=== PATIENT | female | born 1940 | race Hispanic/Latino ===

== ENCOUNTER 2021-05-31 14:04 | Emergency (ER) | payer SELFPAY ==
--- NOTE | 2021-05-31 15:01 | RAD REPORT ---
EXAM DESCRIPTION: CT - Head Brain Wo Cont - 05/31/2021 2:40 pm CLINICAL HISTORY: TRAUMA, fall with head trauma COMPARISON: No comparisons TECHNIQUE: Axial 5 mm thick images of the head were obtained without IV contrast. All CT scans are performed using dose optimization technique as appropriate and may include automated exposure control or mA/KV adjustment according to patient size. FINDINGS: No intracranial hemorrhage, mass, edema or shift of mid-line structures. No acute infarcti on changes seen. No abnormal extra-axial fluid collections. Ventricles are normal. Atrophy changes ar e minimal. Physiologic calcifications are present. Mastoid air cells and visualized portions of the paranasal sinuses are clear. No skullbase fracture or acute bone finding identifiable. IMPRESSION: Negative non-contrast CT head examination for acute or significant finding.
[2021-05-31 15:07] LABS: Absolute Lymphocytes (CBC) 1.3 K/uL (0.7-4.9); Basophils % 0.5 % (0-1.3); Hematocrit 29.5 % (36.0-45.0); Lymphocytes % 19.1 % (15.3-44.8); MPV 8.1 fL (7.6-11.3); RBC Red Blood Cell Count 3.31 M/uL (3.86-4.86)
[2021-05-31 15:30] LABS: ALT/SGPT 23 U/L (12-78); AST/SGOT 22 U/L (15-37); Albumin 3.4 g/dL (3.4-5.0); Alkaline Phosphatase 73 U/L (45-117); BUN Blood Urea Nitrogen 18 mg/dL (7-18); Bicarbonate 23 mmol/L (21-32); Bilirubin Direct 0.1 mg/dL (0-0.2); Bilirubin Total 0.4 mg/dL (0.2-1.0); Glucose Level 93 mg/dL (74-106); Magnesium 1.8 mg/dL (1.8-2.4); NT PRO-BNP 924 pg/mL (<450); Potassium 3.9 mmol/L (3.5-5.1); Protein, Total 6.7 g/dL (6.4-8.2); Protime INR 1.09; Sodium Level 141 mmol/L (136-145); Troponin (Emerg Dept Use Only) < 0.02 ng/mL (0.0-0.045)
--- NOTE | 2021-05-31 16:27 | ER ---
Nurse's Notes [facility] Name: Madison Cerrato Age: 80 yrs Sex: Female : 1940 Arrival Date: 05/31/2021 Time: 14:06 Bed 7 Private MD: Diagnosis: Unspecified superficial injury of other part of head, initial encounter;Contusion of right hand;Contusion of right wrist Presentation: 05/31 14:12 Chief complaint: Patient states: Walking at [facility], feet got tripped up and fell hitting [facility] left side of face on concrete and somehow hurt right arm in the fall. Did not loose consciousness, does not take blood thinners, reports pain to left side of face, left side of neck, and right arm. Reports blurred vision and dizziness occurring after the fall. Coronavirus screen: Client denies travel out of the [place] in the last 14 days. At this time, the client does not indicate any symptoms associated with coronavirus-19. Ebola Screen: No symptoms or risks identified at this time. Initial Sepsis Screen: Does the patient meet any 2 criteria? No. Patient's initial sepsis screen is negative. Does the patient have a suspected source of infection? No. Patient's initial sepsis screen is negative. Risk Assessment: Do you want to hurt yourself or someone else? Patient reports no desire to harm self or others. Onset of symptoms was May 31, 2021 at 14:00. Care prior to arrival: None. 14:12 Method Of Arrival: Wheelchair [facility] 14:12 Acuity: JOHN 2 [facility] 14:24 Mechanism of Injury: Fall from standing position. Trauma event details: Injury occurred jl in the [facility], Injury occurred: [facility] Injury occurred: May 31, 2021 Injury occurred at: 14:00. Trauma Activation: Alert Physician: ED Physician; Name: ; Notified At: ; Arrived At: Physician: General Surgeon; Name: ; Notified At: ; Arrived At: Physician: Radiology; Name: ; Notified At: ; Arrived At: Physician: Respiratory; Name: ; Notified At: ; Arrived At: Physician: Lab; Name: ; Notified At: ; Arrived At: Historical: - Allergies: 14:18 No Known Allergies; jl7 - PMHx: 14:18 Hypertensive disorder; Diabetes mellitus; Kidney disease; Congestive heart failure; jl7 14:20 CVA; jl7 - Immunization history:: Adult Immunizations up to date, Client reports receiving the 2nd dose of the Covid vaccine. - Social history:: Smoking status: Patient denies any tobacco usage or history of. - Immunization history: Last tetanus immunization: < 5 years ago. Screenin:30 Abuse screen: Denies threats or abuse. Denies injuries from another. Tuberculosis hb screening: No symptoms or risk factors identified. Primary Survey: 14:23 NO uncontrolled hemorrhage observed. A: The patient is alert. Airway: patent. hb Breathing/Chest: Respiratory effort: spontaneous, unlabored. Circulation: Skin color: pink. Disability Alert. Exposure/Environment: No obvious injuries are noted at this time. Reassessment Airway Airway. 15:00 Reassessment Airway Airway Patent Breathing/Chest Respiratory pattern Regular hb Respiratory effort Spontaneous Unlabored Circulation Color [place] Disability Alert. Secondary Survey: 15:00 HEENT: Face Other small contusion noted to left forehead. Gastrointestinal: No deficits hb noted. : No deficits noted. No signs and/or symptoms were reported regarding the genitourinary system. Musculoskeletal: Reports right arm pain. Assessment: 14:30 General: Appears in no apparent distress. uncomfortable, Behavior is calm, cooperative. hb Pain: Pain currently is 8 out of 10 on a pain scale. Neuro: Level of Consciousness is awake, alert, obeys commands, Oriented to person, place, time, situation. EENT: No signs and/or symptoms were reported regarding the EENT system. Cardiovascular: Patient's skin is warm and dry. Respiratory: Respiratory effort is even, unlabored, Respiratory pattern is regular, symmetrical. GI: No signs and/or symptoms were reported involving the gastrointestinal system. : No signs and/or symptoms were reported regarding the genitourinary system. Derm: Skin is pink, warm \T\ dry. Musculoskeletal: Reports right arm pain. 15:30 Reassessment: Patient appears in no apparent distress at this time. Patient and/or hb family updated on plan of care and expected duration. Pain level reassessed. Patient is alert, oriented x 3, equal unlabored respirations, skin warm/dry/pink. Vital Signs: 14:12 BP 129 / 60; Pulse 70; Resp 16; Temp 98; Pulse Ox 100% ; Weight 62.6 kg; Pain 10/10; jl7 15:30 BP 128 / 81; Pulse 61; Resp 17; Pulse Ox 99% ; Pain 5/10; hb Terrell Coma Score: 14:25 Eye Response: spontaneous(4). Verbal Response: oriented(5). Motor Response: obeys hb commands(6). Total: 15. Trauma Score (Adult): 14:25 Eye Response: spontaneous(1); Verbal Response: oriented(1); Motor Response: obeys hb commands(2); Systolic BP: > 89 mm Hg(4); Respiratory Rate: 10 to 29 per min(4); Terrell Score: 15; Trauma Score: 12 15:30 Eye Response: spontaneous(1); Verbal Response: oriented(1); Motor Response: obeys hb commands(2); Systolic BP: > 89 mm Hg(4); Respiratory Rate: 10 to 29 per min(4); [place] Score: 15; Trauma Score: 12 ED Course: 14:06 Patient arrived in ED. as 14:18 Triage completed. jl7 14:20 Arm band placed on right wrist. jl7 14:21 Aries Medina PA is PHCP. jr8 14:21 Daryl Erickson MD is Attending Physician. jr8 14:40 CT Head Brain wo Cont In Process Unspecified. EDMS 15:00 Basic Metabolic Panel Sent. em1 15:00 CBC with Diff Sent. em1 15:00 LFT's Sent. em1 15:00 Magnesium Sent. em1 15:00 NT PRO-BNP Sent. em1 15:00 PT-INR Sent. em1 15:00 Troponin (emerg Dept Use Only) Sent. em1 15:00 Initial lab(s) drawn, by co, sent to lab. Inserted saline lock: 20 gauge in left em1 forearm, using aseptic technique. Blood collected. 15:01 XRAY Chest (1 view) In Process Unspecified. EDMS 15:01 XRAY Hand RIGHT 3 View In Process Unspecified. EDMS 15:02 XRAY Wrist RIGHT 3 view In Process Unspecified. EDMS 15:30 Patient has correct armband on for positive identification. Bed in low position. Call hb light in reach. 15:30 Patient maintains SpO2 saturation greater than 95% on room air. hb 15:41 Sachi Soto, RN is Primary Nurse. hb 16:56 No provider procedures requiring assistance completed. IV discontinued, intact, hb bleeding controlled. Administered Medications: No medications were administered Intake: 15:30 PO: 0ml; Total: 0ml. hb Outcome: 16:26 Discharge ordered by MD. mcfadden 16:56 Discharged to home ambulatory, with family. hb 16:56 Condition: stable 16:56 Discharge instructions given to patient, family, Instructed on discharge instructions, follow up and referral plans. medication usage, Demonstrated understanding of instructions, follow-up care, medications. 16:57 Patient left the ED. hb Signatures: Dispatcher [employer] EDMS Elidia Steward Eric em1 Aries Medina PA PA jr8 Sachi Soto, RN RN Pritesh Rosario RN RN jl7
--- NOTE | 2021-05-31 16:27 | EDPHYS ---
Physician Documentation [facility] Name: Madison Cerrato Age: 80 yrs Sex: Female : 1940 Arrival Date: 05/31/2021 Time: 14:06 Bed 7 Private MD: ED Physician Daryl Erickson HPI: 05/31 15:44 This 80 yrs old Female presents to ER via Wheelchair with complaints of Fall jr8 Injury. 15:44 Details of fall: The patient fell from an upright position, while standing. Onset: The jr8 symptoms/episode began/occurred acutely, today. Associated injuries: The patient sustained injury to the head, hematoma, pain, swelling, tenderness, right hand, ecchymosis, painful injury. Severity of symptoms: At their worst the symptoms were moderate, in the emergency department the symptoms are unchanged. The patient has not experienced similar symptoms in the past. The patient has not recently seen a physician. Daughter of patient stated that she was walking and then fell forward hitting head and hand. Pain since incident but denies LOC. Patient denies any preceding symptoms prior to fall . Historical: - Allergies: 14:18 No Known Allergies; jl7 - PMHx: 14:18 Hypertensive disorder; Diabetes mellitus; Kidney disease; Congestive heart failure; jl7 14:20 CVA; jl7 - Immunization history:: Adult Immunizations up to date, Client reports receiving the 2nd dose of the Covid vaccine. - Social history:: Smoking status: Patient denies any tobacco usage or history of. - Immunization history: Last tetanus immunization: < 5 years ago. ROS: 15:44 Eyes: Negative for injury, pain, redness, and discharge, ENT: Negative for injury, jr8 pain, and discharge, Neck: Negative for injury, pain, and swelling, Cardiovascular: Negative for chest pain, palpitations, and edema, Respiratory: Negative for shortness of breath, cough, wheezing, and pleuritic chest pain, Abdomen/GI: Negative for abdominal pain, nausea, vomiting, diarrhea, and constipation, Back: Negative for injury and pain, Skin: Negative for injury, rash, and discoloration. 15:44 MS/extremity: Positive for ecchymosis, pain, tenderness, of the right hand. 15:44 Neuro: Positive for dizziness, headache. Exam: 15:44 Constitutional: This is a well developed, well nourished patient who is awake, alert, jr8 and in no acute distress. Eyes: Pupils equal round and reactive to light, extra-ocular motions intact. Lids and lashes normal. Conjunctiva and sclera are non-icteric and not injected. Cornea within normal limits. Periorbital areas with no swelling, redness, or edema. ENT: Nares patent. No nasal discharge, no septal abnormalities noted. Tympanic membranes are normal and external auditory canals are clear. Oropharynx with no redness, swelling, or masses, exudates, or evidence of obstruction, uvula midline. Mucous membranes moist. Neck: Trachea midline, no thyromegaly or masses palpated, and no cervical lymphadenopathy. Supple, full range of motion without nuchal rigidity, or vertebral point tenderness. No Meningismus. Chest/axilla: Normal chest wall appearance and motion. Nontender with no deformity. No lesions are appreciated. Cardiovascular: Regular rate and rhythm with a normal S1 and S2. No gallops, murmurs, or rubs. Normal PMI, no JVD. No pulse deficits. Respiratory: Lungs have equal breath sounds bilaterally, clear to auscultation and percussion. No rales, rhonchi or wheezes noted. No increased work of breathing, no retractions or nasal flaring. Abdomen/GI: Soft, non-tender, with normal bowel sounds. No distension or tympany. No guarding or rebound. No evidence of tenderness throughout. Back: No spinal tenderness. No costovertebral tenderness. Full range of motion. Skin: Warm, dry with normal turgor. Normal color with no rashes, no lesions, and no evidence of cellulitis. Neuro: Awake and alert, GCS 15, oriented to person, place, time, and situation. Cranial nerves II-XII grossly intact. Motor strength 5/5 in all extremities. Sensory grossly intact. 15:44 Head/face: Noted is hematoma, that is mild, of the left outer supraorbital region. 15:44 Musculoskeletal/extremity: Extremities: grossly normal except: noted in the right hand: ecchymosis, pain, tenderness, noted in the right wrist: ecchymosis, pain, swelling, tenderness, dorsal wrist, ROM: intact in all extremities, Circulation is intact in all extremities. Sensation intact. Vital Signs: 14:12 BP 129 / 60; Pulse 70; Resp 16; Temp 98; Pulse Ox 100% ; Weight 62.6 kg; Pain 10/10; jl7 15:30 BP 128 / 81; Pulse 61; Resp 17; Pulse Ox 99% ; Pain 5/10; hb [place] Coma Score: 14:25 Eye Response: spontaneous(4). Verbal Response: oriented(5). Motor Response: obeys hb commands(6). Total: 15. Trauma Score (Adult): 14:25 Eye Response: spontaneous(1); Verbal Response: oriented(1); Motor Response: obeys hb commands(2); Systolic BP: > 89 mm Hg(4); Respiratory Rate: 10 to 29 per min(4); [place] Score: 15; Trauma Score: 12 15:30 Eye Response: spontaneous(1); Verbal Response: oriented(1); Motor Response: obeys hb commands(2); Systolic BP: > 89 mm Hg(4); Respiratory Rate: 10 to 29 per min(4); [place] Score: 15; Trauma Score: 12 Procedures: 16:24 Splinting: Splint applied to right hand using wrist splint, applied by myself. Examined jr8 by me, post splint application: neurovascular intact, 2+ distal pulses palpable, brisk capillary refill noted, Patient tolerated well. MDM: 14:21 Patient medically screened. jr8 16:24 Data reviewed: vital signs, nurses notes, lab test result(s), EKG, radiologic studies, jr8 CT scan, plain films. Data interpreted: Pulse oximetry: on room air is 99 %. Interpretation: normal. Counseling: I had a detailed discussion with the patient and/or guardian regarding: the historical points, exam findings, and any diagnostic results supporting the discharge/admit diagnosis, lab results, radiology results, the need for outpatient follow up, a family practitioner, a orthopedic surgeon, to return to the emergency department if symptoms worsen or persist or if there are any questions or concerns that arise at home. 16:26 ED course: No acute CT or plain film findings. S/S given to daughter to watch for that jr8 would indicate worsening of head injury. 05/31 14:31 Order name: Basic Metabolic Panel; Complete Time: 15:37 jr8 05/31 14:31 Order name: CBC with Diff; Complete Time: 15:37 jr8 05/31 14:31 Order name: LFT's; Complete Time: 15:37 05/31 14:31 Order name: Magnesium; Complete Time: 15:37 05/31 14:31 Order name: NT PRO-BNP; Complete Time: 15:37 05/31 14:31 Order name: PT-INR; Complete Time: 15:52 05/31 14:31 Order name: Troponin (emerg Dept Use Only); Complete Time: 15:37 05/31 14:31 Order name: XRAY Chest (1 view); Complete Time: 19:43 05/31 14:31 Order name: Cardiac monitoring; Complete Time: 15:41 05/31 14:31 Order name: EKG - Nurse/Tech 05/31 14:31 Order name: CT Head Brain wo Cont; Complete Time: 15:24 05/31 14:31 Order name: XRAY Hand RIGHT 3 View; Complete Time: 19:43 05/31 14:31 Order name: XRAY Wrist RIGHT 3 view; Complete Time: 19:43 05/31 14:31 Order name: IV Saline Lock; Complete Time: 15:00 05/31 14:31 Order name: Labs collected and sent; Complete Time: 15:00 05/31 14:31 Order name: O2 Per Protocol; Complete Time: 15:41 05/31 14:31 Order name: O2 Sat Monitoring; Complete Time: 15:41 Administered Medications: No medications were administered Disposition: 06/01 08:43 Co-signature as Attending Physician, Daryl Erickson MD I agree with the assessment and kdr plan of care. Disposition Summary: 05/31/21 16:26 Discharge Ordered Location: Home jr8 Problem: new jr8 Symptoms: have improved jr8 Condition: Stable jr8 Diagnosis - Unspecified superficial injury of other part of head, initial encounter jr8 - Contusion of right hand jr8 - Contusion of right wrist jr8 Followup: jr8 - With: Private Physician - When: 2 - 3 days - Reason: Recheck today's complaints, Continuance of care, Re-evaluation by your physician Discharge Instructions: - Discharge Summary Sheet jr8 - Contusion jr8 - Head Injury, Adult jr8 Forms: - Medication Reconciliation Form jr8 - Thank You Letter jr8 - Antibiotic Education jr8 - Prescription Opioid Use jr8 Signatures: Dispatcher [employer] EDMS Daryl Erickson MD MD kdr Roszak, Josh, PA PA jr8 Sachi Soto, RN RN Pritesh Rosario RN RN jl7 Corrections: (The following items were deleted from the chart) 05/31 15:47 15:44 Associated injuries: The patient sustained injury to the head, hematoma, pain, jr8 swelling, tenderness, left hand, ecchymosis, painful injury, jr8 15:47 15:44 Daughter of patient stated that she was walking and then fell forward hitting jr8 head and hand. Pain since incident but denies LOC. Patient denies any preceding symptoms prior to fall . jr8
--- NOTE | 2021-05-31 16:32 | RAD REPORT ---
EXAM DESCRIPTION: RAD - Wrist Right 3 View - 05/31/2021 3:01 pm CLINICAL HISTORY: PAINfall, wrist pain COMPARISON: No comparisons FINDINGS: No fracture is identified. There is no dislocation or periosteal reaction noted. Radiocarp al joint space narrowing is present. There are sclerotic changes in the lunate bone and developing AV N of the lunate bone is a possibility. This is a process unrelated to the current traumatic event. De generative changes are present at the trapezium first metacarpal articulation mild in degree. Patient has positive ulnar variance configuration. Degenerative changes are seen in the triangular fi brocartilage. Bones overall are osteopenic. No foreign body or other soft tissue abnormality. IMPRESSION: Wrist degenerative changes are present as detailed. No fracture or acute bone finding confirmed. Sclerotic changes in the lunate bone could potentially represent developing AVN.
--- NOTE | 2021-05-31 16:33 | RAD REPORT ---
EXAM DESCRIPTION: RAD - Chest Single View - 05/31/2021 3:01 pm CLINICAL HISTORY: DYSPNEA, fall, chest trauma COMPARISON: None TECHNIQUE: AP portable chest image was obtained 05/31/2021 3:01 pm . FINDINGS: Lungs are clear. Heart and vasculature are normal. No measurable pleural effusion and no p neumothorax. No acute bone finding confirmed. Cortical irregularity seen in the anterior left third a nd fourth ribs is believed to be old trauma. No acute aortic findings suspected. IMPRESSION: No pneumothorax, pulmonary contusion or acute chest finding. Evidence for old rib injury anterior left third and fourth ribs.
--- NOTE | 2021-05-31 16:36 | RAD REPORT ---
EXAM DESCRIPTION: RAD - Hand Right 3 View - 05/31/2021 3:01 pm CLINICAL HISTORY: PAIN, fall, hand and wrist pain COMPARISON: No comparisons FINDINGS: No fracture is identified. There is no dislocation or periosteal reaction noted. IP joint space narrowing is present. Findings are most pronounced at the fifth DIP joint where there is persi stent flexion. No acute bone avulsion is seen at this site. MCP joint degenerative change is mild, mo re pronounced at the second MCP joint. No acute carpal bone finding. Additional carpal bone findings are detailed in separate wrist report. Soft tissue swelling is present around the distal ulna. No acute bone findings seen. No foreign body identified. IMPRESSION: Right hand degenerative changes are present. No acute findings seen.
[2021-05-31 17:04] VITALS: TEMP 98
[2021-05-31 17:06] VITALS: BP 128/81; O2SAT 99
== END 2021-05-31 16:57 | disposition home or self-care (01) ==
LOC: ER 14:04
DX: S00.90XA Unspecified superficial injury of unspecified part of head, initial encounter (principal); S60.221A Contusion of right hand, initial encounter; S60.211A Contusion of right wrist, initial encounter; W19.XXXA Unspecified fall, initial encounter; Y93.01 Activity, walking, marching and hiking; Z86.73 Personal history of transient ischemic attack (TIA), and cerebral infarction without residual deficits; I10 Essential (primary) hypertension
CPT/HCPCS: 36415; 70450; 71045; 80048; 80076; 83735; 83880; 84484; 85025; 85610

== ENCOUNTER 2021-06-06 22:19 | Observation (INO) | payer OTHER, SELFPAY ==
[2021-06-06 22:43] LABS: Absolute Lymphocytes (CBC) 1.9 K/uL (0.7-4.9); Basophils % 0.8 % (0-1.3); Hematocrit 31.4 % (36.0-45.0); Lymphocytes % 23.7 % (15.3-44.8); MPV 8.6 fL (7.6-11.3)
[2021-06-06 22:44] LABS: Protime INR 1.06
[2021-06-06 22:56] LABS: ALT/SGPT 21 U/L (12-78); AST/SGOT 16 U/L (15-37); Albumin 3.5 g/dL (3.4-5.0); Alkaline Phosphatase 82 U/L (45-117); BUN Blood Urea Nitrogen 18 mg/dL (7-18); Bicarbonate 24 mmol/L (21-32); Bilirubin Direct 0.1 mg/dL (0-0.2); Bilirubin Total 0.3 mg/dL (0.2-1.0); Glucose Level 88 mg/dL (74-106); Magnesium 1.8 mg/dL (1.8-2.4); NT PRO-BNP 434 pg/mL (<450); Potassium 3.6 mmol/L (3.5-5.1); Sodium Level 141 mmol/L (136-145); Troponin (Emerg Dept Use Only) < 0.02 ng/mL (0.0-0.045)
[2021-06-06 22:57] LABS: Urine Blood Negative (Negative); Urine Glucose Negative (Negative); Urine Protein Trace (Negative); Urine Specific Gravity <=1.005 (1.005-1.030); Urine pH 6.5 (5.0-7.0)
--- NOTE | 2021-06-07 02:11 | ER ---
Nurse's Notes [facility] Name: Madison Cerrato Age: 80 yrs Sex: Female : 1940 Arrival Date: 06/06/2021 Time: 22:22 Bed 3 Private MD: Diagnosis: Chest pain, unspecified;Syncope Presentation: 06/06 22:39 Chief complaint: EMS states: Reports pt was found sitting next to her bed, family ea reports she was arguing with them earlier. Pt complaining of chest pain. Coronavirus screen: At this time, the client does not indicate any symptoms associated with coronavirus-19. Ebola Screen: No symptoms or risks identified at this time. Initial Sepsis Screen: Does the patient meet any 2 criteria? No. Patient's initial sepsis screen is negative. Does the patient have a suspected source of infection? No. Patient's initial sepsis screen is negative. Risk Assessment: Do you want to hurt yourself or someone else? Patient reports no desire to harm self or others. Onset of symptoms was June 06, 2021. 22:39 Method Of Arrival: EMS: [facility] ea 22:39 Acuity: JOHN 3 ea Historical: - PMHx: 23:02 Congestive heart failure; CVA; diabetes mellitus; Hypertensive disorder; kidney disease;ea - Immunization history:: Adult Immunizations up to date. - Social history:: Smoking status: Patient denies any tobacco usage or history of. Screenin:39 Abuse screen: Denies threats or abuse. Nutritional screening: No deficits noted. ea Tuberculosis screening: No symptoms or risk factors identified. Fall Risk IV access (20 points). Assessment: 22:40 General: Appears in no apparent distress. Behavior is calm, cooperative, appropriate ea for age. Pain: Denies pain. Neuro: Level of Consciousness is awake, alert, obeys commands, Oriented to person, place, time. Cardiovascular: Patient's skin is warm and dry. Respiratory: Airway is patent Respiratory effort is even, unlabored, Respiratory pattern is regular, symmetrical. Derm: Skin is pink, warm \T\ dry. 06/07 00:02 Reassessment: Pt taken to CT. ea 03:13 Reassessment: Patient and/or family updated on plan of care and expected duration. Pain ea level reassessed. Patient is alert, oriented x 3, equal unlabored respirations, skin warm/dry/pink. Gabrielle (daughter) [phone]. 03:45 Reassessment: Patient and/or family updated on plan of care and expected duration. Pain ea level reassessed. Patient is alert, oriented x 3, equal unlabored respirations, skin warm/dry/pink. 04:34 Reassessment: Patient and/or family updated on plan of care and expected duration. Pain ea level reassessed. Patient is alert, oriented x 3, equal unlabored respirations, skin warm/dry/pink. Report given to receiving nurse. Vital Signs: 06/06 22:39 BP 152 / 72; Pulse 77; Resp 18; Temp 97.6; Pulse Ox 100% ; ea 23:45 BP 170 / 99; Pulse 81; Resp 18; Pulse Ox 98% on R/A; ea 06/07 00:58 BP 147 / 68; Pulse 75; Resp 19 S; Pulse Ox 100% on R/A; ad5 02:35 BP 162 / 68 Supine; Pulse 69; ea 02:37 BP 164 / 75; Pulse 82; ea 02:38 BP 134 / 62; Pulse 81; ea 03:43 BP 136 / 80; Pulse 73; Resp 16 S; Pulse Ox 100% on R/A; ad5 04:35 BP 137 / 78; Pulse 70; Resp 17; Temp 97.6; Pulse Ox 99% ; ea ED Course: 06/06 22:22 Patient arrived in ED. mw2 22:26 Rachael Phoenix, RN is Primary Nurse. ea 22:39 Patient has correct armband on for positive identification. Bed in low position. Call ea light in reach. Side rails up X2. monitoring and evaluation advisor on. Pulse ox on. NIBP on. 22:39 Arm band placed on right wrist. Patient placed in an exam room, on a stretcher, on ea pulse oximetry. 22:41 XRAY Chest (1 view) In Process Unspecified. EDMS 22:43 Primitivo Garcia MD is Attending Physician. 7 23:01 Triage completed. ea 06/07 00:12 CT Head Brain wo Cont In Process Unspecified. EDMS 00:12 CT Chest Wo Con In Process Unspecified. EDMS 02:09 Mp George MD is Hospitalizing Provider. 7 02:44 No provider procedures requiring assistance completed. Patient admitted, IV remains in ea place. Administered Medications: No medications were administered Outcome: 02:10 Decision to Hospitalize by Provider. [facility] 02:44 Instructed on the need for admit, Demonstrated understanding of instructions. ea 04:25 Condition: stable ea 04:34 Admitted to Med/surg accompanied by nurse, via stretcher, with chart, Report called to ea Receiving nurse on fourth floor 04:35 Patient left the ED. ea Signatures: Dispatcher [employer] EDRachael Escalante RN RN Ty Rachel mw2 Primitivo Garcia MD MD 7 Aba Torrez ad5
--- NOTE | 2021-06-07 02:11 | EDPHYS ---
Physician Documentation [facility] Name: Madison Cerrato Age: 80 yrs Sex: Female : 1940 Arrival Date: 06/06/2021 Time: 22:22 Bed 3 Private MD: ED Physician Primitivo Garcia HPI: 06/06 23:49 This 80 yrs old Female presents to ER via EMS with complaints of Chest pain. [facility] 23:49 The patient or guardian reports chest pain that is located primarily in the substernal mh7 area. Onset: just prior to arrival, today. The pain does not radiate. 23:50 Associated signs and symptoms: Pertinent positives: syncope, Pertinent negatives: mh7 abdominal pain, cough, diaphoresis, dizziness, headache, lower extremity pain, lower extremity swelling, lightheadedness, nausea, near syncope, palpitations, recent travel, shortness of breath, vomiting. The chest pain is described as a heaviness. Duration: The patient or guardian reports multiple episodes, that are intermittent, that wax and wane. Modifying factors: The symptoms are alleviated by nothing. the symptoms are aggravated by emotionally stressful situations. Severity of pain: At its worst the pain was moderate today, in the emergency department the pain has improved markedly. Historical: - PMHx: 23:02 Congestive heart failure; CVA; diabetes mellitus; Hypertensive disorder; kidney disease;ea - Immunization history:: Adult Immunizations up to date. - Social history:: Smoking status: Patient denies any tobacco usage or history of. ROS: 23:50 Constitutional: Negative for fever, chills, and weight loss, Eyes: Negative for injury, mh7 pain, redness, and discharge, ENT: Negative for injury, pain, and discharge, Neck: Negative for injury, pain, and swelling, Respiratory: Negative for shortness of breath, cough, wheezing, and pleuritic chest pain, Abdomen/GI: Negative for abdominal pain, nausea, vomiting, diarrhea, and constipation, Back: Negative for injury and pain, : Negative for injury, bleeding, discharge, and swelling, MS/Extremity: Negative for injury and deformity, Skin: Negative for injury, rash, and discoloration, Neuro: Negative for headache, weakness, numbness, tingling, and seizure, Psych: Negative for depression, anxiety, suicide ideation, homicidal ideation, and hallucinations, Allergy/Immunology: Negative for hives, rash, and allergies, Endocrine: Negative for neck swelling, polydipsia, polyuria, polyphagia, and marked weight changes, Hematologic/Lymphatic: Negative for swollen nodes, abnormal bleeding, and unusual bruising. Exam: 23:50 Constitutional: This is a well developed, well nourished patient who is awake, alert, mh7 and in no acute distress. Head/Face: Normocephalic, atraumatic. Eyes: Pupils equal round and reactive to light, extra-ocular motions intact. Lids and lashes normal. Conjunctiva and sclera are non-icteric and not injected. Cornea within normal limits. Periorbital areas with no swelling, redness, or edema. Neck: Trachea midline, no thyromegaly or masses palpated, and no cervical lymphadenopathy. Supple, full range of motion without nuchal rigidity, or vertebral point tenderness. No Meningismus. Chest/axilla: Normal chest wall appearance and motion. Nontender with no deformity. No lesions are appreciated. Cardiovascular: Regular rate and rhythm with a normal S1 and S2. No gallops, murmurs, or rubs. Normal PMI, no JVD. No pulse deficits. Respiratory: Lungs have equal breath sounds bilaterally, clear to auscultation and percussion. No rales, rhonchi or wheezes noted. No increased work of breathing, no retractions or nasal flaring. Abdomen/GI: Soft, non-tender, with normal bowel sounds. No distension or tympany. No guarding or rebound. No evidence of tenderness throughout. Back: No spinal tenderness. No costovertebral tenderness. Full range of motion. Skin: Warm, dry with normal turgor. Normal color with no rashes, no lesions, and no evidence of cellulitis. MS/ Extremity: Pulses equal, no cyanosis. Neurovascular intact. Full, normal range of motion. Neuro: Awake and alert, GCS 15, oriented to person, place, time, and situation. Cranial nerves II-XII grossly intact. Motor strength 5/5 in all extremities. Sensory grossly intact. Cerebellar exam normal. Normal gait. Psych: Awake, alert, with orientation to person, place and time. Behavior, mood, and affect are within normal limits. Vital Signs: 22:39 BP 152 / 72; Pulse 77; Resp 18; Temp 97.6; Pulse Ox 100% ; ea 23:45 BP 170 / 99; Pulse 81; Resp 18; Pulse Ox 98% on R/A; ea 06/07 00:58 BP 147 / 68; Pulse 75; Resp 19 S; Pulse Ox 100% on R/A; ad5 02:35 BP 162 / 68 Supine; Pulse 69; ea 02:37 BP 164 / 75; Pulse 82; ea 02:38 BP 134 / 62; Pulse 81; ea 03:43 BP 136 / 80; Pulse 73; Resp 16 S; Pulse Ox 100% on R/A; ad5 04:35 BP 137 / 78; Pulse 70; Resp 17; Temp 97.6; Pulse Ox 99% ; ea MDM: 02:06 Differential diagnosis: abnormal EKG, acute myocardial infarction, acute pericarditis, mh7 anxiety, coronary artery disease chest wall pain, congestive heart failure costochondritis, myocarditis, pericarditis. HEART Score: History: Moderately Suspicious (1), ECG: Non specific repolarization disturbance / LBTB / PM (1), Age: > or = 65 years (2), Risk Factors: 1 or 2 risk factors (1), [Hypertension] [DM] Troponin: < or = 1 x Normal Limit (0), Total Score = 6. Data reviewed: vital signs, nurses notes, EMS record, lab test result(s), cardiac enzymes, CBC, electrolytes, EKG, radiologic studies, CT scan, plain films. Data interpreted: Pulse oximetry: on room air is 100 %. Interpretation: normal. Counseling: I had a detailed discussion with the patient and/or guardian regarding: the historical points, exam findings, and any diagnostic results supporting the discharge/admit diagnosis, the presence of at least one elevated blood pressure reading (>120/80) during this emergency department visit, lab results, radiology results, the need for further work-up and treatment in the hospital. Response to treatment: the patient's symptoms have markedly improved after treatment. 02:10 Patient medically screened. [facility] 06/06 22:26 Order name: Basic Metabolic Panel 06/06 22:26 Order name: CBC with Diff; Complete Time: 22:59 06/06 22:26 Order name: LFT's 06/06 22:26 Order name: Magnesium 06/06 22:26 Order name: NT PRO-BNP 06/06 22:26 Order name: PT-INR 06/06 22:26 Order name: Troponin (emerg Dept Use Only) 06/06 22:57 Order name: Urine Dipstick-Ancillary; Complete Time: 22:59 [facility] 06/07 02:31 Order name: D-Dimer [facility] 06/07 02:31 Order name: C-Reactive Protein [facility] 06/07 03:54 Order name: SARS-COV-2 RT PCR [facility] 06/06 22:26 Order name: XRAY Chest (1 view) 06/06 22:26 Order name: EKG; Complete Time: 22:27 06/06 22:26 Order name: Cardiac monitoring; Complete Time: 22:39 06/06 22:26 Order name: EKG - Nurse/Tech; Complete Time: 22:38 06/06 22:26 Order name: IV Saline Lock; Complete Time: 22:39 06/06 22:26 Order name: Labs collected and sent; Complete Time: 22:39 06/06 22:26 Order name: O2 Per Protocol; Complete Time: 22:39 06/06 22:26 Order name: O2 Sat Monitoring; Complete Time: 22:39 06/06 23:02 Order name: CT Head Brain wo Cont [facility] 06/06 23:02 Order name: CT Chest Wo Con [facility] 06/07 02:18 Order name: Orthostatics; Complete Time: 02:46 la1 Administered Medications: No medications were administered Disposition Summary: 06/07/21 02:10 Hospitalization Ordered Hospitalization Status: Observation [facility] Provider: Mp George Myesha Location: Telemetry/MedSurg (observation) [facility] Condition: Stable [facility] Problem: new [facility] Symptoms: have improved [facility] Bed/Room Type: Standard [facility] Room Assignment: 404(06/07/21 04:19) tl1 Diagnosis - Chest pain, unspecified [facility] - Syncope [facility] Forms: - Medication Reconciliation Form [facility] - SBAR form [facility] Signatures: Dispatcher [employer] EDMS Fortino Greer FNP-C BRIDAL CONSULTANT-Cla1 Jennifer Chandler RN RN tl1 Rachael Phoenix RN RN Primitivo Sousa MD MD [facility] Corrections: (The following items were deleted from the chart) 02: 02:01 C-REACTIVE PROTEIN+C.LAB.BRMason ordered. EDMS EDMS 02: 02:18 D-DIMER+COAG.LAB.SARAH ordered. EDMS EDMS 02:33 02:22 CORONAVIRUS+MR.LAB.SARAH ordered. EDMS EDMS 04:19 02:10 mh7 tl1
--- NOTE | 2021-06-07 02:36 | P.HP ---
Certification for Inpatient Patient admitted to: Observation With expected LOS: <2 Midnights Patient will require the following post-hospital care: None Practitioner: I am a practitioner with admitting privileges, knowledge of patient current condition, hospital course, and medical plan of care. Services: Services provided to patient in accordance with Admission requirements found in Title 42 Section 412.3 of the Code of Federal Regulations <Fortino Greer - Last Filed: 06/07/21 02:33> Patient History Date of Service: 06/07/21 Primary Care Provider: Out of town Reason for admission: Chest pain, syncope History of Present Illness: 80-year-old female with history of hypertension, CAD, anxiety/ depression presents emergency department for chest pain/syncope. Patient reports that she has at home when she bent over to try to tie her shoes and got a sudden pain across her chest radiating to the left arm with associated dizziness. Patient reports that she then fell to the ground, patient unsure of why or how exactly she fell, does not recall all events. Patient also reports that approximately a week ago she had another fall while at the grocery store where she did not recall surrounding events. Patient denies previous episodes similar to this. Patient evaluated in the emergency department, labs significant for hemoglobin 10.6 hematocrit 31.4 chloride 110 creatinine 1.[address] head without any acute findings , CT chest not contrast negative for any acute findings. When I saw the patient in the ER she is awake, alert, oriented x3. Patient is very poor historian, reports she had a heart catheterization a number of years ago. D-dimer ordered, orthostatics vital signs ordered to further evaluate cause of syncope/chest pain. Patient chest pain free at this time, vital signs stable. Will admit under observation. - Past Medical/Surgical History -: HTN -: CAD -: Anxiety/depression -: Suspect CKD 3 -: Knee surgery -: Hysterectomy -: Cholecystectomy Psychosocial/ Personal History: Retired, lives alone - Family History Mother -: Cancer - Social History Smoking Status: Never smoker Alcohol use: No CD- Drugs: No Caffeine use: Yes Place of Residence: Home <Fortino Greer - Last Filed: 06/07/21 02:33> Date of Service: 06/07/21 <Mp George - Last Filed: 06/07/21 19:39> Review of Systems 10-point ROS is otherwise unremarkable Cardiovascular: Chest Pain, Light Headedness, As per HPI <Fortino Greer - Last Filed: 06/07/21 02:33> Physical Examination - Physical Exam General: Alert, In no apparent distress, Oriented x3 HEENT: Atraumatic, PERRLA, Mucous membr. moist/pink, EOMI, Sclerae nonicteric Neck: Supple, 2+ carotid pulse no bruit, No LAD, Without JVD or thyroid abnormality Respiratory: Clear to auscultation bilaterally, Normal air movement Cardiovascular: Regular rate/rhythm, Normal S1 S2 Gastrointestinal: Normal bowel sounds, No tenderness Musculoskeletal: No tenderness Integumentary: No rashes Neurological: Normal gait, Normal speech, Normal strength at 5/5 x4 extr, Normal tone, Normal affect Lymphatics: No axilla or inguinal lymphadenopathy - Studies Laboratory Data (last 24 hrs) 06/06/21 22:25: PT 12.2, INR 1.06 06/06/21 22:25: WBC 8.00, Hgb 10.6 L, Hct 31.4 L, Plt Count 312 06/06/21 22:25: Sodium 141, Potassium 3.6, BUN 18, Creatinine 1.32 H, Glucose 88, Magnesium 1.8, Total Bilirubin 0.3, AST 16, ALT 21, Alkaline Phosphatase 82 <Fortino Greer - Last Filed: 06/07/21 02:33> - Studies Laboratory Data (last 24 hrs) 06/06/21 22:25: PT 12.2, INR 1.06 06/06/21 22:25: WBC 8.00, Hgb 10.6 L, Hct 31.4 L, Plt Count 312 06/06/21 22:25: Sodium 141, Potassium 3.6, BUN 18, Creatinine 1.32 H, Glucose 88, Magnesium 1.8, Total Bilirubin 0.3, AST 16, ALT 21, Alkaline Phosphatase 82 <Mp George - Last Filed: 06/07/21 19:39> Assessment and Plan - Plan Assessment Chest pain/syncope with history of CAD Hypertension Renal insufficiency suspect CKD 3 Anxiety/depression Plan Chest pain/syncope with history of CAD: Initial troponin, chest x-ray, EKG, CT chest without contrast negative for any acute findings. Will trend troponins, monitor on telemetry, obtain orthostatics vital signs, D-dimer level, echocardiogram, carotid artery ultrasound. Patient without any focal neurological deficits, chest pain free at this time. Cardiology consulted. DVT prophylaxis Lovenox 40 mg subcutaneous once daily. Hypertension: Obtain and continue home medications as appropriate. Renal insufficiency suspect CKD 3: Patient had labs approximately 1 week prior with similar creatinine/GFR, likely longstanding CKD. Patient poor historian, will continue gentle hydration overnight and recheck labs. Anxiety/depression: Continue home medications. Discharge Plan: Home Plan to discharge in: 24 Hours - Advance Directives Does patient have a Living Will: No Does patient have a Durable POA for Healthcare: No - Code Status/Comfort Care Code Status Assessed: Yes (Full code) Critical Care: No Time Spent Managing Pts Care (In Minutes): 55 <Fortino Greer - Last Filed: 06/07/21 02:33> - Plan plan of care reviewed as noted above. Discussed with daughter - patient has 6-12 month history of worsening hallucinations, paranoia, delusions, memory/cognitive decline. Also reports they believe she has been showing early signs of dementia for the last few years. requesting pysch consult/eval as well so far chest pain eval has been negative, echo ordered. continue telemetry <Mp George - Last Filed: 06/07/21 19:39>
[2021-06-07 02:57] LABS: C-Reactive Protein < 2.90 mg/L (<3.00)
[2021-06-07 04:52] VITALS: O2SAT 99
[2021-06-07] MEDS ORDERED: ONDANSETRON 4 MG/2 ML VIAL IV PRN (05:05)
[2021-06-07 05:33] VITALS: BMI 22.7
[2021-06-07] MEDS ORDERED: MORPHINE 2 MG/ML SYR IV ONE (05:35)
[2021-06-07] MEDS: NA CHLORIDE 0.9% 1,000 ML IV SCH ×3 (05:53→22:04)
[2021-06-07 05:58] LABS: Absolute Lymphocytes (CBC) 1.5 K/uL (0.7-4.9); Basophils % 0.9 % (0-1.3); Lymphocytes % 25.8 % (15.3-44.8); MPV 8.2 fL (7.6-11.3); RBC Red Blood Cell Count 3.68 M/uL (3.86-4.86)
[2021-06-07 06:18] LABS: ALT/SGPT 19 U/L (12-78); AST/SGOT 14 U/L (15-37); Albumin 3.6 g/dL (3.4-5.0); Alkaline Phosphatase 85 U/L (45-117); BUN Blood Urea Nitrogen 14 mg/dL (7-18); Bicarbonate 27 mmol/L (21-32); Bilirubin Total 0.5 mg/dL (0.2-1.0); Glucose Level 91 mg/dL (74-106); HDL Cholesterol 50 mg/dL (40-60); LDL Cholesterol, Calculated 97 (<130); Potassium 3.4 mmol/L (3.5-5.1); Sodium Level 142 mmol/L (136-145); Troponin I < 0.02 ng/mL (0.0-0.045)
--- NOTE | 2021-06-07 08:11 | RAD REPORT ---
EXAM DESCRIPTION: RAD - Chest Single View - 06/06/2021 10:42 pm CLINICAL HISTORY: Chest pain COMPARISON: None. TECHNIQUE: AP portable chest image was obtained . FINDINGS: Lungs are clear. Heart and vasculature are normal. No measurable pleural effusion and no p neumothorax. No gross bony abnormality seen. IMPRESSION: No acute cardiopulmonary process.
--- NOTE | 2021-06-07 08:18 | RAD REPORT ---
EXAM DESCRIPTION: CT - Chest For Pe Angio - 06/07/2021 7:58 am CLINICAL HISTORY: Chest pain and syncope, rule out PE COMPARISON: Same date noncontrast chest CT TECHNIQUE: Dynamically enhanced axial 3 mm thick images of the chest were obtained during administra tion of 150 mL Isovue 370 IV contrast. Coronal and oblique reconstruction images were generated and r eviewed. Exam utilizes a protocol for optimal evaluation of pulmonary arterial tree. All CT scans are performed using dose optimization technique as appropriate and may include automated exposure control or mA/KV adjustment according to patient size. FINDINGS: Pulmonary arteries are normal. No emboli or other suspicious finding. No acute or signific ant aorta findings. Re- demonstrated mild dependent ground-glass airspace disease in the right lower lobe. No pleural thi ckening or pleural effusion. No pneumothorax. No abnormal mediastinal or hilar masses or lymphadenopathy seen. No chest wall mass or abnormal axill celina lymphadenopathy. Remote T12 compression fracture. Coronary artery calcifications. Small pericardial effusion. . IMPRESSION: Negative for pulmonary embolism. Redemonstrated mild ground-glass airspace disease in the right lower lobe which may reflect mild infe ction, inflammation, and/or aspiration.
--- NOTE | 2021-06-07 08:50 | RAD REPORT ---
EXAM DESCRIPTION: US - Extrem Venous W Compress [place] - 06/07/2021 8:39 am CLINICAL HISTORY: Pain, rule out DVT COMPARISON: None. TECHNIQUE: Real-time sonographic evaluation of the bilateral lower extremity deep venous systems was performed. FINDINGS: Normal compressibility, flow augmentation, phasic flow and spontaneous flow is identified in both the left and right lower extremity deep venous systems. No intraluminal filling defects seen. IMPRESSION: No DVT in either lower extremity.
[2021-06-07] MEDS ORDERED: RISPERIDONE 0.25 MG TABLET PO SCH (09:00)
[2021-06-07] MEDS: ESCITALOPRAM 20 MG TAB PO SCH (09:43)
[2021-06-07] MEDS: LOSARTAN POTASSIUM 50 MG TABLET PO SCH (09:43)
[2021-06-07] MEDS: PREGABALIN 150 MG CAP PO SCH (09:43)
[2021-06-07] MEDS: PANTOPRAZOLE 40MG TABLET PO SCH ×2 (09:43→22:04)
[2021-06-07] MEDS: ASPIRIN EC 81 MG TAB PO SCH (09:43)
[2021-06-07] MEDS: ENOXAPARIN 30 MG/0.3 ML SQ SCH (09:43)
[2021-06-07] MEDS: ISOSORBIDE MONO SR 60 MG TAB PO SCH (09:44)
[2021-06-07] MEDS: KCL 20 MEQ/100 mL IVPB 20 MEQ/100 ML BAG IV SCH ×2 (09:44→17:15)
--- NOTE | 2021-06-07 12:19 | RAD REPORT ---
EXAM DESCRIPTION: CT - Thorax Wo Con - 06/07/2021 6:32 am CLINICAL HISTORY: 80 years Female PAIN COMPARISON: None. TECHNIQUE: Contiguous axial images obtained through the chest without IV contrast. Reformatted image s obtained. This exam was performed according to our department optimization program which includes automated exp osure control, adjustment of the mA and/or kv according to patient size and/or use of iterative recon struction technique. FINDINGS: Small low-density lesion in the left lobe of the liver not completely characterized but th at likely represents a small cyst. Coronary artery calcifications. Mitral annular calcifications. The mediastinum appears unremarkable. Atherosclerotic calcifications in the thoracic aorta. Mild scarring/atelectasis in the lungs. Mild groundglass opacity in the posterior mid right lung whic h is nonspecific. Changes from an infectious/inflammatory process are not completely excluded. No den se consolidating infiltrates or pleural effusions. No pneumothorax. Degenerative changes in the spine. Mild chronic appearing T12 compression fracture deformity. Mild irregularity and sclerosis in the manubrium likely from an old fracture. Clinical correlation is also recommended. IMPRESSION: 1. Mild groundglass opacity in the posterior mid right lung which is nonspecific. Jacques ges from an infectious/inflammatory process are not completely excluded. 2. Mild irregularity and sclerosis in the manubrium likely from an old fracture. Clinical correlati on is also recommended. Electronically signed by: Jabier Barnes MD 06/07/2021 12:38 AM CDT Due to temporary technical issues with the PACS/Fluency reporting system, reports are being signed by the in house radiologist without review as a courtesy to ensure prompt reporting. The interpreting r adiologist is fully responsible for the content of the report.
--- NOTE | 2021-06-07 12:22 | RAD REPORT ---
EXAM DESCRIPTION: CT - Head Brain Wo Cont - 06/07/2021 6:33 am CLINICAL HISTORY: SYNCOPE TECHNIQUE: Contiguous axial CT images obtained through the brain without IV contrast. Coronal and sa gittal reformatted images were provided. This exam was performed according to our departmental dose-optimization program, which includes autom ated exposure control, adjustment of the mA and/or kV according to patient size and/or use of iterati ve reconstruction technique. COMPARISON: 05/31/2021 FINDINGS: Brain: Mild cerebral atrophy and minimal bilateral periventricular and subcortical white m atter low-attenuation most compatible with chronic microvascular angiopathy without significant inter davis change. No focal mass effect. Montgomery-white matter differentiation is within normal limits. No hemor rhage. Ventricles: No ventriculomegaly or midline shift. Extra-axial spaces: No extra-axial collection or hemorrhage. Paranasal sinuses and mastoid air cells: Well-aerated Vessels: There is atherosclerotic disease of the internal carotid and vertebral arteries bilaterally. Bones: Unremarkable Soft tissues: Unremarkable IMPRESSION: 1. No acute hemorrhage, focal mass or large territory infarction. 2. Other findings as above. Electronically signed by: Milla Paez MD 06/07/2021 12:28 AM CDT Due to temporary technical issues with the PACS/Fluency reporting system, reports are being signed by the in house radiologist without review as a courtesy to ensure prompt reporting. The interpreting r adiologist is fully responsible for the content of the report.
--- NOTE | 2021-06-07 13:00 | EKG ---
Test Date: 2021-06-06 Test Time: 22:24:42 [employer] Contractor: ALF MEASUREMENT RESULTS: Intervals: Rate: 78 AL: 152 QRSD: 132 QT: 460 QTc: 524 [place]: P: 81 AL: 152 QRS: -12 T: 55 INTERPRETIVE STATEMENTS: Sinus rhythm with occasional premature ventricular complexes Right bundle branch block Abnormal ECG Compared to ECG 12/22/2002 00:10:00 Ventricular premature complex(es) now present Right bundle-branch block now present Myocardial infarct finding no longer present Electronically Signed On 06-07-21 12:59:05 CDT by Sunny Cast
[2021-06-07 13:17] LABS: Urine Appearance CLEAR (Clear); Urine Bilirubin NEGATIVE (Negative); Urine Blood NEGATIVE (Negative); Urine Color YELLOW (Yellow); Urine Glucose NEGATIVE (Negative); Urine Protein 2+ (Negative); Urine Specific Gravity >=1.030 (1.005-1.030); Urine Urobilinogen 0.2 mg/dL (0.2-1.0)
--- NOTE | 2021-06-07 13:24 | RAD REPORT ---
EXAM DESCRIPTION: USCarotid Artery Bilateral06/07/2021 8:33 am CLINICAL HISTORY: syncope COMPARISON: None FINDINGS: The examination is somewhat limited secondary to patient motion. The velocity of the right internal carotid artery equals 140 cm/sec. The right ICA/CCA ratio 2.2. The elevation of the right internal carotid artery probably secondary to it being tortuous rather than s ignificant The velocity of the left internal carotid artery equals 108 cm/sec. The left ICA/CCA ratio 1.3 Mild plaque is present within the internal carotid arteries. Appears to be moderate to marked plaque within the right external carotid artery. The vertebral arteries demonstrate antegrade flow IMPRESSION: Mild plaque within the internal carotid arteries. The elevation of the right internal carotid artery probably secondary to it being tortuous rather tahir n a significant stenosis. It is recommended that patient have follow-up carotid ultrasound in 6 month s for re-evaluation NASCET criteria used. Mild 0-49% stenosis Moderate 50-69% stenosis Severe 70-99% stenosis
[2021-06-07 13:33] LABS: Urine Microscopic Reflex ORDER UMIC
--- NOTE | 2021-06-07 14:05 | ECHO ---
HEIGHT: 4 ft 11 in WEIGHT: 112 lb 8 oz DATE OF STUDY: 06/07/[address]: Fortino Greer NP 2-DIMENSIONAL: YES M.MODE: YES DOPPLER: YES COLOR FLOW: YES TDS: NO PORTABLE: NO DEFINITY: NO BUBBLE STUDY: NO DIAGNOSIS: CHEST PAIN, SYNCOPE CARDIAC HISTORY: CATHERIZATION: NO SURGERY: NO PROSTHETIC VALVE: NO PACEMAKER: NO MEASUREMENTS (cm) DIASTOLIC (NORMALS) SYSTOLIC (NORMALS) IVSd 1.1 (0.6-1.2) LA Diam 2.7 (1.9-4.0) LVEF 57% LVIDd 3.6 (3.5-5.7) LVIDs 2.6 (2.0-3.5) %FS 29% LVPWd 1.2 (0.6-1.2) Ao Diam 2.5 (2.0-3.7) 2 DIMENSIONAL ASSESSMENT: RIGHT ATRIUM: NORMAL LEFT ATRIUM: NORMAL RIGHT VENTRICLE: NORMAL LEFT VENTRICLE: NORMAL TRICUSPID VALVE: NORMAL MITRAL VALVE: NORMAL PULMONIC VALVE: NORMAL AORTIC VALVE: NORMAL PERICARDIAL EFFUSION: NONE AORTIC ROOT: NORMAL LEFT VENTRICULAR WALL MOTION: NORMAL DOPPLER/COLOR FLOW: NORMAL COMMENTS: NORMAL 2D ECHOCARDIOGRAM WITH DOPPLER. NO WALL MOTION ABNORMALITY. NO EFFUSION. TECHNOLOGIST: Don BELTRAN
[2021-06-07 14:08] LABS: Urine Bacteria 20-50 /HPF (<20); Urine RBC <5 /HPF (NONE SEEN)
[2021-06-07 14:09] LABS: Urine Urothelial Cells <5 /HPF (NONE SEEN)
[2021-06-07] MEDS: ENSURE ENLIVE 237 ML CAN PO SCH (21:00)
[2021-06-07] MEDS ORDERED: ATORVASTATIN 40 MG TAB PO SCH (21:00)
[2021-06-07] MEDS: RISPERIDONE 0.25 MG TABLET PO SCH (22:04)
[2021-06-08 04:18] LABS: Absolute Lymphocytes (CBC) 1.4 K/uL (0.7-4.9); Basophils % 0.4 % (0-1.3); Lymphocytes % 22.6 % (15.3-44.8); MPV 8.8 fL (7.6-11.3); RBC Red Blood Cell Count 3.32 M/uL (3.86-4.86)
[2021-06-08 04:39] LABS: Albumin 3.1 g/dL (3.4-5.0); Bilirubin Total 0.3 mg/dL (0.2-1.0); Magnesium 1.9 mg/dL (1.8-2.4); Potassium 3.9 mmol/L (3.5-5.1); Protein, Total 6.1 g/dL (6.4-8.2)
--- NOTE | 2021-06-08 06:05 | PN ---
Date of Progress Note: 06/08/2021 Ms. Cerrato had come into the hospital with atypical chest pain. She does have a history of CVA, C HF, hypertension. Her EKG was unremarkable except for PVCs. Her chest x-ray was negative. Her trop onin and BNPs were negative. Echocardiogram which was done yesterday was normal. Carotid Doppler wh ich showed some mild carotid disease with tortuosity, but no focal stenosis. Her last vital signs we re stable. She is asymptomatic. No further chest pain. I am comfortable with her going home whenev er it is okay with admitting physician. We will see her as an outpatient and recommend a Lexiscan in the near future. YOLI/SUSAN Voice ID: [id number] Report ID: [id number]
[2021-06-08] MEDS ORDERED: POTASSIUM CL SA 10 MEQ TAB PO ONE (09:00)
[2021-06-08] MEDS: ISOSORBIDE MONO SR 60 MG TAB PO SCH (09:01)
[2021-06-08] MEDS: PREGABALIN 150 MG CAP PO SCH (09:01)
[2021-06-08] MEDS: RISPERIDONE 0.25 MG TABLET PO SCH (09:02)
[2021-06-08] MEDS: ASPIRIN EC 81 MG TAB PO SCH (09:02)
[2021-06-08] MEDS: PANTOPRAZOLE 40MG TABLET PO SCH (09:02)
[2021-06-08] MEDS: ENOXAPARIN 30 MG/0.3 ML SQ SCH (09:02)
[2021-06-08] MEDS: ESCITALOPRAM 20 MG TAB PO SCH (09:02)
[2021-06-08] MEDS: LOSARTAN POTASSIUM 50 MG TABLET PO SCH (09:02)
[2021-06-08] MEDS: ENSURE ENLIVE 237 ML CAN PO SCH (09:03)
[2021-06-08 11:58] VITALS: BP 147/53; TEMP 97
[2021-06-08] MEDS: NA CHLORIDE 0.9% 1,000 ML IV SCH (11:59)
--- NOTE | 2021-06-08 17:36 | P.DS ---
Admission Date: 06/07/21 Discharge Date: 06/08/21 Primary Care Provider: Out of town Disposition: ROUTINE DISCHARGE Discharge Condition: GOOD Reason for Admission: Chest pain, syncope Consultations: Cardiology - Dr. Cast Psych - Dr. Larsen Procedures: CXR (06/06): FINDINGS: Lungs are clear. Heart and vasculature are normal. No measurable pleural effusion and no pneumothorax. No gross bony abnormality seen. IMPRESSION: No acute cardiopulmonary process. CT Chest (06/06): FINDINGS: Small low-density lesion in the left lobe of the liver not completely characterized but that likely represents a small cyst. Coronary artery calcifications. Mitral annular calcifications. The mediastinum appears unremarkable. Atherosclerotic calcifications in the thoracic aorta. Mild scarring/atelectasis in the lungs. Mild groundglass opacity in the posterior mid right lung which is nonspecific. Changes from an infectious/inflammatory process are not completely excluded. No dense consolidating infiltrates or pleural effusions. No pneumothorax. Degenerative changes in the spine. Mild chronic appearing T12 compression fracture deformity. Mild irregularity and sclerosis in the manubrium likely from an old fracture. Clinical correlation is also recommended. IMPRESSION: 1. Mild groundglass opacity in the posterior mid right lung which is nonspecific. Changes from an infectious/inflammatory process are not completely excluded. 2. Mild irregularity and sclerosis in the manubrium likely from an old fracture. Clinical correlation is also recommended. CT Head (06/06): FINDINGS: Brain: Mild cerebral atrophy and minimal bilateral periventricular and subcortical white matter low-attenuation most compatible with chronic microvascular angiopathy without significant interval change. No focal mass effect. Montgomery-white matter differentiation is within normal limits. No hemorrhage. Ventricles: No ventriculomegaly or midline shift. Extra-axial spaces: No extra-axial collection or hemorrhage. Paranasal sinuses and mastoid air cells: Well-aerated Vessels: There is atherosclerotic disease of the internal carotid and vertebral arteries bilaterally. Bones: Unremarkable Soft tissues: Unremarkable IMPRESSION: 1. No acute hemorrhage, focal mass or large territory infarction. 2. Other findings as above. CTA chest (06/07): FINDINGS: Pulmonary arteries are normal. No emboli or other suspicious finding. No acute or significant aorta findings. Re- demonstrated mild dependent ground-glass airspace disease in the right lower lobe. No pleural thickening or pleural effusion. No pneumothorax. No abnormal mediastinal or hilar masses or lymphadenopathy seen. No chest wall mass or abnormal axillary lymphadenopathy. Remote T12 compression fracture. Coronary artery calcifications. Small pericardial effusion. . IMPRESSION: Negative for pulmonary embolism. Redemonstrated mild ground-glass airspace disease in the right lower lobe which may reflect mild infection, inflammation, and/or aspiration. Venous doppler (06/07): FINDINGS: Normal compressibility, flow augmentation, phasic flow and spontaneous flow is identified in both the left and right lower extremity deep venous systems. No intraluminal filling defects seen. IMPRESSION: No DVT in either lower extremity. Carotid U/S (06/07): FINDINGS: The examination is somewhat limited secondary to patient motion. The velocity of the right internal carotid artery equals 140 cm/sec. The right ICA/CCA ratio 2.2. The elevation of the right internal carotid artery probably secondary to it being tortuous rather than significant The velocity of the left internal carotid artery equals 108 cm/sec. The left ICA/CCA ratio 1.3 Mild plaque is present within the internal carotid arteries. Appears to be moderate to marked plaque within the right external carotid artery. The vertebral arteries demonstrate antegrade flow IMPRESSION: Mild plaque within the internal carotid arteries. The elevation of the right internal carotid artery probably secondary to it being tortuous rather than a significant stenosis. It is recommended that patient have follow-up carotid ultrasound in 6 months for re-evaluation Echocardiogram (06/07): normal 2d echo with doppler, no wall motion abnormality. no effusion Problem List Chest pain/syncope with history of CAD Hypertension Renal insufficiency,CKD 2 Anxiety/depression hallucinations Brief History of Present Illness: 80-year-old female with history of hypertension, CAD, anxiety/depression presents emergency department for chest pain/syncope. Patient reports that she has at home when she bent over to try to tie her shoes and got a sudden pain across her chest radiating to the left arm with associated dizziness. Patient reports that she then fell to the ground, patient unsure of why or how exactly she fell, does not recall all events. Patient also reports that approximately a week ago she had another fall while at the grocery store where she did not recall surrounding events. Patient denies previous episodes similar to this. Patient evaluated in the emergency department, labs significant for hemoglobin 10.6 hematocrit 31.4 chloride 110 creatinine 1.[address] head without any acute findings , CT chest not contrast negative for any acute findings. When I saw the patient in the ER she is awake, alert, oriented x3. Patient is very poor historian, reports she had a heart catheterization a number of years ago. D-dimer ordered, orthostatics vital signs ordered to further evaluate cause of syncope/chest pain. Patient chest pain free at this time, vital signs stable. Hospital Course: Patient underwent extensive cardiac and neuro workup with no significant findings. She remained asymptomatic, and was feeling well. Daughter reported 6- 12 month history of hallucinations, paranoia, delusions. Psych was consulted, recommended increasing risperdal to BID. Patient is to follow up with her psychiatrist and PCP. Follow up with Cardiology, recommended lexiscan in near future. Vital Signs/Physical Exam: Physical Exam General: Alert, NAD, AAOx3, pleasant HEENT: Mucous membr. moist/pink, Sclerae nonicteric Respiratory: Clear to auscultation bilaterally, Normal air movement Cardiovascular: Regular rate/rhythm, Normal S1 S2 Gastrointestinal: soft, nontender, nondistended Musculoskeletal: No tenderness/joint swelling Integumentary: No rashes Temp Pulse Resp BP Pulse Ox 97 F 66 18 147/53 H 99 06/08/21 11:54 06/08/21 11:54 06/08/21 11:54 06/08/21 11:54 06/08/21 11:54 Laboratory Data at Discharge: WBC 6.10 K/uL (4.3-10.9) 06/08/21 03:34 Hgb 10.0 g/dL (12.0-15.0) L 06/08/21 03:34 Hct 30.0 % (36.0-45.0) L 06/08/21 03:34 Plt Count 288 K/uL (152-406) 06/08/21 03:34 PT 12.2 SECONDS (9.5-12.5) 06/06/21 22:25 INR 1.06 06/06/21 22:25 Sodium 142 mmol/L (136-145) 06/08/21 03:34 Potassium 3.9 mmol/L (3.5-5.1) 06/08/21 03:34 BUN 17 mg/dL (7-18) 06/08/21 03:34 Creatinine 1.14 mg/dL (0.55-1.3) 06/08/21 03:34 Glucose 79 mg/dL (74-106) 06/08/21 03:34 Magnesium 1.9 mg/dL (1.8-2.4) 06/08/21 03:34 Total Bilirubin 0.3 mg/dL (0.2-1.0) 06/08/21 03:34 AST 11 U/L (15-37) L 06/08/21 03:34 ALT 17 U/L (12-78) 06/08/21 03:34 Alkaline Phosphatase 83 U/L (45-117) 06/08/21 03:34 Troponin I 0.02 ng/mL (0.0-0.045) 06/07/21 12:15 Triglycerides 104 mg/dL (<150) 06/07/21 05:43 Cholesterol 168 mg/dL (<200) 06/07/21 05:43 HDL Cholesterol 50 mg/dL (40-60) 06/07/21 05:43 Cholesterol/HDL Ratio 3.36 06/07/21 05:43 Home Medications: Escitalopram [Lexapro*] 20 mg PO DAILY 06/07/21 Isosorbide Mononitrate [Isosorbide Mononitrate ER] 60 mg PO DAILY 06/07/21 Losartan Potassium 25 mg PO DAILY 06/07/21 Montelukast [Singulair*] 10 mg PO DAILY 06/07/21 Pantoprazole [Protonix Tab*] 40 mg PO DAILY 06/07/21 Pregabalin [Lyrica] 150 mg PO DAILY 06/07/21 Trazodone [Desyrel*] 100 mg PO BEDTIME 06/07/21 buPROPion HCL [Bupropion Xl] 300 mg PO DAILY 06/07/21 clonazePAM [Clonazepam] 0.5 mg PO BEDTIME 06/07/21 Atorvastatin Calcium [Lipitor] 40 mg PO BEDTIME #0 tab 06/08/21 risperiDONE [Risperdal 0.25 MG TAB*] 0.5 mg PO BID 30 Days #60 tab 06/08/21 New Medications: Atorvastatin Calcium [Lipitor] 40 mg PO BEDTIME #0 tab risperiDONE [Risperdal 0.25 MG TAB*] 0.5 mg PO BID 30 Days #60 tab Physician Discharge Instructions: your chest pain and syncopal episode were evaluated and echocardiogram, carotid ultrasound, CT brain, were all negative. Your ekg, cardiac enzymes and heart monitoring were also normal and did not indicate heart attack or irregular rhythm. You did not have any chest pain or syncope while here. You were evaluated by Dr. Garcia for your hallucinations and recommend increasing risperdal to twice a day. Follow up with your PCP in 3-5 days, and psychiatrist in the next 2-3 weeks. Diet: AHA Activity: Fall precautions Followup: Jose Larsen [ACTIVE - CAN ADMIT] - Unknown,U [Primary Care Provider] - Time spent managing pt's care (in minutes): 45
--- NOTE | 2021-06-09 07:48 | EKG ---
Test Date: 2021-06-07 Test Time: 05:37:03 Presser Automatic: RT-O MEASUREMENT RESULTS: Intervals: Rate: 79 CA: 156 QRSD: 120 QT: 434 QTc: 497 Maupin: P: 76 CA: 156 QRS: -8 T: 50 INTERPRETIVE STATEMENTS: Sinus rhythm with occasional premature ventricular complexes Right bundle branch block Abnormal ECG Compared to ECG 06/06/2021 22:24:42 No significant changes Electronically Signed On 06-09-21 07:43:31 CDT by Sunny Cast
== END 2021-06-08 14:27 | disposition home or self-care (01) ==
LOC: ER 22:19 → ERHOLD 06-07 03:06 → 4TH 06-07 04:27
PROVIDERS: ADMIT Hospitalist; ATTEND Hospitalist
DX: R07.89 Other chest pain (principal); R55 Syncope and collapse; I25.10 Atherosclerotic heart disease of native coronary artery without angina pectoris; R44.3 Hallucinations, unspecified; F41.9 Anxiety disorder, unspecified; F32.9 Major depressive disorder, single episode, unspecified; I65.23 Occlusion and stenosis of bilateral carotid arteries; I13.0 Hypertensive heart and chronic kidney disease with heart failure and stage 1 through stage 4 chronic kidney disease, or unspecified chronic kidney disease; I50.9 Heart failure, unspecified; N18.2 Chronic kidney disease, stage 2 (mild); E11.22 Type 2 diabetes mellitus with diabetic chronic kidney disease; I49.3 Ventricular premature depolarization; Z20.822 Contact with and (suspected) exposure to COVID-19; Z86.73 Personal history of transient ischemic attack (TIA), and cerebral infarction without residual deficits; Z90.49 Acquired absence of other specified parts of digestive tract; Z90.710 Acquired absence of both cervix and uterus; Z80.9 Family history of malignant neoplasm, unspecified
CPT/HCPCS: 93005 ×2; 93306; 87088; 85025 ×3; 87086; 80048; 36415 ×2; 83735 ×3; 85610; 80061; 85379; 80076; 84443; 87077; 87186; 81003; 84484 ×3; 84439; 80053 ×2; 83880; 86140; 70450; 71250; 71275; 71045; 93880; 93970; 99285; U0003; Q9967; J3480 ×2; J1650 ×2; J7030 ×3; G0378 ×3; 81015; J2270

== ENCOUNTER 2021-06-11 19:24 | Emergency (ER) | payer OTHER ==
--- NOTE | 2021-06-11 20:35 | RAD REPORT ---
EXAM DESCRIPTION: CT - Head Brain Wo Cont - 06/11/2021 8:27 pm CLINICAL HISTORY: Alteration of awareness/confusion COMPARISON: June 07, 2021 TECHNIQUE: Computed axial tomography of the head was obtained. IV contrast was not requested. All CT scans are performed using dose optimization technique as appropriate and may include automated exposure control or mA/KV adjustment according to patient size. FINDINGS: An intracranial bleed is not seen . The ventricles are normal in caliber. No extra-axial fluid collection is noted. Fluid within the sinuses/ mastoids is not seen. IMPRESSION: No acute intracranial abnormality is seen. If patient's symptoms persist MRI of the bra in would be recommended.
[2021-06-11 20:56] LABS: Absolute Lymphocytes (CBC) 1.2 K/uL (0.7-4.9); Basophils % 0.5 % (0-1.3); Hematocrit 32.3 % (36.0-45.0); Lymphocytes % 13.4 % (15.3-44.8); MPV 8.5 fL (7.6-11.3)
[2021-06-11 21:05] LABS: Protime INR 1.1
[2021-06-11 21:23] LABS: ALT/SGPT 18 U/L (12-78); AST/SGOT 15 U/L (15-37); Albumin 3.5 g/dL (3.4-5.0); Alkaline Phosphatase 94 U/L (45-117); BUN Blood Urea Nitrogen 21 mg/dL (7-18); Bicarbonate 26 mmol/L (21-32); Bilirubin Direct < 0.1 mg/dL (0-0.2); Bilirubin Total 0.3 mg/dL (0.2-1.0); Glucose Level 146 mg/dL (74-106); Potassium 4.2 mmol/L (3.5-5.1); Protein, Total 7.1 g/dL (6.4-8.2); Sodium Level 139 mmol/L (136-145)
[2021-06-11 21:27] LABS: Urine Blood Trace-intact (Negative); Urine Glucose Negative (Negative); Urine Protein 2+ (Negative); Urine pH 6.5 (5.0-7.0)
[2021-06-11 21:43] LABS: Urine RBC <5 /HPF (NONE SEEN)
[2021-06-11 21:44] LABS: Urine Bacteria >50 /HPF (<20)
[2021-06-11] MEDS ORDERED: CEFTRIAXONE/SWI 1gm 1 GM/10 ML SYR ONE (23:23)
--- NOTE | 2021-06-11 23:34 | ER ---
Nurse's Notes [facility] Name: Madison Cerrato Age: 80 yrs Sex: Female : 1940 Arrival Date: 06/11/2021 Time: 19:26 Bed 6 Private MD: Diagnosis: UTI/ Urinary tract infection, site not specified Presentation: 06/11 19:41 Chief complaint: Patient states: Was prescribed Risperidone 2x a day by the [facility] psychiatrist. SInce she started taking it since yesterday, she's been weak, sleeps all day, walks slow, she's just not herself. She said she feels dizzy and she said she feels like she was going to pass out. She also said she saw blood in her stool also. Coronavirus screen: Client denies travel out of the [place] in the last 14 days. At this time, the client does not indicate any symptoms associated with coronavirus-19. Ebola Screen: Patient negative for fever greater than or equal to 101.5 degrees Fahrenheit, and additional compatible Ebola Virus Disease symptoms Patient denies exposure to infectious person. Patient denies travel to an Ebola-affected area in the 21 days before illness onset. No symptoms or risks identified at this time. Initial Sepsis Screen: Does the patient meet any 2 criteria? No. Patient's initial sepsis screen is negative. Does the patient have a suspected source of infection? No. Patient's initial sepsis screen is negative. Risk Assessment: Do you want to hurt yourself or someone else? Patient reports no desire to harm self or others. Onset of symptoms was June 11, 2021. 19:41 Method Of Arrival: Wheelchair [facility] 19:41 Acuity: JOHN 3 ca1 Historical: - Allergies: 19:44 No Known Allergies; ca1 - PMHx: 19:44 Congestive heart failure; CVA; diabetes mellitus; Hypertensive disorder; kidney disease;ca1 - Immunization history:: Client reports receiving the 2nd dose of the Covid vaccine, Client reports receiving the 1st dose of the Covid vaccine, Pneumococcal vaccine is up to date, Flu vaccine is up to date. - Social history:: Smoking status: Patient denies any tobacco usage or history of. Screenin:14 Abuse screen: Denies threats or abuse. Nutritional screening: No deficits noted. ea Tuberculosis screening: No symptoms or risk factors identified. Fall Risk IV access (20 points). Assessment: 20:30 General: Appears in no apparent distress. Behavior is calm, cooperative, appropriate ea for age. Pain: Denies pain. Neuro: Level of Consciousness is awake, alert, obeys commands, Oriented to person. Respiratory: Airway is patent Respiratory effort is even, unlabored, Respiratory pattern is regular, symmetrical. Derm: Skin is pink, warm \T\ dry. 22:54 Reassessment: Patient and/or family updated on plan of care and expected duration. Pain ea level reassessed. Patient is alert, oriented x 3, equal unlabored respirations, skin warm/dry/pink. 23:26 Reassessment: Patient and/or family updated on plan of care and expected duration. Pain ea level reassessed. Patient is alert, oriented x 3, equal unlabored respirations, skin warm/dry/pink. 06/12 00:12 Reassessment: Patient and/or family updated on plan of care and expected duration. Pain ea level reassessed. Patient is alert, oriented x 3, equal unlabored respirations, skin warm/dry/pink. Discharge instruction given to patient and patient's family verbalized the understanding of instruction. Pt left ED via wheelchair accompanied by family. Pt tolerating well. Vital Signs: 07 19:41 BP 151 / 72; Pulse 81; Resp 17 S; Temp 97.8(TE); Pulse Ox 99% on R/A; Weight 65.77 kg ca1 (R); Height 5 ft. 0 in. (152.40 cm) (R); 22:30 BP 162 / 62; Pulse 72; Resp 18; Pulse Ox 100% ; ea 23:30 BP 167 / 78; Pulse 72; Resp 18; Pulse Ox 100% ; ea 19:41 Body Mass Index 28.32 (65.77 kg, 152.40 cm) ca1 ED Course: 19:26 Patient arrived in ED. am4 19:44 Triage completed. ca1 19:44 Arm band placed on right wrist. ca1 19:54 Keegan Osman NP is PHCP. pm1 19:54 Primitivo Garcia MD is Attending Physician. pm1 20:14 Rachael Phoenix RN is Primary Nurse. ea 20:27 CT Head Brain wo Cont In Process Unspecified. EDMS 20:30 Inserted saline lock: 20 gauge in right antecubital area, using aseptic technique. ea Blood collected. 20:32 Patient has correct armband on for positive identification. Bed in low position. Call ea light in reach. Side rails up X2. 21:30 Urine Microscopic Only Sent. ds4 23:56 No provider procedures requiring assistance completed. IV discontinued, intact, ea bleeding controlled, No redness/swelling at site. Pressure dressing applied. Administered Medications: 23:16 Drug: Rocephin (cefTRIAXone) 1 grams Route: IV; Rate: calculated rate; Site: right ea antecubital; 23:30 Follow up: Response: No adverse reaction; IV Status: Completed infusion ea Outcome: 23:34 Discharge ordered by MD. pm1 07/12 00:12 Discharged to home via wheelchair, with family. ea Condition: stable Discharge instructions given to family, Instructed on discharge instructions, follow up and referral plans. medication usage, Demonstrated understanding of instructions, follow-up care, medications, Prescriptions given X 1. 00:13 Patient left the ED. ea Signatures: Dispatcher [employer] EDMS Maxim Desouza ds4 Keegan Osman, EXTRUDER OPERATOR HELPER EXTRUDER OPERATOR HELPER pm1 Rachael Phoenix, RN Blanquita Shields ea, RN RN ca1 Martinez, Ashley am4
--- NOTE | 2021-06-11 23:34 | EDPHYS ---
Physician Documentation [facility] Name: Madison Cerrato Age: 80 yrs Sex: Female : 1940 Arrival Date: 06/11/2021 Time: 19:26 Bed 6 Private MD: ED Physician Primitivo Garcia HPI: 06/11 20:19 This 80 yrs old Female presents to ER via Wheelchair with complaints of pm1 General Weakness. 20:19 The patient presents to the emergency department with weakness of the entire body, pm1 generalized weakness. 20:19 Onset: The symptoms/episode began/occurred yesterday, last night. Context: occurred at pm1 home. Associated signs and symptoms: Pertinent negatives: fever, headache, nausea, pain. Patient's baseline: Patient with history of paranoia and hallucinations for years. Patient recently started on risperidone by psychiatrist. Patient has taken two doses. Since taking the risperidone she has been sleeping all day. Current symptoms: Currently, the patient is not experiencing any symptoms. The patient has experienced similar episodes in the past, several times, today's symptoms are similar, to previous UTI. The patient has not recently seen a physician, a psychiatrist. Historical: - Allergies: 19:44 No Known Allergies; ca1 - PMHx: 19:44 Congestive heart failure; CVA; diabetes mellitus; Hypertensive disorder; kidney disease;ca1 - Immunization history:: Client reports receiving the 2nd dose of the Covid vaccine, Client reports receiving the 1st dose of the Covid vaccine, Pneumococcal vaccine is up to date, Flu vaccine is up to date. - Social history:: Smoking status: Patient denies any tobacco usage or history of. ROS: 20:19 Constitutional: Negative for fever, chills, and weight loss, Eyes: Negative for injury, pm1 pain, redness, and discharge, ENT: Negative for injury, pain, and discharge, Neck: Negative for injury, pain, and swelling, Cardiovascular: Negative for chest pain, palpitations, and edema, Respiratory: Negative for shortness of breath, cough, wheezing, and pleuritic chest pain, Abdomen/GI: Negative for abdominal pain, nausea, vomiting, diarrhea, and constipation, Back: Negative for injury and pain, MS/Extremity: Negative for injury and deformity, Skin: Negative for injury, rash, and discoloration. 20:19 Neuro: Positive for Generalized weakness. 20:19 All other systems are negative. 22:52 : Positive for burning with urination. pm1 Exam: 20:19 Constitutional: This is a well developed, well nourished patient who is awake, alert, pm1 and in no acute distress. Head/Face: Normocephalic, atraumatic. Cardiovascular: Regular rate and rhythm with a normal S1 and S2. No gallops, murmurs, or rubs. Normal PMI, no JVD. No pulse deficits. Respiratory: Lungs have equal breath sounds bilaterally, clear to auscultation and percussion. No rales, rhonchi or wheezes noted. No increased work of breathing, no retractions or nasal flaring. 20:19 Back: No spinal tenderness. No costovertebral tenderness. Full range of motion. Skin: Warm, dry with normal turgor. Normal color with no rashes, no lesions, and no evidence of cellulitis. MS/ Extremity: Pulses equal, no cyanosis. Neurovascular intact. Full, normal range of motion. 20:19 Eyes: Exam is negative for acute changes, Extraocular movements: intact throughout, Conjunctiva: no acute changes, no injection. 20:19 ENT: Mouth: Lips: normal, Oral mucosa: normal, pink and intact, moist. 20:19 Chest/axilla: Exam negative for acute changes, Inspection: normal, Palpation: no acute changes. 20:19 Abdomen/GI: Inspection: abdomen appears normal, Palpation: abdomen is soft and non-tender, in all quadrants. 20:19 Neuro: Exam negative for acute changes, Orientation: is normal, Mentation: is normal, Motor: is normal, moves all fours. Vital Signs: 19:41 BP 151 / 72; Pulse 81; Resp 17 S; Temp 97.8(TE); Pulse Ox 99% on R/A; Weight 65.77 kg ca1 (R); Height 5 ft. 0 in. (152.40 cm) (R); 22:30 BP 162 / 62; Pulse 72; Resp 18; Pulse Ox 100% ; ea 23:30 BP 167 / 78; Pulse 72; Resp 18; Pulse Ox 100% ; ea 19:41 Body Mass Index 28.32 (65.77 kg, 152.40 cm) ca1 MDM: 20:10 Patient medically screened. pm1 22:52 Data reviewed: vital signs. Data interpreted: Pulse oximetry: on room air is 99 %. pm1 Interpretation: normal. 23:32 Counseling: I had a detailed discussion with the patient and/or guardian regarding: the pm1 historical points, exam findings, and any diagnostic results supporting the discharge/admit diagnosis, lab results, radiology results, the need for outpatient follow up, to return to the emergency department if symptoms worsen or persist or if there are any questions or concerns that arise at home. 06/11 20:12 Order name: CBC with Diff; Complete Time: 21:15 pm1 06/11 20:12 Order name: BMP; Complete Time: 21:29 pm1 06/11 20:12 Order name: LFT's; Complete Time: 21:29 pm1 06/11 20:12 Order name: PT-INR; Complete Time: 21:29 pm1 06/11 20:12 Order name: Urine Microscopic Only; Complete Time: 21:50 pm1 06/11 21:27 Order name: Urine Dipstick-Ancillary; Complete Time: 21:29 EDMS 06/11 20:12 Order name: IV Saline Lock; Complete Time: 21:06 pm1 06/11 20:12 Order name: CT Head Brain wo Cont; Complete Time: 20:39 pm1 06/11 20:12 Order name: EKG; Complete Time: 20:13 pm1 06/11 20:12 Order name: EKG - Nurse/Tech; Complete Time: 21:06 pm1 06/11 20:12 Order name: Urine Dipstick-Ancillary (obtain specimen); Complete Time: 21:30 pm1 06/11 21:45 Order name: Urine Culture EDMS Administered Medications: 23:16 Drug: Rocephin (cefTRIAXone) 1 grams Route: IV; Rate: calculated rate; Site: right ea antecubital; 23:30 Follow up: Response: No adverse reaction; IV Status: Completed infusion ea Disposition: 06/12 06:08 Co-signature as Attending Physician, Primitivo Garcia MD. [email or web address] Disposition Summary: 06/11/21 23:34 Discharge Ordered Location: Home pm1 Problem: new pm1 Symptoms: have improved pm1 Condition: Stable pm1 Diagnosis - UTI/ Urinary tract infection, site not specified pm1 Followup: pm1 - With: Emergency Department - When: As needed - Reason: Worsening of condition Followup: pm1 - With: Private Physician - When: 2 - 3 days - Reason: Recheck today's complaints, Continuance of care, Re-evaluation by your physician Discharge Instructions: - Discharge Summary Sheet pm1 - Urinary Tract Infection, Adult pm1 Forms: - Medication Reconciliation Form pm1 - Thank You Letter pm1 - Antibiotic Education pm1 - Prescription Opioid Use pm1 Prescriptions: - cefpodoxime 200 mg Oral Tablet - take 1 tablet by ORAL route every 12 hours for 10 days with food; 20 tablet; pm1 Refills: 0, Product Selection Permitted Signatures: Dispatcher [employer] EDMS Keegan Osman NP [employer]ELOPER [employer] pm1 Rachael Phoenix RN Blanquita Shields ea, RN RN Primitivo Kruger MD MD 7
[2021-06-12 01:04] VITALS: TEMP 97.8
[2021-06-12 01:07] VITALS: O2SAT 100
[2021-06-12 01:08] VITALS: BP 167/78
--- NOTE | 2021-06-12 16:07 | EKG ---
Test Date: 2021-06-11 Test Time: 21:02:35 Shear Operator Helper: CAROLYNN MEASUREMENT RESULTS: Intervals: Rate: 69 VT: 164 QRSD: 130 QT: 464 QTc: 497 Garibaldi: P: 76 VT: 164 QRS: -2 T: 64 INTERPRETIVE STATEMENTS: Normal sinus rhythm Right bundle branch block Abnormal ECG Compared to ECG 06/07/2021 05:37:03 Ventricular premature complex(es) no longer present Electronically Signed On 06-12-21 16:04:10 CDT by Sunny Cast
== END 2021-06-12 00:13 | disposition home or self-care (01) ==
LOC: ER 19:24
DX: N39.0 Urinary tract infection, site not specified (principal); I10 Essential (primary) hypertension
CPT/HCPCS: 93005; 87088; 85025; 87086; 80048; 36415; 85610; 80076; 87077; 87186; 70450; 96374; 99284; J0696; 81003; 81015

== ENCOUNTER 2021-06-12 11:24 | Observation (INO) | payer OTHER ==
[2021-06-12] MEDS ORDERED: CEFTRIAXONE/SWI 1gm 1 GM/10 ML SYR ONE (12:46)
[2021-06-12] MEDS ORDERED: NA CHLORIDE 0.9% 500 ML ONE (12:46)
[2021-06-12 12:51] LABS: Absolute Lymphocytes (CBC) 0.7 K/uL (0.7-4.9); Basophils % 0.5 % (0-1.3); Hematocrit 34.3 % (36.0-45.0); Lymphocytes % 11.7 % (15.3-44.8); MPV 8.6 fL (7.6-11.3); RBC Red Blood Cell Count 3.79 M/uL (3.86-4.86)
[2021-06-12 13:07] LABS: Potassium 4.2 mmol/L (3.5-5.1)
[2021-06-12] MEDS ORDERED: LORazepam 2 MG/ML VIAL ONE ×2 (13:09→18:42)
--- NOTE | 2021-06-12 13:36 | ER ---
Nurse's Notes [facility] Name: Madison Cerrato Age: 80 yrs Sex: Female : 1940 Arrival Date: 06/12/2021 Time: 11:24 Bed 23 Private MD: Diagnosis: Delirium due to known physiological condition;UTI/ Urinary tract infection, site not specified;Dehydration;Altered mental status, unspecified;Dementia in other diseases classified elsewhere with behavioral disturbance Presentation: 06/12 11:38 Chief complaint: Patient's son or daughter states: Here for mental health evaluation. ca1 She's been agitated, wandering. I don't have her medical records from [place] so I don't if she's been diagnosed with Alzheimer's or Dementia. Coronavirus screen: Client denies travel out of the [place] in the last 14 days. At this time, the client does not indicate any symptoms associated with coronavirus-19. Ebola Screen: Patient negative for fever greater than or equal to 101.5 degrees Fahrenheit, and additional compatible Ebola Virus Disease symptoms Patient denies exposure to infectious person. Patient denies travel to an Ebola-affected area in the 21 days before illness onset. No symptoms or risks identified at this time. Initial Sepsis Screen: Does the patient meet any 2 criteria? No. Patient's initial sepsis screen is negative. Does the patient have a suspected source of infection? No. Patient's initial sepsis screen is negative. Risk Assessment: Do you want to hurt yourself or someone else? Patient reports no desire to harm self or others. Onset of symptoms was June 12, 2021. 11:38 Method Of Arrival: Wheelchair ca1 11:38 Acuity: JOHN 3 ca1 Triage Assessment: 21:37 General: Appears in no apparent distress. comfortable. ld1 Historical: - Allergies: 11:42 No Known Allergies; ca1 - PMHx: 11:42 Congestive heart failure; CVA; Hypertensive disorder; kidney disease; diabetes mellitus;ca1 - Immunization history:: Client reports receiving the 2nd dose of the Covid vaccine, Client reports receiving the 1st dose of the Covid vaccine, Pneumococcal vaccine status is unknown, Flu vaccine status is unknown. - Social history:: Smoking status: Patient denies any tobacco usage or history of. - Family history:: not pertinent. - Hospitalizations: : No recent hospitalization is reported. Screenin:10 Abuse screen: Denies threats or abuse. Denies injuries from another. Nutritional ld1 screening: No deficits noted. Tuberculosis screening: No symptoms or risk factors identified. Fall Risk None identified. Assessment: 12:10 General: Behavior is. General: Behavior is calm, cooperative. Pain: Complains of pain ld1 in abdomen, right arm and left arm Pain does not radiate. Pain. Neuro: Level of Consciousness is awake, alert, confused, Oriented to person. Cardiovascular: Capillary refill < 3 seconds Patient's skin is warm and dry. Respiratory: Airway is patent Respiratory effort is even, unlabored, Respiratory pattern is regular, symmetrical. GI: Abdomen is flat, non-distended, Reports lower abdominal pain, upper abdominal pain. : No signs and/or symptoms were reported regarding the genitourinary system. Parent/caregiver report the patient having UTI. EENT: No signs and/or symptoms were reported regarding the EENT system. Derm: No signs and/or symptoms reported regarding the dermatologic system. Musculoskeletal: No signs and/or symptoms reported regarding the musculoskeletal system. 13:51 Reassessment: Patient appears in no apparent distress at this time. Patient and/or ld1 family updated on plan of care and expected duration. Pain level reassessed. Patient is alert, oriented x 3, equal unlabored respirations, skin warm/dry/pink. 14:39 Reassessment: Patient appears in no apparent distress at this time. Patient and/or ld1 family updated on plan of care and expected duration. Pain level reassessed. Patient denies pain at this time. 15:36 Reassessment: Patient appears in no apparent distress at this time. No changes from ld1 previously documented assessment. Patient and/or family updated on plan of care and expected duration. Pain level reassessed. Psych: 21:37 [place] Suicide Severity Screening: In the past month, have you wished you were ld1 or wished you could go to sleep and not wake up? Patient responds "No." "In the past month, have you actually had any thoughts of killing yourself?" Patient responds "no." "In your lifetime, have you ever done anything, started to do anything, or prepared to do anything to end your life?" Patient responds "no.". Subjective: Patient's mood is irritable. Objective: Patient is cooperative, irritable. Interventions:. Vital Signs: 11:38 BP 170 / 78; Pulse 92; Resp 18 S; Temp 97.3(TE); Pulse Ox 100% on R/A; ca1 12:10 BP 166 / 75; Pulse 90; Resp 18; Pulse Ox 100% on R/A; ld1 13:51 BP 170 / 78; Pulse 86; Resp 17; Pulse Ox 100% on R/A; ld1 14:38 BP 162 / 70; Pulse 88; Resp 18; Pulse Ox 100% ; ld1 15:36 BP 165 / 75; Pulse 84; Resp 17; Pulse Ox 100% ; ld1 ED Course: 11:24 Patient arrived in ED. rg4 11:42 Triage completed. ca1 11:42 Arm band placed on right wrist. ca1 12:01 Troy George MD is Attending Physician. rn 12:10 Yeny Menjivar RN is Primary Nurse. ld1 12:10 Patient has correct armband on for positive identification. Bed in low position. Call ld1 light in reach. Side rails up X2. Pulse ox on. NIBP on. 12:10 No provider procedures requiring assistance completed. ld1 13:36 Mp George MD is Hospitalizing Provider. rn 14:32 COVID-19 : Document "Date of Symptom Onset" if Symptomatic. Sent. ld1 21:38 Patient admitted, IV remains in place. intact, bleeding controlled, No redness/swelling ld1 at site. Administered Medications: 12:43 Drug: NS 0.9% 500 ml Route: IV; Rate: bolus; Site: left antecubital; ld1 14:29 Follow up: Response: No adverse reaction; IV Status: Completed infusion ld1 12:43 Drug: Rocephin (cefTRIAXone) 1 grams Route: IV; Rate: calculated rate; Site: left ld1 antecubital; 14:29 Follow up: Response: No adverse reaction; IV Status: Completed infusion ld1 12:50 Drug: Ativan (LORazepam) 0.5 mg Route: IVP; Site: left antecubital; ld1 14:29 Follow up: Response: No adverse reaction ld1 Outcome: 13:36 Decision to Hospitalize by Provider. rn 21:38 Admitted to Med/surg accompanied by tech, via wheelchair, room 225, with chart, Report ld1 called to Laurita Rogers 21:38 Condition: stable 21:39 Patient left the ED. ld1 Signatures: Troy George MD MD rn Gregg, Mackenzie rg4 Blanquita Matias RN RN ca1 Yeny Menjivar RN RN ld1 Corrections: (The following items were deleted from the chart) 14:39 14:38 Reassessment: Patient appears in no apparent distress at this time. No changes ld1 from previously documented assessment. Patient and/or family updated on plan of care and expected duration. Pain level reassessed. Patient is alert, oriented x 3, equal unlabored respirations, skin warm/dry/pink. ld1
--- NOTE | 2021-06-12 13:37 | EDPHYS ---
Physician Documentation [facility] Name: Madison Cerrato Age: 80 yrs Sex: Female : 1940 Arrival Date: 06/12/2021 Time: 11:24 Bed 23 Private MD: ED Physician Troy George HPI: 06/12 12:24 This 80 yrs old Female presents to ER via Wheelchair with complaints of rn altered mental status. 12:25 The patient presents with agitation, confusion. Onset: The symptoms/episode rn began/occurred at an unknown time. Possible causes: unknown. Associated signs and symptoms: Pertinent positives: agitation, confusion, Pertinent negatives: abdominal pain, chest pain, headache, seizure, shortness of breath. Current symptoms: In the emergency department the patient's symptoms are unchanged from the initial presentation. The patient has experienced similar episodes in the past. The patient has been recently seen at the [facility] Emergency Department. Seen here last night, diagnosed with UTI, brought back in by daughter for increased AMS, is agitated, confused, pacing, is barricading her door at night, no fever. hasn't filled the abx. Given IV abx last night. No head injury. . Historical: - Allergies: 11:42 No Known Allergies; ca1 - PMHx: 11:42 Congestive heart failure; CVA; Hypertensive disorder; kidney disease; diabetes mellitus;ca1 - Immunization history:: Client reports receiving the 2nd dose of the Covid vaccine, Client reports receiving the 1st dose of the Covid vaccine, Pneumococcal vaccine status is unknown, Flu vaccine status is unknown. - Social history:: Smoking status: Patient denies any tobacco usage or history of. - Family history:: not pertinent. - Hospitalizations: : No recent hospitalization is reported. ROS: 12:25 Constitutional: Negative for fever, chills, and weight loss, Eyes: Negative for injury, rn pain, redness, and discharge, ENT: Negative for injury, pain, and discharge, Neck: Negative for injury, pain, and swelling, Cardiovascular: Negative for chest pain, palpitations, and edema, Respiratory: Negative for shortness of breath, cough, wheezing, and pleuritic chest pain, Abdomen/GI: Negative for abdominal pain, nausea, vomiting, diarrhea, and constipation, Back: Negative for injury and pain, : Negative for injury, bleeding, discharge, and swelling, MS/Extremity: Negative for injury and deformity, Skin: Negative for injury, rash, and discoloration, Neuro: Negative for headache, weakness, numbness, tingling, and seizure. 12:28 All other systems are negative. rn Exam: 12:25 Constitutional: This is a well developed, well nourished patient who is awake, alert, rn and in no acute distress. Blank stare and agitated, pacing around room. Head/Face: Normocephalic, atraumatic. Eyes: Pupils equal round and reactive to light, extra-ocular motions intact. Lids and lashes normal. Conjunctiva and sclera are non-icteric and not injected. Cornea within normal limits. Periorbital areas with no swelling, redness, or edema. ENT: dry MM Neck: Trachea midline, no masses palpated, and no cervical lymphadenopathy. Supple, full range of motion without nuchal rigidity, or vertebral point tenderness. No Meningismus. Cardiovascular: Regular rate and rhythm. No pulse deficits. Respiratory: No increased work of breathing, no retractions or nasal flaring. Abdomen/GI: soft, non-tender Skin: Warm, dry MS/ Extremity: Pulses equal, no cyanosis. Neuro: Awake and alert, GCS 15, oriented to person and place, not time. Cranial nerves II-XII grossly intact. Motor strength 5/5 in all extremities. Sensory grossly intact. Cerebellar exam normal. Normal gait. Vital Signs: 11:38 BP 170 / 78; Pulse 92; Resp 18 S; Temp 97.3(TE); Pulse Ox 100% on R/A; ca1 12:10 BP 166 / 75; Pulse 90; Resp 18; Pulse Ox 100% on R/A; ld1 13:51 BP 170 / 78; Pulse 86; Resp 17; Pulse Ox 100% on R/A; ld1 14:38 BP 162 / 70; Pulse 88; Resp 18; Pulse Ox 100% ; ld1 15:36 BP 165 / 75; Pulse 84; Resp 17; Pulse Ox 100% ; ld1 MDM: 12:01 Patient medically screened. rn 13:33 Differential Diagnosis: electrolyte abnormality, UTI, volume depletion, worsening rn dementia. Data reviewed: vital signs, nurses notes, old medical records, lab test result(s), and as a result, I will admit patient. Counseling: I had a detailed discussion with the patient and/or guardian regarding: the historical points, exam findings, and any diagnostic results supporting the discharge/admit diagnosis, lab results, radiology results, the need for further work-up and treatment in the hospital. Response to treatment: the patient's symptoms have mildly improved after treatment, and as a result, I will admit patient. Admission orders: after a detailed discussion of the patient's condition and case, the admit orders are written by me. ED course: Pt improved with fluids and a little ativan, recent culture shows E. Coli that is sensitive to multiple abx, will admit for delirium with UTI on top of her dementia and family not able to care for her at home.. 06/12 12:22 Order name: CBC with Diff; Complete Time: 13:06 rn 06/12 12:22 Order name: Basic Metabolic Panel; Complete Time: 13:29 rn 06/12 12:22 Order name: Blood Culture Adult (2) rn 06/12 12:22 Order name: Procalcitonin rn 06/12 12:22 Order name: Lactate; Complete Time: 13:29 rn 06/12 14:29 Order name: COVID-19 : Document "Date of Symptom Onset" if Symptomatic. ld1 06/12 12:22 Order name: IV Start; Complete Time: 12:43 rn 06/12 16:04 Order name: SARS-COV-2 RT PCR EDMS Administered Medications: 12:43 Drug: NS 0.9% 500 ml Route: IV; Rate: bolus; Site: left antecubital; ld1 14:29 Follow up: Response: No adverse reaction; IV Status: Completed infusion ld1 12:43 Drug: Rocephin (cefTRIAXone) 1 grams Route: IV; Rate: calculated rate; Site: left ld1 antecubital; 14:29 Follow up: Response: No adverse reaction; IV Status: Completed infusion ld1 12:50 Drug: Ativan (LORazepam) 0.5 mg Route: IVP; Site: left antecubital; ld1 14:29 Follow up: Response: No adverse reaction ld1 Disposition Summary: 06/12/21 13:36 Hospitalization Ordered Hospitalization Status: Inpatient Admission rn Provider: Mp George rn Condition: Stable rn Problem: new rn Symptoms: have improved rn Bed/Room Type: Standard rn Location: Telemetry/MedSurg (Inpatient)(06/12/21 20:35) cg Room Assignment: [facility](06/12/21 20:43) cg Diagnosis - Delirium due to known physiological condition rn - UTI/ Urinary tract infection, site not specified rn - Dehydration rn - Altered mental status, unspecified rn - Dementia in other diseases classified elsewhere with behavioral disturbance rn Forms: - Medication Reconciliation Form rn - SBAR form rn Signatures: Dispatcher [employer] EDMS Troy George MD MD rn Smirch, Shelby, RN RN ss Jeane Escobedo RN RN cg Blanquita Matias RN RN [facility] Yeny Menjivra RN RN ld1 Corrections: (The following items were deleted from the chart) 12:30 12:25 Constitutional: This is a well developed, well nourished patient who is awake, rn alert, and in no acute distress. Blank stare and agitated, pacing around room. rn 17:28 13:36 Telemetry/MedSurg (Inpatient) rn ss 17:28 13:36 rn 20:35 17:28 [facility] ER HOLD ss cg 20:35 17:28 ERHOLD- ss cg 20:43 20:35 cg cg
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
[2021-06-12] MEDS: NA CHLORIDE 0.9% 1,000 ML IV SCH ×2 (17:21→21:52)
[2021-06-12] MEDS ORDERED: ONDANSETRON 4 MG/2 ML VIAL IV PRN (17:21)
[2021-06-12] MEDS: ENOXAPARIN 40 MG/0.4 ML SQ SCH (18:00)
[2021-06-12] MEDS ORDERED: ENOXAPARIN 40 MG/0.4 ML SQ ONE (19:27)
[2021-06-12] MEDS ORDERED: NA CHLORIDE 0.9% 1,000 ML ONE (19:27)
[2021-06-12] MEDS ORDERED: ATORVASTATIN 40 MG TAB PO SCH (21:00)
[2021-06-12] MEDS ORDERED: clonazePAM 0.5 MG TAB PO SCH (21:00)
[2021-06-12 21:11] VITALS: O2SAT 98
[2021-06-12] MEDS: RISPERIDONE 0.25 MG TABLET PO SCH (22:00)
[2021-06-12 22:15] VITALS: BMI 25.8
[2021-06-13 04:22] LABS: Bilirubin Total 0.3 mg/dL (0.2-1.0); Magnesium 1.9 mg/dL (1.8-2.4); Phosphorus 3.7 mg/dL (2.5-4.9); Potassium 3.5 mmol/L (3.5-5.1); Protein, Total 5.9 g/dL (6.4-8.2)
[2021-06-13 04:23] LABS: Absolute Lymphocytes (CBC) 1.8 K/uL (0.7-4.9); Basophils % 0.8 % (0-1.3); Hematocrit 30.5 % (36.0-45.0); Lymphocytes % 31.6 % (15.3-44.8); MPV 9.1 fL (7.6-11.3); RBC Red Blood Cell Count 3.39 M/uL (3.86-4.86)
[2021-06-13] MEDS: NA CHLORIDE 0.9% 1,000 ML IV SCH ×2 (04:54→11:30)
[2021-06-13] MEDS ORDERED: ESCITALOPRAM 20 MG TAB PO SCH (09:00)
[2021-06-13] MEDS ORDERED: CEFTRIAXONE/SWI 1gm 1 GM/10 ML SYR IVP SCH (09:00)
[2021-06-13] MEDS ORDERED: POTASSIUM CL SA 10 MEQ TAB PO ONE (09:00)
[2021-06-13] MEDS: ENOXAPARIN 40 MG/0.4 ML SQ SCH (11:29)
[2021-06-13] MEDS: RISPERIDONE 0.25 MG TABLET PO SCH (11:30)
[2021-06-13 12:46] VITALS: BP 175/74; TEMP 97.7
--- NOTE | 2021-06-13 15:12 | P.DS ---
Admission Date: 06/12/21 Discharge Date: 06/13/21 Reason for Admission: UTI, AMS - Problems (1) Dementia Current Visit: Yes Status: Acute (2) UTI (urinary tract infection) Current Visit: Yes Status: Acute (3) Acute metabolic encephalopathy Current Visit: Yes Status: Acute Brief History of Present Illness: 80-year-old woman with a history of hypertension, coronary artery disease, anxiety and depression, dementia, recent hallucination was brought to the emergency department for the 2nd time due to worsening agitation and paranoia and confusion. Patient was in the emergency department a few days ago for syncopal episode and chest pain where workup was negative. Her UA suggested the presence of UTI and patient was given a dose of IV Rocephin. Daughter reported patient has been sundowning and has been more confused and agitated. She was complaining of suprapubic pain. Her UA done in the emergency department. There was concern for untreated UTI contributing to her symptoms. Patient was hospitalized for further management. Hospital Course: Patient admitted to the medical floor and started on IV Rocephin. She was also hydrated with IV fluid for dehydration. Urine culture done prior to this admission grew E. coli sensitive to several antibiotics. Repeat urine culture 2 days ago is growing Gram negative rods. Patient has been stable since admission. Recommended rotating her antipsychotics from Risperdal to Seroquel which may also help her to sleep at night. Discontinued trazodone at bedtime. Repeat urine culture is pending. Patient is prescribed Vantin to continue treatment for UTI. Vital Signs/Physical Exam: Temp Pulse Resp BP Pulse Ox 97.7 F 77 17 175/74 H 99 06/13/21 12:00 06/13/21 12:00 06/13/21 12:00 06/13/21 12:06/13/21 12:00 General: In no apparent distress, Oriented x3 HEENT: Mucous membr. moist/pink Neck: JVD not distended Respiratory: Clear to auscultation bilaterally, Normal air movement Cardiovascular: No edema, Regular rate/rhythm, Normal S1 S2 Gastrointestinal: Soft and benign, Non-distended Musculoskeletal: No swelling Integumentary: No rashes Neurological: Normal speech, Normal strength at 5/5 x4 extr, Cranial nerves 3-12 intact Laboratory Data at Discharge: WBC 5.80 K/uL (4.3-10.9) 06/13/21 03:22 Hgb 10.1 g/dL (12.0-15.0) L 06/13/21 03:22 Hct 30.5 % (36.0-45.0) L 06/13/21 03:22 Plt Count 250 K/uL (152-406) 06/13/21 03:22 Sodium 144 mmol/L (136-145) 06/13/21 03:22 Potassium 3.5 mmol/L (3.5-5.1) 06/13/21 03:22 BUN 11 mg/dL (7-18) 06/13/21 03:22 Creatinine 0.92 mg/dL (0.55-1.3) 06/13/21 03:22 Glucose 66 mg/dL (74-106) L 06/13/21 03:22 Phosphorus 3.7 mg/dL (2.5-4.9) 06/13/21 03:22 Magnesium 1.9 mg/dL (1.8-2.4) 06/13/21 03:22 Total Bilirubin 0.3 mg/dL (0.2-1.0) 06/13/21 03:22 AST 12 U/L (15-37) L 06/13/21 03:22 ALT 16 U/L (12-78) 06/13/21 03:22 Alkaline Phosphatase 77 U/L (45-117) 06/13/21 03:22 Home Medications: Isosorbide Mononitrate [Isosorbide Mononitrate ER] 60 mg PO DAILY 06/07/21 Losartan Potassium 25 mg PO DAILY 06/07/21 Montelukast [Singulair*] 10 mg PO DAILY 06/07/21 Pregabalin [Lyrica] 150 mg PO DAILY 06/07/21 buPROPion HCL [Bupropion Xl] 300 mg PO DAILY 06/07/21 clonazePAM [Clonazepam] 0.5 mg PO BEDTIME 06/07/21 Amlodipine [Norvasc*] 10 mg PO DAILY 06/12/21 Atorvastatin Calcium [Lipitor] 40 mg PO BEDTIME #30 tab 06/13/21 Cefpodoxime Proxetil 100 mg PO BID #14 tablet 06/13/21 Escitalopram [Lexapro] 20 mg PO DAILY 30 Days #30 tab 06/13/21 Quetiapine [Seroquel] 25 mg PO BEDTIME #30 tab 06/13/21 New Medications: Cefpodoxime Proxetil 100 mg PO BID #14 tablet Escitalopram [Lexapro] 20 mg PO DAILY 30 Days #30 tab Atorvastatin Calcium [Lipitor] 40 mg PO BEDTIME #30 tab Quetiapine [Seroquel] 25 mg PO BEDTIME #30 tab Diet: AHA Activity: Ad linnea Followup: NONE,NONE [Primary Care Provider] - 1-2 Weeks
== END 2021-06-13 16:03 | disposition home or self-care (01) ==
LOC: ER 11:24 → ERHOLD 14:18 → 2ND 21:23
PROVIDERS: ADMIT Hospitalist; ATTEND Internal Medicine
DX: N39.0 Urinary tract infection, site not specified (principal); G93.41 Metabolic encephalopathy; F03.90 Unspecified dementia, unspecified severity, without behavioral disturbance, psychotic disturbance, mood disturbance, and anxiety; Z20.822 Contact with and (suspected) exposure to COVID-19; I25.10 Atherosclerotic heart disease of native coronary artery without angina pectoris; F41.8 Other specified anxiety disorders; I12.9 Hypertensive chronic kidney disease with stage 1 through stage 4 chronic kidney disease, or unspecified chronic kidney disease; N18.2 Chronic kidney disease, stage 2 (mild)
CPT/HCPCS: 87040 ×2; 85025 ×2; 80048; 36415; 83735; 84100; 83605; 80053; 84145; 94760 ×3; U0003; J1650 ×2; J0696 ×2; J7040; J7030 ×3; G0378 ×3; 96365; 96366; 96375; 99285

== ENCOUNTER 2021-06-13 17:20 | Inpatient (IN) | payer OTHER ==
[2021-06-13 18:47] LABS: Absolute Lymphocytes (CBC) 1.9 K/uL (0.7-4.9); Basophils % 0.9 % (0-1.3); Lymphocytes % 27.3 % (15.3-44.8); MPV 8.6 fL (7.6-11.3); RBC Red Blood Cell Count 4.01 M/uL (3.86-4.86)
[2021-06-13 19:12] LABS: Potassium 3.5 mmol/L (3.5-5.1)
[2021-06-13] MEDS ORDERED: NA CHLORIDE 0.9% 500 ML ONE (19:19)
--- NOTE | 2021-06-13 19:24 | RAD REPORT ---
EXAM DESCRIPTION: CT - Head C Spine Cap Tab Wyatt - 06/13/2021 7:07 pm CLINICAL HISTORY: Trauma, pain COMPARISON: None. TECHNIQUE: Axial [address] head images were obtained. Axial [address] cervical spine images were obtaine d with sagittal and coronal reconstruction images reviewed. During dynamic enhancement of 100mL non-i onic contrast, axial 5 mm images of the chest, abdomen and pelvis were obtained. All CT scans are performed using dose optimization technique as appropriate and may include automated exposure control or mA/KV adjustment according to patient size. FINDINGS: No intracranial hemorrhage, mass or edema. No midline shift or abnormal fluid collection. Mastoid aircells and paranasal sinuses are clear. No skull fracture. No acute fracture or traumatic malalignment of the cervical spine is identified. Multilevel cervical spondylosis is noted. In particular, there is pannus formation at C1-C2 and varying degrees of neural foraminal narrowing. There is likely mild central spinal stenosis at the C5-[address] chest shows no pneumothorax, pulmonary contusion or pleural fluid collection. No mediastinal hemat austen and the aorta and pulmonary arteries are unremarkable. No chest will mass or abnormal axillary fi nding. No displaced rib fracture or other significant bony finding. Coronary artery calcifications. Small pericardial effusion. CT abdomen and pelvis show no injury to solid abdominal viscera. Cholecystectomy. No bowel injury or significant finding. No free air, free fluid or abnormal stranding. Renal scarring bilaterally. No hy dronephrosis. Hysterectomy. Diverticulosis without diverticulitis. Abdominal aortic atherosclerosis. T12 compression deformity is unchanged since 06/07/2021. Manubrial deformitie is unchanged. Remote le ft anterior rib fractures. IMPRESSION: No evidence of significant trauma to the head or neck. No evidence of significant trauma to the chest, abdomen, or pelvis.
[2021-06-13] MEDS ORDERED: NA CHLORIDE 0.9% 1,000 ML ONE (19:49)
[2021-06-13] MEDS ORDERED: CEFTRIAXONE/SWI 1gm 1 GM/10 ML SYR ONE (19:49)
--- NOTE | 2021-06-13 19:53 | EDPHYS ---
Physician Documentation [facility] Name: Madison Cerrato Age: 80 yrs Sex: Female : 1940 Arrival Date: 06/13/2021 Time: 17:24 Bed 26 Private MD: ED Physician Tyler Bailey HPI: 06/13 18:18 This 80 yrs old Female presents to ER via EMS with complaints of Dizziness, rn fall. 18:18 The patient presents with dizziness. Onset: The symptoms/episode began/occurred just rn prior to arrival. Context: occurred at a store, occurred while the patient was sitting, just prior to the episode the patient experienced lightheadedness. Modifying factors: The symptoms are alleviated by nothing, the symptoms are aggravated by nothing. Associated signs and symptoms: Pertinent positives: headache, Pertinent negatives: ataxia, chest pain, focal weakness, seizure, shortness of breath, syncope, vomiting. Severity of symptoms: At their worst the symptoms were mild in the emergency department the symptoms are unchanged. It is unknown whether or not the patient has had similar symptoms in the past. The patient has been recently been admitted at [facility]. Pt just discharged a few hours ago, I admitted her for UTI and dehydration, was at pharmacy with family picking up prescriptions, riding scooter, felt dizzy and fell off scooter, not sure if hit head, no LOC, no seizure, not on blood thinners, reports generalized weakness. . Historical: - PMHx: 17:31 Congestive heart failure; CVA; diabetes mellitus; kidney disease; Hypertensive disorder;ld1 - Immunization history:: Adult Immunizations up to date. - Social history:: Smoking status: Patient denies any tobacco usage or history of. - Family history:: not pertinent. - Hospitalizations: : The patient was recently seen at [facility]. ROS: 18:18 Constitutional: Negative for fever, chills, and weight loss, Eyes: Negative for injury, rn pain, redness, and discharge, Neck: Negative for injury, pain, and swelling, Cardiovascular: Negative for chest pain, palpitations, and edema, Respiratory: Negative for shortness of breath, cough, wheezing, and pleuritic chest pain, Abdomen/GI: Negative for abdominal pain, nausea, vomiting, diarrhea, and constipation, Back: Negative for injury and pain, MS/Extremity: Negative for injury and deformity, Skin: Negative for injury, rash, and discoloration, Neuro: Negative for numbness, tingling, and seizure. Exam: 18:31 Constitutional: Somnolent, awakens to voice and tactile stimulation Head/Face: rn Normocephalic, atraumatic. Eyes: Pupils equal round and reactive to light, extra-ocular motions intact. ENT: MMM Neck: NO cervical tenderness Chest/axilla: Normal chest wall appearance and motion. Nontender with no deformity. No lesions are appreciated. Cardiovascular: Regular rate and rhythm. No pulse deficits. Respiratory: No increased work of breathing, no retractions or nasal flaring. Abdomen/GI: soft, mild mid abd tenderness, no distension Skin: Warm, dry MS/ Extremity: Pulses equal, no cyanosis. Neuro: Somnolent, awakens to voice, mumbles drops both hands to bed when lifted but stops when lifted and dropped over her head, awakens and speaks to daughters. 19:44 ECG was reviewed by the Attending Physician. [facility] 19:57 ECG was reviewed by the Attending Physician. [facility] Vital Signs: 17:24 BP 184 / 93; Pulse 86; Resp 18; Temp 98.5(O); Pulse Ox 100% on R/A; Weight 52.62 kg; ld1 Height 5 ft. 4 in. (162.56 cm); 19:46 BP 188 / 83; Pulse 85; Resp 18; Pulse Ox 100% on R/A; ld1 17:24 Body Mass Index 19.91 (52.62 kg, 162.56 cm) ld1 MDM: 17:28 Patient medically screened. rn 18:59 ED course: Pt more alert in room, stable vitals, awaiting CT. Daughters in room rn continuing to argue amongst themselves and threaten to aniceto eachother. One daughter wants to take her home to care for her, the other 2 want her to go to senior care. . 19:02 Transition of care: After a detail discussion of the patient's case, care is rn transferred to Tyler Bailey MD. 19:43 Differential diagnosis: cardiac arrhythmia, CVA, generalized weakness, head injury, antonio hypovolemia, idiopathic dizziness, near-syncope, syncope, TIA. Data reviewed: vital signs, nurses notes, lab test result(s), EKG, radiologic studies, CT scan, plain films. 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 Test interpretation: by ED physician or midlevel provider: ECG, plain radiologic studies. Counseling: I had a detailed discussion with the patient and/or guardian regarding: the historical points, exam findings, and any diagnostic results supporting the discharge/admit diagnosis, lab results, radiology results, the need for further work-up and treatment in the hospital. 06/13 17:40 Order name: CBC with Diff; Complete Time: 18:51 06/13 17:40 Order name: Basic Metabolic Panel; Complete Time: 19:18 06/13 19:18 Order name: Troponin (emerg Dept Use Only); Complete Time: 20:10 [facility] 06/14 06:49 Order name: CBC with Automated Diff [facility] 06/14 06:49 Order name: Comprehensive Metabolic Panel [facility] 06/14 06:49 Order name: Phosphorus [facility] 06/13 17:40 Order name: CT Traumagram (Head C Spine CAP W Con); Complete Time: 19:43 06/14 06:49 Order name: Lipid Profile [facility] 06/14 06:49 Order name: T4 Free [facility] 06/14 06:49 Order name: Magnesium [facility] 06/14 06:49 Order name: Thyroid Stimulating Hormone [facility] 06/13 17:40 Order name: IV Start; Complete Time: 18:47 06/13 17:40 Order name: EKG; Complete Time: 17:41 06/13 17:40 Order name: EKG - Nurse/Tech; Complete Time: 18:47 06/13 19:18 Order name: EKG; Complete Time: 19:18 [facility] 06/13 19:18 Order name: EKG - Nurse/Tech; Complete Time: 19:58 [facility] EC:44 Rate is 78 beats/min. QRS [place] is Normal. CA interval is normal. QRS interval is antonio normal. QT interval is normal. No Q waves. T waves are Normal. No ST changes noted. Clinical impression: NSR w/ Non-specific ST/T Changes and No evidence of ischemia. Interpreted by me. Reviewed by me. 19:57 Rate is 81 beats/min. Rhythm is regular. QRS [place] is Normal. CA interval is normal. QRS antonio interval is normal. QT interval is normal. No Q waves. T waves are Normal. No ST changes noted. Clinical impression: Abnormal EKG without significant change and No evidence of ischemia. Interpreted by me. Reviewed by me. Administered Medications: 19:02 Drug: NS 0.9% 500 ml Route: IV; Rate: bolus; Site: right antecubital; ld1 19:45 Drug: Rocephin (cefTRIAXone) 1 grams Route: IV; Rate: per protocol; Site: right ld1 antecubital; 19:58 Drug: NS 0.9% 1000 ml Route: IV; Rate: 125 ml/hr; Site: right antecubital; ld1 20:15 Drug: hydrALAZINE 10 mg Route: IVP; Site: right antecubital; ld1 21:09 Drug: Ativan (LORazepam) 1 mg Route: IM; Site: right deltoid; ld1 21:28 Drug: Geodon (ziprasidone) 10 mg Route: IM; Site: right gluteus; ld1 Disposition Summary: 06/13/21 19:52 Hospitalization Ordered Hospitalization Status: Inpatient Admission antonio Provider: Demond Monreal cha Condition: Stable antonio Problem: new antonio Symptoms: have improved antonio Bed/Room Type: Standard antonio Location: Telemetry/MedSurg (Inpatient)(06/14/21 13:30) Room Assignment: [facility](06/14/21 13:30) Diagnosis - Dementia in other diseases classified elsewhere without behavioral disturbance antonio - Weakness antonio - Syncope Near antonio - UTI/ Urinary tract infection, site not specified antonio - Fall (on) (from) other stairs and steps antonio - Hallucinations, unspecified antonio Forms: - Medication Reconciliation Form antonio - SBAR form antonio Signatures: Dispatcher [employer] Vita Livingston RN RN dw Anderson, Corey, MD MD cha Nieto, Roman, MD MD rn Garcia, Cindy, RN RN cg Dibbern, Lauren, RN RN ld1 Corrections: (The following items were deleted from the chart) 18:34 18:31 Constitutional: Somnolent rn rn 21:04 19:52 Telemetry/MedSurg (Inpatient) antonio cg 21:04 19:52 antonio 06/14 13:30 06/13 21:04 [facility] ER HOLD [facility] 06/14 13:30 07/13 21:04 ERHOLD- dw
--- NOTE | 2021-06-13 19:53 | ER ---
Nurse's Notes [facility] Name: Madison Cerrato Age: 80 yrs Sex: Female : 1940 Arrival Date: 06/13/2021 Time: 17:24 Bed 26 Private MD: Diagnosis: Dementia in other diseases classified elsewhere without behavioral disturbance;Weakness;Syncope Near;UTI/ Urinary tract infection, site not specified;Fall (on) (from) other stairs and steps;Hallucinations, unspecified Presentation: 06/13 17:24 Chief complaint: EMS states: [facility] syncopal [facility]. Coronavirus ld1 screen: At this time, the client does not indicate any symptoms associated with coronavirus-19. Ebola Screen: No symptoms or risks identified at this time. Initial Sepsis Screen: Does the patient meet any 2 criteria? No. Patient's initial sepsis screen is negative. Does the patient have a suspected source of infection? No. Patient's initial sepsis screen is negative. Risk Assessment: Do you want to hurt yourself or someone else? Patient reports no desire to harm self or others. Onset of symptoms was June 13, 2021. 17:24 Method Of Arrival: EMS: [facility] ld1 17:24 Acuity: JOHN 3 ld1 Triage Assessment: 17:31 General: Appears in no apparent distress. uncomfortable, Behavior is calm, cooperative, ld1 appropriate for age. Pain: Denies pain. EENT: No signs and/or symptoms were reported regarding the EENT system. Neuro: Level of Consciousness is awake, confused, lethargic, Oriented to person. Cardiovascular: Capillary refill < 3 seconds Patient's skin is warm and dry. Respiratory: Airway is patent Respiratory effort is even, unlabored, Respiratory pattern is regular, symmetrical. GI: Abdomen is flat, non-distended. : No signs and/or symptoms were reported regarding the genitourinary system. Derm: No signs and/or symptoms reported regarding the dermatologic system. Musculoskeletal: No signs and/or symptoms reported regarding the musculoskeletal system. Historical: - PMHx: 17:31 Congestive heart failure; CVA; diabetes mellitus; kidney disease; Hypertensive disorder;ld1 - Immunization history:: Adult Immunizations up to date. - Social history:: Smoking status: Patient denies any tobacco usage or history of. - Family history:: not pertinent. - Hospitalizations: : The patient was recently seen at [facility]. Screenin:33 Abuse screen: Denies threats or abuse. Denies injuries from another. Nutritional ld1 screening: No deficits noted. Tuberculosis screening: No symptoms or risk factors identified. Fall Risk Fall in past 12 months (25 points). Gait- Weak (10 pts.). Mental Status- Overestimates/Forgets Limitations (15 pts.). Total Roberts Fall Scale indicates High Risk Score (45 or more points). Assessment: 17:33 Reassessment: See triage assessment. ld1 19:46 Reassessment: Patient appears in no apparent distress at this time. No changes from ld1 previously documented assessment. Patient and/or family updated on plan of care and expected duration. Pain level reassessed. Patient is alert, oriented x 3, equal unlabored respirations, skin warm/dry/pink. Family with pt at bedside. Pt denies concerns at this time. Vital Signs: 17:24 BP 184 / 93; Pulse 86; Resp 18; Temp 98.5(O); Pulse Ox 100% on R/A; Weight 52.62 kg; ld1 Height 5 ft. 4 in. (162.56 cm); 19:46 BP 188 / 83; Pulse 85; Resp 18; Pulse Ox 100% on R/A; ld1 17:24 Body Mass Index 19.91 (52.62 kg, 162.56 cm) ld1 ED Course: 17:24 Patient arrived in ED. ld1 17:28 Troy George MD is Attending Physician. rn 17:31 Triage completed. ld1 17:31 Arm band placed on right wrist. ld1 17:33 Patient has correct armband on for positive identification. Placed in gown. Bed in low ld1 position. Call light in reach. Side rails up X2. Adult w/ patient. product ambassador on. Pulse ox on. NIBP on. 17:33 No provider procedures requiring assistance completed. ld1 17:59 Yeny Menjivar, RN is Primary Nurse. ld1 19:07 CT Traumagram (Head C Spine CAP W Con) In Process Unspecified. EDNY 19:12 Attending Physician role handed off by Troy George MD [facility] 19:12 Tyler Bailey MD is Attending Physician. [facility] 19:45 Troponin (emerg Dept Use Only) Sent. ld1 19:46 Demond Monreal is Hospitalizing Provider. [facility] 06/14 07:00 Inserted saline lock: in left forearm, using aseptic technique. oe Administered Medications: 06/13 19:02 Drug: NS 0.9% 500 ml Route: IV; Rate: bolus; Site: right antecubital; ld1 19:45 Drug: Rocephin (cefTRIAXone) 1 grams Route: IV; Rate: per protocol; Site: right ld1 antecubital; 19:58 Drug: NS 0.9% 1000 ml Route: IV; Rate: 125 ml/hr; Site: right antecubital; ld1 20:15 Drug: hydrALAZINE 10 mg Route: IVP; Site: right antecubital; ld1 21:09 Drug: Ativan (LORazepam) 1 mg Route: IM; Site: right deltoid; ld1 21:28 Drug: Geodon (ziprasidone) 10 mg Route: IM; Site: right gluteus; ld1 Outcome: 19:52 Decision to Hospitalize by Provider. [facility] 06/14 15:06 Patient left the ED. iw Signatures: Dispatcher [employer] EDMS Tyler Bailey MD MD cha Williams, Irene, Troy Harkins RN, MD MD rn Espinosa, [place] oe Dibbern, Lauren, RN RN ld1
[2021-06-13] MEDS ORDERED: HYDRALAZINE HCL 20 MG/ML VIAL ONE (20:33)
--- NOTE | 2021-06-13 20:41 | P.HP ---
Certification for Inpatient Patient admitted to: Observation With expected LOS: <2 Midnights Patient will require the following post-hospital care: Snf Practitioner: I am a practitioner with admitting privileges, knowledge of patient current condition, hospital course, and medical plan of care. Services: Services provided to patient in accordance with Admission requirements found in Title 42 Section 412.3 of the Code of Federal Regulations <Rory Garcia - Last Filed: 06/13/21 20:35> Patient History Date of Service: 06/13/21 Reason for admission: fall, weakness History of Present Illness: Ms. Cerrato is an 80 yo F with HTN, CAD, dementia, history of hallucinations here today for a fall. She was recently discharged from the hospital this afternoon with diagnosis of UTI. Her daughter took her to [facility] to draft roller picker her new prescriptions. She said she was lightheaded and dizzy so they brought her a scooter to use. She fell of the scooter. Was unresponsive until EMS arrived. Did not hit head. No complaints at this time. Trauma scan within normal limits. Daughter reports generalized weakness. Recent workup for syncope was without abnormal findings. Family is open to discussion about nursing homes. - Past Medical/Surgical History -: HTN -: CAD -: Anxiety/depression -: CKD2 -: Dementia -: Hallucinations -: Knee surgery -: Hysterectomy -: Cholecystectomy Psychosocial/ Personal History: Retired, lives with sister - Family History Mother -: Cancer - Social History Smoking Status: Unknown if ever smoked Alcohol use: No CD- Drugs: No Caffeine use: Yes Place of Residence: Home <JoseRory - Last Filed: 06/13/21 20:35> Date of Service: 06/14/21 <Chioma Arora - Last Filed: 06/17/21 01:32> Allergies milk Allergy (Verified 06/16/21 08:18) Nausea/Vomiting Home Medications: Isosorbide Mononitrate [Isosorbide Mononitrate ER] 60 mg PO DAILY 06/07/21 Losartan Potassium 25 mg PO DAILY 06/07/21 Montelukast [Singulair*] 10 mg PO DAILY 06/07/21 Pregabalin [Lyrica] 150 mg PO DAILY 06/07/21 buPROPion HCL [Bupropion Xl] 300 mg PO DAILY 06/07/21 clonazePAM [Clonazepam] 0.5 mg PO BEDTIME 06/07/21 Amlodipine [Norvasc*] 10 mg PO DAILY 06/12/21 Atorvastatin Calcium [Lipitor] 40 mg PO BEDTIME #30 tab 06/13/21 Escitalopram [Lexapro*] 20 mg PO DAILY 30 Days #30 tab 06/13/21 Quetiapine [Seroquel*] 25 mg PO BEDTIME #30 tab 06/13/21 Review of Systems 10-point ROS is otherwise unremarkable General: Weakness Cardiovascular: Light Headedness Neurological: Weakness <Rory Garcia - Last Filed: 06/13/21 20:35> Physical Examination - Physical Exam General: Alert, In no apparent distress, Cooperative, Demented HEENT: Atraumatic, PERRLA, Mucous membr. moist/pink, EOMI, Sclerae nonicteric Neck: Supple, 2+ carotid pulse no bruit, No LAD, Without JVD or thyroid abnormality Respiratory: Clear to auscultation bilaterally, Normal air movement Cardiovascular: No edema Gastrointestinal: Normal bowel sounds, No tenderness Musculoskeletal: No tenderness Integumentary: No rashes Neurological: Normal speech, Normal strength at 5/5 x4 extr, Normal tone, Sensation intact, Cranial nerves 3-12 intact, Dementia Lymphatics: No axilla or inguinal lymphadenopathy - Studies Laboratory Data (last 24 hrs) 06/13/21 18:35: Sodium 141, Potassium 3.5, BUN 12, Creatinine 1.14, Glucose 78 06/13/21 18:35: WBC 6.80 D, Hgb 12.1, Hct 36.0 D, Plt Count 287 <Rory Garcia - Last Filed: 06/13/21 20:35> Assessment and Plan - Problems (Diagnosis) (1) HTN (hypertension) Current Visit: Yes Status: Chronic Qualifiers: Hypertension type: primary hypertension Qualified Code(s): I10 - Essential (primary) hypertension (2) CAD (coronary artery disease) Current Visit: Yes Status: Chronic Qualifiers: Coronary Disease-Associated Artery/Lesion type: unspecified vessel or lesion type [place] vs. transplanted heart: [place] heart Associated angina: without angina Qualified Code(s): I25.10 - Atherosclerotic heart disease of [place] coronary artery without angina pectoris (3) Falls Current Visit: Yes Status: Acute Qualifiers: Encounter type: initial encounter Qualified Code(s): W19.XXXA - Unspecified fall, initial encounter (4) Dementia Current Visit: No Status: Chronic Qualifiers: Dementia type: unspecified type Dementia behavioral disturbance: with behavioral disturbance Qualified Code(s): F03.91 - Unspecified dementia with behavioral disturbance (5) UTI (urinary tract infection) Current Visit: No Status: Chronic Qualifiers: Urinary tract infection type: site unspecified Hematuria presence: without hematuria Qualified Code(s): N39.0 - Urinary tract infection, site not specified - Plan on telemetry PT, OT, social work consulted for mcc evaluation and possible placement dietitian consulted for possible need for nutrition supplements continue IV antibiotics for UTI, gentle fluid hydration hydralazine for PRN BP spikes will reconcile and continue home medications DVT ppx Discharge Plan: Long-Term Plan to discharge in: 24 Hours - Advance Directives Does patient have a Living Will: No Does patient have a Durable POA for Healthcare: No - Code Status/Comfort Care Code Status Assessed: Yes (full code ) Critical Care: No Time Spent Managing Pts Care (In Minutes): 70 <Rory Garcia - Last Filed: 06/13/21 20:35> - Problems (Diagnosis) (1) Paranoid delusion Current Visit: Yes Status: Acute (2) Falls Current Visit: Yes Status: Acute Qualifiers: Encounter type: initial encounter Qualified Code(s): W19.XXXA - Unspecified fall, initial encounter (3) CAD (coronary artery disease) Current Visit: Yes Status: Chronic Qualifiers: Coronary Disease-Associated Artery/Lesion type: unspecified vessel or lesion type [place] vs. transplanted heart: [place] heart Associated angina: without angina Qualified Code(s): I25.10 - Atherosclerotic heart disease of [place] coronary artery without angina pectoris (4) HTN (hypertension) Current Visit: Yes Status: Chronic Qualifiers: Hypertension type: primary hypertension Qualified Code(s): I10 - Essential (primary) hypertension (5) Dementia Current Visit: No Status: Chronic Qualifiers: Dementia type: unspecified type Dementia behavioral disturbance: with behavioral disturbance Qualified Code(s): F03.91 - Unspecified dementia with behavioral disturbance <Chioma Arora - Last Filed: 06/17/21 01:32> Date of Service: 06/14/21 Spoke with family and their concern is patient has paranoid delusions. Patient has been scared someone is out to get her. She has been running out of the house. Pt is worried she is a danger to herself. At this time, will try to get her to a [facility] & get her medications adjusted. <Chioma Arora - Last Filed: 06/17/21 01:32>
[2021-06-13] MEDS ORDERED: LORazepam 2 MG/ML VIAL ONE ×2 (21:22→21:25)
[2021-06-13] MEDS ORDERED: ZIPRASIDONE MESYLA 20 MG/VIAL IM ONE (21:43)
[2021-06-13] MEDS ORDERED: WATER FOR INJ,STERILE 10 ML ONE (21:44)
[2021-06-13 23:10] VITALS: BMI 21.2
[2021-06-13] MEDS ORDERED: ACETAMINOPHEN 500 MG TAB PO PRN (23:11)
[2021-06-13] MEDS: NA CHLORIDE 0.9% 1,000 ML IV SCH (23:11)
[2021-06-13] MEDS: QUETIAPINE 25 MG TAB PO SCH (23:11)
[2021-06-13] MEDS ORDERED: ONDANSETRON 4 MG/2 ML VIAL IV PRN (23:11)
[2021-06-14 05:54] LABS: Basophils % 0.8 % (0-1.3); Hematocrit 33.8 % (36.0-45.0); Lymphocytes % 20.6 % (15.3-44.8); MPV 8.7 fL (7.6-11.3); RBC Red Blood Cell Count 3.77 M/uL (3.86-4.86)
[2021-06-14 06:15] LABS: Albumin 3.2 g/dL (3.4-5.0); Bilirubin Total 0.2 mg/dL (0.2-1.0); Magnesium 1.9 mg/dL (1.8-2.4); Phosphorus 3.7 mg/dL (2.5-4.9); Potassium 3.6 mmol/L (3.5-5.1); Protein, Total 6.5 g/dL (6.4-8.2); Thyroid Stimulating Hormone 1.66 uIU/mL (0.360-3.740)
--- NOTE | 2021-06-14 09:02 | CON ---
Date of Consultation: 06/07/2021 The patient was admitted on 06/06/[address] George's service. I saw the patient on 06/07/2021. Reason For Consultation: Chest pain and syncope. History Of Present Illness: Ms. Cerrato is an 80-year-old woman, came in with chest pain that is sharp, stabbing, midsternal, worse with breathing. No nausea, vomiting, diaphoresis, P ND, orthopnea, or pedal edema, although the patient complained of syncope. She denies any abdominal pain, cough, diaphoresis, dizziness, headache, or extremity pain or edema. Her pain was not exertion al. Denies any fever or chills. Has been under significant amount of stress. Past Medical History: Include congestive heart failure, diabetes, hypertension, history of CVA, and kidney disease. Review of Systems: Negative. Social History: Negative. Family History: Noncontributory. Allergies: NONE. Medications: Her medications at home include Lexapro, Imdur, losartan, Singulair, Protonix, Lyrica, Desyrel, bupropion, clonazepam, and Risperdal. Physical Examination: Vital Signs: Stable. She was afebrile. HEENT: Negative. Neck: Supple. No bruit. Chest: Clear to auscultation and percussion. Cardiac: Revealed a regular rhythm and rate. No murmurs, gallops, or rubs. Abdomen: Benign. Extremities: Revealed no clubbing, cyanosis, or edema. Diagnostic Data: Laboratory evaluations were positive for some mild anemia. Creatinine was normal. Her potassium was 3.4. Her troponin, BNP, and lipid profile were normal. Her urinalysis may have b een positive for slight UTI. Impression And Plan: 1.Atypical chest pain, possibly gastroesophageal reflux disease related. 2.History of diabetes. 3.History of hypertension. 4.History of kidney disease stage 3. 5.She also has history of cerebrovascular accident. 6.History of congestive heart failure, that I presume is not colic. I think she needs to have an echocardiogram and a carotid Doppler, which have been ordered. Her EKG showed some PVCs. Her chest x-ray is negative. I think doing an outpatient stress test will be reas onable, but we will see what the echocardiogram and carotid ultrasound showed before we make any furt her decisions. Continue present regimen for now. YOLI/SUSAN Voice ID: [id number] Report ID: [id number]
[2021-06-14] MEDS: NA CHLORIDE 0.9% 1,000 ML IV SCH (10:24)
[2021-06-14] MEDS ORDERED: NA CHLORIDE 0.9% 1,000 ML ONE (10:38)
--- NOTE | 2021-06-14 12:40 | EKG ---
Test Date: 2021-06-13 Test Time: 19:54:40 [place]: NORA MEASUREMENT RESULTS: Intervals: Rate: 81 MN: 168 QRSD: 124 QT: 462 QTc: 536 [place]: P: 88 MN: 168 QRS: -15 T: 34 INTERPRETIVE STATEMENTS: Normal sinus rhythm Right bundle branch block Abnormal ECG Compared to ECG 06/13/2021 18:07:02 Ventricular premature complex(es) no longer present Electronically Signed On 06-14-21 12:37:34 CDT by Sunny Cast
--- NOTE | 2021-06-14 12:41 | EKG ---
Test Date: 2021-06-13 Test Time: 18:07:02 Leak Patcher: RUEL MEASUREMENT RESULTS: Intervals: Rate: 78 MD: 166 QRSD: 132 QT: 462 QTc: 526 [place]: P: 76 MD: 166 QRS: -23 T: 44 INTERPRETIVE STATEMENTS: Sinus rhythm with occasional premature ventricular complexes Right bundle branch block Abnormal ECG Compared to ECG 06/11/2021 21:02:35 Ventricular premature complex(es) now present Electronically Signed On 06-14-21 12:37:37 CDT by Sunny Cast
[2021-06-14] MEDS: HYDRALAZINE HCL 20 MG/ML VIAL IV PRN (13:21)
[2021-06-14] MEDS ORDERED: HYDRALAZINE HCL 20 MG/ML VIAL ONE (13:42)
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
[2021-06-14] MEDS ORDERED: ZIPRASIDONE MESYLA 20 MG/VIAL IM PRN (18:02)
[2021-06-14] MEDS ORDERED: WATER FOR INJ,STERILE 10 ML IM PRN (18:02)
[2021-06-14] MEDS: QUETIAPINE 25 MG TAB PO SCH (19:15)
[2021-06-14] MEDS: clonazePAM 0.5 MG TAB PO PRN (19:15)
[2021-06-14] MEDS ORDERED: CEFTRIAXONE 1 GM/NS 50 ML 1 GM/50 ML BAG IV SCH (21:00)
[2021-06-14] MEDS: CEFTRIAXONE/SWI 1gm 1 GM/10 ML SYR IVP SCH (21:00)
[2021-06-15] MEDS ORDERED: HYDROMORPHONE HCL 0.5 MG/0.5 ML INJ IV ONE (00:01)
[2021-06-15] MEDS: HYDRALAZINE HCL 20 MG/ML VIAL IV PRN ×4 (05:48→21:57)
[2021-06-15 08:43] LABS: Urine Appearance CLEAR (Clear); Urine Bilirubin NEGATIVE (Negative); Urine Blood NEGATIVE (Negative); Urine Color YELLOW (Yellow); Urine Glucose NEGATIVE (Negative); Urine Protein 2+ (Negative); Urine Specific Gravity 1.015 (1.005-1.030); Urine Urobilinogen 0.2 mg/dL (0.2-1.0)
[2021-06-15 08:46] LABS: Urine Microscopic Reflex ORDER UMIC
[2021-06-15 09:09] LABS: Urine Bacteria <20 /HPF (<20); Urine RBC <5 /HPF (NONE SEEN)
[2021-06-15 09:10] LABS: Urine Urothelial Cells <5 /HPF (NONE SEEN)
[2021-06-15] MEDS: QUETIAPINE 25 MG TAB PO SCH (21:50)
[2021-06-15] MEDS: CEFTRIAXONE/SWI 1gm 1 GM/10 ML SYR IVP SCH (21:50)
[2021-06-15] MEDS: ENSURE ENLIVE 237 ML CAN PO SCH (21:53)
[2021-06-15] MEDS: clonazePAM 0.5 MG TAB PO PRN (23:55)
[2021-06-16 06:25] LABS: Magnesium 1.7 mg/dL (1.8-2.4)
[2021-06-16 06:34] LABS: Potassium 2.9 mmol/L (3.5-5.1)
[2021-06-16] MEDS ORDERED: POTASSIUM 25 MEQ EFFERV TAB PO ONE ×2 (06:37→06:38)
[2021-06-16] MEDS ORDERED: POTASSIUM 25 MEQ EFFERV TAB ONE (07:04)
[2021-06-16] MEDS: ENSURE ENLIVE 237 ML CAN PO SCH ×4 (08:13→20:35)
[2021-06-16] MEDS ORDERED: MAGNESIUM SULFATE 1 gm IVPB 1 GM/100 ML BAG IV ONE (09:00)
[2021-06-16] MEDS ORDERED: PANTOPRAZOLE 40MG TABLET PO ONE (11:28)
[2021-06-16] MEDS ORDERED: MAGNES/ALUMIN/SIMET 30ML UCUP PO PRN (11:28)
[2021-06-16] MEDS ORDERED: HYDROCODONE/APAP 10/325 TAB PO PRN (11:29)
[2021-06-16] MEDS: CEFTRIAXONE/SWI 1gm 1 GM/10 ML SYR IVP SCH (19:56)
[2021-06-16] MEDS: QUETIAPINE 25 MG TAB PO SCH ×2 (19:57→21:00)
[2021-06-16] MEDS: clonazePAM 0.5 MG TAB PO PRN (20:35)
[2021-06-16] MEDS ORDERED: ARIPiprazole 5 MG TAB PO SCH (21:00)
--- NOTE | 2021-06-17 01:36 | P.PN ---
Date of Service: 06/15/21 Subjective Patient has been trying never run out of her room over the last 24 hr. she is being given antipsychotics intramuscularly and orally. Awaiting for [facility]. Review of Systems 10-point ROS is otherwise unremarkable Physical Examination - Vital Signs Reviewed - Physical Exam General: Alert, In no apparent distress, Oriented x3 Respiratory: Clear to auscultation bilaterally, Normal air movement Cardiovascular: Regular rate/rhythm, Normal S1 S2 Gastrointestinal: Normal bowel sounds, Soft and benign, Non-distended, No tenderness Musculoskeletal: No tenderness Integumentary: No rashes Neurological: Normal speech, Normal tone, Abnormal affect Assessment & Plan - Problems (Diagnosis) (1) Paranoid delusion Current Visit: Yes Status: Acute (2) Falls Current Visit: Yes Status: Acute Qualifiers: Encounter type: initial encounter Qualified Code(s): W19.XXXA - Unspecified fall, initial encounter (3) CAD (coronary artery disease) Current Visit: Yes Status: Chronic Qualifiers: Coronary Disease-Associated Artery/Lesion type: unspecified vessel or lesion type [place] vs. transplanted heart: [place] heart Associated angina: without angina Qualified Code(s): I25.10 - Atherosclerotic heart disease of [place] coronary artery without angina pectoris (4) HTN (hypertension) Current Visit: Yes Status: Chronic Qualifiers: Hypertension type: primary hypertension Qualified Code(s): I10 - Essential (primary) hypertension (5) Dementia Current Visit: No Status: Chronic Qualifiers: Dementia type: unspecified type Dementia behavioral disturbance: with b ehavioral disturbance Qualified Code(s): F03.91 - Unspecified dementia with behavioral disturbance (6) UTI Current Visit: Yes Status: Acute - Plan PLAN: 1. Psych eval 2. Seroquel 25 mg b.i.d. 3. May use antidepressant 4. Continue antibiotic therapy 5. Will change antibiotics to oral 6. GI and DVT prophylaxis
--- NOTE | 2021-06-17 01:42 | P.PN ---
Date of Service: 06/16/21 Subjective Patient is clinically doing well. Patient is much more pleasant and engaging today. Her daughter has been at bedside and also agrees. [facility] did not want except because she was on IV antibiotics the we did switch these to oral. Patient does not need any IV medications at this time. We are just adjusting her medications and she needs to be treated at a [facility] facility. Review of Systems 10-point ROS is otherwise unremarkable Physical Examination - Vital Signs Reviewed - Physical Exam General: Alert, In no apparent distress, Oriented x3; Respiratory: Clear to auscultation bilaterally, Normal air movement Cardiovascular: Regular rate/rhythm, Normal S1 S2 Gastrointestinal: Normal bowel sounds, Soft and benign, Non-distended, No tenderness Neurological: Normal speech, Normal tone, Normal affect Assessment & Plan - Problems (Diagnosis) (1) Paranoid delusion Current Visit: Yes Status: Acute (2) Falls Current Visit: Yes Status: Acute Qualifiers: Encounter type: initial encounter Qualified Code(s): W19.XXXA - Unspecified fall, initial encounter (3) CAD (coronary artery disease) Current Visit: Yes Status: Chronic Qualifiers: Coronary Disease-Associated Artery/Lesion type: unspecified vessel or lesion type [place] vs. transplanted heart: [place] heart Associated angina: without angina Qualified Code(s): I25.10 - Atherosclerotic heart disease of [place] coronary artery without angina pectoris (4) HTN (hypertension) Current Visit: Yes Status: Chronic Qualifiers: Hypertension type: primary hypertension Qualified Code(s): I10 - Essential (primary) hypertension (5) Dementia Current Visit: No Status: Chronic Qualifiers: Dementia type: unspecified type Dementia behavioral disturbance: with behavioral disturbance Qualified Code(s): F03.91 - Unspecified dementia with behavioral disturbance (6) UTI Current Visit: Yes Status: Acute - Plan PLAN: Continue with current plan of care as mentioned below: 1. Psych eval; [facility] placement 2. Seroquel 50 mg q.h.s. 3. Lexapro 10 mg daily 4. Continue antibiotic therapy; change to oral antibiotics 5. Strict blood pressure control 6. GI and DVT prophylaxis
[2021-06-17] MEDS ORDERED: METOPROLOL TAR 25 MG TAB PO SCH (06:00)
[2021-06-17 07:34] LABS: Magnesium 2.1 mg/dL (1.8-2.4); Potassium 3.4 mmol/L (3.5-5.1)
--- NOTE | 2021-06-17 08:59 | P.DS ---
Admission Date: 06/14/21 Discharge Date: 06/17/21 Primary Care Provider: unknown Disposition: ROUTINE DISCHARGE Discharge Condition: GOOD Reason for Admission: fall, weakness Consultations: Cardiology-Dr. Cast Procedures: CT Head.Neck/Chest/Ab/Pelvis: COMPARISON: None. TECHNIQUE: Axial [address] head images were obtained. Axial [address] cervical spine images were obtained with sagittal and coronal reconstruction images reviewed. During dynamic enhancement of 100mL non-ionic contrast, axial 5 mm images of the chest, abdomen and pelvis were obtained. All CT scans are performed using dose optimization technique as appropriate and may include automated exposure control or mA/KV adjustment according to patient size. FINDINGS: No intracranial hemorrhage, mass or edema. No midline shift or abnormal fluid collection. Mastoid aircells and paranasal sinuses are clear. No skull fracture. No acute fracture or traumatic malalignment of the cervical spine is identified. Multilevel cervical spondylosis is noted. In particular, there is pannus formation at C1-C2 and varying degrees of neural foraminal narrowing. There is likely mild central spinal stenosis at the C5-[address] chest shows no pneumothorax, pulmonary contusion or pleural fluid collection. No mediastinal hematoma and the aorta and pulmonary arteries are unremarkable. No chest will mass or abnormal axillary finding. No displaced rib fracture or other significant bony finding. Coronary artery calcifications. Small pericardial effusion. CT abdomen and pelvis show no injury to solid abdominal viscera. Cholecystectomy. No bowel injury or significant finding. No free air, free fluid or abnormal stranding. Renal scarring bilaterally. No hydronephrosis. Hysterectomy. Diverticulosis without diverticulitis. Abdominal aortic atherosclerosis. T12 compression deformity is unchanged since 06/07/2021. Manubrial deformitie is unchanged. Remote left anterior rib fractures. IMPRESSION: No evidence of significant trauma to the head or neck. No evidence of significant trauma to the chest, abdomen, or pelvis. 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 Patient presented with fall, dizziness. She also reported some atypical chest pain and shortness of breath. No mention of nausea, vomiting noted. Patient was admitted for further evaluation. Patient under a great deal of stress. Hospital Course: Patient presented with multiple complaints including fall, dizziness, atypical chest pain and shortness of breath. Patient was recently discharged for UTI. Patient was readmitted for further evaluation and treatment. Patient was seen by cardiology. No intervention required. At discharge cardiology will plan for outpatient cardiac stress test. Recommend to establish care locally with PCP to further monitor and address her conditions. Patient with underlying dementia, depression and paranoid delusions. During the course of her stay patient was evaluated. Medications were adjusted for better control. Patient back to baseline. No need for [facility] inpatient transfer. At discharge Seroquel increased to 50 mg at bedtime. Patient will continue with her other medications including Lexapro 20 mg daily, bupropion XL 300 mg daily, and clonazepam 0.5 mg at bedtime. Recommend to establish care with psychiatry and neurology as an outpatient to further address and monitor. Patient with underlying hypertension, CAD, and hyperlipidemia. At discharge patient will continue with her current medications of Imdur 60 mg daily, metoprolol 50 mg 1 pill twice daily, Norvasc 10 mg daily, losartan 25 mg daily, aspirin 81 mg daily, and Lipitor 40 mg daily. Recommend to maintain blood pressure less than 130/80. Further adjustment can be done by her her PCP. Patient plans to establish care locally. Patient with chronic renal disease stage III. Overall stable. Recommend to recheck labBMP in 1 to 2 weeks to monitor progress. Recommend to establish care with nephrology as an outpatient to further address. Patient with recent UTI. Patient will resume antibiotics until this is completed. UTI prevention will be provided. Patient with chronic pain. At discharge patient will continue with Lyrica 150 mg daily. Patient with chronic seasonal allergies. Patient may continue with Singulair 10 mg daily. Vital Signs/Physical Exam: Temp Pulse Resp BP Pulse Ox 97.8 F 90 18 170/73 H 100 06/17/21 01:33 06/17/21 07:02 06/17/21 01:33 06/17/21 07:02 06/17/21 01:33 General: Alert, Demented HEENT: Atraumatic Neck: Supple Respiratory: Clear to auscultation bilaterally, Normal air movement Cardiovascular: Normal pulses, Regular rate/rhythm Gastrointestinal: Normal bowel sounds, No tenderness, No masses, No rebound, No guarding Musculoskeletal: No tenderness, No warmth Neurological: Normal speech, Normal strength at 5/5 x4 extr, Normal tone, Dementia Laboratory Data at Discharge: WBC 4.90 K/uL (4.3-10.9) D 06/14/21 05:37 Hgb 11.4 g/dL (12.0-15.0) L 06/14/21 05:37 Hct 33.8 % (36.0-45.0) L 06/14/21 05:37 Plt Count 265 K/uL (152-406) 06/14/21 05:37 Sodium 142 mmol/L (136-145) 06/17/21 06:59 Potassium 3.4 mmol/L (3.5-5.1) L 06/17/21 06:59 BUN 10 mg/dL (7-18) 06/17/21 06:59 Creatinine 1.03 mg/dL (0.55-1.3) 06/17/21 06:59 Glucose 95 mg/dL (74-106) 06/17/21 06:59 Phosphorus 4.0 mg/dL (2.5-4.9) 06/16/21 05:49 Magnesium 2.1 mg/dL (1.8-2.4) 06/17/21 06:59 Total Bilirubin 0.2 mg/dL (0.2-1.0) 06/14/21 05:37 AST 10 U/L (15-37) L 06/14/21 05:37 ALT 14 U/L (12-78) 06/14/21 05:37 Alkaline Phosphatase 82 U/L (45-117) 06/14/21 05:37 Triglycerides 110 mg/dL (<150) 06/14/21 05:37 Cholesterol 113 mg/dL (<200) 06/14/21 05:37 HDL Cholesterol 44 mg/dL (40-60) 06/14/21 05:37 Cholesterol/HDL Ratio 2.57 06/14/21 05:37 Home Medications: Isosorbide Mononitrate [Isosorbide Mononitrate ER] 60 mg PO DAILY 06/07/21 Losartan Potassium 25 mg PO DAILY 06/07/21 Montelukast [Singulair*] 10 mg PO DAILY 06/07/21 Pregabalin [Lyrica] 150 mg PO DAILY 06/07/21 buPROPion HCL [Bupropion Xl] 300 mg PO DAILY 06/07/21 clonazePAM [Clonazepam] 0.5 mg PO BEDTIME 06/07/21 Amlodipine [Norvasc*] 10 mg PO DAILY 06/12/21 Atorvastatin Calcium [Lipitor] 40 mg PO BEDTIME #30 tab 06/13/21 Escitalopram [Lexapro*] 20 mg PO DAILY 30 Days #30 tab 06/13/21 Quetiapine Fumarate [Seroquel] 50 mg PO BEDTIME #30 tablet 06/17/21 New Medications: Quetiapine Fumarate [Seroquel] 50 mg PO BEDTIME #30 tablet Physician Discharge Instructions: Patient presented with multiple complaints including fall, dizziness, atypical chest pain and shortness of breath. Patient was recently discharged for UTI. Patient was readmitted for further evaluation and treatment. Patient was seen by cardiology. No intervention required. At discharge cardiology will plan for outpatient cardiac stress test. Recommend to establish care locally with PCP to further monitor and address her conditions. Patient with underlying dementia, depression and paranoid delusions. During the course of her stay patient was evaluated. Medications were adjusted for better control. Patient back to baseline. No need for [facility] inpatient transfer. At discharge Seroquel increased to 50 mg at bedtime. Patient will continue with her other medications including Lexapro 20 mg daily, bupropion XL 300 mg daily, and clonazepam 0.5 mg at bedtime. Recommend to establish care with psychiatry and neurology as an outpatient to further address and monitor. Patient with underlying hypertension, CAD, and hyperlipidemia. At discharge patient will continue with her current medications of Imdur 60 mg daily, metoprolol 50 mg 1 pill twice daily, Norvasc 10 mg daily, losartan 25 mg daily, aspirin 81 mg daily, and Lipitor 40 mg daily. Recommend to maintain blood pressure less than 130/80. Further adjustment can be done by her her PCP. Patient plans to establish care locally. Patient with chronic renal disease stage III. Overall stable. Recommend to recheck labBMP in 1 to 2 weeks to monitor progress. Recommend to establish care with nephrology as an outpatient to further address. Patient with recent UTI. Patient will resume antibiotics until this is completed. UTI prevention will be provided. Patient with chronic pain. At discharge patient will continue with Lyrica 150 mg daily. Patient with chronic seasonal allergies. Patient may continue with Singulair 10 mg daily. Diet: AHA Activity: Fall precautions Followup: NONE,NONE [Primary Care Provider] - Time spent managing pt's care (in minutes): 55
[2021-06-17] MEDS ORDERED: CEFDINIR 300 MG CAP PO SCH (09:00)
[2021-06-17] MEDS ORDERED: ESCITALOPRAM 20 MG TAB PO SCH ×2 (09:00)
[2021-06-17] MEDS: ENSURE ENLIVE 237 ML CAN PO SCH (09:00)
[2021-06-17 10:07] VITALS: O2SAT 98
[2021-06-17 14:56] VITALS: BP 166/69; TEMP 97.7
[2021-06-17] MEDS ORDERED: QUETIAPINE 25 MG TAB PO SCH (21:00)
== END 2021-06-17 12:40 | disposition home or self-care (01) | DRG 885 ==
LOC: ER 17:20 → ERHOLD 20:28 → INTOOBSV 20:28 → OBSVTOIN 20:28 → 2ND 06-14 13:56 → OBSVTOIN 06-14 19:08
PROVIDERS: ADMIT Hospitalist; ATTEND Hospitalist
DX: F22 Delusional disorders (principal); G93.41 Metabolic encephalopathy; E43 Unspecified severe protein-calorie malnutrition; I50.31 Acute diastolic (congestive) heart failure; I13.0 Hypertensive heart and chronic kidney disease with heart failure and stage 1 through stage 4 chronic kidney disease, or unspecified chronic kidney disease; N39.0 Urinary tract infection, site not specified; R07.89 Other chest pain; Z68.21 Body mass index [BMI] 21.0-21.9, adult; N18.30 Chronic kidney disease, stage 3 unspecified; I25.10 Atherosclerotic heart disease of native coronary artery without angina pectoris; R42 Dizziness and giddiness; E78.5 Hyperlipidemia, unspecified; F03.90 Unspecified dementia, unspecified severity, without behavioral disturbance, psychotic disturbance, mood disturbance, and anxiety; F32.9 Major depressive disorder, single episode, unspecified; G89.29 Other chronic pain; J30.2 Other seasonal allergic rhinitis; Z91.81 History of falling; Z86.73 Personal history of transient ischemic attack (TIA), and cerebral infarction without residual deficits
CPT/HCPCS: 36415; 70450; 71260; 72125; 74177; 80048; 80053; 80061; 80076; 81003; 81015; 82947; 83605; 83735; 84100; 84132; 84145; 84439; 84443; 84484; 85025; 85610; 87040; 87077; 87086; 87088; 87186; 93005; 94760; 96365; 96366; 96372; 96374; 96375; 97112; 97116; 97161; 97165; 97530; 99284; 99285; G0378; J0360; J0696; J1170; J1650; J2405; J3475; J3486; J7030; J7040; Q9967; U0003

== ENCOUNTER 2021-06-23 11:34 | Emergency (ER) | payer OTHER ==
[2021-06-23] MEDS ORDERED: MAGNES/ALUMIN/SIMET 30ML UCUP ONE (12:54)
[2021-06-23] MEDS ORDERED: ONDANSETRON 4 MG/2 ML VIAL ONE (12:55)
[2021-06-23] MEDS ORDERED: LIDOCAINE VISCOUS 2% SOLN 15 ML UDC ONE (12:55)
[2021-06-23] MEDS ORDERED: FAMOTIDINE 20 MG/2 ML VIAL IV ONE (12:55)
--- NOTE | 2021-06-23 13:02 | RAD REPORT ---
EXAM DESCRIPTION: CTAbdomen Pelvis W Contrast - 06/23/2021 12:50 pm CLINICAL HISTORY: Abdominal pain. ABD PAIN COMPARISON: No comparisons TECHNIQUE: Biphasic CT imaging of the abdomen and pelvis was performed with 100 ml non-ionic IV cont rast. All CT scans are performed using dose optimization technique as appropriate and may include automated exposure control or mA/KV adjustment according to patient size. FINDINGS: The lung bases are clear. Too small to characterize low-density liver lesions which are statistically benign. No adrenal masses . The spleen is unremarkable. Bilateral renal scarring. Punctate stone in the right kidney. No hydron ephrosis. Atherosclerosis. Cholecystectomy. No bowel obstruction, free air, free fluid or abscess. There is nonspecific fluid within the small madeleine wel and colon. Hysterectomy. No appendicitis identified. Diverticulosis without diverticulitis. No ev idence of significant lymphadenopathy. No suspicious bony findings. Remote appearing T12 compression fracture. IMPRESSION: Diffuse fluid-filled small bowel and proximal colon may represent a gastroenteritis. No bowel obstruction. No other acute findings identified.
[2021-06-23 13:05] LABS: Absolute Lymphocytes (CBC) 1.2 K/uL (0.7-4.9); Basophils % 0.7 % (0-1.3); Hematocrit 31.9 % (36.0-45.0); Lymphocytes % 16.5 % (15.3-44.8); MPV 8.4 fL (7.6-11.3); RBC Red Blood Cell Count 3.51 M/uL (3.86-4.86)
[2021-06-23 13:22] LABS: Albumin 3.5 g/dL (3.4-5.0); Bilirubin Direct 0.1 mg/dL (0-0.2); Bilirubin Total 0.3 mg/dL (0.2-1.0); Potassium 4.3 mmol/L (3.5-5.1); Protein, Total 6.8 g/dL (6.4-8.2)
[2021-06-23 13:40] LABS: Urine Blood Negative (Negative); Urine Glucose Negative (Negative); Urine Protein 1+ (Negative); Urine Specific Gravity 1.015 (1.005-1.030); Urine pH 7.5 (5.0-7.0)
[2021-06-23] MEDS ORDERED: CEFTRIAXONE/SWI 1gm 1 GM/10 ML SYR ONE (14:28)
--- NOTE | 2021-06-23 15:15 | EDPHYS ---
Physician Documentation [facility] Name: Madison Cerrato Age: 80 yrs Sex: Female : 1940 Arrival Date: 06/23/2021 Time: 11:44 Bed 15 Private MD: ED Physician Chioma Savage HPI: 06/23 12:32 This 80 yrs old Female presents to ER via Wheelchair with complaints of Sore ma2 Throat, Abdominal Pain, Dizziness. 12:32 The patient presents with dysphagia. The patient describes throat pain as burning. ma2 Onset: The symptoms/episode began/occurred gradually, 1 day(s) ago. Associated signs and symptoms: Pertinent negatives cough, fever, flu-like symptoms, nausea. The patient has not experienced similar symptoms in the past. Historical: - Allergies: 12:02 No Known Allergies; kg - PMHx: 12:02 Congestive heart failure; CVA; diabetes mellitus; Hypertensive disorder; kidney disease;kg - PSHx: 12:02 Cholecystectomy; kg - Immunization history:: Adult Immunizations up to date, Client reports receiving the 2nd dose of the Covid vaccine, Date received: January 2021. - Social history:: Smoking status: Patient denies any tobacco usage or history of. - Family history:: not pertinent. ROS: 12:32 Constitutional: Negative for fever, chills, and weight loss. ma2 12:32 All other systems are negative. Exam: 12:32 Constitutional: This is a well developed, well nourished patient who is awake, alert, ma2 and in no acute distress. Head/Face: Normocephalic, atraumatic. Eyes: Pupils equal round and reactive to light, extra-ocular motions intact. Lids and lashes normal. Conjunctiva and sclera are non-icteric and not injected. Cornea within normal limits. Periorbital areas with no swelling, redness, or edema. ENT: Nares patent. No nasal discharge, no septal abnormalities noted. Tympanic membranes are normal and external auditory canals are clear. Oropharynx with no redness, swelling, or masses, exudates, or evidence of obstruction, uvula midline. Mucous membranes moist. Neck: Trachea midline, no thyromegaly or masses palpated, and no cervical lymphadenopathy. Supple, full range of motion without nuchal rigidity, or vertebral point tenderness. No Meningismus. Chest/axilla: Normal chest wall appearance and motion. Nontender with no deformity. No lesions are appreciated. Cardiovascular: Regular rate and rhythm with a normal S1 and S2. No gallops, murmurs, or rubs. Normal PMI, no JVD. No pulse deficits. Respiratory: Lungs have equal breath sounds bilaterally, clear to auscultation and percussion. No rales, rhonchi or wheezes noted. No increased work of breathing, no retractions or nasal flaring. Abdomen/GI: Soft, non-tender, with normal bowel sounds. No distension or tympany. No guarding or rebound. No evidence of tenderness throughout. Skin: Warm, dry with normal turgor. Normal color with no rashes, no lesions, and no evidence of cellulitis. MS/ Extremity: Pulses equal, no cyanosis. Neurovascular intact. Full, normal range of motion. Neuro: Awake and alert, GCS 15, oriented to person, place, time, and situation. Cranial nerves II-XII grossly intact. Motor strength 5/5 in all extremities. Sensory grossly intact. Cerebellar exam normal. Normal gait. Vital Signs: 11:59 BP 128 / 71; Pulse 79; Resp 20; Temp 98.9(O); Pulse Ox 99% on R/A; Weight 63.5 kg (R); kg Height 5 ft. 0 in. (152.40 cm); Pain 10/10; 14:10 BP 143 / 62; Pulse 64; Resp 16; Pulse Ox 100% on R/A; zb 15:28 BP 161 / 84; Pulse 62; Resp 16; Pulse Ox 100% ; zb 11:59 Body Mass Index 27.34 (63.50 kg, 152.40 cm) kg MDM: 12:32 Differential diagnosis: bronchitis, group A strep tonsillitis, laryngitis, pharyngitis, ma2 radiation. 14:58 Patient medically screened. ma2 15:14 Data reviewed: vital signs, nurses notes. Counseling: I had a detailed discussion with maLanny the patient and/or guardian regarding: the historical points, exam findings, and any diagnostic results supporting the discharge/admit diagnosis, the presence of at least one elevated blood pressure reading (>120/80) during this emergency department visit, the need for outpatient follow up. Response to treatment: the patient's symptoms have markedly improved after treatment. 06/23 12:08 Order name: Strep; Complete Time: 13:13 kg 06/23 12:23 Order name: Basic Metabolic Panel; Complete Time: 13:43 ma2 06/23 12:23 Order name: CBC with Diff; Complete Time: 13:13 ma2 06/23 12:23 Order name: Hepatic Function; Complete Time: 13:43 ma2 06/23 12:23 Order name: Lipase; Complete Time: 13:43 ma2 06/23 12:45 Order name: Throat Culture EDMS 06/23 12:23 Order name: CT Abd/Pelvis - IV Contrast Only; Complete Time: 13:13 ma2 06/23 13:39 Order name: Urine Dipstick-Ancillary; Complete Time: 13:43 EDMS 06/23 12:23 Order name: IV Saline Lock; Complete Time: 12:42 ma2 06/23 12:23 Order name: Labs collected and sent; Complete Time: 12:42 ma2 06/23 12:23 Order name: Urine Dipstick-Ancillary (obtain specimen); Complete Time: 13:49 ma2 06/23 13:13 Order name: EKG - Nurse/Tech; Complete Time: 14:04 ma2 Administered Medications: 12:41 Drug: Zofran (Ondansetron) 4 mg Route: IVP; Site: right antecubital; zb 13:48 Follow up: Response: No adverse reaction; Nausea is decreased zb 12:41 Drug: Pepcid (famotidine) 20 mg Route: IVP; Site: right antecubital; zb 13:49 Follow up: Response: No adverse reaction zb 12:42 Drug: NS 0.9% 1000 ml Route: IV; Rate: 1 bolus; Site: right antecubital; zb 15:29 Follow up: Response: No adverse reaction; IV Status: Completed infusion; IV Intake: zb 1000ml 12:42 Drug: GI Cocktail without - (Maalox Suspension 30 ml, Lidocaine Liquid 2 % 15 zb ml) Route: PO; 13:48 Follow up: Response: No adverse reaction; Marked relief of symptoms zb 14:10 Drug: Rocephin (cefTRIAXone) 1 grams Route: IV; Rate: calculated rate; Site: right zb antecubital; 15:28 Follow up: Response: No adverse reaction; IV Status: Completed infusion; IV Intake: 20mlzb Disposition Summary: 06/23/21 15:14 Discharge Ordered Location: Home ma2 Condition: Stable ma2 Diagnosis - Acute cystitis ma2 Followup: ma2 - With: Private Physician - When: Tomorrow - Reason: Continuance of care Discharge Instructions: - Discharge Summary Sheet ma2 - Urinary Tract Infection, Adult, [id number] ma2 Forms: - Medication Reconciliation Form ma2 - Thank You Letter ma2 - Antibiotic Education ma2 - Prescription Opioid Use ma2 Prescriptions: - Pepcid 20 mg Oral Tablet - take 1 tablet by ORAL route every 12 hours for 10 days; 20 tablet; Refills: 0, ma2 Product Selection Permitted - Zofran 4 mg Oral Tablet - take 1 tablet by ORAL route every 12 hours As needed; 6 tablet; Refills: 0, ma2 Product Selection Permitted - Cipro 500 mg Oral Tablet - take 1 tablet by ORAL route every 12 hours for 7 days; 14 tablet; Refills: 0, ma2 Product Selection Permitted Signatures: Dispatcher [employer] EDMS Chioma Savage MD MD ma2 Jerilyn Ley RN RN zb Graham, Kristen, RN RN kg Corrections: (The following items were deleted from the chart) 13:20 13:13 Head Brain Wo Cont+CT.RAD.BRZ ordered. EDMS EDMS 13:27 13:13 C Spine Wo Con+CT.RAD.BRZ ordered. EDMS EDMS
--- NOTE | 2021-06-23 15:15 | ER ---
Nurse's Notes [facility] Name: Madison Cerrato Age: 80 yrs Sex: Female : 1940 Arrival Date: 06/23/2021 Time: 11:44 Bed 15 Private MD: Diagnosis: Acute cystitis Presentation: 06/23 11:59 Chief complaint:. Chief complaint: Patient states: "My throat and my stomach. It feels kg like I'm swallowing razor blades." Started this morning. daughter stated she vomited x1 this morning. Coronavirus screen: Client denies travel out of the [place] in the last 14 days. At this time, unable to obtain information related to travel outside the [place] At this time, the client does not indicate any symptoms associated with coronavirus-19. Ebola Screen: Patient negative for fever greater than or equal to 101.5 degrees Fahrenheit, and additional compatible Ebola Virus Disease symptoms Patient denies exposure to infectious person. Patient denies travel to an Ebola-affected area in the 21 days before illness onset. Initial Sepsis Screen: Does the patient meet any 2 criteria? No. Patient's initial sepsis screen is negative. Does the patient have a suspected source of infection? No. Patient's initial sepsis screen is negative. Risk Assessment: Do you want to hurt yourself or someone else? Patient reports no desire to harm self or others. Onset of symptoms was June 22, 2021. 11:59 Method Of Arrival: Wheelchair kg 11:59 Acuity: JOHN 3 kg Triage Assessment: 12:03 General: Appears in no apparent distress. Behavior is calm, cooperative, appropriate kg for age. Pain: Complains of pain in abdomen and neck. EENT: Throat is pink. Historical: - Allergies: 12:02 No Known Allergies; kg - PMHx: 12:02 Congestive heart failure; CVA; diabetes mellitus; Hypertensive disorder; kidney disease;kg - PSHx: 12:02 Cholecystectomy; kg - Immunization history:: Adult Immunizations up to date, Client reports receiving the 2nd dose of the Covid vaccine, Date received: January 2021. - Social history:: Smoking status: Patient denies any tobacco usage or history of. - Family history:: not pertinent. Screenin:44 Abuse screen: Denies threats or abuse. Denies injuries from another. Nutritional zb screening: No deficits noted. Tuberculosis screening: No symptoms or risk factors identified. Fall Risk Fall in past 12 months (25 points). No secondary diagnosis (0 pts). IV access (20 points). Ambulatory Aid- None/Bed Rest/Nurse Assist (0 pts). Gait- Normal/Bed Rest/Wheelchair (0 pts) Mental Status- Oriented to own ability (0 pts). Assessment: 12:42 General: Appears in no apparent distress. uncomfortable, Behavior is calm, cooperative, zb appropriate for age. Pain: Complains of pain in neck and abdomen Quality of pain is described as burning, sharp, Aggravated by eating, drinking. Cardiovascular: Capillary refill < 3 seconds Patient's skin is warm and dry. Respiratory: Airway is patent Respiratory effort is even, unlabored, Breath sounds are clear. GI: Abdomen is round Bowel sounds present X 4 quads. Reports upper abdominal pain, nausea, vomiting. Derm: Skin is intact, is healthy with good turgor. Musculoskeletal: Range of motion: intact in all extremities. 13:00 Reassessment: CT c/o of patient attempting to throw herself down form table. notified zb ECP. 13:15 Reassessment: patient ambulated to restroom without assisted, denied dizziness, gait zb even and steady. When in restroom state down with no c/o dizziness. asked patient if it was okay to step out. patient agreed. Patient pressed call light. Found down in restroom. ECP and other nurses assisted patient back to room with wheelchair. Reassessment: patient taken to CT. 14:10 Reassessment: Patient appears in no apparent distress at this time. Patient and/or zb family updated on plan of care and expected duration. Pain level reassessed. laying in bed. daughter at bedside. guardrail up x2. 15:29 Reassessment: Patient appears in no apparent distress at this time. Patient and/or zb family updated on plan of care and expected duration. Pain level reassessed. Patient is alert, oriented x 3, equal unlabored respirations, skin warm/dry/pink. d/c instructions given. family at bedside. wheeled out by cv tech. no c/o at this time. Vital Signs: 11:59 BP 128 / 71; Pulse 79; Resp 20; Temp 98.9(O); Pulse Ox 99% on R/A; Weight 63.5 kg (R); kg Height 5 ft. 0 in. (152.40 cm); Pain 10/10; 14:10 BP 143 / 62; Pulse 64; Resp 16; Pulse Ox 100% on R/A; zb 15:28 BP 161 / 84; Pulse 62; Resp 16; Pulse Ox 100% ; zb 11:59 Body Mass Index 27.34 (63.50 kg, 152.40 cm) kg ED Course: 11:44 Patient arrived in ED. am2 12:02 Triage completed. kg 12:08 Chioma Savage MD is Attending Physician. ma2 12:30 Jerilyn Ley RN is Primary Nurse. zb 12:42 Inserted saline lock: 20 gauge in right antecubital area, using aseptic technique. zb Blood collected. 12:44 Patient has correct armband on for positive identification. Pulse ox on. NIBP on. Door zb closed. Noise minimized. 12:44 Splint/sling/ice applied as appropriate. zb 12:50 CT Abd/Pelvis - IV Contrast Only In Process Unspecified. EDMS 15:28 No provider procedures requiring assistance completed. IV discontinued, intact, zb bleeding controlled, No redness/swelling at site. Pressure dressing applied. Administered Medications: 12:41 Drug: Zofran (Ondansetron) 4 mg Route: IVP; Site: right antecubital; zb 13:48 Follow up: Response: No adverse reaction; Nausea is decreased zb 12:41 Drug: Pepcid (famotidine) 20 mg Route: IVP; Site: right antecubital; zb 13:49 Follow up: Response: No adverse reaction zb 12:42 Drug: NS 0.9% 1000 ml Route: IV; Rate: 1 bolus; Site: right antecubital; zb 15:29 Follow up: Response: No adverse reaction; IV Status: Completed infusion; IV Intake: zb 1000ml 12:42 Drug: GI Cocktail without - (Maalox Suspension 30 ml, Lidocaine Liquid 2 % 15 zb ml) Route: PO; 13:48 Follow up: Response: No adverse reaction; Marked relief of symptoms zb 14:10 Drug: Rocephin (cefTRIAXone) 1 grams Route: IV; Rate: calculated rate; Site: right zb antecubital; 15:28 Follow up: Response: No adverse reaction; IV Status: Completed infusion; IV Intake: 20mlzb Intake: 15:28 IV: 20ml; Total: 20ml. zb 15:29 IV: 1000ml; Total: 1020ml. zb Outcome: 15:14 Discharge ordered by . rashmi 15:28 Discharged to home via wheelchair, with family. zb 15:28 Condition: stable 15:28 Discharge instructions given to patient, family, Instructed on discharge instructions, follow up and referral plans. medication usage, Demonstrated understanding of instructions, follow-up care, medications, Prescriptions given X 3. 15:30 Patient left the ED. zb Signatures: Dispatcher [employer] EDMS Bisi Lovett Mohammad, MD MD ma2 Brown, Zipporah, RN RN zb Graham, Kristen, RN RN kg Corrections: (The following items were deleted from the chart) 12:07 11:59 Chief complaint: Patient states: "My throat and my head hurts. It feels like I'm kg swallowing razor blades." Started this morning. daughter stated she vomited x1 this morning. kg
[2021-06-23 15:39] VITALS: TEMP 98.9
[2021-06-23 15:40] VITALS: O2SAT 100
[2021-06-23 15:42] VITALS: BP 161/84
--- NOTE | 2021-06-27 12:43 | EKG ---
Test Date: 2021-06-23 Test Time: 13:59:58 [employer]: PRIYA MEASUREMENT RESULTS: Intervals: Rate: 64 NJ: 174 QRSD: 128 QT: 524 QTc: 540 [place]: P: 70 NJ: 174 QRS: -27 T: 62 INTERPRETIVE STATEMENTS: Normal sinus rhythm Right bundle branch block Abnormal ECG Compared to ECG 06/13/2021 19:54:40 No significant changes Electronically Signed On 06-27-21 12:38:01 CDT by Sunny Cast
== END 2021-06-23 15:30 | disposition home or self-care (01) ==
LOC: ER 11:34
DX: N30.00 Acute cystitis without hematuria (principal); I10 Essential (primary) hypertension
CPT/HCPCS: 96365; 96361; 87070; 85025; 80048; 36415; 80076; 87081; 81003; 83690; 74177; 96375; 99284; Q9967; J0696; J2405; 93005

== ENCOUNTER 2021-08-13 01:44 | Emergency (ER) | payer OTHER ==
--- OUTSIDE RECORDS SUMMARY | 2021-08-13 01:48 | XMS REPORT | Continuity of Care Document ---
:1940 Author Organization [facility] t Address [address] [place] [address] Care Team Providers Name Role Phone Ravi THEODORE Primary Care Physician João THEODORE Attending Clinician Payers Payer Name Policy Type Policy Effective Date Expiration Date Sour ce Number [employer] OF [id number] 2021 [facility] [place] MEDICARE 00:00:00 [facility] [id number]/ 12/2020-[id number], [id number] Adv HMO/POS Problems Condition Condition Condition Status Onset Resolution Last Treating Co mments Source Name Details Category Date Date Treatment Clinician Date Contusion Contusion Disease Active Uni vers of left of left 8-20 ity of great toe great toe 00:00: Shellie s with with 00 Medical damage to damage to Bran ch nail, nail, initial initial encounter encounter Arthritis, Arthritis, Disease Active U nivers multiple multiple 8-20 ity of joint joint 00:00: [place] involvemen involvemen 00 Me dical t t Branch Non Non Disease Active Univers compliance compliance 8-20 it y of with with 00:00: [facility] 00 Medical treatment treatment Bran ch Diabetic Diabetic Disease Active Unive rs eye exam eye exam 8-18 ity of 00:00: [place] [address] Medical Branch Senile Senile Disease Active Univers osteoporos osteoporos 8-18 it y of is is 00:00: [place] 00 Medical Branch Need for Need for Disease Active Unive rs 23-polyval 23-polyval 8-18 it y of ent ent 00:00: [place] pneumococc pneumococc 00 Me dical al al Branch polysaccha polysaccha ride ride vaccine vaccine Recurrent Recurrent Disease Active Uni vers UTI UTI 8-13 ity of 00:00: [place] 00 Medical Branch Cystitis Cystitis Disease Active Unive rs 8-13 ity of 00:00: [place] 00 Medical Branch Dysuria Dysuria Disease Active Univers 8-13 ity of 00:00: [place] 00 Medical Branch Lower Lower Disease Active Univers abdominal abdominal 8-13 ity of pain pain 00:00: [place] 00 Medical Branch Alzheimer' Alzheimer' Disease Active U nivers s disease s disease 8-13 ity of of other of other 00:00: [place] onset onset 00 Medical without without Branch behavioral behavioral disturbanc disturbanc e e 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 [place] open[place] openia 00 Medical [facility] Pyelonephr Pyelonephr Disease Active U nivers itis itis 8-13 ity of 00:00: [place] 00 Medical Branch Gastroesop Gastroesop Disease Active U nivers hageal hageal 8-13 ity of reflux reflux 00:00: [place] disease disease 00 Medical without without Branch esophagiti esophagiti s s Primary Primary Disease Active Univers insomnia insomnia 8-13 ity of 00:00: [place] 00 [facility] Disease Active Unive rs discharge discharge 8-13 ity of follow-up [place]up [place] Depression Depression Disease Active U nivers , major, , major, 8-13 ity of recurrent, recurrent, [place] moderate moderate 00 Medica l Branch Anxiety, Anxiety, Disease Active Unive rs generalize generalize 8-13 it y of d d 00:00: [place] 00 Medical Branch Chronic Chronic Disease Active Univers anemia anemia 8-13 ity of 00:00: [place] 00 Medical Branch 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, loss, 00:00: [place] bilateral bilateral 00 [facility] Branch Dyslipidem Dyslipidem Disease Active U nivers ia ia 8-13 ity of 00:00: [place] 00 Medical Branch Essential Essential Disease Active Uni vers hypertensi hypertensi 8-13 it y of on on 00:00: [place] 00 Medical Branch Chronic Chronic Disease Active Univers midline midline 8-13 ity of low back low back 00:00: [place] pain pain 00 Medical without without Branch sciatica sciatica Urothelial Urothelial Disease Active U nivers lesion lesion 8-13 ity of 00:00: [place] 00 Medical Branch Diverticul Diverticul Disease Active U nivers osis osis 8-13 ity of 00:00: [place] [facility] Branch Renal Renal Disease Active Univers scarring scarring 8-13 ity of 00:00: [place] 00 [facility] Branch 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 8-13 it y of athy athy 00:00: [place] associated associated 00 Me dical with type with type Bran ch 2 diabetes 2 diabetes mellitus mellitus 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 00:00: [place] 00 [facility] Branch 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 8-13 ity of diabetes diabetes 00:00: [place] mellitus mellitus 00 Medica l with with Branch diabetic diabetic nephropath nephropath y, without y, without long-term long-term current current use of use of insulin insulin RLS RLS Disease Active Univers (restless (restless 8-13 ity of legs legs 00:00: [place] syndrome) syndrome) 00 [facility] Branch Abnormal Abnormal Disease Active Unive rs liver liver 8-13 ity of enzymes enzymes 00:00: [place] 00 [facility] Branch CKD stage CKD stage Disease Active Uni vers G3a/A2, G3a/A2, 8-13 ity of GFR 45-59 GFR 45-59 00:00: [place] and and 00 Medical albumin albumin Branch creatinine creatinine ratio ratio 30-299 30-299 mg/g mg/g Allergies, Adverse Reactions, Alerts Allergy Allergy Status Severity Reaction(s) Onset Inactive Treating Comm ents Source Name Type Date Date Clinician Codeine Propensi Active Dizziness Univ ers ty to 04 ity of adverse 00:00: [place] reaction 00 Medical s Branch Social History Social Habit Start Date Stop Date Quantity Comments Source Exposure to Not sure [facility] SARS-CoV-2 [facility] (event) [place] Tobacco use and 2021-07-28 2021-07-28 Never used Universit y of exposure 00:00:00 00:00:00 [facility] Alcohol intake 2021-07-28 2021-07-28 Lifetime [facility] of 00:00:00 00:00:00 non-drinker [facility] (finding) [place] Sex [birth year] At [birth year] Universit y of 00:00:00 00:00:00 [facility] Smoking Status Start Date Stop Date Source Never smoker [facility] Medications Ordered Filled Start Stop Current Ordering Indication Dosage Frequency Signature Comments Components Source Medication Medication Date Date Medication? Clinician (SIG) Name Name cefTRIAXone 2020- No [id number] 1000mg Univers (ROCEPHIN) 07-28 ity of injection 17:15: 16:08 [place] 1,000 mg 00 :00 [facility] cefTRIAXone 2020- No [id number] 1000mg 1,000 mg, Univers (ROCEPHIN) 07-28 Intramuscu it y of injection 17:15: 16:08 [place], ONCE, [place] 1,000 mg 00 :00 1 dose, [facility] Fri Branch 07/28/21 at 1215, NITA
Re ason for Anti-Infec tive: Empiric Therapy for Suspected Infection< br>Empiric Therapy Site: Urine
D uration of therapy: 72 hours buPROPion Yes 300mg Take 300 Uni vers XL 300 mg 8-27 mg by ity of 24 hr 15:17: mouth [place] tablet 13 daily. Medical Branch montelukast Yes 10mg Take 10 mg Univers 10 mg 8-27 by mouth. ity of tablet 15:17: [place] 13 Medical Branch estradioL 2 2020- Yes [id number] 2mg Insert 1 Univers mg (7.5 mcg 07-28 Each into it y of /24 hour) 00:00: 04:59 vagina [place] vaginal 00 :00 every 3 Medical ring (three) Branch months for 1 dose. follow package directions cephALEXin Yes [id number] 500mg Take 1 Univers (KEFLEX) 8-24 capsule by ity o f 500 mg 00:00: mouth 2 [place] capsule 00 (two) Medical times Branch daily. atorvastati Yes [id number] 20mg Take 1 Univers n 20 mg 8-20 tablet by ity of tablet 00:00: mouth at [place] 00 bedtime. Medical Branch IRON 325 mg Yes [id number] 325mg Take 1 Univers (65 mg 8-20 tablet by ity of iron) 00:00: mouth 2 [place] tablet 00 (two) Medical times Branch daily. traMADoL 50 2020- Yes [id number] 50mg Take 1 Uni vers mg tablet 8-20 08-28 tablet by ity of 00:00: 04:59 mouth [place] 00 :00 every 6 Medical (six) Branch hours as needed for Pain (scale 4-6) for up to 7 days. Indication s: acute pain traZODone Yes [id number] 50mg Take 1 Uni vers 50 mg 8-19 tablet by ity of tablet 00:00: mouth at [place] 00 bedtime. Medical Branch Diclofenac Yes [id number] Apply to Univers Sodium 8-18 103 area(s) 4 ity of (VOLTAREN) 00:00: (four) [place] 1 % gel 00 times Medical daily. Branch Apply 4 g qid isosorbide Yes [id number] 60mg Take 1 U nivers mononitrate 8-13 tablet by ity of 60 mg 24 hr 00:00: mouth [place] tablet 00 daily. Medical Branch amLODIPine Yes [id number] 10mg Take 1 U nivers 10 mg 8-13 tablet by ity of tablet 00:00: mouth [place] 00 daily. Medical Branch losartan 25 Yes [id number] 25mg Take 1 Univers mg tablet 8-13 tablet by ity o f 00:00: mouth [place] 00 daily. Medical Branch escitalopra Yes [id number] 20mg Take 1 Univers m oxalate 8-13 tablet by ity o f 20 mg 00:00: mouth [place] tablet 00 daily. Medical Branch pregabalin Yes [id number] 150mg Take 1 Univers 150 mg 8-13 capsule by ity of capsule 00:00: mouth at [place] [address] bedtime. Medical Branch melatonin 3 2020- Yes [id number] 3mg Take 1 U nivers mg tablet 8-13 tablet by ity o f 00:00: mouth at [place] [address] bedtime. Medical Branch Omeprazole Yes [id number] 20mg Take 1 Univers 20 mg 8-13 tablet by ity of tablet 00:00: mouth 2 [place] (two) Medical times Branch daily. Vital Signs Vital Name Observation Time Observation Value Comments Source Systolic blood 2021-07-28 15:42:00 169 mm[Hg] Univer [facility]ity [facility] Diastolic blood 2021-07-28 15:42:00 69 [facility]Hg[facility] 2021-07-28 15:15:00 67 /min [facility] Body temperature 2021-07-28 15:15:00 36.5 [place] [facility] Respiratory rate 2021-07-28 15:15:00 18 /min [facility] Body height 2021-07-28 15:15:00 148.6 cm [facility] Body weight 2021-07-28 15:15:00 56.246 kg [facility] BMI 2021-07-28 15:15:00 25.47 kg/m2 [facility] Procedures Procedure Date / Time Performed Performing Clinician Sourc e POCT URINALYSIS W/O 2021-07-28 00:00:00 Meseret Moyer [facility] SPECIFIC GRAVITY [facility] Encounters Start End Encounter Admission Attending Care Care Encounter Source Date/Time Date/Time Type Type Clinicians Facility Department ID 2021-07-28 2021-07-28 Office João [facility] [id number] Univers 09:40:37 12:11:09 Visit Meseret Pereira [id number] meghan [place] [id number] Shellie Lewisio [id number] [address] Results Test Description Test Time Test Comments Results Result Comments Source POCT URINALYSIS W/O SPECIFIC GRAVITY 2021-07-28 15:32:00 Test Item Value Reference Range Interpretation Comme nts POCT PH U (test code = 3254) 5 mg/dl 5-8 POCT U LEUK EST (test code = 3263) 1+ Negative - Negative POCT U NIT (test code = 3262) Negative Negative - Negative POCT U PROT (test code = 3259) 1+ Negative - Negative POCT U GLU (test code = 3256) Negative Negative - Negative POCT U KETONE (test code = 3258) Negative Negative - Negative POCT U BLD (test code = 3257) N/A Negative - Negative [facility]
[2021-08-13 03:26] LABS: Urine Blood Trace-intact (Negative); Urine Glucose Negative (Negative); Urine Protein 2+ (Negative); Urine pH 7.5 (5.0-7.0)
[2021-08-13 04:23] LABS: Urine Bacteria <20 /HPF (<20); Urine RBC <5 /HPF (NONE SEEN)
--- NOTE | 2021-08-13 05:33 | EDPHYS ---
Physician Documentation [facility] Name: Madison Cerrato Age: 80 yrs Sex: Female : 1940 Arrival Date: 08/13/2021 Time: 01:49 Bed 15 Private MD: ED Physician Kelvin Carrillo Historical: - Allergies: 08/13 02:00 Codeine; bs2 - Home Meds: 01:57 losartan 25 mg oral tab 1 tab once daily [Active]; trazodone 50 mg Oral tab [Active]; bs2 isosorbide mononitrate 60 mg Oral Tb24 [Active]; atorvastatin 20 mg oral tab 1 tab once daily [Active]; amlodipine 10 mg tab 1 tab once daily [Active]; escitalopram oxalate 20 mg oral tab [Active]; omeprazole 20 mg Oral cpDR 1 cap 2 times per day [Active]; pregabalin 150 mg Oral cap [Active]; - PMHx: 01:55 Congestive heart failure; CVA; diabetes mellitus; Hypertensive disorder; kidney disease;bs2 02:00 Alzheimer's disease; Dementia; Hypercholesterolemia; bs2 - PSHx: 01:55 Cholecystectomy; bs2 02:00 knee; bs2 - Immunization history:: family will bring card pt is vaccinated . - Social history:: Smoking status: Patient denies any tobacco usage or history of. - Immunization history: Last tetanus immunization: unknown. Vital Signs: 01:49 BP 186 / 74; Pulse 79; Resp 15; Temp 98.6; Pulse Ox 98% ; Weight 58.97 kg; Height 5 ft. bs2 0 in. (152.40 cm); Pain 5/10; 02:00 BP 179 / 70; Pulse 77; Resp 15; Pulse Ox 100% ; bs2 02:30 BP 175 / 71; Pulse 78; Resp 15; Pulse Ox 100% ; bs2 03:00 BP 170 / 71; Pulse 75; Resp 15; Pulse Ox 100% on R/A; bs2 03:30 BP 174 / 71; Pulse 74; Resp 16; Temp 98.6; Pulse Ox 100% on R/A; bs2 04:00 BP 160 / 72; Pulse 74; Resp 15; Temp 98.6; Pulse Ox 100% ; bs2 04:30 BP 162 / 62; Pulse 80; Resp 16; Pulse Ox 100% ; bs2 05:00 BP 162 / 65; Pulse 75; Resp 16; Pulse Ox 100% ; bs2 05:30 BP 164 / 64; Pulse 75; Resp 16; Pulse Ox 100% on R/A; bs2 06:00 BP 149 / 67; Pulse 75; Resp 19; Temp 98.6; Pulse Ox 100% on R/A; bs2 06:30 BP 155 / 67; Pulse 75; Resp 16; Temp 98.6; Pulse Ox 100% ; Pain 0/10; bs2 01:49 Body Mass Index 25.39 (58.97 kg, 152.40 cm) bs2 [place] Coma Score: 01:50 Eye Response: spontaneous(4). Verbal Response: oriented(5). Motor Response: obeys bs2 commands(6). Total: 15. Trauma Score (Adult): 01:50 Eye Response: spontaneous(1); Verbal Response: oriented(1); Motor Response: obeys bs2 commands(2); Systolic BP: > 89 mm Hg(4); Respiratory Rate: 10 to 29 per min(4); Terrell Score: 15; Trauma Score: 12 MDM: 05:32 Patient medically screened. tw4 08/13 03:26 Order name: Urine Dipstick-Ancillary; Complete Time: 05:34 EDMS 08/13 05:34 Interpretation: Normal except: UKET 1+; UBLD Trace-intact; UPH 7.5; UPROT 2+; UESTR tw4 Trace. 08/13 03:29 Order name: Urine Microscopic Only; Complete Time: 05:34 ea 08/13 02:34 Order name: CT Head C Spine tw4 Administered Medications: 05:35 CANCELLED (Physician Discretion): Rocephin (cefTRIAXone) 1 grams IM once tw4 Disposition Summary: 08/13/21 05:32 Discharge Ordered Location: Home tw4 Problem: new tw4 Symptoms: have improved tw4 Condition: Stable tw4 Diagnosis - Contusion of other part of head tw4 Followup: tw4 - With: Private Physician - When: Upon discharge from the Emergency Department - Reason: Recheck today's complaints, Continuance of care, Re-evaluation by your physician Discharge Instructions: - Discharge Summary Sheet tw4 - Contusion tw4 - Head Injury, Adult tw4 - Laceration Care, Adult tw4 - Dementia tw4 - Dementia Caregiver Guide tw4 Forms: - Medication Reconciliation Form tw4 - Thank You Letter 4 - Antibiotic Education 4 - Prescription Opioid Use Signatures: Dispatcher [employer] Kelvin Story MD MD tw4 Ingrid Fan RN RN bs2 Corrections: (The following items were deleted from the chart) 05:35 05:34 Rocephin (cefTRIAXone) 1 grams IM once ordered.
--- NOTE | 2021-08-13 05:33 | ER ---
Nurse's Notes [facility] Name: Madison Cerrato Age: 80 yrs Sex: Female : 1940 Arrival Date: 08/13/2021 Time: 01:49 Bed 15 Private MD: Diagnosis: Contusion of other part of head Presentation: 08/13 01:49 Chief complaint: EMS states: fall into rock fireplace, abrasions to arm and LT knee, bs2 swelling to Lt side of face, hematoma to back of head with small lack, no LOC. Initial Sepsis Screen: Does the patient meet any 2 criteria? No. Patient's initial sepsis screen is negative. Does the patient have a suspected source of infection? No. Patient's initial sepsis screen is negative. Risk Assessment: Do you want to hurt yourself or someone else? Patient reports no desire to harm self or others. Onset of symptoms was August 13, 2021. 01:49 Method Of Arrival: EMS: [facility] bs2 01:49 Acuity: JOHN 2 bs2 01:50 Care prior to arrival: None. Mechanism of Injury: fall into rock fireplace in home. bs2 Trauma event details: Injury occurred in the [facility], Injury occurred: at home. Injury occurred: August 13, 2021. 02:00 Ebola Screen: No symptoms or risks identified at this time. bs2 02:00 Coronavirus screen: At this time, the client does not indicate any symptoms associated bs2 with coronavirus-19. Triage Assessment: 01:55 General: Appears in no apparent distress. distressed, comfortable, Behavior is calm, bs2 cooperative. Pain: Complains of pain in scalp. Trauma Activation: Physician: ED Physician; Name: Dr Carrillo; Notified At: 01:50; Arrived At: 01:55 Physician: General Surgeon; Name: ; Notified At: 01:50; Arrived At: Physician: Radiology; Name: ; Notified At: 01:50; Arrived At: 02:05 Physician: Respiratory; Name: ; Notified At: 01:50; Arrived At: Physician: Lab; Name: ; Notified At: 01:50; Arrived At: Historical: - Allergies: 02:00 Codeine; bs2 - Home Meds: 01:57 losartan 25 mg oral tab 1 tab once daily [Active]; trazodone 50 mg Oral tab [Active]; bs2 isosorbide mononitrate 60 mg Oral Tb24 [Active]; atorvastatin 20 mg oral tab 1 tab once daily [Active]; amlodipine 10 mg tab 1 tab once daily [Active]; escitalopram oxalate 20 mg oral tab [Active]; omeprazole 20 mg Oral cpDR 1 cap 2 times per day [Active]; pregabalin 150 mg Oral cap [Active]; - PMHx: 01:55 Congestive heart failure; CVA; diabetes mellitus; Hypertensive disorder; kidney disease;bs2 02:00 Alzheimer's disease; Dementia; Hypercholesterolemia; bs2 - PSHx: 01:55 Cholecystectomy; bs2 02:00 knee; bs2 - Immunization history:: family will bring card pt is vaccinated . - Social history:: Smoking status: Patient denies any tobacco usage or history of. - Immunization history: Last tetanus immunization: unknown. Screenin:50 Abuse screen: Denies threats or abuse. Denies injuries from another. Tuberculosis bs2 screening: No symptoms or risk factors identified. 02:00 Nutritional screening: No deficits noted. bs2 02:00 Fall Risk No fall in past 12 months (0 pts). Mental Status- Overestimates/Forgets bs2 Limitations (15 pts.). Primary Survey: 01:50 NO uncontrolled hemorrhage observed. A: Airway: patent. Breathing/Chest: Respiratory bs2 pattern: regular, Respiratory effort: spontaneous, Chest inspection: symmetrical rise and fall of the chest. Circulation: Pulses: palpable right radial artery, right posterior tibial artery, right dorsalis pedis artery, left radial artery, left posterior tibial artery, left dorsalis pedis artery, left carotid pulse and right carotid pulse. Disability Alert. Exposure/Environment: There is no evidence of uncontrolled external bleeding. Obvious injury(ies) are noted at this time: hematoma and laceraction to back of scalp. Reassessment Airway Airway Patent Breathing/Chest Respiratory pattern Regular Respiratory effort Spontaneous Circulation Pulses Palpable Disability Alert. Assessment: 01:50 General: Appears in no apparent distress. uncomfortable, slender, well groomed, well bs2 developed, Behavior is cooperative. Pain: Complains of pain in scalp Pain currently is 4 out of 10 on a pain scale. Neuro: Level of Consciousness is awake, alert, obeys commands, Oriented to person, place, time, pt has Alzheimer's . EENT: No deficits noted. Cardiovascular: No deficits noted. Respiratory: No deficits noted. GI: No deficits noted. : No deficits noted. No signs and/or symptoms were reported regarding the genitourinary system. Derm: Wound noted scalp and left knee. Musculoskeletal: No deficits noted. No signs and/or symptoms reported regarding the musculoskeletal system. 02:00 Reassessment: Patient appears in no apparent distress at this time. Patient is alert, bs2 oriented x 3, equal unlabored respirations, skin warm/dry/pink. Patient denies pain at this time. Vital Signs: 01:49 BP 186 / 74; Pulse 79; Resp 15; Temp 98.6; Pulse Ox 98% ; Weight 58.97 kg; Height 5 ft. bs2 0 in. (152.40 cm); Pain 5/10; 02:00 BP 179 / 70; Pulse 77; Resp 15; Pulse Ox 100% ; bs2 02:30 BP 175 / 71; Pulse 78; Resp 15; Pulse Ox 100% ; bs2 03:00 BP 170 / 71; Pulse 75; Resp 15; Pulse Ox 100% on R/A; bs2 03:30 BP 174 / 71; Pulse 74; Resp 16; Temp 98.6; Pulse Ox 100% on R/A; bs2 04:00 BP 160 / 72; Pulse 74; Resp 15; Temp 98.6; Pulse Ox 100% ; bs2 04:30 BP 162 / 62; Pulse 80; Resp 16; Pulse Ox 100% ; bs2 05:00 BP 162 / 65; Pulse 75; Resp 16; Pulse Ox 100% ; bs2 05:30 BP 164 / 64; Pulse 75; Resp 16; Pulse Ox 100% on R/A; bs2 06:00 BP 149 / 67; Pulse 75; Resp 19; Temp 98.6; Pulse Ox 100% on R/A; bs2 06:30 BP 155 / 67; Pulse 75; Resp 16; Temp 98.6; Pulse Ox 100% ; Pain 0/10; bs2 01:49 Body Mass Index 25.39 (58.97 kg, 152.40 cm) bs2 [place] Coma Score: 01:50 Eye Response: spontaneous(4). Verbal Response: oriented(5). Motor Response: obeys bs2 commands(6). Total: 15. Trauma Score (Adult): 01:50 Eye Response: spontaneous(1); Verbal Response: oriented(1); Motor Response: obeys bs2 commands(2); Systolic BP: > 89 mm Hg(4); Respiratory Rate: 10 to 29 per min(4); [place] Score: 15; Trauma Score: 12 ED Course: 01:49 Patient arrived in ED. bs2 01:50 Patient has correct armband on for positive identification. Bed in low position. Call bs2 light in reach. Side rails up X 1. 01:50 Patient maintains SpO2 saturation greater than 95% on room air. bs2 01:55 Triage completed. bs2 01:55 Kelvin Carrillo MD is Attending Physician. tw4 01:55 Arm band placed on right wrist. bs2 02:00 Pulse ox on. NIBP on. Noise minimized. Lights dimmed. Warm blanket given. Pillow given. bs2 02:00 cleaned wound on back Lt side of head. bs2 02:00 Patient did not have IV access during this emergency room visit. bs2 02:00 Thermoregulation: warm blanket given to patient. bs2 02:41 Ingrid Fan, RN is Primary Nurse. bs2 03:11 CT Head C Spine In Process Unspecified. EDMS 03:29 Urine Microscopic Only Sent. ea Administered Medications: 05:35 CANCELLED (Physician Discretion): Rocephin (cefTRIAXone) 1 grams IM once tw4 Intake: 06:53 PO: 0ml; Total: 0ml. bs2 Outcome: 05:32 Discharge ordered by . tw4 06:52 Patient's length of stay in the Emergency Department was greater than 2 hours. bs2 Patient's length of stay was extended due to staffing issues within the emergency department. 06:53 Discharged to home ambulatory, with family. bs2 06:53 Condition: improved 06:53 Discharge instructions given to patient, family, Instructed on discharge instructions, follow up and referral plans. wound care, Demonstrated understanding of instructions, follow-up care, wound care. 06:58 Patient left the ED. bs2 Signatures: Dispatcher [employer] EDMS Rachael Phoenix RN RN ea Kelvin Carrillo MD MD tw4 Ingrid Fan RN RN bs2
[2021-08-13 07:18] VITALS: TEMP 98.6
[2021-08-13 07:19] VITALS: O2SAT 100
[2021-08-13 07:32] VITALS: BP 155/67
--- NOTE | 2021-08-13 21:50 | RAD REPORT ---
EXAM DESCRIPTION: CT Head and Cervical Spine Without Intravenous Contrast CLINICAL HISTORY: The patient is 80 years old and is Female; trauma TECHNIQUE: Axial computed tomography images of the head/brain and cervical spine without intravenous contrast. Sagittal and coronal reformatted images were created and reviewed. This CT exam was pe rformed using one or more of the following dose reduction techniques: automated exposure control, a djustment of the mA and/or kV according to patient size, and/or use of iterative reconstruction techn ique. COMPARISON: CT head without contrast May 31, 2021. FINDINGS: Brain: Unremarkable. No hemorrhage. No significant white matter disease. No edema. Ventricles: Unremarkable. No ventriculomegaly. Skull: No acute fracture. Sinuses: Unremarkable as visualized. No acute sinusitis. Mastoid air cells: Unremarkable as visualized. No mastoid effusion. Vertebrae: No acute cervical spine fracture or subluxation. Discs/spinal canal/neural foramina: Disc space narrowing with degenerative endplate changes at C5 -C6. Fusion of the posterior elements on the right at C3-C4. Moderate left neural foraminal narrowing at C4-C5. Disc osteophyte complex at C4-C5 and C5-C6. Moderate spinal canal narrowing at C5-C6. Soft tissues: Left posterior scalp swelling. IMPRESSION: 1. No acute intracranial abnormality. 2. No acute cervical spine fracture or subluxation. Electronically signed by: Ag Godinez MD 08/13/2021 3:24 AM CDT Due to temporary technical issues with the PACS/Fluency reporting system, reports are being signed by the in house radiologists without review as a courtesy to insure prompt reporting. The interpreting radiologist is fully responsible for the content of the report.
== END 2021-08-13 06:58 | disposition home or self-care (01) ==
LOC: ER 01:44
DX: S00.83XA Contusion of other part of head, initial encounter (principal); W18.09XA Striking against other object with subsequent fall, initial encounter; Y92.009 Unspecified place in unspecified non-institutional (private) residence as the place of occurrence of the external cause; I10 Essential (primary) hypertension; I50.9 Heart failure, unspecified; G30.9 Alzheimer's disease, unspecified; F02.80 Dementia in other diseases classified elsewhere, unspecified severity, without behavioral disturbance, psychotic disturbance, mood disturbance, and anxiety; Z88.5 Allergy status to narcotic agent
CPT/HCPCS: 70450; 72125; 81003; 81015; 99284

== ENCOUNTER 2021-10-02 15:11 | Emergency (ER) | payer OTHER ==
--- NOTE | 2021-10-02 19:15 | ER ---
Nurse's Notes [facility] Name: Madison Cerrato Age: 80 yrs Sex: Female : 1940 Arrival Date: 10/02/2021 Time: 15:15 Bed Waiting Private MD: Diagnosis: Presentation: 10/02 15:43 Chief complaint: Patient states: Pt had an eye procedure at DR Ortega office. States vg1 had an injection in Left eye due to fluid in eye. After procedure pt states nausea and chest tightness. States 'just a little bit of difficulty catching my breath'. Coronavirus screen: Vaccine status: Client denies travel out of the [place] in the last 14 days. Ebola Screen: Patient negative for fever greater than or equal to 101.5 degrees Fahrenheit, and additional compatible Ebola Virus Disease symptoms. Initial Sepsis Screen: Does the patient meet any 2 criteria? No. Patient's initial sepsis screen is negative. Does the patient have a suspected source of infection? No. Patient's initial sepsis screen is negative. Risk Assessment: Do you want to hurt yourself or someone else? Patient reports no desire to harm self or others. Onset of symptoms was October 02, 2021. 15:43 Method Of Arrival: Wheelchair vg1 15:43 Acuity: JOHN 3 vg1 Triage Assessment: 15:46 General: Appears in no apparent distress. uncomfortable, Behavior is calm, cooperative. vg1 Pain: Complains of pain in anterior aspect of left upper chest Pain does not radiate. GI: Reports nausea. Historical: - Allergies: 15:46 Codeine; vg1 - Home Meds: 15:46 escitalopram oxalate 20 mg Oral tab [Active]; atorvastatin 20 mg Oral tab 1 tab once vg1 daily [Active]; - PMHx: 15:46 Alzheimer's disease; Congestive heart failure; CVA; Dementia; diabetes mellitus; vg1 Hypercholesterolemia; Hypertensive disorder; kidney disease; - PSHx: 15:46 Cholecystectomy; knee; vg1 - Immunization history:: Adult Immunizations up to date, Client reports receiving the 2nd dose of the Covid vaccine. - Social history:: Smoking status: Patient denies any tobacco usage or history of. Vital Signs: 15:43 BP 148 / 80; Pulse 78; Resp 16; Temp 98.3; Pulse Ox 99% ; Weight 58.97 kg; Height 5 ft. vg1 0 in. (152.40 cm); Pain 10/10; 15:43 Body Mass Index 25.39 (58.97 kg, 152.40 cm) vg1 ED Course: 15:15 Patient arrived in ED. ds1 15:46 Triage completed. vg1 15:46 Arm band placed on. vg1 Administered Medications: No medications were administered Outcome: 19:15 Eloped from waiting room, before seeing physician Time discovered patient gone: iw October 02, 2021 at 19:15 19:15 Patient left the ED. iw Signatures: Whitley Boone ds1 Juliane Balderas, RN RN iw Bonny Escobedo RN RN vg1
[2021-10-02 19:20] VITALS: BP 148/80; TEMP 98.3; O2SAT 99
--- OUTSIDE RECORDS SUMMARY | 2021-10-14 06:16 | XMS REPORT | Continuity of Care Document ---
:1940 Author Organization [facility] t Address [address] [place] [address] Care Team Providers Name Role Phone Tracy Rodrigues MD Primary Care Physician JONAH OTERO Attending Clinician Unavailable PAM WOOTEN Attending Clinician Unavailable Ambrocio Kraus Attending Clinician NERY Attending Clinician Unavailable Shanna THEODORE Attending Clinician YOLIE VILLALPANDO Attending Clinician Unavailable YOLIE VILLALPANDO Attending Clinician Unavailable KIMBERLY Attending Clinician Unavailable GIOVANNY Attending Clinician Unavailable Lashadna DONG Attending Clinician Unavailable LUIS A Attending Clinician Unavailable Payers Payer Name Policy Type Policy Number Effective Date Expiration Date S jessica HUMANA MEDICARE [id number] 2021 00:00:00 [employer] [id number] 2021 00:00:00 Problems Condition Condition Condition Status Onset Resolution Last Treating Co mments Source Name Details Category Date Date Treatment Clinician Date Contusion Contusion Disease Active Uni vers of left of left 8-20 [place] damage to damage to Bran ch nail, nail, initial initial encounter encounter Arthritis, Arthritis, Disease Active U nivers multiple multiple 8-20 ity of joint joint 00:00: [place] involvemen involvemen 00 Me dical t t Branch Non Non Disease Active Univers compliance compliance 8-20 it y of with with 00:00: [place] medical medical 00 Medical treatment treatment Bran ch Diabetic Diabetic Disease Active Unive rs eye exam eye exam 8-18 ity of 00:00: [place] 00 Medical Branch Senile Senile Disease Active Univers [...] abdominal 8-13 ity of pain pain 00:00: [place] 00 Medical Branch Alzheimer' Alzheimer' Disease Active U nivers s disease s disease 8-13 ity of of other of other 00:00: [place] onset onset 00 Medical without without Branch behavioral behavioral disturbanc disturbanc e e 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 00:00[place] open[place] 00 Medical Branch Pyelonephr Pyelonephr [...] loss, loss, 00:00: [place] bilateral bilateral 00 [facility] Dyslipidem Dyslipidem Disease Active U nivers ia ia 8-13 ity of 00:00: [place] 00 Medical Branch Essential Essential Disease Active Uni vers hypertensi hypertensi 8-13 it y of on on 00:00: [place] Medical [facility] Chronic Chronic Disease Active Univers midline midline 8-13 ity of low back low back 00:00: [place] pain pain 00 Medical without without Branch sciatica sciatica Urothelial Urothelial Disease Active U nivers lesion lesion 8-13 ity of 00:00: [place] 00 [facility] Branch Diverticul Diverticul Disease Active U nivers osis osis 8-13 ity of 00:00: [place] 00 [facility] Branch Renal Renal Disease Active Univers scarring scarring 8-13 ity of 00:00: [place] 00 [facility] Branch 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 8-13 it y of athy athy 00:00: [place] associated associated 00 Me dical with type with type Bran ch 2 diabetes 2 diabetes mellitus mellitus 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 00:00: [place] [facility] Branch 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 8-13 ity of diabetes diabetes 00:00: [place] mellitus mellitus 00 Medica l with with Branch diabetic diabetic nephropath nephropath y, without y, without long-term long-term current current use of use of insulin insulin RLS RLS Disease Active Univers (restless (restless 8-13 ity of legs legs 00:00: [place] syndrome) syndrome) 00 [facility] Branch Abnormal Abnormal Disease Active Unive rs liver liver 8-13 ity of enzymes enzymes 00:00: [place] 00 Medical Branch CKD stage CKD stage Disease Active Uni vers G3a/A2, G3a/A2, 8-13 ity of GFR 45-59 GFR 45-59 00:00: [place] and and 00 Medical albumin albumin Branch creatinine creatinine ratio ratio 30-299 30-299 mg/g mg/g Allergies, Adverse Reactions, Alerts Allergy Allergy Status Severity Reaction(s) Onset Inactive Treating Comm ents Source Name Type Date Date Clinician Taylor Propensi Active Dizziness Univ ers ty to 8-04 ity of adverse 00:00: [place] reaction 00 Medical s Branch CODEINE DRUG Active Dizziness Univer s INGREDI 804 ity of 00:00: [place] 00 Medical Branch Social History Social Habit Start Date Stop Date Quantity Comments Source Exposure to Not sure [facility] SARS-CoV-2 [facility] (event) [place] Alcohol intake 2021-10-02 2021-10-02 Lifetime University of 00:00:00 00:00:00 non-drinker [facility] (finding) [place] Tobacco use and 2021-07-21 2021-07-21 Never used Universit y of exposure 00:00:00 00:00:00 [facility] Sex Ass[birth year] At [birth year] Universit y of 00:00:00 00:00:00 [facility] Smoking Status Start Date Stop Date Source Never smoker [facility] Medications Ordered Filled Start Stop Current Ordering Indication Dosage Frequency Signature Comments Components Source Medication Medication Date Date Medication? Clinician (SIG) Name Name cefTRIAXone 2020-12- Yes 1000mg 1,000 mg, Univers (ROCEPHIN) 12-03 IV ity of 1,000 mg in 03:00: 14:59 [place], [place] NaCl 0.9% 00 :00 ONCE, 1 Medical (NS) 50 mL dose, On Branc h MINI-BAG Sat10/02/21 at 2200, Administer over 30 Minutes, 50 mL
Reas on for Anti-Infec tive: Empiric Therapy for Suspected Infection< br>Empiric Therapy Site: Urine
D uration of therapy: 72 hours cefpodoxime 2020-12- Yes [id number] 200mg Take 1 Univers 200 mg 12-02 tablet by ity of tablet 00:00: 05:59 mouth 2 [place] 00 :00 (two) Medical times Branch daily for 7 days. buPROPion Yes 300mg Take 300 Uni vers XL 300 mg 8-27 mg by ity of 24 hr 10:17: mouth [place] tablet 13 daily. Medical Branch montelukast Yes 10mg Take 10 mg Univers 10 mg 8-27 by mouth. ity of tablet 10:17: Medical Branch buPROPion Yes 300mg Take 300 Uni vers XL 300 mg 8-27 mg by ity of 24 hr 10:17: mouth [place] tablet 13 daily. Medical Branch montelukast Yes 10mg Take 10 mg Univers 10 mg 8-27 by mouth. ity of tablet 10:17: Medical Branch buPROPion Yes 300mg Take 300 Uni vers XL 300 mg 8-27 mg by ity of 24 hr 10:17: mouth [place] tablet 13 daily. Medical Branch montelukast Yes 10mg Take 10 mg Univers 10 mg 8-27 by mouth. ity of tablet 10:17: Medical Branch cephALEXin Yes [id number] 500mg Take 1 Univers (KEFLEX) 8-24 capsule by ity o f 500 mg 00:00: mouth 2 [place] capsule 00 (two) Medical times Branch daily. cephALEXin Yes [id number] 500mg Take 1 Univers (KEFLEX) 8-24 capsule by ity o f 500 mg 00:00: mouth 2 [place] capsule 00 (two) Medical times Branch daily. cephALEXin Yes [id number] 500mg Take 1 Univers (KEFLEX) 8-24 capsule by ity o f 500 mg 00:00: mouth 2 [place] capsule 00 (two) Medical times Branch daily. atorvastati Yes [id number] 20mg Take 1 Univers n 20 mg 8-20 tablet by ity of tablet 00:00: mouth at [place] 00 bedtime. Medical Branch IRON 325 mg 2020-0 Yes [id number] 325mg Take 1 Univers (65 mg 8-20 tablet by ity of iron) 00:00: mouth 2 [place] tablet 00 (two) Medical times Branch daily. atorvastati 2020-0 Yes [id number] 20mg Take 1 Univers n 20 mg 8-20 tablet by ity of tablet 00:00: mouth at [place] 00 bedtime. Medical Branch IRON 325 mg 0 Yes [id number] 325mg Take 1 Univers (65 mg 8-20 tablet by ity of iron) 00:00: mouth 2 [place] tablet 00 (two) Medical times Branch daily. atorvastati Yes [id number] 20mg Take 1 Univers n 20 mg 8-20 tablet by ity of tablet 00:00: mouth at [place] 00 bedtime. Medical Branch IRON 325 mg 2020-0 Yes [id number] 325mg Take 1 Univers (65 mg 8-20 tablet by ity of iron) 00:00: mouth 2 [place] tablet 00 (two) Medical times Branch daily. traZODone Yes [id number] 50mg Take 1 Uni vers 50 mg 8-19 tablet by ity of tablet 00:00: mouth at [place] 00 bedtime. Medical Branch traZODone Yes [id number] 50mg Take 1 Uni vers 50 mg 8-19 tablet by ity of tablet 00:00: mouth at [place] 00 bedtime. Medical Branch traZODone Yes [id number] 50mg Take 1 Uni vers 50 mg 8-19 tablet by ity of tablet 00:00: mouth at [place] 00 bedtime. Medical Branch Diclofenac Yes [id number] Apply to Univers Sodium 8-18 103 area(s) 4 ity of (VOLTAREN) 00:00: (four) [place] 1 % gel 00 times Medical daily. Branch Apply 4 g qid Diclofenac Yes [id number] Apply to Univers Sodium 8-18 103 area(s) 4 ity of (VOLTAREN) 00:00: (four) [place] 1 % gel 00 times Medical daily. Branch Apply 4 g qid Diclofenac Yes [id number] Apply to Univers Sodium 8-18 103 area(s) 4 ity of (VOLTAREN) 00:00: (four) [place] 1 % gel 00 times Medical daily. Branch Apply 4 g qid isosorbide Yes [id number] 60mg Take 1 U nivers mononitrate 8-13 tablet by ity of 60 mg 24 hr 00:00: mouth [place] tablet 00 daily. Medical Branch amLODIPine Yes [id number] 10mg Take 1 U nivers 10 mg 8-13 tablet by ity of tablet 00:00: mouth [place] 00 daily. Medical Branch losartan 25 2021-0 Yes [id number] 25mg Take 1 Univers mg tablet 8-13 tablet by ity o f 00:00: mouth [place] 00 daily. Medical Branch escitalopra 0 Yes [id number] 20mg Take 1 Univers m oxalate 8-13 tablet by ity o f 20 mg 00:00: mouth [place] tablet 00 daily. Medical Branch pregabalin 0 Yes [id number] 150mg Take 1 Univers 150 mg 8-13 capsule by ity of capsule 00:00: mouth at [place] 00 bedtime. Medical Branch melatonin 3 2020-0 Yes [id number] 3mg Take 1 U nivers mg tablet 8-13 tablet by ity o f 00:00: mouth at [place] 00 bedtime. Medical Branch Omeprazole 0 Yes [id number] 20mg Take 1 Univers 20 mg 8-13 tablet by ity of tablet 00:00: mouth 2 [place] 00 (two) Medical times Branch daily. isosorbide 2020-0 Yes [id number] 60mg Take 1 U nivers mononitrate 8-13 tablet by ity of 60 mg 24 hr 00:00: mouth [place] tablet 00 daily. Medical Branch amLODIPine 0 Yes [id number] 10mg Take 1 U nivers 10 mg 8-13 tablet by ity of tablet 00:00: mouth [place] 00 daily. Medical Branch losartan 25 2020-0 Yes [id number] 25mg Take 1 Univers mg tablet 8-13 tablet by ity o f 00:00: mouth [place] 00 daily. Medical Branch escitalopra 0 Yes [id number] 20mg Take 1 Univers m oxalate 8-13 tablet by ity o f 20 mg 00:00: mouth [place] tablet 00 daily. Medical Branch pregabalin 2020-0 Yes [id number] 150mg Take 1 Univers 150 mg 8-13 capsule by ity of capsule 00:00: mouth at [place] 00 bedtime. Medical Branch melatonin 3 2020-0 Yes [id number] 3mg Take 1 U nivers mg tablet 8-13 tablet by ity o f 00:00: mouth at [place] 00 bedtime. Medical Branch Omeprazole 2020-0 Yes [id number] 20mg Take 1 Univers 20 mg 8-13 tablet by ity of tablet 00:00: mouth 2 00 (two) Medical times Branch daily. isosorbide 2020-0 Yes [id number] 60mg Take 1 U nivers mononitrate 8-13 tablet by ity of 60 mg 24 hr 00:00: mouth [place] tablet 00 daily. Medical Branch amLODIPine Yes [id number] 10mg Take 1 U nivers 10 mg 8-13 tablet by ity of tablet 00:00: mouth [place] 00 daily. Medical Branch losartan 25 Yes [id number] 25mg Take 1 Univers mg tablet 8-13 tablet by ity o f 00:00: mouth [place] 00 daily. Medical Branch escitalopra Yes [id number] 20mg Take 1 Univers m oxalate 8-13 tablet by ity o f 20 mg 00:00: mouth [place] tablet 00 daily. Medical Branch pregabalin Yes [id number] 150mg Take 1 Univers 150 mg 8-13 capsule by ity of capsule 00:00: mouth at [place] 00 bedtime. Medical Branch melatonin 3 Yes [id number] 3mg Take 1 U nivers mg tablet 8-13 tablet by ity o f 00:00: mouth at [place] 00 bedtime. Medical Branch Omeprazole Yes [id number] 20mg Take 1 Univers 20 mg 8-13 tablet by ity of tablet 00:00: mouth 2 [place] 00 (two) Medical times Branch daily. Vital Signs Vital Name Observation Time Observation Value Comments Source Systolic blood 2021-10-03 02:05:00 180 mm[Hg] [facility] Diastolic blood 2021-10-03 02:05:00 69 mm[Hg] [facility] Heart rate 2021-10-03 02:05:00 73 /min [facility] Body temperature 2021-10-03 02:05:00 36.5 Georgie [facility] Respiratory rate 2021-10-03 02:05:00 17 /min [facility] Oxygen saturation in 2021-10-03 02:05:00 99 /min [facility] Arterial blood by [facility] Pulse oximetry Branch Body weight 2021-10-02 23:03:00 57.153 kg [facility] BMI 2021-10-02 23:03:00 24.61 kg/m2 [facility] Systolic blood 2021-09-06 18:24:00 193 mm[Hg] Univer [facility] Diastolic blood 2021-09-06 18:24:00 91 mm[Hg] Unive [facility] Heart rate 2021-09-06 18:24:00 69 /min [facility] Body temperature 2021-09-06 18:21:00 37.06 Georgie [facility] Respiratory rate 2021-09-06 18:21:00 16 /min [facility] Body height 2021-09-06 18:21:00 152.4 cm [facility] Body weight 2021-09-06 18:21:00 57.289 kg [facility] BMI 2021-09-06 18:21:00 24.67 kg/m2 [facility] Procedures Procedure Date / Time Performed Performing Clinician Sour e COMP. METABOLIC PANEL 2021-10-03 00:44:00 Pam Wooten [facility] ([id number]) [facility] CBC WITH DIFF 2021-10-03 00:44:00 Pam Wooten [facility] URINALYSIS 2021-10-02 23:00:00 Cresencio Bush [facility] CONSENT/REFUSAL FOR 2021-10-02 22:18:23 Doctor Unassigned, No Un [facility] DIAGNOSIS AND Name [facility] TREATMENT Encounters Start End Encounter Admission Attending Care Care Encounter Source Date/Time Date/Time Type Type Clinicians Facility Department ID 2022-01-10 2022-01-10 Outpatient R JONAH OTERO [facility] [id number] Univers 14:00:00 14:00:00 [id number] [facility] 2021-10-02 2021-10-02 Emergency X [facility] ERT [id number] Univers 18:03:00 21:16:00 PAM [facility] 2021-10-02 2021-10-02 [facility] [id number] Univers 18:03:00 21:16:00 Pam LOPEZ [id number] i [facility] [id number] [facility] [id number] [address] 2021-10-02 2021-10-02 Outpatient Ambrocio GABRIEL [facility] [id number] Univers 16:00:00 16:00:00 AKIL [id number] [facility] 2021-09-06 2021-09-06 Office Jonah Otero [facility] [id number] Univers 12:32:10 13:32:10 Visit Y HEALTH [id number] i ty of CLINICS [id number] [id number] [address] 2021-09-06 2021-09-06 Outpatient R JONAH OTERO [facility] [id number] Univers 13:00:00 13:00:00 [id number] [facility] 2021-09-06 2021-09-06 Outpatient Ambrocio JONAH OTERO [facility] [id number] Univers 13:00:00 13:00:00 [facility] 2021-08-04 2021-08-04 Outpatient SUE GENITLE [facility] [id number] Univers 09:20:00 09:20:00 SUE VILLALPANDO [facility] 2021-08-04 2021-08-04 Outpatient SUE GENTILE [facility] [id number] Univers 09:20:00 09:20:00 SUE VILLALPANDO [id number] [facility] 2021-08-03 2021-08-03 Outpatient Ambrocio RODRIGUES [facility] [id number] Univers 09:40:00 09:40:00 TRACY [id number] [facility] 2021-08-03 2021-08-03 Outpatient Ambrocio RODRIGUES [facility] [id number] Univers 09:40:00 09:40:00 TRACY [facility] 2021-07-28 2021-07-28 [facility] [id number] Univers 10:00:00 10:00:00 PHILIP [id number] [facility] 2021-07-28 2021-07-28 Outpatient Ambrocio BALTAZAR [facility] [id number] Univers 10:00:00 10:00:00 PHILIP zainab [facility] 2021-07-27 2021-07-27 Outpatient R KIMBERLY [facility] [id number] Univers 13:00:00 13:00:00 TRACY [id number] [facility] 2021-07-27 2021-07-27 Outpatient R KIMBERLY [facility] [id number] Univers 00:00:00 00:00:00 TRACY zainab [facility] 2021-07-25 2021-07-25 Outpatient IKER [facility] [id number] Univers 09:15:00 09:15:00 NAT [id number] [facility] 2021-07-25 2021-07-25 Outpatient R IKER [facility] [id number] Univers 09:15:00 09:15:00 NAT zainab [facility] 2021-07-21 2021-07-21 Outpatient R KIMBERLY [facility] [id number] Univers 09:40:00 09:40:00 TRACY [id number] [facility] 2021-07-21 2021-07-21 Outpatient R KIMBERLY [facility] [id number] Univers 09:40:00 09:40:00 TRACY zainab [facility] 2021-07-14 2021-07-14 Outpatient R KIMBERLY [facility] [id number] Univers 15:40:00 15:40:00 TRACY [id number] [facility] 2021-07-14 2021-07-14 Outpatient R KIMBERLY [facility] [id number] Univers 14:00:00 14:00:00 TRACY [facility] 2021-07-05 2021-07-05 Emergency X BUSH, [facility] ERT [id number] Univers 13:17:00 13:17:00 CRESENCIO [facility] Results Test Description Test Time Test Comments Results Result Comments Source COMP. METABOLIC PANEL (61075) 2021-10-03 01:15:17 Test Item Value Reference Range Interpretation Comme nts NA (test code = 4755744832) 137 mmol/L 135-145 K (test code = 2206888541) 3.9 mmol/L 3.5-5.0 CL (test code = 5860688103) 103 mmol/L 98-108 CO2 TOTAL (test code = 26 mmol/L 23-31 2106927101) AGAP (test code = 2397584016) 2-16 BUN (test code = 0551711579) 19 mg/dL 7-23 GLUCOSE (test code = 4665818740) 106 mg/dL 70-110 CREATININE (test code = 0.97 mg/dL 0.50-1.04 8808480968) TOTAL BILI (test code = 0.5 mg/dL 0.1-1.8 1911367855) CALCIUM (test code = 0057157687) 9.5 mg/dL 8.6-10.6 T PROTEIN (test code = 6.9 g/dL 6.3-8.2 0543265241) ALBUMIN (test code = 5046930596) 4.3 g/dL 3.5-5.0 ALK PHOS (test code = 9034142199) 81 U/L 34-122 ALTv (test code = 1742-6) 16 U/L 5-35 AST(SGOT) (test code = 23 U/L 13-40 6844376703) eGFR (test code = 9992712249) mL/min/1.73m2 HANH (test code = HANH) Association of Glomerular Filtration Rate (GFR) and Staging of Kidney Disease* + +--------- + ----+| GFR (mL/min/1.73 m2) ?| With Kidney Damage ?| ?Without Kidney Damage+ +--- + +| ?>90 ?| ?Stage one ?| ? Normal ?+ +-------- + -----+| ?60-89 ?| ?Stage two ?| ? Decreased GFR ? + +--------- + ----+| ?30-59 ?| ?Stage three ?| ? Stage three ? + +--------- + ----+| ?15-29 ?| ?Stage four ? | ? Stage four ?+ +-------- + -----+| ?<15 (or dialysis) ? ?| ?Stage five ? | ? Stage five ?+ +-------- + -----+ *Each stage assumes the associated GFR level has been in effect for at least three months. ?Stages 1 to 5, with or without kidney disease, indicate chronic kidney disease. Notes: Determination of stages one and two (with eGFR >59mL/min/1.73 m2) requires estimation of kidney damage for at least three months as defined by structural or functional abnormalities of the kidney, manifested by either:Pathological abnormalities or Markers of kidney damage (including abnormalities in the composition of the blood or urine or abnormalities in imaging tests). [facility] WITH [id number] 00:53:12 Test Item Value Reference Range Interpretation Comments WBC (test code = See_Comment [Automated 6690-2) message] The sy stem which generated this result transmitted reference range : 4.30 - 11.10 10*3/?L. The reference range was not used to interpret this result as normal/abnormal . RBC (test code = See_Comment L [Automated 789-8) message] The sy stem which generated this result transmitted reference range : 3.93 - 5.25 10*6/?L. The reference range was not used to interpret this result as normal/abnormal . HGB (test code = 11.5 g/dL 11.6-15.0 L 718-7) HCT (test code = 34.7 % 35.7-45.2 L 4544-3) MCV (test code = 91.1 fL 80.6-95.5 787-2) MCH (test code = 30.2 pg 25.9-32.8 785-6) MCHC (test code = 33.1 g/dL 31.6-35.1 786-4) RDW-SD (test code = 42.4 fL 39.0-49.9 40301-8) RDW-CV (test code = 12.8 % 12.0-15.5 788-0) PLT (test code = See_Comment [Automated 777-3) message] The sy stem which generated this result transmitted reference range : 166 - 358 10*3/ ?L. The reference r mary was not used to interpret this result as normal/abnormal . MPV (test code = 9.6 fL 9.5-12.9 81886-4) NRBC/100 WBC (test See_Comment [Automat ed code = 4033004695) message] The system which generated this result transmitted reference range : 0.0 - 10.0 /100 WBCs. The refer ence range was not u sed to interpret th is result as normal/abnormal . NRBC x10^3 (test code <0.01 See_Comment [Auto mated = 1593297325) message] The s ystem which generated this result transmitted reference range : 10*3/?L. The reference range was not used to interpret this result as normal/abnormal . GRAN MAT (NEUT) % 70.7 % (test code = 770-8) IMM GRAN % (test code 0.40 % = 6995627284) LYMPH % (test code = 20.8 % 736-9) MONO % (test code = 6.9 % 5905-5) EOS % (test code = 0.7 % 713-8) BASO % (test code = 0.5 % 706-2) GRAN MAT x10^3(ANC) 5.34 10*3/uL 1.88-7.09 (test code = 5952543112) IMM GRAN x10^3 (test 0.03 10*3/uL 0.00-0.06 code = 2845648783) LYMPH x10^3 (test code 1.57 10*3/uL 1.32-3.29 = 731-0) MONO x10^3 (test code 0.52 10*3/uL 0.33-0.92 = 742-7) EOS x10^3 (test code = 0.05 10*3/uL 0.03-0.39 711-2) BASO x10^3 (test code 0.04 10*3/uL 0.01-0.07 = 704-7) Lab Interpretation Abnormal (test code = 16698-0) [facility]"
== END 2021-10-02 19:15 | disposition left against medical advice (07) ==
LOC: ER 15:11
DX: Z53.21 Procedure and treatment not carried out due to patient leaving prior to being seen by health care provider (principal)
CPT/HCPCS: 99281

== ENCOUNTER 2022-07-19 13:00 | Day surgery (SDC) | payer OTHER ==
[2022-07-17 15:08] LABS: Absolute Lymphocytes (CBC) 1.4 K/uL (0.7-4.9); Hematocrit 31.4 % (36.0-45.0); Lymphocytes % 16.2 % (15.3-44.8); MCV 90.1 fL (80-100); MPV 7.6 fL (7.6-11.3); RBC Red Blood Cell Count 3.49 M/uL (3.86-4.86)
[2022-07-17 15:27] LABS: Potassium 3.5 mmol/L (3.5-5.1)
--- NOTE | 2022-07-17 15:31 | RAD REPORT ---
EXAM DESCRIPTION: Cory Gomes (2 Views)07/17/2022 2:55 pm CLINICAL HISTORY: Preop/hypertension COMPARISON: 2020 FINDINGS: The lungs appear clear of acute infiltrate. The heart is mildly enlarged IMPRESSION: No acute abnormalities displayed
[2022-07-17 15:43] LABS: SARS-CoV-2 Antigen Rapid Res Negative (Negative)
--- NOTE | 2022-07-18 11:32 | EKG ---
Test Date: 2022-07-17 Test Time: 14:33:10 Inspector Structural Bonding: NIA MEASUREMENT RESULTS: Intervals: Rate: 71 UT: 166 QRSD: 122 QT: 432 QTc: 469 [place]: P: 77 UT: 166 QRS: -31 T: 49 INTERPRETIVE STATEMENTS: Normal sinus rhythm Left axis deviation Right bundle branch block Abnormal ECG Compared to ECG 06/23/2021 13:59:58 Left-axis deviation now present Electronically Signed On 07-18-22 11:31:17 CDT by Sunny Cast
[~2022-07-19 13:00] MED LIST: HEPA 1000U/500MLS 2,000 UNIT/1,000 ML BAG IV ONE
[2022-07-19] MEDS ORDERED: NA CHLORIDE 0.9% 500 ML ONE (13:58)
[2022-07-19] MEDS ORDERED: ATROPINE SULF 1 MG/10 ML SYR IV ONE (14:08)
[2022-07-19] MEDS ORDERED: MIDAZOLAM HCL 2 MG/2 ML INJ ONE ×2 (14:11→14:51)
[2022-07-19] MEDS ORDERED: FENTANYL CITR 100 MCG/2 ML ONE (14:11)
[2022-07-19 17:49] VITALS: BP 162/59; O2SAT 98
--- NOTE | 2022-07-20 01:30 | OP ---
Date of Procedure: 07/19/2022 Surgeon: ABEL BEGUM Procedure Performed: Bilateral carotid angiogram. Indications: Severe carotid stenosis by Doppler. Access: Right femoral artery 6-Greek closed with 6-Greek Angio-Seal. Complications: None. Bleeding: Less than 10 mL. Anesthesia: Total sedation time was 15 minutes, used fentanyl, Versed. Description Of Procedure: After risks, benefits, and alternatives were explained, patient agreed to the procedure and signed informed consent. The patient was brought into the cardiac catheterization laboratory, prepped and draped in usual sterile fashion. Then, I accessed the right femoral artery u sing ultrasound guidance and fluoroscopy, used Micropuncture kit, placed 6-Greek [place] sheath, to ok a 6-Greek JR4 catheter into the aortic root and then selectively engaged the right common carotid artery, took standard views and then selectively engaged using the same catheter, the left common ca rotid artery, and took standard views and then removed the catheter and the sheath was removed used a 6-Greek Angio-Seal with good hemostasis. Findings: 1.Right common carotid artery distally before the bifurcation and severely stenosed 95% to 99%, garcia jose, there was still CHARLA-3 flow in the internal, external carotid, that they look normal. 2.The left common carotid artery is normal and bifurcates to the external carotid artery that appear s normal and the left internal carotid artery has about 20% to 30% stenosis, otherwise, no significan t disease. Conclusion: Severe right common carotid artery stenosis. Recommendation: We will send the patient to be seen for by CT surgery for carotid endarterectomy. SR/MODL Voice ID: [id number] Report ID: [id number]
== END 2022-07-19 16:40 | disposition home or self-care (01) ==
LOC: CCL 13:00
PROVIDERS: ATTEND Internal Medicine
DX: I65.21 Occlusion and stenosis of right carotid artery (principal); I10 Essential (primary) hypertension; E78.5 Hyperlipidemia, unspecified; E11.9 Type 2 diabetes mellitus without complications; Z79.899 Other long term (current) drug therapy; Z01.810 Encounter for preprocedural cardiovascular examination; Z20.822 Contact with and (suspected) exposure to COVID-19
CPT/HCPCS: 93005; 85025; 80048; 36415; 85610; 85730; 71046; 36222; 76937; 87811; C1893; C1760; G0269; J2250; J3010; J7040; J1644

== ENCOUNTER → 2022-08-13 | Day surgery (SDC) | payer OTHER ==
--- NOTE | 2022-08-13 10:13 | RAD REPORT ---
EXAM DESCRIPTION: Ultrasound-guided vacuum assisted left breast core biopsy CLINICAL HISTORY: Breast mass R92.8 COMPARISON: No comparisons FINDINGS: Informed consent was obtained and time-out was performed. The patient's left breast was prepped and draped in the usual sterile fashion. 1% lidocaine was used for local anesthetic purposes. Utilizing aseptic technique and ultrasound guidance, a 12 gauge vacuum assisted core biopsy device wa s used to obtain 2 core specimens through the mass of interest measuring about 8 mm at 12 o'clock pos ition. A post biopsy clip was then placed. All collected material was sent for cytology. Patient tolerated procedure well. IMPRESSION: Successful ultrasound guided vacuum assisted left breast mass biopsy.
== END ==
LOC: DS 09:00
PROVIDERS: ATTEND Internal Medicine
DX: C50.912 Malignant neoplasm of unspecified site of left female breast (principal); Z17.0 Estrogen receptor positive status [ER+]
CPT/HCPCS: 19083; 88305

== ENCOUNTER → 2023-12-25 | Emergency (ER) | payer OTHER ==
[~2023-12-25] MED LIST changes: -HEPA 1000U/500MLS 2,000 UNIT/1,000 ML BAG IV ONE; +HYDROCODONE/APAP 5/325 MG TAB ONE; +IBUPROFEN 400 MG TAB ONE
--- OUTSIDE RECORDS SUMMARY | 2023-12-25 11:26 | XMS REPORT | Continuity of Care Document ---
Author Name Unknown Address [address] [facility] [address] [place] [address] [facility] thconnect Address [address] [facility] [address] [place] [address] Care Team Providers Care Attending Physician Name Role Phone Tracy Harris MD Primary Care Physician [phone] [email or web address] Attending Clinician UnavailVero Johns Attending Clinician Unavaila Rusty Lau Attending Clinician UnaTRACY Medina Attending Clinician Unavailable PHILIP MOYER Attending Clinician Unavailable SHAGGY VILLALPANDO Attending Clinician Unavail able SHAGGY VILLALPANDO Attending Clinician Unavail able Shaggy Villalpando MD Attending Clinician [phone] Maulik Sherman NP Attending Clinician [phone] Doctor Unassigned, [place] Attending Clinician BISI Jane Attending Clinician Unavailable MAULIK SHERMAN Attending Clinician UnavailBisi Colón MD Attending Clinician [phone] Tracy Harris MD Attending Clinician [phone] JONAH OTERO Attending Clinician Unavailable Jonah Otreo MD Attending Clinician [phone] MAURA WHITEHEADANNE Attending Clinician Unavailable [place] 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 OPERATOR, Ana Attending Clinician Pob, [facility] Main Attending Clinician Unavailshavonne WOOTENPAM Attending Clinician Unavailable Pam Kraus Attending Clinician [phone] Do Arboleda MD Attending Clinician Gramm Berna MENDOZA Attending Clinician BERNA DONG Attending Clinician Unavailable Cresencio Bush MD Attending Clinician CRESENCIO BUSH Attending Clinician Unavailable [email or web address] Admitting Clinician UnavailVero Johns Admitting Clinician UnavailRusty Arroyo Admitting Clinician JONAH Rodarte Admitting Clinician Unavailable Payers Payer Name Policy Type Policy Number Effective Date Expirati on Date Source [employer] (MEDICARE REPLACEMENT/ADVANT AGE - PPO) [id number] [employer] MEDICARE [id number] 2021 00:00:00 Problems Condition Name Condition Details Condition Category Status Onset Date Resolution Date Last Treatment Date Treating Clinician Comments Source Forgetfuln ess Forgetfuln ess Disease Active 2020-12 00:00: 00 [facility] Hypertensi ve urgency Hypertensi ve urgency Disease Active 2020-12 00:00: 00 [facility] Contusion of left great toe with damage to nail, initial encounter Contusion of left great toe with damage to nail, initial encounter Disease Active 07-21 00:00: 00 [facility] Arthritis, multiple joint involvemen t Arthritis, multiple joint involvemen t Disease Active 07-21 00:00: 00 [facility] Non compliance with medical treatment Non compliance with medical treatment Disease Active 07-21 00:00: 00 [facility] Diabetic eye exam Diabetic eye exam Disease Active 18 00:00: 00 [facility] Senile osteoporos is Senile osteoporos is Disease Active 07-19 00:00: 00 [facility] Need for 23-polyval ent pneumococc al polysaccha ride vaccine Need for 23-polyval ent pneumococc al polysaccha ride vaccine Disease Active 0 8-18 00:00: 00 [facility] Recurrent UTI Recurrent UTI Disease Active 0 8-13 00:00: 00 [facility] Cystitis Cystitis Disease Active 0 8-13 00:00: 00 [facility] Dysuria Dysuria Disease Active 0 8- 00:00: 00 [facility] Lower abdominal pain Lower abdominal pain Disease Active 0 8- 00:00: 00 [facility] Alzheimer' s disease of other onset without behavioral disturbanc e Alzheimer' s disease of other onset without behavioral disturbanc e Disease Active 0 8- 00:00: 00 [facility] Chronic idiopathic thrombocyt openia Chronic idiopathic thrombocyt openia Disease Active 0 8 00:00: 00 [facility] Pyelonephr itis Pyelonephr itis Disease Active 0 8 00:00: 00 [facility] Gastroesop hageal reflux disease without esophagiti s Gastroesop hageal reflux disease without esophagiti s Disease Active 0 8 00:00: 00 [facility] Primary insomnia Primary insomnia Disease Active 0 8 00:00: 00 [facility] Hospital discharge follow-up Hospital discharge follow-up Disease Active 0 8 00:00: 00 [facility] Depression , major, recurrent, moderate Depression , major, recurrent, moderate Disease Active 0 8-13 00:00: 00 [facility] Anxiety, generalize d Anxiety, generalize d Disease Active 0 8- 00:00: 00 [facility] Chronic anemia Chronic anemia Disease Active 0 8-13 00:00: 00 [facility] Mixed hearing loss, bilateral Mixed hearing loss, bilateral Disease Active 0 8-13 00:00: 00 [facility] Dyslipidem ia Dyslipidem ia Disease Active 8 00:00: 00 [facility] Essential hypertensi on Essential hypertensi on Disease Active 07-14 00:00: 00 [facility] Chronic midline low back pain without sciatica Chronic midline low back pain without sciatica Disease Active 8 00:00: 00 [facility] Urothelial lesion Urothelial lesion Disease Active 07-14 00:00: 00 [facility] Diverticul osis Diverticul osis Disease Active 07-14 00:00: 00 [facility] Renal scarring Renal scarring Disease Active 07-14 00:00: 00 [facility] Diabetic polyneurop athy associated with type 2 diabetes mellitus Diabetic polyneurop athy associated with type 2 diabetes mellitus Disease Active 07-14 00:00: 00 [facility] Atheroscle rosis of aorta Atheroscle rosis of aorta Disease Active 07-14 00:00: 00 [facility] 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, without long-term current use of 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, without long-term current use of insulin Disease Active 07-14 00:00: 00 [facility] RLS (restless legs syndrome) RLS (restless legs syndrome) Disease Active 07-14 00:00: 00 [facility] Abnormal liver enzymes Abnormal liver enzymes Disease Active 07-14 00:00: 00 [facility] CKD stage G3a/A2, GFR 45-59 and albumin creatinine ratio 30-299 mg/g CKD stage G3a/A2, GFR 45-59 and albumin creatinine ratio 30-299 mg/g Disease Active 07-14 00:00: 00 [facility] Allergies, Adverse Reactions, Alerts Allergy Name Allergy Type Status Severity Reaction(s) Onset Date Inactive Date Treating Clinician Comments Source sulfamet hoxazole DA Active SV DIARRHEA 05-23 00:00: 00 [facility] trimetho prim DA Active SV DIARRHEA 05-23 00:00: 00 [facility] No Known Allergie s DA Active U 07-20 00:00: 00 [facility] CODEINE DRUG INGREDI Active Dizziness 07-05 00:00: 00 [facility] Codeine Propensi ty to adverse reaction s Active Dizziness 07-05 00:00: 00 [facility] Social History Social Habit Start Date Stop Date Quantity Comments [facility]-2 (event) 2021-11-04 00:00:00 2021-12-04 07:44:00 Not sure [facility] Alcohol intake 2021-07-25 00:00:00 2021-07-25 00:00:00 Lifetime non-drinker (finding) [facility] Tobacco use and exposure 2021-07-21 00:00:00 2021-07-21 00:00:00 Smokeless tobacco non-user [facility] History of Social function 2021-07-14 00:00:00 2021-07-14 00:00:00 [facility] Sex Assigned At 1940 00:00:00 1940 00:00:00 [facility] Smoking Status Start Date Stop Date Source Tobacco smoking consumption unknown [facility] Never smoked tobacco [facility] Medications Ordered Medication Name Filled Medication Name Start Date Stop Date Current Medication? Ordering Clinician Indication Dosage Frequency Signature (SIG) Comments Components Source CLONAZEPAM ORAL 12-04 09:43: 48 Yes Take by mouth. [facility] CLONAZEPAM ORAL 12-04 09:43: 48 Yes Take by mouth. [facility] rivastigmin e 4.6 mg/24 hour patch 12-04 00:00: 00 Yes [id number] 1{patch } Apply 1 Patch to skin daily. Call office for refills. [facility] rivastigmin e 4.6 mg/24 hour patch 12-04 00:00: 00 Yes [id number] 1{patch } Apply 1 Patch to skin daily. Call office for refills. [facility] neomycin-po lymyxin-hyd rocortisone otic solution 2020-12 00:00: 00 Yes [id number] 3[drp] Place 3 Drops in right ear 4 (four) times daily. [facility] neomycin-po lymyxin-hyd rocortisone otic solution 2020-12 00:00: 00 Yes [id number] 3[drp] Place 3 Drops in right ear 4 (four) times daily. [facility] neomycin-po lymyxin-hyd rocortisone otic solution 2020-12 00:00: 00 Yes [id number] 3[drp] Place 3 Drops in right ear 4 (four) times daily. [facility] losartan-hy drochloroth iazide 50-12.5 mg per tablet 2020-12 00:00: 00 Yes [id number] 1{tbl} Take 1 tablet by mouth daily. [facility] pantoprazol e 20 mg EC tablet 2020-12 00:00: 00 Yes [id number] 20mg Take 1 tablet by mouth every morning. [facility] losartan-hy drochloroth iazide 50-12.5 mg per tablet 2020-12 00:00: 00 Yes [id number] 1{tbl} Take 1 tablet by mouth daily. [facility] pantoprazol e 20 mg EC tablet 2020-12 00:00: 00 Yes [id number] 20mg Take 1 tablet by mouth every morning. [facility] losartan-hy drochloroth iazide 50-12.5 mg per tablet 2020-12 00:00: 00 Yes [id number] 1{tbl} Take 1 tablet by mouth daily. [facility] pantoprazol e 20 mg EC tablet 2020-12 00:00: 00 Yes [id number] 20mg Take 1 tablet by mouth every morning. [facility] losartan-hy drochloroth iazide 50-12.5 mg per tablet 2020-12 00:00: 00 Yes [id number] 1{tbl} Take 1 tablet by mouth daily. [facility] pantoprazol e 20 mg EC tablet 2020-12 00:00: 00 Yes [id number] 20mg Take 1 tablet by mouth every morning. [facility] buPROPion XL 300 mg 24 hr tablet 07-28 10:17: 13 Yes 300mg Take 300 mg by mouth daily. [facility] montelukast 10 mg tablet 07-28 10:17: 13 Yes 10mg Take 10 mg by mouth. [facility] buPROPion XL 300 mg 24 hr tablet 07-28 10:17: 13 Yes 300mg Take 300 mg by mouth daily. [facility] montelukast 10 mg tablet 07-28 10:17: 13 Yes 10mg Take 10 mg by mouth. [facility] buPROPion XL 300 mg 24 hr tablet 07-28 10:17: 13 Yes 300mg Take 300 mg by mouth daily. [facility] montelukast 10 mg tablet 07-28 10:17: 13 Yes 10mg Take 10 mg by mouth. [facility] buPROPion XL 300 mg 24 hr tablet 07-28 10:17: 13 Yes 300mg Take 300 mg by mouth daily. [facility] montelukast 10 mg tablet 07-28 10:17: 13 Yes 10mg Take 10 mg by mouth. [facility] buPROPion XL 300 mg 24 hr tablet 07-28 10:17: 13 Yes 300mg Take 300 mg by mouth daily. [facility] montelukast 10 mg tablet 07-28 10:17: 13 Yes 10mg Take 10 mg by mouth. [facility] buPROPion XL 300 mg 24 hr tablet 07-28 10:17: 13 Yes 300mg Take 300 mg by mouth daily. [facility] montelukast 10 mg tablet 07-28 10:17: 13 Yes 10mg Take 10 mg by mouth. [facility] buPROPion XL 300 mg 24 hr tablet 07-28 10:17: 13 Yes 300mg Take 300 mg by mouth daily. [facility] montelukast 10 mg tablet 07-28 10:17: 13 Yes 10mg Take 10 mg by mouth. [facility] buPROPion XL 300 mg 24 hr tablet 07-28 10:17: 13 Yes 300mg Take 300 mg by mouth daily. [facility] montelukast 10 mg tablet 07-28 10:17: 13 Yes 10mg Take 10 mg by mouth. [facility] buPROPion XL 300 mg 24 hr tablet 07-28 10:17: 13 Yes 300mg Take 300 mg by mouth daily. [facility] montelukast 10 mg tablet 07-28 10:17: 13 Yes 10mg Take 10 mg by mouth. [facility] buPROPion XL 300 mg 24 hr tablet 07-28 10:17: 13 Yes 300mg Take 300 mg by mouth daily. [facility] montelukast 10 mg tablet 07-28 10:17: 13 Yes 10mg Take 10 mg by mouth. [facility] cephALEXin (KEFLEX) 500 mg capsule 824 00:00: 00 10-20 00:00 :00 No [id number] 500mg Take 1 capsule by mouth 2 (two) times daily. [facility] cephALEXin (KEFLEX) 500 mg capsule 0 24 00:00: 00 10-20 00:00 :00 No [id number] 500mg Take 1 capsule by mouth 2 (two) times daily. [facility] cephALEXin (KEFLEX) 500 mg capsule 2020-0 824 00:00: 00 10-20 00:00 :00 No [id number] 500mg Take 1 capsule by mouth 2 (two) times daily. [facility] cephALEXin (KEFLEX) 500 mg capsule 2020-0 824 00:00: 00 10-20 00:00 :00 No [id number] 500mg Take 1 capsule by mouth 2 (two) times daily. [facility] atorvastati n 20 mg tablet 20 00:00: 00 Yes [id number] 20mg Take 1 tablet by mouth at bedtime. [facility] IRON 325 mg (65 mg iron) tablet 07-21 00:00: 00 Yes [id number] 325mg Take 1 tablet by mouth 2 (two) times daily. [facility] atorvastati n 20 mg tablet 07-21 00:00: 00 Yes [id number] 20mg Take 1 tablet by mouth at bedtime. [facility] IRON 325 mg (65 mg iron) tablet 07-21 00:00: 00 Yes [id number] 325mg Take 1 tablet by mouth 2 (two) times daily. [facility] atorvastati n 20 mg tablet 07-21 00:00: 00 Yes [id number] 20mg Take 1 tablet by mouth at bedtime. [facility] IRON 325 mg (65 mg iron) tablet 07-21 00:00: 00 Yes [id number] 325mg Take 1 tablet by mouth 2 (two) times daily. [facility] atorvastati n 20 mg tablet 07-21 00:00: 00 Yes [id number] 20mg Take 1 tablet by mouth at bedtime. [facility] IRON 325 mg (65 mg iron) tablet 07-21 00:00: 00 Yes [id number] 325mg Take 1 tablet by mouth 2 (two) times daily. [facility] atorvastati n 20 mg tablet 20 00:00: 00 Yes [id number] 20mg Take 1 tablet by mouth at bedtime. [facility] IRON 325 mg (65 mg iron) tablet 820 00:00: 00 Yes [id number] 325mg Take 1 tablet by mouth 2 (two) times daily. [facility] atorvastati n 20 mg tablet 07-21 00:00: 00 Yes [id number] 20mg Take 1 tablet by mouth at bedtime. [facility] IRON 325 mg (65 mg iron) tablet 07-21 00:00: 00 Yes [id number] 325mg Take 1 tablet by mouth 2 (two) times daily. [facility] atorvastati n 20 mg tablet 07-21 00:00: 00 Yes [id number] 20mg Take 1 tablet by mouth at bedtime. [facility] IRON 325 mg (65 mg iron) tablet 07-21 00:00: 00 Yes [id number] 325mg Take 1 tablet by mouth 2 (two) times daily. [facility] atorvastati n 20 mg tablet 07-21 00:00: 00 Yes [id number] 20mg Take 1 tablet by mouth at bedtime. [facility] IRON 325 mg (65 mg iron) tablet 07-21 00:00: 00 Yes [id number] 325mg Take 1 tablet by mouth 2 (two) times daily. [facility] atorvastati n 20 mg tablet 07-21 00:00: 00 Yes [id number] 20mg Take 1 tablet by mouth at bedtime. [facility] IRON 325 mg (65 mg iron) tablet 07-21 00:00: 00 Yes [id number] 325mg Take 1 tablet by mouth 2 (two) times daily. [facility] traZODone 50 mg tablet 07-20 00:00: 00 Yes [id number] 50mg Take 1 tablet by mouth at bedtime. [facility] traZODone 50 mg tablet 07-20 00:00: 00 Yes [id number] 50mg Take 1 tablet by mouth at bedtime. [facility] traZODone 50 mg tablet 07-20 00:00: 00 Yes [id number] 50mg Take 1 tablet by mouth at bedtime. [facility] traZODone 50 mg tablet 07-20 00:00: 00 Yes [id number] 50mg Take 1 tablet by mouth at bedtime. [facility] traZODone 50 mg tablet 07-20 00:00: 00 Yes [id number] 50mg Take 1 tablet by mouth at bedtime. [facility] traZODone 50 mg tablet 07-20 00:00: 00 Yes [id number] 50mg Take 1 tablet by mouth at bedtime. [facility] traZODone 50 mg tablet 07-20 00:00: 00 Yes [id number] 50mg Take 1 tablet by mouth at bedtime. [facility] traZODone 50 mg tablet 07-20 00:00: 00 Yes [id number] 50mg Take 1 tablet by mouth at bedtime. [facility] traZODone 50 mg tablet 07-20 00:00: 00 Yes [id number] 50mg Take 1 tablet by mouth at bedtime. [facility] traZODone 50 mg tablet 07-20 00:00: 00 Yes [id number] 50mg Take 1 tablet by mouth at bedtime. [facility] Diclofenac Sodium (VOLTAREN) 1 % gel 07-19 00:00: 00 Yes [id number] 103 Apply to area(s) 4 (four) times daily. [facility] 4 [facility]id [facility] Diclofenac Sodium (VOLTAREN) 1 % gel 07-19 00:00: 00 Yes [id number] 103 Apply to area(s) 4 (four) times daily. Apply 4 g qid [facility] Diclofenac Sodium (VOLTAREN) 1 % gel 0 07-19 00:00: 00 Yes [id number] 103 Apply to area(s) 4 (four) times daily. Apply 4 g qid [facility] Diclofenac Sodium (VOLTAREN) 1 % gel 0 07-19 00:00: 00 Yes [id number] 103 Apply to area(s) 4 (four) times daily. Apply 4 g qid [facility] Diclofenac Sodium (VOLTAREN) 1 % gel 0 07-19 00:00: 00 Yes [id number] 103 Apply to area(s) 4 (four) times daily. Apply 4 g qid [facility] Diclofenac Sodium (VOLTAREN) 1 % gel 18 00:00: 00 Yes [id number] 103 Apply to area(s) 4 (four) times daily. Apply 4 g qid [facility] Diclofenac Sodium (VOLTAREN) 1 % gel 818 00:00: 00 Yes [id number] 103 Apply to area(s) 4 (four) times daily. Apply 4 g qid [facility] Diclofenac Sodium (VOLTAREN) 1 % gel 818 00:00: 00 Yes [id number] 103 Apply to area(s) 4 (four) times daily. Apply 4 g qid [facility] Diclofenac Sodium (VOLTAREN) 1 % gel 818 00:00: 00 Yes [id number] 103 Apply to area(s) 4 (four) times daily. Apply 4 g qid [facility] Diclofenac Sodium (VOLTAREN) 1 % gel 8 00:00: 00 Yes [id number] 103 Apply to area(s) 4 (four) times daily. Apply 4 g qid [facility] isosorbide mononitrate 60 mg 24 hr tablet 07-14 00:00: 00 Yes [id number] 60mg Take 1 tablet by mouth daily. [facility] amLODIPine 10 mg tablet 07-14 00:00: 00 Yes [id number] 10mg Take 1 tablet by mouth daily. [facility] escitalopra m oxalate 20 mg tablet 07-14 00:00: 00 Yes [id number] 20mg Take 1 tablet by mouth daily. [facility] pregabalin 150 mg capsule 07-14 00:00: 00 Yes [id number] 150mg Take 1 capsule by mouth at bedtime. [facility] isosorbide mononitrate 60 mg 24 hr tablet 07-14 00:00: 00 Yes [id number] 60mg Take 1 tablet by mouth daily. [facility] amLODIPine 10 mg tablet 0 07-14 00:00: 00 Yes [id number] 10mg Take 1 tablet by mouth daily. [facility] escitalopra m oxalate 20 mg tablet 2021-0 8-13 00:00: 00 Yes [id number] 20mg Take 1 tablet by mouth daily. [facility] pregabalin 150 mg capsule 2020-0 813 00:00: 00 Yes [id number] 150mg Take 1 capsule by mouth at bedtime. [facility] isosorbide mononitrate 60 mg 24 hr tablet 0 -13 00:00: 00 Yes [id number] 60mg Take 1 tablet by mouth daily. [facility] amLODIPine 10 mg tablet 0 13 00:00: 00 Yes [id number] 10mg Take 1 tablet by mouth daily. [facility] escitalopra m oxalate 20 mg tablet 0 07-14 00:00: 00 Yes [id number] 20mg Take 1 tablet by mouth daily. [facility] pregabalin 150 mg capsule 0 07-14 00:00: 00 Yes [id number] 150mg Take 1 capsule by mouth at bedtime. [facility] isosorbide mononitrate 60 mg 24 hr tablet 0 07-14 00:00: 00 Yes [id number] 60mg Take 1 tablet by mouth daily. [facility] amLODIPine 10 mg tablet 0 07-14 00:00: 00 Yes [id number] 10mg Take 1 tablet by mouth daily. [facility] escitalopra m oxalate 20 mg tablet 0 07-14 00:00: 00 Yes [id number] 20mg Take 1 tablet by mouth daily. [facility] pregabalin 150 mg capsule 0 813 00:00: 00 Yes [id number] 150mg Take 1 capsule by mouth at bedtime. [facility] isosorbide mononitrate 60 mg 24 hr tablet 2020-0 813 00:00: 00 Yes [id number] 60mg Take 1 tablet by mouth daily. [facility] amLODIPine 10 mg tablet 2020-0 -13 00:00: 00 Yes [id number] 10mg Take 1 tablet by mouth daily. [facility] escitalopra m oxalate 20 mg tablet 0 8-13 00:00: 00 Yes [id number] 20mg Take 1 tablet by mouth daily. [facility] pregabalin 150 mg capsule 2020-0 8-13 00:00: 00 Yes [id number] 150mg Take 1 capsule by mouth at bedtime. [facility] isosorbide mononitrate 60 mg 24 hr tablet 2020-0 8-13 00:00: 00 Yes [id number] 60mg Take 1 tablet by mouth daily. [facility] amLODIPine 10 mg tablet 2020-0 8-13 00:00: 00 Yes [id number] 10mg Take 1 tablet by mouth daily. [facility] escitalopra m oxalate 20 mg tablet 0 8-13 00:00: 00 Yes [id number] 20mg Take 1 tablet by mouth daily. [facility] pregabalin 150 mg capsule 2020-0 8-13 00:00: 00 Yes [id number] 150mg Take 1 capsule by mouth at bedtime. [facility] isosorbide mononitrate 60 mg 24 hr tablet 0 813 00:00: 00 Yes [id number] 60mg Take 1 tablet by mouth daily. [facility] amLODIPine 10 mg tablet 2020-0 813 00:00: 00 Yes [id number] 10mg Take 1 tablet by mouth daily. [facility] escitalopra m oxalate 20 mg tablet 0 813 00:00: 00 Yes [id number] 20mg Take 1 tablet by mouth daily. [facility] pregabalin 150 mg capsule 0 8-13 00:00: 00 Yes [id number] 150mg Take 1 capsule by mouth at bedtime. [facility] isosorbide mononitrate 60 mg 24 hr tablet 2020-0 8-13 00:00: 00 Yes [id number] 60mg Take 1 tablet by mouth daily. [facility] amLODIPine 10 mg tablet 2020-0 8-13 00:00: 00 Yes [id number] 10mg Take 1 tablet by mouth daily. [facility] escitalopra m oxalate 20 mg tablet 2020-0 8-13 00:00: 00 Yes [id number] 20mg Take 1 tablet by mouth daily. [facility] pregabalin 150 mg capsule 8 00:00: 00 Yes [id number] 150mg Take 1 capsule by mouth at bedtime. [facility] isosorbide mononitrate 60 mg 24 hr tablet 07-14 00:00: 00 Yes [id number] 60mg Take 1 tablet by mouth daily. [facility] amLODIPine 10 mg tablet 07-14 00:00: 00 Yes [id number] 10mg Take 1 tablet by mouth daily. [facility] escitalopra m oxalate 20 mg tablet 07-14 00:00: 00 Yes [id number] 20mg Take 1 tablet by mouth daily. [facility] pregabalin 150 mg capsule 07-14 00:00: 00 Yes [id number] 150mg Take 1 capsule by mouth at bedtime. [facility] isosorbide mononitrate 60 mg 24 hr tablet 07-14 00:00: 00 Yes [id number] 60mg Take 1 tablet by mouth daily. [facility] amLODIPine 10 mg tablet 07-14 00:00: 00 Yes [id number] 10mg Take 1 tablet by mouth daily. [facility] escitalopra m oxalate 20 mg tablet 07-14 00:00: 00 Yes [id number] 20mg Take 1 tablet by mouth daily. [facility] pregabalin 150 mg capsule 07-14 00:00: 00 Yes [id number] 150mg Take 1 capsule by mouth at bedtime. [facility] losartan 25 mg tablet 07-14 00:00: 00 10-20 00:00 :00 No [id number] 25mg Take 1 tablet by mouth daily. [facility] [facility] melatonin 3 mg tablet 07-14 00:00: 00 10-20 00:00 :00 No [id number] 3mg Take 1 tablet by mouth at bedtime. [facility] Omeprazole 20 mg tablet 07-14 00:00: 00 10-20 00:00 :00 No [id number] 20mg Take 1 tablet by mouth 2 (two) times daily. [facility] losartan 25 mg tablet 0 8-13 00:00: 00 10-20 00:00 :00 No [id number] 25mg Take 1 tablet by mouth daily. [facility] melatonin 3 mg tablet 0 8-13 00:00: 00 10-20 00:00 :00 No [id number] 3mg Take 1 tablet by mouth at bedtime. [facility] Omeprazole 20 mg tablet 8-13 00:00: 00 10-20 00:00 :00 No [id number] 20mg Take 1 tablet by mouth 2 (two) times daily. [facility] losartan 25 mg tablet 8 00:00: 00 10-20 00:00 :00 No [id number] 25mg Take 1 tablet by mouth daily. [facility] melatonin 3 mg tablet 07-14 00:00: 00 10-20 00:00 :00 No [id number] 3mg Take 1 tablet by mouth at bedtime. [facility] Omeprazole 20 mg tablet 07-14 00:00: 00 10-20 00:00 :00 No [id number] 20mg Take 1 tablet by mouth 2 (two) times daily. [facility] losartan 25 mg tablet 0 8-13 00:00: 00 10-20 00:00 :00 No [id number] 25mg Take 1 tablet by mouth daily. [facility] melatonin 3 mg tablet 0 8-13 00:00: 00 10-20 00:00 :00 No [id number] 3mg Take 1 tablet by mouth at bedtime. [facility] Omeprazole 20 mg tablet 0 8-13 00:00: 00 10-20 00:00 :00 No [id number] 20mg Take 1 tablet by mouth 2 (two) times daily. [facility] Vital Signs Vital Name Observation Time Observation Value Comments S ource Systolic blood pressure 2021-12-04 15:39:00 147 mm[Hg] [place] [facility] Diastolic blood pressure 2021-12-04 15:39:00 59 mm[Hg] [facility] Heart rate 2021-12-04 15:39:00 64 /min [facility] Body height 2021-12-04 15:39:00 152.4 cm [facility] Body weight 2021-12-04 15:39:00 61.1 kg [facility] BMI 2021-12-04 15:39:00 26.31 kg/m2 [facility] Oxygen saturation in Arterial blood by Pulse oximetry 2021-12-04 15:39:00 98 /min [facility] Procedures Procedure Date / Time Performed Performing Clinicia n Source [id number] 2022-07-23 00:00:00 CHAAB.01 [facility] Encounters Start Date/Time End Date/Time Encounter Type Admission Type Attending [facility] Care Department Encounter ID Source 2023-12-11 00:00:00 2023-12-11 00:00:00 Outpatient GC_GCBZW_Ka diyala_S PRIV PRIV [id number] [facility] 2023-11-13 00:00:00 2023-11-13 00:00:00 Outpatient GC_GCBZW_Ka diyala_S PRIV PRIV [id number] [facility] 2023-10-17 00:00:00 2023-10-17 00:00:00 Outpatient GC_GCBZW_Ka diyala_S PRIV PRIV [id number] [facility] 2023-09-18 00:00:00 2023-09-18 00:00:00 Outpatient GC_GCBZW_Ka diyala_S PRIV PRIV [id number] [facility] 2023-08-26 00:00:00 2023-08-26 00:00:00 Outpatient GC_GCBZW_Ka diyala_S PRIV PRIV [id number] [facility] 2023-08-26 00:00:00 2023-08-26 00:00:00 Outpatient GC_GCBZW_Ka diyala_S PRIV PRIV [id number] [facility] 2023-08-26 00:00:00 2023-08-26 00:00:00 Outpatient GC_GCBZW_Ka diyala_S PRIV PRIV [id number] [facility] 2023-08-26 00:00:00 2023-08-26 00:00:00 Outpatient GC_GCBZW_Ka diyala_S PRIV PRIV [id number] [facility] 2023-08-22 00:00:00 2023-08-22 00:00:00 Outpatient GC_GCBZW_Ka diyala_S PRIV PRIV [id number] [facility] 2023-08-01 00:00:00 2023-08-01 00:00:00 Outpatient GC_GCBZW_Ka diyala_S PRIV PRIV [id number] [facility] 2023-07-04 00:00:00 2023-07-04 00:00:00 Outpatient GC_GCBZW_Ka diyala_S PRIV PRIV [id number] [facility] 2023-06-11 00:00:00 2023-06-11 00:00:00 Outpatient GC_GCBZW_Ka diyala_S PRIV PRIV [id number] [facility] 2023-06-10 00:00:00 2023-06-10 00:00:00 Outpatient GC_GCBZW_Ka diyala_S PRIV PRIV [id number] [facility] 2023-06-03 05:24:00 2023-06-04 10:26:00 Inpatient Vero Weems HCAPM MEDI.01 [id number] [facility] 2022-07-23 10:48:00 2022-07-24 15:28:00 Inpatient Kayden Domingo HCACL INTE.02 [id number] [facility] 2022-01-24 11:00:00 2022-01-24 11:00:00 Outpatient TRACY SCHMIDT [facility] [id number] [facility] 2022-01-24 11:00:00 2022-01-24 11:00:00 Outpatient R TRACY HARRIS [facility] [id number] [facility] 2022-01-24 11:00:00 2022-01-24 11:00:00 Outpatient R TRACY HARRIS [facility] [id number] [facility] 2022-01-05 10:30:00 2022-01-05 10:30:00 Outpatient R GIOVANNY PHILIP [facility] [id number] [facility] 2021-12-04 09:20:00 2021-12-04 10:33:16 Outpatient SHAGGY GENTILE HOWARD [facility] [id number] [facility] 2021-12-04 09:20:00 2021-12-04 10:33:16 Office Visit Shaggy Villalpando [facility]?MIK[facility]ash[facility] 1..840.114 350.1.13.10 4.2.7.2.686 [id number] [facility] 2021-11-30 00:00:00 2021-11-30 00:00:00 Letter (Out) [facility] 1..840.114 350.1.13.10 4.2.7.2.686 [id number] [facility] 2021-11-30 00:00:00 2021-11-30 00:00:00 Patient Secure Msg Doctor Unassigned, [place] [facility] 1.2.840.114 350.1.13.10 4.2.7.2.686 [id number] [facility] 2021-11-28 20:40:00 2021-11-28 20:40:00 Outpatient BISI CARMONA [facility] [id number] [facility] 2021-11-28 11:00:00 2021-11-28 12:13:06 Outpatient R MAULIK SHERMANJACQUELINE MAULIK [facility] [id number] [facility] 2021-11-28 11:00:00 2021-11-28 12:13:06 Office Visit Sinai Shermanlisy [facility] N[facility]ILD[facility] 1..840.114 350.1.13.10 4.2.7.2.686 [id number] [facility] 2021-11-28 11:00:00 2021-11-28 12:13:06 Outpatient R SINAI SHERMANALAYNA SHERMAN MAULIK [facility] [id number] [facility] 2021-11-28 09:20:00 2021-11-28 09:32:16 Outpatient R BISI ARCOS [facility] [id number] [facility] 2021-11-28 09:20:00 2021-11-28 09:32:16 Urgent Care [facility] 1..840.114 350.1.13.10 4.2.7.2.686 [id number] [facility] 2021-11-27 00:00:00 2021-11-27 00:00:00 Telephone Tracy Harris [facility] 1..840.114 350.1.13.10 4.2.7.2.686 [id number] [facility] 2021-10-31 00:00:00 2021-10-31 00:00:00 Patient Secure Msg Doctor Unassigned, [place] [facility] 1.2.840.114 350.1.13.10 4.2.7.2.686 [id number] [facility] 2021-10-30 09:35:25 2021-10-30 23:59:00 Outpatient R JONAH OTERO [facility] [id number] Chuckie kal [facility] 2021-10-30 09:35:25 2021-10-30 23:59:00 Hospital Encounter Jonah Otero [facility] 1..840.114 350.1.13.10 4.2.7.2.686 [id number] [facility] 2021-10-29 11:07:00 2021-10-29 12:25:00 Emergency X ANA WHITEHEAD [facility] ERT [id number] [facility] 2021-10-29 11:07:00 2021-10-29 12:25:00 Emergency WhiteheadAna guzman [facility] 1..840.114 350.1.13.10 4.2.7.2.686 [id number] [facility] 2021-10-29 11:07:00 2021-10-29 12:25:00 Emergency X ANA WHITEHEAD [facility] ERT [id number] [facility] 2021-10-20 13:45:00 2021-10-20 13:45:00 Outpatient R TRACY HARRIS [facility] [id number] [facility] 2021-10-20 11:00:00 2021-10-20 13:18:32 Outpatient R TRACY HARRIS [facility] [id number] [facility] 2021-10-20 10:53:42 2021-10-20 13:18:32 Office Visit Tracy Harris [facility] 1..840.114 350.1.13.10 4.2.7.2.686 [id number] [facility] 2021-10-20 13:00:33 2021-10-20 13:15:33 Utilities Estimator And Drafter Visit Pob, Adc Lab Main Tracy Harris [facility] 1..114 350.1.13.10 4.2.7.2.686 [id number] [facility] 2021-10-20 00:00:00 2021-10-20 00:00:00 Orders Only Doctor Unassigned, [place] [facility] 1.0.114 350.1.13.10 4.2.7.2.686 [id number] [facility] 2021-10-02 18:03:00 2021-10-02 21:16:00 Emergency X WOOTEN, PAM [facility] ERT [id number] [facility] 2021-10-02 18:03:00 2021-10-02 21:16:00 Emergency X WOOTEN, PAM [facility] ERT [id number] [facility] 2021-10-02 18:03:00 2021-10-02 21:16:00 Emergency Wooten, Pam R [facility] 1..114 350.1.13.10 4.2.7.2.686 [id number] [facility] 2021-09-16 00:00:00 2021-09-16 00:00:00 Patient Secure Msg Doctor Unassigned, [place] [facility] 1..114 350.1.13.10 4.2.7.2.686 [id number] [facility] 2021-09-06 12:32:10 2021-09-06 13:32:10 Office Visit Jonah Otero [facility] 1..114 350.1.13.10 4.2.7.2.686 [id number] [facility] 2021-09-06 13:00:00 2021-09-06 13:00:00 Outpatient R JONAH OTERO [facility] [id number] [facility] 2021-09-06 13:00:00 2021-09-06 13:00:00 Outpatient Ambrocio JONAH OTERO [facility] [id number] Malka bowden [facility] 2021-09-06 00:00:00 2021-09-06 00:00:00 Telephone Robles Do [facility] 1.84.114 350.1.13.10 4.2.7.2.686 [id number] [facility] 2021-08-09 00:00:00 2021-08-09 00:00:00 Patient Secure Msg Doctor Unassigned, [place] [facility] 1.84.114 350.1.13.10 4.2.7.2.686 [id number] [facility] 2021-08-04 09:20:00 2021-08-04 09:20:00 Outpatient SHAGGY GENTILE [facility] [id number] [facility] 2021-08-04 09:20:00 2021-08-04 09:20:00 Outpatient SHAGGY GENTILE [facility] [id number] [facility] 2021-08-04 00:00:00 2021-08-04 00:00:00 Patient Secure Msg Doctor Unassigned, [place] [facility] 1.840.114 350.1.13.10 4.2.7.2.686 [id number] [facility] 2021-08-03 09:40:00 2021-08-03 09:40:00 Outpatient TRACY SCHMIDT [facility] [id number] [facility] 2021-07-28 09:40:37 2021-07-28 12:11:09 [facility] 1.840.114 350.1.13.10 4.2.7.2.686 [id number] [facility] 2021-07-28 10:00:00 2021-07-28 10:00:00 Outpatient R PHILIP MOYER [facility] [id number] [facility] 2021-07-28 00:00:00 2021-07-28 00:00:00 Orders Only Doctor Unassigned, [place] [facility] 1.2.840.114 350.1.13.10 4.2.7.2.686 [id number] [facility] 2021-07-27 12:52:31 2021-07-27 23:59:00 Hospital Encounter Kimberly [facility] 1.2.840.114 350.1.13.10 4.2.7.2.686 [id number] [facility] 2021-07-27 12:52:31 2021-07-27 23:59:00 Hospital Encounter Kimberly [facility] 1.2.840.114 350.1.13.10 4.2.7.2.686 [id number] [facility] 2021-07-27 12:51:56 2021-07-27 12:51:56 Hospital Encounter Kimberly [facility] 1.2.840.114 350.1.13.10 4.2.7.2.686 [id number] [facility] 2021-07-27 12:51:56 2021-07-27 12:51:56 [facility] 1.2.840.114 350.1.13.10 4.2.7.2.686 [id number] [facility] 2021-07-27 00:00:00 2021-07-27 00:00:00 Outpatient R [facility] [id number] [facility] 2021-07-27 00:00:00 2021-07-27 00:00:00 Patient Secure Msg Doctor Unassigned, [place] [facility] 1.2840.114 350.1.13.10 4.2.7.2.686 [id number] [facility] 2021-07-26 00:00:00 2021-07-26 00:00:00 Telephone AlfonsoTracy orona [facility] 1.2840.114 350.1.13.10 4.2.7.2.686 [id number] [facility] 2021-07-26 00:00:00 2021-07-26 00:00:00 Telephone KimberlyTracy [facility] 1.20.114 350.1.13.10 4.2.7.2.686 [id number] [facility] 2021-07-25 09:18:21 2021-07-25 09:59:32 Office Visit Berna Dong [facility] 1.2840.114 350.1.13.10 4.2.7.2.686 [id number] [facility] 2021-07-25 09:18:21 2021-07-25 09:59:32 Office Visit Berna Dong [facility] 1.2840.114 350.1.13.10 4.2.7.2.686 [id number] [facility] 2021-07-25 09:15:00 2021-07-25 09:15:00 Outpatient R BERNA DONG [facility] [id number] [facility] 2021-07-25 00:00:00 2021-07-25 00:00:00 Patient Secure Msg Doctor Unassigned, [place] [facility] 1.2840.114 350.1.13.10 4.2.7.2.686 [id number] [facility] 2021-07-21 11:45:00 2021-07-21 23:59:00 Hospital Encounter Tracy Harris [facility] 1.2.840.114 350.1.13.10 4.2.7.2.686 [id number] [facility] 2021-07-21 09:17:42 2021-07-21 09:57:42 [facility] 1.2.840.114 350.1.13.10 4.2.7.2.686 [id number] [facility] 2021-07-21 09:40:00 2021-07-21 09:40:00 Outpatient R [facility] [id number] [facility] 2021-07-21 08:07:36 2021-07-21 08:22:36 Utilities Estimator And Drafter Visit Pob, Adc Lab Main Kimberly [facility] Building 1.2840.114 350.1.13.10 4.2.7.2.686 [id number] [facility] 2021-07-19 00:00:00 2021-07-19 00:00:00 Patient Secure Msg Doctor Unassigned, [place] [facility] 1.2840.114 350.1.13.10 4.2.7.2.686 [id number] [facility] 2021-07-14 14:02:17 2021-07-14 16:02:16 Office Visit Tracy Harris [facility] 1.2840.114 350.1.13.10 4.2.7.2.686 [id number] [facility] 2021-07-14 15:45:18 2021-07-14 15:45:27 Office Visit Tracy Harris [facility] Profess[facility] 1.2.840.114 350.1.13.10 4.2.7.2.686 [id number] [facility] 2021-07-14 14:00:00 2021-07-14 14:00:00 Outpatient R TRACY [facility]IS [facility] [id number] [facility] 2021-07-14 00:00:00 2021-07-14 00:00:00 Telephone Tracy Harris [facility] 1.2.840.114 350.1.13.10 4.2.7.2.686 [id number] [facility] 2021-07-05 13:17:00 2021-07-05 17:36:00 Emergency Cresencio Bush [facility] 1.2.840.114 350.1.13.10 4.2.7.2.686 [id number] [facility] 2021-07-05 13:17:00 2021-07-05 13:17:00 Emergency X BUSHCRESENCIO [facility] ERT [id number] [facility] Results Test Description Test Time Test Comments Results Result Co mments Source CBC W/AUTO [id number] 05:14:00* Test Item Value Reference Range Interpretation Comme nts WHITE BLOOD CELL (test code = WBC) 9.7 K/mm3 3.5-11.0 N RED BLOOD CELL (test code = RBC) 3.46 M/mm3 4.70-6.10 L HEMOGLOBIN (test code = HGB) 10.7 G/DL 10.4-14.9 N HEMATOCRIT (test code = HCT) 31.8 % 31.5-44.1 N MEAN CELL VOLUME (test code = MCV) 91.9 Fl 84.5-98.6 N MEAN CELL HGB (test code = MCH) 30.9 pg 27.0-34.2 N MEAN CELL HGB CONCETRATION (test code = MCHC) 33.6 G/DL 31.5-34.0 N RED CELL DISTRIBUTION WIDTH (test code = RDW) 12.9 SD 11.5-14.5 N PLATELET COUNT (test code = PLT) 197 K/mm3 150-450 N MEAN PLATELET VOLUME (test c ode = MPV) 9.80 fL 7.0-10.5 N NEUTROPHIL % (test code = NT%) 81.1 % 40-76 H IMMATURE GRANULOCYTE % (test code = IG%) 0.5 % 0.0-5.0 N LYMPHOCYTE % (test code = LY%) 11.5 % 20.5-51.1 L MONOCYTE % (test code = MO%) 6.6 % 1.7-9.3 N EOSINOPHIL % (test code = EO%) 0.1 % 0.0-6.0 N BASOPHIL % (test code = BA%) 0.2 % 0.0-2.0 N NUCLEATED RBC % (test code = NRBC%) 0.0 /100WBC% 0.0-1.0 N NEUTROPHIL # (test code = NT#) 7.8 K/mm3 1.8-7.6 H IMMATURE GRANULOCYTE # (test code = IG#) 0.05 x10 3/uL 0.00-0.03 H LYMPHOCYTE # (test code = LY#) 1.1 K/mm3 0.6-3.2 N MONOCYTE # (test code = MO#) 0.6 K/mm3 0.3-1.1 N EOSINOPHIL # (test code = EO#) 0.0 K/mm3 0.0-0.4 N BASOPHIL # (test code = BA#) 0.0 K/mm3 0.0-0.1 N NUCLEATED RBC # (test code = NRBC#) 0.0 K/mm3 0.0-0.1 N MANUAL DIFF REQUIRED (test c ode = MDIFF) NO DIFF/SCN CRITERIA [id number] 05:12:00* Test Item Value Reference Range Interpretation Comme nts MAGNESIUM (test code = MAG) 1.9 MG/DL 1.8-2.4 N Comment: my orderGLUCOSE BEDSIDE [id number] 16:18:00* Test Item Value Reference Range Interpretation Comme nts GLUCOSE BEDSIDE TESTING (shoaib t code = GLUBED) 230 mg/dL 70-110 H GLUCOSE BEDSIDE [id number] 15:39:00* Test Item Value Reference Range Interpretation Comme nts GLUCOSE BEDSIDE TESTING (shoaib t code = GLUBED) 172 mg/dL 70-110 H GLUCOSE BEDSIDE [id number] 12:15:00* Test Item Value Reference Range Interpretation Comme nts GLUCOSE BEDSIDE TESTING (shoaib t code = GLUBED) 166 mg/dL 70-110 H - XR CHEST 1 [id number] 14:39:00 [facility] 1940 Sex: FName: NITA MAN [facility] : 1940 Age/S: 82 / F [id number] Unit #: [id number] Loc: [place] [address] Phys: Tha Mc MD Acct: [id number] Dis Date: Status: PRE [facility] PHONE #: [phone] Exam Date: 05/23/2023 1421 FAX #: Reason: PRE OP EXAMS: CPT: [id number] XR CHEST 1 V [id number] Fluoro Time: DAP (Gy m2): Air Kerma (mGy): S 17 TIME OF STUDY: 05/23/2023 9:00 AM REASON FOR EXAM: PRE OP COMPARISON: July 24, 2022. FINDINGS: AP view of the chest was obtained. Lungs: Normal lung volume. No mass, or consolidation. Normal pulmonary vascularity. Pleura: No pleural effusion or pneumothorax. Heart and Mediastinum: Normal cardiomediastinal silhouette and calcific atheroscl erosis. Surgical clips are present in the left chest. Bones: Normal regional skeletal structures. IMPRESSION: 1. No acute cardiopulmonary process. at 1439 Reported and signed by: Sunny Alamo M.D. CC: Vikram Orr MD; Vero Ortega MD; Tha Mc MD PAGE 1 Signed Report Name: NITA MAN [place] : 1940 Age/S:82 / F [id number] Unit #: [id number] Loc: [place] [address] Phys: Tha Mc MD Acct: [id number] Dis Date: Status: PRE SDC PHONE #: [phone] Exam Date: 05/23/2023 1421 FAX #: Reason: PRE OP EXAMS: CPT: [id number] XR CHEST 1 V 50966 Fluoro Time: DAP (Gy m2): Air Kerma (mGy): (Continued) Technologist: Fatimah Spear Trnscb Date/Time: 05/23/2023 (1439) [email or web address] Orig Print D/T: S: 05/23/2023 (8162) PAGE 2 Signed Report THROMBOPLASTIN TIME [id number] 14:03:00* Test Item Value Reference Range Interpretation Comme nts THROMBOPLASTIN TIME PARTIAL (test code = PTT) 34.0 SECONDS 26-35 N PROTHROMBIN [id number] 14:03:00* Test Item Value Reference Range Interpretation Comme nts PT PATIENT (test code = PTP) 11.4 SECONDS 9.3-12.9 N INTERNATIONAL NORMAL RATIO (test code = INR) 1.03 INR Unit 0.8-1.2 N TARGET INR BY INDICATION Indication INR1. Prophylaxis of venous thrombosis 2.0 - 3.0 (orthopedic surgery), Prophylaxis of venous thrombosis (other than high-risk surgery), Treatment of Deep Vein Thrombosis/Pulmonary Embolism, Prevention of systemic embolism - Tissue heart valves, Acute Myocardial Infarction (to prevent systemic embolism), Valvular heart disease, Acute Myocardial Infarction (to prevent systemic embolism), Valvular heart disease, Atrial Fibrillation, Bileaflet mechanical valve in aortic position.2. Mechanical prosthetic valves (high risk), 2.5 - 3.5 Presence of Lupus Anticoagulant or Antiphospholipid Antibodies, Prevention of systemic embolism - Acute Myocardial Infarction (to prevent recurrent infarct). URINALYSIS [id number] 13:52:00* Test Item Value Reference Range Interpretation Comme nts UA GLUCOSE DIPSTICK (test code = DGLUU) NEGATIVE mg/dL NEG UA BILIRUBIN DIPSTICK (test code = BILU) NEGATIVE mg/dL NEG UA KETONE DIPSTICK (test cod e = KETU) NEGATIVE mg/dL NEG UA SPECIFIC GRAVITY (test code = SGU) 1.015 SG 1.005-1.030 UA BLOOD DIPSTICK (test code = DANIEL) NEGATIVE mg/DL NEG UA PH DIPSTICK (test code = NATHAN) 5.5 pH UNITS 5.0-7.0 UA PROTEIN DIPSTICK (test code = PROU) 1+ mg/dL NEG A UA UROBILINIOGEN DIPSTICK (test code = URO) 0.2 mg/dL <2.0 UA NITRITE DIPSTICK (test code = RHONDA) NEGATIVE SCREEN NEG UA LEUKOCYTE ESTERASE DIPSTICK (test code = LEUU) 3+ Leuk/mcL NEGATIVE A Urine Specimen Type: Clean CatchBASIC METABOLIC [id number] 13:52:00* Test Item Value Reference Range Interpretation Comme nts SODIUM (test code = NA) 133 mmol/L 134-147 L POTASSIUM (test code = K) 4.0 mmol/L 3.4-5.0 N CHLORIDE (test code = CL) 100 mmol/L 100-108 N CARBON DIOXIDE (test code = CO2) 24 mmol/L 21-32 N ANION GAP (test code = GAP) 9.0 GAP calc 4.0-15.0 N GLUCOSE (test code = GLU) 244 MG/DL 70-110 H BLOOD UREA NITROGEN (test code = BUN) 20 MG/DL 7-18 H GLOMERULAR FILTRATION RATE (test code = GFR) 34 estGFR >60 L The Glomerular Filtration Rate is a calculated parameterbased on serum Creatinine, patient age and sex. GFR valuesless than 60 mL/min/1.73 square meters are indicative ofChronic Kidney Disease. Values less than 15 mL/min/1.73square meters indicate Kidney failure. The calculation forGFR is based on the CKD-EPI (2020) calculation. This formulais race indifferent and is the recommended formula for GFRby the National Kidney Foundation for Adults.The GFR will not calculate if the sex is unknown or if thepatient's age is <18 years. CREATININE (test code = CREAT) 1.5 MG/DL 0.6-1.0 H CALCIUM (test code = CA) 8.4 MG/DL 8.5-10.1 L CBC W/AUTO [id number] 13:38:00* Test Item Value Reference Range Interpretation Comme nts WHITE BLOOD CELL (test code = WBC) 5.6 K/mm3 3.5-11.0 N RED BLOOD CELL (test code = RBC) 3.49 M/mm3 4.70-6.10 L HEMOGLOBIN (test code = HGB) 10.8 G/DL 10.4-14.9 N HEMATOCRIT (test code = HCT) 31.8 % 31.5-44.1 N MEAN CELL VOLUME (test code = MCV) 91.1 Fl 84.5-98.6 N MEAN CELL HGB (test code = MCH) 30.9 pg 27.0-34.2 N MEAN CELL HGB CONCETRATION (test code = MCHC) 34.0 G/DL 31.5-34.0 N RED CELL DISTRIBUTION WIDTH (test code = RDW) 12.9 SD 11.5-14.5 N PLATELET COUNT (test code = PLT) 211 K/mm3 150-450 N MEAN PLATELET VOLUME (test c ode = MPV) 9.80 fL 7.0-10.5 N NEUTROPHIL % (test code = NT%) 75.4 % 40-76 N IMMATURE GRANULOCYTE % (test code = IG%) 0.4 % 0.0-5.0 N LYMPHOCYTE % (test code = LY%) 16.4 % 20.5-51.1 L MONOCYTE % (test code = MO%) 5.8 % 1.7-9.3 N EOSINOPHIL % (test code = EO%) 1.3 % 0.0-6.0 N BASOPHIL % (test code = BA%) 0.7 % 0.0-2.0 N NUCLEATED RBC % (test code = NRBC%) 0.0 /100WBC% 0.0-1.0 N NEUTROPHIL # (test code = NT#) 4.2 K/mm3 1.8-7.6 N IMMATURE GRANULOCYTE # (test code = IG#) 0.02 x10 3/uL 0.00-0.03 N LYMPHOCYTE # (test code = LY#) 0.9 K/mm3 0.6-3.2 N MONOCYTE # (test code = MO#) 0.3 K/mm3 0.3-1.1 N EOSINOPHIL # (test code = EO#) 0.1 K/mm3 0.0-0.4 N BASOPHIL # (test code = BA#) 0.0 K/mm3 0.0-0.1 N NUCLEATED RBC # (test code = NRBC#) 0.0 K/mm3 0.0-0.1 N MANUAL DIFF REQUIRED (test c ode = MDIFF) NO DIFF/SCN CRITERIA [id number] 15:01:00* Test Item Value Reference Range Interpretation Comme nts SURGICAL (test code = SR) -----RUN DATE: 07/25/22 [facility] PAGE 1 RUN TIME: 1501 Specimen Inquiry RUN USER: INTERFACE -----PATIENT: NITA MAN LOC: MaryCCU U #: [id number] AGE/SX: 81/F ROOM: [facility] RE07/23/22REG DR: Rusty Angeles : 39 BED: 1 DIS: 07/24/22 STATUS: DIS IN TLOC: ----- SPEC #: [id number] RECD: 07/23/22 STATUS: DOTTIE GALEANO #: [id number] DIEGO: 07/23/22- SUBM DR: Rusty Angeles MD ENTERED: 07/23/22 SP TYPE: SURGICAL OTHR DR: Vikram Orr MD, Anas MDORDERED: 95102, 05220, ANATOMIC SPEC COPIES TO: Rusty Angeles MD [address] [place] [address]. [address] [place] [address] Vikram Orr MD [address] [place] [address] Kimber Bobby MD [address] [place] [address] PROCEDURES: 82076 (07/25/22) 13542 (07/23/22) TISSUES: A. CAROTID PLAQUE WITH DECAL - RIGHT FINAL DIAGNOSIS Right carotid plaque, excision:Plaque tissue with calcification and degenerative changes. GROSS DESCRIPTION The specimen received in formalin in a container labeled with the patient's name anddesignated right carotid plaque consists of multiple fragments of soft tissue which inaggregate measures 2.2 cm in greatest dimension. Corporate Safety Manager sections are submitted in1 cassette after decalcification. Technical component performed at [facility],[address] [place] [address] Unless gross only, the diagnosis is based upon microscopic examination.Immunohistochemis try: This test was developed and its performance characteristics CONTINUED ON NEXT PAGE -----RUN DATE: 07/25/22 [facility] PAGE 2 RUN TIME: 1501 Specimen Inquiry RUN USER: INTERFACE -----SPEC #: [id number] PATIENT: NITA MAN #[id number] (Continued) GROSS DESCRIPTION (Continued) determined by this laboratory. It has not been approved nor does it need approvalby the [place] FDA. Appropriate positive and negative controls are reviewed and judgedto be acceptable. This laboratory is certified under the Clinical Laboratory ImprovementAmendments (CLIA-88) as qualified to perform high complexity clinical laboratory testing. MICROSCOPIC DESCRIPTION A microscopic examination was performed. CLINICAL INFORMATION RT CAROTID STENOSIS Signed SIGNATURE ON FILE Tim Schrader 07/25/22 8209 ----- END OF REPORT BASIC METABOLIC [id number] 13:53:00* Test Item Value Reference Range Interpretation Comme nts SODIUM (test code = NA) 133 mEq/L 134-147 L POTASSIUM (test code = K) 3.5 mEq/L 3.4-5.0 N CHLORIDE (test code = CL) 100 mEq/L 100-108 N CARBON DIOXIDE (test code = CO2) 24 mEq/l 21-33 N ANION GAP (test code = GAP) 12 0-20 N GLUCOSE (test code = GLU) 190 mg/dL 70-110 H BLOOD UREA NITROGEN (test code = BUN) 13 mg/dL 7-18 GLOMERULAR FILTRATION RATE (test code = GFR) 43.0 70-80 L Units of measure = ml/min/1.73 m2 CREATININE (test code = CREAT) 1.2 mg/dL 0.6-1.3 N CALCIUM (test code = CA) 8.1 mg/dL 8.0-10.5 N GLUCOSE [id number] 12:13:00* Test Item Value Reference Range Interpretation Comme nts GLUCOSE BEDSIDE (test code = GLUBED) 155 MG/DL 70-110 H Performed by cer tified buhr mill operator at [facility] HGBA1C%2022-07-24 04:44:00* Test Item Value Reference Range Interpretation Comme nts HGBA1C% (test code = HGBA1C%) 5.5 %A1C 4.8-6.0 N BASIC METABOLIC [id number] 04:32:00* Test Item Value Reference Range Interpretation Comme nts SODIUM (test code = NA) 134 mEq/L 134-147 N POTASSIUM (test code = K) 3.8 mEq/L 3.4-5.0 N CHLORIDE (test code = CL) 101 mEq/L 100-108 N CARBON DIOXIDE (test code = CO2) 26 mEq/l 21-33 N ANION GAP (test code = GAP) 11 0-20 N GLUCOSE (test code = GLU) 124 mg/dL 70-110 H BLOOD UREA NITROGEN (test code = BUN) 22 mg/dL 7-18 H GLOMERULAR FILTRATION RATE (test code = GFR) 36.0 70-80 L Units of measure = ml/min/1.73 m2 CREATININE (test code = CREAT) 1.4 mg/dL 0.6-1.3 H CALCIUM (test code = CA) 8.3 mg/dL 8.0-10.5 N [id number] 04:32:00* Test Item Value Reference Range Interpretation Comme nts PHOSPHOROUS (test code = PHOS) 4.2 MG/DL 2.5-4.9 N [id number] 04:32:00* Test Item Value Reference Range Interpretation Comme nts MAGNESIUM (test code = MAG) 1.46 mg/dL 1.80-2.40 L CALCIUM [id number] 04:32:00* Test Item Value Reference Range Interpretation Comme nts CALCIUM IONIZED (test code = ARIANA) 1.11 MMOL/L 1.09-1.30 N CBC W/AUTO [id number] 04:22:00* Test Item Value Reference Range Interpretation Comme nts WHITE BLOOD CELL (test code = WBC) 10.8 x10 3/uL 4.5-11.0 N RED BLOOD CELL (test code = RBC) 3.11 x10 6/uL 3.54-5.02 L HEMOGLOBIN (test code = HGB) 9.9 g/dL 11.0-15.0 L HEMATOCRIT (test code = HCT) 28.5 % 33.0-45.0 L MEAN CELL VOLUME (test code = MCV) 91.6 fL 81.0-99.0 N MEAN CELL HGB (test code = MCH) 31.8 pg 27.0-33.0 N MEAN CELL HGB CONCETRATION (test code = MCHC) 34.7 g/dL 33.0-37.0 N RED CELL DISTRIBUTION WIDTH CV (test code = RDW) 13.6 % 11.5-14.5 N RED CELL DISTRIBUTION WIDTH SD (test code = RDW-SD) 45.0 fL 37.0-54.0 N PLATELET COUNT (test code = PLT) 202 x10 3/uL 150-400 N MEAN PLATELET VOLUME (test c ode = MPV) 9.7 fL 7.0-9.0 H NEUTROPHIL % (test code = NT%) 81.9 % 56.0-77.0 H IMMATURE GRANULOCYTE % (test code = IG%) 0.4 % 0.0-2.0 N LYMPHOCYTE % (test code = LY%) 10.7 % 14.0-32.0 L MONOCYTE % (test code = MO%) 6.7 % 4.8-9.0 N EOSINOPHIL % (test code = EO%) 0.2 % 0.3-3.7 L BASOPHIL % (test code = BA%) 0.1 % 0.0-2.0 N NUCLEATED RBC % (test code = NRBC%) 0.0 % 0-0 N NEUTROPHIL # (test code = NT#) 8.86 x10 3/uL 2.0-7.6 H IMMATURE GRANULOCYTE # (test code = IG#) 0.04 x10 3/uL 0.00-0.03 H LYMPHOCYTE # (test code = LY#) 1.16 x10 3/uL 1.0-3.8 N MONOCYTE # (test code = MO#) 0.72 x10 3/uL 0.1-0.8 N EOSINOPHIL # (test code = EO#) 0.02 x10 3/uL 0.0-0.2 N BASOPHIL # (test code = BA#) 0.01 x10 3/uL 0.0-0.2 N NUCLEATED RBC # (test code = NRBC#) 0.00 x10 3/uL 0.0-0.1 N MANUAL DIFF REQUIRED (test c ode = MDIFF) NO - XR CHEST 1 [id number] 00:00:00 [facility] : 1940 Sex: F FAX: Riccardo Kendall [place]: St: [facility] FAX: Rusty Portillo [phone] Name: NITA MAN [facility] Maame Lawrence : 1940 Age/S: 81/F [address] [place] [address] Unit #: [id number] Loc: .[address] [place] [address] Phys: Riccardo Kendall Acct: [id number] Dis Date: Status: ADM IN PHONE #: [phone] Exam Date: 07/24/2022619 FAX #: [phone] Reason: Post op EXAMS: CPT CODE: [id number] XRCHEST 1 V 62781 PROCEDURE INFORMATION: Exam: XR Chest Exam date and time: 07/24/2022 5:37 AM Age: 81 years old Clinical indication: Other: Post op TECHNIQUE: Imaging protocol: Radiologic exam of the chest. Views: 1 view. COMPARISON: DX XR CHEST 2 V 07/20/2022 2:00 PM FINDINGS: Lungs: See "Heart/Mediastinum" finding. Pleural spaces: No active pleural or parenchymal shadowing is seen. Heart/Mediastinum: The patient is significantly rotated to the left precluding accurate assessment of the cardiacsilhouette size and hilar shadows. The pulmonary vascularity is normal. Bones/joints: Unremarkable.Soft tissues: A moderate to large hiatus hernia is present. IMPRESSION: No acute abnormality in thechest. Large retrocardiac hiatus hernia. at 0827 Reported and signed by: Jimena Whitaker M.D. 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 at [facility] GLUCOSE [id number] 11:56:00* Test Item Value Reference Range Interpretation Comme nts GLUCOSE BEDSIDE (test code = GLUBED) 149 MG/DL 70-110 H Performed by cer tified buhr mill operator at [facility] BASIC METABOLIC [id number] 11:50:00* Test Item Value Reference Range Interpretation Comme nts SODIUM (test code = NA) 139 mEq/L 134-147 N POTASSIUM (test code = K) 3.8 mEq/L 3.4-5.0 N CHLORIDE (test code = CL) 106 mEq/L 100-108 N CARBON DIOXIDE (test code = CO2) 25 mEq/l 21-33 N ANION GAP (test code = GAP) 12 0-20 N GLUCOSE (test code = GLU) 169 mg/dL 70-110 H BLOOD UREA NITROGEN (test code = BUN) 18 mg/dL 7-18 N GLOMERULAR FILTRATION RATE (test code = GFR) 47.6 70-80 L Units of measure = ml/min/1.73 m2 CREATININE (test code = CREAT) 1.1 mg/dL 0.6-1.3 N CALCIUM (test code = CA) 8.7 mg/dL 8.0-10.5 N HGB [id number] 11:26:00* Test Item Value Reference Range Interpretation Comme nts HEMOGLOBIN (test code = HGB) 10.9 g/dL 11.0-15.0 L HEMATOCRIT (test code = HCT) 31.7 % 33.0-45.0 L GLUCOSE [id number] 09:08:00* Test Item Value Reference Range Interpretation Comme nts GLUCOSE BEDSIDE (test code = GLUBED) 145 MG/DL 70-110 H Performed by cer tified buhr mill operator at [facility] [id number] 07:58:00* Test Item Value Reference Range Interpretation Comme nts ACT-ISTAT (test code = ACTI) 312 SEC 74-137 H Performed by cer tified buhr mill operator at [facility] UA RFLX MICR CULT IF [id number] 14:59:00* Test Item Value Reference Range Interpretation Comme nts UA COLOR (test code = COLU) YELLOW YEL/STRAW UA APPEARANCE (test code = APPU) CLEAR CLEAR UA GLUCOSE DIPSTICK (test co de = DGLUU) NEGATIVE NEGATIVE UA BILIRUBIN DIPSTICK (test code = BILU) NEGATIVE NEGATIVE UA KETONE DIPSTICK (test cod e = KETU) NEGATIVE NEGATIVE UA SPECIFIC GRAVITY (test co de = SGU) 1.017 1.005-1.030 N UA BLOOD DIPSTICK (test code = DANIEL) NEGATIVE NEGATIVE UA PH DIPSTICK (test code = NATHAN) 6.0 5.0-7.0 N UA PROTEIN DIPSTICK (test co de = PROU) 2+ NEGATIVE A UA UROBILINIOGEN DIPSTICK (t est code = URO) 0.2 mg/dL 0.2-1.0 UA NITRITE DIPSTICK (test co de = RHONDA) NEGATIVE NEGATIVE UA LEUKOCYTE ESTERASE DIPSTI CK (test code = LEUU) 3+ NEGATIVE A UA WBC (test code = WBCU) 21-50 WBC/HPF 0-3 A UA RBC (test code = RBCU) 0-3 RBC/HPF 0-3 UA WBC NO REFLEX (test code = WBCUCL) 21-50 WBC/HPF 0-3 A UA BACTERIA (test code = BACU) TRACE /HPF NONE SEEN UA SQUAMOUS CELLS (test code = SQU) 0-5 /HPF NONE SEEN UA MUCUS (test code = MUCU) TRACE /LPF NONE SEEN Indication for culture: RiskForSepsis-no oth srcSpecimen Description: CLEAN CATCHCOVID 19 Asymptomatic IH [id number] 14:53:00* Test Item Value Reference Range Interpretation Comme nts COVID 19 Asymptomatic IH AG (test code = COVNONPUIAG) Negative Negative A negative resul t is presumptive and should be confirmedwith an FDA authorized molecular assay, if necessary forpatient management.A positive result does not rule out co-infections withother pathogens.This test detects both viable (live) and non-viable,SARS-CoV, and SARS-CoV-2. Test performance depends on theamount of virus (antigen) in the sample.This test has not been FDA cleared or approved; the test hasbeen authorized by FDA under an Emergency Use Authorization(EUA) for use by laboratories certified under the CLIA thatmeet the requirements to perform moderate, high or waivedcomplexity tests. HGBA1C%2022-07-20 14:45:00* Test Item Value Reference Range Interpretation Comme nts HGBA1C% (test code = HGBA1C%) 5.6 %A1C 4.8-6.0 N COMPREHENSIVE METABOLIC [id number] 14:38:00* Test Item Value Reference Range Interpretation Comme nts SODIUM (test code = NA) 135 mEq/L 134-147 N POTASSIUM (test code = K) 4.1 mEq/L 3.4-5.0 N CHLORIDE (test code = CL) 102 mEq/L 100-108 N CARBON DIOXIDE (test code = CO2) 23 mEq/l 21-33 N ANION GAP (test code = GAP) 14 0-20 N GLUCOSE (test code = GLU) 206 mg/dL 70-110 H BLOOD UREA NITROGEN (test code = BUN) 27 mg/dL 7-18 H GLOMERULAR FILTRATION RATE (test code = GFR) 30.9 70-80 L Units of measure = ml/min/1.73 m2 CREATININE (test code = CREAT) 1.6 mg/dL 0.6-1.3 H TOTAL PROTEIN (test code = PROT) 6.7 g/dL 6.4-8.2 N ALBUMIN (test code = ALB) 4.20 g/dL 3.4-5.0 N CALCIUM (test code = CA) 9.1 mg/dL 8.0-10.5 N BILIRUBIN TOTAL (test code = BILT) 0.40 mg/dL 0.0-1.0 N SGOT/AST (test code = AST) 12 IUnit/L 15-37 L SGPT/ALT (test code = ALT) 7 IUnit/L 30-65 L ALKALINE PHOSPHATASE TOTAL (test code = ALKP) 69 IUnit/L 20-125 N PROTHROMBIN [id number] 14:34:00* Test Item Value Reference Range Interpretation Comme nts PROTHROMBIN TIME PATIENT (test code = PTP) 11.5 SECONDS 9.3-12.9 N INTERNATIONAL NORMAL RATIO (test code = INR) 1.0 0.8-1.2 N TARGET INR BY INDICATION Indication INR1. Prophylaxis of venous thrombosis 2.0 - 3.0 (orthopedic surgery), Prophylaxis of venous thrombosis (other than high-risk surgery), Treatment of Deep Vein Thrombosis/Pulmonary Embolism, Prevention of systemic embolism - Tissue heart valves, Acute Myocardial Infarction (to prevent systemic embolism), Valvular heart disease, Atrial Fibrillation, Bileaflet mechanical valve in aortic position.2. Mechanical prosthetic valves (high risk), 2.5 - 3.5 Presence of Lupus Anticoagulant or Antiphospholipid Antibodies, Prevention of systemic embolism - Acute Myocardial Infarction (to prevent recurrent infarct). THROMBOPLASTIN TIME [id number] 14:34:00* Test Item Value Reference Range Interpretation Comme nts THROMBOPLASTIN TIME PARTIAL (test code = PTT) 29.3 Seconds 25.0-39.5 N Therapeutic Rang e: 50.4 - 88.3 Seconds Effective 03/17/2019 CBC W/AUTO [id number] 14:26:00* Test Item Value Reference Range Interpretation Comme nts WHITE BLOOD CELL (test code = WBC) 8.3 x10 3/uL 4.5-11.0 N RED BLOOD CELL (test code = RBC) 3.57 x10 6/uL 3.54-5.02 N HEMOGLOBIN (test code = HGB) 11.4 g/dL 11.0-15.0 N HEMATOCRIT (test code = HCT) 33.2 % 33.0-45.0 N MEAN CELL VOLUME (test code = MCV) 93.0 fL 81.0-99.0 N MEAN CELL HGB (test code = MCH) 31.9 pg 27.0-33.0 N MEAN CELL HGB CONCETRATION (test code = MCHC) 34.3 g/dL 33.0-37.0 N RED CELL DISTRIBUTION WIDTH CV (test code = RDW) 13.7 % 11.5-14.5 N RED CELL DISTRIBUTION WIDTH SD (test code = RDW-SD) 46.4 fL 37.0-54.0 N PLATELET COUNT (test code = PLT) 244 x10 3/uL 150-400 N MEAN PLATELET VOLUME (test c ode = MPV) 9.9 fL 7.0-9.0 H NEUTROPHIL % (test code = NT%) 72.4 % 56.0-77.0 N IMMATURE GRANULOCYTE % (test code = IG%) 0.4 % 0.0-2.0 N LYMPHOCYTE % (test code = LY%) 19.2 % 14.0-32.0 N MONOCYTE % (test code = MO%) 6.9 % 4.8-9.0 N EOSINOPHIL % (test code = EO%) 0.6 % 0.3-3.7 N BASOPHIL % (test code = BA%) 0.5 % 0.0-2.0 N NUCLEATED RBC % (test code = NRBC%) 0.0 % 0-0 N NEUTROPHIL # (test code = NT#) 5.98 x10 3/uL 2.0-7.6 N IMMATURE GRANULOCYTE # (test code = IG#) 0.03 x10 3/uL 0.00-0.03 N LYMPHOCYTE # (test code = LY#) 1.59 x10 3/uL 1.0-3.8 N MONOCYTE # (test code = MO#) 0.57 x10 3/uL 0.1-0.8 N EOSINOPHIL # (test code = EO#) 0.05 x10 3/uL 0.0-0.2 N BASOPHIL # (test code = BA#) 0.04 x10 3/uL 0.0-0.2 N NUCLEATED RBC # (test code = NRBC#) 0.00 x10 3/uL 0.0-0.1 N MANUAL DIFF REQUIRED (test c ode = MDIFF) NO - XR CHEST 2 [id number] 00:00:00 [facility] : 1940 Sex: F FAX: Rusty Portillo [phone] [place]: [address]: PRE Name: NITA MAN [facility] Maame Lawrence : 1940 Age/S: 81/F [address] [place] [address] Bl Unit #: [id number] Loc: [place] [address] Phys: Rusty Angeles MD Acct: [id number] Dis Date: Status: PRE SDC PHONE #: [phone] Exam Date: 07/20/2022 1359 FAX #: [phone] Reason: PREOP EXAMS: CPT CODE: [id number] XR CHEST 2 V 96558 PROCEDURE INFORMATION: Exam: XR Chest Exam date and time: 07/20/2022 2:00 PM Age: 81 years old Clinical indication: Screening exam; Pre-operative exam; Other: Preop TECHNIQUE: Imaging protocol: Radiologic exam ofthe chest. Views: 2 views. COMPARISON: No relevant prior studies available. FINDINGS: Lungs: No focal consolidations or acute infiltrates. Increased lung volumes. Pleural spaces: Unremarkable. No pleural effusion. No pneumothorax. Heart/Mediastinum: Unremarkable. No cardiomegaly. Bones/joints: Thoracic spurring. IMPRESSION: No acute findings. Electronically Signed by Ju Arriaga on 07/20/2022 at 5939 Reported and signed by: Dean Arriaga M.D. CC: Rusty Angeles MD Technologist: RT Alok(R) Trnscrd Date/Time/By: 07/20/2022 (8662) : By: [email or web address] Orig Print D/T: S: 07/20/2022 (2893) PAGE 1 Signed Report Notes Date/Time Note Provider Source 2023-06-03 11:37:00 [id number] HCIPqyrCP/JA YqwxJs2oJk+Rfcnf+LldkuaC8227-58-85V84:37:00 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 mass, cysto 3mon postop, likely inflammed area; Bulkamid 1.2mlComplications: noneEstimated blood loss in ml's: 100Specimens removed/altered: noneFluids:1000Urine output:400Approach: vag at 1140 RPT #: [id number] OF REPORT OPOperative lhvubs7082-23-59D77:37:00L.[id number] ble for patient yqlvWWEPCDRNHGGTJC8358-79-95I79:41:09 [facility] 2023-06-03 11:10:00 [id number]/mKwUaniy7GvLe fasJInERw0Iv +3VIKrayHnCEPC0bj37NuxXd2853-84-02C15:10:718656-[address] [address] PATIENT NAME: NITA MAN ADMIT DATE: 06/03/23ACCOUNT NO: [id number] ROOM NO: L.PO8 AGE: 82 REPORT TYPE: OPERATIVE REPORT SEX: F ADMITTING PHYSICIAN: Vero Ortega MD ATTENDING PHYSICIAN: Vero Ortega MD OPERATION DATE: 06/03/2023 PREOPERATIVE DIAGNOSES: Recurrent anterior wall and vault prolapse, stress urinary incontinence, overactive bladder and urge incontinence, recurrent bladder infections. POSTOPERATIVE DIAGNOSES: Recurrent anterior wall and vault prolapse, stress urinary incontinence, overactive bladder and urge incontinence, recurrent bladder infections. PROCEDURES PERFORMED: Complete vaginal colpocleisis, perineorrhaphy and urethral bulking with Bulkamid and cystoscopy. SURGEON: Vero Ortega MD INSERTING OPERATOR: Jaylin Matos. ANESTHESIA: General. SPECIMENS: No specimens. COMPLICATIONS: No complications. DRAINS: Bolden catheter, 14-Marshallese, no vaginal packing. FINDINGS: POP-Q 0, 0, and -1, 5.5, moderate and 5-6 cm, -1, -2 ____. Perineal body was moderate and the defect in the perineum was also present and needed a perineorrhaphy in order for the tension on the colpocleisis closure to be decreased. Urethral bulking, 1.2 mL of Bulkamid was injected. On cystoscopy, there was a small area at the top of the trigone slightly closer to the right ureteric orifice that had irregular transitional epithelium, not grossly obviousfor any tumor; however, this must be followed in 3 months postop. Both uretericorifices had strong jets of urine. No evidence of any trauma or foreign body inthe bladder. INDICATIONS: The patient is an 82-year-old female who had an abdominal hysterectomy, BSO 20 years ago, which was followed by a prolapse repair, which the patient described as a bladder lift. Subsequently, she had another repair few years later, has been complaining of recurrent bladder infections, incontinence, and urinary frequency. On examination, she had anterior wall and vault prolapse small posterior defect and mixed incontinence. She was evaluatedwith urodynamic testing, which showed low urethral pressure. Her bladder PATIENT NAME: NITA MAN emptying on the test was unremarkable and bladder pressures were slightly low. Capacity significantly decreased. On cystoscopy, there were signs of epithelialinflammation at the time. She was treated for a bladder infection later. No repeat cystoscopy was performed until today. Abdominal ultrasound did not have any pelvic masses. She was given options of observation. Pessary would not fit with her vaginal length and anatomy of her vaginal prolapse at this time, so this was discussed with the patient and her family, especially her 2 daughters were present at multiple appointments with her. Then, we discussed about vaginal closure procedure with a possible sling or urethral bulking at the time to decrease the NATO. The patient wanted to proceed with surgical treatment and was understanding of the permanent closure of the vagina and inability to ever have vaginal intercourse. Once this was confirmed, she was cleared by Dr. Eagle, her boathouse keeper. She had a carotid artery stent in 07/2022. No other cardiac issues at this time and she was brought to the OR. DESCRIPTION OF PROCEDURE: She was to be consenting her this morning and ____ her daughters were present, questions and answers were done to their satisfaction and she was taken back to the OR, placed in supine fashion on the operating table. General anesthesia was given. She was placed in dorsal lithotomy position using Eric stirrups. Lower abdomen, vulva, vagina, and perineum were prepped and draped in a sterile fashion. A 2 grams of Ancef were given. Timeout was done. SCDs were started and then a Bolden catheter was placed to drain her bladder. This was clamped and retracted superiorly. On close examination of the vaginal canal, the POP-Q is as above. It was clear that the paravaginal defect on the right was significantly more prominent and the apical suspension has also loosened up in this area. On the left side, the colpopexy was still holding. I suspect that there is mesh under the anterior wall definitely under the urethra in the mid urethral area; this was palpable, most likely a transobturator sling. Once the evaluation was done, I proceeded with marking out the anterior and posterior vaginal mix and the vault with a marking pen. The areas that would need the vaginectomy in order for me to closethe mix together. Once this was drawn out, dilute vasopressin 20 units in 50 mL of normal saline, 25-30 mL was used on the anterior wall, all 4 borders at the level of the UVJ and at the wall and on sidewalls were all incised with a #15 blade. The vagina and the epithelium and subepithelium were excised from the underlying connective tissues and the bladder. Once all this was taken out,hemostasis was secured with the Bovie and then similar dissection was performed of the posterior wall. The markings were drawn out in the posterior wall as well, making sure there is at least 2 cm of the distal vagina that was left intact, which also equates to the urethra lying, so this part was to be connected to the area under the UVJ. Once the vaginectomy was completed from the posterior wall and at the apex, which is at the vault, the vaginal closure of the anterior and posterior mix was done with lhfpcl-td-pkxat 2-0 Vicryl sutures. After doing a running continuous suture of the vault and onto the right lateral wall. The left lateral wall was also closed with the help of continuous running 2-0 and then interrupted 2-0 rtgkjh-ju-rbwmj sutures in 3 layers to close the anterior and posterior vaginal mix and to make them symmetric. Then, 5 sutures were placed, one xdyezf-sd-gvpvh and 3 horizontal mattress sutures in order to bring the anterior and posterior vaginal epithelial edges together. The flaps were PATIENT NAME: NITA MAN raised to advance the epithelial edges to take the tension off. Once the closure was done, the [place] retractor needles were removed to inspect the amount of tension on the sutures. Once this was done, there was satisfactory closure. PERINEORRHAPHY: Vasopressin was injected here again in another 20 mL. A very narrow jess-shaped incision was made on the vaginal epithelium and the vestibular epithelium. This was excised with a #15 blade. The flaps were raised on both sides. The underlying connective tissue and scar were dissected. This was to bring the perineal body significantly together and hold up the colpocleisis. Three 2-0 Vicryl interrupted sutures were placed and tied down, then 3-0 Vicryl was used in a continuous running fashion from the top down and then the subcuticular fashion bottom up. Rectal exam was performed and was negative. The bladder was drained, opening up to 16-Marshallese Bolden. The Bolden was removed. Urethral bulking sheath was taken from the Bulkamid kit, attached to a pediatriccystoscope. Normal saline was attached as well. Then, after filling the bladder and visualizing the bladder and there was a slight irregularity on the epithelium close to the right UO on the trigone at the top of the trigone, the rest of the epithelium was unremarkable, no tumors, good jets of urine from bothureteric orifices. Bladder was then drained again and with a brisk flow on the cystoscope. Urethrawas entered at the level of the internal meatus leaving the tip of the sheath here. The needle was advanced 2 cm into the bladder. Then, this entire system was pulled out such that I was 2 cm proximal to the internal meatus in the mid urethral area. The needle was taken and inserted at least 3/4th of a centimeterunder the urethral epithelium at 04:00 o'clock, 02:00 o'clock, 10 and 7 o'clock positions and 1.2 mL of the Bulkamid agent was injected without any problems. There was good coaptation of the urethral epithelium at this level and I was satisfied with the amount of bulking. The scope was removed. The bulking agentwas removed. Then, a 14-Marshallese Bolden was inserted into the bladder and left fordrainage. All the instrument, needle and sponge counts were correct at the end of the case. The patient tolerated the procedure well. She was recovered from anesthesia and taken to PACU in a stable condition. Her family of 4 daughters that were waiting and were debriefed about her procedure. She will have a voiding trial in the morning and be discharged home thereafter. She has a 1 week and 6-week followup appointments at the office already made. ESTIMATED BLOOD LOSS: 100 mL. URINE OUTPUT: 400 and Ringer's lactate 1000. Dictated By: Vero Ortega MD Date Dictated: 06/03/2023 11:10:18Date Transcribed: 06/03/2023 14:26:42EULA/LEONIDES/TALIA/Arash #: [id number] ID: [id number] by Vero Ortega MD On 07/01/2023 05:32:45 PM PATIENT NAME: NITA MAN at 0532 PATIENT NAME: NITA MAN tmubli7867-25-52T30:26:00L.[id number] le for patient gajwCHJOOIYNDVNNTX6831-79-62G73:33:15 H CAPM 2023-05-23 13:12:00 [id number]/AcJBn6+GU6EZ 8IdIZ2DZfkHD WKlzVm0+vGz5OrL+0k7CVZC18699-29-82Y45:12:021178-2063 [place] [address] PATIENT NAME: NITA MAN ADMIT DATE: 06/03/23ACCOUNT NO: [id number] ROOM NO: [facility] AGE: 82 REPORT TYPE: eELECTROCARDIOGRAM SEX: F ADMITTING PHYSICIAN: Vero Ortega MD ATTENDING PHYSICIAN: Vero Ortega MD Order:[id number] Reason : PRE OP Test Date/Time Stamp:SatMay 23 2023 13:12:04Blood Pressure : / mmHGVent. Rate : 068 BPM Atrial Rate : 068 BPM P-R Int : 174 ms QRS Dur : 130 ms QT Int : 456 ms P-R-T Axes : 056 -24 017 degrees QTc Int : 484 ms Normal sinus rhythmRight bundle branch blockAbnormal ECGWhen compared with ECG of 20-JUL-2022 13:55,Inverted T waves have replaced nonspecific T wave abnormality in Anterior leadsConfirmed by LIZZY LOUISE ([id number]) on 06/10/2023 6:00:42 AM Referred By: Vero Ortega Confirmed by:LIZZY LOUISE at 0600 PATIENT NAME: NITA MAN .[id number] orilable for patient ayqoHPUDMWIIDOSSBF6357-67-09Q70:01:10 [facility] 2022-07-24 10:36:00 [id number] Fsi3XsuR+YDN DhbZob0mlxK6TdARk5f5iB615830-55-58J71:36:00 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 * all edits or amendments must be made on the electronic/computer document * pcp pcppcp:pcp: vikram orr v, md discharge to: home general informationdate of admission:observation start date: date of admission: 07/23/22 discharge date: 07/24/22admission diagnosis:severe right carotid stenosis discharge diagnosis:severe right carotid stenosis s/p right cea hospital course:very pleasant 81-year-old female with past medical history of hypertension, hyperlipidemia, diabetes who was getting cardiac clearance for endoscopic procedure and was found to have severe right carotid stenosis on cerebral angiogram performed on 06/18/[address] eagle. [facility]. no postoperative complications, denies headache, no cranial nerve deficits or focal deficits. right neck incision with edges well approximated, no hematoma. yumi drain removed. creatinine 1.4 from 1.1, creatinine preop 1.6, unclear if patient has chronic kidney disease. plan for iv fluid hydration and repeat labs later today. antibiotics for uti. patient and family advised to follow-up with primary care doctor and cardiology as outpatient. will discharge patient home if creatinine stable.follow-up with dr. angeles in 1 to 2 weeksconsultants: critical/mail delivery supervisor, hospitalist, vascular surgery med rec pcppcp:pcp: vikram orr v, md med recdischarge meds:continue taking these medications:risperidone (risperdal) 0.25 mg tab milligram oral daily. pregabalin (lyrica) 25 mg cap milligram oral three times a day. trazodone (desyrel) 50 mg tab 50 milligram oral bedtime. trazodone (desyrel) 50 mg tab milligram oral bedtime. montelukast (singulair) 4 mg granules milligram oral daily. isosorbide mononitrate (monoket) 10 mg tab milligram oral daily. pantoprazole dr (protonix) 20 mg tab.dr milligram oral daily. atorvastatin (lipitor) 10 mg tab milligram oral daily. losartan (cozaar) 25 mg tab milligram oral daily. objectivevs/i olast documented: result date time pulse ox 98 07/24 0800 b/p 141/66 07/24 0800 b/p mean 95 07/24 0800 pulse 73 07/24 0800 resp 17 07/24 0800 temp 98.0 07/24 0449 o2 delivery room air 07/23 0855 24 hour i o ending at 0700: 07/24 0700 07/23 1900 intake total 900.00 450 output total 666 1120 balance 234.00 -670 intake, iv 300.00 intake, oral 600 intake, other 450 output, 16 drainage output, urine 650 1120 patient weight: weight (lb): 163weight (oz): 12.86weight (kg): 73.936 general appearance: alert, oriented, pleasant, mental status normal, no respiratory distresshead/eyes: atraumaticent: moist mucosal membranesneck: non-tendercardiovascular: regular rate rhythm, normal heart soundsrespiratory: clear to auscultation, aerating well, symmetric expansiongi: soft, non-tenderextremities: moves all, no edema-all extremitiespsychiatry: normal affect, normal judgment/insight resultsfindings/data:laboratory tests: 07/24 07/24 07/23 07/23 07/23 0400 0400 1958 1110 1108chemistry sodium (134 - 147 meq/l) 134 139 potassium (3.4 - 5.0 meq/l) 3.8 3.8 chloride (100 - 108 meq/l) 101 106 carbon dioxide (21 - 33 meq/l) 26 25 anion gap (0 - 20) 11 12 bun (7 - 18 mg/dl) 22 h 18 creatinine (0.6 - 1.3 mg/dl) 1.4 h 1.1 glomerular filtr rate (70 - 80) 36.0 l 47.6 l glucose (70 - 110 mg/dl) 124 h 169 h poc glucose (70 - 110 mg/dl) 186 h 149 h hemoglobin a1c (4.8 - 6.0 %a1c) 5.5 calcium (8.0 - 10.5 mg/dl) 8.3 8.7 ionized calcium keith (1.09 - 1.30 mmol/l) 1.11 phosphorus (2.5 - 4.9 mg/dl) 4.2 magnesium (1.80 - 2.40 mg/dl) 1.46 lhematology wbc (4.5 - 11.0 x10 3/ul) 10.8 rbc (3.54 - 5.02 x10 6/ul) 3.11 l hgb (11.0 - 15.0 g/dl) 9.9 l 10.9 l hct (33.0 - 45.0 %) 28.5 l 31.7 l mcv (81.0 - 99.0 fl) 91.6 mch (27.0 - 33.0 pg) 31.8 mchc (33.0 - 37.0 g/dl) 34.7 rdw (11.5 - 14.5 %) 13.6 plt count (150 - 400 x10 3/ul) 202 mpv (7.0 - 9.0 fl) 9.7 h neut % (auto) (56.0 - 77.0 %) 81.9 h lymph % (auto) (14.0 - 32.0 %) 10.7 l mono % (auto) (4.8 - 9.0 %) 6.7 eos % (auto) (0.3 - 3.7 %) 0.2 l baso % (auto) (0.0 - 2.0 %) 0.1 neut # (auto) (2.0 - 7.6 x10 3/ul) 8.86 h lymph # (auto) (1.0 - 3.8 x10 3/ul) 1.16 mono # (auto) (0.1 - 0.8 x10 3/ul) 0.72 eos # (auto) (0.0 - 0.2 x10 3/ul) 0.02 baso # (auto) (0.0 - 0.2 x10 3/ul) 0.01 abs immat gran (auto) (0.00 - 0.03 0.04 hx10 3/ul) add manual diff no immature gran % (0.0 - 2.0 %) 0.4 nucleated rbc % (0 - 0 %) 0.0 nucleated rbcs # (man) (0.0 - 0.1 0.00x10 3/ul) radiology data:recent impressions:radiology - xr chest 1 v 07/24 620 report impression - status: signed entered: 07/24/2022826 impression: no acute abnormality in the chest. large retrocardiac hiatus hernia. impression by: shirleneabSaroj whitaker m.d. treatments procedureslab:chemistry last 24 hrs: 07/24 07/23 0400 1110 chemistry sodium (134 - 147 meq/l) 134 139 potassium (3.4 - 5.0 meq/l) 3.8 3.8 chloride (100 - 108 meq/l) 101 106 bun (7 - 18 mg/dl) 22 h 18 creatinine (0.6 - 1.3 mg/dl) 1.4 h 1.1 glucose (70 - 110 mg/dl) 124 h 169 h chemistry last 24 hrs: 07/24 0400 chemistry hemoglobin a1c (4.8 - 6.0 %a1c) 5.5 hematology last 24 hrs: 07/24 07/23 0400 1110 hematology wbc (4.5 - 11.0 x10 3/ul) 10.8 hgb (11.0 - 15.0 g/dl) 9.9 l 10.9 l hct (33.0 - 45.0 %) 28.5 l 31.7 l plt count (150 - 400 x10 3/ul) 202 neut % (auto) (56.0 - 77.0 %) 81.9 h imaging:recent impressions:radiology - xr chest 1 v 07/24 620 report impression - status: signed entered: 07/24/2022 0827 impression: no acute abnormality in the chest. large retrocardiac hiatus hernia. impression by: mai whitaker m.d. 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 maker electronically signed by julian gama np on 07/24/22 at 1433electronically signed by rusty angeles md on 07/25/22 at 1307 rpt #:[id number] of reportDSDischarge iisotfz6331-27-75K55:36:00G.RKPU51460108-2940KSEewtr able for patient njjuGNCWXJQWJDSNLD5911-52-84R31:33:39 [facility] 2022-07-24 10:13:00 [id number]O JfjX2UkzJKgM 6SNazjT3zUr9fSTkkhpXTllm6652-13-90Y76:13:00 [facility] progress notereport#:[id number] report status: signeddate:07/24/22 time: 1013 patient: nita man unit #: [id number]#: [id number] [address] age: 81 sex: f attend: rusty angeles [facility] dt: 07/23/22 author: riccardo kendall * all edits or amendments must be made on the electronic/computer document * subjectivechief complaint:right carotid stenosis. s/p right ceahpi:ms. man is a 81-year-old female patient who was admitted to ccu after an elective right carotid endarterectomy due to severe right carotid stenosis on cerebral angiogram. she has a past medical history significant for hypertension,hyperlipidemia, diabetes, neuropathy, previous right knee surgery and cholecystectomy. she was seen and examined at the bedside, she is awake and oriented, follows commands, no headache or focal weakness, speech is fluent. reports mild muscle cramping to left lower extremity. bp 128/60, sr 62. patient reports:no: complaints. nursing reports:no: complaints. objective generalvs/i olast documented: result date time pulse ox 98 07/24 0800 b/p 141/66 07/24 0800 b/p mean 95 07/24 0800 pulse 73 07/24 0800 resp 17 07/24 0800 temp 98.0 07/24 0449 o2 delivery room air 07/23 0855 24 hour i o ending at 0700: 07/24 0700 07/23 1900 intake total 900.00 450 output total 666 1120 balance 234.00 -670 intake, iv 300.00 intake, oral 600 intake, other 450 output, 16 drainage output, urine 650 1120 patient weight: weight (lb): 163weight (oz): 12.86weight (kg): 74.300 medications:active meds + dc'd last 24 hrslosartan potassium (cozaar) 25 mg daily po (can) montelukast sodium (montelukast sodium) 4 mg daily po (ckd) fosfomycin tromethamine (monurol) 3 g once one po (dc) sodium chloride (sodium chloride 0.9%) 1,000 ml .w96m49l iv magnesium sulfate (magnesium sulfate 4gm/swfi 100ml) 100 ml once one iv (dc) simethicone (mylanta gas) 160 mg once one po (dc) atorvastatin calcium (lipitor) 10 mg bedtime po docusate sodium (colace) 100 mg bid po insulin human lispro (humalog) 0 ac hs subq mupirocin (bactroban 2% 22 gm ointment) 1 applic bid nasal trazodone hcl (desyrel) 50 mg bedtime po piperacillin sod/tazobactam sod (zosyn 3.375gm) 3.375 gm q8h iv (dc) sodium chloride (sodium chloride 0.9% 100 ml) 100 mldextrose/water (dextrose 50% w syringe) 25 ml asdir prn iv (ckd) dextrose/water (dextrose 50% w syringe) 50 ml asdir prn iv (ckd) glucagon (glucagon) 1 mg asdir prn im hydralazine hcl (apresoline) 10 mg q6h prn prn iv pregabalin (lyrica) 25 mg tid po isosorbide mononitrate (isosorbide mononitrate) 10 mg daily po pantoprazole (protonix) 40 mg daily@0600 po acetaminophen (tylenol) 650 mg q4h prn prn po tramadol hcl (ultram) 25 mg q4h prn prn po bisacodyl (dulcolax) 10 mg daily prn prn rectal magnesium hydroxide (milk of magnesia) 30 ml q6h prn prn po ondansetron hcl (zofran) 4 mg q6h prn prn iv fentanyl citrate (sublimaze) 100 mcg pacu q10min prn prn iv (dc) fentanyl citrate (sublimaze) 50 mcg pacu q10min prn prn iv (dc) hydralazine hcl (apresoline) 5 mg pacu q10min prn prn iv (dc) hydrocodone bitart/acetaminophen (norco 5/325) 1 tab pacu once po (dc) hydromorphone hcl (dilaudid) 1 mg pacu q10min prn prn iv (dc) hydromorphone hcl (dilaudid) 0.5 mg pacu q5min prn prn iv (dc) insulin human lispro (humalog) 0 pacu once prn subq (dc) labetalol hcl (labetalol hcl) 5 mg pacu q10min prn prn iv (dc) lactated ringer's (lactated ringers) 1,000 ml .q24h iv (dc) ondansetron hcl (zofran) 4 mg pacu once prn iv (dc) ropivacaine (naropin 0.5% 150 mg/30ml) 150 mg asdir prn local (dc) tramadol hcl (ultram) 50 mg pacu once po (dc) verapamil hcl (isoptin) 16.6 mg .q24h one iv (dc) heparin sodium (porcine) (heparin sodium) 1,660 unit sodium bicarbonate (sodium bicarbonate) 0.7 ml nitroglycerin/dextrose (nitroglycerin 50mg/d5w 250ml) 8.3 mg lactated ringer's (lactated ringers) 949.5 mlcefazolin sodium (kefzol or ancef) 1 gm preop oncall iv (dc) sodium chloride (sodium chloride) 10 mlacetaminophen (tylenol extra strength) 1,000 mg preop oncall po (dc) gabapentin (neurontin) 200 mg preop oncall po (dc) lactated ringer's (lactated ringers) 1,000 ml preop oncall iv (dc) lidocaine hcl (lidocaine hcl/pf) 2 ml preop oncall local (dc) lidocaine hcl (lidocaine hcl/pf) 2 ml preop oncall local (dc) sodium chloride (sodium chloride 0.9%) 500 ml preop oncall iv (dc) sodium chloride (sodium chloride 0.9%) 500 ml preop oncall iv (dc) sodium chloride (sodium chloride 0.9%) 1,000 ml preop oncall iv (dc) sodium chloride (sodium chloride) 5 ml asdir prn iv (dc) sodium chloride (sodium chloride) 10 ml asdir prn iv (dc) sodium chloride (sodium chloride 0.9%) 250 ml asdir prn iv (dc) post-op: day 1status post:right ceaantibiotics: day 1nutrition assessment:the data set between the solid lines has been imported from the dietitian's assessment. any exceptions have been noted under provider comments. bmi calculated: 34.2nutrition related diagnosis: nutrition diagnosis details: nutrition problem: nutrition etiology: nutrition signs and symptoms: nutrition prescription: dietitian name: assessment completed: provider comments on imported dietitian assessment: resultsfindings/data:laboratory tests 07/24 07/24 07/23 07/23 07/23 0400 0400 1958 1110 1108chemistry sodium (134 - 147 meq/l) 134 139 potassium (3.4 - 5.0 meq/l) 3.8 3.8 chloride (100 - 108 meq/l) 101 106 carbon dioxide (21 - 33 meq/l) 26 25 anion gap (0 - 20) 11 12 bun (7 - 18 mg/dl) 22 h 18 creatinine (0.6 - 1.3 mg/dl) 1.4 h 1.1 glomerular filtr rate (70 - 80) 36.0 l 47.6 l glucose (70 - 110 mg/dl) 124 h 169 h poc glucose (70 - 110 mg/dl) 186 h 149 h hemoglobin a1c (4.8 - 6.0 %a1c) 5.5 calcium (8.0 - 10.5 mg/dl) 8.3 8.7 ionized calcium keith (1.09 - 1.30 mmol/l) 1.11 phosphorus (2.5 - 4.9 mg/dl) 4.2 magnesium (1.80 - 2.40 mg/dl) 1.46 l laboratory tests 07/24 07/23 0400 1110 hematology wbc (4.5 - 11.0 x10 3/ul) 10.8 rbc (3.54 - 5.02 x10 6/ul) 3.11 l hgb (11.0 - 15.0 g/dl) 9.9 l 10.9 l hct (33.0 - 45.0 %) 28.5 l 31.7 l mcv (81.0 - 99.0 fl) 91.6 mch (27.0 - 33.0 pg) 31.8 mchc (33.0 - 37.0 g/dl) 34.7 rdw (11.5 - 14.5 %) 13.6 plt count (150 - 400 x10 3/ul) 202 mpv (7.0 - 9.0 fl) 9.7 h neut % (auto) (56.0 - 77.0 %) 81.9 h lymph % (auto) (14.0 - 32.0 %) 10.7 l mono % (auto) (4.8 - 9.0 %) 6.7 eos % (auto) (0.3 - 3.7 %) 0.2 l baso % (auto) (0.0 - 2.0 %) 0.1 neut # (auto) (2.0 - 7.6 x10 3/ul) 8.86 h lymph # (auto) (1.0 - 3.8 x10 3/ul) 1.16 mono # (auto) (0.1 - 0.8 x10 3/ul) 0.72 eos # (auto) (0.0 - 0.2 x10 3/ul) 0.02 baso # (auto) (0.0 - 0.2 x10 3/ul) 0.01 abs immat gran (auto) (0.00 - 0.03 x10 3/ul) 0.04 h add manual diff no immature gran % (0.0 - 2.0 %) 0.4 nucleated rbc % (0 - 0 %) 0.0 nucleated rbcs # (man) (0.0 - 0.1 x10 3/ul) 0.00 laboratory tests 07/24/22 0400:[embedded image not available] 07/23/22 1110:[embedded image not available]microbiology:07/23 0618 nasal: mrsa dna surveillance screen - comp radiology datarecent impressions:radiology - xr chest 1 v 07/24 620 report impression - status: signed entered: 07/24/2022826 impression: no acute abnormality in the chest. large retrocardiac hiatus hernia. impression by: shirleneabSaroj whitaker m.d. free text obj notesfree text obj notes:physical examination:general: up to chair, not in distressheent: nc/at, decreased vision, moist mucous membranes. right neck surgical site, dressedcv: rrr, s1/s2, no murmurslungs: symetrical expansion, no wheezing/rales, normal work of breathinggi: obese, soft, nt/nd, bowel sounds presentgu: no flank pain, voidingskin: warm, no colette, no cyanosi, r neck surgical site, c/d/ineuro: no x3, speech is fluent, no motor or sensory deficits notedpsych: calm treatment prophylaxis treatment prophylaxisoxygen: room airanti-infectives: piperacillin-tazobactamulcer prophylaxis: pantoprazole diagnosis, assessment planfree text a p:ms. man is a 81-year-old female patient who was admitted to ccu after an elective right carotid endarterectomy due to severe right carotid stenosis on cerebral angiogram. she has a past medical history significant for hypertension,hyperlipidemia, diabetes, neuropathy, previous right knee surgery and cholecystectomy. 07/24-no acute events overnight. hemodynamically stable, no fever, yumi drain was removed. problems:cva right carotid stenosisstatus post right ceahypertensionhyperlipidemiadiabetesdiabetes neuropathyobesity plan:ccu statusas needed pain controlneurovascular checks per unit protocolneck circumferential checksaspirin/plavix per vascularstatinprn hydralazine for sbp >150bun/creatinine rising, will start gentle hydration with ns at 75ml; repeat bmp at 2 pmreplete electrolytes as neededtolerating diethemoglobin 9.9 today, monitor and transfuse if less than 7monitor surgical site for bleeding; yumi drain removedglycemic control with iss, accu-cheks. a1c 5.5patient was started on iv zosyn due to urine culture positive for proteus m; discussed with surgery and pharmacist; patient likely to go home today- will switch to fosfomycin 3gdvt prophylaxis: scds. home dose ppimobilize with pt/otdispo: home with familyicc signing off.patient is a full codei spent 30 minutes of critical care reviewing labs, imaging and discussing plansof care with mail delivery supervisor, interdisciplinary team orders: procedure date/time status basic metabolic panel 07/24 1400 active ot: pocc - ot staff only 07/24 0843 active eval ot high complex [id number] 07/24 0843 active adl 15 min 07/24 unk complete consultants: critical/mail delivery supervisor, hospitalist, vascular surgerycode status: full codeplan discussed with: patient, family, collaborating md, consultants, nurse, interdisc care team, pharmacy/pharmacistcritical care time: minutes: 30 electronically signed by riccardo kendall on 07/24/22 at 1029 rpt #:[id number] of reportPRProgress dalf7776-47-44V78:13:00G.[id number] e for patient szkcZMUIYBFBIUXXIC1772-48-78O24:29:47 [facility] 2022-07-23 13:16:00 [id number]/wvJ5dJCfudOZXYitscECUu LYLneBxzI7g1 c9/bfYY0LZGjWDUgli+VqUpb6103-06-47W21:16:00 [facility])critical care consult notereport#:[id number] report status: signeddate:07/23/22 time: 1316 patient: nita man unit #: [id number]#: [id number] [address] age: 81 sex: f attend: rusty angeles [facility] dt: 07/23/22 author: riccardo kendall * all edits or amendments must be made on the electronic/computer document * see addendumhistory of present illness hpirequesting clinician: julian gama npreason for consult:icu mgtchief complaint:right carotid stenosis.s/p right ceahpi:ms. man is a 81-year-old female patient who was admitted to ccu after an elective right carotid endarterectomy due to severe right carotid stenosis on cerebral angiogram. she has a past medical history significant for hypertension,hyperlipidemia, diabetes, neuropathy, previous right knee surgery and cholecystectomy. she was seen and examined at the bedside, she is awake and oriented, follows commands, no headache or focal weakness, speech is fluent. reports mild muscle cramping to left lower extremity. bp 128/60, sr 62. history - adult longitudinaladditional medical history:hypertension, hyperlipidemia, diabetes, diabetic neuropathypast surgical history:reports: cholecystectomy, knee procedure. additional surgical history:bilateral cataract surgeryadditional family history:noncontributoryalcohol use: denies etoh usedrug use: denies recreational drugssmoking status: smoking status for patients 13 years old or older: never smokeradditional social history:has good family support. she lives at home with daughtermedications:home medications: medication dose/rte/freq days qty entered last max daily dose reviewed risperidone (risperdal) 07/20/22 strength: 0.25 mg tab 1441 pregabalin (lyrica) 07/20/22 strength: 25 mg cap 1442 trazodone (desyrel) 50 mg po bedtime 07/20/22 strength: 50 mg tab 1442 trazodone (desyrel) 07/20/22 strength: 50 mg tab 1442 montelukast (singulair) 07/20/22 strength: 4 mg granules 1442 isosorbide 07/20/22 mononitrate 1442 (monoket) strength: 10 mg tab pantoprazole 07/20/22 (protonix) 1443 strength: 20 mg tab. atorvastatin (lipitor) 07/20/22 strength: 10 mg tab 1443 losartan (cozaar) 07/20/22 strength: 25 mg tab 1444 current hospital medications:anti-infective agents sig/mak start time last medication dose route stop time status admin cefazolin sodium 0 .stk-med one 07/23 0717 dc (kefzol or ancef) .route cefazolin sodium 1 gm preop oncall 07/23 0500 dc (kefzol or ancef) iv 07/23 2359 sodium chloride 10 ml (sodium chloride) autonomic drugs sig/mak start time last medication dose route stop time status admin glycopyrrolate 0 .stk-med one 07/23 0831 dc (glycopyrrolate) .route neostigmine 0 .stk-med one 07/23 08 dc methylsulfate .route (prostigmin) glycopyrrolate 0 .stk-med one 07/23 0723 dc (glycopyrrolate) .route neostigmine 0 .stk-med one 07/23 0723 dc methylsulfate .route (prostigmin) ephedrine sulfate 0 .stk-med one 07/23 0716 dc (ephedrine sulfate) .route phenylephrine hcl 250 ml .stk-med one 07/23 0648 dc (phenylephrine 30 mg/ iv ns 250 ml) phenylephrine hcl 0 .stk-med one 07/23 0644 dc (olga-synephrine i-javier 1000mcg/ns 10ml inj) rocuronium bromide 0 .stk-med one 07/23 0644 dc (zemuron) iv blood formation,coagulation sig/mak start time last medication dose route stop time status admin protamine sulfate 0 .stk-med one 07/23 0831 dc (protamine sulfate) iv heparin sodium 0 .stk-med one 07/23 0644 dc (heparin sodium) .route heparin sodium 0 .stk-med one 07/23 0624 dc (heparin sodium) .route thrombin 0 .stk-med one 07/23 0624 dc (recothrom) topical cardiovascular drugs sig/mak start time lastmedication dose route stop time status adminlosartan potassium 25 mg daily 07/24 0900 ac (cozaar) po 08/23 0859atorvastatin calcium 10 mg bedtime 07/23 2100 ac (lipitor) po 08/23 0859isosorbide 10 mg daily 07/23 1200 ac 07/23mononitrate po 08/22 1159 1229 (isosorbidemononitrate)hydralazine hcl 5 mg pacu q10min prn prn 07/23 0900 ac (apresoline) iv 07/23 1900labetalol hcl 5 mg pacu q10min prn prn 07/23 0900 ac (labetalol hcl) iv 07/23 1900esmolol hcl 0 .stk-med one 07/23 0755 dc (brevibloc) ivnitroglycerin/ 250 ml .stk-med one 07/23 0650 dcdextrose iv (iycjenesoyyyh45,000mcg/d5w 250ml)lidocaine hcl 0 .stk-med one 07/23 0644 dc (xylocaine) .routelidocaine hcl 0 .stk-med one 07/23 0624 dc (xylocaine iv) ivmetoprolol tartrate 6.25 mg once 07/23 0600 dc 07/23 (lopressor) po 07/23 0800 0600verapamil hcl 16.6 mg .q24h one 07/23 0600 ckd (isoptin) iv 07/24 0559heparin sodium 1,660 unit (porcine) (heparin sodium)sodium bicarbonate 0.7 ml(sodium bicarbonate)nitroglycerin/ 8.3 mgdextrose(nitroglycerin 50mg/d5w 250ml)lactated ringer's 949.5 ml (lactated ringers)metoprolol tartrate 0 .stk-med one 07/23 0553 dc (lopressor) .routelidocaine hcl 2 ml preop oncall 07/20 1415 dc (lidocaine hcl/pf) local 08/19 2359lidocaine hcl 2 ml preop oncall 07/20 1415 dc (lidocaine hcl/pf) local 08/19 2359 central nervous system agents sig/mak start time lastmedication dose route stop time status admintrazodone hcl 50 mg bedtime 07/23 2100 ac (desyrel) po 08/22 2059pregabalin 25 mg tid 07/23 1500 ac (lyrica) po 08/22 1459acetaminophen 650 mg q4h prn prn 07/23 1100 ac (tylenol) po 08/22 1059tramadol hcl 25 mg q4h prn prn 07/23 1100 ac 07/23 (ultram) po 07/28 1059 1238fentanyl citrate 0 .stk-med one 07/23 0913 dc (sublimaze) .routefentanyl citrate 100 mcg pacu q10min prn prn 07/23 0900 ac (sublimaze) iv 07/23 1900fentanyl citrate 50 mcg pacu q10min prn prn 07/23 0900 ac 07/23 (sublimaze) iv 07/23 190 0921hydrocodone bitart/ 1 tab pacu once 07/23 09 ckdacetaminophen po 07/23 1900 (norco 5/325)hydromorphone hcl 1 mg pacu q10min prn prn 07/23 0900 ac (dilaudid) iv 07/23 1900hydromorphone hcl 0.5 mg pacu q5min prn prn 07/23 0900 ac (dilaudid) iv 07/23 1900tramadol hcl 50 mg pacu once 07/23 0900 ckd (ultram) po 07/23 1900fentanyl citrate 0 .stk-med one 07/23 0644 dc (sublimaze) .routepropofol 20 ml .stk-med one 07/23 0644 dc(diprivan 200mg/20ml ivinjection)gabapentin 0 .stk-med one 07/23 0553 dc (neurontin) .routeacetaminophen 0 .stk-med one 07/23 0552 dc (tylenol extra .routestrength)acetaminophen 1,000 mg preop oncall 07/20 1415 dc 07/23 (tylenol extra po 08/19 2359 0601strength)gabapentin 200 mg preop oncall 07/20 1415 dc 07/23 (neurontin) po 08/19 235 0600 electrolytic, caloric, and rain sig/mak start time last medication dose route stop time status admin lactated ringer's 1,000 ml .q24h 07/23 0900 ac (lactated ringers) iv 07/23 1900 sodium chloride 500 ml .stk-med one 07/23 0645 dc (sodium chloride iv 0.9%) lactated ringer's 1,000 ml preop oncall 07/20 1415 dc (lactated ringers) iv 08/19 2359 sodium chloride 500 ml preop oncall 07/20 1415 dc (sodium chloride iv 08/19 2359 0.9%) sodium chloride 500 ml preop oncall 07/20 1415 dc (sodium chloride iv 08/19 2359 0.9%) sodium chloride 1,000 ml preop oncall 07/20 141 dc (sodium chloride iv 08/19 2359 0.9%) sodium chloride 5 ml asdir prn 07/20 1415 dc (sodium chloride) iv 08/19 1414 sodium chloride 10 ml asdir prn 07/20 141 dc (sodium chloride) iv 08/19 1414 sodium chloride 250 ml asdir prn 07/20 1415 dc (sodium chloride iv 08/19 1414 0.9%) eye, ear, nose and throat (een sig/mak start time last medication dose route stop time status admin dexamethasone sodium 0 .stk-med one 07/23 0644 dc phosphate .route (decadron) gastrointestinal drugs sig/mak start time last medication dose route stop time status admin docusate sodium 100 mg bid 07/23 2100 ac (colace) po 08/22 205 pantoprazole 40 mg daily@0600 07/23 1200 ac 07/23 (protonix) po 08/22 1159 1229 bisacodyl 10 mg daily prn prn 07/23 1045 ac (dulcolax) rectal 08/22 1044 magnesium hydroxide 30 ml q6h prn prn 07/23 1045 ac (milk of magnesia) po 08/22 1044 ondansetron hcl 4 mg q6h prn prn 07/23 1045 ac (zofran) iv 08/22 1044 ondansetron hcl 4 mg pacu once prn 07/23 0900 ac (zofran) iv 07/23 1900 ondansetron hcl 0 .stk-med one 07/23 0644 dc (zofran) .route hormones and synthetic substit sig/mak start time last medication dose route stop time status admin insulin human lispro 0 pacu once prn 07/23 0900 ac (humalog) subq 07/23 1900 local anesthetics (parenteral) sig/mak start time last medication dose route stop time status admin ropivacaine 150 mg asdir prn 07/23 0900 ac (naropin 0.5% 150 mg/ local 07/23 1900 30ml) respiratory tract agents sig/mak start time last medication dose route stop time status admin montelukast sodium 4 mg daily 07/24 0900 ckd (montelukast sodium) po 08/23 0859 skin and mucous membrane agent sig/mak start time last medication dose route stop time status admin mupirocin 1 applic bid 07/23 2100 unv (bactroban 2% 22 gm nasal 07/28 0901 ointment) allergies:coded allergies:no known allergies (07/20/22) ambulatory status: independent review of systems rosconstitutional:denies: chills, fatigue, fever, generalized weakness, lethargy, malaise, recent wt loss, other. skin:denies: abrasion, bruising, itching, rash, swelling. allergy/immun:denies: allergic reaction, itching, rhinorrhea, sneezing. eyes:reports: visual loss/blurred. denies: itching, photophobia, swelling. ent:denies: sore throat, throat pain. respiratory:reports: sob. denies: hemoptysis, non productive cough. cardiovascular:denies: chest pain, lozano (dyspnea on exertion), edema, palpitations. gi:denies: abdominal pain, constipation, nausea, vomiting. gu:reports: dysuria. denies: flank pain. musculoskeletal:reports: arthritis, myalgias. denies: extremity pain, extremity swelling, neck pain. heme:denies: adenopathy, bleeding, bruising, petechiae. endocrine:denies: polydipsia, polyphagia, polyuria, weight gain, weight loss. neuro:denies: headache, lightheaded, syncope, weakness. psych:denies: agitation, anxiety, insomnia. all systems rev neg: except as marked objective physical examvs/i o:last documented: result date time pulse ox 100 07/23 1254 b/p 154/65 07/23 1254 b/p mean 101 07/23 1254 pulse 68 07/23 1254 resp 11 07/23 1254 temp 98.5 07/23 1000 o2 delivery room air 07/23 0855 patient weight and bmi weight (kg): 74.300 bmi: 34.2 medications:active meds + dc'd last 24 hrslosartan potassium (cozaar) 25 mg daily po (can) montelukast sodium (montelukast sodium) 4 mg daily po (ckd) atorvastatin calcium (lipitor) 10 mg bedtime po docusate sodium (colace) 100 mg bid po mupirocin (bactroban 2% 22 gm ointment) 1 applic bid nasal trazodone hcl (desyrel) 50 mg bedtime po pregabalin (lyrica) 25 mg tid po isosorbide mononitrate (isosorbide mononitrate) 10 mg daily po pantoprazole (protonix) 40 mg daily@0600 po acetaminophen (tylenol) 650 mg q4h prn prn po tramadol hcl (ultram) 25 mg q4h prn prn po bisacodyl (dulcolax) 10 mg daily prn prn rectal magnesium hydroxide (milk of magnesia) 30 ml q6h prn prn po ondansetron hcl (zofran) 4 mg q6h prn prn iv fentanyl citrate (sublimaze) 0 .stk-med one .route (dc) fentanyl citrate (sublimaze) 100 mcg pacu q10min prn prn iv fentanyl citrate (sublimaze) 50 mcg pacu q10min prn prn iv hydralazine hcl (apresoline) 5 mg pacu q10min prn prn iv hydrocodone bitart/acetaminophen (norco 5/325) 1 tab pacu once po (ckd) hydromorphone hcl (dilaudid) 1 mg pacu q10min prn prn iv hydromorphone hcl (dilaudid) 0.5 mg pacu q5min prn prn iv insulin human lispro (humalog) 0 pacu once prn subq labetalol hcl (labetalol hcl) 5 mg pacu q10min prn prn iv lactated ringer's (lactated ringers) 1,000 ml .q24h iv ondansetron hcl (zofran) 4 mg pacu once prn iv ropivacaine (naropin 0.5% 150 mg/30ml) 150 mg asdir prn local tramadol hcl (ultram) 50 mg pacu once po (ckd) glycopyrrolate (glycopyrrolate) 0 .stk-med one .route (dc) neostigmine methylsulfate (prostigmin) 0 .stk-med one .route (dc) protamine sulfate (protamine sulfate) 0 .stk-med one iv (dc) esmolol hcl (brevibloc) 0 .stk-med one iv (dc) glycopyrrolate (glycopyrrolate) 0 .stk-med one .route (dc) neostigmine methylsulfate (prostigmin) 0 .stk-med one .route (dc) cefazolin sodium (kefzol or ancef) 0 .stk-med one .route (dc) ephedrine sulfate (ephedrine sulfate) 0 .stk-med one .route (dc) nitroglycerin/dextrose (nitroglycerin 50,000mcg/d5w 250ml) 250 ml .stk-med one iv (dc) phenylephrine hcl (phenylephrine 30 mg/ns 250 ml) 250 ml .stk-med one iv (dc) sodium chloride (sodium chloride 0.9%) 500 ml .stk-med one iv (dc) dexamethasone sodium phosphate (decadron) 0 .stk-med one .route (dc) fentanyl citrate (sublimaze) 0 .stk-med one .route (dc) heparin sodium (heparin sodium) 0 .stk-med one .route (dc) lidocaine hcl (xylocaine) 0 .stk-med one .route (dc) ondansetron hcl (zofran) 0 .stk-med one .route (dc) phenylephrine hcl (olga-synephrine 1000mcg/ns 10ml inj) 0 .stk-med one i-javier (dc) propofol (diprivan 200mg/20ml injection) 20 ml .stk-med one iv (dc) rocuronium bromide (zemuron) 0 .stk-med one iv (dc) heparin sodium (heparin sodium) 0 .stk-med one .route (dc) lidocaine hcl (xylocaine iv) 0 .stk-med one iv (dc) thrombin (recothrom) 0 .stk-med one topical (dc) metoprolol tartrate (lopressor) 6.25 mg once po (dc) verapamil hcl (isoptin) 16.6 mg .q24h one iv (ckd) heparin sodium (porcine) (heparin sodium) 1,660 unit sodium bicarbonate (sodium bicarbonate) 0.7 ml nitroglycerin/dextrose (nitroglycerin 50mg/d5w 250ml) 8.3 mg lactated ringer's (lactated ringers) 949.5 mlgabapentin (neurontin) 0 .stk-med one .route (dc) metoprolol tartrate (lopressor) 0 .stk-med one .route (dc) acetaminophen (tylenol extra strength) 0 .stk-med one .route (dc) cefazolin sodium (kefzol or ancef) 1 gm preop oncall iv (dc) sodium chloride (sodium chloride) 10 mlacetaminophen (tylenol extra strength) 1,000 mg preop oncall po (dc) gabapentin (neurontin) 200 mg preop oncall po (dc) lactated ringer's (lactated ringers) 1,000 ml preop oncall iv (dc) lidocaine hcl (lidocaine hcl/pf) 2 ml preop oncall local (dc) lidocaine hcl (lidocaine hcl/pf) 2 ml preop oncall local (dc) sodium chloride (sodium chloride 0.9%) 500 ml preop oncall iv (dc) sodium chloride (sodium chloride 0.9%) 500 ml preop oncall iv (dc) sodium chloride (sodium chloride 0.9%) 1,000 ml preop oncall iv (dc) sodium chloride (sodium chloride) 5 ml asdir prn iv (dc) sodium chloride (sodium chloride) 10 ml asdir prn iv (dc) sodium chloride (sodium chloride 0.9%) 250 ml asdir prn iv (dc) resultsfindings/data:laboratory tests 07/23/22 1110:[embedded image not available]laboratory tests 07/23 07/23 07/23 1110 1108 0857 chemistry sodium (134 - 147 meq/l) 139 potassium (3.4 - 5.0 meq/l) 3.8 chloride (100 - 108 meq/l) 106 carbon dioxide (21 - 33 meq/l) 25 anion gap (0 - 20) 12 bun (7 - 18 mg/dl) 18 creatinine (0.6 - 1.3 mg/dl) 1.1 glomerular filtr rate (70 - 80) 47.6 l glucose (70 - 110 mg/dl) 169 h poc glucose (70 - 110 mg/dl) 149 h 145 h calcium (8.0 - 10.5 mg/dl) 8.7 laboratory tests 07/23 0748 coagulation activated coag time (74 - 137 sec) 312 h laboratory tests 07/23 1110 hematology hgb (11.0 - 15.0 g/dl) 10.9 l hct (33.0 - 45.0 %) 31.7 l microbiology:07/23 0618 nasal: mrsa dna surveillance screen - comp free text obj notesfree text obj notes:physical examination:general: in bed, awakee and responsive, not in distressheent: nc/at, decreased vision, neck supple, moist mucous membranescv: rrr, s1/s2, no murmurslungs: symetrical expansion, no wheezing/rales, normal work of breathinggi: obese, soft, nt/nd, bowel sounds presentgu: no flank pain, voidingskin: warm, no colette, no cyanosi, r neck surgical site, c/d/ineuro: no x3, speech is fluent, no motor or sensory deficits notedpsych: calm treatment prophylaxis treatment prophylaxisurine color: amberoxygen: room airulcer prophylaxis: pantoprazole diagnosis, assessment plan diagnosis, assessment planconsultants: critical/intensivistplan discussed with: patient, family, collaborating md, nurse, interdisc care teamcritical care time: minutes: 35 code status/resusc. discussionresuscitation discussion: discussed with: patient, familycode status: full codefree text dxa p:ms. man is a 81-year-old female patient who was admitted to ccu after an elective right carotid endarterectomy due to severe right carotid stenosis on cerebral angiogram. she has a past medical history significant for hypertension,hyperlipidemia, diabetes, neuropathy, previous right knee surgery and cholecystectomy. she was seen and examined at the bedside, she is awake and oriented, follows commands, no headache or focal weakness, speech is fluent. reports mild muscle cramping to left lower extremity. bp 128/60, sr 62. problems:cva right carotid stenosisstatus post right ceahypertensionhyperlipidemiadiabetesdiabetes neuropathyobesity plan:ccu statusas needed pain controlneurovascular checks per unit protocolneck circumferential checksaspirin/plavix per vascularstatinprn hydralazine for sbp >150monitor renal function, uopreplete electrolytes as neededbedside swallowing testreconcile home medshemoglobin and surgical site checks, monitor for bleeding, transfuse for hemoglobin less than 7.glycemic control with iss, accu-cheks. obtain hemoglobin x2oqkkv negative; ua cx + for proteus mirabilis; start zosyndvt prophylaxis: scds. home dose ppipt/ot/speechthank you for allowing us to participate in the care of this patient, will follow along during hospital stay.patient is a full codei spent 35 minutes of critical care reviewing labs, imaging and discussing plansof care with mail delivery supervisor, interdisciplinary team electronically signed by riccardo kendall on 07/23/22 at 1702 addendum 1: 07/24/22 1139 by riccardo kendall problems:urinary tract infection. electronically signed by riccardo kendall on 07/24/22 at 1140 rpt #:[id number] of [id number] for patient [id number] [facility] 2022-07-23 10:57:00 [id number] Cd4cwytKQq+P [id number]:00 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 she denies headache or focal weakness but reports dizziness. historyadditional medical history:hypertensionhyperlipidemiadiabetesalcohol use: denies etoh usedrug use: denies recreational drugssmoking status: smoking status for patients 13 years old or older: never smoker medication/allergy-vaccine hxmedications:home medications: medication dose/rte/freq days qty entered last max daily dose reviewed risperidone (risperdal) 07/20/22 strength: 0.25 mg tab 1441 pregabalin (lyrica) 07/20/22 strength: 25 mg cap 1442 trazodone (desyrel) 50 mg po bedtime 07/20/22 strength: 50 mg tab 1442 trazodone (desyrel) 07/20/22 strength: 50 mg tab 1442 montelukast (singulair) 07/20/22 strength: 4 mg granules 1442 isosorbide 07/20/22 mononitrate 1442 (monoket) strength: 10 mg tab pantoprazole 07/20/22 (protonix) 1443 strength: 20 mg tab. atorvastatin (lipitor) 07/20/22 strength: 10 mg tab 1443 losartan (cozaar) 07/20/22 strength: 25 mg tab 1444 current hospital medications:anti-infective agents sig/mak start time last medication dose route stop time status admin cefazolin sodium 0 .stk-med one 07/23 0717 dc (kefzol or ancef) .route cefazolin sodium 1 gm preop oncall 07/23 0500 dc (kefzol or ancef) iv 07/23 2359 sodium chloride 10 ml (sodium chloride) autonomic drugs sig/mak start time last medication dose route stop time status admin glycopyrrolate 0 .stk-med one 07/23 831 dc (glycopyrrolate) .route neostigmine 0 .stk-med one 07/23 831 dc methylsulfate .route (prostigmin) glycopyrrolate 0 .stk-med one 07/23 0723 dc (glycopyrrolate) .route neostigmine 0 .stk-med one 07/23 0723 dc methylsulfate .route (prostigmin) ephedrine sulfate 0 .stk-med one 07/23 0716 dc (ephedrine sulfate) .route phenylephrine hcl 250 ml .stk-med one 07/23 0648 dc (phenylephrine 30 mg/ iv ns 250 ml) phenylephrine hcl 0 .stk-med one 07/23 644 dc (olga-synephrine i-javier 1000mcg/ns 10ml inj) rocuronium bromide 0 .stk-med one 07/23 644 dc (zemuron) iv blood formation,coagulation sig/mak start time last medication dose route stop time status admin protamine sulfate 0 .stk-med one 07/23 0831 dc (protamine sulfate) iv heparin sodium 0 .stk-med one 07/23 644 dc (heparin sodium) .route heparin sodium 0 .stk-med one 07/23 624 dc (heparin sodium) .route thrombin 0 .stk-med one 07/23 624 dc (recothrom) topical cardiovascular drugs sig/mak start time lastmedication dose route stop time status adminlosartan potassium 25 mg daily 07/24 0900 ac (cozaar) po 08/23 0859atorvastatin calcium 10 mg bedtime 07/23 2100 ac (lipitor) po 08/23 0859isosorbide 10 mg daily 07/23 1200 ac 07/23mononitrate po 08/22 1159 1229 (isosorbidemononitrate)hydralazine hcl 5 mg pacu q10min prn prn 07/23 0900 ac (apresoline) iv 07/23 1900labetalol hcl 5 mg pacu q10min prn prn 07/23 0900 ac (labetalol hcl) iv 07/23 1900esmolol hcl 0 .stk-med one 07/23 0755 dc (brevibloc) ivnitroglycerin/ 250 ml .stk-med one 07/23 0650 dcdextrose iv (vnriwnwkpqzem02,000mcg/d5w 250ml)lidocaine hcl 0 .stk-med one 07/23 644 dc (xylocaine) .routelidocaine hcl 0 .stk-med one 07/23 624 dc (xylocaine iv) ivmetoprolol tartrate 6.25 mg once 07/23 0600 dc 07/23 (lopressor) po 07/23 0800 0600verapamil hcl 16.6 mg .q24h one 07/23 0600 ckd (isoptin) iv 07/24 0559heparin sodium 1,660 unit (porcine) (heparin sodium)sodium bicarbonate 0.7 ml(sodium bicarbonate)nitroglycerin/ 8.3 mgdextrose(nitroglycerin 50mg/d5w 250ml)lactated ringer's 949.5 ml (lactated ringers)metoprolol tartrate 0 .stk-med one 07/23 0553 dc (lopressor) .routelidocaine hcl 2 ml preop oncall 07/20 1415 dc (lidocaine hcl/pf) local 08/19 2359lidocaine hcl 2 ml preop oncall 07/20 1415 dc (lidocaine hcl/pf) local 08/19 2359 central nervous system agents sig/mak start time lastmedication dose route stop time status admintrazodone hcl 50 mg bedtime 07/23 2100 ac (desyrel) po 08/22 205pregabalin 25 mg tid 07/23 1500 ac (lyrica) po 08/22 1459acetaminophen 650 mg q4h prn prn 07/23 1100 ac (tylenol) po 08/22 1059tramadol hcl 25 mg q4h prn prn 07/23 1100 ac 07/23 (ultram) po 07/28 1059 1238fentanyl citrate 0 .stk-med one 07/23 0913 dc (sublimaze) .routefentanyl citrate 100 mcg pacu q10min prn prn 07/23 0900 ac (sublimaze) iv 07/23 1900fentanyl citrate 50 mcg pacu q10min prn prn 07/23 0900 ac 07/23 (sublimaze) iv 07/23 190 0921hydrocodone bitart/ 1 tab pacu once 07/23 09 ckdacetaminophen po 07/23 1900 (norco 5/325)hydromorphone hcl 1 mg pacu q10min prn prn 07/23 0900 ac (dilaudid) iv 07/23 1900hydromorphone hcl 0.5 mg pacu q5min prn prn 07/23 0900 ac (dilaudid) iv 07/23 1900tramadol hcl 50 mg pacu once 07/23 0900 ckd (ultram) po 07/23 1900fentanyl citrate 0 .stk-med one 07/23 0644 dc (sublimaze) .routepropofol 20 ml .stk-med one 07/23 0644 dc(diprivan 200mg/20ml ivinjection)gabapentin 0 .stk-med one 07/23 0553 dc (neurontin) .routeacetaminophen 0 .stk-med one 07/23 0552 dc (tylenol extra .routestrength)acetaminophen 1,000 mg preop oncall 07/20 1415 dc 07/23 (tylenol extra po 08/19 2359 0601strength)gabapentin 200 mg preop oncall 07/20 1415 dc 07/23 (neurontin) po 08/19 235 0600 electrolytic, caloric, and rain sig/mak start time last medication dose route stop time status admin lactated ringer's 1,000 ml .q24h 07/23 0900 ac (lactated ringers) iv 07/23 1900 sodium chloride 500 ml .stk-med one 07/23 0645 dc (sodium chloride iv 0.9%) lactated ringer's 1,000 ml preop oncall 07/20 1415 dc (lactated ringers) iv 08/19 2359 sodium chloride 500 ml preop oncall 07/20 1415 dc (sodium chloride iv 08/19 2359 0.9%) sodium chloride 500 ml preop oncall 07/20 1415 dc (sodium chloride iv 08/19 235 0.9%) sodium chloride 1,000 ml preop oncall 07/20 1415 dc (sodium chloride iv 08/19 2359 0.9%) sodium chloride 5 ml asdir prn 07/20 1415 dc (sodium chloride) iv 08/19 1414 sodium chloride 10 ml asdir prn 07/20 1415 dc (sodium chloride) iv 08/19 1414 sodium chloride 250 ml asdir prn 07/20 1415 dc (sodium chloride iv 08/19 1414 0.9%) eye, ear, nose and throat (een sig/mak start time last medication dose route stop time status admin dexamethasone sodium 0 .stk-med one 07/23 0644 dc phosphate .route (decadron) gastrointestinal drugs sig/mak start time last medication dose route stop time status admin docusate sodium 100 mg bid 07/23 2100 ac (colace) po 08/22 2059 pantoprazole 40 mg daily@0600 07/23 1200 ac 07/23 (protonix) po 08/22 1159 1229 bisacodyl 10 mg daily prn prn 07/23 1045 ac (dulcolax) rectal 08/22 1044 magnesium hydroxide 30 ml q6h prn prn 07/23 1045 ac (milk of magnesia) po 08/22 1044 ondansetron hcl 4 mg q6h prn prn 07/23 1045 ac (zofran) iv 08/22 1044 ondansetron hcl 4 mg pacu once prn 07/23 0900 ac (zofran) iv 07/23 1900 ondansetron hcl 0 .stk-med one 07/23 0644 dc (zofran) .route hormones and synthetic substit sig/mak start time last medication dose route stop time status admin insulin human lispro 0 pacu once prn 07/23 0900 ac (humalog) subq 07/23 1900 local anesthetics (parenteral) sig/mak start time last medication dose route stop time status admin ropivacaine 150 mg asdir prn 07/23 0900 ac (naropin 0.5% 150 mg/ local 07/23 1900 30ml) respiratory tract agents sig/mak start time last medication dose route stop time status admin montelukast sodium 4 mg daily 07/24 0900 ckd (montelukast sodium) po 08/23 0859 allergies:coded allergies:no known allergies (07/20/22) review of systemsconstitutional:denies: chills, fever, malaise. allergy/immun:denies: allergic reaction. respiratory:denies: sob. cardiovascular:denies: palpitations. heme:denies: bleeding. neuro:denies: dizziness, headache. physical examvs/i ovital signs: date time temp pulse resp b/p b/p pulse o2 o2 flow fio2 mean ox delivery rate 07/23 920 62 18 128/60 93 07/23 0915 60 18 128/60 98 07/23 0910 62 18 135/58 98 07/23 0905 64 20 140/62 98 07/23 0900 64 18 149/61 100 07/23 0855 98.0 64 18 152/75 100 room air 07/23 0555 97.8 65 18 175/73 100 room air patient weight: weight (lb): 163weight (oz): 12.86weight (kg): 74.300 general appearance: alert, oriented, pleasant, mental status normal, no respiratory distresshead/eyes: atraumatic, normocephalicneck: non-tender, no masses or swellingcardiovascular: regular rate rhythm, normal heart soundsrespiratory: clear to auscultation, aerating well, symmetric expansionabdomen/gi: soft, non-tendergenitourinary: normal cervical examextremities: moves all, no edema-all extremitiesneuro/artillery specialist: alert, oriented x 3, normal speech, no motor deficitspsychiatry: normal affect resultsfindings/data:laboratory tests: 07/23 07/23 07/23 07/23 1110 1108 0857 0748 chemistry sodium (134 - 147 meq/l) 139 potassium (3.4 - 5.0 meq/l) 3.8 chloride (100 - 108 meq/l) 106 carbon dioxide (21 - 33 meq/l) 25 anion gap (0 - 20) 12 bun (7 - 18 mg/dl) 18 creatinine (0.6 - 1.3 mg/dl) 1.1 glomerular filtr rate (70 - 80) 47.6 l glucose (70 - 110 mg/dl) 169 h poc glucose (70 - 110 mg/dl) 149 h 145 h calcium (8.0 - 10.5 mg/dl) 8.7 coagulation activated coag time (74 - 137 sec) 312 h hematology hgb (11.0 - 15.0 g/dl) 10.9 l hct (33.0 - 45.0 %) 31.7 l diagnosis, assessment planorders: procedure date/time status cbc w/auto diff 07/24 0500 active basic metabolic panel 07/24 0500 active post op vital signs 07/23 1048 active neurologic check: monitor 07/23 1048 active mrsa protocol 07/23 1048 active diet instructions for nursing 07/23 1048 active arterial line care 07/23 1048 active hgb hct 07/23 1048 active basic metabolic panel 07/23 1048 active covid-19 risk assessment 07/23 1048 active critical care physician cons. 07/23 1048 active level of care 07/23 1048 active admit patient (cpoe) 07/23 1048 active consultants: critical/mail delivery supervisor free text dxa p notesfree text dxa p notes:plan admit patient to ccu neuro checks monitor right neck incision, yumi output blood pressure control resume home meds monitor renal function continue close monitoring in icu rusty angeles 07/24/22 0918:attestations physician attestationagree w/findings plan:i have seen and examined ms. man. i agree with the findings and plan as documented by virginia dunbar. briefly, 81-year-old female with severe right internal carotid artery stenosis. patient is being admitted to the hospital for right carotid endarterectomy. i had a long discussion with the patient, explained to her the procedure, risk involved, benefit, alternative, and complications. electronically signed by julian gama np on 07/23/22 at 1605electronically signed by rusty angeles md on 07/24/22 at 0949 rpt #:[id number] of reportHPHistory and physical [id number]:57:00G.[id number] vailable for patient [id number]:06:08 [facility] 2022-07-23 08:40:00 [id number] [id number] [id number]:40:00 [facility] ([facility])dt operative notereport#:[id number] report status: signeddate:07/23/22 time: 0840 patient: nita man unit #: [id number]#: [id number] room/bed:: 39 age: 81 sex: f attend: rusty angeles [facility] dt: 07/23/22 author: rusty angeles md * all edits or amendments must be made on the electronic/computer document * operative report operative notenote:preoperative diagnosis: asymptomatic severe right internal carotid artery stenosis postoperative diagnosis: asymptomatic severe right internal carotid artery stenosis operation: right carotid endarterectomy surgeon: rusty angeles md executive chef assistant: destini forbes anesthesiologist: sonia sosa md anesthesia: general endotracheal anesthesia estimated blood loss: 20 cc indication: ms man is a very pleasant 81-year-old female with severe rightinternal carotid artery stenosis. after due preop counseling she was brought tothe operating room today for right carotid endarterectomy. findings: 1. calcified plaque at the bifurcation of the right common carotid artery leading to a pinhole opening in the right internal carotid artery.2. good endpoint in the right internal carotid artery following endarterectomy.3. the hypoglossal nerve was identified and protected throughout the procedure.4. the tongue was in the midline and patient was moving all extremities at the end of the procedure. procedure: ms man was identified in the preop holding area and brought to the operating room and placed supine on the operating table. after induction ofgeneral endotracheal anesthesia at the right side of the neck was prepped and draped in standard surgical fashion. a 4 cm incision was made along the anterior border of the middle third right sternocleidomastoid. platysma was divided with bovie cautery. the deep cervical fascia was opened. the facial vein was identified dissected ligated and divided. hypoglossal nerve was identified and protected throughout the procedure. the right common carotid artery, the right internal carotid artery, and right external carotid artery were identified, dissected and isolated. patient was heparinized with 7000 units of heparin. after waiting for 3 minutes the bifurcation of the right common carotid artery was isolated with 3 profunda clamp. arteriotomy was performed on the right common carotid artery and extended onto the right internal carotid artery using sanabria scissors. a funez shunt was then placed inthe right common and internal carotid artery. next using a penfield dissector endarterectomy of the right common and internal carotid artery was performed. endarterectomy of the right external carotid artery was performed using eversiontechnique. there was a good endpoint in the right internal carotid artery. next patch repair of the right common and internal carotid artery was performed using bovine pericardial patch and running 6-0 prolene suture. prior to tying the patch down funez shunt was removed and careful dilation was performed. next 7 yumi drain was placed in the wound. hemostasis was confirmed and the neck was closed in layers using #2 vicryl for the platysma and 4-0 vicryl for the skin. patient was extubated in the operating room and moved to pacu in stable condition. electronically signed by rusty angeles md on 07/23/22 at 0843 rpt #:[id number] of reportOPOperative [id number]:40:00G.[id number] ble for patient [id number]:43:50 [facility] 2022-07-20 13:55:00 [id number] [id number] [id number] [place] [id number] patient name: nita man admit date: account no: [id number] room no: age: 81 report type: eelectrocardiogram report sex: f admitting physician: attending physician:rusty angeles md order:[id number] reason : pre op test date/time stamp:satjul 20 2022 13:55:01blood pressure : / mmhgvent. rate : 066 bpm atrial rate : 066 bpm p-r int : 160 ms qrs dur : 124 ms qt int : 454 ms p-r-t axes : 079 -26 040 degrees qtc int : 475 ms normal sinus rhythmright bundle branch blockabnormal ecgno previous ecgs availableconfirmed by dao sam md ([id number]) on 07/20/2022 2:31:38 pm referred by: kayden angeles confirmed by:dao sam md electronically signed by dao sam md on 07/20/22 at 1431 patient name: nita man .[id number] [facility] [id number]:31:59 [facility]
--- NOTE | 2023-12-25 13:29 | RAD REPORT ---
EXAM DESCRIPTION: RAD - Knee Left 3 View - 12/25/2023 1:09 pm CLINICAL HISTORY: fall, knee pain COMPARISON: Shoulder Left 2 View dated 12/25/2023 FINDINGS: Diffuse osteopenia is noted. Tricompartmental osteoarthritic changes are present. No acute fracture or dislocation seen. Popliteal atherosclerosis. No joint effusion.
--- NOTE | 2023-12-25 13:30 | RAD REPORT ---
EXAM DESCRIPTION: RAD - Shoulder Left 2 View - 12/25/2023 1:09 pm CLINICAL HISTORY: Pain;Smash injury COMPARISON: No comparisons FINDINGS: Diffuse osteopenia is seen. AC joint and glenohumeral joint arthritic changes are present. No acute fracture or dislocation seen.
--- NOTE | 2023-12-25 13:30 | RAD REPORT ---
EXAM DESCRIPTION: RAD - Elbow Left 3 View - 12/25/2023 1:09 pm CLINICAL HISTORY: Pain;Smash injury COMPARISON: No comparisons FINDINGS: No acute fracture or dislocation seen.
--- NOTE | 2023-12-25 13:31 | RAD REPORT ---
EXAM DESCRIPTION: RAD - Wrist Left 3 View - 12/25/2023 1:09 pm CLINICAL HISTORY: Pain;Smash injury Pain COMPARISON: No comparisons FINDINGS: Diffuse osteopenia is noted. Degenerative changes are present radiocarpal joint. Moderate soft tissue swelling is seen along the dorsum of the wrist. No acute fracture seen.
--- NOTE | 2023-12-25 14:03 | EDPHYS ---
Physician Documentation [facility] Name: Madison Cerrato Age: 83 yrs Sex: Female : 1940 Arrival Date: 12/25/2023 Time: 11:22 Bed 12 Private MD: ED Physician Tyler Bailey HPI: 12/25 13:48 This 83 yrs old Female presents to ER via Ambulatory with complaints of Fall antonio Injury. 13:48 Details of fall: The patient fell from an upright position, while walking. Onset: The antoino symptoms/episode began/occurred this morning. Associated injuries: The patient sustained left hand, left arm and left leg, decreased range of motion. Severity of symptoms: At their worst the symptoms were mild, in the emergency department the symptoms are unchanged. The patient has not experienced similar symptoms in the past. Historical: - Allergies: 11:37 Codeine; ap3 - Home Meds: 13:51 amlodipine 10 mg tab 1 tab once daily [Active]; atorvastatin 20 mg Oral tab 1 tab once tl4 daily [Active]; escitalopram oxalate 20 mg Oral tab [Active]; isosorbide mononitrate 60 mg Oral Tb24 [Active]; losartan 25 mg Oral tab 1 tab once daily [Active]; omeprazole 20 mg Oral cpDR 1 cap 2 times per day [Active]; pregabalin 150 mg Oral cap [Active]; trazodone 50 mg Oral tab [Active]; - PMHx: 11:37 Alzheimer's disease; Congestive heart failure; CVA; Dementia; diabetes mellitus; ap3 Hypercholesterolemia; Hypertensive disorder; kidney disease; - PSHx: 13:51 Cholecystectomy; knee; tl4 - Immunization history:: Client reports receiving the 2nd dose of the Covid vaccine, Flu vaccine is up to date. - Social history:: Smoking status: Patient denies any tobacco usage or history of. ROS: 13:51 Constitutional: Negative for fever, chills, and weight loss, Eyes: Negative for injury, antonio pain, redness, and discharge, ENT: Negative for injury, pain, and discharge, Neck: Negative for injury, pain, and swelling, Cardiovascular: Negative for chest pain, palpitations, and edema, Respiratory: Negative for shortness of breath, cough, wheezing, and pleuritic chest pain, Abdomen/GI: Negative for abdominal pain, nausea, vomiting, diarrhea, and constipation, Back: Negative for injury and pain, : Negative for injury, bleeding, discharge, and swelling, Skin: Negative for injury, rash, and discoloration, Neuro: Negative for headache, weakness, numbness, tingling, and seizure, Psych: Negative for depression, anxiety, suicide ideation, homicidal ideation, and hallucinations, Allergy/Immunology: Negative for hives, rash, and allergies, Endocrine: Negative for neck swelling, polydipsia, polyuria, polyphagia, and marked weight changes, 13:51 MS/extremity: Positive for decreased range of motion, pain, of the left arm and left leg, Exam: 13:54 Constitutional: This is a well developed, well nourished patient who is awake, alert, antoino and in no acute distress. Head/Face: Normocephalic, atraumatic. Eyes: Pupils equal round and reactive to light, extra-ocular motions intact. Lids and lashes normal. Conjunctiva and sclera are non-icteric and not injected. Cornea within normal limits. Periorbital areas with no swelling, redness, or edema. ENT: Nares patent. No nasal discharge, no septal abnormalities noted. Tympanic membranes are normal and external auditory canals are clear. Oropharynx with no redness, swelling, or masses, exudates, or evidence of obstruction, uvula midline. Mucous membranes moist. Neck: Trachea midline, no thyromegaly or masses palpated, and no cervical lymphadenopathy. Supple, full range of motion without nuchal rigidity, or vertebral point tenderness. No Meningismus. Chest/axilla: Normal chest wall appearance and motion. Nontender with no deformity. No lesions are appreciated. Cardiovascular: Regular rate and rhythm with a normal S1 and S2. No gallops, murmurs, or rubs. Normal PMI, no JVD. No pulse deficits. Respiratory: Lungs have equal breath sounds bilaterally, clear to auscultation and percussion. No rales, rhonchi or wheezes noted. No increased work of breathing, no retractions or nasal flaring. Abdomen/GI: Soft, non-tender, with normal bowel sounds. No distension or tympany. No guarding or rebound. No evidence of tenderness throughout. Back: No spinal tenderness. No costovertebral tenderness. Full range of motion. Female : Normal external genitalia. Skin: Warm, dry with normal turgor. Normal color with no rashes, no lesions, and no evidence of cellulitis. Neuro: Awake and alert, GCS 15, oriented to person, place, time, and situation. Cranial nerves II-XII grossly intact. Motor strength 5/5 in all extremities. Sensory grossly intact. Cerebellar exam normal. Normal gait. Psych: Awake, alert, with orientation to person, place and time. Behavior, mood, and affect are within normal limits. 13:54 Musculoskeletal/extremity: Extremities: grossly normal except: noted in the left arm and left leg: decreased ROM, pain, ROM: limited active range of motion due to pain, limited passive range of motion due to pain, in the left arm and left leg, Circulation is intact in all extremities. Sensation intact. Compartment Syndrome exam of affected extremity: is normal. Weight bearing: able to fully bear weight, Vital Signs: 11:38 BP 162 / 58; Pulse 62; Resp 17; Temp 97.7; Pulse Ox 100% ; Weight 78.02 kg; Pain 10/10; ap3 13:42 BP 183 / 68; Pulse 66; Resp 18; Pulse Ox 99% on R/A; Pain 6/10; tl4 14:16 BP 179 / 69; Pulse 65; Resp 18; Pulse Ox 98% on R/A; tl4 11:38 Pain Scale: Adult ap3 13:42 Pain Scale: Adult tl4 Holly Coma Score: 11:39 Eye Response: spontaneous(4). Motor Response: obeys commands(6). Verbal Response: ap3 oriented(5). Total: 15. 13:42 Eye Response: spontaneous(4). Motor Response: obeys commands(6). Verbal Response: tl4 oriented(5). Total: 15. 14:16 Eye Response: spontaneous(4). Motor Response: obeys commands(6). Verbal Response: tl4 oriented(5). Total: 15. Trauma Score (Adult): 11:38 Eye Response: spontaneous(1); Verbal Response: oriented(1); Motor Response: obeys ap3 commands(2); Systolic BP: > 89 mm Hg(4); Respiratory Rate: 10 to 29 per min(4); Terrell Score: 15; Trauma Score: 12 MDM: 11:27 Patient medically screened. antonio 13:55 Differential diagnosis: tendonitis, closed fracture. Data reviewed: vital signs, nurses antonio notes, radiologic studies, plain films. Consideration of Admission/Observation Escalation of care including admission/observation considered. I considered the following discharge prescriptions or medication management in the emergency department Medications were administered in the Emergency Department. See MAR. Independent interpretation of the following test(s) in the Emergency Department X-Ray: My interpretation is no fx, old, arthritic changes. Test considered but Not performed: Labs: no labs. Care significantly affected by the following chronic conditions: Diabetes, Hypertension, Congestive Heart Failure, Obesity, dementia, cva. 12/25 12:34 Order name: Knee Left 3 View XRAY; Complete Time: 13:39 ll1 12/25 12:34 Order name: Shoulder Left (2 View) XRAY; Complete Time: 13:39 ll1 12/25 12:34 Order name: Elbow Left 3 View XRAY; Complete Time: 13:39 ll1 12/25 12:34 Order name: Wrist Left (3 View) XRAY; Complete Time: 13:39 ll1 12/25 13:48 Order name: Say Wrap; Complete Time: 13:53 antonio Administered Medications: 13:59 Drug: Ibuprofen PO 400 mg PO once Route: PO; tl4 14:10 Follow up: Response: No adverse reaction tl4 13:59 Drug: HYDROcodone-acetaminophen PO 5 mg-325 mg 1 tabs PO once Route: PO; tl4 14:09 Follow up: Response: No adverse reaction tl4 Disposition Summary: 12/25/23 14:03 Discharge Ordered Notes: Location: Home antonio Problem: new antonio Symptoms: have improved antonio Condition: Stable antonio Diagnosis - Fall on same level, unspecified antonio - Contusion of left elbow antonio - Other sprain of left elbow antonio - Contusion of left shoulder antonio - Other sprain of left shoulder joint antonio - Contusion of left knee antonio - Other specified arthritis, left knee antonio Followup: antonio - With: Private Physician - When: 2 - 3 days - Reason: Recheck today's complaints, Continuance of care, Re-evaluation by your physician Followup: antonio - With: Roland Pelaez MD - When: 2 - 3 days - Reason: Recheck today's complaints, Re-evaluation by your physician Discharge Instructions: - Discharge Summary Sheet antonio - Arthritis antonio - Fall Prevention in the Home, Adult antonio - Shoulder Pain antonio - Shoulder Sprain antonio - Elbow Sprain [facility] Forms: - Medication Reconciliation Form antonio - Thank You Letter antonio - Antibiotic Education antonio - Prescription Opioid Use antonio - Patient Portal Instructions [facility] - Leadership Thank You Letter antonio Prescriptions: - Tramadol 50 mg Oral tablet - take 1 tablet ORAL route every 8 hours as needed; 20 tablet; Refills: 0, [facility] Product Selection Permitted - Motrin IB 200 mg Oral tablet - take 1 tablet ORAL route every 6 hours As needed as needed with food; 26 [facility] tablet; Refills: 0, Product Selection Permitted Signatures: Dispatcher [employer] Tyler Baldwin MD MD cha Prokisch, Amanda RN RN ap3 Manjinder Keith 4
--- NOTE | 2023-12-25 14:03 | ER ---
Nurse's Notes [facility] Name: Madison Cerrato Age: 83 yrs Sex: Female : 1940 Arrival Date: 12/25/2023 Time: 11:22 Bed 12 Private MD: Diagnosis: Fall on same level, unspecified;Contusion of left elbow;Other sprain of left elbow;Contusion of left shoulder;Other sprain of left shoulder joint;Contusion of left knee;Other specified arthritis, left knee Presentation: 12/25 11:35 Chief complaint: Patient states: she fell at [facility] at approx 1015 this morning. ap3 patient complains of left arm, left knee, and left shoulder pain since the fall. patient denies hitting her head, and denies being on blood thinners. Care prior to arrival: None. Mechanism of Injury: Fall. Trauma event details: Injury occurred in the [facility], Injury occurred: in a public building. Injury occurred: December 25, 2023 Injury occurred at: 10:15. 11:35 Acuity: JOHN 4 ap3 11:35 Method Of Arrival: Ambulatory ap3 11:38 Coronavirus screen: At this time, the client does not indicate any symptoms associated ap3 with coronavirus-19. Ebola Screen: No symptoms or risks identified at this time. Initial Sepsis Screen: Does the patient meet any 2 criteria? No. Patient's initial sepsis screen is negative. Does the patient have a suspected source of infection? No. Patient's initial sepsis screen is negative. Risk Assessment: Do you want to hurt yourself or someone else? Patient reports no desire to harm self or others. Onset of symptoms was December 25, 2023 at 10:15. Triage Assessment: 11:38 General: Appears in no apparent distress. Behavior is calm, cooperative, appropriate ap3 for age. Pain: Complains of pain in left arm and left leg. Neuro: Level of Consciousness is awake, alert, obeys commands, Oriented to person, place, time, situation. Cardiovascular: Patient's skin is warm and dry. Respiratory: Airway is patent Respiratory effort is even, unlabored, Respiratory pattern is regular, symmetrical. Historical: - Allergies: 11:37 Codeine; ap3 - Home Meds: 13:51 amlodipine 10 mg tab 1 tab once daily [Active]; atorvastatin 20 mg Oral tab 1 tab once tl4 daily [Active]; escitalopram oxalate 20 mg Oral tab [Active]; isosorbide mononitrate 60 mg Oral Tb24 [Active]; losartan 25 mg Oral tab 1 tab once daily [Active]; omeprazole 20 mg Oral cpDR 1 cap 2 times per day [Active]; pregabalin 150 mg Oral cap [Active]; trazodone 50 mg Oral tab [Active]; - PMHx: 11:37 Alzheimer's disease; Congestive heart failure; CVA; Dementia; diabetes mellitus; ap3 Hypercholesterolemia; Hypertensive disorder; kidney disease; - PSHx: 13:51 Cholecystectomy; knee; tl4 - Immunization history:: Client reports receiving the 2nd dose of the Covid vaccine, Flu vaccine is up to date. - Social history:: Smoking status: Patient denies any tobacco usage or history of. Screenin:39 Abuse screen: Denies threats or abuse. Nutritional screening: No deficits noted. ap3 Tuberculosis screening: No symptoms or risk factors identified. 13:52 [facility] ED Fall Risk Assessment (Adult) History of falling in the last 3 months, tl4 including since admission Yes- single mechanical fall (1 pt) Confusion or Disorientation No (0 pts) Intoxicated or Sedated No (0 pts) Impaired Gait No (0 pts) Mobility Assist Device Used No (0 pt) Altered Elimination No (0 pt) Score/Fall Risk Level 0 - 2 = Low Risk Oriented to surroundings, Maintained a safe environment, Educated pt \T\ family on fall prevention, incl call for assistance when getting out of bed, Assessed \T\ reinforced patient's understanding of fall precautions, Provided non-skid footwear, Hourly rounding (assess needs \T\ fall precautionary measures) done, Used ambulatory aids as needed (educated on \T\ assisted with), Used gait belt as appropriate. Primary Survey: 11:38 NO uncontrolled hemorrhage observed. A: The client is awake and alert. The airway is ap3 patent. Breathing/Chest: Spontaneous respiratory effort, equal unlabored respirations, breath sounds clear bilaterally, regular pattern, symmetrical chest rise and fall. Circulation: No external hemorrhage present. Regular and strong central pulse, skin warm/dry/normal color. Disability Client is alert. Exposure/Environment: A warming method has been applied: A warm blanket has been provided to the patient. Assessment: 12:11 Reassessment: No changes from previously documented assessment. Patient and/or family ap3 updated on plan of care and expected duration. Pain level reassessed. 13:50 Reassessment: No changes from previously documented assessment. Patient and/or family tl4 updated on plan of care and expected duration. Pain level reassessed. Patient is alert, oriented x 3, equal unlabored respirations, skin warm/dry/pink. Vital Signs: 11:38 BP 162 / 58; Pulse 62; Resp 17; Temp 97.7; Pulse Ox 100% ; Weight 78.02 kg; Pain 10/10; ap3 13:42 BP 183 / 68; Pulse 66; Resp 18; Pulse Ox 99% on R/A; Pain 6/10; tl4 14:16 BP 179 / 69; Pulse 65; Resp 18; Pulse Ox 98% on R/A; tl4 11:38 Pain Scale: Adult ap3 13:42 Pain Scale: Adult tl4 [place] Coma Score: 11:39 Eye Response: spontaneous(4). Motor Response: obeys commands(6). Verbal Response: ap3 oriented(5). Total: 15. 13:42 Eye Response: spontaneous(4). Motor Response: obeys commands(6). Verbal Response: tl4 oriented(5). Total: 15. 14:16 Eye Response: spontaneous(4). Motor Response: obeys commands(6). Verbal Response: tl4 oriented(5). Total: 15. Trauma Score (Adult): 11:38 Eye Response: spontaneous(1); Verbal Response: oriented(1); Motor Response: obeys ap3 commands(2); Systolic BP: > 89 mm Hg(4); Respiratory Rate: 10 to 29 per min(4); [place] Score: 15; Trauma Score: 12 ED Course: 11:23 Patient arrived in ED. gm2 11:27 Tyler Bailey MD is Attending Physician. antonio 11:37 Triage completed. ap3 11:38 Arm band placed on right wrist. ap3 11:39 Patient maintains SpO2 saturation greater than 95% on room air. ap3 12:09 Manjinder Keith is Primary Nurse. tl4 12:11 Patient placed in an exam room, on a stretcher. ap3 13:10 Knee Left 3 View XRAY In Process Unspecified. EDMS 13:10 Shoulder Left (2 View) XRAY In Process Unspecified. EDMS 13:11 Elbow Left 3 View XRAY In Process Unspecified. EDMS 13:11 Wrist Left (3 View) XRAY In Process Unspecified. EDMS 13:52 Patient has correct armband on for positive identification. Placed in gown. Bed in low tl4 position. Call light in reach. Side rails up X2. Adult w/ patient. Provided Education on: ed process. Client placed on continuous cardiac and pulse oximetry monitoring. NIBP monitoring applied. Door closed. Noise minimized. Moved to private room. Warm blanket given. 13:53 No provider procedures requiring assistance completed. Patient did not have IV access tl4 during this emergency room visit. 13:54 Say wrap to left knee Instructions for use given and demonstrated. Family acknowledged tl4 understanding. 14:03 Roland Pelaez MD is Referral Physician. antonio Administered Medications: 13:59 Drug: Ibuprofen PO 400 mg PO once Route: PO; tl4 14:10 Follow up: Response: No adverse reaction tl4 13:59 Drug: HYDROcodone-acetaminophen PO 5 mg-325 mg 1 tabs PO once Route: PO; tl4 14:09 Follow up: Response: No adverse reaction tl4 Medication: 12:46 VIS not applicable for this client. tl4 Outcome: 14:03 Discharge ordered by . [facility] 14:16 Discharged to home via wheelchair, with family, tl4 14:16 Condition: stable 14:16 Discharge instructions given to patient, family, Instructed on discharge instructions, follow up and referral plans. medication usage, Demonstrated understanding of instructions, follow-up care, medications, Prescriptions given X 2, 14:17 Patient left the ED. tl4 Signatures: Dispatcher [employer] Tyler Baldwin MD MD cha Prokisch, Amanda RN RN Nilda Alejandro Toni tl4
[2023-12-25 15:48] VITALS: TEMP 97.7
[2023-12-25 16:02] VITALS: BP 179/69; O2SAT 98
== END ==
LOC: ER 11:22
DX: S53.492A Other sprain of left elbow, initial encounter (principal); S43.492A Other sprain of left shoulder joint, initial encounter; S50.02XA Contusion of left elbow, initial encounter; S80.02XA Contusion of left knee, initial encounter; S40.012A Contusion of left shoulder, initial encounter; M13.862 Other specified arthritis, left knee; W18.30XA Fall on same level, unspecified, initial encounter; Z88.5 Allergy status to narcotic agent
CPT/HCPCS: 99284

== ENCOUNTER 2024-11-01 14:14 | Emergency (ER) | payer OTHER ==
--- OUTSIDE RECORDS SUMMARY | 2024-11-01 14:20 | XMS REPORT | Continuity of Care Document ---
Author Name Unknown Address [address] [facility] [address] [place] [address] [facility] Address [address] [facility] [address] [place] [address] Care Team Providers Care Patient Service Technician Pst Name Role Phone Edenilson Orr MD Primary Care Physician + [phone] Selbst Zane REED Attending Clinician + [phone] ZANE MARI Attending Clinician Unavail able Ronald Ochoa Attending Clinician Unavail able GC_GCBZW_Jordan_S Attending Clinician Unavaila Vero Toledo Attending Clinician Unavaila Rusty Lau Attending Clinician TRACY Spencer Attending Clinician Unavailable PHILIP BALTAZAR Attending Clinician Unavailable SHAGGY VILLALPANDO Attending Clinician Unavail able SHAGGY VILLALPANDO Attending Clinician Unavail able Shaggy Villalpando MD Attending Clinician [phone] Maulik Sherman NP Attending Clinician [phone] Doctor Unassigned, [place] Attending Clinician U BISI Cordero Attending Clinician Unavailable MAULIK SHERMAN Attending Clinician Unavailab Bisi Pascual MD Attending Clinician [phone] Ravi THEODORE, Tracy Attending Clinician [phone] JONAH OTERO Attending Clinician Unavailable Shanna THEODORE, Jonah Attending Clinician [phone] WHITEHEAD, ANA Attending Clinician Unavailable Whitehead EGG TESTER, Ana Attending Clinician [phone] Pob, [facility] Main Attending Clinician UnavailPAM Ramirez Attending Clinician Unavailable Pam Kraus Attending Clinician [phone] Do Arboleda MD Attending Clinician [phone] Gramm Berna MENDOZA Attending Clinician [phone] BERNA DONG Attending Clinician Unavailable Cresencio Bush MD Attending Clinician [phone] CRESENCIO BUSH Attending Clinician Unavailable Ronald Ochoa Admitting Clinician Unavail able GC_GCBZW_Faustinaa_S Admitting Clinician UnavailVero Johns Admitting Clinician UnavailRusty Arroyo Admitting Clinician JONAH Rodarte Admitting Clinician Unavailable Payers Payer Name Policy Type Policy Number Effective Date Expirati on Date Source [employer] MEDICARE OON Medicare [id number] 2022 00:00:00 [employer] (MEDICARE REPLACEMENT/ADVANT AGE - PPO) [id number] [employer] MEDICARE [id number] 2021 00:00:00 Problems Condition Name Condition Details Condition Category Status Onset Date Resolution Date Last Treatment Date Treating Clinician Comments Source Cystocele Cystocele Problem Active 06-11 00:00: 00 [facility] Female stress incontinen ce Female Stress Incontinen ce Problem Active 06-11 00:00: 00 [facility] Atrophic vaginitis Atrophic Vaginitis Problem Active 06-11 00:00: 00 [facility] Dementia Dementia Problem Active 06-11 00:00: 00 [facility] 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 Problem Active 06-11 00:00: 00 [facility] Genuine stress incontinen ce Genuine Stress Incontinen ce Problem Active 2023-0 4-11 00:00: 00 [facility] Lateral cystocele Lateral Cystocele Problem Active 0 1-18 00:00: 00 [facility] Personal history of primary malignant neoplasm of breast Personal History of Primary Malignant Neoplasm of Breast Problem Active 1-18 00:00: 00 [facility] History of urinary tract infection History of Urinary Tract Infection Problem Active 0 1-18 00:00: 00 [facility] Overactive urinary bladder Overactive Urinary Bladder Problem Active 1-18 00:00: 00 [facility] Urge incontinen ce of urine Urge Incontinen ce of Urine Problem Active 2021-12 2-16 00:00: 00 [facility] Mixed urinary incontinen ce Mixed Urinary Incontinen ce Problem Active 2021-12 2-16 00:00: 00 [facility] Forgetfuln ess Forgetfuln ess Disease Active 2020-12 2- 00:00: 00 [facility] Hypertensi ve urgency Hypertensi ve urgency Disease Active 2020-12 1-19 00:00: 00 [facility] Contusion of left great toe with damage to nail, initial encounter Contusion of left great toe with damage to nail, initial encounter Disease Active 8-20 00:00: 00 [facility] Arthritis, multiple joint involvemen t Arthritis, multiple joint involvemen t Disease Active 8-20 00:00: 00 [facility] Non compliance with medical treatment Non compliance with medical treatment Disease Active 8-20 00:00: 00 [facility] Diabetic eye exam Diabetic eye exam Disease Active 8-18 00:00: 00 [facility] Senile osteoporos is Senile osteoporos is Disease Active 8-18 00:00: 00 [facility] Need for 23-polyval ent pneumococc al polysaccha ride vaccine Need for 23-polyval ent pneumococc al polysaccha ride vaccine Disease Active 8-18 00:00: 00 [facility] Recurrent UTI Recurrent UTI Disease Active 8-13 00:00: 00 [facility] Cystitis Cystitis Disease Active 8-13 00:00: 00 [facility] Dysuria Dysuria Disease Active 0 8- 00:00: 00 [facility] Lower abdominal pain Lower abdominal pain Disease Active 0 8 00:00: 00 [facility] Alzheimer' s disease of other onset without behavioral disturbanc e Alzheimer' s disease of other onset without behavioral disturbanc e Disease Active 0 8 00:00: 00 [facility] Chronic idiopathic thrombocyt openia Chronic idiopathic thrombocyt openia Disease Active 0 8 00:00: 00 [facility] Pyelonephr itis Pyelonephr itis Disease Active 0 8 00:00: 00 [facility] Gastroesop hageal reflux disease without esophagiti s Gastroesop hageal reflux disease without esophagiti s Disease Active 0 8 00:00: 00 [facility] Primary insomnia Primary insomnia Disease Active 8 00:00: 00 [facility] Hospital discharge follow-up Hospital discharge follow-up Disease Active 8 00:00: 00 [facility] Depression , major, recurrent, moderate Depression , major, recurrent, moderate Disease Active 0 8 00:00: 00 [facility] Anxiety, generalize d Anxiety, generalize d Disease Active 0 8 00:00: 00 [facility] Chronic anemia Chronic anemia Disease Active 0 8 00:00: 00 [facility] Mixed hearing loss, bilateral Mixed hearing loss, bilateral Disease Active 0 8 00:00: 00 [facility] Dyslipidem ia Dyslipidem ia Disease Active 0 8 00:00: 00 [facility] Essential hypertensi on Essential hypertensi on Disease Active 0 8 00:00: 00 [facility] Chronic midline low back pain without sciatica Chronic midline low back pain without sciatica Disease Active 0 8- 00:00: 00 [facility] Urothelial lesion Urothelial lesion Disease Active 8 00:00: 00 [facility] Diverticul osis Diverticul osis Disease Active 07-14 00:00: 00 [facility] Renal scarring Renal scarring Disease Active 07-14 00:00: 00 [facility] Diabetic polyneurop athy associated with type 2 diabetes mellitus Diabetic polyneurop athy associated with type 2 diabetes mellitus Disease Active 07-14 00:00: 00 [facility] Atheroscle rosis of aorta Atheroscle rosis of aorta Disease Active 07-14 00:00: 00 [facility] 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, without long-term current use of 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, without long-term current use of insulin Disease Active 07-14 00:00: 00 [facility] RLS (restless legs syndrome) RLS (restless legs syndrome) Disease Active 07-14 00:00: 00 [facility] Abnormal liver enzymes Abnormal liver enzymes Disease Active 07-14 00:00: 00 [facility] CKD stage G3a/A2, GFR 45-59 and albumin creatinine ratio 30-299 mg/g CKD stage G3a/A2, GFR 45-59 and albumin creatinine ratio 30-299 mg/g Disease Active 07-14 00:00: 00 [facility] Allergies, Adverse Reactions, Alerts Allergy Name Allergy Type Status Severity Reaction(s) Onset Date Inactive Date Treating Clinician Comments Source sulfamet hoxazole DA Active SV DIARRHEA 05-23 00:00: 00 [facility] trimetho prim DA Active SV DIARRHEA 05-23 00:00: 00 [facility] No Known Allergie s DA Active U 07-20 00:00: 00 [facility] CODEINE DRUG INGREDI Active Dizziness 8 00:00: 00 [facility] Codeine Propensi ty to adverse reaction s Active Dizziness 07-05 00:00: 00 [facility] ALLERGIE S NOT ON FILE SYSTEMIC Active [facility] ALLERGIE S NOT ON FILE SYSTEMIC Active [facility] ALLERGIE S NOT ON FILE SYSTEMIC Active [facility] ALLERGIE S NOT ON FILE SYSTEMIC Active [facility] ALLERGIE S NOT ON FILE SYSTEMIC Active [facility] Social History Social Habit Start Date Stop Date Quantity Comments Source ASSERTION Possible [facility] Gender identity Francisco kaur [facility] Sexual orientation [facility] Exposure to SARS-CoV-2 (event) 2021-11-04 00:00:00 2021-12-04 07:44:00 Not sure [facility] Alcohol intake 2021-07-25 00:00:00 2021-07-25 00:00:00 Lifetime non-drinker (finding) [facility] Tobacco use and exposure 2021-07-21 00:00:00 2021-07-21 00:00:00 Smokeless tobacco non-user [facility] History of Social function 2021-07-14 00:00:00 2021-07-14 00:00:00 [facility] Sex Assigned At 1940 00:00:00 1940 00:00:00 [facility] Smoking Status Start Date Stop Date Source Tobacco smoking consumption unknown [facility] Never smoked tobacco [facility] Medications Ordered Medication Name Filled Medication Name Start Date Stop Date Current Medication? Ordering Clinician Indication Dosage Frequency Signature (SIG) Comments Components Source CLONAZEPAM ORAL 12-04 09:43: 48 Yes Take by mouth. [facility] rivastigmin e 4.6 mg/24 hour patch 12-04 00:00: 00 Yes [id number] 1{patch } Apply 1 Patch to skin daily. Call office for refills. [facility] neomycin-po lymyxin-hyd rocortisone otic solution 2020-12 00:00: 00 Yes [id number] 3[drp] Place 3 Drops in right ear 4 (four) times daily. [facility] losartan-hy drochloroth iazide 50-12.5 mg per tablet 2020-12 00:00: 00 Yes [id number] 1{tbl} Take 1 tablet by mouth daily. [facility] buPROPion XL 300 mg 24 hr tablet 07-28 10:17: 13 Yes 300mg Take 300 mg by mouth daily. [facility] cephALEXin (KEFLEX) 500 mg capsule 07-25 00:00: 00 10-20 00:00 :00 No [id number] 500mg Take 1 capsule by mouth 2 (two) times daily. [facility] IRON 325 mg (65 mg iron) tablet 07-21 00:00: 00 Yes [id number] 325mg Take 1 tablet by mouth 2 (two) times daily. [facility] traZODone 50 mg tablet 07-20 00:00: 00 Yes [id number] 50mg Take 1 tablet by mouth at bedtime. [facility] escitalopra m oxalate 20 mg tablet 07-14 00:00: 00 Yes [id number] 20mg Take 1 tablet by mouth daily. [facility] losartan 25 mg tablet 07-14 00:00: 00 10-20 00:00 :00 No [id number] 25mg Take 1 tablet by mouth daily. [facility] melatonin 3 mg tablet 07-14 00:00: 00 10-20 00:00 :00 No [id number] 3mg Take 1 tablet by mouth at bedtime. [facility] Omeprazole 20 mg tablet 07-14 00:00: 00 10-20 00:00 :00 No [id number] 20mg Take 1 tablet by mouth 2 (two) times daily. [facility] amlodipine 10 mg tablet TAKE ONE (1) TABLET(S) BY MOUTH ONCE A DAY. amlodipine 10 mg tablet TAKE ONE (1) TABLET(S) BY MOUTH ONCE A DAY. No amlodipine 10 mg tablet TAKE ONE (1) TABLET(S) BY MOUTH ONCE A DAY. [facility] amlodipine 5 mg tablet 1 mg every day by oral route. amlodipine 5 mg tablet 1 mg every day by oral route. No 1mg Q1D amlodipine 5 mg tablet 1 mg every day by oral route. [facility] anastrozole 1 mg tablet 1 mg every day by oral route. anastrozole 1 mg tablet 1 mg every day by oral route. No anastrozol e 1 mg tablet 1 mg every day by oral route. [facility] atorvastati n 20 mg tablet TAKE 1 TABLET BY MOUTH EVERY DAY atorvastati n 20 mg tablet TAKE 1 TABLET BY MOUTH EVERY DAY No atorvastat in 20 mg tablet TAKE 1 TABLET BY MOUTH EVERY DAY [facility] cefuroxime axetil 250 mg tablet TAKE 1 TABLET BY MOUTH TWICE A DAY cefuroxime axetil 250 mg tablet TAKE 1 TABLET BY MOUTH TWICE A DAY No cefuroxime axetil 250 mg tablet TAKE 1 TABLET BY MOUTH TWICE A DAY [facility] Cipro 250 mg tablet 1 tablet; every 12 hrs; 3 day(s) Cipro 250 mg tablet 1 tablet; every 12 hrs; 3 day(s) No Cipro 250 mg tablet 1 tablet; every 12 hrs; 3 day(s) [facility] diclofenac 1 % topical gel USE TOPICALLY 4 TIMES A DAY NEEDED diclofenac 1 % topical gel USE TOPICALLY 4 TIMES A DAY NEEDED No diclofenac 1 % topical gel USE TOPICALLY 4 TIMES A DAY NEEDED [facility] fluticasone propionate 50 mcg/actuati on nasal spray,suspe nsion fluticasone propionate 50 mcg/actuati on nasal spray,suspe nsion No fluticason e propionate 50 mcg/actuat ion nasal spray,susp ension [facility] furosemide 20 mg tablet TAKE ONE (1) TABLET(S) BY MOUTH DAILY. furosemide 20 mg tablet TAKE ONE (1) TABLET(S) BY MOUTH DAILY. No furosemide 20 mg tablet TAKE ONE (1) TABLET(S) BY MOUTH DAILY. [facility] ipratropium bromide 42 mcg (0.06 %) nasal spray TWO SPRAYS EACH NOSTRIL TWICE A DAY ipratropium bromide 42 mcg (0.06 %) nasal spray TWO SPRAYS EACH NOSTRIL TWICE A DAY No ipratropiu m bromide 42 mcg (0.06 %) nasal spray TWO SPRAYS EACH NOSTRIL TWICE A DAY [facility] isosorbide mononitrate ER 60 mg tablet,exte nded release 24 hr TAKE ONE (1) TABLET(S) BY MOUTH ONCE A DAY. isosorbide mononitrate ER 60 mg tablet,exte nded release 24 hr TAKE ONE (1) TABLET(S) BY MOUTH ONCE A DAY. No isosorbide mononitrat e ER 60 mg tablet,ext ended release 24 hr TAKE ONE (1) TABLET(S) BY MOUTH ONCE A DAY. [facility] losartan 50 mg tablet TAKE 1 TABLET BY MOUTH EVERY DAY losartan 50 mg tablet TAKE 1 TABLET BY MOUTH EVERY DAY No losartan 50 mg tablet TAKE 1 TABLET BY MOUTH EVERY DAY [facility] losartan potassium (bulk) 50 mg losartan potassium (bulk) 50 mg No losartan potassium (bulk) 50 mg [facility] montelukast 10 mg tablet TAKE ONE (1) TABLET(S) BY MOUTH ONCE A DAY. montelukast 10 mg tablet TAKE ONE (1) TABLET(S) BY MOUTH ONCE A DAY. No montelukas t 10 mg tablet TAKE ONE (1) TABLET(S) BY MOUTH ONCE A DAY. [facility] pantoprazol e 20 mg tablet,peter yed release pantoprazol e 20 mg tablet,peter yed release No pantoprazo le 20 mg tablet,del ayed release [facility] pantoprazol e 40 mg tablet,peter yed release TAKE 1 TABLET BY MOUTH EVERY DAY pantoprazol e 40 mg tablet,peter yed release TAKE 1 TABLET BY MOUTH EVERY DAY No pantoprazo le 40 mg tablet,del ayed release TAKE 1 TABLET BY MOUTH EVERY DAY [facility] pregabalin 150 mg capsule TAKE 1 CAPSULE BY MOUTH TWICE A DAY pregabalin 150 mg capsule TAKE 1 CAPSULE BY MOUTH TWICE A DAY No pregabalin 150 mg capsule TAKE 1 CAPSULE BY MOUTH TWICE A DAY [facility] Probiotic Probiotic No Probiotic [facility] risperidone 1 mg tablet risperidone 1 mg tablet No risperidon e 1 mg tablet [facility] sertraline 25 mg tablet sertraline 25 mg tablet No sertraline 25 mg tablet [facility] trazodone 100 mg tablet TAKE 1 TABLET BY MOUTH EVERY DAY AT BEDTIME FOR INSOMNIA trazodone 100 mg tablet TAKE 1 TABLET BY MOUTH EVERY DAY AT BEDTIME FOR INSOMNIA No trazodone 100 mg tablet TAKE 1 TABLET BY MOUTH EVERY DAY AT BEDTIME FOR INSOMNIA [facility] Vital Signs Vital Name Observation Time Observation Value Comments S yesicace Height 2023-09-06 00:00:00 58 [in_i] [facility] Systolic blood pressure 2021-12-04 15:39:00 147 mm[Hg] [facility] Diastolic blood pressure 2021-12-04 15:39:00 59 mm[Hg] [place] [facility] Heart rate 2021-12-04 15:39:00 64 /min [facility] Body height 2021-12-04 15:39:00 152.4 cm [facility] Body weight 2021-12-04 15:39:00 61.1 kg [facility] BMI 2021-12-04 15:39:00 26.31 kg/m2 [facility] Oxygen saturation in Arterial blood by Pulse oximetry 2021-12-04 15:39:00 98 /min [facility] Procedures Procedure Date / Time Performed Performing Clinicia n Source Colpocleisis 2023-06-03 00:00:00 [facility] Maste[facility] 2022-09-12 00:00:00 Poli Damon edical [id number] 2022-07-23 00:00:00 CHAAB.01 [facility] Cardiac - Coronary Artery Stent 2022-07-02 00:00:00 [facility] Hysterectomy 1973-12-02 00:00:00 Loriia Nelson edical Encounters Start Date/Time End Date/Time Encounter Type Admission Type Attending Clinicians Care Facility Care Department Encounter ID Source 2024-10-19 12:30:00 2024-10-19 13:15:00 Office Visit [facility]ane [facility] [id number] [facility] 2024-10-19 11:54:48 2024-10-19 13:15:00 Outpatient Elective ZANE MARI [facility] [id number] [facility] 2024-07-31 16:33:00 2024-08-02 12:18:00 [facility] EM [facility] [id number] [facility] 2024-07-27 12:41:08 2024-07-27 13:08:01 Outpatient Elective SELZANE PLAZA [facility]OUT [id number] [facility] 2024-07-27 12:20:00 2024-07-27 12:30:00 Office Visit MarinosummerZane [facility] [id number] [facility] 11:50:00 2024-07-20 12:53:49 Office Visit KamaljitZane [facility] [id number] Albaro asencio [facility] 2024-07-20 11:44:53 2024-07-20 12:53:49 Outpatient Elective MARINOLONNYZANE Bynum [facility] [id number] [facility] 2024-02-05 00:00:00 2024-02-05 00:00:00 Outpatient GC_GCBZW_Ka diyala_S PRIV PRIV [id number] [facility] 2024-01-08 00:00:00 2024-01-08 00:00:00 Outpatient GC_GCBZW_Ka diyala_S PRIV PRIV [id number] [facility] 2023-12-11 00:00:00 2023-12-11 00:00:00 Outpatient GC_GCBZW_Ka diyala_S PRIV PRIV [id number] [facility] 2023-11-13 00:00:00 2023-11-13 00:00:00 Outpatient GC_GCBZW_Ka diyala_S PRIV PRIV [id number] [facility] 2023-10-17 00:00:00 2023-10-17 00:00:00 Outpatient GC_GCBZW_Ka diyala_S PRIV PRIV [id number] [facility] 2023-09-18 00:00:00 2023-09-18 00:00:00 Outpatient GC_GCBZW_Ka diyala_S PRIV PRIV [id number] [facility] 2023-09-06 00:00:00 2023-09-06 00:00:00 SHEILA Bashir: [address], [place] [address] , Ph. GC_GCBZW_Ka diyala_S PRIV [facility] - GC_GCBZW_Jenny fonseca [place]* [id number] [facility] 2023-08-29 00:00:00 2023-08-29 00:00:00 Vero Ortega MD: [address], [place] [address] , Ph. GC_GCBZW_Ka diyala_S PRIV [facility] - GC_GCBZW_Jenny fonseca [place]* [id number] [facility] 2023-08-26 00:00:00 2023-08-26 00:00:00 Outpatient GC_GCBZW_Ka diyala_S PRIV PRIV [id number] [facility] 2023-08-26 00:00:00 2023-08-26 00:00:00 Outpatient GC_GCBZW_Ka diyala_S PRIV PRIV [id number] [facility] 2023-08-22 00:00:00 2023-08-22 00:00:00 SHEILA Bashir: [address], [place] [address] , Ph. GC_GCBZW_Ka diyala_S PRIV [facility] - GC_GCBZW_Jenny raymundo [place]* [id number] [facility] 2023-08-01 00:00:00 2023-08-01 00:00:00 Outpatient GC_GCBZW_Ka diyala_S PRIV PRIV [id number] [facility] 2023-07-04 00:00:00 2023-07-04 00:00:00 Outpatient GC_GCBZW_Ka diyala_S PRIV PRIV [id number] [facility] 2023-06-11 00:00:00 2023-06-11 00:00:00 Outpatient GC_GCBZW_Ka diyala_S PRIV PRIV [id number] [facility] 2023-06-10 00:00:00 2023-06-10 00:00:00 Outpatient GC_GCBZW_Ka diyala_S PRIV PRIV [id number] [facility] 2023-06-03 05:24:00 2023-06-04 10:26:00 Inpatient Vero Weems HCAPM MEDI.01 [id number] [facility] 2022-07-23 10:48:00 2022-07-24 15:28:00 Inpatient Kayden Domingo HCACL INTE.02 [id number] [facility] 2022-01-24 11:00:00 2022-01-24 11:00:00 Outpatient TRACY SCHMIDT [facility] [id number] [facility] 2022-01-24 11:00:00 2022-01-24 11:00:00 Outpatient TRACY SCHMIDT [facility] [id number] [facility] 2022-01-24 11:00:00 2022-01-24 11:00:00 Outpatient TRACY SCHMIDT [facility] [id number] [facility] 2022-01-05 10:30:00 2022-01-05 10:30:00 Outpatient PHILIP GRAJEDA [facility] [id number] [facility] 2021-12-04 09:20:00 2021-12-04 10:33:16 Outpatient SHAGGY GENTILE HOWARD [facility] [id number] [facility] 2021-12-04 09:20:00 2021-12-04 10:33:16 Office Visit Shaggy Villalpando [facility] [id number] [facility] 2021-11-30 00:00:00 2021-11-30 00:00:00 Letter (Out) [facility] [id number] [facility] 2021-11-30 00:00:00 2021-11-30 00:00:00 Patient Secure Msg Doctor Unassigned, [place] [facility] [id number] [facility] 2021-11-28 20:40:00 2021-11-28 20:40:00 Outpatient BISI CARMONA [facility] [id number] [facility] 2021-11-28 11:00:00 2021-11-28 12:13:06 Outpatient R MAULIK SHERMAN OGECHUKWU [facility] [id number] [facility] 2021-11-28 11:00:00 2021-11-28 12:13:06 Office Visit Maulik Sherman [facility] [id number] [facility] 2021-11-28 11:00:00 2021-11-28 12:13:06 Outpatient R MAULIK SHERMAN OGECHUKWU [facility] [id number] [facility] 2021-11-28 09:20:00 2021-11-28 09:32:16 Outpatient BISI CARMONA [facility] [id number] [facility] 2021-11-28 09:20:00 2021-11-28 09:32:16 Urgent Care Bisi Flores [facility] 1.2.840.114 350.1.13.10 4.2.7.2.686 [id number] [facility] 2021-11-27 00:00:00 2021-11-27 00:00:00 Telephone KellyrafaelaTracy orona [facility] 1.2.840.114 350.1.13.10 4.2.7.2.686 [id number] [facility] 2021-10-31 00:00:00 2021-10-31 00:00:00 Patient Secure Msg Doctor Unassigned, [place] [facility] 1.2.840.114 350.1.13.10 4.2.7.2.686 [id number] [facility] 2021-10-30 09:35:25 2021-10-30 23:59:00 Outpatient R JONAH OTERO [facility] [id number] [facility] 2021-10-30 09:35:25 2021-10-30 23:59:00 Hospital Encounter Jonah Otero [facility] 1.2.840.114 350.1.13.10 4.2.7.2.686 [id number] [facility] 2021-10-29 11:07:00 2021-10-29 12:25:00 Emergency X ANA WHITEHEAD [facility] [id number] [facility] 2021-10-29 11:07:00 2021-10-29 12:25:00 Emergency Ana Whitehead [facility] 1.284.114 350.1.13.10 4.2.7.2.686 [id number] [facility] 2021-10-29 11:07:00 2021-10-29 12:25:00 Emergency X ANA [facility] [id number] [facility] 2021-10-20 13:45:00 2021-10-20 13:45:00 Outpatient R TRACY HARRIS [facility] [id number] [facility] 2021-10-20 11:00:00 2021-10-20 13:18:32 Outpatient R TRACY HARRIS [facility] [id number] [facility] 2021-10-20 10:53:42 2021-10-20 13:18:32 [facility] 1.840.114 350.1.13.10 4.2.7.2.686 [id number] [facility] 2021-10-20 13:00:33 2021-10-20 13:15:33 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 Pob, Adc Lab Main Ravi [facility] 1..840.114 350.1.13.10 4.2.7.2.686 [id number] [facility] 2021-10-20 00:00:00 2021-10-20 00:00:00 Orders Only Doctor Unassigned, [place] [facility] 1.84.114 350.1.13.10 4.2.7.2.686 [id number] [facility] 2021-10-02 18:03:00 2021-10-02 21:16:00 Emergency X PAM WOOTEN [facility] [id number] [facility] 2021-10-02 18:03:00 2021-10-02 21:16:00 Emergency X PAM WOOTEN [facility] [id number] [facility] 2021-10-02 18:03:00 2021-10-02 21:16:00 Emergency Pam Wooten R [facility] 1.84.114 350.1.13.10 4.2.7.2.686 [id number] [facility] 2021-09-16 00:00:00 2021-09-16 00:00:00 Patient Secure Msg Doctor Unassigned, [place] [facility] 1.2840.114 350.1.13.10 4.2.7.2.686 [id number] [facility] 2021-09-06 12:32:10 2021-09-06 13:32:10 Office Visit Shanna [facility] 1..114 350.1.13.10 4.2.7.2.686 [id number] [facility] 2021-09-06 13:00:00 2021-09-06 13:00:00 Outpatient R SHANNA [facility] [id number] [facility] 2021-09-06 13:00:00 2021-09-06 13:00:00 Outpatient JONAH DAWKINS [facility] [id number] [facility] 2021-09-06 00:00:00 2021-09-06 00:00:00 Telephone RoblesDo [facility] 1.840.114 350.1.13.10 4.2.7.2.686 [id number] [facility] 2021-08-09 00:00:00 2021-08-09 00:00:00 Patient Secure Msg Doctor Unassigned, [place] [facility] 1.0.114 350.1.13.10 4.2.7.2.686 [id number] [facility] 2021-08-04 09:20:00 2021-08-04 09:20:00 Outpatient SHAGGY GENTILE HOWARD [facility] [id number] [facility] 2021-08-04 09:20:00 2021-08-04 09:20:00 Outpatient Ambrocio IRASEMA SHAGGY SHAGGY VILLALPANDO [facility] [id number] [facility] 2021-08-04 00:00:00 2021-08-04 00:00:00 Patient Secure Msg Doctor Unassigned, [place] [facility] 1.20.114 350.1.13.10 4.2.7.2.686 [id number] [facility] 2021-08-03 09:40:00 2021-08-03 09:40:00 Outpatient R KELLYTRACY CRAIG [facility] [id number] [facility] 2021-07-28 09:40:37 2021-07-28 12:11:09 Office Visit João Philip [facility] 1.0.114 350.1.13.10 4.2.7.2.686 [id number] [facility] 2021-07-28 10:00:00 2021-07-28 10:00:00 Outpatient R PHILIP BALTAZAR [facility] [id number] [facility] 2021-07-28 00:00:00 2021-07-28 00:00:00 Orders Only Doctor Unassigned, [place] [facility] 1.20.114 350.1.13.10 4.2.7.2.686 [id number] [facility] 2021-07-27 12:52:31 2021-07-27 23:59:00 Hospital Encounter Tracy Harris [facility] 1.0.114 350.1.13.10 4.2.7.2.686 [id number] [facility] 2021-07-27 12:52:31 2021-07-27 23:59:00 Hospital Encounter Ravi [facility] 1.2840.114 350.1.13.10 4.2.7.2.686 [id number] [facility] 2021-07-27 12:51:56 2021-07-27 12:51:56 Hospital Encounter Ravi [facility] 1.2.840.114 350.1.13.10 4.2.7.2.686 [id number] [facility] 2021-07-27 12:51:56 2021-07-27 12:51:56 Hospital Encounter Ravi [facility] 1.2.840.114 350.1.13.10 4.2.7.2.686 [id number] [facility] 2021-07-27 00:00:00 2021-07-27 00:00:00 Outpatient R KELLYRAFAELATRACY ORONA [facility] [id number] [facility] 2021-07-27 00:00:00 2021-07-27 00:00:00 Patient Secure Msg Doctor Unassigned, [place] [facility] 1.2.840.114 350.1.13.10 4.2.7.2.686 [id number] [facility] 2021-07-26 00:00:00 2021-07-26 00:00:00 Telephone Tracy Harris [facility] 1.2.840.114 350.1.13.10 4.2.7.2.686 [id number] [facility] 2021-07-26 00:00:00 2021-07-26 00:00:00 Telephone [facility] 1.2.840.114 350.1.13.10 4.2.7.2.686 [id number] [facility] 2021-07-25 09:18:21 2021-07-25 09:59:32 Office Visit Berna Dong [facility] 1.2.840.114 350.1.13.10 4.2.7.2.686 [id number] [facility] 2021-07-25 09:18:21 2021-07-25 09:59:32 Office Visit Berna Dong [facility] 1.2.840.114 350.1.13.10 4.2.7.2.686 [id number] [facility] 2021-07-25 09:15:00 2021-07-25 09:15:00 Outpatient R BERNA DONG [facility] [id number] [facility] 2021-07-25 00:00:00 2021-07-25 00:00:00 Patient Secure Msg Doctor Unassigned, [place] [facility] 1.2840.114 350.1.13.10 4.2.7.2.686 [id number] [facility] 2021-07-21 11:45:00 2021-07-21 23:59:00 Hospital Encounter KellyjonnyTracy larsen [facility] 1.2840.114 350.1.13.10 4.2.7.2.686 [id number] [facility] 2021-07-21 09:17:42 2021-07-21 09:57:42 Office Visit Tracy Harris [facility] 1.2840.114 350.1.13.10 4.2.7.2.686 [id number] [facility] 2021-07-21 09:40:00 2021-07-21 09:40:00 Outpatient R TRACY HARRIS [facility] [id number] [facility] 2021-07-21 08:07:36 2021-07-21 08:22:36 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, Adc Lab Main [place], [facility] 1.2.840.114 350.1.13.10 4.2.7.2.686 [id number] [facility] 2021-07-19 00:00:00 2021-07-19 00:00:00 Patient Secure Msg Doctor Unassigned, [place] [facility] 1.2.840.114 350.1.13.10 4.2.7.2.686 [id number] [facility] 2021-07-14 14:02:17 2021-07-14 16:02:16 Office Visit Trcay Harris [facility] 1.2.840.114 350.1.13.10 4.2.7.2.686 [id number] [facility] 2021-07-14 15:45:18 2021-07-14 15:45:27 Office Visit Tracy Harris [facility] 1.2.840.114 350.1.13.10 4.2.7.2.686 [id number] [facility] 2021-07-14 14:00:00 2021-07-14 14:00:00 Outpatient R TRACY HARRIS [facility] [id number] [facility] 2021-07-14 00:00:00 2021-07-14 00:00:00 Telephone Tracy Harris [facility] 1.2.840.114 350.1.13.10 4.2.7.2.686 [id number] [facility] 2021-07-05 13:17:00 2021-07-05 17:36:00 Emergency Cresencio Bush [facility] 1.2.840.114 350.1.13.10 4.2.7.2.686 [id number] [facility] 2021-07-05 13:17:00 2021-07-05 13:17:00 Emergency X CRESENCIO BUSH [facility] [id number] [facility] Results Test Description Test Time Test Comments Results Result Co mments Source COMPREHENSIVE METABOLIC [id number] 09:17:00* Test Item Value Reference Range Interpretation Comme nts SODIUM (test code = NA) 139 mmol/L 136-145 N POTASSIUM (test code = K) 3.5 mmol/L 3.5-5.1 N CHLORIDE (test code = CL) 105 mmol/L 98-107 N CARBON DIOXIDE (test code = CO2) 25 mmol/L 21-32 N GLUCOSE (test code = GLU) 156 mg/dL 70-100 H BLOOD UREA NITROGEN (test code = BUN) 14 mg/dL 7-18 N GLOMERULAR FILTRATION RATE (test code = GFR) 57.62 >=60 L The Glomerular Filtration Rate is a [...] <18 years. CREATININE (test code = CREAT) 0.97 mg/dL 0.51-0.95 H TOTAL PROTEIN (test code = PROT) 7.1 g/dl 6.4-8.2 N ALBUMIN (test code = ALB) 3.5 g/dl 3.4-5.0 N CALCIUM (test code = CA) 9.5 mg/dL 8.5-10.1 N BILIRUBIN TOTAL (test code = BILT) 0.8 mg/dl 0.2-1.0 N SGOT/AST (test code = AST) 14 U/L 15-37 L SGPT/ALT (test code = ALT) 22 U/L 12-78 N ALKALINE PHOSPHATASE TOTAL (test code = ALKP) 73 U/L 50-136 N CBC W/AUTO [id number] 09:01:00* Test Item Value Reference Range Interpretation Comme nts WHITE BLOOD CELL (test code = WBC) 11.3 X10(3) 4.5-11.0 H RED BLOOD CELL (test code = RBC) 4.16 X10(6) 4.2-5.4 L HEMOGLOBIN (test code = HGB) 12.5 g/dL 12.5-16.0 N HEMATOCRIT (test code = HCT) 38.6 % 37.0-47.0 N MEAN CELL VOLUME (test code = MCV) 92.8 fl 78-100 N MEAN CELL HGB (test code = MCH) 30.0 pg 26.0-34.0 N MEAN CELL HGB CONCETRATION (test code = MCHC) 32.4 g/dl 30.0-37.0 N RED CELL DISTRIBUTION WIDTH (test code = RDW) 13.0 % 11.5-14.5 N PLATELET COUNT (test code = PLT) 239 X10(3) 150-400 N MEAN PLATELET VOLUME (test c ode = MPV) 10.0 fl 8.7-11.4 N NEUTROPHIL % (test code = NT%) 86.9 % 36.0-66.0 H IMMATURE GRANULOCYTE % (test code = IG%) 0.7 % 0.0-2.0 N LYMPHOCYTE % (test code = LY%) 7.1 % 16.0-50.0 L MONOCYTE % (test code = MO%) 5.1 % 0.0-13.0 N EOSINOPHIL % (test code = EO%) 0.0 % 0.0-4.5 N BASOPHIL % (test code = BA%) 0.2 % 0.0-1.5 N NUCLEATED RBC % (test code = NRBC%) 0.0 % 0-0.2 N NEUTROPHIL # (test code = NT#) 9.85 X10(3) 1.70-7.70 H IMMATURE GRANULOCYTE # (test code = IG#) 0.08 X10(3)uL 0.00-0.03 H LYMPHOCYTE # (test code = LY#) 0.80 X10(3) 0.70-4.00 N MONOCYTE # (test code = MO#) 0.58 X10(3) 0.00-0.89 N EOSINOPHIL # (test code = EO#) 0.00 X10(3) 0.00-0.60 N BASOPHIL # (test code = BA#) 0.02 X10(3) 0.00-0.20 N NUCLEATED RBC # (test code = NRBC#) 0.00 K/mm3 0.0-0.1 N RBC MORPHOLOGY REQUIRED (shoaib t code = RBCM) NO NORMAL [id number] 05:34:00* Test Item Value Reference Range Interpretation Comme nts GLUBED (test code = GLUBED) 148 mg/dL 70-105 H Performed by cer tified canning machine operator at [facility] [id number] 00:08:00* Test Item Value Reference Range Interpretation Comme nts GLUBED (test code = GLUBED) 119 mg/dL 70-105 H Performed by cer tified canning machine operator at [facility] COMPREHENSIVE METABOLIC [id number] 12:30:00* Test Item Value Reference Range Interpretation Comme nts SODIUM (test code = NA) 139 mmol/L 136-145 N POTASSIUM (test code = K) 3.9 mmol/L 3.5-5.1 N CHLORIDE (test code = CL) 109 mmol/L 98-107 H CARBON DIOXIDE (test code = CO2) 22 mmol/L 21-32 N GLUCOSE (test code = GLU) 129 mg/dL 70-100 H BLOOD UREA NITROGEN (test code = BUN) 15 mg/dL 7-18 N GLOMERULAR FILTRATION RATE (test code = GFR) 71.53 >=60 The Glomerular Filtration Rate is a calculated [...] <18 years. CREATININE (test code = CREAT) 0.81 mg/dL 0.51-0.95 TOTAL PROTEIN (test code = PROT) 5.8 g/dl 6.4-8.2 L ALBUMIN (test code = ALB) 2.8 g/dl 3.4-5.0 L CALCIUM (test code = CA) 9.0 mg/dL 8.5-10.1 N BILIRUBIN TOTAL (test code = BILT) 0.7 mg/dl 0.2-1.0 N SGOT/AST (test code = AST) 11 U/L 15-37 L SGPT/ALT (test code = ALT) 19 U/L 12-78 N ALKALINE PHOSPHATASE TOTAL (test code = ALKP) 57 U/L 50-136 N [id number] 12:30:00* Test Item Value Reference Range Interpretation Comme nts GLYCOSYLATED HEMOGLOBIN (HA1C) (test code = GLYHGB) 5.8 % <5.7 H SUGGESTED D IAGNOSIS INTERPRETATION Normal: <5.7% Prediabetes: 5.7 - 6.4% Diabetic: >/= 6.5%* DUE TO METHOD REVISION, REFERENCE RANGE HAS BEEN UPDATED * ESTIMATED AVERAGE GLUCOSE (test code = EAG) 120 MG/DL <126 CBC W/AUTO [id number] 05:49:00* Test Item Value Reference Range Interpretation Comme nts WHITE BLOOD CELL (test code = WBC) 10.4 X10(3) 4.5-11.0 N RED BLOOD CELL (test code = RBC) 3.53 X10(6) 4.2-5.4 L HEMOGLOBIN (test code = HGB) 10.6 g/dL 12.5-16.0 L HEMATOCRIT (test code = HCT) 33.0 % 37.0-47.0 L MEAN CELL VOLUME (test code = MCV) 93.5 fl 78-100 N MEAN CELL HGB (test code = MCH) 30.0 pg 26.0-34.0 N MEAN CELL HGB CONCETRATION (test code = MCHC) 32.1 g/dl 30.0-37.0 N RED CELL DISTRIBUTION WIDTH (test code = RDW) 13.1 % 11.5-14.5 N PLATELET COUNT (test code = PLT) 182 X10(3) 150-400 N MEAN PLATELET VOLUME (test c ode = MPV) 10.1 fl 8.7-11.4 N NEUTROPHIL % (test code = NT%) 78.1 % 36.0-66.0 H IMMATURE GRANULOCYTE % (test code = IG%) 0.5 % 0.0-2.0 N LYMPHOCYTE % (test code = LY%) 14.6 % 16.0-50.0 L MONOCYTE % (test code = MO%) 5.2 % 0.0-13.0 N EOSINOPHIL % (test code = EO%) 1.2 % 0.0-4.5 N BASOPHIL % (test code = BA%) 0.4 % 0.0-1.5 N NUCLEATED RBC % (test code = NRBC%) 0.0 % 0-0.2 N NEUTROPHIL # (test code = NT#) 8.16 X10(3) 1.70-7.70 H IMMATURE GRANULOCYTE # (test code = IG#) 0.05 X10(3)uL 0.00-0.03 H LYMPHOCYTE # (test code = LY#) 1.52 X10(3) 0.70-4.00 N MONOCYTE # (test code = MO#) 0.54 X10(3) 0.00-0.89 N EOSINOPHIL # (test code = EO#) 0.13 X10(3) 0.00-0.60 N BASOPHIL # (test code = BA#) 0.04 X10(3) 0.00-0.20 N NUCLEATED RBC # (test code = NRBC#) 0.00 K/mm3 0.0-0.1 N RBC MORPHOLOGY REQUIRED (shoaib t code = RBCM) NO NORMAL ARTERIAL BLOOD [id number] 17:37:00* Test Item Value Reference Range Interpretation Comme nts ARTERIAL BLOOD GAS PH (test code = PHA) 7.383 7.35-7.45 N ARTERIAL BLOOD GAS PCO2 (shoaib t code = PCO2A) 35.30 mmHg 35-55 N ARTERIAL BLOOD GAS PO2 (test code = PO2A) 75.80 mmHg 80-100 L BICARBONATE TOTAL HCO3 (test code = HCO3) 21.30 meq/L 22-26 L BASE EXCESS (test code = MARIAN) -4.10 -2.0-+2.0 L FIO2 (test code = FIO2A) 21.00 % PaO2/FiO2 (test code = [id number]) 360.00 mm/Hg ABG VENT MODE (test code = MODEA) ROOM AIR ABG TEMPERATURE (test code = TEMPA) 37 C ABG SITE (test code = SITEA) R RADIAL ALINE'S TEST (test code = ALLENS) POSITIVE HGB O2 SAT (test code = HBOSAT) 93.6 % 94-98 L CARBOXYHEMOGLOBIN (test code = HOHGBT) 1.30 % 0.0-3.0 N METHEMOGLOBIN (test code = METHGB) 1.10 % 0.0-3.0 N COMPREHENSIVE METABOLIC [id number] 17:33:00* Test Item Value Reference Range Interpretation Comme nts SODIUM (test code = NA) 132 mmol/L 136-145 L POTASSIUM (test code = K) 4.6 mmol/L 3.5-5.1 N CHLORIDE (test code = CL) 104 mmol/L 98-107 N CARBON DIOXIDE (test code = CO2) 21 mmol/L 21-32 N GLUCOSE (test code = GLU) 183 mg/dL 70-100 H BLOOD UREA NITROGEN (test code = BUN) 25 mg/dL 7-18 H GLOMERULAR FILTRATION RATE (test code = GFR) 33.35 >=60 L The Glomerular Filtration Rate is a calculated parameterbased on serum Creatinine, patient age and sex. GFR valuesless than 60 mL/min/1.73 square meters are indicative ofChronic Kidney Disease. Values less than 15 mL/min/1.73square meters indicate Kidney failure. The calculation forGFR is based on the CKD-EPI (202) calculation. This formulais race indifferent and is the recommended formula for GFRby the National Kidney Foundation for Adults.The GFR will not calculate if the sex is unknown or if thepatient's age is <18 years. CREATININE (test code = CREAT) 1.53 mg/dL 0.51-0.95 H TOTAL PROTEIN (test code = PROT) 5.7 g/dl 6.4-8.2 L ALBUMIN (test code = ALB) 3.0 g/dl 3.4-5.0 L CALCIUM (test code = CA) 8.2 mg/dL 8.5-10.1 L BILIRUBIN TOTAL (test code = BILT) 0.5 mg/dl 0.2-1.0 N SGOT/AST (test code = AST) 15 U/L 15-37 SGPT/ALT (test code = ALT) 23 U/L 12-78 N ALKALINE PHOSPHATASE TOTAL (test code = ALKP) 70 U/L 50-136 N LACTIC [id number] 17:16:00* Test Item Value Reference Range Interpretation Comme nts LACTIC ACID (test code = LACT) 1.8 mmol/l 0.4-2.0 N LACTIC [id number] 16:20:00* Test Item Value Reference Range Interpretation Comme nts LACTIC ACID (test code = LACT) 2.5 mmol/l 0.4-2.0 H UA RFLX MICROSCOPIC [id number] 15:54:00* Test Item Value Reference Range Interpretation Comme nts UA COLOR (test code = COLU) YELLOW YELLOW A UA APPEARANCE (test code = APPU) TURBID CLEAR UA GLUCOSE DIPSTICK (test co de = DGLUU) NORMAL mg/dl NORMAL UA BILIRUBIN DIPSTICK (test code = BILU) NEGATIVE mg/dl NEGATIVE UA KETONE DIPSTICK (test cod e = KETU) NEGATIVE mg/dl NEGATIVE UA SPECIFIC GRAVITY (test co de = SGU) 1.017 UA BLOOD DIPSTICK (test code = DANIEL) TRACE /UL NEGATIVE A UA PH DIPSTICK (test code = NATHAN) 5.5 4.6-8.0 UA PROTEIN DIPSTICK (test co de = PROU) 70 mg/dl NEGATIVE UA UROBILINIOGEN DIPSTICK (test code = URO) NORMAL mg/dl NORMAL UA NITRITE DIPSTICK (test co de = RHONDA) NEGATIVE NEGATIVE UA LEUKOCYTE ESTERASE DIPSTI CK (test code = LEUU) 500 /UL NEGATIVE A UA COMMENT (test code = COMU) STRAIGHT CATH A UA WBC (test code = WBCUR) >100 #/hpf 0-5 A UA RBC (test code = RBCU) 0-2 #/hpf 0-5 UA WBC CLUMPS (test code = WBCUCL) 2+ /HPF NONE A UA BACTERIA (test code = BACU) 3+ /hpf NEGATIVE A UA MUCUS (test code = MUCU) FEW /hpf NEG,FEW Indication for culture: Dysuria/FrequencyURINE SOURCE: CLEAN CATCH URINE COMPREHENSIVE METABOLIC [id number] 15:25:00* Test Item Value Reference Range Interpretation Comme nts SODIUM (test code = NA) 130 mmol/L 136-145 L POTASSIUM (test code = K) 5.0 mmol/L 3.5-5.1 N CHLORIDE (test code = CL) 103 mmol/L 98-107 N CARBON DIOXIDE (test code = CO2) 19 mmol/L 21-32 L GLUCOSE (test code = GLU) 282 mg/dL 70-100 H BLOOD UREA NITROGEN (test code = BUN) 25 mg/dL 7-18 H GLOMERULAR FILTRATION RATE (test code = GFR) 27.62 >=60 L The Glomerular Filtration Rate is a [...] <18 years. CREATININE (test code = CREAT) 1.79 mg/dL 0.51-0.95 H TOTAL PROTEIN (test code = PROT) 6.3 g/dl 6.4-8.2 L ALBUMIN (test code = ALB) 3.2 g/dl 3.4-5.0 L CALCIUM (test code = CA) 8.5 mg/dL 8.5-10.1 N BILIRUBIN TOTAL (test code = BILT) 0.6 mg/dl 0.2-1.0 N SGOT/AST (test code = AST) 22 U/L 15-37 N SGPT/ALT (test code = ALT) 27 U/L 12-78 N ALKALINE PHOSPHATASE TOTAL (test code = ALKP) 73 U/L 50-136 N [id number] 15:25:00* Test Item Value Reference Range Interpretation Comme nts LIPASE (test code = LIP) 27 U/L 13-75 N TROPI (HIGH [id number] 15:25:00* Test Item Value Reference Range Interpretation Comme [facility] TROPI (HIGH SENSITIVITY) (test code = TROPI) 13 pg/ml <=3.0 N HIGH SENSITIVITY TROPONIN MEASUREMENT/RANGES--------- Ass ay : Units : Normal : Risk Stratification : High : : (Detectable : Limit(Suggestive of : AboveTNIH : : Limit) : sequential testing) : 99 : : : : % ile --------FEMALES: pg/ml : <= 3.0 : 3.1 - 54 : >54 --------MALES : pg/ml : <= 3.0 : 3.1 - 78 : >78 --------- CBC W/AUTO [id number] 15:05:00* Test Item Value Reference Range Interpretation Comme nts WHITE BLOOD CELL (test code = WBC) 12.6 X10(3) 4.5-11.0 H RED BLOOD CELL (test code = RBC) 3.35 X10(6) 4.2-5.4 L HEMOGLOBIN (test code = HGB) 10.2 g/dL 12.5-16.0 L HEMATOCRIT (test code = HCT) 31.1 % 37.0-47.0 L MEAN CELL VOLUME (test code = MCV) 92.8 fl 78-100 N MEAN CELL HGB (test code = MCH) 30.4 pg 26.0-34.0 N MEAN CELL HGB CONCETRATION (test code = MCHC) 32.8 g/dl 30.0-37.0 N RED CELL DISTRIBUTION WIDTH (test code = RDW) 13.0 % 11.5-14.5 N PLATELET COUNT (test code = PLT) 183 X10(3) 150-400 N MEAN PLATELET VOLUME (test c ode = MPV) 10.7 fl 8.7-11.4 N NEUTROPHIL % (test code = NT%) 93.1 % 36.0-66.0 H IMMATURE GRANULOCYTE % (test code = IG%) 0.4 % 0.0-2.0 N LYMPHOCYTE % (test code = LY%) 3.1 % 16.0-50.0 L MONOCYTE % (test code = MO%) 3.2 % 0.0-13.0 N EOSINOPHIL % (test code = EO%) 0.0 % 0.0-4.5 N BASOPHIL % (test code = BA%) 0.2 % 0.0-1.5 N NUCLEATED RBC % (test code = NRBC%) 0.0 % 0-0.2 N NEUTROPHIL # (test code = NT#) 11.70 X10(3) 1.70-7.70 H IMMATURE GRANULOCYTE # (test code = IG#) 0.05 X10(3)uL 0.00-0.03 H LYMPHOCYTE # (test code = LY#) 0.39 X10(3) 0.70-4.00 L MONOCYTE # (test code = MO#) 0.40 X10(3) 0.00-0.89 N EOSINOPHIL # (test code = EO#) 0.00 X10(3) 0.00-0.60 N BASOPHIL # (test code = BA#) 0.03 X10(3) 0.00-0.20 N NUCLEATED RBC # (test code = NRBC#) 0.00 K/mm3 0.0-0.1 N RBC MORPHOLOGY REQUIRED (shoaib t code = RBCM) NO NORMAL urinalysis, [id number] 12:40:14* Test Item Value Reference Range Interpretation Comme nts Leukocytes (test code = Leukocytes) 1+ Nitrite (test code = Nitrite) negative Urobilinogen (test code = Urobilinogen) Normal Protein (test code = Protein) 2+ pH (test code = pH) 6.0 Blood (test code = Blood) Non-Hemolyzed: Trace Specific [place] (test code = Specific [place]) 1.010 Ketone (test code = Ketone) Negative Bilirubin (test code = Bilirubin) Negative Glucose (test code = Glucose) Negative Appearance (test code = Appearance) Clear Color (test code = Color) Yellow [facility], [id number] 15:24:55* Test Item Value Reference Range Interpretation Comme nts Leukocytes (test code = Leukocytes) Negative Nitrite (test code = Nitrite) negative Urobilinogen (test code = Urobilinogen) Normal Protein (test code = Protein) 1+ pH (test code = pH) 6.5 Blood (test code = Blood) Non-Hemolyzed: Trace Specific [place] (test code = Specific [place]) 1.010 Ketone (test code = Ketone) Negative Bilirubin (test code = Bilirubin) Negative Glucose (test code = Glucose) Negative Appearance (test code = Appearance) Clear Color (test code = Color) Yellow [facility]acteria identified in Urine by [id number] 00:00:00* Test Item Value Reference Range Interpretation Comme nts culture, urine (test code = culture, urine) SEE BELOW no growth A [facility] complete W Reflex Culture panel - [id number] 00:00:00* Test Item Value Reference Range Interpretation Comme nts bacteria, urine (test code = bacteria, urine) MANY none-few A blood, urine (test code = bl ood, urine) NEGATIVE negative bilirubin, urine (test code = bilirubin, urine) NEGATIVE negative cast, granular, ur (test cod e = cast, granular, ur) NOT PRESENT not present cast, hyaline, urine (test c ode = cast, hyaline, urine) NOT PRESENT not present cast, RBC, urine (test code = cast, RBC, urine) NOT PRESENT not present character (test code = character) CLOUDY clear A color (test code = color) YELLOW yellow crystals urine (test code = crystals urine) NONE none epithelial cells, ur (test c ode = epithelial cells, ur) NONE none-few glucose, urine (test code = glucose, urine) NEGATIVE negative ketone, urine (test code = ketone, urine) NEGATIVE negative leukocyte esterase (test cod e = leukocyte esterase) LARGE negative A nitrites urine (test code = nitrites urine) NEGATIVE negative pH urine (test code = pH urine) 6.0 5.0-8.0 protein, urine (test code = protein, urine) 2+,100 MG/DL negative A RBC, urine (test code = RBC, urine) 0-2 0-2 specific gravity ur (test co de = specific gravity ur) 1.015 1.003-1.030 urobilinogen urine (test cod e = urobilinogen urine) 1.0 mg/dL 0.2-1.0 WBC, urine (test code = WBC, urine) >100 0-5 H [facility] Medicalurinalysis, [id number] 13:29:00* Test Item Value Reference Range Interpretation Comme nts Leukocytes (test code = Leukocytes) 2+ Nitrite (test code = Nitrite) negative Urobilinogen (test code = Urobilinogen) Normal Protein (test code = Protein) 1+ pH (test code = pH) 6.0 Blood (test code = Blood) Non-Hemolyzed: Moderate Specific Iola (test code = Specific Iola) 1.015 Ketone (test code = Ketone) Negative Bilirubin (test code = Bilirubin) Negative Glucose (test code = Glucose) Negative Appearance (test code = Appearance) Clear Color (test code = Color) Yellow [facility] MedicalGLUCOSE BEDSIDE [id number] 07:37:00* Test Item Value Reference Range Interpretation Comme nts GLUCOSE BEDSIDE TESTING (shoaib t code = GLUBED) 110 mg/dL 70-110 N CBC W/AUTO [id number] 05:14:00* Test Item Value Reference Range Interpretation [...] c ode = MDIFF) NO DIFF/SCN CRITERIA [id number] 05:12:00* Test Item Value Reference Range Interpretation Comme nts MAGNESIUM (test code = MAG) 1.9 MG/DL 1.8-2.4 N Comment: my orderGLUCOSE BEDSIDE [id number] 16:18:00* Test Item Value Reference Range Interpretation Comme nts GLUCOSE BEDSIDE TESTING (shoaib t code = GLUBED) 230 mg/dL 70-110 H GLUCOSE BEDSIDE [id number] 15:39:00* Test Item Value Reference Range Interpretation Comme nts GLUCOSE BEDSIDE TESTING (shoaib t code = GLUBED) 172 mg/dL 70-110 H GLUCOSE BEDSIDE [id number] 12:15:00* Test Item Value Reference Range Interpretation Comme nts GLUCOSE BEDSIDE TESTING (shoaib t code = GLUBED) 166 mg/dL 70-110 H - XR CHEST 1 [id number] 14:39:00 [facility] 1940 Sex: FName: [facility] : 1940 Age/S: 82 / F [address] Unit #: [id number] Loc: [place] [address] Phys: Tha Mc MD Acct: [id number] Dis Date: Status: PRE [facility] PHONE #: [phone] Exam Date: 05/23/2023 1421 FAX #: Reason: PRE OP EXAMS: CPT: [id number] XR CHEST 1V 97474 Fluoro Time: DAP (Gy m2): Air Kerma (mGy): S 17 TIME OF STUDY: 05/23/2023 9:00 AM REASON FOR EXAM: PRE OP COMPARISON: July 24, 2022. FINDINGS: AP view of the chest was obtained. Lungs: Normal lung volume. No mass, or consolidation. Normal pulmonary vascularity. Pleura: No pleural effusion or pneumothorax. Heart and Mediastinum: Normal cardiomediastinal silhouette and calcific atherosclerosis. Surgical clips are present in the left chest. Bones: Normal regional skeletal structures. IMPRESSION: 1. No acute cardiopulmonary process. at 1439 Reported and signed by: Sunny Alamo M.D. CC: Vikram Orr MD; Vero Ortega MD; Tha Mc MD PAGE 1 Signed Report Name: [facility] : 1940 Age/S: 82 / F [address] Unit #: [id number] Loc: [place] [address] Phys: Tha Mc MD Acct: [id number] Dis Date: Status: PRE SDC PHONE #: [phone] Exam Date: 05/23/2023 1421 FAX #: Reason: PRE OPEXAMS: CPT: [id number] XR CHEST 1 V 36398 Fluoro Time: DAP (Gy m2): Air Kerma (mGy): (Continued) Technologist: Fatimah Spear Trnscb Date/Time: 05/23/2023 (1439) [email or web address] Orig Print D/T: S: 05/23/2023 (1848) PAGE 2 Signed ReportTHROMBOPLASTIN TIME [id number] 14:03:00* Test Item Value Reference Range Interpretation Comme nts THROMBOPLASTIN TIME PARTIAL (test code = PTT) 34.0 SECONDS 26-35 N PROTHROMBIN [id number] 14:03:00* Test Item Value Reference Range Interpretation [...] Myocardial Infarction (to prevent recurrent infarct). URINALYSIS [id number] 13:52:00* Test Item Value Reference Range Interpretation [...] A Urine Specimen Type: Clean CatchBASIC METABOLIC [id number] 13:52:00* Test Item Value Reference Range Interpretation [...] calculation forGFR is based on the CKD-EPI (202) calculation. This formulais race indifferent and is the recommended formula for GFRby the National Kidney Foundation for Adults.The GFR will not calculate if the sex is unknown or if thepatient's age is <18 years. CREATININE (test code = CREAT) 1.5 MG/DL 0.6-1.0 H CALCIUM (test code = CA) 8.4 MG/DL 8.5-10.1 L CBC W/AUTO [id number] 13:38:00* Test Item Value Reference Range Interpretation [...] c ode = MDIFF) NO DIFF/SCN CRITERIA [id number] 15:01:00* Test Item Value Reference Range Interpretation Comme nts SURGICAL (test code = SR) -----RUN DATE: 07/25/22 [employer] - LAB PAGE 1 RUN TIME: 1501 Specimen Inquiry RUN USER: INTERFACE -----PATIENT: NITA MAN LOC: DIMAU U #: [id number] AGE/SX: 81/F ROOM: [facility] RE07/23/22JOSE DR: Rusty Angeles : [birth year] BED: 1 DIS: 07/24/22 STATUS: DIS IN TLOC: ----- SPEC #: [id number] RECD: 07/23/22-1113 STATUS: DOTTIE GALEANO #: [id number] DIEGO: 07/23/22- SUBM DR: Rusty Angeles MD ENTERED: 07/23/22 SP TYPE: SURGICAL OTHR DR: Vikram Orr MD, Anas MDORDERED: 62948, 80450, ANATOMIC SPEC COPIES TO: Rusty Angeles MD [address] [facility] [place] [address] Vikram Orr MD [address] [id number] Kimber Bobby MD [address] [place] [address] PROCEDURES: 31375 (07/25/22-1455) 54260 (07/23/22) TISSUES: A. CAROTID PLAQUE WITH DECAL - RIGHT FINAL DIAGNOSIS Right carotid plaque, excision:Plaque tissue with calcification and degenerative changes. GROSS DESCRIPTION The specimen received in formalin in a container labeled with the patient's name anddesignated right carotid plaque consists of multiple fragments of soft tissue which inaggregate measures 2.2 cm in greatest dimension. Stereo Operator sections are submitted in1 cassette after decalcification. Technical component performed at [facility],[address] [place] [address], [place] [address] Unless gross only, the diagnosis is based upon microscopic examination.Immunohistochemis try: This test was developed and its performance characteristics CONTINUED ON NEXT PAGE -----RUN DATE: 07/25/22 [place] - LAB PAGE 2 RUN TIME: 1501 Specimen Inquiry RUN USER: INTERFACE -----SPEC #: [id number] PATIENT: NITA MAN #[id number] (Continued) GROSS DESCRIPTION (Continued) determined by this [...] Signed SIGNATURE ON FILE Tim Schrader 07/25/22 1501 ----- END OF REPORT BASIC METABOLIC [id number] 13:53:00* Test Item Value Reference Range Interpretation [...] = CA) 8.1 mg/dL 8.0-10.5 N GLUCOSE [id number] 12:13:00* Test Item Value Reference Range Interpretation Comme nts GLUCOSE BEDSIDE (test code = GLUBED) 155 MG/DL 70-110 H Performed by cer tified canning machine operator at [facility] HGBA1C%2022-07-24 04:44:00* Test Item Value Reference Range Interpretation Comme nts HGBA1C% (test code = HGBA1C%) 5.5 %A1C 4.8-6.0 N BASIC METABOLIC [id number] 04:32:00* Test Item Value Reference Range Interpretation [...] code = CA) 8.3 mg/dL 8.0-10.5 N [id number] 04:32:00* Test Item Value Reference Range Interpretation Comme nts PHOSPHOROUS (test code = PHOS) 4.2 MG/DL 2.5-4.9 N [id number] 04:32:00* Test Item Value Reference Range Interpretation Comme nts MAGNESIUM (test code = MAG) 1.46 mg/dL 1.80-2.40 L CALCIUM [id number] 04:32:00* Test Item Value Reference Range Interpretation Comme nts CALCIUM IONIZED (test code = ARIANA) 1.11 MMOL/L 1.09-1.30 N CBC W/AUTO [id number] 04:22:00* Test Item Value Reference Range Interpretation [...] = MDIFF) NO - XR CHEST 1 [id number] 00:00:00 [facility] 1940 Sex: F FAX: Riccardo Kendall [place]: St: [facility] FAX: Rusty Portillo [phone] Name: NITA MAN [facility] : 1940 Age/S: 81/F [address] [place] [address] Unit #: [id number] Loc: [address] [place] [address] Phys: KendallNateRiccardodebbie BYRD Acct: [id number] Dis Date: Status: ADM IN PHONE #: [phone] Exam Date: 07/24/2022619 FAX #: [phone] Reason: Post op EXAMS: CPT CODE: [id number] XR CHEST 1 V 57475 PROCEDURE INFORMATION: Exam: XR Chest Exam date [...] the left precluding accurate assessment of the cardiac silhouette size and hilar shadows. The pulmonary vascularity is normal. Bones/joints: Unremarkable. Soft tissues: A moderate to large hiatus hernia is present. IMPRESSION: No acute abnormality in the chest. Large retrocardiac hiatus hernia. at 0827 Reported and signed by: Jimena Whitaker M.D. CC: Riccardo Kendall; Rusty Angeles MD Technologist: Heidi Dye RT(R) Trnscrd Date/Time/By: 07/24/2022 (826): By: [email or web address] Orig Print D/T: S: 07/24/2022 (826) PAGE 1 Signed ReportGLUCOSE [id number] 20:16:00* Test Item Value Reference Range Interpretation Comme nts GLUCOSE BEDSIDE (test code = GLUBED) 186 MG/DL 70-110 H Performed by cer tified canning machine operator at [facility] GLUCOSE [id number] 11:56:00* Test Item Value Reference Range Interpretation Comme nts GLUCOSE BEDSIDE (test code = GLUBED) 149 MG/DL 70-110 H Performed by cer tified canning machine operator at [facility] BASIC METABOLIC [id number] 11:50:00* Test Item Value Reference Range Interpretation [...] = CA) 8.7 mg/dL 8.0-10.5 N HGB [id number] 11:26:00* Test Item Value Reference Range Interpretation Comme nts HEMOGLOBIN (test code = HGB) 10.9 g/dL 11.0-15.0 L HEMATOCRIT (test code = HCT) 31.7 % 33.0-45.0 L GLUCOSE [id number] 09:08:00* Test Item Value Reference Range Interpretation Comme nts GLUCOSE BEDSIDE (test code = GLUBED) 145 MG/DL 70-110 H Performed by cer tified canning machine operator at [facility] [id number] 07:58:00* Test Item Value Reference Range Interpretation Comme [facility] ACT-ISTAT (test code = ACTI) 312 SEC 74-137 H Performed by cer tified canning machine operator at [facility] UA RFLX MICR CULT IF [id number] 14:59:00* Test Item Value Reference Range Interpretation [...] srcSpecimen Description: CLEAN CATCHCOVID 19 Asymptomatic IH [id number] 14:53:00* Test Item Value Reference Range Interpretation [...] HGBA1C%) 5.6 %A1C 4.8-6.0 N COMPREHENSIVE METABOLIC [id number] 14:38:00* Test Item Value Reference Range Interpretation [...] = ALKP) 69 IUnit/L 20-125 N PROTHROMBIN [id number] 14:34:00* Test Item Value Reference Range Interpretation [...] Infarction (to prevent recurrent infarct). THROMBOPLASTIN TIME [id number] 14:34:00* Test Item Value Reference Range Interpretation Comme nts THROMBOPLASTIN TIME PARTIAL (test code = PTT) 29.3 Seconds 25.0-39.5 N Therapeutic Rang e: 50.4 - 88.3 Seconds Effective 03/17/2019 CBC W/AUTO [id number] 14:26:00* Test Item Value Reference Range Interpretation [...] = MDIFF) NO - XR CHEST 2 [id number] 00:00:00 [facility] 1940 Sex: F FAX: Rusty Portillo [phone] [place]: [address]: PRE Name: NITA MAN [facility] : 1940 Age/S: 81/F [address] [place] [address] Unit #: [id number] Loc: [place] [address] Phys: Rusty Angeles MD Acct: [id number] Dis Date: Status: PRE NCC PHONE #: [phone] Exam Date: 07/20/2022 1359 FAX #: [phone] Reason: PREOP EXAMS: CPT CODE: [id number] XR CHEST 2 V 50987 PROCEDUREINFORMATION: Exam: XR Chest Exam date and time: 07/20/2022 2:00 PM Age: 81 years old Clinical indication: Screening exam; Pre-operative exam; Other: Preop TECHNIQUE: Imaging protocol: Radiologic exam of the chest. Views: 2 views. COMPARISON: No relevant prior studies available. FINDINGS: Lungs: No focal consolidations or acute infiltrates. Increased lung volumes. Pleural spaces: Unremarkable. No pleural effusion. No pneumothorax. Heart/Mediastinum: Unremarkable. No cardiomegaly. Bones/joints: Thoracic spurring. IMPRESSION: No acute findings. at 1444 Reported and signed by: Dean Arriaga M.D. CC: Rusty Angeles MD Technologist: RT Alok(R) Trnscrd Date/Time/By: 07/20/2022 (2606) : By: [email or web address] Orig Print D/T: S: 07/20/2022 (3271) PAGE 1 Signed Report Notes Upcoming Encounters Date/Time Note Provider Source 2024-10-19 13:15:55 Zane Mari [facility] - 10/19/2024 12:30 PM [employer]INGER [employer]ER CHIEF COMPLAINT: INGROWN NAIL, RIGHT HALLUX - resolved 07/27/2024 [facility] HISTORY OF PRESENT ILLNESS: Patient returns for routine pedal evaluation, states possible ingrown nail, right hallux Patient denies pain, infection, injury, open wounds Patient states pain currently rated 0/10 on palpation, diffuse right hallux nail --- Patient returns for routine pedal evaluation in hopes to avoid complications in the lower extremity due to multiple high risk comorbidities Patient states nails are painful, thick, and elongated. Patient denies other pain, infection, injury, wounds Patient states most recent fasting blood sugar was tested this morning with a value of 120 mg/dl. PHYSICAL EXAM OF THE LOWER EXTREMITY: Vascular: (+) 1/4 pitting edema symmetrical to bilateral lower extremity, (-) ecchymosis, (-) erythema 2/4 Dorsal pedis pulse, bilateral 2/4 Posterior tibial pulse, bilateral (+) normal Capillary Refill time (+) varicosities, (-) pedal hair growth Neurological: (+) mixed sensation with 5.07 [place] Micah monofilament examination to the most distal lower extremity (+) normal response to hot, cold, sharp, blunted and vibratory sensations. (-) clonus present. Dermatological: (-) Ingrown nail (+) Nails are thick, yellow, elongated. Debrided without complications (-) signs of soft tissue infection, (-) open wounds, (-) macerations (-) abscess (-) ischemic tissue (+) normal temperature when compared to contralateral limb (+) normal color, tugor, and elasticity. Musculoskeletal: (-) pain on palpation, right hallux nail (-) pain on palpation through the lower extremity (+) Semi-rigid hammertoe deformities, BILATERAL (-) other gross osseous abnormalities 5/5 muscle strength to extrinsic pedal muscle groups (-) evidence of compartment syndrome, (-) evidence of deep vein thrombosis Pathology right foot hallux digit nail biopsy 09/16/2023: (-) fungal elements. 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 TREATMENT PLAN: - Extensive office visit WITH DAUGHTER discussing possible pedal complications associated with co-morbidities - INGROWN NAIL - resolved, no further treatment indicated - Nails - debrided without complications - nail biopsy -biopsy site is resolved therefore no bandage indicated, since no fungal elements seen no medication indicated, may use topical antifungal as needed for prevention - Medication - moisturize feet daily to help prevent ulcerations and xerosis - Vascular - no further intervention indicated palpable pedal pulses, no open wounds, no ischemic tissue. - Edema - compression stockings advised - Shoes - patient educated to obtain diabetic shoes, custom molded inserts - Diabetic management - spent significant time discussing and educating patient about appropriate diabetic management and care for the lower extremity. Patient also advised to follow-up with detailed regimen with PCP - Return 12 weeks for routine pedal eval Patient advised to report to my clinic or the emergency room immediately with any questions or concerns. Patient Instructions: Discussion: A detailed discussion was provided to the patient with specific reference to etiology, pathology, alternate treatment options, and prognosis. All risks and complications (including side effects) with each treatment/medication alternative were outlined in detail including but not limited to: Pain, swelling, numbness,loss of function, loss of limb, bleeding, hematoma, scarring, failure to relieve condition, surgery, additional/revisional surgery, reflex sympathetic dystrophy, complex regional pain syndrome, reoccurrence of deformity, joint stiffness, flail toe, bone and/or soft tissue infection, blood clots, pulmonary embolism, possible ,delayed or non-healing. X-rays, graphs and drawings were all used to assist with patient comprehension when appropriate. All patients questions were answered and stated they fully understood. No guarantee as to results or outcome of treatment was made. I have discussed with the patient or legally responsible person prior to obtaining consent: the risks, potential benefits and drawbacks, significant alternatives, potential for problems related to recuperation, likelihood of success, and possible results of non-treatment, and the patient or the legally responsible person has agreed to proceed. [facility] Due Date Last Done Comments Medicare Annual Wellness (AWV) 1940 Annual Physical 1943 Pneumococcal Vaccine: 65+ Ye ars (1 of 2 - PCV) 1945 Diabetes: Foot Exam 1949 Diabetes: Retinopathy Screening 1949 DTaP/Tdap/Td Vaccines (1 - Tdap) 1958 Zoster Vaccines (1 of 2) 1989 Respiratory Syncytial Virus (RSV) or >=60 (1 - 1-dose 75+ series) 2014 Diabetes: Hemoglobin A1C 04/19/2022 10/20/2021 Diabetes: Urine Protein Screening 07/21/2022 021 Lipid Panel 07/21/2022 07/21/2021 Influenza Vaccine (#1) 2024 HIB Vaccines Aged Out No longer eligi ble based on patient's age to complete this topic HPV Vaccines Aged Out No longer eligi ble based on patient's age to complete this topic Hepatitis A Vaccines Aged Out No long er eligible based on patient's age to complete this topic Hepatitis B Vaccines Aged Out No long er eligible based on patient's age to complete this topic IPV Vaccines Aged Out No longer eligi ble based on patient's age to complete this topic Meningococcal Vaccine Aged Out No racquel marychuy eligible based on patient's age to complete this topic Rotavirus Vaccines Aged Out No longer eligible based on patient's age to complete this topic [place] [address]-11-18 13:15:55 Diagnosis Abnormal foot finding - [id number] 13:15:55 [place] [address]-11-18 13:15:54* Zane Mari, [facility] - 10/19/2024 12:30 PM [employer] CHIEF COMPLAINT: INGROWN NAIL, RIGHT HALLUX - resolved 07/27/2024 [facility] HISTORY OF PRESENT ILLNESS: Patient returns for routine pedal evaluation, states possible ingrown nail, right hallux Patient denies pain, infection, injury, open wounds Patient states pain currently rated 0/10 on palpation, diffuse right hallux nail --- Patient returns for routine pedal evaluation in hopes to avoid complications in the lower extremity due to multiple high risk comorbidities Patient states nails are painful, thick, and elongated. Patient denies other pain, infection, injury, wounds Patient states most recent fasting blood sugar was tested this morning with a value of 120 mg/dl. PHYSICAL EXAM OF THE LOWER EXTREMITY: Vascular: (+) 1/4 pitting edema symmetrical to bilateral lower extremity, (-) ecchymosis, (-) erythema 2/4 Dorsal pedis pulse, bilateral 2/4 Posterior tibial pulse, bilateral (+) normal Capillary Refill time (+) varicosities, (-) pedal hair growth Neurological: (+) mixed sensation with 5.07 [place] Micah monofilament examination to the most distal lower extremity (+) normal response to hot, cold, sharp, blunted and vibratory sensations. (-) clonus present. Dermatological: (-) Ingrown nail (+) Nails are thick, yellow, elongated. Debrided without complications (-) signs of soft tissue infection, (-) open wounds, (-) macerations (-) abscess (-) ischemic tissue (+) normal temperature when compared to contralateral limb (+) normal color, tugor, and elasticity. Musculoskeletal: (-) pain on palpation, right hallux nail (-) pain on palpation through the lower extremity (+) Semi-rigid hammertoe deformities, BILATERAL (-) other gross osseous abnormalities 5/5 muscle strength to extrinsic pedal muscle groups (-) evidence of compartment syndrome, (-) evidence of deep vein thrombosis Pathology right foot hallux digit nail biopsy 09/16/2023: (-) fungal elements. 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 TREATMENT PLAN: - Extensive office visit WITH DAUGHTER discussing possible pedal complications associated with co-morbidities - INGROWN NAIL - resolved, no further treatment indicated - Nails - debrided without complications - nail biopsy -biopsy site is resolved therefore no bandage indicated, since no fungal elements seen no medication indicated, may use topical antifungal as needed for prevention - Medication - moisturize feet daily to help prevent ulcerations and xerosis - Vascular - no further intervention indicated palpable pedal pulses, no open wounds, no ischemic tissue. - Edema - compression stockings advised - Shoes - patient educated to obtain diabetic shoes, custom molded inserts - Diabetic management - spent significant time discussing and educating patient about appropriate diabetic management and care for the lower extremity. Patient also advised to follow-up with detailed regimen with PCP - Return 12 weeks for routine pedal eval Patient advised to report to my clinic or the emergency room immediately with any questions or concerns. Patient Instructions: Discussion: A detailed discussion was provided to the patient with specific reference to etiology, pathology, alternate treatment options, and prognosis. All risks and complications (including side effects) with each treatment/medication alternative were outlined in detail including but not limited to: Pain, swelling, numbness,loss of function, loss of limb, bleeding, hematoma, scarring, failure to relieve condition, surgery, additional/revisional surgery, reflex sympathetic dystrophy, complex regional pain syndrome, reoccurrence of deformity, joint stiffness, flail toe, bone and/or soft tissue infection, blood clots, pulmonary embolism, possible ,delayed or non-healing. X-rays, graphs and drawings were all used to assist with patient comprehension when appropriate. All patients questions were answered and stated they fully understood. No guarantee as to results or outcome of treatment was made. I have discussed with the patient or legally responsible person prior to obtaining consent: the risks, potential benefits and drawbacks, significant alternatives, potential for problems related to recuperation, likelihood of success, and possible results of non-treatment, and the patient or the legally responsible person has agreed to proceed. [facility]2024-11-18 13:15:54Upcoming Encounters Health Maintenance Due Date Last Done Comments Medicare Annual Wellness (AWV) 1940 Annual Physical 1942 Pneumococcal Vaccine: 65+ Ye ars (1 of 2 - PCV) 1945 Diabetes: Foot Exam 1949 Diabetes: Retinopathy Screening 1949 DTaP/Tdap/Td Vaccines (1 - Tdap) 1958 Zoster Vaccines (1 of 2) 1989 Respiratory Syncytial Virus (RSV) or >=60 (1 - 1-dose 75+ series) 2014 Diabetes: Hemoglobin A1C 04/19/2022 10/20/2021 Diabetes: Urine Protein Screening 07/21/2022 021 Lipid Panel 07/21/2022 07/21/2021 Influenza Vaccine (#1) 2024 HIB Vaccines Aged Out No longer eligi ble based on patient's age to complete this topic HPV Vaccines Aged Out No longer eligi ble based on patient's age to complete this topic Hepatitis A Vaccines Aged Out No long er eligible based on patient's age to complete this topic Hepatitis B Vaccines Aged Out No long er eligible based on patient's age to complete this topic IPV Vaccines Aged Out No longer eligi ble based on patient's age to complete this topic Meningococcal Vaccine Aged Out No racquel marychuy eligible based on patient's age to complete this topic Rotavirus Vaccines Aged Out No longer eligible based on patient's age to complete this topic [id number] 13:15:54 Diagnosis Abnormal foot finding - Prim celina [id number] 13:15:54 [id number] 10:56:00 [facility] ([facility]) Hospitalist Discharge Summary REPORT#:[id number] REPORT STATUS: Signed REPORT INITIALIZATION DATE:08/02/24 TIME: 105 PATIENT: NITA MAN UNIT #: [id number] ROOM/BED: [address] : 39 AGE: 83 SEX: F ATTEND: Ronald Ochoa MD ADM AUTHOR: Jhoan Fuentes MD R1 REPT SERVICE DT/TIME: 08/02/24 1056 * ALL edits or amendments must be made on the electronic/computer document * Jhoan Solis 08/02/24 1056: General Information Problem List/A P: 1. UTI (urinary tract infection) 2. Weakness 3. Encephalopathy Date of admission: Observation Start Date: Date of admission: 07/31/24 Discharge date: 08/02/24 Admission diagnosis: UTI Metabolic encephalopathy Weakness CAD Diabetes Hypertension Hyperlipidemia Diabetic neuropathy Discharge diagnosis: UTI Diabetes Hypertension Weakness/metabolic encephalopathy Hospital course: Even though this patient is during admission was found to have mild altered mental status associated with weakness, was found during admission labs that the patient had abnormal pathologic urinalysis with UTI. Patient did not have any features for sepsis. Patient came back positive for gram-negative rods on urine culture but negative blood cultures. Patient was started on IV ceftriaxone since admission patient. Clinically improved regarding signs/symptoms of UTI. On today's rounding with the rectal tube, patient was found clinically improved chronic conditions to be discharged. Family was at bedside and they were explained in detail about her current condition and plan at instructions for following patient with her PCP in the next 5 days. Also patient and family were instructed about warning signs/symptoms, and instructed to come back to ED NITA. I have seen and discussed this patient with my attending, Dr. Garcia, who agrees with the assessment and workup plan. Jhoan Solis MD UTR PGY3 Associated exam: GEN: Healthy appearing, well-developed, NAD. PSYCH: Good Judgment. AOx3. Mild memory impairment, normal mood, and affect. HEENT: -Head: NC/AT; -Eyes: No discharge or redness; -Ears: External ears are normal. -Nose: Normal nares. -Mouth and throat: Oral mucosa moist. CV: RRR, no m/r/g. LUNGS: CTAB, no w/r/c. ABD: Soft, NT/ND, NBS, no masses or organomegaly. : N/A SKIN: Warm, well perfused. No skin rashes or abnormal lesions. MSK: Normal gait. No deformities. EXT: No clubbing, cyanosis, or edema. NEURO: Not Ambulating but normal muscle strenght in lower limbs with no limitations. No focal deficits. Pt. condition on discharge: improved, stable Allergies: Allergies: sulfamethoxazole (From BACTRIM) (Coded, Severe, DIARRHEA, 05/23/23) trimethoprim (From BACTRIM) (Coded, Severe, DIARRHEA, 05/23/23) SBIRT: Patient COVID-19: Discharge Plan Pt. disposition at DC: home Med Rec Med Rec Discharge meds: Start taking the following new medications: CEFDINIR (OMNICEF) 300 MG CAP 300 MILLIGRAM ORAL EVERY 12 HOURS. Days = 5 Qty = 10 No Refills Objective Cardiovascular: normal capillary refill, regular rate rhythm, no gallop Respiratory: aerating well, no distress Abdomen: tenderness, soft, no distention, no guarding, no rebound Genitourinary: no urinary catheter Extremities: moves all, no cyanosis, no edema Neuro/ADOBE CQ DEVELOPER: alert, oriented X 3, normal speech, no motor deficits, no sensory deficits Discharge Instructions PCP PCP follow-up: PCP: DOES_NOT KNOW Discharge to: Home/Self Care Additional Discharge Routines: PCP Follow-Up Diet: Diabetic Activity: Resume Normal Activity, As Tolerated Notify PCP of these S/S: Temp. 101 or greater Follow-up Appointments PCP follow-up: PCP: DOES_NOT KNOW PCP follow up timeframe: In 5 days Special instructions: Pt DC on PO Cefdinir x5 days Start Home Physical Therapy Ronald Ochoa 08/03/24 0750: Attestations Physician Attestation Agree w/findings plan: I have personally reviewed charting, assessment, and plan. At least 50% of the encounter including physical exam was performed by me. I agree with what is documented by the resident. at 1130 at 0750 RPT #:[id number] END OF [id number] 11:26:00 [facility] ([facility]) Hospitalist Progress Note REPORT#:[id number] REPORT STATUS: Signed REPORT INITIALIZATION DATE:08/01/24 TIME: 112 PATIENT: NITA MAN UNIT #: [id number] ROOM/BED: [address] : [address] AGE: 83 SEX: F ATTEND: Ronald Ochoa MD ADM AUTHOR: Chino Herrera MD R1 REPT SERVICE DT/TIME: 08/01/24 1126 * ALL edits or amendments must be made on the electronic/computer document * Chino Herrera 08/01/24 1126: Subjective Chief complaint: Generalized weakness and confusion. HPI: She is hemodynamically stable. She reports only suprapubic pain and denies any chest pain or fever. Review of Systems Respiratory: Denies: LOZANO (dyspnea on exertion), SOB. Cardiovascular: Denies: chest pain, palpitations. : Reports: urinary retention. Objective General VS/I O: Vital Signs: Date Time Temp Pulse Resp B/P B/P Pulse O2 O2 Flow FiO2 Mean Ox Delivery Rate 08/01 0656 97.5 75 17 142/68 92.5 93 Room air 07/31 2305 98.2 79 16 131/76 94.2 93 07/31 1804 98.2 84 15 126/65 85.2 94 07/31 1550 98.4 81 18 121/56 77 95 Room air 07/31 1444 98.0 88 16 120/86 97 98 Room air 0 24 hour I O ending at 0700: 08/01 0700 07/31 1900 Intake Total Output Total 1150 Balance -1150 Number Voids 2 Output, Urine 1150 Patient 59.091 kg Weight Weight Standing scale Measurement Method PATIENT WEIGHT: Weight (lb): Weight (oz): Weight (kg): 59.091 Medications: Active Meds + DC'd Last 24 Hrs Insulin Human Lispro (Humalog) LOW DOSE SLIDING SCALE Q6HR SUBQ Aspirin (ASPIRIN EC) 81 MG DAILY PO Ceftriaxone Sodium (cefTRIAXone) 2,000 MG DAILY IV Sodium Chloride (SODIUM CHLORIDE 10ml) 20 ML Clopidogrel Bisulfate (CLOPIDOGREL BISULFATE) 75 MG DAILY PO Dextrose/Water (DEXTROSE 50% SYRINGE) 25 ML ASDIR PRN IV (CKD) Glucagon (GLUCAGON) 1 MG ASDIR PRN IM Atorvastatin Calcium (LIPITOR) 80 MG BEDTIME PO Acetaminophen (TYLENOL) 650 MG Q6H PRN PRN PO Acetaminophen/Codeine Phosphate (TYLENOL # 3) 1 UDTAB Q4H PRN PRN PO Dextrose/Water (DEXTROSE 50% SYRINGE) 25 ML ASDIR PRN IV (DC) Docusate Sodium (COLACE) 100 MG BID PRN PO Glucagon (GLUCAGON) 1 MG ASDIR PRN IM (DC) Hydralazine HCl (APRESOLINE) 10 MG Q6H PRN PRN IV Lactated Ringer's (LACTATED RINGERS) 1,000 ML .Q20H IV Morphine Sulfate (morphine SULFATE) 0.5 MG Q4H PRN PRN IV Ceftriaxone Sodium (Rocephin) 1,000 MG X1ED STA IV (DC) Sodium Chloride (SODIUM CHLORIDE 10ml) 10 ML Sodium Chloride (SODIUM CHLORIDE 0.9% 1000ml) 1,000 ML X1ED STA IV (DC) Sodium Chloride (SODIUM CHLORIDE 0.9% 1000ml) 1,000 ML X1ED STA IV (CAN) Aspirin (ASPIRIN) 324 MG X1ED STA PO (DC) Physical Exam Cardiovascular: normal capillary refill, regular rate rhythm, no gallop Respiratory: aerating well, no distress Abdomen: tenderness, soft, no distention, no guarding, no rebound Genitourinary: no urinary catheter Extremities: moves all, no cyanosis, no edema Neuro/ADOBE CQ DEVELOPER: alert, oriented X 3, normal speech, no motor deficits, no sensory deficits Results Findings/Data: Laboratory Tests 07/31 1730 Blood Gas Puncture Site R RADIAL ABG pH (7.35 - 7.45) 7.383 ABG pCO2 (35 - 55 mmHg) 35.30 ABG pO2 (80 - 100 mmHg) 75.80 L ABG PO2/FiO2 Ratio (mm/Hg) 360.00 ABG HCO3 (22 - 26 meq/L) 21.30 L ABG Base Excess (-2.0 - +2.0) -4.10 L Aline Test POSITIVE Hgb O2 Saturation (94 - 98 %) 93.6 L Carboxyhemoglobin (0.0 - 3.0 %) 1.30 Methemoglobin (0.0 - 3.0 %) 1.10 Temperature (C) 37 Vent Mode ROOM AIR FiO2 (%) 21.00 Laboratory Tests 07/31 07/31 07/31 07/31 1709 1709 1612 1455 Chemistry Sodium (136 - 145 mmol/L) 132 L 130 L Potassium (3.5 - 5.1 mmol/L) 4.6 5.0 Chloride (98 - 107 mmol/L) 104 103 Carbon Dioxide (21 - 32 mmol/L) 21 19 L BUN (7 - 18 mg/dL) 25 H 25 H Creatinine (0.51 - 0.95 mg/dL) 1.53 H 1.79 H Estimated GFR (MDRD) (>=60) 33.35 L 27.62 L Glucose (70 - 100 mg/dL) 183 H 282 H Lactic Acid (0.4 - 2.0 mmol/l) 1.8 2.5 H Calcium (8.5 - 10.1 mg/dL) 8.2 L 8.5 Total Bilirubin (0.2 - 1.0 mg/dl) 0.5 0.6 AST (15 - 37 U/L) 15 22 ALT (12 - 78 U/L) 23 27 Alkaline Phosphatase (50 - 136 U/L) 70 73 Troponin I High Sens (<=3.0 pg/ml) 13 Total Protein (6.4 - 8.2 g/dl) 5.7 L 6.3 L Albumin (3.4 - 5.0 g/dl) 3.0 L 3.2 L Lipase (13 - 75 U/L) 27 Laboratory Tests 08/01 07/31 0535 1455 Hematology WBC (4.5 - 11.0 X10(3)) 10.4 12.6 H RBC (4.2 - 5.4 X10(6)) 3.53 L 3.35 L Hgb (12.5 - 16.0 g/dL) 10.6 L 10.2 L Hct (37.0 - 47.0 %) 33.0 L 31.1 L MCV (78 - 100 fl) 93.5 92.8 MCH (26.0 - 34.0 pg) 30.0 30.4 MCHC (30.0 - 37.0 g/dl) 32.1 32.8 RDW (11.5 - 14.5 %) 13.1 13.0 Plt Count (150 - 400 X10(3)) 182 183 MPV (8.7 - 11.4 fl) 10.1 10.7 Neut % (Auto) (36.0 - 66.0 %) 78.1 H 93.1 H Lymph % (Auto) (16.0 - 50.0 %) 14.6 L 3.1 L Donley % (Auto) (0.0 - 13.0 %) 5.2 3.2 Eos % (Auto) (0.0 - 4.5 %) 1.2 0.0 Baso % (Auto) (0.0 - 1.5 %) 0.4 0.2 Immature Gran # (Auto) (0.00 - 0.03 X10(3)uL) 0.05 H 0.05 H Absolute Neuts (auto) (1.70 - 7.70 X10(3)) 8.16 H 11.70 H Absolute Lymphs (auto) (0.70 - 4.00 X10(3)) 1.52 0.39 L Absolute Monos (auto) (0.00 - 0.89 X10(3)) 0.54 0.40 Absolute Eos (auto) (0.00 - 0.60 X10(3)) 0.13 0.00 Absolute Basos (auto) (0.00 - 0.20 X10(3)) 0.04 0.03 Absolute Nucleated RBC (0.0 - 0.1 K/mm3) 0.00 0.00 Immature Gran % (0.0 - 2.0 %) 0.5 0.4 Nucleated RBC % (0 - 0.2 %) 0.0 0.0 RBC Morphology (NORMAL) NO NO Laboratory Tests 07/31 152 Toxicology Ketones (NEGATIVE mg/dl) NEGATIVE Laboratory Tests 07/31 1523 Urines Urine Color (YELLOW) YELLOW A Urine Appearance (CLEAR) TURBID Urine pH (4.6 - 8.0) 5.5 Ur Specific [place] 1.017 Urine Protein (NEGATIVE mg/dl) 70 Urine Glucose (UA) (NORMAL mg/dl) NORMAL Urine Blood (NEGATIVE /UL) TRACE H Urine Nitrite (NEGATIVE) NEGATIVE Urine Bilirubin (NEGATIVE mg/dl) NEGATIVE Urine Urobilinogen (NORMAL mg/dl) NORMAL Ur Leukocyte Esterase (NEGATIVE /UL) 500 H Urine RBC (0 - 5 #/hpf) 0-2 Urine WBC (0 - 5 #/hpf) >100 H Urine WBC Clumps (NONE /HPF) 2+ H Urine Bacteria (NEGATIVE /hpf) 3+ H Urine Mucus (NEG,FEW /hpf) FEW Urine Comment STRAIGHT CATH A Radiology data: Recent Impressions: RADIOLOGY - XR CHEST 1 V 07/31 1542 Report Impression - Status: SIGNED Entered: 07/31/2024 1612 Impression: Large frontal density over the left midlung zone/breast, with postsurgical changes of the axilla or chest wall. 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 Please correlate with surgical history to ensure this is not a mass. No acute findings of the chest. Impression By: Damian - Jose Sawant MD CAT SCAN - CT HEAD/BRAIN W/O CONT 07/31 2115 Report Impression - Status: SIGNED Entered: 07/31/20242139 IMPRESSION: No evidence of acute intracranial abnormality. Chronic microvascular ischemic changes and atrophy. Impression By: [email or web address] Polo RUIZ M.D. CAT SCAN - CT ABD PELVIS W/O CONT 07/31 2115 Report Impression - Status: SIGNED Entered: 07/31/20242144 IMPRESSION: Significant scarring in both kidneys. Nonobstructing right renal stone. No hydronephrosis. Tiny pocket of air along the dome of the urinary bladder may be iatrogenic. Infection may also be considered. Diverticulosis without evidence of diverticulitis. Impression By: [email or web address] Polo RUIZ M.D. Diagnosis, Assessment Plan Hospital course to date: An 83-year-old female patient with cardiovascular risk factors due to age and a sedentary lifestyle, with a history of hypertension managed with Losartan- Hydrochlorothiazide 50/12.5 mg once daily and Amlodipine 10 mg. She has a history of chronic ischemic heart disease due to an ischemic event three years ago, currently managed with Atorvastatin and mononitrate isosorbide, and a nuclear stress test performed a week ago with results still pending. Additionally, she has anxiety-depressive disorder and dementia, managed with escitalopram and lorazepam, and a history of breast cancer that required a mastectomy two years ago with chemotherapy, although the duration of treatment is unspecified. She also had a carotid endarterectomy for significant right carotid artery disease, and a surgical history of left knee arthroplasty. The family and the patient describe the current illness as beginning today, characterized by generalized weakness that limited her functional capacity. Family members report that she was unable to stand while walking. She also reports an episode of diarrheal evacuations but does not specify the quantity and duration. Concurrently, they noticed a deterioration in her orientation and ability to perform her daily tasks, prompting her to be brought to this facility. Upon arrival, her vital signs were stable: blood pressure 120/86, heart rate 81, temperature 98.4 F, oxygen saturation 95% on room air, and respiratory rate 18 breaths per minute. The patient is currently disoriented but responds when called, is alert, and reports episodes of chest discomfort with a mildly tender abdomen upon palpation in both flanks and the suprapubic region. Laboratory results show a hemoglobin level of 12.6, segmented neutrophils at 93.1%, platelets at 183, sodium at 132, potassium at 4.6, chloride at 104, bicarbonate at 21, BUN at 25, creatinine at 1.79 with an initial estimated glomerular filtration rate of 27.6, initial glucose at 282, and an initial lactic acid level of 2.5. The urinalysis is markedly pathological, and albumin is low at 3.0. Given these findings, admission is planned in the context of a suspected urinary tract infection of urinary origin, etiology under study. Samples are taken for culture and urinalysis, and the patient is admitted for antibiotic therapy while awaiting results, as well as cardiovascular monitoring including cardiac enzymes and electrocardiographic monitoring, in view of chronic changes indicated by the presence of pathological Q waves in leads II and III with a slight persistent elevation of the ST segment in those leads, probably related to a previous ischemic event. Today, the patient is hemodynamically stable. She reports only suprapubic pain and denies any chest pain or fever. Her blood pressure has been generally well- controlled, so we will continue with PRN medications for now. She remains normothermic, with normal oxygen saturation on room air. Physical examination reveals tenderness in the suprapubic area associated with bladder distension, without guarding or rebound tenderness. Therefore, a straight catheterization has been ordered to address urinary retention. The patient has been more alert and communicative today. The comprehensive metabolic panel (CMP) results are still pending. The last blood urea nitrogen (BUN) and creatinine levels showed a decrease in creatinine to 1.53. Her blood glucose level at admission was 282, although she denied a history of diabetes; an HbA1c test has been ordered due to this elevated glucose level. Her most recent sodium level was 153, likely related to hyperglycemia causing possible pseudohyponatremia. She is currently being treated with lactated Ringer's solution and an insulin sliding scale. Given her history of carotid artery disease and chronic ischemic disease, we will continue atorvastatin, but the dose will be reduced to 40 mg daily, and aspirin will be maintained for secondary prevention. The head CT scan showed changes consistent with chronic ischemic changes and atrophy, without evidence of acute abnormalities, so clopidogrel will be discontinued, and she will continue with aspirin monotherapy as antiplatelet therapy. The CT scan of the abdomen and pelvis indicated changes compatible with a non-obstructive right renal stone, and some air along the dome of the urinary bladder, possibly related to infection. Urine cultures are showing gram-negative rods but are still in progress; she will continue on ceftriaxone. During rounds with Dr. Garcia, it was decided to continue with the current management plan. Problem List/A P: 1. UTI (urinary tract infection) 2. Weakness 3. Encephalopathy Free Text DxA P Notes Free text DxA P notes: Acute problems: Urinary Tract Infection (UTI) without Hematuria. Urinary Retention by possible Neurogenic Bladder. Metabolic Acidosis Lactic Acidosis (Non-Septic) Dehidration Chronic Kidney Disease Stage 3 with Superimposed Acute Kidney Injury Chronic Ischemic Heart Disease with Previous Myocardial Infarction Hyperglicemia with no history of diabetes, probably new diagnose of Type 2 Diabetes. Essential Hypertension Electrolyte Disorders History of Breast Cancer, Status Post Mastectomy History of Anxiety-Depressive Disorder and Vascular Dementia Acute abnormal physiologies: Mild Normocytic Anemia (10.2), POA, likely related to chronic diseases. Hyponatremia (132), POA Hypocalcemia (8.2), POA. Hyperglicemia (282), POA. Lactic Acidosis (2.5), POA. 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 Urinalysis indicates a UTI. Laboratory findings also show leukocytosis and acute kidney injury. - Continue empirical intravenous antibiotics with Ceftriaxone. - Urine culture and sensitivity to tailor antibiotic therapy. - Monitoring renal function and electrolyte balance - Straight Cath was ordered. - Monitorize urine output. Metabolic Acidosis: she presents with metabolic acidosis, as indicated by elevated lactate levels (2.58 mmol/L) and an anion gap, likely secondary to reduced perfusion from chronic kidney disease or dehydration. Plan: - Monitor blood gases and bicarbonate levels - Continue intravenous fluids w/LR to mantain renal perfusion and correct dehydration. Lactic Acidosis (Non-Septic) she has elevated lactate level (2.58 mmol/L) likely due to chronic kidney disease and reduced perfusion rather than sepsis. - Continue monitoring lactate levels to assess response to therapy. - Maintain IV fluids and monitor renal function to optimize perfusion. Dehydration: she shows signs of dehydration, which may be contributing to metabolic acidosis and acute kidney injury. - C/intravenous fluids to rehydrate and restore electrolyte balance. - Monitor fluid status and adjust infusion rates based on clinical response and renal function. - Reassess hydration status. Chronic Kidney Disease Stage 3 with Superimposed Acute Kidney Injury: she has a history of CKD and presents with an elevated creatinine level (1.79 mg/dL), indicating superimposed DARIUS. The DARIUS is likely related to dehydration and infection. - Monitor renal function with daily creatinine and BUN levels. - Continue IV fluids cautiously to prevent overload, especially considering cardiac history. Chronic Ischemic Heart Disease with Previous Myocardial Infarction: she has a history of ischemic heart disease with ECG findings indicating chronic changes from a prior ischemic event. Pending results of a recent nuclear stress test. - Continue current cardiac medications (atorvastatin, aspirin). - Start a beta-shakir like metoprolol tartrate 12.5 mg twice daily. - Monitor cardiac enzymes to rule out acute myocardial infarction. - Continuous ECG monitoring for any new ischemic changes. - Consult cardiology for further management recommendations. Essential Hypertension: currently at 142/68 mmHg on the current regimen. - Start home medications (Losartan-Hydrochlorothiazide and Amlodipine) only if are needed. - Metoprolol was initiated. - Monitor blood pressure. Electrolyte Disorders: she has hyponatremia (Sodium 132 mEq/L). - Monitor electrolyte blood levels. History of Breast Cancer, Status Post Mastectomy: she had a right mastectomy and chemotherapy two years ago. - Follow-up with oncology as outpatient. Anxiety-Depressive Disorder and Vascular Dementia: managed with escitalopram and lorazepam, ASA and statin. - Continue current psychiatric medications + ASA + High intensity dose of Atorvastatin. - Monitor mental status closely due to current disorientation. I have seen, examined, and discussed management plan with my attending Dr. Garcia. Chino Gomez MD For any questions after 6 PM to 6 AM please call the [facility] hospitalist on-call. Ronald Ochoa 08/02/24 1105: Attestations Physician Attestation Agree w/findings plan: I have personally reviewed charting, assessment, and plan. At least 50% of the encounter including physical exam was performed by me. I agree with what is documented by the resident. at 1807 at 1105 RPT #:[id number] END OF [id number] 17:50:00 [facility] ([facility]) Hospitalist History Physical REPORT#:[id number] REPORT STATUS: Signed REPORT INITIALIZATION DATE:07/31/24 TIME: 1750 PATIENT: NITA MAN UNIT #: [id number] ROOM/BED: H.423-A : 39 AGE: 83 SEX: F ATTEND: Ronald Ochoa MD ADM AUTHOR: Chino Herrera MD R1 REPT SERVICE DT/TIME: 07/31/241749 * ALL edits or amendments must be made on the electronic/computer document * Chino Herrera 07/31/241749: History of Present Illness HPI Chief complaint: Generalized weakness and confusion. PCP: PCP: DOES_NOT KNOW HPI: An 83-year-old female patient with cardiovascular risk factors due to age and a sedentary lifestyle, with a history of hypertension managed with Losartan- Hydrochlorothiazide 50/12.5 mg once daily and Amlodipine 10 mg. She has a history of chronic ischemic heart disease due to an ischemic event three years ago, currently managed with Atorvastatin and mononitrate isosorbide, and a nuclear stress test performed a week ago with results still pending. Additionally, she has anxiety-depressive disorder and dementia, managed with escitalopram and lorazepam, and a history of breast cancer that required a mastectomy two years ago with chemotherapy, although the duration of treatment is unspecified. She also had a carotid endarterectomy for significant right carotid artery disease, and a surgical history of left knee arthroplasty. The family and the patient describe the current illness as beginning today, characterized by generalized weakness that limited her functional capacity. Family members report that she was unable to stand while walking. She also reports an episode of diarrheal evacuations but does not specify the quantity and duration. Concurrently, they noticed a deterioration in her orientation and ability to perform her daily tasks, prompting her to be brought to this facility. Upon arrival, her vital signs were stable: blood pressure 120/86, heart rate 81, temperature 98.4 F, oxygen saturation 95% on room air, and respiratory rate 18 breaths per minute. The patient is currently disoriented but responds when called, is alert, and reports episodes of chest discomfort with a mildly tender abdomen upon palpation in both flanks and the suprapubic region. Laboratory results show a hemoglobin level of 12.6, segmented neutrophils at 93.1%, platelets at 183, sodium at 132, potassium at 4.6, chloride at 104, bicarbonate at 21, BUN at 25, creatinine at 1.79 with an initial estimated glomerular filtration rate of 27.6, initial glucose at 282, and an initial lactic acid level of 2.5. The urinalysis is markedly pathological, and albumin is low at 3.0. Given these findings, admission is planned in the context of a suspected urinary tract infection of urinary origin, etiology under study. Samples are taken for culture and urinalysis, and the patient is admitted for antibiotic therapy while awaiting results, as well as cardiovascular monitoring including cardiac enzymes and electrocardiographic monitoring, in view of chronic changes indicated by the presence of pathological Q waves in leads II and III with a slight persistent elevation of the ST segment in those leads, probably related to a previous ischemic event. History Additional medical history: Hypertension, hyperlipidemia, diabetes, diabetic neuropathy Past surgical history: Reports: Cholecystectomy, Knee procedure. Additional surgical history: Bilateral cataract surgery Additional family history: Noncontributory Alcohol use: Denies EtOH use Drug use: Denies recreational drugs Smoking status for patients 13 years old or older: Never Smoker Additional social history: Has good family support. She lives at home with daughter Medication/Allergy-Vaccine Hx Allergies: Coded Allergies: sulfamethoxazole (From BACTRIM) (Severe, DIARRHEA 05/23/23) trimethoprim (From BACTRIM) (Severe, DIARRHEA 05/23/23) Objective General VS/I O: Vital Signs: Date Time Temp Pulse Resp B/P B/P Pulse O2 O2 Flow FiO2 Mean Ox Delivery Rate 07/31 1550 98.4 81 18 121/56 77 95 Room air 07/31 1444 98.0 88 16 120/86 97 98 Room air 0 PATIENT WEIGHT: Weight (lb): Weight (oz): Weight (kg): 59.091 Physical Exam General appearance: confused, awake, no respiratory distress Cardiovascular: normal capillary refill, regular rate rhythm, no gallop Respiratory: aerating well, no distress Abdomen: tenderness, soft, no distention, no guarding, no rebound Genitourinary: no urinary catheter Extremities: moves all, no cyanosis, no edema Neuro/ADOBE CQ DEVELOPER: abnormal speech, disoriented, alert, no motor deficits Results Findings/Data: Laboratory Tests 07/31 1730 Blood Gas Puncture Site R RADIAL ABG pH (7.35 - 7.45) 7.383 ABG pCO2 (35 - 55 mmHg) 35.30 ABG pO2 (80 - 100 mmHg) 75.80 L ABG PO2/FiO2 Ratio (mm/Hg) 360.00 ABG HCO3 (22 - 26 meq/L) 21.30 L ABG Base Excess (-2.0 - +2.0) -4.10 L Aline Test POSITIVE Hgb O2 Saturation (94 - 98 %) 93.6 L Carboxyhemoglobin (0.0 - 3.0 %) 1.30 Methemoglobin (0.0 - 3.0 %) 1.10 Temperature (C) 37 Vent Mode ROOM AIR FiO2 (%) 21.00 Laboratory Tests 07/31 07/31 07/31 07/31 1709 1709 1612 1455 Chemistry Sodium (136 - 145 mmol/L) 132 L 130 L Potassium (3.5 - 5.1 mmol/L) 4.6 5.0 Chloride (98 - 107 mmol/L) 104 103 Carbon Dioxide (21 - 32 mmol/L) 21 19 L BUN (7 - 18 mg/dL) 25 H 25 H Creatinine (0.51 - 0.95 mg/dL) 1.53 H 1.79 H Estimated GFR (MDRD) (>=60) 33.35 L 27.62 L Glucose (70 - 100 mg/dL) 183 H 282 H Lactic Acid (0.4 - 2.0 mmol/l) 1.8 2.5 H Calcium (8.5 - 10.1 mg/dL) 8.2 L 8.5 Total Bilirubin (0.2 - 1.0 mg/dl) 0.5 0.6 AST (15 - 37 U/L) 15 22 ALT (12 - 78 U/L) 23 27 Alkaline Phosphatase (50 - 136 U/L) 70 73 Troponin I High Sens (<=3.0 pg/ml) 13 Total Protein (6.4 - 8.2 g/dl) 5.7 L 6.3 L Albumin (3.4 - 5.0 g/dl) 3.0 L 3.2 L Lipase (13 - 75 U/L) 27 Laboratory Tests 07/31 1455 Hematology WBC (4.5 - 11.0 X10(3)) 12.6 H RBC (4.2 - 5.4 X10(6)) 3.35 L Hgb (12.5 - 16.0 g/dL) 10.2 L Hct (37.0 - 47.0 %) 31.1 L MCV (78 - 100 fl) 92.8 MCH (26.0 - 34.0 pg) 30.4 MCHC (30.0 - 37.0 g/dl) 32.8 RDW (11.5 - 14.5 %) 13.0 Plt Count (150 - 400 X10(3)) 183 MPV (8.7 - 11.4 fl) 10.7 Neut % (Auto) (36.0 - 66.0 %) 93.1 H Lymph % (Auto) (16.0 - 50.0 %) 3.1 L Donley % (Auto) (0.0 - 13.0 %) 3.2 Eos % (Auto) (0.0 - 4.5 %) 0.0 Baso % (Auto) (0.0 - 1.5 %) 0.2 Immature Gran # (Auto) (0.00 - 0.03 X10(3)uL) 0.05 H Absolute Neuts (auto) (1.70 - 7.70 X10(3)) 11.70 H Absolute Lymphs (auto) (0.70 - 4.00 X10(3)) 0.39 L Absolute Monos (auto) (0.00 - 0.89 X10(3)) 0.40 Absolute Eos (auto) (0.00 - 0.60 X10(3)) 0.00 Absolute Basos (auto) (0.00 - 0.20 X10(3)) 0.03 Absolute Nucleated RBC (0.0 - 0.1 K/mm3) 0.00 Immature Gran % (0.0 - 2.0 %) 0.4 Nucleated RBC % (0 - 0.2 %) 0.0 RBC Morphology (NORMAL) NO Laboratory Tests 07/31 1523 Toxicology Ketones (NEGATIVE mg/dl) NEGATIVE Laboratory Tests 07/31 1523 Urines Urine Color (YELLOW) YELLOW Urine Appearance (CLEAR) TURBID Urine pH (4.6 - 8.0) 5.5 Ur Specific [place] 1.017 Urine Protein (NEGATIVE mg/dl) 70 Urine Glucose (UA) (NORMAL mg/dl) NORMAL Urine Blood (NEGATIVE /UL) TRACE H Urine Nitrite (NEGATIVE) NEGATIVE Urine Bilirubin (NEGATIVE mg/dl) NEGATIVE Urine Urobilinogen (NORMAL mg/dl) NORMAL Ur Leukocyte Esterase (NEGATIVE /UL) 500 H Urine RBC (0 - 5 #/hpf) 0-2 Urine WBC (0 - 5 #/hpf) >100 H Urine WBC Clumps (NONE /HPF) 2+ H Urine Bacteria (NEGATIVE /hpf) 3+ H Urine Mucus (NEG,FEW /hpf) FEW Urine Comment STRAIGHT CATH Radiology data: Recent Impressions: RADIOLOGY - XR CHEST 1 V 07/31 1542 Report Impression - Status: SIGNED Entered: 07/31/2024 1612 Impression: Large frontal density over the left midlung zone/breast, with postsurgical changes of the axilla or chest wall. 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 Please correlate with surgical history to ensure this is not a mass. No acute findings of the chest. Impression By: Damian Sawant MD Diagnosis, Assessment Plan Problem List/A P: 1. UTI (urinary tract infection) 2. Weakness 3. Encephalopathy Free Text DxA P Notes Free Text DxA P Notes: Acute problems: Urinary Tract Infection (UTI) without Hematuria Metabolic Acidosis Lactic Acidosis (Non-Septic) Dehidration Chronic Kidney Disease Stage 3 with Superimposed Acute Kidney Injury Chronic Ischemic Heart Disease with Previous Myocardial Infarction Hyperglicemia with no history of diabetes. Essential Hypertension Electrolyte Disorders History of Breast Cancer, Status Post Mastectomy History of Anxiety-Depressive Disorder and Dementia Acute abnormal physiologies: Mild Normocytic Anemia (10.2), POA, likely related to chronic diseases. Hyponatremia (132), POA Hypocalcemia (8.2), POA. Hyperglicemia (282), POA. Lactic Acidosis (2.5), POA. Chronic problems: Chronic Kidney Disease Stage 3 Chronic Ischemic Heart Disease with Previous Myocardial Infarction Essential Hypertension Normocytic Anemia History of Breast Cancer, Status Post Mastectomy History of Anxiety-Depressive Disorder and Dementia ASSESSMENT AND PLAN: Urinary Tract Infection (UTI) without Hematuria: she presents with generalized weakness, disorientation, and recent diarrhea episode. Urinalysis indicates a UTI. Laboratory findings also show leukocytosis and acute kidney injury. - Admit for inpatient management and start empirical intravenous antibiotics with Ceftriaxone. - Urine culture and sensitivity to tailor antibiotic therapy. - Monitoring renal function and electrolyte balance Metabolic Acidosis: she presents with metabolic acidosis, as indicated by elevated lactate levels (2.58 mmol/L) and an anion gap, likely secondary to reduced perfusion from chronic kidney disease or dehydration. Plan: - Monitor blood gases and bicarbonate levels - Start intravenous fluids w/LR to improve renal perfusion and correct dehydration. Lactic Acidosis (Non-Septic) she has elevated lactate level (2.58 mmol/L) likely due to chronic kidney disease and reduced perfusion rather than sepsis. - Continue monitoring lactate levels to assess response to therapy. - Maintain IV fluids and monitor renal function to optimize perfusion. Dehydration: she shows signs of dehydration, which may be contributing to metabolic acidosis and acute kidney injury. - C/intravenous fluids to rehydrate and restore electrolyte balance. - Monitor fluid status and adjust infusion rates based on clinical response and renal function. - Reassess hydration status. Chronic Kidney Disease Stage 3 with Superimposed Acute Kidney Injury: she has a history of CKD and presents with an elevated creatinine level (1.79 mg/dL), indicating superimposed DARIUS. The DARIUS is likely related to dehydration and infection. - Monitor renal function with daily creatinine and BUN levels. - Continue IV fluids cautiously to prevent overload, especially considering cardiac history. Chronic Ischemic Heart Disease with Previous Myocardial Infarction: she has a history of ischemic heart disease with ECG findings indicating chronic changes from a prior ischemic event. Pending results of a recent nuclear stress test. - Continue current cardiac medications (atorvastatin, aspirin). - Monitor cardiac enzymes to rule out acute myocardial infarction. - Continuous ECG monitoring for any new ischemic changes. - Consult cardiology for further management recommendations. Essential Hypertension: stable at 120/86 mmHg on the current regimen. - Continue current antihypertensive medications (Losartan-Hydrochlorothiazide and Amlodipine). - - Monitor blood pressure. Electrolyte Disorders: she has hyponatremia (Sodium 132 mEq/L). - Monitor electrolyte blood levels. History of Breast Cancer, Status Post Mastectomy: she had a right mastectomy and chemotherapy two years ago. - Follow-up with oncology as outpatient. Anxiety-Depressive Disorder and Dementia: managed with escitalopram and lorazepam. - Continue current psychiatric medications. - Monitor mental status closely due to current disorientation. I have seen, examined, and discussed management plan with my attending Dr. Garcia. Chino Gomez MD For any questions after 6 PM to 6 AM please call the [facility] hospitalist on-call. Ronald Ochoa 08/01/24 1115: Attestations Physician Attestation Agree w/findings plan: I have personally reviewed charting, assessment, and plan. At least 50% of the encounter including physical exam was performed by me. I agree with what is documented by the resident. at 1839 at 1116 [facility] #:[id number] END OF [id number] 16:31:00 [facility] ([facility]) EMERGENCY PROVIDER REPORT REPORT#:[id number] REPORT STATUS: Signed DATE:07/31/24 TIME: 1631 PATIENT: NITA MAN UNIT #: [id number] ROOM/BED: [place] [id number] : [birth year] AGE: 83 SEX: F PCP PHYS: DOES_NOT KNOW SERVICE AUTHOR: Zen Garcia Jr, MD REP SRV REP SRV TM: 1631 * ALL edits or amendments must be made on the electronic/computer document * HPI-General Illness Free Text HPI Notes Free Text HPI Notes Patient presents with concerns for generalized weakness and family says she is not acting like herself. No fever no chills no nausea no vomiting no diarrhea. Had an episode of chest pain has some abdominal pain has not generalized aches. Symptoms started earlier today. Reports dysuria. Review of Systems Constitutional Denies: Chills, Fatigue, Fever. Ears/Nose/Throat Denies: Nasal congestion, Sore throat, Throat pain. Respiratory Denies: Cough, non-productive, Cough, productive, Shortness of breath, Wheezing. Cardiovascular Denies: Chest pain, Dyspnea on exertion, Palpitations. GI Denies: Abdominal pain, Diarrhea, Nausea, Vomiting. Female Denies: Dysuria, Flank pain, Hematuria, , Vaginal bleeding - abnl, Vaginal discharge. Musculoskeletal Denies: Back pain, Lumbar pain, Myalgia. Skin Denies: Contusion, Diaphoresis, Jaundice, Rash. Neurologic Reports:Generalized weakness, not acting like yourself Denies: Confusion, Dizziness, Focal weakness, , Headache, Lightheaded, Numbness. Physical Exam General/Const General/Const Awake, Alert, No acute distress, Well appearing, Well developed , Cooperative, Not toxic appearing MS Head Head Atraumatic, Normocephalic Eyes Eyes Atraumatic, PERRL, EOMI Ears/Nose/Throat Ears/Nose/Throat Atraumatic, Airway patent, Mucous membranes moist MS Neck Neck Atraumatic, Supple, No meningismus Resp/Chest Respiratory/Chest Atraumatic, No respiratory distress, No retractions Cardiovascular Cardiovascular Heart rate NL, Cap refill not delayed, Peripheral circulation NL Abdomen/GI Abdomen/GI Atraumatic, Soft, Non-tender MS Back Back Atraumatic, Inspection NL, Full range of motion Skin Skin Atraumatic, Color NL, No rash Neurologic Neurologic Oriented X3, Speech NL, No motor deficits, generalized weakness General Initial Greet Date/Time 07/31/24 1437 Presentation Chief Complaint Not feeling well Past Medical History - Adult Stated Complaint CHEST PAIN Allergies Coded Allergies: sulfamethoxazole (From BACTRIM) (Severe, DIARRHEA 05/23/23) trimethoprim (From BACTRIM) (Severe, DIARRHEA 05/23/23) Home Medications Reported Medications traZODone (DESYREL) 50 MG PO BEDTIME PANTOPRAZOLE DR (PROTONIX) risperiDONE 1 MG PO DAILY PREGABALIN (LYRICA) 75 MG PO BID MONTELUKAST (SINGULAIR) 10 MG PO DAILY ISOSORBIDE MONONITRATE SR (IMDUR) 60 MG PO DAILY ATORVASTATIN (LIPITOR) 20 MG PO DAILY LOSARTAN/HCTZ (HYZAAR 50/12.5 MG) 1 TAB PO DAILY amLODIPine (NORVASC) 10 MG PO DAILY SERTRALINE (ZOLOFT) 25 MG PO DAILY Calculated Suicide Risk (nurs) No risk Additional Medical History Hypertension, hyperlipidemia, diabetes, diabetic neuropathy Past Surgical History: Reports: Cholecystectomy, Knee procedure. Additional Surgical History Bilateral cataract surgery Additional Family History Noncontributory Alcohol Use Denies EtOH use Drug Use Denies recreational drugs Smoking status for patients 13 years old or older: Never Smoker Additional Social History Has good family support. She lives at home with daughter Physical Exam Vital Signs Vital Signs First Documented: Result Date Time Pulse Ox 98 07/31 1444 B/P 120/86 07/31 1444 B/P Mean 97 07/31 1444 O2 Delivery Room air 07/31 1444 O2 Flow Rate 0 07/31 1444 Temp 36.7 07/31 1444 Pulse 88 07/31 1444 Resp 16 07/31 1444 Last Documented: Result Date Time Pulse Ox 95 07/31 1550 B/P 121/56 08/30 1550 B/P Mean 77 07/31 1550 O2 Delivery Room air 07/31 1550 Temp 36.9 07/31 155 Pulse 81 07/31 1550 Resp 18 07/31 1550 O2 Flow Rate 0 07/31 1444 Review of Vital Signs Reviewed, Vital signs normal Interpretation Diagnostics Lab Results Interpretation Results Laboratory Tests 07/31/24 1455: [Embedded Image Not Available] Laboratory Tests: 07/31 07/31 1612 1523 Chemistry Lactic Acid (0.4 - 2.0 mmol/l) 2.5 H Toxicology Ketones (NEGATIVE mg/dl) NEGATIVE Urines Urine Color (YELLOW) YELLOW A Urine Appearance (CLEAR) TURBID Urine pH (4.6 - 8.0) 5.5 Ur Specific [place] 1.017 Urine Protein (NEGATIVE mg/dl) 70 Urine Glucose (UA) (NORMAL mg/dl) NORMAL Urine Blood (NEGATIVE /UL) TRACE H Urine Nitrite (NEGATIVE) NEGATIVE Urine Bilirubin (NEGATIVE mg/dl) NEGATIVE Urine Urobilinogen (NORMAL mg/dl) NORMAL Ur Leukocyte Esterase (NEGATIVE /UL) 500 H Urine RBC (0 - 5 #/hpf) 0-2 Urine WBC (0 - 5 #/hpf) >100 H Urine WBC Clumps (NONE /HPF) 2+ H Urine Bacteria (NEGATIVE /hpf) 3+ H Urine Mucus (NEG,FEW /hpf) FEW Urine Comment STRAIGHT CATH A 07/31 1455 Chemistry Sodium (136 - 145 mmol/L) 130 L Potassium (3.5 - 5.1 mmol/L) 5.0 Chloride (98 - 107 mmol/L) 103 Carbon Dioxide (21 - 32 mmol/L) 19 L BUN (7 - 18 mg/dL) 25 H Creatinine (0.51 - 0.95 mg/dL) 1.79 H Estimated GFR (MDRD) (>=60) 27.62 L Glucose (70 - 100 mg/dL) 282 H Calcium (8.5 - 10.1 mg/dL) 8.5 Total Bilirubin (0.2 - 1.0 mg/dl) 0.6 AST (15 - 37 U/L) 22 ALT (12 - 78 U/L) 27 Alkaline Phosphatase (50 - 136 U/L) 73 Troponin I High Sens (<=3.0 pg/ml) 13 Total Protein (6.4 - 8.2 g/dl) 6.3 L Albumin (3.4 - 5.0 g/dl) 3.2 L Lipase (13 - 75 U/L) 27 Hematology WBC (4.5 - 11.0 X10(3)) 12.6 H RBC (4.2 - 5.4 X10(6)) 3.35 L Hgb (12.5 - 16.0 g/dL) 10.2 L Hct (37.0 - 47.0 %) 31.1 L MCV (78 - 100 fl) 92.8 MCH (26.0 - 34.0 pg) 30.4 MCHC (30.0 - 37.0 g/dl) 32.8 RDW (11.5 - 14.5 %) 13.0 Plt Count (150 - 400 X10(3)) 183 MPV (8.7 - 11.4 fl) 10.7 Neut % (Auto) (36.0 - 66.0 %) 93.1 H Lymph % (Auto) (16.0 - 50.0 %) 3.1 L Donley % (Auto) (0.0 - 13.0 %) 3.2 Eos % (Auto) (0.0 - 4.5 %) 0.0 Baso % (Auto) (0.0 - 1.5 %) 0.2 Immature Gran # (Auto) (0.00 - 0.03 X10(3)uL) 0.05 H Absolute Neuts (auto) (1.70 - 7.70 X10(3)) 11.70 H Absolute Lymphs (auto) (0.70 - 4.00 X10(3)) 0.39 L Absolute Monos (auto) (0.00 - 0.89 X10(3)) 0.40 Absolute Eos (auto) (0.00 - 0.60 X10(3)) 0.00 Absolute Basos (auto) (0.00 - 0.20 X10(3)) 0.03 Absolute Nucleated RBC (0.0 - 0.1 K/mm3) 0.00 Immature Gran % (0.0 - 2.0 %) 0.4 Nucleated RBC % (0 - 0.2 %) 0.0 RBC Morphology (NORMAL) NO Microbiology: Date/Time Procedure - Status Source Growth 07/31 1604 Blood Culture - ORD BLOOD 08/30 1604 Blood Culture - ORD BLOOD 07/31 1554 Urine Culture - RECD URINE Recent Impressions: RADIOLOGY - XR CHEST 1 V 07/31 1542 Report Impression - Status: SIGNED Entered: 07/31/2024 1612 Impression: Large frontal density over the left midlung zone/breast, with postsurgical changes of the axilla or chest wall. 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 Please correlate with surgical history to ensure this is not a mass. No acute findings of the chest. Impression By: Damian Sawant MD ECG #1 Interpretation ECG Documented in MUSE Yes Date 07/31/24 Time 1443 Interpreted by and reviewed by me, Independently interpreted, ED physician NL ECG Interpretation Normal rate, Normal sinus rhythm, No acute ischemic changes, No STEMI Rate 87 ECG Q-T-ST - KS Non-specific ST changes Re-Evaluation MDM Free Text MDM Notes Free Text MDM Notes Considered UTI versus electrolyte disturbance versus pneumonia versus arrhythmia versus anemia. On arrival patient nontoxic-appearing but on exam patient has soft nontender nondistended abdomen. No acute cardiopulmonary normalities. She is generally weak with no focal neurologic deficit. EKG without STEMI ischemia rhythm. Labs leukocytosis. UA with evidence of UTI. Patient provided with Rocephin. They understand her reasons for admission and agree with plan. ED Course Medication(s) Ordered Medication(s) Ordered: Anti-Infective Agents Sig/Austyn Start time Last Medication Dose Route Stop Time Status Admin Ceftriaxone Sodium 1,000 MG X1ED STA 07/31 1603 DC 07/31 Sodium Chloride 10 ML IV 07/31 1605 1612 Central Nervous System Agents Sig/Austyn Start time Last Medication Dose Route Stop Time Status Admin Aspirin 324 MG X1ED STA 07/31 1444 DC / PO 07/31 1445 1503 Electrolytic, Caloric, And Ariana Sig/Austyn Start time Last Medication Dose Route Stop Time Status Admin Sodium Chloride 1,000 ML X1ED STA 07/31 1603 AC / IV 07/31 1702 1611 Sodium Chloride 1,000 ML X1ED STA 07/31 1549 CAN IV 07/31 1648 Patient Discharge Departure Vital Signs/Condition Vital Signs First Documented: Result Date Time Pulse Ox 98 07/31 1444 B/P 120/86 07/31 1444 B/P Mean 97 07/31 1444 O2 Delivery Room air 07/31 1444 O2 Flow Rate 0 07/31 1444 Temp 36.7 07/31 1444 Pulse 88 07/31 1444 Resp 16 07/31 1444 Last Documented: Result Date Time Pulse Ox 95 07/31 1550 B/P 121/56 07/31 1550 B/P Mean 77 07/31 1550 O2 Delivery Room air 07/31 1550 Temp 36.9 07/31 1550 Pulse 81 07/31 1550 Resp 18 07/31 1550 O2 Flow Rate 0 07/31 1444 All vital signs available at the time of this entry have been reviewed. Clinical Impression Clinical Impression Primary Impression: UTI (urinary tract infection) Secondary Impressions: Encephalopathy, Weakness Disposition Decision Hospitalize Hosp Physician Name Ronald Ochoa MD [facility] Physician Hospitalist Request Time 1633 Request Date 07/31/24 )( Accepts Hospitalization Yes )( Reason for Hospitalization encephalopathy, uti )( Accepted Time 1633 )( Accepted Date 07/31/24 Call Information will see patient, agrees with eval, agrees with plan at 1703 RPT #:[id number] END OF [id number] 12:46:29* Zane Mari, [facility] - 07/27/2024 12:20 PM CDT CHIEF COMPLAINT: INGROWN NAIL, RIGHT HALLUX - resolved 07/27/2024 [facility] HISTORY OF PRESENT ILLNESS: Patient returns for routine pedal evaluation, states possible ingrown nail, right hallux Patient denies pain, infection, injury, open wounds Patient states pain currently rated 0/10 on palpation, diffuse right hallux nail --- Patient returns for routine pedal evaluation in hopes to avoid complications in the lower extremity due to multiple high risk comorbidities Patient states nails are painful, thick, and elongated. Patient denies other pain, infection, injury, wounds Patient states most recent fasting blood sugar was tested this morning with a value of 120 mg/dl. PHYSICAL EXAM OF THE LOWER EXTREMITY: Vascular: (+) 1/4 pitting edema symmetrical to bilateral lower extremity, (-) ecchymosis, (-) erythema 2/4 Dorsal pedis pulse, bilateral 2/4 Posterior tibial pulse, bilateral (+) normal Capillary Refill time (+) varicosities, (-) pedal hair growth Neurological: (+) mixed sensation with 5.07 [place] Micah monofilament examination to the most distal lower extremity (+) normal response to hot, cold, sharp, blunted and vibratory sensations. (-) clonus present. Dermatological: (-) Ingrown nail (+) Nails are thick, yellow, elongated. Debrided without complications (-) signs of soft tissue infection, (-) open wounds, (-) macerations (-) abscess (-) ischemic tissue (+) normal temperature when compared to contralateral limb (+) normal color, tugor, and elasticity. Musculoskeletal: (-) pain on palpation, right hallux nail (-) pain on palpation through the lower extremity (+) Semi-rigid hammertoe deformities, BILATERAL (-) other gross osseous abnormalities 5/5 muscle strength to extrinsic pedal muscle groups (-) evidence of compartment syndrome, (-) evidence of deep vein thrombosis Pathology right foot hallux digit nail biopsy 09/16/2023: (-) fungal elements. 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 TREATMENT PLAN: - Extensive office visit WITH DAUGHTER discussing possible pedal complications associated with co-morbidities - INGROWN NAIL - resolved, no further treatment indicated - Nails - debrided without complications - nail biopsy -biopsy site is resolved therefore no bandage indicated, since no fungal elements seen no medication indicated, may use topical antifungal as needed for prevention - Medication - moisturize feet daily to help prevent ulcerations and xerosis - Vascular - no further intervention indicated palpable pedal pulses, no open wounds, no ischemic tissue. - Edema - compression stockings advised - Shoes - patient educated to obtain diabetic shoes, custom molded inserts - Diabetic management - spent significant time discussing and educating patient about appropriate diabetic management and care for the lower extremity. Patient also advised to follow-up with detailed regimen with PCP - Return 12 weeks for routine pedal eval Patient advised to report to my clinic or the emergency room immediately with any questions or concerns. Patient Instructions: Discussion: A detailed discussion was provided to the patient with specific reference to etiology, pathology, alternate treatment options, and prognosis. All risks and complications (including side effects) with each treatment/medication alternative were outlined in detail including but not limited to: Pain, swelling, numbness,loss of function, loss of limb, bleeding, hematoma, scarring, failure to relieve condition, surgery, additional/revisional surgery, reflex sympathetic dystrophy, complex regional pain syndrome, reoccurrence of deformity, joint stiffness, flail toe, bone and/or soft tissue infection, blood clots, pulmonary embolism, possible ,delayed or non-healing. X-rays, graphs and drawings were all used to assist with patient comprehension when appropriate. All patients questions were answered and stated they fully understood. No guarantee as to results or outcome of treatment was made. I have discussed with the patient or legally responsible person prior to obtaining consent: the risks, potential benefits and drawbacks, significant alternatives, potential for problems related to recuperation, likelihood of success, and possible results of non-treatment, and the patient or the legally responsible person has agreed to proceed. [facility]2024-08-26 12:46:29Upcoming Encounters Health Maintenance Due Date Last Done Comments Medicare Annual Wellness (AWV) 1940 Pneumococcal Vaccine: 65+ Ye ars (1 of 2 - PCV) 1945 Diabetes: Foot Exam 1949 Diabetes: Retinopathy Screening 1949 DTaP/Tdap/Td Vaccines (1 - Tdap) 1958 Zoster Vaccines (1 of 2) 1989 Respiratory Syncytial Virus (RSV) or >=60 (1 - 1-dose 60+ series) 1999 Diabetes: Hemoglobin A1C 01/20/2022 10/20/2021 Diabetes: Urine Protein Screening 07/21/2022 021 Lipid Panel 07/21/2022 07/21/2021 Influenza Vaccine (#1) 2024 HIB Vaccines Aged Out No longer eligi ble based on patient's age to complete this topic HPV Vaccines Aged Out No longer eligi ble based on patient's age to complete this topic Hepatitis A Vaccines Aged Out No long er eligible based on patient's age to complete this topic Hepatitis B Vaccines Aged Out No long er eligible based on patient's age to complete this topic IPV Vaccines Aged Out No longer eligi ble based on patient's age to complete this topic Meningococcal Vaccine Aged Out No racquel marychuy eligible based on patient's age to complete this topic Rotavirus Vaccines Aged Out No longer eligible based on patient's age to complete this topic [facility]i1585[facility]52-40 12:46:29 Diagnosis Abnormal foot finding - Prim celina [facility]Qowjrng9799-58-78 12:46:29 [place] [id number] 12:46:29* Zane Mari, BRIANNA - 07/27/2024 12:20 PM CDT CHIEF COMPLAINT: INGROWN NAIL, RIGHT HALLUX - resolved 07/27/2024 [facility] HISTORY OF PRESENT ILLNESS: Patient returns for routine pedal evaluation, states possible ingrown nail, right hallux Patient denies pain, infection, injury, open wounds Patient states pain currently rated 0/10 on palpation, diffuse right hallux nail --- Patient returns for routine pedal evaluation in hopes to avoid complications in the lower extremity due to multiple high risk comorbidities Patient states nails are painful, thick, and elongated. Patient denies other pain, infection, injury, wounds Patient states most recent fasting blood sugar was tested this morning with a value of 120 mg/dl. PHYSICAL EXAM OF THE LOWER EXTREMITY: Vascular: (+) 1/4 pitting edema symmetrical to bilateral lower extremity, (-) ecchymosis, (-) erythema 2/4 Dorsal pedis pulse, bilateral 2/4 Posterior tibial pulse, bilateral (+) normal Capillary Refill time (+) varicosities, (-) pedal hair growth Neurological: (+) mixed sensation with 5.07 [place] Micah monofilament examination to the most distal lower extremity (+) normal response to hot, cold, sharp, blunted and vibratory sensations. (-) clonus present. Dermatological: (-) Ingrown nail (+) Nails are thick, yellow, elongated. Debrided without complications (-) signs of soft tissue infection, (-) open wounds, (-) macerations (-) abscess (-) ischemic tissue (+) normal temperature when compared to contralateral limb (+) normal color, tugor, and elasticity. Musculoskeletal: (-) pain on palpation, right hallux nail (-) pain on palpation through the lower extremity (+) Semi-rigid hammertoe deformities, BILATERAL (-) other gross osseous abnormalities 5/5 muscle strength to extrinsic pedal muscle groups (-) evidence of compartment syndrome, (-) evidence of deep vein thrombosis Pathology right foot hallux digit nail biopsy 09/16/2023: (-) fungal elements. 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 TREATMENT PLAN: - Extensive office visit WITH DAUGHTER discussing possible pedal complications associated with co-morbidities - INGROWN NAIL - resolved, no further treatment indicated - Nails - debrided without complications - nail biopsy -biopsy site is resolved therefore no bandage indicated, since no fungal elements seen no medication indicated, may use topical antifungal as needed for prevention - Medication - moisturize feet daily to help prevent ulcerations and xerosis - Vascular - no further intervention indicated palpable pedal pulses, no open wounds, no ischemic tissue. - Edema - compression stockings advised - Shoes - patient educated to obtain diabetic shoes, custom molded inserts - Diabetic management - spent significant time discussing and educating patient about appropriate diabetic management and care for the lower extremity. Patient also advised to follow-up with detailed regimen with PCP - Return 12 weeks for routine pedal eval Patient advised to report to my clinic or the emergency room immediately with any questions or concerns. Patient Instructions: Discussion: A detailed discussion was provided to the patient with specific reference to etiology, pathology, alternate treatment options, and prognosis. All risks and complications (including side effects) with each treatment/medication alternative were outlined in detail including but not limited to: Pain, swelling, numbness,loss of function, loss of limb, bleeding, hematoma, scarring, failure to relieve condition, surgery, additional/revisional surgery, reflex sympathetic dystrophy, complex regional pain syndrome, reoccurrence of deformity, joint stiffness, flail toe, bone and/or soft tissue infection, blood clots, pulmonary embolism, possible ,delayed or non-healing. X-rays, graphs and drawings were all used to assist with patient comprehension when appropriate. All patients questions were answered and stated they fully understood. No guarantee as to results or outcome of treatment was made. I have discussed with the patient or legally responsible person prior to obtaining consent: the risks, potential benefits and drawbacks, significant alternatives, potential for problems related to recuperation, likelihood of success, and possible results of non-treatment, and the patient or the legally responsible person has agreed to proceed. [facility]ofhriw6060-01-75 12:46:29Upcoming Encounters Health Maintenance Due Date Last Done Comments Medicare Annual Wellness (AWV) 1940 Pneumococcal Vaccine: 65+ Ye ars (1 of 2 - PCV) 1945 Diabetes: Foot Exam 1949 Diabetes: Retinopathy Screening 1949 DTaP/Tdap/Td Vaccines (1 - Tdap) 1958 Zoster Vaccines (1 of 2) 1989 Respiratory Syncytial Virus (RSV) or >=60 (1 - 1-dose 60+ series) 1999 Diabetes: Hemoglobin A1C 01/20/2022 10/20/2021 Diabetes: Urine Protein Screening 07/21/2022 021 Lipid Panel 07/21/2022 07/21/2021 Influenza Vaccine (#1) 2024 HIB Vaccines Aged Out No longer eligi ble based on patient's age to complete this topic HPV Vaccines Aged Out No longer eligi ble based on patient's age to complete this topic Hepatitis A Vaccines Aged Out No long er eligible based on patient's age to complete this topic Hepatitis B Vaccines Aged Out No long er eligible based on patient's age to complete this topic IPV Vaccines Aged Out No longer eligi ble based on patient's age to complete this topic Meningococcal Vaccine Aged Out No racquel marychuy eligible based on patient's age to complete this topic Rotavirus Vaccines Aged Out No longer eligible based on patient's age to complete this topic [facility] HospitalBbgajve0034-29-60 12:46:29 Diagnosis Abnormal foot finding - Prachi patrick [facility] HospitalWjcogvy2025-56-02 12:46:29 [facility] HospitalFtezevg7922-70-71 13:05:10* Zane Mari, SOL - 07/20/2024 11:50 AM CDT CHIEF COMPLAINT: INGROWN NAIL, RIGHT HALLUX [facility] HISTORY OF PRESENT ILLNESS: Patient returns for routine pedal evaluation, states possible ingrown nail, right hallux Patient denies infection, injury, open wounds Patient states pain currently rated 4/10 on palpation, diffuse right hallux nail --- Patient returns for routine pedal evaluation in hopes to avoid complications in the lower extremity due to multiple high risk comorbidities Patient states nails are painful, thick, and elongated. Patient denies other pain, infection, injury, wounds Patient states most recent fasting blood sugar was tested this morning with a value of 120 mg/dl. PHYSICAL EXAM OF THE LOWER EXTREMITY: Vascular: (+) 1/4 pitting edema symmetrical to bilateral lower extremity, (-) ecchymosis, (-) erythema 2/4 Dorsal pedis pulse, bilateral 2/4 Posterior tibial pulse, bilateral (+) normal Capillary Refill time (+) varicosities, (-) pedal hair growth Neurological: (+) mixed sensation with 5.07 [place] Micah monofilament examination to the most distal lower extremity (+) normal response to hot, cold, sharp, blunted and vibratory sensations. (-) clonus present. Dermatological: (-)Ingrown nail (+) Nails are thick, yellow, elongated. Debrided without complications (-) signs of soft tissue infection, (-) open wounds, (-) macerations (-) abscess (-) ischemic tissue (+) normal temperature when compared to contralateral limb (+) normal color, tugor, and elasticity. Musculoskeletal: (+) pain on palpation, right hallux nail (-) pain on palpation through the lower extremity (+) Semi-rigid hammertoe deformities, BILATERAL (-) other gross osseous abnormalities 5/5 muscle strength to extrinsic pedal muscle groups (-) evidence of compartment syndrome, (-) evidence of deep vein thrombosis Pathology right foot hallux digit nail biopsy 09/16/2023: (-) fungal elements. 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 TREATMENT PLAN: - Extensive office visit with daughter discussing possible pedal complications associated with co-morbidities- - INGROWN NAIL - ALTHOUGH NO ACUTE CONCERNS, WILL MONITOR CLOSELY FOR CHANGES - Nails - debrided without complications - nail biopsy -biopsy site is resolved therefore no bandage indicated, since no fungal elements seen no medication indicated, may use topical antifungal as needed for prevention - Medication - moisturize feet daily to help prevent ulcerations and xerosis - Vascular - no further intervention indicated palpable pedal pulses, no open wounds, no ischemic tissue. - Edema - compression stockings advised - Shoes - patient educated to obtain diabetic shoes, custom molded inserts - Diabetic management - spent significant time discussing and educating patient about appropriate diabetic management and care for the lower extremity. Patient also advised to follow-up with detailed regimen with PCP - Return 1 week for ingrown nail eval Patient advised to report to my clinic or the emergency room immediately with any questions or concerns. Patient Instructions: Discussion: A detailed discussion was provided to the patient with specific reference to etiology, pathology, alternate treatment options, and prognosis. All risks and complications (including side effects) with each treatment/medication alternative were outlined in detail including but not limited to: Pain, swelling, numbness,loss of function, loss of limb, bleeding, hematoma, scarring, failure to relieve condition, surgery, additional/revisional surgery, reflex sympathetic dystrophy, complex regional pain syndrome, reoccurrence of deformity, joint stiffness, flail toe, bone and/or soft tissue infection, blood clots, pulmonary embolism, possible ,delayed or non-healing. X-rays, graphs and drawings were all used to assist with patient comprehension when appropriate. All patients questions were answered and stated they fully understood. No guarantee as to results or outcome of treatment was made. I have discussed with the patient or legally responsible person prior to obtaining consent: the risks, potential benefits and drawbacks, significant alternatives, potential for problems related to recuperation, likelihood of success, and possible results of non-treatment, and the patient or the legally responsible person has agreed to proceed. [facility] HospitalEphuucd6870-03-88 13:05:10Upcoming Encounters Health Maintenance Due Date Last Done Comments Medicare Annual Wellness (AWV) 1939 Diabetes: Foot Exam 1949 Diabetes: Retinopathy Screening 1949 DTaP/Tdap/Td Vaccines (1 - Tdap) 1958 Zoster Vaccines (1 of 2) 1989 Respiratory Syncytial Virus (RSV) or >=60 (1 - 1-dose 60+ series) 1999 Pneumococcal Vaccine: 65+ Ye ars (1 of 1 - PCV) 2004 Diabetes: Hemoglobin A1C 01/20/2022 10/20/2021 Diabetes: Urine Protein Screening 07/21/2022 021 Lipid Panel 07/21/2022 07/21/2021 Influenza Vaccine (#1) 2024 HIB Vaccines Aged Out No longer eligi ble based on patient's age to complete this topic HPV Vaccines Aged Out No longer eligi ble based on patient's age to complete this topic Hepatitis A Vaccines Aged Out No long er eligible based on patient's age to complete this topic Hepatitis B Vaccines Aged Out No long er eligible based on patient's age to complete this topic IPV Vaccines Aged Out No longer eligi ble based on patient's age to complete this topic Meningococcal Vaccine Aged Out No racquel marychuy eligible based on patient's age to complete this topic Rotavirus Vaccines Aged Out No longer eligible based on patient's age to complete this topic [facility] HospitalZrfeiet5867-19-30 13:05:10 Diagnosis Abnormal foot finding - Prim celina [facility] HospitalSvsglpv0915-99-35 13:05:10 [facility] HospitalMdrcrpr9150-73-68 13:05:10* Zane Mari DPM - 07/20/2024 11:50 AM CDT CHIEF COMPLAINT: INGROWN NAIL, RIGHT HALLUX [facility] HISTORY OF PRESENT ILLNESS: Patient returns for routine pedal evaluation, states possible ingrown nail, right hallux Patient denies infection, injury, open wounds Patient states pain currently rated 4/10 on palpation, diffuse right hallux nail --- Patient returns for routine pedal evaluation in hopes to avoid complications in the lower extremity due to multiple high risk comorbidities Patient states nails are painful, thick, and elongated. Patient denies other pain, infection, injury, wounds Patient states most recent fasting blood sugar was tested this morning with a value of 120 mg/dl. PHYSICAL EXAM OF THE LOWER EXTREMITY: Vascular: (+) 1/4 pitting edema symmetrical to bilateral lower extremity, (-) ecchymosis, (-) erythema 2/4 Dorsal pedis pulse, bilateral 2/4 Posterior tibial pulse, bilateral (+) normal Capillary Refill time (+) varicosities, (-) pedal hair growth Neurological: (+) mixed sensation with 5.07 [place] Micah monofilament examination to the most distal lower extremity (+) normal response to hot, cold, sharp, blunted and vibratory sensations. (-) clonus present. Dermatological: (-)Ingrown nail (+) Nails are thick, yellow, elongated. Debrided without complications (-) signs of soft tissue infection, (-) open wounds, (-) macerations (-) abscess (-) ischemic tissue (+) normal temperature when compared to contralateral limb (+) normal color, tugor, and elasticity. Musculoskeletal: (+) pain on palpation, right hallux nail (-) pain on palpation through the lower extremity (+) Semi-rigid hammertoe deformities, BILATERAL (-) other gross osseous abnormalities 5/5 muscle strength to extrinsic pedal muscle groups (-) evidence of compartment syndrome, (-) evidence of deep vein thrombosis Pathology right foot hallux digit nail biopsy 09/16/2023: (-) fungal elements. 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 TREATMENT PLAN: - Extensive office visit with daughter discussing possible pedal complications associated with co-morbidities- - INGROWN NAIL - ALTHOUGH NO ACUTE CONCERNS, WILL MONITOR CLOSELY FOR CHANGES - Nails - debrided without complications - nail biopsy -biopsy site is resolved therefore no bandage indicated, since no fungal elements seen no medication indicated, may use topical antifungal as needed for prevention - Medication - moisturize feet daily to help prevent ulcerations and xerosis - Vascular - no further intervention indicated palpable pedal pulses, no open wounds, no ischemic tissue. - Edema - compression stockings advised - Shoes - patient educated to obtain diabetic shoes, custom molded inserts - Diabetic management - spent significant time discussing and educating patient about appropriate diabetic management and care for the lower extremity. Patient also advised to follow-up with detailed regimen with PCP - Return 1 week for ingrown nail eval Patient advised to report to my clinic or the emergency room immediately with any questions or concerns. Patient Instructions: Discussion: A detailed discussion was provided to the patient with specific reference to etiology, pathology, alternate treatment options, and prognosis. All risks and complications (including side effects) with each treatment/medication alternative were outlined in detail including but not limited to: Pain, swelling, numbness,loss of function, loss of limb, bleeding, hematoma, scarring, failure to relieve condition, surgery, additional/revisional surgery, reflex sympathetic dystrophy, complex regional pain syndrome, reoccurrence of deformity, joint stiffness, flail toe, bone and/or soft tissue infection, blood clots, pulmonary embolism, possible ,delayed or non-healing. X-rays, graphs and drawings were all used to assist with patient comprehension when appropriate. All patients questions were answered and stated they fully understood. No guarantee as to results or outcome of treatment was made. I have discussed with the patient or legally responsible person prior to obtaining consent: the risks, potential benefits and drawbacks, significant alternatives, potential for problems related to recuperation, likelihood of success, and possible results of non-treatment, and the patient or the legally responsible person has agreed to proceed. Misa [facility] HospitalRfufcmo0826-18-54 13:05:10Upcoming Encounters Health Maintenance Due Date Last Done Comments Medicare Annual Wellness (AWV) 1940 Diabetes: Foot Exam 1949 Diabetes: Retinopathy Screening 1949 DTaP/Tdap/Td Vaccines (1 - Tdap) 1958 Zoster Vaccines (1 of 2) 1989 Respiratory Syncytial Virus (RSV) or >=60 (1 - 1-dose 60+ series) 1999 Pneumococcal Vaccine: 65+ Ye ars (1 of 1 - PCV) 2004 Diabetes: Hemoglobin A1C 01/20/2022 10/20/2021 Diabetes: Urine Protein Screening 07/21/2022 021 Lipid Panel 07/21/2022 07/21/2021 Influenza Vaccine (#1) 2024 HIB Vaccines Aged Out No longer eligi ble based on patient's age to complete this topic HPV Vaccines Aged Out No longer eligi ble based on patient's age to complete this topic Hepatitis A Vaccines Aged Out No long er eligible based on patient's age to complete this topic Hepatitis B Vaccines Aged Out No long er eligible based on patient's age to complete this topic IPV Vaccines Aged Out No longer eligi ble based on patient's age to complete this topic Meningococcal Vaccine Aged Out No racquel marychuy eligible based on patient's age to complete this topic Rotavirus Vaccines Aged Out No longer eligible based on patient's age to complete this topic [facility] HospitalKzmeslv5779-68-77 13:05:10 Diagnosis Abnormal foot finding - Prim celina [facility] HospitalApgfttm0665-31-85 13:05:10 [facility] HospitalJeqfjkk6633-46-53 11:37:00 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 mass, cysto 3mon postop, likely inflammed area; Bulkamid 1.2ml Complications: none Estimated blood loss in ml's: 100 Specimens removed/altered: none Fluids: 1000 Urine output: 400 Approach: vag at 1140 RPT #: [id number] END OF REPORT [id number] 11:10:[id number] [facility] [address] [place] [id number] PATIENT NAME: NITA MAN ADMIT DATE: 06/03/23 ACCOUNT NO: [id number] ROOM NO: [facility] AGE: 82 REPORT TYPE: OPERATIVE REPORT SEX: [...] Bulkamid and cystoscopy. SURGEON: Vero Ortega MD FEEDER OPERATOR AUTOMATIC: Jaylin Matos. ANESTHESIA: General. SPECIMENS: No specimens. COMPLICATIONS: No complications. DRAINS: Bolden catheter, 14-Micronesian, no vaginal packing. FINDINGS: POP-Q 0, 0, [...] that had irregular transitional epithelium, not grossly obvious for any tumor; however, this must be followed in 3 months postop. Both ureteric orifices had strong jets of urine. No evidence of any trauma or foreign body in the bladder. INDICATIONS: The patient is an 82-year-old [...] posterior defect and mixed incontinence. She was evaluated with urodynamic testing, which showed low urethral pressure. Her bladder PATIENT NAME: NITA MAN emptying on the test was unremarkable and bladder pressures were slightly low. Capacity significantly decreased. On cystoscopy, there were signs of epithelial inflammation at the time. She was treated for [...] she was cleared by Dr. Eagle, her director emergency department. She had a carotid artery stent in [...] was placed in dorsal lithotomy position using Aline stirrups. Lower abdomen, vulva, vagina, and perineum [...] the vaginectomy in order for me to close the mix together. Once this was drawn out, [...] the bladder. Once all this was taken out, hemostasis was secured with the Bovie and then [...] anterior and posterior mix was done with [id number] 2-0 Vicryl sutures. After doing a running continuous suture of the vault and onto the right lateral wall. The left lateral wall was also closed with the help of continuous running 2-0 and then interrupted 2-0 [id number] sutures in 3 layers to close the anterior and posterior vaginal mix and to make them symmetric. Then, 5 sutures were placed, one csrgom-wk-[id number] and 3 horizontal mattress sutures in order to bring the anterior and posterior vaginal epithelial edges together. The flaps were PATIENT NAME: NITA MAN #: [id number] raised to advance the epithelial edges to take the tension off. Once the closure was done, the [place] retractor needles were removed to inspect the [...] The bladder was drained, opening up to 16-Micronesian Bolden. The Bolden was removed. Urethral bulking sheath was taken from the Bulkamid kit, attached to a pediatric cystoscope. Normal saline was attached as well. Then, after filling the bladder and visualizing the bladder and there was a slight irregularity on the epithelium close to the right UO on the trigone at the top of the trigone, the rest of the epithelium was unremarkable, no tumors, good jets of urine from both ureteric orifices. Bladder was then drained again and with a brisk flow on the cystoscope. Urethra was entered at the level of the internal meatus leaving the tip of the sheath here. The needle was advanced 2 cm into the bladder. Then, this entire system was pulled out such that I was 2 cm proximal to the internal meatus in the mid urethral area. The needle was taken and inserted at least 3/4th of a centimeter under the urethral epithelium at 04:00 o'clock, 02:00 o'clock, 10 and 7 o'clock positions and 1.2 mL of the Bulkamid agent was injected without any problems. There was good coaptation of the urethral epithelium at this level and I was satisfied with the amount of bulking. The scope was removed. The bulking agent was removed. Then, a 14-Micronesian Bolden was inserted into the bladder and left for drainage. All the instrument, needle and sponge counts [...] By: Vero Ortega MD Date Dictated: 06/03/2023 11:10:18 Date Transcribed: 06/03/2023 14:26:42 EULA/LEONIDES/TALIA/DANIELLE Receipt ID: [id number] Authenticated by Vero Ortega MD On 07/01/2023 05:32:45 PM PATIENT NAME: NITA MAN at 0532 PATIENT NAME: NITA MAN 13:12:00 [id number] [place] [address] PATIENT NAME: NITA MAN ADMIT DATE: 06/03/23 ACCOUNT NO: [id number] ROOM NO: L.PO8 AGE: 82 REPORT TYPE: eELECTROCARDIOGRAM SEX: F ADMITTING PHYSICIAN: Vero Ortega MD ATTENDING PHYSICIAN: Vero Ortega MD Order: [id number] Test Reason : PRE OP Test Date/Time Stamp: SatMay 23 2023 13:12:04 Blood Pressure : / mmHG Vent. Rate : 068 BPM Atrial Rate : 068 BPM P-R Int : 174 ms QRS Dur : 130 ms QT Int : 456 ms P-R-T Axes : 056 -24 017 degrees QTc Int : 484 ms Normal sinus rhythm Right bundle branch block Abnormal ECG When compared with ECG of 20-JUL-2022 13:55, Inverted T waves have replaced nonspecific T wave abnormality in Anterior leads Confirmed by LIZZY LOUISE ([id number]) on 06/10/2023 6:00:42 AM Referred By: Vero Ortega Confirmed by:LIZZY LOUISE at 0600 PATIENT NAME: NITA MAN 10:36:00 [facility] ([facility]) discharge summary report#:[id number] report status: signed date:07/24/22 time: 1036 patient: nita man unit #: [id number] room/bed: [place] [address] : 39 age: 81 sex: f attend: rusty ang[place] md adm dt: 07/23/22 author: julian gama naphthalene still operator * all edits or amendments must be made on the electronic/computer document * pcp pcp pcp: pcp: vikram orr v, md discharge to: home general information date of admission: observation start date: date of admission: 07/23/22 discharge date: 07/24/22 admission diagnosis: severe right carotid stenosis discharge diagnosis: severe right carotid stenosis s/p right cea hospital course: very pleasant 81-year-old female with past medical history of hypertension, hyperlipidemia, diabetes who was getting cardiac clearance for endoscopic procedure and was found to have severe right carotid stenosis on cerebral angiogram performed on 06/18/[address] eagle. she is admitted to the hospital on july 23 for right carotid endarterectomy. no postoperative complications, [...] outpatient. will discharge patient home if creatinine stable. follow-up with dr. angeles in 1 to 2 weeks consultants: critical/radar scientist, hospitalist, vascular surgery med rec pcp pcp: pcp: vikram orr v, md med rec discharge meds: continue taking these medications: risperidone (risperdal) 0.25 mg tab milligram oral daily. [...] (cozaar) 25 mg tab milligram oral daily. objective vs/i o last documented: result date time pulse ox 98 [...] urine 650 1120 patient weight: weight (lb): 163 weight (oz): 12.86 weight (kg): 73.936 general appearance: alert, oriented, pleasant, mental status normal, no respiratory distress head/eyes: atraumatic ent: moist mucosal membranes neck: non-tender cardiovascular: regular rate rhythm, normal heart sounds respiratory: clear to auscultation, aerating well, symmetric expansion gi: soft, non-tender extremities: moves all, no edema-all extremities psychiatry: normal affect, normal judgment/insight results findings/data: laboratory tests: 07/24 07/24 07/23 07/23 07/23 0400 0400 1958 1110 1108 chemistry sodium (134 - 147 meq/l) 134 [...] magnesium (1.80 - 2.40 mg/dl) 1.46 l hematology wbc (4.5 - 11.0 x10 3/ul) [...] immat gran (auto) (0.00 - 0.03 0.04 h x10 3/ul) add manual diff no immature gran % (0.0 - 2.0 %) 0.4 nucleated rbc % (0 - 0 %) 0.0 nucleated rbcs # (man) (0.0 - 0.1 0.00 x10 3/ul) radiology data: recent impressions: radiology - xr chest 1 v 07/24 620 report impression - status: signed entered: 07/24/2022826 impression: no acute abnormality in the chest. large retrocardiac hiatus hernia. impression by: mai whitaker m.d. treatments procedures lab: chemistry last 24 hrs: 07/24 07/23 0400 1110 [...] (auto) (56.0 - 77.0 %) 81.9 h imaging: recent impressions: radiology - xr chest 1 v 07/24 620 report impression - status: signed entered: 07/24/2022826 impression: no acute abnormality in the chest. large retrocardiac hiatus hernia. impression by: [email or web address] - jimena whitaker m.d. discharge instructions pcp pcp: pcp: vikram orr v, md )( discharge to: home/self care discharge instructions additional discharge routines: attending follow-up, health management consultant follow-up, wound/ dressing care )( diet: cardiac )( wound/dressing care: clean wound daily, do not submerge incision, keep wound clean and dry follow-up appointments attending physician: attending physician: rusty angeles md phone: [phone] attending physician follow up timeframe: in 1-2 weeks consulting provider 1: provider 1: bethany eagle md specialty: cardiologyinterventional phone: [phone] consult follow up timeframe: in 1-2 weeks quality: discharge advanced care plan 65 or older discussed with: patient, surrogate decis. maker electronically signed by julian gama np on 07/24/22 at 1433 electronically signed by rusty angeles md on 07/25/22 at 1857 rpt #:[id number] end of [id number] 10:13:00 [facility] ([facility]) critical care progress note report#:[id number] report status: signed date:07/24/22 time: 1013 patient: nita man unit #: [id number] room/bed: [place] [address] : 39 age: 81 sex: f attend: rusty angeles md adm dt: 07/23/22 author: riccardo kendall * all edits or amendments must be made on the electronic/computer document * subjective chief complaint: right carotid stenosis. s/p right cea hpi: ms. man is a 81-year-old female patient who was admitted to ccu after an elective right carotid endarterectomy due to severe right carotid stenosis on cerebral angiogram. she has a past medical history significant for hypertension, hyperlipidemia, diabetes, neuropathy, previous right knee surgery and cholecystectomy. she was seen and examined at the bedside, she is awake and oriented, follows commands, no headache or focal weakness, speech is fluent. reports mild muscle cramping to left lower extremity. bp 128/60, sr 62. patient reports: no: complaints. nursing reports: no: complaints. objective general vs/i o last documented: result date time pulse ox 98 [...] urine 650 1120 patient weight: weight (lb): 163 weight (oz): 12.86 weight (kg): 74.300 medications: active meds + dc'd last 24 hrs losartan potassium (cozaar) 25 mg daily po (can) montelukast sodium (montelukast sodium) 4 mg daily po (ckd) fosfomycin tromethamine (monurol) 3 g once one po (dc) sodium chloride (sodium chloride 0.9%) 1,000 ml .[id number] iv magnesium sulfate (magnesium sulfate 4gm/swfi 100ml) [...] chloride (sodium chloride 0.9% 100 ml) 100 ml dextrose/water (dextrose 50% w syringe) 25 ml asdir [...] 8.3 mg lactated ringer's (lactated ringers) 949.5 ml cefazolin sodium (kefzol or ancef) 1 gm preop oncall iv (dc) sodium chloride (sodium chloride) 10 ml acetaminophen (tylenol extra strength) 1,000 mg preop oncall [...] ml asdir prn iv (dc) post-op: day 1 status post: right cea antibiotics: day 1 nutrition assessment: the data set between the solid lines has been imported from the dietitian's assessment. any exceptions have been noted under provider comments. bmi calculated: 34.2 nutrition related diagnosis: nutrition diagnosis details: nutrition problem: nutrition etiology: nutrition signs and symptoms: nutrition prescription: dietitian name: assessment completed: provider comments on imported dietitian assessment: results findings/data: laboratory tests 07/24 07/24 07/23 07/23 07/23 0400 0400 1958 1110 1108 chemistry sodium (134 - 147 meq/l) 134 [...] 0.1 x10 3/ul) 0.00 laboratory tests 07/24/22 0400: [embedded image not available] 07/23/22 1110: [embedded image not available] microbiology: 07/23 618 nasal: mrsa dna surveillance screen - comp radiology data recent impressions: radiology - xr chest 1 v 07/24 620 report impression - status: signed entered: 07/24/2022826 impression: no acute abnormality in the chest. large retrocardiac hiatus hernia. impression by: [email or web address] - jimena whitaker m.d. free text obj notes free text obj notes: physical examination: general: up to chair, not in distress heent: nc/at, decreased vision, moist mucous membranes. right neck surgical site, dressed cv: rrr, s1/s2, no murmurs lungs: symetrical expansion, no wheezing/rales, normal work of breathing gi: obese, soft, nt/nd, bowel sounds present gu: no flank pain, voiding skin: warm, no colette, no cyanosi, r neck surgical site, c/d/i neuro: no x3, speech is fluent, no motor or sensory deficits noted psych: calm treatment prophylaxis treatment prophylaxis oxygen: room air anti-infectives: piperacillin-tazobactam ulcer prophylaxis: pantoprazole diagnosis, assessment plan free text a p: ms. man is a 81-year-old female patient who was admitted to ccu after an elective right carotid endarterectomy due to severe right carotid stenosis on cerebral angiogram. she has a past medical history significant for hypertension, hyperlipidemia, diabetes, neuropathy, previous right knee surgery and cholecystectomy. 07/24-no acute events overnight. hemodynamically stable, no fever, yumi drain was removed. problems: cva right carotid stenosis status post right cea hypertension hyperlipidemia diabetes diabetes neuropathy obesity plan: ccu status as needed pain control neurovascular checks per unit protocol neck circumferential checks aspirin/plavix per vascular statin prn hydralazine for sbp >150 bun/creatinine rising, will start gentle hydration with ns at 75ml; repeat bmp at 2 pm replete electrolytes as needed tolerating diet hemoglobin 9.9 today, monitor and transfuse if less than 7 monitor surgical site for bleeding; yumi drain removed glycemic control with iss, accu-cheks. a1c 5.5 patient was started on iv zosyn due to urine culture positive for proteus m; discussed with surgery and pharmacist; patient likely to go home today- will switch to fosfomycin 3g dvt prophylaxis: scds. home dose ppi mobilize with pt/ot dispo: home with family icc signing off. patient is a full code i spent 30 minutes of critical care reviewing labs, imaging and discussing plans of care with radar scientist, interdisciplinary team orders: procedure date/time status basic metabolic panel 07/24 1400 active ot: pocc - ot staff only 07/24 0843 active eval ot high complex 53557ml 07/24 0843 active adl 15 min 07/24 unk complete consultants: critical/radar scientist, hospitalist, vascular surgery code status: full code plan discussed with: patient, family, collaborating md, consultants, nurse, interdisc care team, pharmacy/pharmacist critical care time: minutes: 30 electronically signed by riccardo kendall on 07/24/22 at 1029 rpt #:[id number] end of [id number] 13:16:00 [facility] ([facility]) critical care consult note report#:[id number] report status: signed date:07/23/22 time: 1316 patient: nita man unit #: [id number] room/bed: [place] [address] : 39 age: 81 sex: f attend: rusty angeles md adm dt: 07/23/22 author: riccardo kendall * all edits or amendments must be made on the electronic/computer document * see addendum history of present illness hpi requesting clinician: julian gama np reason for consult: icu mgt chief complaint: right carotid stenosis. s/p right cea hpi: ms. man is a 81-year-old female patient who was admitted to ccu after an elective right carotid endarterectomy due to severe right carotid stenosis on cerebral angiogram. she has a past medical history significant for hypertension, hyperlipidemia, diabetes, neuropathy, previous right knee surgery and cholecystectomy. she was seen and examined at the bedside, she is awake and oriented, follows commands, no headache or focal weakness, speech is fluent. reports mild muscle cramping to left lower extremity. bp 128/60, sr 62. history - adult longitudinal additional medical history: hypertension, hyperlipidemia, diabetes, diabetic neuropathy past surgical history: reports: cholecystectomy, knee procedure. additional surgical history: bilateral cataract surgery additional family history: noncontributory alcohol use: denies etoh use drug use: denies recreational drugs smoking status: smoking status for patients 13 years old or older: never smoker additional social history: has good family support. she lives at home with daughter medications: home medications: medication dose/rte/freq days qty entered last [...] strength: 25 mg tab 1444 current hospital medications: anti-infective agents sig/austyn start time last medication dose route stop time status admin cefazolin sodium 0 .stk-med one 07/23 07 dc (kefzol or ancef) .route cefazolin sodium 1 gm preop oncall 07/23 0500 dc (kefzol or ancef) iv 07/23 2359 sodium chloride 10 ml (sodium chloride) autonomic drugs sig/austyn start time last medication dose route stop time status admin glycopyrrolate 0 .stk-med one 07/23 831 dc (glycopyrrolate) .route neostigmine 0 .stk-med one 07/23 831 dc methylsulfate .route (prostigmin) glycopyrrolate 0 .stk-med one 07/23 723 dc (glycopyrrolate) .route neostigmine 0 .stk-med one 07/23 723 dc methylsulfate .route (prostigmin) ephedrine sulfate 0 .stk-med one 07/23 0716 dc (ephedrine sulfate) .route phenylephrine hcl 250 ml .stk-med one 07/23 0648 dc (phenylephrine 30 mg/ iv ns 250 ml) phenylephrine hcl 0 .stk-med one 07/23 644 dc (olga-synephrine i-javier 1000mcg/ns 10ml inj) rocuronium bromide 0 .stk-med one 07/23 644 dc (zemuron) iv blood formation,coagulation sig/austyn start time last medication dose route stop time status admin protamine sulfate 0 .stk-med one 07/23 831 dc (protamine sulfate) iv heparin sodium 0 .stk-med one 07/23 644 dc (heparin sodium) .route heparin sodium 0 .stk-med one 07/23 624 dc (heparin sodium) .route thrombin 0 .stk-med one 07/23 624 dc (recothrom) topical cardiovascular drugs sig/austyn start time last medication dose route stop time status admin losartan potassium 25 mg daily 07/24 0900 ac (cozaar) po 08/23 08 atorvastatin calcium 10 mg bedtime 07/23 2100 ac (lipitor) po 08/23 0859 isosorbide 10 mg daily 07/23 1200 ac 07/23 mononitrate po 08/22 1159 1229 (isosorbide mononitrate) hydralazine hcl 5 mg pacu q10min prn prn 07/23 0900 ac (apresoline) iv 07/23 1900 labetalol hcl 5 mg pacu q10min prn prn 07/23 0900 ac (labetalol hcl) iv 07/23 1900 esmolol hcl 0 .stk-med one 07/23 0755 dc (brevibloc) iv nitroglycerin/ 250 ml .stk-med one 07/23 0650 dc dextrose iv (nitroglycerin 50,000mcg/d5w 250ml) lidocaine hcl 0 .stk-med one 07/23 0644 dc (xylocaine) .route lidocaine hcl 0 .stk-med one 07/23 0624 dc (xylocaine iv) iv metoprolol tartrate 6.25 mg once 07/23 0600 dc 07/23 (lopressor) po 07/23 0800 0600 verapamil hcl 16.6 mg .q24h one 07/23 0600 ckd (isoptin) iv 07/24 0559 heparin sodium 1,660 unit (porcine) (heparin sodium) sodium bicarbonate 0.7 ml (sodium bicarbonate) nitroglycerin/ 8.3 mg dextrose (nitroglycerin 50mg/ d5w 250ml) lactated ringer's 949.5 ml (lactated ringers) metoprolol tartrate 0 .stk-med one 07/23 0553 dc (lopressor) .route lidocaine hcl 2 ml preop oncall 07/20 1415 dc (lidocaine hcl/pf) local 08/19 2359 lidocaine hcl 2 ml preop oncall 07/20 1415 dc (lidocaine hcl/pf) local 08/19 2359 central nervous system agents sig/austyn start time last medication dose route stop time status admin trazodone hcl 50 mg bedtime 07/23 2100 ac (desyrel) po 08/22 205 pregabalin 25 mg tid 07/23 1500 ac (lyrica) po 08/22 1459 acetaminophen 650 mg q4h prn prn 07/23 1100 ac (tylenol) po 08/22 1059 tramadol hcl 25 mg q4h prn prn 07/23 1100 ac 07/23 (ultram) po 07/28 1059 1238 fentanyl citrate 0 .stk-med one 07/23 0913 dc (sublimaze) .route fentanyl citrate 100 mcg pacu q10min prn prn 07/23 09 ac (sublimaze) iv 07/23 190 fentanyl citrate 50 mcg pacu q10min prn prn 07/23 0900 ac 07/23 (sublimaze) iv 07/23 190 0921 hydrocodone bitart/ 1 tab pacu once 07/23 09 ckd acetaminophen po 07/23 190 (norco 5/325) hydromorphone hcl 1 mg pacu q10min prn prn 07/23 09 ac (dilaudid) iv 07/23 190 hydromorphone hcl 0.5 mg pacu q5min prn prn 07/23 900 ac (dilaudid) iv 07/23 190 tramadol hcl 50 mg pacu once 07/23 09 ckd (ultram) po 07/23 190 fentanyl citrate 0 .stk-med one 07/23 0644 dc (sublimaze) .route propofol 20 ml .stk-med one 07/23 0644 dc (diprivan 200mg/20ml iv injection) gabapentin 0 .stk-med one 07/23 0553 dc (neurontin) .route acetaminophen 0 .stk-med one 07/23 0552 dc (tylenol extra .route strength) acetaminophen 1,000 mg preop oncall 07/20 1415 dc 07/23 (tylenol extra po 08/19 2359 0601 strength) gabapentin 200 mg preop oncall 07/20 141 dc 07/23 (neurontin) po 08/19 2359 0600 electrolytic, caloric, and ariana sig/austyn start time last medication dose route stop time status admin lactated ringer's 1,000 ml .q24h 07/23 0900 ac (lactated ringers) iv 07/23 1900 sodium chloride 500 ml .stk-med one 07/23 0645 dc (sodium chloride iv 0.9%) lactated ringer's 1,000 ml preop oncall 07/20 141 dc (lactated ringers) iv 08/19 2359 sodium chloride 500 ml preop oncall 07/20 141 dc (sodium [...] 0.9%) eye, ear, nose and throat (een sig/austyn start time last medication dose route stop time status admin dexamethasone sodium 0 .stk-med one 07/23 0644 dc phosphate .route (decadron) gastrointestinal drugs sig/austyn start time last medication dose route stop [...] dc (zofran) .route hormones and synthetic substit sig/austyn start time last medication dose route stop time status admin insulin human lispro 0 pacu once prn 07/23 0900 ac (humalog) subq 07/23 1900 local anesthetics (parenteral) sig/austyn start time last medication dose route stop time status admin ropivacaine 150 mg asdir prn 07/23 0900 ac (naropin 0.5% 150 mg/ local 07/23 1900 30ml) respiratory tract agents sig/austyn start time last medication dose route stop time status admin montelukast sodium 4 mg daily 07/24 0900 ckd (montelukast sodium) po 08/23 0859 skin and mucous membrane agent sig/austyn start time last medication dose route stop time status admin mupirocin 1 applic bid 07/23 2100 unv (bactroban 2% 22 gm nasal 07/28 0901 ointment) allergies: coded allergies: no known allergies (07/20/22) ambulatory status: independent review of systems ros constitutional: denies: chills, fatigue, fever, generalized weakness, lethargy, malaise, recent wt loss, other. skin: denies: abrasion, bruising, itching, rash, swelling. allergy/immun: denies: allergic reaction, itching, rhinorrhea, sneezing. eyes: reports: visual loss/blurred. denies: itching, photophobia, swelling. ent: denies: sore throat, throat pain. respiratory: reports: sob. denies: hemoptysis, non productive cough. cardiovascular: denies: chest pain, lozano (dyspnea on exertion), edema, palpitations. gi: denies: abdominal pain, constipation, nausea, vomiting. gu: reports: dysuria. denies: flank pain. musculoskeletal: reports: arthritis, myalgias. denies: extremity pain, extremity swelling, neck pain. heme: denies: adenopathy, bleeding, bruising, petechiae. endocrine: denies: polydipsia, polyphagia, polyuria, weight gain, weight loss. neuro: denies: headache, lightheaded, syncope, weakness. psych: denies: agitation, anxiety, insomnia. all systems rev neg: except as marked objective physical exam vs/i o: last documented: result date time pulse ox 100 07/23 1254 b/p 154/65 07/23 1254 b/p mean 101 07/23 1254 pulse 68 07/23 1254 resp 11 07/23 1254 temp 98.5 07/23 1000 o2 delivery room air 07/23 0855 patient weight and bmi weight (kg): 74.300 bmi: 34.2 medications: active meds + dc'd last 24 hrs losartan potassium (cozaar) 25 mg daily po (can) [...] (olga-synephrine 1000mcg/ns 10ml inj) 0 .stk-med one i- javier (dc) propofol (diprivan 200mg/20ml injection) 20 ml [...] 8.3 mg lactated ringer's (lactated ringers) 949.5 ml gabapentin (neurontin) 0 .stk-med one .route (dc) metoprolol tartrate (lopressor) 0 .stk-med one .route (dc) acetaminophen (tylenol extra strength) 0 .stk-med one .route (dc) cefazolin sodium (kefzol or ancef) 1 gm preop oncall iv (dc) sodium chloride (sodium chloride) 10 ml acetaminophen (tylenol extra strength) 1,000 mg preop oncall [...] 0.9%) 250 ml asdir prn iv (dc) results findings/data: laboratory tests 07/23/22 1110: [embedded image not available] laboratory tests 07/23 07/23 07/23 1110 1108 0857 [...] hct (33.0 - 45.0 %) 31.7 l microbiology: 07/23 0618 nasal: mrsa dna surveillance screen - comp free text obj notes free text obj notes: physical examination: general: in bed, awakee and responsive, not in distress heent: nc/at, decreased vision, neck supple, moist mucous membranes cv: rrr, s1/s2, no murmurs lungs: symetrical expansion, no wheezing/rales, normal work of breathing gi: obese, soft, nt/nd, bowel sounds present gu: no flank pain, voiding skin: warm, no colette, no cyanosi, r neck surgical site, c/d/i neuro: no x3, speech is fluent, no motor or sensory deficits noted psych: calm treatment prophylaxis treatment prophylaxis urine color: anusha oxygen: room air ulcer prophylaxis: pantoprazole diagnosis, assessment plan diagnosis, assessment plan consultants: critical/radar scientist plan discussed with: patient, family, collaborating md, nurse, interdisc care team critical care time: minutes: 35 code status/resusc. discussion resuscitation discussion: discussed with: patient, family code status: full code free text dxa p: ms. man is a 81-year-old female patient who was admitted to ccu after an elective right carotid endarterectomy due to severe right carotid stenosis on cerebral angiogram. she has a past medical history significant for hypertension, hyperlipidemia, diabetes, neuropathy, previous right knee surgery and cholecystectomy. she was seen and examined at the bedside, she is awake and oriented, follows commands, no headache or focal weakness, speech is fluent. reports mild muscle cramping to left lower extremity. bp 128/60, sr 62. problems: cva right carotid stenosis status post right cea hypertension hyperlipidemia diabetes diabetes neuropathy obesity plan: ccu status as needed pain control neurovascular checks per unit protocol neck circumferential checks aspirin/plavix per vascular statin prn hydralazine for sbp >150 monitor renal function, uop replete electrolytes as needed bedside swallowing test reconcile home meds hemoglobin and surgical site checks, monitor for bleeding, transfuse for hemoglobin less than 7. glycemic control with iss, accu-cheks. obtain hemoglobin a1c mrsa negative; ua cx + for proteus mirabilis; start zosyn dvt prophylaxis: scds. home dose ppi pt/ot/speech thank you for allowing us to participate in the care of this patient, will follow along during hospital stay. patient is a full code i spent 35 minutes of critical care reviewing labs, imaging and discussing plans of care with radar scientist, interdisciplinary team electronically signed by riccardo kendall on 07/23/22 at 1702 addendum 1: 07/24/22 1139 by riccardo kendall problems: urinary tract infection. electronically signed by riccardo kendall on 07/24/22 at 1140 rpt #:[id number] end of [id number] 10:57:00 [facility] ([facility]) history physical - adult report#:[id number] report status: signed date:07/23/22 time: 105 patient: nita man unit #: [id number] room/bed: [place] [address] : 39 age: 81 sex: f attend: rusty angeles md adm dt: 07/23/22 author: julian gama naphthalene still operator * all edits or amendments must be made on the electronic/computer document * louie toscano 07/23/22 1057: history of present illness hpi chief complaint: right carotid stenosis pcp: pcp: vikram orr v, md hpi: very pleasant 81-year-old female with past medical history of hypertension, hyperlipidemia, diabetes who was getting cardiac clearance for endoscopic procedure and was found to have severe right carotid stenosis on cerebral angiogram performed on 06/18/[address] eagle. she denies headache or focal weakness but reports dizziness. history additional medical history: hypertension hyperlipidemia diabetes alcohol use: denies etoh use drug use: denies recreational drugs smoking status: smoking status for patients 13 years old or older: never smoker medication/allergy-vaccine hx medications: home medications: medication dose/rte/freq days qty entered last [...] strength: 25 mg tab 1444 current hospital medications: anti-infective agents sig/austyn start time last medication dose route stop time status admin cefazolin sodium 0 .stk-med one 07/23 0717 dc (kefzol or ancef) .route cefazolin sodium 1 gm preop oncall 07/23 0500 dc (kefzol or ancef) iv 07/23 235 sodium chloride 10 ml (sodium chloride) autonomic drugs sig/austyn start time last medication dose route stop time status admin glycopyrrolate 0 .stk-med one 07/23 831 dc (glycopyrrolate) .route neostigmine 0 .stk-med one 07/23 831 dc methylsulfate .route (prostigmin) glycopyrrolate 0 .stk-med one 07/23 0723 dc (glycopyrrolate) .route neostigmine 0 .stk-med one 07/23 723 dc methylsulfate .route (prostigmin) ephedrine sulfate 0 .stk-med one 07/23 0716 dc (ephedrine sulfate) .route phenylephrine hcl 250 ml .stk-med one 07/23 0648 dc (phenylephrine 30 mg/ iv ns 250 ml) phenylephrine hcl 0 .stk-med one 07/23 644 dc (olga-synephrine i-javier 1000mcg/ns 10ml inj) rocuronium bromide 0 .stk-med one 07/23 644 dc (zemuron) iv blood formation,coagulation sig/austyn start time last medication dose route stop time status admin protamine sulfate 0 .stk-med one 07/23 0831 dc (protamine sulfate) iv heparin sodium 0 .stk-med one 07/23 0644 dc (heparin sodium) .route heparin sodium 0 .stk-med one 07/23 06 dc (heparin sodium) .route thrombin 0 .stk-med one 07/23 0624 dc (recothrom) topical cardiovascular drugs sig/austyn start time last medication dose route stop time status admin losartan potassium 25 mg daily 07/24 0900 ac (cozaar) po 08/23 0859 atorvastatin calcium 10 mg bedtime 07/23 2100 ac (lipitor) po 08/23 0859 isosorbide 10 mg daily 07/23 1200 ac 07/23 mononitrate po 08/22 1159 1229 (isosorbide mononitrate) hydralazine hcl 5 mg pacu q10min prn prn 07/23 0900 ac (apresoline) iv 07/23 1900 labetalol hcl 5 mg pacu q10min prn prn 07/23 0900 ac (labetalol hcl) iv 07/23 1900 esmolol hcl 0 .stk-med one 07/23 0755 dc (brevibloc) iv nitroglycerin/ 250 ml .stk-med one 07/23 0650 dc dextrose iv (nitroglycerin 50,000mcg/d5w 250ml) lidocaine hcl 0 .stk-med one 07/23 0644 dc (xylocaine) .route lidocaine hcl 0 .stk-med one 07/23 0624 dc (xylocaine iv) iv metoprolol tartrate 6.25 mg once 07/23 06 dc 07/23 (lopressor) po 07/23 0800 0600 verapamil hcl 16.6 mg .q24h one 07/23 0600 ckd (isoptin) iv 07/24 0559 heparin sodium 1,660 unit (porcine) (heparin sodium) sodium bicarbonate 0.7 ml (sodium bicarbonate) nitroglycerin/ 8.3 mg dextrose (nitroglycerin 50mg/ d5w 250ml) lactated ringer's 949.5 ml (lactated ringers) metoprolol tartrate 0 .stk-med one 07/23 0553 dc (lopressor) .route lidocaine hcl 2 ml preop oncall 07/20 1415 dc (lidocaine hcl/pf) local 08/19 235 lidocaine hcl 2 ml preop oncall 07/20 1415 dc (lidocaine hcl/pf) local 08/19 235 central nervous system agents sig/austyn start time last medication dose route stop time status admin trazodone hcl 50 mg bedtime 07/23 2100 ac (desyrel) po 08/22 205 pregabalin 25 mg tid 07/23 1500 ac (lyrica) po 08/22 1459 acetaminophen 650 mg q4h prn prn 07/23 1100 ac (tylenol) po 08/22 1059 tramadol hcl 25 mg q4h prn prn 07/23 1100 ac 07/23 (ultram) po 07/28 1059 1238 fentanyl citrate 0 .stk-med one 07/23 0913 dc (sublimaze) .route fentanyl citrate 100 mcg pacu q10min prn prn 07/23 0900 ac (sublimaze) iv 07/23 1900 fentanyl citrate 50 mcg pacu q10min prn prn 07/23 0900 ac 07/23 (sublimaze) iv 07/23 1900 0921 hydrocodone bitart/ 1 tab pacu once 07/23 0900 ckd acetaminophen po 07/23 1900 (norco 5/325) hydromorphone hcl 1 mg pacu q10min prn prn 07/23 0900 ac (dilaudid) iv 07/23 1900 hydromorphone hcl 0.5 mg pacu q5min prn prn 07/23 0900 ac (dilaudid) iv 07/23 1900 tramadol hcl 50 mg pacu once 07/23 0900 ckd (ultram) po 07/23 1900 fentanyl citrate 0 .stk-med one 07/23 0644 dc (sublimaze) .route propofol 20 ml .stk-med one 07/23 0644 dc (diprivan 200mg/20ml iv injection) gabapentin 0 .stk-med one 07/23 0553 dc (neurontin) .route acetaminophen 0 .stk-med one 07/23 0552 dc (tylenol extra .route strength) acetaminophen 1,000 mg preop oncall 07/20 1415 dc 07/23 (tylenol extra po 08/19 2359 0601 strength) gabapentin 200 mg preop oncall 07/20 1415 dc 07/23 (neurontin) po 08/19 2359 0600 electrolytic, caloric, and ariana sig/austyn start time last medication dose route stop [...] 0.9%) eye, ear, nose and throat (een sig/austyn start time last medication dose route stop time status admin dexamethasone sodium 0 .stk-med one 07/23 0644 dc phosphate .route (decadron) gastrointestinal drugs sig/austyn start time last medication dose route stop [...] dc (zofran) .route hormones and synthetic substit sig/austyn start time last medication dose route stop time status admin insulin human lispro 0 pacu once prn 07/23 0900 ac (humalog) subq 07/23 1900 local anesthetics (parenteral) sig/austyn start time last medication dose route stop time status admin ropivacaine 150 mg asdir prn 07/23 09 ac (naropin 0.5% 150 mg/ local 07/23 1900 30ml) respiratory tract agents sig/austyn start time last medication dose route stop time status admin montelukast sodium 4 mg daily 07/24 09 ckd (montelukast sodium) po 08/23 0859 allergies: coded allergies: no known allergies (07/20/22) review of systems constitutional: denies: chills, fever, malaise. allergy/immun: denies: allergic reaction. respiratory: denies: sob. cardiovascular: denies: palpitations. heme: denies: bleeding. neuro: denies: dizziness, headache. physical exam vs/i o vital signs: date time temp pulse resp b/p b/p pulse o2 o2 flow fio2 mean ox delivery rate 07/23 0920 62 18 128/60 93 07/23 0915 60 18 128/60 98 07/23 0910 62 18 135/58 98 07/23 0905 64 20 140/62 98 07/23 0900 64 18 149/61 100 07/23 0855 98.0 64 18 152/75 100 room air 07/23 0555 97.8 65 18 175/73 100 room air patient weight: weight (lb): 163 weight (oz): 12.86 weight (kg): 74.300 general appearance: alert, oriented, pleasant, mental status normal, no respiratory distress head/eyes: atraumatic, normocephalic neck: non-tender, no masses or swelling cardiovascular: regular rate rhythm, normal heart sounds respiratory: clear to auscultation, aerating well, symmetric expansion abdomen/gi: soft, non-tender genitourinary: normal cervical exam extremities: moves all, no edema-all extremities neuro/television maintenance man: alert, oriented x 3, normal speech, no motor deficits psychiatry: normal affect results findings/data: laboratory tests: 07/23 07/23 07/23 07/23 1110 1108 [...] - 45.0 %) 31.7 l diagnosis, assessment plan orders: procedure date/time status cbc w/auto diff 07/24 [...] admit patient (cpoe) 07/23 1048 active consultants: critical/radar scientist free text dxa p notes free text dxa p notes: plan admit patient to ccu neuro checks monitor right neck incision, yumi output blood pressure control resume home meds monitor renal function continue close monitoring in icu rusty angeles 07/24/22 0918: attestations physician attestation agree w/findings plan: i have seen and examined ms. man. i [...] by julian gama np on 07/23/22 at 1605 electronically signed by rusty angeles md on 07/24/22 at 0929 [facility] #:[id number] end of [id number] 08:40:00 [facility] ([facility]) dt operative note report#:[id number] report status: signed date:07/23/22 time: 08 patient: nita man unit #: [id number] room/bed: : 39 age: 81 sex: f attend: rusty angeles md adm dt: 07/23/22 author: rusty angeles md * all edits or amendments must be made on the electronic/computer document * operative report operative note note: preoperative diagnosis: asymptomatic severe right internal carotid artery stenosis postoperative diagnosis: asymptomatic severe right internal carotid artery stenosis operation: right carotid endarterectomy surgeon: rusty angeles md assistant toddler teacher: destini forbes anesthesiologist: sonia sosa md anesthesia: general endotracheal anesthesia estimated blood loss: 20 cc indication: ms man is a very pleasant 81-year-old female with severe right internal carotid artery stenosis. after due preop counseling she was brought to the operating room today for right carotid endarterectomy. findings: 1. calcified plaque at the bifurcation of the right common carotid artery leading to a pinhole opening in the right internal carotid artery. 2. good endpoint in the right internal carotid artery following endarterectomy. 3. the hypoglossal nerve was identified and protected throughout the procedure. 4. the tongue was in the midline and patient was moving all extremities at the end of the procedure. procedure: ms man was identified in the preop holding area and brought to the operating room and placed supine on the operating table. after induction of general endotracheal anesthesia at the right side of [...] scissors. a funez shunt was then placed in the right common and internal carotid artery. next using a penfield dissector endarterectomy of the right common and internal carotid artery was performed. endarterectomy of the right external carotid artery was performed using eversion technique. there was a good endpoint in the [...] rusty angeles md on 07/23/22 at 0843 [facility] #:[id number] end of [id number] [place] [address] patient name: nita man admit date: account no: [id number] room no: age: 81 report type: eelectrocardiogram report sex: f admitting physician: attending physician:rusty angeles md order: [id number] test reason : pre op test date/time stamp: satjul 20 2022 13:55:01 blood pressure : / mmhg vent. rate : 066 bpm atrial rate : 066 bpm p-r int : 160 ms qrs dur : 124 ms qt int : 454 ms p-r-t axes : 079 -26 040 degrees qtc int : 475 ms normal sinus rhythm right bundle branch block abnormal ecg no previous ecgs available confirmed by dao sam md ([id number]) on 07/20/2022 2:31:38 pm referred by: kayden angeles confirmed by:dao sam md electronically signed by dao sam md on 07/20/22 at 1431 patient name: nita man
[2024-11-01 15:10] LABS: Protime INR 1.07
--- NOTE | 2024-11-01 15:18 | RAD REPORT ---
EXAM: CT brain without contrast HISTORY: Dizziness;Headache COMPARISON: 06/11/2021 TECHNIQUE: Multiple contiguous axial images were obtained and a CT of the brain without contrast. Sag ittal and coronal reformats were performed. One or more of the following dose reduction techniques were used: Automated exposure control, adjust ment of the mA and/or kV according to patient size, and/or iterative reconstruction. FINDINGS: No evidence of hydrocephalus, intracranial hemorrhage, or extra-axial fluid collection. Mild brain atrophy with mild periventricular and deep white matter chronic microvascular ischemic ch anges present. No evidence of midline shift or areas of brain edema. The calvarium is intact. The visualized paranasal sinuses and mastoid air cells are essentially clear . IMPRESSION: No evidence of acute intracranial abnormality.
--- NOTE | 2024-11-01 15:24 | RAD REPORT ---
EXAMINATION: ONE VIEW CHEST XR CLINICAL INDICATION: COUGH TECHNIQUE: Frontal chest projection is submitted. Examination is limited by patient positioning and t echnique. COMPARISON: 07/17/2022 FINDINGS: The lungs are mildly emphysematous but well inflated and clear. The heart is upper limit of normal in size. No displaced fractures identified. Right-sided neck clips. IMPRESSION: No acute intrathoracic abnormalities.
[2024-11-01 15:25] LABS: AST/SGOT 12 U/L (15-37); Albumin 3.2 g/dL (3.4-5.0); Alkaline Phosphatase 74 U/L (45-117); Anion Gap 11.1 mEq/L (5.0-15.0); BUN Blood Urea Nitrogen 15 mg/dL (7-18); Bicarbonate 21 mEq/L (21-32); Bilirubin Total 0.4 mg/dL (0.2-1.0); Globulin 3.3 g/dL (2.3-3.5); Glomerular Filtration Rate 53 ml/min (=/>90); Glucose Level 137 mg/dL (74-106); Magnesium 1.8 mg/dL (1.6-2.4); NT PRO-BNP 709 pg/mL (<450); Potassium 4.1 mEq/L (3.5-5.1); Protein, Total 6.5 g/dL (6.4-8.2); Sodium Level 138 mEq/L (136-145); Troponin High Sensitivity 24.6 pg/mL (<58.9)
[2024-11-01 15:33] LABS: ALT/SGPT < 14 U/L (13-56); Bilirubin Direct < 0.2 mg/dL (0-0.2); Bilirubin Indirect, Calculated 0.2 mg/dL (0.2-0.8)
[2024-11-01 16:12] LABS: Sqamous Epithelial None Seen /HPF (None Seen); Urine Microscopic Reflex YN ORDER UMIC; Urine RBC <5 /HPF (None Seen); Urine WBC <5 /HPF (<5)
[2024-11-01 16:16] LABS: Absolute Eosinophils 0.1 K/uL (0-0.5); Absolute Lymphocytes (CBC) 1.4 K/uL (0.7-4.9); Absolute Monocytes 0.4 K/uL (0.1-1.3); Absolute Neutrophil 4.3 K/uL (1.8-8.0); Basophils % 0.8 % (0-1.3); Hematocrit 34.5 % (36.0-45.0); Hemoglobin 11.3 g/dL (12.0-15.0); Lymphocytes % 22.2 % (15.3-44.8); MCH 30.4 pg (27.0-35.0); MCHC 32.7 g/dL (32.0-36.0); MCV 92.9 fL (80-100); MPV 9.2 fL (7.6-11.3); Monocytes % 6.6 % (3.3-12.3); Neutrophils % 69.4 % (41.7-73.7); Platelets 193 thou/uL (152-406); RBC Red Blood Cell Count 3.72 M/uL (3.86-4.86); Red Cell Distribution Width 13.9 % (12.1-15.2)
[2024-11-01 16:23] LABS: Specific Gravity 1.006 (1.005-1.030); Transitional Epithelial <5 /HPF (None Seen); Urine Bacteria <20 /HPF (<20); Urine Bilirubin NEGATIVE (Negative); Urine Blood Negative (Negative); Urine Clarity Clear (Clear); Urine Color Colorless (Yellow); Urine Glucose NEGATIVE (Negative); Urine Ketones NEGATIVE (Negative); Urine Nitrite NEGATIVE (Negative); Urine Protein 1+ (Negative); Urine Urobilinogen Normal (Normal); Urine pH 6.5 (5.0-7.0)
--- NOTE | 2024-11-01 16:38 | ER ---
Nurse's Notes [facility] Name: Madison Cerrato Age: 84 yrs Sex: Female : 1940 Arrival Date: 11/01/2024 Time: 14:14 Bed 3 Private MD: Diagnosis: Essential (primary) hypertension;Headache Presentation: 11/01 14:27 Chief complaint: Patient's son or daughter states: REESE x 3 days, high blood pressure ss this morning reading 198/83 and 204/84. Coronavirus screen: Client denies travel out of the [place] in the last 14 days. Ebola Screen: Patient denies exposure to infectious person. Patient denies travel to an Ebola-affected area in the 21 days before illness onset. Initial Sepsis Screen: Does the patient meet any 2 criteria? No. Patient's initial sepsis screen is negative. Does the patient have a suspected source of infection? No. Patient's initial sepsis screen is negative. Risk Assessment: Do you want to hurt yourself or someone else? Patient reports no desire to harm self or others. Onset of symptoms was November 27, 2024. 14:27 Method Of Arrival: Ambulatory ss 14:27 Acuity: JOHN 2 ss Historical: - Allergies: 14:28 Codeine; ss - PMHx: 14:28 Alzheimer's disease; Hypercholesterolemia; diabetes mellitus; Dementia; Hypertensive ss disorder; kidney disease; CVA; Congestive heart failure; - PSHx: 14:28 Cholecystectomy; knee; ss - Immunization history:: Adult Immunizations up to date. - Infectious Disease History:: Denies. - Social history:: Smoking status: Patient denies any tobacco usage or history of. Screenin:59 [facility] ED Fall Risk Assessment (Adult) History of falling in the last 3 months, jl7 including since admission No falls in past 3 months (0 pts) Confusion or Disorientation No (0 pts) Intoxicated or Sedated No (0 pts) Impaired Gait No (0 pts) Mobility Assist Device Used No (0 pt) Altered Elimination No (0 pt) Score/Fall Risk Level 0 - 2 = Low Risk Oriented to surroundings, Maintained a safe environment. Abuse screen: Denies threats or abuse. Denies injuries from another. Nutritional screening: No deficits noted. Tuberculosis screening: No symptoms or risk factors identified. Assessment: 14:30 General: Appears in no apparent distress. uncomfortable, Behavior is calm, cooperative, jl7 appropriate for age. Pain: Complains of pain in "mild headache". Neuro: Level of Consciousness is awake, alert, obeys commands, Oriented to person, place, time, situation. Cardiovascular: Patient's skin is warm and dry. Rhythm is sinus bradycardia. Respiratory: Airway is patent Respiratory effort is even, unlabored, Respiratory pattern is regular, symmetrical. GI: No signs and/or symptoms were reported involving the gastrointestinal system. : No signs and/or symptoms were reported regarding the genitourinary system. Derm: Skin is pink, warm \\T\\ dry. 15:30 Reassessment: Patient appears in no apparent distress at this time. No changes from jl7 previously documented assessment. Patient and/or family updated on plan of care and expected duration. Pain level reassessed. Patient is alert, oriented x 3, equal unlabored respirations, skin warm/dry/pink. Vital Signs: 14:27 BP 203 / 67; Pulse 71; Resp 16; Temp 97.6(TE); Pulse Ox 98% on R/A; Weight 78.02 kg; ss Height 4 ft. 11 in. ; Pain 3/10; 15:59 BP 198 / 70; Pulse 57; Resp 15; Pulse Ox 98% ; jl7 16:45 BP 197 / 66; Pulse 58; Resp 15; Pulse Ox 98% ; jl7 14:27 Body Mass Index 34.74 (78.02 kg, 149.86 cm) ss 14:27 Pain Scale: Adult ss Terrell Coma Score: 15:55 Eye Response: spontaneous(4). Motor Response: obeys commands(6). Verbal Response: antonio oriented(5). Total: 15. ED Course: 14:17 Patient arrived in ED. mr 14:28 Triage completed. ss 14:28 Arm band placed on right wrist. ss 14:30 Patient has correct armband on for positive identification. Placed in gown. Bed in low jl7 position. Call light in reach. Side rails up X2. Provided Education on: use of call avitia. Client placed on continuous cardiac and pulse oximetry monitoring. NIBP monitoring applied. 14:30 Warm blanket given. jl7 14:31 Zane Smith, NAN is Primary Nurse. bp 14:34 Tyler Bailey MD is Attending Physician. [facility] 15:08 Initial lab(s) drawn, by wy, sent to lab. EKG done, by ED staff, reviewed by Tyler Bailey MD. Inserted saline lock: 22 gauge in right forearm, using aseptic technique. Blood collected. Flushed with 10 mL NS. 15:11 XRAY Chest (1 view) In Process Unspecified. EDMS 15:12 CT Head Brain wo Cont In Process Unspecified. EDMS 15:45 IV discontinued, intact, bleeding controlled, No redness/swelling at site. Pressure jl7 dressing applied. 16:00 No provider procedures requiring assistance completed. jl7 16:00 Lab(s) recollected, by wy, sent to lab. Inserted saline lock: 22 gauge in right hand, jlMyesha using aseptic technique. Blood collected. Flushed with 10 mL NS. 16:37 Haile Eagle MD is Referral Physician. [facility] Administered Medications: 17:11 Not Given (Physician Discretion): ns 0.9% 1000 ml IV at 75 ml/hr continuous [facility] 17:11 Drug: Losartan-Hydrochlorothiazide PO 50 mg-12.5 mg 1 tablet PO once Route: PO; jl7 17:11 Follow up: Response: Medication administered at discharge. jl7 Medication: 15:59 VIS not applicable for this client. 7 Outcome: 16:37 Discharge ordered by . [facility] 17:13 Discharged to home via wheelchair, with family, [facility] 17:13 Condition: stable 17:13 Discharge instructions given to patient, family, Instructed on discharge instructions, follow up and referral plans. medication usage, Demonstrated understanding of instructions, follow-up care, medications, Prescriptions given X 2, 17:13 Patient left the ED. jl7 Signatures: Dispatcher [employer] Tyler Baldwin MD MD cha Rivera, Mary, Reg Reg mr Miladys Reyes, RN RN ss Pritesh Rosario RN RN jl7 Peltier, Brian, RN RN bp
--- NOTE | 2024-11-01 16:38 | EDPHYS ---
Physician Documentation [facility] Name: Madison Cerrato Age: 84 yrs Sex: Female : 1940 Arrival Date: 11/01/2024 Time: 14:14 Bed 3 Private MD: ED Physician Tyler Bailey HPI: 11/01 15:48 This 84 yrs old Female presents to ER via Ambulatory with complaints of High antonio Blood Pressure, Headache. 15:48 The patient has elevated blood pressure and discovered this at home, with a home antonio device. Onset: The symptoms/episode began/occurred 1 day(s) ago. Modifying factors: The symptoms are aggravated by activity, The symptoms are alleviated by remaining still. Associated signs and symptoms: The patient has no apparent associated signs or symptoms. Severity of symptoms: At its worst the blood pressure was mild, in the emergency department the blood pressure is unchanged. The patient has experienced similar episodes in the past, a few times. Historical: - Allergies: 14:28 Codeine; ss - PMHx: 14:28 Alzheimer's disease; Hypercholesterolemia; diabetes mellitus; Dementia; Hypertensive ss disorder; kidney disease; CVA; Congestive heart failure; - PSHx: 14:28 Cholecystectomy; knee; ss - Immunization history:: Adult Immunizations up to date. - Infectious Disease History:: Denies. - Social history:: Smoking status: Patient denies any tobacco usage or history of. ROS: 15:52 Constitutional: Negative for fever, chills, and weight loss, Eyes: Negative for injury, antonio pain, redness, and discharge, ENT: Negative for injury, pain, and discharge, Neck: Negative for injury, pain, and swelling, Cardiovascular: Negative for chest pain, palpitations, and edema, Respiratory: Negative for shortness of breath, cough, wheezing, and pleuritic chest pain, Abdomen/GI: Negative for abdominal pain, nausea, vomiting, diarrhea, and constipation, Back: Negative for injury and pain, : Negative for injury, bleeding, discharge, and swelling, MS/Extremity: Negative for injury and deformity, Skin: Negative for injury, rash, and discoloration, Psych: Negative for depression, anxiety, suicide ideation, homicidal ideation, and hallucinations, Allergy/Immunology: Negative for hives, rash, and allergies, Endocrine: Negative for neck swelling, polydipsia, polyuria, polyphagia, and marked weight changes, Hematologic/Lymphatic: Negative for swollen nodes, abnormal bleeding, and unusual bruising, 15:52 Neuro: Positive for headache, Exam: 15:52 Constitutional: This is a well developed, well nourished patient who is awake, alert, antonio and in no acute distress. Head/Face: Normocephalic, atraumatic. Eyes: Pupils equal round and reactive to light, extra-ocular motions intact. Lids and lashes normal. Conjunctiva and sclera are non-icteric and not injected. Cornea within normal limits. Periorbital areas with no swelling, redness, or edema. ENT: Nares patent. No nasal discharge, no septal abnormalities noted. Tympanic membranes are normal and external auditory canals are clear. Oropharynx with no redness, swelling, or masses, exudates, or evidence of obstruction, uvula midline. Mucous membranes moist. Neck: Trachea midline, no thyromegaly or masses palpated, and no cervical lymphadenopathy. Supple, full range of motion without nuchal rigidity, or vertebral point tenderness. No Meningismus. Chest/axilla: Normal chest wall appearance and motion. Nontender with no deformity. No lesions are appreciated. Cardiovascular: Regular rate and rhythm with a normal S1 and S2. No gallops, murmurs, or rubs. Normal PMI, no JVD. No pulse deficits. Respiratory: Lungs have equal breath sounds bilaterally, clear to auscultation and percussion. No rales, rhonchi or wheezes noted. No increased work of breathing, no retractions or nasal flaring. Abdomen/GI: Soft, non-tender, with normal bowel sounds. No distension or tympany. No guarding or rebound. No evidence of tenderness throughout. Back: No spinal tenderness. No costovertebral tenderness. Full range of motion. Skin: Warm, dry with normal turgor. Normal color with no rashes, no lesions, and no evidence of cellulitis. MS/ Extremity: Pulses equal, no cyanosis. Neurovascular intact. Full, normal range of motion., bilateral aka Neuro: Awake and alert, GCS 15, oriented to person, place, time, and situation. Cranial nerves II-XII grossly intact. Motor strength 5/5 in all extremities. Sensory grossly intact. Cerebellar exam normal. Normal gait. Psych: Awake, alert, with orientation to person, place and time. Behavior, mood, and affect are within normal limits. 15:52 ECG was reviewed by the Attending Physician. Vital Signs: 14:27 BP 203 / 67; Pulse 71; Resp 16; Temp 97.6(TE); Pulse Ox 98% on R/A; Weight 78.02 kg; ss Height 4 ft. 11 in. ; Pain 3/10; 15:59 BP 198 / 70; Pulse 57; Resp 15; Pulse Ox 98% ; jl7 16:45 BP 197 / 66; Pulse 58; Resp 15; Pulse Ox 98% ; jl7 14:27 Body Mass Index 34.74 (78.02 kg, 149.86 cm) ss 14:27 Pain Scale: Adult ss Terrell Coma Score: 15:55 Eye Response: spontaneous(4). Motor Response: obeys commands(6). Verbal Response: antonio oriented(5). Total: 15. MDM: 14:34 Medical Screening Exam initiated antonio 15:55 Differential diagnosis: cluster headache, cerebral vascular accident, epidural antonio hematoma, hypertensive crisis, Malignant HTN, CVA, intracerebral hemorrhage, hypertensive headache, hypoglycemia, hyponatremia, intracerebral hemorrhage. Data reviewed: vital signs, nurses notes, lab test result(s), EKG, radiologic studies, CT scan. Consideration of Admission/Observation Escalation of care including admission/observation considered. I considered the following discharge prescriptions or medication management in the emergency department Medications were administered in the Emergency Department. See MAR. Independent interpretation of the following test(s) in the Emergency Department EKG: See my EKG interpretation above. Test considered but Not performed: MRI: no mri brain. Care significantly affected by the following chronic conditions: Diabetes, Hypertension, Obesity, alz dz, high chlesterol, dementia. 11/01 14:36 Order name: Basic Metabolic Panel; Complete Time: 15:39 [facility] 11/01 14:36 Order name: CBC with Diff; Complete Time: 16:37 [facility] 11/01 14:36 Order name: LFT's; Complete Time: 15:39 [facility] 11/01 14:36 Order name: Magnesium; Complete Time: 15:39 [facility] 11/01 14:36 Order name: NT PRO-BNP; Complete Time: 15:39 [facility] 11/01 14:36 Order name: PT-INR; Complete Time: 15:39 [facility] 11/01 14:36 Order name: Troponin HS; Complete Time: 15:39 [facility] 11/01 14:36 Order name: Urinalysis w/ reflexes; Complete Time: 16:37 [facility] 11/01 14:36 Order name: XRAY Chest (1 view); Complete Time: 15:39 [facility] 11/01 14:36 Order name: CT Head Brain wo Cont; Complete Time: 15:39 [facility] 11/01 14:36 Order name: Cardiac monitoring; Complete Time: 15:08 [facility] 11/01 14:36 Order name: EKG - Nurse/Tech; Complete Time: 15:08 [facility] 11/01 14:36 Order name: IV Saline Lock; Complete Time: 15:08 [facility] 11/01 14:36 Order name: Labs collected and sent; Complete Time: 15:08 [facility] 11/01 14:36 Order name: O2 Per Protocol; Complete Time: 15:08 [facility] 11/01 14:36 Order name: O2 Sat Monitoring; Complete Time: 15:08 [facility] 11/01 15:21 Order name: Misc. Order: recollect lavender top; Complete Time: 16:01 11/01 15:58 Order name: PO challenge: juice; Complete Time: 17:11 [facility] EC:52 Rate is 60 beats/min. Rhythm is regular. QRS [place] is Normal. CO interval is normal. QRS antonio interval is normal. QT interval is normal. No Q waves. T waves are Normal. No ST changes noted. Clinical impression: NSR w/ Non-specific ST/T Changes and No evidence of ischemia. Interpreted by me. Reviewed by me. Administered Medications: 17:11 Not Given (Physician Discretion): ns 0.9% 1000 ml IV at 75 ml/hr continuous jl7 17:11 Drug: Losartan-Hydrochlorothiazide PO 50 mg-12.5 mg 1 tablet PO once Route: PO; jl7 17:11 Follow up: Response: Medication administered at discharge. jl7 Disposition Summary: 11/01/24 16:37 Discharge Ordered Notes: Location: Home antonio Problem: new antonio Symptoms: have improved antonio Condition: Stable antonio Diagnosis - Essential (primary) hypertension antonio - Headache antonio Followup: antonio - With: Private Physician - When: 2 - 3 days - Reason: Recheck today's complaints, Continuance of care, Re-evaluation by your physician Followup: antonio - With: Haile Eagle MD - When: 2 - 3 days - Reason: Recheck today's complaints, Continuance of care, Re-evaluation by your physician Discharge Instructions: - Discharge Summary Sheet [facility] - Potassium Content of Foods antonio - Hypertension, Adult antonio - Hypertension, Adult, [id number] antonio - How to Take Your Blood Pressure, [id number] antonio - Aspirin and Your Heart antonio - Managing Your Hypertension [facility] Forms: - Medication Reconciliation Form [facility] - Antibiotic Education antonio - Prescription Opioid Use antonio - Patient Portal Instructions [facility] - Leadership Thank You Letter [facility] Prescriptions: - losartan-hydrochlorothiazide 50-12.5 mg Oral tablet - take 1 tablet ORAL route daily cont losartan 50 mg in the pm, this med in the antonio morning; 20 tablet; Refills: 0, Product Selection Permitted - Potassium Chloride 20 meq Oral Packet - take 1 packet ORAL route once daily 1 packet in 6 (six) ounces of water or [facility] juice; Take after meal; 20 packet; Refills: 0, Product Selection Permitted Signatures: Dispatcher [employer] EDMS Tyler Bailey MD MD cha Pinkerton, Shawna sp Blanchard, Shelby, RN RN Pritesh Rosario RN RN jl7 Corrections: (The following items were deleted from the chart) 14:37 14:36 BASIC METABOLIC PANEL+C.LAB.BRZ ordered. EDMS EDMS 14:37 14:37 CBC+H.LAB.BRZ ordered. EDMS EDMS 14:37 14:37 HEPATIC FUNCTION+C.LAB.BRZ ordered. EDMS EDMS 14:37 14:37 MAGNESIUM+C.LAB.BRZ ordered. EDMS EDMS 14:37 14:37 PROBNP+C.LAB.BRZ ordered. EDMS EDMS 14:37 14:37 PROTIME (+INR)+COAG.LAB.BRZ ordered. EDMS EDMS 14:37 14:37 Troponin High Sensitivity+C.LAB.BRZ ordered. EDMS EDMS 14:37 14:37 Urinalysis+U.LAB.BRZ ordered. EDMS EDMS 14:37 14:37 Chest Single View+RAD.RAD.BRZ ordered. EDMS EDMS 14:37 14:37 Head Brain Wo Cont+CT.RAD.BRZ ordered. EDMS EDMS
[2024-11-01] MEDS ORDERED: LOSARTAN POTASSIUM 50 MG TABLET ONE (16:52)
[2024-11-01] MEDS ORDERED: hydroCHLOROthiazide 25 MG TAB ONE (16:52)
[2024-11-01 19:31] VITALS: TEMP 97.6; O2SAT 98
[2024-11-01 19:34] VITALS: BP 197/66
== END 2024-11-01 17:13 | disposition home or self-care (01) ==
LOC: ER 14:14
DX: I10 Essential (primary) hypertension (principal); R51.9 Headache, unspecified; E11.9 Type 2 diabetes mellitus without complications; I50.9 Heart failure, unspecified; G30.9 Alzheimer's disease, unspecified; F02.80 Dementia in other diseases classified elsewhere, unspecified severity, without behavioral disturbance, psychotic disturbance, mood disturbance, and anxiety
CPT/HCPCS: 36415; 70450; 71045; 80048; 80076; 81001; 83735; 83880; 84484; 85025; 85610; 99284

== ENCOUNTER 2024-12-12 06:51 | Inpatient (IN) | payer OTHER ==
--- OUTSIDE RECORDS SUMMARY | 2024-12-12 06:56 | XMS REPORT | Continuity of Care Document ---
Author Name Unknown Address [address] [facility] [address] [place] [address] [facility] Address [address] [facility] [address] [place] [address] Care Team Providers Care Filling Hauler Name Role Phone Edenilson Orr MD Primary Care Physician + [phone] Selbst Zane REED Attending Clinician + [phone] ZANE MARI Attending Clinician Unavail able Ronald Mariscal Attending Clinician Unavail able GC_GCBZW_Jordan_S Attending Clinician Unavaila Vero Toledo Attending Clinician Unavaila Jai Lau Attending Clinician TRACY Spencer Attending Clinician Unavailable PHILIP BALTAZAR Attending Clinician Unavailable SHAGGY VILLALPANDO Attending Clinician Unavail able SHAGGY VILLALPANDO Attending Clinician Unavail able Shaggy Villalpando MD Attending Clinician [phone] Maulik Sherman NP Attending Clinician [phone] Doctor Unassigned, [address] Attending Clinician U BISI Cordero Attending Clinician Unavailable MAULIK SHERMAN Attending Clinician Unavailab Bisi Pascual MD Attending Clinician [phone] Ravi THEODORE, Tracy Attending Clinician [phone] JONAH OTERO Attending Clinician Unavailable Shanna THEODORE, Jonah Attending Clinician [phone] WHITEHEAD, ANA Attending Clinician Unavailable Whitehead PEST CONTROL WORKER HELPER, Ana Attending Clinician [phone] Pob, [facility] Main Attending Clinician UnavailPAM Ramirez Attending Clinician Unavailable Pam Kraus Attending Clinician [phone] Do Arboleda MD Attending Clinician [phone] Gramm Berna MENDOZA Attending Clinician [phone] BERNA DONG Attending Clinician Unavailable Cresencio Bush MD Attending Clinician [phone] CRESENCIO BUHS Attending Clinician Unavailable Ronald Mariscal Admitting Clinician Unavail able GC_GCBZW_Faustinaa_S Admitting Clinician UnavailVero Johns Admitting Clinician UnavailJai Arroyo Admitting Clinician JONAH Rodarte Admitting Clinician Unavailable Payers Payer Name Policy Type Policy Number Effective Date Expirati on Date Source [employer] MEDICARE OON Medicare [id number] 2022 00:00:00 [employer] (MEDICARE REPLACEMENT/ADVANT AGE - PPO) [id number] [employer] MEDICARE [id number] 2021 00:00:00 Problems Condition Name Condition Details [...] ess Disease Active 2020-12 2- 00:00: 00 [facility] Hypertensi ve urgency Hypertensi ve urgency Disease Active 2020-12 1-19 00:00: 00 [facility] Contusion of left great toe with damage to nail, initial encounter Contusion of left great toe with damage to nail, initial encounter Disease Active 8-20 00:00: 00 [facility] Arthritis, multiple joint involvemen t Arthritis, multiple joint involvemen t Disease Active 8-20 00:00: 00 [facility] Non compliance with medical treatment Non compliance with medical treatment Disease Active 8-20 00:00: 00 [facility] Diabetic eye exam Diabetic eye exam Disease Active 8-18 00:00: 00 [facility] Senile osteoporos is Senile osteoporos is Disease Active 8-18 00:00: 00 [facility] Need for 23-polyval ent pneumococc al polysaccha ride vaccine Need for 23-polyval ent pneumococc al polysaccha ride vaccine Disease Active 8-18 00:00: 00 [facility] Recurrent UTI Recurrent UTI Disease Active 8-13 00:00: 00 [facility] Cystitis Cystitis Disease Active 8-13 00:00: 00 [facility] Dysuria Dysuria Disease Active 0 8- 00:00: 00 [facility] Lower abdominal pain Lower abdominal pain Disease Active 0 8 00:00: 00 [facility] Alzheimer' s disease of other onset without behavioral disturbanc e Alzheimer' s disease of other onset without behavioral disturbanc e Disease Active 0 8 00:00: 00 [facility] Chronic idiopathic thrombocyt openia Chronic idiopathic thrombocyt openia Disease Active 0 8 00:00: 00 [facility] Pyelonephr itis Pyelonephr itis Disease Active 0 8 00:00: 00 [facility] Gastroesop hageal reflux disease without esophagiti s Gastroesop hageal reflux disease without esophagiti s Disease Active 0 8 00:00: 00 [facility] Primary insomnia Primary insomnia Disease Active 8 00:00: 00 [facility] Hospital discharge follow-up Hospital discharge follow-up Disease Active 8 00:00: 00 [facility] Depression , major, recurrent, moderate Depression , major, recurrent, moderate Disease Active 0 8 00:00: 00 [facility] Anxiety, generalize d Anxiety, generalize d Disease Active 0 8 00:00: 00 [facility] Chronic anemia Chronic anemia Disease Active 0 8 00:00: 00 [facility] Mixed hearing loss, bilateral Mixed hearing loss, bilateral Disease Active 0 8 00:00: 00 [facility] Dyslipidem ia Dyslipidem ia Disease Active 0 8 00:00: 00 [facility] Essential hypertensi on Essential hypertensi on Disease Active 0 8 00:00: 00 [facility] Chronic midline low back pain without sciatica Chronic midline low back pain without sciatica Disease Active 0 8- 00:00: 00 [facility] Urothelial lesion Urothelial lesion Disease Active 8 00:00: 00 [facility] Diverticul osis Diverticul osis Disease Active 07-14 00:00: 00 [facility] Renal scarring Renal scarring Disease Active 07-14 00:00: 00 [facility] Diabetic polyneurop athy associated with type 2 diabetes mellitus Diabetic polyneurop athy associated with type 2 diabetes mellitus Disease Active 07-14 00:00: 00 [facility] Atheroscle rosis of aorta Atheroscle rosis of aorta Disease Active 07-14 00:00: 00 [facility] 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, without long-term current use of 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, without long-term current use of insulin Disease Active 07-14 00:00: 00 [facility] RLS (restless legs syndrome) RLS (restless legs syndrome) Disease Active 07-14 00:00: 00 [facility] Abnormal liver enzymes Abnormal liver enzymes Disease Active 07-14 00:00: 00 [facility] CKD stage G3a/A2, GFR 45-59 and albumin creatinine ratio 30-299 mg/g CKD stage G3a/A2, GFR 45-59 and albumin creatinine ratio 30-299 mg/g Disease Active 07-14 00:00: 00 [facility] Allergies, Adverse Reactions, Alerts Allergy Name Allergy Type Status Severity Reaction(s) Onset Date Inactive Date Treating Clinician Comments Source sulfamet hoxazole DA Active SV DIARRHEA 05-23 00:00: 00 [facility] trimetho prim DA Active SV DIARRHEA 05-23 00:00: 00 [facility] No Known Allergie s DA Active U 07-20 00:00: 00 [facility] CODEINE DRUG INGREDI Active Dizziness 8 00:00: 00 [facility] Codeine Propensi ty to adverse reaction s Active Dizziness 07-05 00:00: 00 [facility] ALLERGIE S NOT ON FILE SYSTEMIC Active MHEOUT ALLERGIE S NOT ON FILE SYSTEMIC Active MHEOUT ALLERGIE S NOT ON FILE SYSTEMIC Active MHEOUT ALLERGIE S NOT ON FILE SYSTEMIC Active MHEOUT ALLERGIE S NOT ON FILE SYSTEMIC Active MHEOUT Social History Social Habit Start Date Stop Date Quantity Comments Source Gender identity Francisco [facility]rel[facility] Sexual orientation [facility] ASSERTION Possible [facility] Exposure to SARS-CoV-2 (event) 2021-11-04 00:00:00 2021-12-04 07:44:00 Not sure [facility] Alcohol intake 2021-07-25 00:00:00 2021-07-25 00:00:00 Lifetime non-drinker (finding) [facility] Tobacco use and exposure 2021-07-21 00:00:00 2021-07-21 00:00:00 Smokeless tobacco non-user [facility] History of Social function 2021-07-14 00:00:00 2021-07-14 00:00:00 [facility] Sex Assigned At 1940 00:00:00 1940 00:00:00 [facility] Smoking Status Start Date Stop Date Source Tobacco smoking consumption unknown [facility] Never smoked tobacco [facility] Medications Ordered Medication Name Filled Medication Name Start Date Stop Date Current Medication? Ordering Clinician Indication Dosage Frequency Signature (SIG) Comments Components Source CLONAZEPAM ORAL 12-04 09:43: 48 Yes Take by mouth. [facility] rivastigmin e 4.6 mg/24 hour patch 12-04 00:00: 00 Yes [id number] 1{patch } Apply 1 Patch to skin daily. Call office for refills. [facility] neomycin-po lymyxin-hyd rocortisone otic solution 2020-12 00:00: 00 Yes [id number] 3[drp] Place 3 Drops in right ear 4 (four) times daily. [facility] losartan-hy drochloroth iazide 50-12.5 mg per tablet 2020-12 00:00: 00 Yes [id number] 1{tbl} Take 1 tablet by mouth daily. [facility] buPROPion XL 300 mg 24 hr tablet 07-28 10:17: 13 Yes 300mg Take 300 mg by mouth daily. [facility] cephALEXin (KEFLEX) 500 mg capsule 07-25 00:00: 00 10-20 00:00 :00 No [id number] 500mg Take 1 capsule by mouth 2 (two) times daily. [facility] IRON 325 mg (65 mg iron) tablet 07-21 00:00: 00 Yes [id number] 325mg Take 1 tablet by mouth 2 (two) times daily. [facility] traZODone 50 mg tablet 07-20 00:00: 00 Yes [id number] 50mg Take 1 tablet by mouth at bedtime. [facility] escitalopra m oxalate 20 mg tablet 07-14 00:00: 00 Yes [id number] 20mg Take 1 tablet by mouth daily. [facility] losartan 25 mg tablet 07-14 00:00: 00 10-20 00:00 :00 No [id number] 25mg Take 1 tablet by mouth daily. [facility] melatonin 3 mg tablet 07-14 00:00: 00 10-20 00:00 :00 No [id number] 3mg Take 1 tablet by mouth at bedtime. [facility] Omeprazole 20 mg tablet 07-14 00:00: 00 10-20 00:00 :00 No [id number] 20mg Take 1 tablet by mouth 2 (two) times daily. [facility] amlodipine 10 mg tablet TAKE ONE (1) TABLET(S) BY MOUTH ONCE A DAY. amlodipine 10 mg tablet TAKE ONE (1) TABLET(S) BY MOUTH ONCE A DAY. No amlodipine 10 mg tablet TAKE ONE (1) TABLET(S) BY MOUTH ONCE A DAY. [facility] amlodipine 5 mg tablet 1 mg every day by oral route. amlodipine 5 mg tablet 1 mg every day by oral route. No 1mg Q1D amlodipine 5 mg tablet 1 mg every day by oral route. [facility] anastrozole 1 mg tablet 1 mg every day by oral route. anastrozole 1 mg tablet 1 mg every day by oral route. No anastrozol e 1 mg tablet 1 mg every day by oral route. [facility] atorvastati n 20 mg tablet TAKE 1 TABLET BY MOUTH EVERY DAY atorvastati n 20 mg tablet TAKE 1 TABLET BY MOUTH EVERY DAY No atorvastat in 20 mg tablet TAKE 1 TABLET BY MOUTH EVERY DAY [facility] cefuroxime axetil 250 mg tablet TAKE 1 TABLET BY MOUTH TWICE A DAY cefuroxime axetil 250 mg tablet TAKE 1 TABLET BY MOUTH TWICE A DAY No cefuroxime axetil 250 mg tablet TAKE 1 TABLET BY MOUTH TWICE A DAY [facility] Cipro 250 mg tablet 1 tablet; every 12 hrs; 3 day(s) Cipro 250 mg tablet 1 tablet; every 12 hrs; 3 day(s) No Cipro 250 mg tablet 1 tablet; every 12 hrs; 3 day(s) [facility] diclofenac 1 % topical gel USE TOPICALLY 4 TIMES A DAY NEEDED diclofenac 1 % topical gel USE TOPICALLY 4 TIMES A DAY NEEDED No diclofenac 1 % topical gel USE TOPICALLY 4 TIMES A DAY NEEDED [facility] fluticasone propionate 50 mcg/actuati on nasal spray,suspe nsion fluticasone propionate 50 mcg/actuati on nasal spray,suspe nsion No fluticason e propionate 50 mcg/actuat ion nasal spray,susp ension [facility] furosemide 20 mg tablet TAKE ONE (1) TABLET(S) BY MOUTH DAILY. furosemide 20 mg tablet TAKE ONE (1) TABLET(S) BY MOUTH DAILY. No furosemide 20 mg tablet TAKE ONE (1) TABLET(S) BY MOUTH DAILY. [facility] ipratropium bromide 42 mcg (0.06 %) nasal spray TWO SPRAYS EACH NOSTRIL TWICE A DAY ipratropium bromide 42 mcg (0.06 %) nasal spray TWO SPRAYS EACH NOSTRIL TWICE A DAY No ipratropiu m bromide 42 mcg (0.06 %) nasal spray TWO SPRAYS EACH NOSTRIL TWICE A DAY [facility] isosorbide mononitrate ER 60 mg tablet,exte nded release 24 hr TAKE ONE (1) TABLET(S) BY MOUTH ONCE A DAY. isosorbide mononitrate ER 60 mg tablet,exte nded release 24 hr TAKE ONE (1) TABLET(S) BY MOUTH ONCE A DAY. No isosorbide mononitrat e ER 60 mg tablet,ext ended release 24 hr TAKE ONE (1) TABLET(S) BY MOUTH ONCE A DAY. [facility] losartan 50 mg tablet TAKE 1 TABLET BY MOUTH EVERY DAY losartan 50 mg tablet TAKE 1 TABLET BY MOUTH EVERY DAY No losartan 50 mg tablet TAKE 1 TABLET BY MOUTH EVERY DAY [facility] losartan potassium (bulk) 50 mg losartan potassium (bulk) 50 mg No losartan potassium (bulk) 50 mg [facility] montelukast 10 mg tablet TAKE ONE (1) TABLET(S) BY MOUTH ONCE A DAY. montelukast 10 mg tablet TAKE ONE (1) TABLET(S) BY MOUTH ONCE A DAY. No montelukas t 10 mg tablet TAKE ONE (1) TABLET(S) BY MOUTH ONCE A DAY. [facility] pantoprazol e 20 mg tablet,peter yed release pantoprazol e 20 mg tablet,peter yed release No pantoprazo le 20 mg tablet,del ayed release [facility] pantoprazol e 40 mg tablet,peter yed release TAKE 1 TABLET BY MOUTH EVERY DAY pantoprazol e 40 mg tablet,peter yed release TAKE 1 TABLET BY MOUTH EVERY DAY No pantoprazo le 40 mg tablet,del ayed release TAKE 1 TABLET BY MOUTH EVERY DAY [facility] pregabalin 150 mg capsule TAKE 1 CAPSULE BY MOUTH TWICE A DAY pregabalin 150 mg capsule TAKE 1 CAPSULE BY MOUTH TWICE A DAY No pregabalin 150 mg capsule TAKE 1 CAPSULE BY MOUTH TWICE A DAY [facility] Probiotic Probiotic No Probiotic [facility] risperidone 1 mg tablet risperidone 1 mg tablet No risperidon e 1 mg tablet [facility] sertraline 25 mg tablet sertraline 25 mg tablet No sertraline 25 mg tablet [facility] trazodone 100 mg tablet TAKE 1 TABLET BY MOUTH EVERY DAY AT BEDTIME FOR INSOMNIA trazodone 100 mg tablet TAKE 1 TABLET BY MOUTH EVERY DAY AT BEDTIME FOR INSOMNIA No trazodone 100 mg tablet TAKE 1 TABLET BY MOUTH EVERY DAY AT BEDTIME FOR INSOMNIA [facility] Vital Signs Vital Name Observation Time Observation Value Comments S yesicace Height 2023-09-06 00:00:00 58 [in_i] [facility] Systolic blood pressure 2021-12-04 15:39:00 147 mm[Hg] [facility] Diastolic blood pressure 2021-12-04 15:39:00 59 mm[Hg] [place] [facility] Heart rate 2021-12-04 15:39:00 64 /min [facility] acute hospital Body height 2021-12-04 15:39:00 152.4 cm [facility] Body weight 2021-12-04 15:39:00 61.1 kg [facility] BMI 2021-12-04 15:39:00 26.31 kg/m2 [facility] Oxygen saturation in Arterial blood by Pulse oximetry 2021-12-04 15:39:00 98 /min [facility] Procedures Procedure Date / Time Performed Performing Clinicia n Source Colpocleisis 2023-06-03 00:00:00 Priv[facility] Mastectomy 2022-09-12 00:00:00 Poli Damon edical [id number] 2022-07-23 00:00:00 CHAAB.01 [facility] Cardiac - Coronary Artery Stent 2022-07-02 00:00:00 [facility] Hysterectomy 1973-12-02 00:00:00 Loriia Nelson edical Encounters Start Date/Time End Date/Time Encounter Type Admission Type Attending Clinicians Care Facility Care Department Encounter ID Source 2024-10-19 12:30:00 2024-10-19 13:15:00 Office Visit [facility]ane [facility] [id number] [id number] [facility] 2024-10-19 11:54:48 2024-10-19 13:15:00 Outpatient Elective ZANE MARI MHEOUT [id number] [facility] 2024-07-31 16:33:00 2024-08-02 12:18:00 Inpatient EM Ronald Mariscal [facility] [id number] [facility] 2024-07-27 12:41:08 2024-07-27 13:08:01 Outpatient Elective SELZANE PLAZA MHEOUT [id number] [facility] 2024-07-27 12:20:00 2024-07-27 12:30:00 Office Visit MarinosummerZane [facility] [id number] 350.1.13.70 [id number] [id number] [facility] 2024-07-20 11:50:00 2024-07-20 12:53:49 Office Visit KamaljitZane [facility] [id number] 350.1.13.70 8.2.7.2.686 [id number] Albaro asencio [facility] 2024-07-20 11:44:53 2024-07-20 12:53:49 Outpatient Elective MARINOLONNYZANE Bynum [facility] [id number] [facility] 2024-02-05 00:00:00 2024-02-05 00:00:00 Outpatient GC_GCBZW_Ka diyala_S PRIV PRIV [id number] [facility] 2024-01-08 00:00:00 2024-01-08 00:00:00 Outpatient GC_GCBZW_Ka diyala_S PRIV PRIV [id number] [facility] 2023-12-11 00:00:00 2023-12-11 00:00:00 Outpatient GC_GCBZW_Ka diyala_S PRIV PRIV [id number] [facility] 2023-11-13 00:00:00 2023-11-13 00:00:00 Outpatient GC_GCBZW_Ka diyala_S PRIV PRIV [id number] [facility] 2023-10-17 00:00:00 2023-10-17 00:00:00 Outpatient GC_GCBZW_Ka diyala_S PRIV PRIV [id number] [facility] 2023-09-18 00:00:00 2023-09-18 00:00:00 Outpatient GC_GCBZW_Ka diyala_S PRIV PRIV [id number] [facility] 2023-09-06 00:00:00 2023-09-06 00:00:00 SHEILA Bashir: [address], [place] [address] , Ph. GC_GCBZW_Ka diyala_S PRIV [facility] - GC_GCBZW_Jenny fonseca [place]* [id number] [facility] 2023-08-29 00:00:00 2023-08-29 00:00:00 Vero Ortega MD: [address], [place] [address] , Ph. GC_GCBZW_Ka diyala_S PRIV [facility] - GC_GCBZW_Jenny fonseca [place]* [id number] [facility] 2023-08-26 00:00:00 2023-08-26 00:00:00 Outpatient GC_GCBZW_Ka diyala_S PRIV PRIV [id number] [facility] 2023-08-26 00:00:00 2023-08-26 00:00:00 Outpatient GC_GCBZW_Ka diyala_S PRIV PRIV [id number] [facility] 2023-08-22 00:00:00 2023-08-22 00:00:00 SHEILA Bashir: [address], [place] [address] , Ph. GC_GCBZW_Ka diyala_S PRIV [facility] - GC_GCBZW_Jenny raymundo [place]* [id number] [facility] 2023-08-01 00:00:00 2023-08-01 00:00:00 Outpatient GC_GCBZW_Ka diyala_S PRIV PRIV [id number] [facility] 2023-07-04 00:00:00 2023-07-04 00:00:00 Outpatient GC_GCBZW_Ka diyala_S PRIV PRIV [id number] [facility] 2023-06-11 00:00:00 2023-06-11 00:00:00 Outpatient GC_GCBZW_Ka diyala_S PRIV PRIV [id number] [facility] 2023-06-10 00:00:00 2023-06-10 00:00:00 Outpatient GC_GCBZW_Ka diyala_S PRIV PRIV [id number] [facility] 2023-06-03 05:24:00 2023-06-04 10:26:00 Inpatient Vero Weems HCAPM MEDI.01 [id number] [facility] 2022-07-23 10:48:00 2022-07-24 15:28:00 Inpatient Kayden Domingo HCACL INTE.02 [id number] [facility] 2022-01-24 11:00:00 2022-01-24 11:00:00 Outpatient TRACY SCHMIDT [facility] [id number] [facility] 2022-01-24 11:00:00 2022-01-24 11:00:00 Outpatient TRACY SCHMIDT [facility] [id number] [facility] 2022-01-24 11:00:00 2022-01-24 11:00:00 Outpatient TRACY SCHMIDT [facility] [id number] [facility] 2022-01-05 10:30:00 2022-01-05 10:30:00 Outpatient PHILIP GRAJEDA [facility] [id number] [facility] 2021-12-04 09:20:00 2021-12-04 10:33:16 Outpatient SHAGGY GENTILE HOWARD [facility] [id number] [facility] 2021-12-04 09:20:00 2021-12-04 10:33:16 [facility] [id number] 350.1.13.10 4.2.7.2.686 [id number] [facility] 2021-11-30 00:00:00 2021-11-30 00:00:00 Letter (Out) [facility] [id number] 350.1.13.10 4.2.7.2.686 [id number] [facility] 2021-11-30 00:00:00 2021-11-30 00:00:00 Patient Secure Msg Doctor Unassigned, [address] [facility] [id number] 350.1.13.10 4.2.7.2.686 [id number] [facility] 2021-11-28 20:40:00 2021-11-28 20:40:00 Outpatient BISI CARMONA [facility] [id number] [facility] 2021-11-28 11:00:00 2021-11-28 12:13:06 Outpatient R MAULIK SHERMAN OGECHUKWU [facility] [id number] [facility] 2021-11-28 11:00:00 2021-11-28 12:13:06 Office Visit Maulik Sherman [facility] 1.2.840.114 350.1.13.10 4.2.7.2.686 [id number] [facility] 2021-11-28 11:00:00 2021-11-28 12:13:06 Outpatient R MAULIK SHERMAN OGECHUKWU [facility] [id number] [facility] 2021-11-28 09:20:00 2021-11-28 09:32:16 Outpatient BISI CARMONA [facility] [id number] [facility] 2021-11-28 09:20:00 2021-11-28 09:32:16 Urgent Care iBsi Flores [facility] 1.2.840.114 350.1.13.10 4.2.7.2.686 [id number] [facility] 2021-11-27 00:00:00 2021-11-27 00:00:00 Telephone KellyrafaelaTracy orona [facility] N[facility] 1.2.840.114 350.1.13.10 4.2.7.2.686 [id number] [facility] 2021-10-31 00:00:00 2021-10-31 00:00:00 Patient Secure Msg Doctor Unassigned, [address] [facility] 1.2.840.114 350.1.13.10 4.2.7.2.686 [id number] [facility] 2021-10-30 09:35:25 2021-10-30 23:59:00 Outpatient R JONAH OTERO [facility] [id number] [facility] 2021-10-30 09:35:25 2021-10-30 23:59:00 Hospital Encounter Jonah Otero [facility] 1.2.840.114 350.1.13.10 4.2.7.2.686 [id number] [facility] 2021-10-29 11:07:00 2021-10-29 12:25:00 Emergency X ANA WHITEHEAD [facility] ERT [id number] [facility] 2021-10-29 11:07:00 2021-10-29 12:25:00 Emergency Ana Whitehead [facility] 1.284.114 350.1.13.10 4.2.7.2.686 [id number] [facility] 2021-10-29 11:07:00 2021-10-29 12:25:00 Emergency X ANA WHITEHEAD [facility] ERT [id number] [facility] 2021-10-20 13:45:00 2021-10-20 13:45:00 Outpatient R TRACY HARRIS [facility] [id number] [facility] 2021-10-20 11:00:00 2021-10-20 13:18:32 Outpatient R TRACY HARRIS [facility] [id number] [facility] 2021-10-20 10:53:42 2021-10-20 13:18:32 [facility] 1.840.114 350.1.13.10 4.2.7.2.686 [id number] [facility] 2021-10-20 13:00:33 2021-10-20 13:15:33 Thoracic Medicine Physician Visit Pob, Adc Lab Main Ravi [facility] 1..840.114 350.1.13.10 4.2.7.2.686 [id number] [facility] 2021-10-20 00:00:00 2021-10-20 00:00:00 Orders Only Doctor Unassigned, [address] [facility] 1.84.114 350.1.13.10 4.2.7.2.686 [id number] [facility] 2021-10-02 18:03:00 2021-10-02 21:16:00 Emergency X PAM WOOTEN [facility] E[facility] [id number] [facility] 2021-10-02 18:03:00 2021-10-02 21:16:00 Emergency X PAM WOOTEN [facility] ERT [id number] [facility] 2021-10-02 18:03:00 2021-10-02 21:16:00 Emergency Pam Wooten [facility] 1.84.114 350.1.13.10 4.2.7.2.686 [id number] [facility] 2021-09-16 00:00:00 2021-09-16 00:00:00 Patient Secure Msg Doctor Unassigned, [address] [facility] 1.2840.114 350.1.13.10 4.2.7.2.686 [id number] [facility] 2021-09-06 12:32:10 2021-09-06 13:32:10 Office Visit Shanna [facility] 1..114 350.1.13.10 4.2.7.2.686 [id number] [facility] 2021-09-06 13:00:00 2021-09-06 13:00:00 Outpatient R SHANNA [facility] [id number] [facility] 2021-09-06 13:00:00 2021-09-06 13:00:00 Outpatient JONAH DAWKINS [facility] [id number] [facility] 2021-09-06 00:00:00 2021-09-06 00:00:00 Telephone RoblesDo [facility] 1.840.114 350.1.13.10 4.2.7.2.686 [id number] [facility] 2021-08-09 00:00:00 2021-08-09 00:00:00 Patient Secure Msg Doctor Unassigned, [address] [facility] 1.0.114 350.1.13.10 4.2.7.2.686 [id number] [facility] 2021-08-04 09:20:00 2021-08-04 09:20:00 Outpatient SHAGGY GENTILE HOWARD [facility] [id number] [facility] 2021-08-04 09:20:00 2021-08-04 09:20:00 Outpatient Ambrocio IRASEMA SHAGGY SHAGGY VILLALPANDO [facility] [id number] [facility] 2021-08-04 00:00:00 2021-08-04 00:00:00 Patient Secure Msg Doctor Unassigned, [address] [facility] 1.20.114 350.1.13.10 4.2.7.2.686 [id number] [facility] 2021-08-03 09:40:00 2021-08-03 09:40:00 Outpatient R KELLYTRACY CRAIG [facility] [id number] [facility] 2021-07-28 09:40:37 2021-07-28 12:11:09 Office Visit João Philip [facility] 1.0.114 350.1.13.10 4.2.7.2.686 [id number] [facility] 2021-07-28 10:00:00 2021-07-28 10:00:00 Outpatient R PHILIP BALTAZAR [facility] [id number] [facility] 2021-07-28 00:00:00 2021-07-28 00:00:00 Orders Only Doctor Unassigned, [address] [facility] 1.20.114 350.1.13.10 4.2.7.2.686 [id number] [facility] 2021-07-27 12:52:31 2021-07-27 23:59:00 Hospital Encounter Tracy Harris [facility] 1.0.114 350.1.13.10 4.2.7.2.686 [id number] [facility] 2021-07-27 12:52:31 2021-07-27 23:59:00 Hospital Encounter Ravi [facility] 1.2840.114 350.1.13.10 4.2.7.2.686 [id number] [facility] 2021-07-27 12:51:56 2021-07-27 12:51:56 Hospital Encounter Ravi [facility] 1.2.840.114 350.1.13.10 4.2.7.2.686 [id number] [facility] 2021-07-27 12:51:56 2021-07-27 12:51:56 Hospital Encounter Ravi [facility] 1.2.840.114 350.1.13.10 4.2.7.2.686 [id number] [facility] 2021-07-27 00:00:00 2021-07-27 00:00:00 Outpatient R KELLYRAFAELATRACY ORONA [facility] [id number] [facility] 2021-07-27 00:00:00 2021-07-27 00:00:00 Patient Secure Msg Doctor Unassigned, [address] [facility] 1.2.840.114 350.1.13.10 4.2.7.2.686 [id number] [facility] 2021-07-26 00:00:00 2021-07-26 00:00:00 Telephone Tracy Harris [facility] 1.2.840.114 350.1.13.10 4.2.7.2.686 [id number] [facility] 2021-07-26 00:00:00 2021-07-26 00:00:00 [facility] 1.2.840.114 350.1.13.10 4.2.7.2.686 [id number] [facility] 2021-07-25 09:18:21 2021-07-25 09:59:32 Office Visit Berna Dong [facility] 1.2.840.114 350.1.13.10 4.2.7.2.686 [id number] [facility] 2021-07-25 09:18:21 2021-07-25 09:59:32 Office Visit Berna Dong [facility] 1.2.840.114 350.1.13.10 4.2.7.2.686 [id number] [facility] 2021-07-25 09:15:00 2021-07-25 09:15:00 Outpatient R BERNA DONG [facility] [id number] [facility] 2021-07-25 00:00:00 2021-07-25 00:00:00 Patient Secure Msg Doctor Unassigned, [address] [facility] 1.2840.114 350.1.13.10 4.2.7.2.686 [id number] [facility] 2021-07-21 11:45:00 2021-07-21 23:59:00 Hospital Encounter KellyjonnyTracy larsen [facility] 1.2840.114 350.1.13.10 4.2.7.2.686 [id number] [facility] 2021-07-21 09:17:42 2021-07-21 09:57:42 Office Visit Tracy Harris [facility] 1.2840.114 350.1.13.10 4.2.7.2.686 [id number] [facility] 2021-07-21 09:40:00 2021-07-21 09:40:00 Outpatient R TRACY HARRIS [facility] [id number] [facility] 2021-07-21 08:07:36 2021-07-21 08:22:36 Thoracic Medicine Physician Visit Pob, Adc Lab Main [place], [facility] Professio nal Building 1.2.840.114 350.1.13.10 4.2.7.2.686 [id number] [facility] 2021-07-19 00:00:00 2021-07-19 00:00:00 Patient Secure Msg Doctor Unassigned, [address] [facility] 1.2.840.114 350.1.13.10 4.2.7.2.686 [id number] [facility] 2021-07-14 14:02:17 2021-07-14 16:02:16 Office Visit Tracy Harris [facility] 1.2.840.114 350.1.13.10 4.2.7.2.686 [id number] [facility] 2021-07-14 15:45:18 2021-07-14 15:45:27 Office Visit Tracy Harris [facility] 1.2.840.114 350.1.13.10 4.2.7.2.686 [id number] [facility] 2021-07-14 14:00:00 2021-07-14 14:00:00 Outpatient R TRACY HARRIS [facility] [id number] [facility] 2021-07-14 00:00:00 2021-07-14 00:00:00 Telephone Tracy Harris [facility] 1.2.840.114 350.1.13.10 4.2.7.2.686 [id number] [facility] 2021-07-05 13:17:00 2021-07-05 17:36:00 Emergency Cresencio Bush [facility] 1.2.840.114 350.1.13.10 4.2.7.2.686 [id number] [facility] 2021-07-05 13:17:00 2021-07-05 13:17:00 Emergency X CRESENCIO BUSH [facility] ERT [id number] [facility] Results Test Description Test Time Test Comments Results Result Co mments Source COMPREHENSIVE METABOLIC [id number] 09:17:00* Test Item Value Reference Range Interpretation [...] ALKP) 73 U/L 50-136 N CBC W/AUTO [id number] 09:01:00* Test Item Value Reference Range Interpretation [...] (shoaib t code = RBCM) NO NORMAL [id number] 05:34:00* Test Item Value Reference Range Interpretation Comme nts GLUBED (test code = GLUBED) 148 mg/dL 70-105 H Performed by cer tified telex operator at [facility] [id number] 00:08:00* Test Item Value Reference Range Interpretation Comme nts GLUBED (test code = GLUBED) 119 mg/dL 70-105 H Performed by cer tified telex operator at [facility] COMPREHENSIVE METABOLIC [id number] 12:30:00* Test Item Value Reference Range Interpretation [...] code = ALKP) 57 U/L 50-136 N [id number] 12:30:00* Test Item Value Reference Range Interpretation Comme nts GLYCOSYLATED HEMOGLOBIN (HA1C) (test code = GLYHGB) 5.8 % <5.7 H SUGGESTED D IAGNOSIS INTERPRETATION Normal: <5.7% Prediabetes: 5.7 - 6.4% Diabetic: >/= 6.5%* DUE TO METHOD REVISION, REFERENCE RANGE HAS BEEN UPDATED * ESTIMATED AVERAGE GLUCOSE (test code = EAG) 120 MG/DL <126 CBC W/AUTO [id number] 05:49:00* Test Item Value Reference Range Interpretation [...] code = RBCM) NO NORMAL ARTERIAL BLOOD [id number] 17:37:00* Test Item Value Reference Range Interpretation [...] FIO2A) 21.00 % PaO2/FiO2 (test code = UBV6UDR4) 360.00 mm/Hg ABG VENT MODE (test code [...] METHGB) 1.10 % 0.0-3.0 N COMPREHENSIVE METABOLIC [id number] 17:33:00* Test Item Value Reference Range Interpretation [...] = ALKP) 70 U/L 50-136 N LACTIC [id number] 17:16:00* Test Item Value Reference Range Interpretation Comme nts LACTIC ACID (test code = LACT) 1.8 mmol/l 0.4-2.0 N LACTIC [id number] 16:20:00* Test Item Value Reference Range Interpretation Comme nts LACTIC ACID (test code = LACT) 2.5 mmol/l 0.4-2.0 H UA RFLX MICROSCOPIC [id number] 15:54:00* Test Item Value Reference Range Interpretation [...] Dysuria/FrequencyURINE SOURCE: CLEAN CATCH URINE COMPREHENSIVE METABOLIC [id number] 15:25:00* Test Item Value Reference Range Interpretation [...] code = ALKP) 73 U/L 50-136 N [id number] 15:25:00* Test Item Value Reference Range Interpretation Comme nts LIPASE (test code = LIP) 27 U/L 13-75 N TROPI (HIGH SENSITIVITY)2024-07-31 15:25:00* Test Item Value Reference Range Interpretation Comme [facility] TROPI (HIGH SENSITIVITY) (test code = TROPI) [...] - 78 : >78 --------- CBC W/AUTO [id number] 15:05:00* Test Item Value Reference Range Interpretation [...] t code = RBCM) NO NORMAL urinalysis, [id number] 12:40:14* Test Item Value Reference Range Interpretation Comme nts Leukocytes (test code = Leukocytes) 1+ Nitrite (test code = Nitrite) negative Urobilinogen (test code = Urobilinogen) Normal Protein (test code = Protein) 2+ pH (test code = pH) 6.0 Blood (test code = Blood) Non-Hemolyzed: Trace Specific Newman (test code = Specific Newman) 1.010 Ketone (test code = Ketone) Negative Bilirubin (test code = Bilirubin) Negative Glucose (test code = Glucose) Negative Appearance (test code = Appearance) Clear Color (test code = Color) Yellow [facility], [id number] 15:24:55* Test Item Value Reference Range Interpretation Comme nts Leukocytes (test code = Leukocytes) Negative Nitrite (test code = Nitrite) negative Urobilinogen (test code = Urobilinogen) Normal Protein (test code = Protein) 1+ pH (test code = pH) 6.5 Blood (test code = Blood) Non-Hemolyzed: Trace Specific Newman (test code = Specific Newman) 1.010 Ketone (test code = Ketone) Negative Bilirubin (test code = Bilirubin) Negative Glucose (test code = Glucose) Negative Appearance (test code = Appearance) Clear Color (test code = Color) Yellow [facility] MedicalBacteria identified in Urine by [id number] 00:00:00* Test Item Value Reference Range Interpretation Comme nts culture, urine (test code = culture, urine) SEE BELOW no growth A [facility]inalysis complete W Reflex Culture panel - [id number] 00:00:00* Test Item Value Reference Range Interpretation [...] code = WBC, urine) >100 0-5 H [facility], [id number] 13:29:00* Test Item Value Reference Range Interpretation Comme nts Leukocytes (test code = Leukocytes) 2+ Nitrite (test code = Nitrite) negative Urobilinogen (test code = Urobilinogen) Normal Protein (test code = Protein) 1+ pH (test code = pH) 6.0 Blood (test code = Blood) Non-Hemolyzed: Moderate Specific Newman (test code = Specific Newman) 1.015 Ketone (test code = Ketone) Negative Bilirubin (test code = Bilirubin) Negative Glucose (test code = Glucose) Negative Appearance (test code = Appearance) Clear Color (test code = Color) Yellow [facility] MedicalGLUCOSE BEDSIDE [id number] 07:37:00* Test Item Value Reference Range Interpretation Comme nts GLUCOSE BEDSIDE TESTING (shoaib t code = GLUBED) 110 mg/dL 70-110 N CBC W/AUTO [id number] 05:14:00* Test Item Value Reference Range Interpretation [...] c ode = MDIFF) NO DIFF/SCN CRITERIA [id number] 05:12:00* Test Item Value Reference Range Interpretation Comme nts MAGNESIUM (test code = MAG) 1.9 MG/DL 1.8-2.4 N Comment: my orderGLUCOSE BEDSIDE [id number] 16:18:00* Test Item Value Reference Range Interpretation Comme nts GLUCOSE BEDSIDE TESTING (shoaib t code = GLUBED) 230 mg/dL 70-110 H GLUCOSE BEDSIDE [id number] 15:39:00* Test Item Value Reference Range Interpretation Comme nts GLUCOSE BEDSIDE TESTING (shoaib t code = GLUBED) 172 mg/dL 70-110 H GLUCOSE BEDSIDE [id number] 12:15:00* Test Item Value Reference Range Interpretation Comme nts GLUCOSE BEDSIDE TESTING (shoaib t code = GLUBED) 166 mg/dL 70-110 H - XR CHEST 1 [id number] 14:39:00 [facility] : 1940 Sex: FName: NITA MAN [facility] : 1940 Age/S: 82 / F [address] Unit #: [id number] Loc: [place] [address] Phys: Tha Mc MD Acct: [id number] Dis Date: Status: PRE [facility] PHONE #: [phone] Exam Date: 05/23/2023 1421 FAX #: Reason: PRE OP EXAMS: CPT: [id number] XR CHEST 1 V 00061 Fluoro Time: DAP (Gy m2): Air Kerma (mGy): S 17 TIME OF STUDY: 05/23/2023 9:00 AM REASON FOR EXAM: PRE OP COMPARISON: July 24, 2022. FINDINGS: AP view of the chest was obtained. Lungs: Normallung volume. No mass, or consolidation. Normal pulmonary vascularity. Pleura: No pleural effusion or pneumothorax. Heart and Mediastinum: Normal cardiomediastinal silhouette and calcific atherosclerosis. Surgical clips are present in the left chest. Bones: Normal regional skeletal structures. IMPRESSION: 1. No acute cardiopulmonary process. at 1439 Reported and signed by: Sunny Alamo M.D. CC: Jose Guadalupe Orr MD; Vero Ortega MD; Tha Mc MD PAGE 1 Signed Report Name: NITA MAN [facility] : 1940 Age/S: 82 / F [id number] Unit #: [id number] Loc: [place] [address] Phys: Tha Mc MD Acct: [id number] Dis Date: Status: PRE SDC PHONE #: [phone] Exam Date: 05/23/2023 1421 FAX #: Reason: PRE OP EXAMS: CPT: [id number] XR CHEST 1 V 88926 Fluoro Time: DAP (Gy m2): Air Kerma (mGy): (Continued) Technologist: Fatimah Spear Trnscb Date/Time: 05/23/2023 (1439) [email or web address] Orig Print D/T: S: 05/23/2023 (7660) PAGE 2 Signed ReportTHROMBOPLASTIN TIME [id number] 14:03:00* Test Item Value Reference Range Interpretation Comme nts THROMBOPLASTIN TIME PARTIAL (test code = PTT) 34.0 SECONDS 26-35 N PROTHROMBIN [id number] 14:03:00* Test Item Value Reference Range Interpretation [...] Myocardial Infarction (to prevent recurrent infarct). URINALYSIS [id number] 13:52:00* Test Item Value Reference Range Interpretation [...] A Urine Specimen Type: Clean CatchBASIC METABOLIC [id number] 13:52:00* Test Item Value Reference Range Interpretation [...] CA) 8.4 MG/DL 8.5-10.1 L CBC W/AUTO [id number] 13:38:00* Test Item Value Reference Range Interpretation [...] c ode = MDIFF) NO DIFF/SCN CRITERIA [id number] 15:01:00* Test Item Value Reference Range Interpretation Comme nts SURGICAL (test code = SR) -----RUN DATE: 07/25/22 [facility] - LAB PAGE 1 RUN TIME: 1501 Specimen Inquiry RUN USER: INTERFACE -----PATIENT: NITA MAN LOC: [facility] U #: [id number] AGE/SX: 81/F ROOM: [facility] RE07/23/22JOSE DR: Jai Parsons : [birth year] BED: 1 DIS: 07/24/22 STATUS: DIS IN TLOC: ----- SPEC #: [id number] RECD: 07/23/22-1113 STATUS: DOTTIE GALEANO #: [id number] DIEGO: 07/23/22- SUBM DR: Jai Parsons MD ENTERED: 07/23/22 SP TYPE: SURGICAL OTHR DR: Jose Guadalupe Orr MD, Anas MDORDERED: 12433, 37685, ANATOMIC SPEC COPIES TO: Jai Parsons MD [address] [facility] [facility] [address] [place] [address] Jose Guadalupe Orr MD [address] [id number] Kimber Bobby MD [address] [place] [address] PROCEDURES: 71378 (07/25/22-1455) 04896 (07/23/22) TISSUES: A. CAROTID PLAQUE WITH DECAL - RIGHT FINAL DIAGNOSIS Right carotid plaque, excision:Plaque tissue with calcification and degenerative changes. GROSS DESCRIPTION The specimen received in formalin in a container labeled with the patient's name anddesignated right carotid plaque consists of multiple fragments of soft tissue which inaggregate measures 2.2 cm in greatest dimension. Transitional Care Liaison sections are submitted in1 cassette after decalcification. Technical component performed at [facility],[address] [place] [address], [place] [address] Unless gross only, the diagnosis is based upon microscopic examination.Immunohistochemis try: This test was developed and its performance characteristics CONTINUED ON NEXT PAGE -----RUN DATE: 07/25/22 [place] - LAB PAGE 2 RUN TIME: 1501 Specimen Inquiry RUN USER: INTERFACE -----SPEC #: [id number] PATIENT: NITA MAN #[id number] (Continued) GROSS DESCRIPTION (Continued) determined by this [...] 1501 ----- END OF REPORT BASIC METABOLIC [id number] 13:53:00* Test Item Value Reference Range Interpretation [...] = CA) 8.1 mg/dL 8.0-10.5 N GLUCOSE [id number] 12:13:00* Test Item Value Reference Range Interpretation Comme nts GLUCOSE BEDSIDE (test code = GLUBED) 155 MG/DL 70-110 H Performed by cer tified telex operator at [facility] HGBA1C%2022-07-24 04:44:00* Test Item Value Reference Range Interpretation Comme nts HGBA1C% (test code = HGBA1C%) 5.5 %A1C 4.8-6.0 N BASIC METABOLIC [id number] 04:32:00* Test Item Value Reference Range Interpretation [...] code = CA) 8.3 mg/dL 8.0-10.5 N [id number] 04:32:00* Test Item Value Reference Range Interpretation Comme nts PHOSPHOROUS (test code = PHOS) 4.2 MG/DL 2.5-4.9 N [id number] 04:32:00* Test Item Value Reference Range Interpretation Comme nts MAGNESIUM (test code = MAG) 1.46 mg/dL 1.80-2.40 L CALCIUM [id number] 04:32:00* Test Item Value Reference Range Interpretation Comme nts CALCIUM IONIZED (test code = ARIANA) 1.11 MMOL/L 1.09-1.30 N CBC W/AUTO [id number] 04:22:00* Test Item Value Reference Range Interpretation [...] = MDIFF) NO - XR CHEST 1 [id number] 00:00:00 [facility] 1940 Sex: F FAX: Yana Kendall Amber: St: [facility] FAX: Jai Portillo [phone] Name: NITA MAN [facility] : 1940 Age/S: 81/F [address] [place] [address] Unit #: [id number] Loc: G.[address] [place] [address] Phys: KendallNateYanadebbie BYRD Acct: [id number] Dis Date: Status: ADM IN PHONE #: [phone] Exam Date: 07/24/2022619 FAX #: [phone] Reason: Post op EXAMS: CPT CODE: [id number] XR CHEST 1 V 51142 PROCEDURE INFORMATION: Exam: XR Chest Exam date [...] at 0827 Reported and signed by: Jimena Feng M.D. CC: Yana Kendall; Jai Parsons MD Technologist: Heidi Dye RT(R) Trnscrd Date/Time/By: 07/24/2022 (826): By: [email or web address] Orig Print D/T: S: 07/24/2022 (826) PAGE 1 Signed ReportGLUCOSE [id number] 20:16:00* Test Item Value Reference Range Interpretation Comme nts GLUCOSE BEDSIDE (test code = GLUBED) 186 MG/DL 70-110 H Performed by cer tified telex operator at [facility] GLUCOSE [id number] 11:56:00* Test Item Value Reference Range Interpretation Comme nts GLUCOSE BEDSIDE (test code = GLUBED) 149 MG/DL 70-110 H Performed by cer tified telex operator at [facility] BASIC METABOLIC [id number] 11:50:00* Test Item Value Reference Range Interpretation [...] = CA) 8.7 mg/dL 8.0-10.5 N HGB [id number] 11:26:00* Test Item Value Reference Range Interpretation Comme nts HEMOGLOBIN (test code = HGB) 10.9 g/dL 11.0-15.0 L HEMATOCRIT (test code = HCT) 31.7 % 33.0-45.0 L GLUCOSE [id number] 09:08:00* Test Item Value Reference Range Interpretation Comme nts GLUCOSE BEDSIDE (test code = GLUBED) 145 MG/DL 70-110 H Performed by cer tified telex operator at [facility] IEK-[id number] 07:58:00* Test Item Value Reference Range Interpretation Comme [facility] ACT-ISTAT (test code = ACTI) 312 SEC 74-137 H Performed by cer tified telex operator at [facility] UA RFLX MICR CULT IF [id number] 14:59:00* Test Item Value Reference Range Interpretation [...] srcSpecimen Description: CLEAN CATCHCOVID 19 Asymptomatic IH [id number] 14:53:00* Test Item Value Reference Range Interpretation [...] HGBA1C%) 5.6 %A1C 4.8-6.0 N COMPREHENSIVE METABOLIC [id number] 14:38:00* Test Item Value Reference Range Interpretation [...] = ALKP) 69 IUnit/L 20-125 N PROTHROMBIN [id number] 14:34:00* Test Item Value Reference Range Interpretation [...] Infarction (to prevent recurrent infarct). THROMBOPLASTIN TIME [id number] 14:34:00* Test Item Value Reference Range Interpretation Comme nts THROMBOPLASTIN TIME PARTIAL (test code = PTT) 29.3 Seconds 25.0-39.5 N Therapeutic Rang e: 50.4 - 88.3 Seconds Effective 03/17/2019 CBC W/AUTO [id number] 14:26:00* Test Item Value Reference Range Interpretation [...] = MDIFF) NO - XR CHEST 2 [id number] 00:00:00 [facility] 1940 Sex: F FAX: Jai Portillo [phone] Amber: [address] St: PRE Name: NITA MAN [facility] : 1940 Age/S: 81/F [address] [place] [address] Unit #: [id number] [place]: [place] [address] Phys: Jai Parsons MD Acct: [id number] Dis Date: Status: PRE SDC PHONE #: [phone] Exam Date: 07/20/2022 1354 FAX #: [phone] Reason: PREOP EXAMS: CPT CODE: [id number] XR CHEST 2 V 65002 PROCEDURE INFORMATION: Exam: XR Chest Exam date [...] Thoracic spurring. IMPRESSION: No acute findings. at 7362 Reported and signed by: Dean Arriaga M.D. CC: Jai Parsons MDTechnologist: RT Alok(Ambrocio) Trnscrd Date/Time/By: 07/20/2022 (9418) : By: [email or web address] Orig Print D/T: S: 07/20/2022 (5945) PAGE 1 Signed Report
[2024-12-12] MEDS ORDERED: NA CHLORIDE 0.9% 1,000 ML ONE ×2 (07:26→08:58)
[2024-12-12 08:08] LABS: Absolute Lymphocytes (CBC) 0.2 K/uL (0.7-4.9); Absolute Monocytes 0.5 K/uL (0.1-1.3); Absolute Neutrophil 4.1 K/uL (1.8-8.0); Basophils % 0.6 % (0-1.3); Eosinophils % 0.5 % (0-4.4); Hematocrit 33.5 % (36.0-45.0); Hemoglobin 11.5 g/dL (12.0-15.0); Lymphocytes % 4.5 % (15.3-44.8); MCH 31.2 pg (27.0-35.0); MCHC 34.3 g/dL (32.0-36.0); MCV 90.8 fL (80-100); MPV 8.9 fL (7.6-11.3); Neutrophils % 84.4 % (41.7-73.7); Platelets 156 thou/uL (152-406); RBC Red Blood Cell Count 3.69 M/uL (3.86-4.86); Red Cell Distribution Width 14.1 % (12.1-15.2)
[2024-12-12 08:09] LABS: PT Prothrombin Time 12.5 SECONDS (9.4-12.5); Protime INR 1.12
[2024-12-12 08:16] LABS: SARS-CoV-2 Antigen CONTROL BLUE LINE VIS/BG OK; SARS-CoV-2 Antigen Rapid Res Negative (Negative)
[2024-12-12 08:17] LABS: ALT/SGPT 15 U/L (13-56); Albumin 3.4 g/dL (3.4-5.0); Alkaline Phosphatase 61 U/L (45-117); Anion Gap 12.5 mEq/L (5.0-15.0); BUN Blood Urea Nitrogen 22 mg/dL (7-18); Bicarbonate 22 mEq/L (21-32); Bilirubin Total 0.3 mg/dL (0.2-1.0); Globulin 3.4 g/dL (2.3-3.5); Glomerular Filtration Rate 31 ml/min (=/>90); Glucose Level 195 mg/dL (74-106); Magnesium 1.7 mg/dL (1.6-2.4); NT PRO-BNP 982 pg/mL (<450); Potassium 3.5 mEq/L (3.5-5.1); Protein, Total 6.8 g/dL (6.4-8.2); Sodium Level 138 mEq/L (136-145); Troponin High Sensitivity 35.2 pg/mL (<58.9)
--- NOTE | 2024-12-12 08:22 | RAD REPORT ---
EXAM: CT Head Brain Wo Cont HISTORY: CONFUSED COMPARISON: 11/01/2024 TECHNIQUE: Multiple contiguous axial images were obtained for a CT of the brain without contrast. Sag ittal and coronal reformats were performed. One or more of the following dose reduction techniques were used: Automated exposure control, adjus tment of the mA and kV according to patient size, and iterative reconstruction. Unless otherwise specified, incidental findings do not require dedicated imaging follow-up. FINDINGS: No evidence of hydrocephalus, intracranial hemorrhage, or extra-axial fluid collection. The brain is normal in morphology. Partially empty sella again seen. The calvarium is intact. The visualized paranasal sinuses and mastoid air cells are essentially clear . IMPRESSION: No evidence of acute intracranial abnormality.
[2024-12-12 08:23] LABS: AST/SGOT < 10 U/L (15-37); Bilirubin Direct < 0.2 mg/dL (0-0.2); Bilirubin Indirect, Calculated 0.1 mg/dL (0.2-0.8)
--- NOTE | 2024-12-12 08:23 | RAD REPORT ---
EXAMINATION: ONE VIEW CHEST XR CLINICAL INDICATION: Female, 84 years old.,COUGH TECHNIQUE: Frontal chest projection is submitted. Examination is limited by patient positioning and t echnique. COMPARISON: 11/01/2024 FINDINGS: The lungs are somewhat hypoinflated with stable mild emphysematous changes. No new focal airspace opa city. No pneumothorax or sizable effusion. The heart is normal in size. Mediastinal contours are unremarkable. IMPRESSION: No acute intrathoracic abnormalities.
[2024-12-12 08:43] LABS: Specific Gravity 1.013 (1.005-1.030); Sqamous Epithelial None Seen /HPF (None Seen); Transitional Epithelial <5 /HPF (None Seen); Urine Bacteria None Seen /HPF (<20); Urine Bilirubin NEGATIVE (Negative); Urine Blood 1+ (Negative); Urine Clarity Extremely Turbid (Clear); Urine Color Light-Yellow (Yellow); Urine Culture Reflex Order REFLEXED; Urine Glucose NEGATIVE (Negative); Urine Ketones NEGATIVE (Negative); Urine Micro Reflex YN NO BILL MICROSCOPIC; Urine Mucus Slight /HPF (None Seen); Urine Nitrite NEGATIVE (Negative); Urine Protein 1+ (Negative); Urine RBC 21-50 /HPF (None Seen); Urine Urobilinogen Normal (Normal); Urine WBC >50 /HPF (<5); Urine WBC Clump Rare /HPF (None Seen)
--- NOTE | 2024-12-12 08:54 | ER ---
Nurse's Notes [facility] Name: Madison Cerrato Age: 84 yrs Sex: Female : 1940 Arrival Date: 12/12/2024 Time: 06:51 Bed 13 Private MD: Diagnosis: Urosepsis, UTI, dehydration Presentation: 12/12 07:07 Chief complaint: Patient's son or daughter states: think she has a bladder infection, vc1 running a fever, confused, weak, not making sense. Coronavirus screen: Client denies travel out of the [place] in the last 14 days. At this time, the client does not indicate any symptoms associated with coronavirus-19. Ebola Screen: Patient negative for fever greater than or equal to 101.5 degrees Fahrenheit, and additional compatible Ebola Virus Disease symptoms Patient denies exposure to infectious person. Patient denies travel to an Ebola-affected area in the 21 days before illness onset. No symptoms or risks identified at this time. Initial Sepsis Screen: Does the patient meet any 2 criteria? RR > 20 per min. HR > 90 bpm. Yes Does the patient have a suspected source of infection? No. Patient's initial sepsis screen is negative. Risk Assessment: Do you want to hurt yourself or someone else? Patient reports no desire to harm self or others. Onset of symptoms was December 12, 2024. 07:07 Method Of Arrival: Ambulatory vc1 07:07 Acuity: JOHN 3 vc1 Triage Assessment: 07:14 General: Appears in no apparent distress. uncomfortable, Behavior is calm, cooperative, vc1 appropriate for age. General: Reports fever for. Pain: Denies pain. EENT: No deficits noted. No signs and/or symptoms were reported regarding the EENT system. Neuro: Level of Consciousness is awake, obeys commands, Oriented to person, place, situation. Neuro: Reports weakness. Cardiovascular: Capillary refill < 3 seconds Patient's skin is warm and dry. Respiratory: Airway is patent Respiratory effort is even, unlabored, Respiratory pattern is regular, symmetrical, Breath sounds with wheezes bilaterally. GI: No deficits noted. No signs and/or symptoms were reported involving the gastrointestinal system. : Reports inability to void. Derm: Skin is fragile, Skin is dry, Skin is normal, Skin temperature is hot. Musculoskeletal: Circulation, motion, and sensation intact. Range of motion: intact in all extremities. Historical: - Allergies: 07:09 Codeine; vc1 - Home Meds: 07:09 trazodone 50 mg Oral tab every day at bedtime [Active]; sertraline 25 mg oral tablet vc1 daily [Active]; risperidone 1 mg oral tablet daily [Active]; pregabalin 150 mg Oral cap 2 times per day [Active]; pantoprazole 20 mg oral tablet, delayed release (enteric coated) daily [Active]; losartan-hydrochlorothiazide 50-12.5 mg oral tablet daily [Active]; losartan 50 mg oral tablet nightly [Active]; isosorbide mononitrate 60 mg Oral Tb24 daily [Active]; atorvastatin 20 mg Oral tab 1 tab once daily [Active]; anastrozole 1 mg oral tablet daily [Active]; montelukast 10 mg oral tablet daily [Active]; - PMHx: 07:09 Alzheimer's disease; kidney disease; Hypertensive disorder; Hypercholesterolemia; vc1 diabetes mellitus; Dementia; CVA; Congestive heart failure; - PSHx: 07:09 Cholecystectomy; knee; vc1 - Immunization history:: Client reports receiving the 2nd dose of the Covid vaccine, Flu vaccine is not up to date. - Infectious Disease History:: Denies. - Social history:: Smoking status: Patient denies any tobacco usage or history of. Screenin:00 [facility] ED Fall Risk Assessment (Adult) History of falling in the last 3 months, rs5 including since admission No falls in past 3 months (0 pts) Confusion or Disorientation Yes (5 pts) Intoxicated or Sedated No (0 pts) Impaired Gait Yes (1 pt) Mobility Assist Device Used Yes (1 pt) Altered Elimination No (0 pt) Score/Fall Risk Level 3 or more points = High Risk Maintained a safe environment, Educated pt \T\ family on fall prevention, incl call for assistance when getting out of bed, Provided non-skid footwear, Hourly rounding (assess needs \T\ fall precautionary measures) done, Utilized family, sitter, or virtual manager it training as indicated. Abuse screen: Denies threats or abuse. Nutritional screening: No deficits noted. Tuberculosis screening: No symptoms or risk factors identified. Assessment: 07:00 Reassessment:. General: Appears in no apparent distress. comfortable, Behavior is calm, rs5 cooperative. Pain: Denies pain. Neuro: Level of Consciousness is awake, alert, obeys commands, Oriented to person, place, situation. Cardiovascular: Patient's skin is warm and dry. Respiratory: Airway is patent Respiratory effort is even, unlabored, Respiratory pattern is regular, symmetrical. GI: Abdomen is round non-distended, Abd is soft and non tender X 4 quads. : Parent/caregiver report the patient having urinary frequency. EENT: No signs and/or symptoms were reported regarding the EENT system. Derm: Skin is intact, Skin is pink, warm \T\ dry. Musculoskeletal: Range of motion: intact in all extremities. 08:05 Reassessment: Patient and/or family updated on plan of care and expected duration. Pain rs5 level reassessed. Patient is alert, oriented x 3, equal unlabored respirations, skin warm/dry/pink. 08:40 Reassessment: Patient and/or family updated on plan of care and expected duration. Pain rs5 level reassessed. Patient is alert, oriented x 3, equal unlabored respirations, skin warm/dry/pink. 09:18 Reassessment: Patient and/or family updated on plan of care and expected duration. Pain rs5 level reassessed. Patient is alert, oriented x 3, equal unlabored respirations, skin warm/dry/pink. 10:22 Reassessment: Patient and/or family updated on plan of care and expected duration. Pain rs5 level reassessed. Patient is alert, oriented x 3, equal unlabored respirations, skin warm/dry/pink. 11:38 Reassessment: Patient and/or family updated on plan of care and expected duration. Pain rs5 level reassessed. Patient is alert, oriented x 3, equal unlabored respirations, skin warm/dry/pink. 13:01 Reassessment: Patient and/or family updated on plan of care and expected duration. Pain rs5 level reassessed. Patient is alert, oriented x 3, equal unlabored respirations, skin warm/dry/pink. 14:18 Reassessment: Patient and/or family updated on plan of care and expected duration. Pain rs5 level reassessed. Patient is alert, oriented x 3, equal unlabored respirations, skin warm/dry/pink. 14:40 Reassessment: Patient and/or family updated on plan of care and expected duration. Pain rs5 level reassessed. Patient is alert, oriented x 3, equal unlabored respirations, skin warm/dry/pink. Vital Signs: 07:07 BP 150 / 61; Pulse 112; Resp 24; Temp 99.3; Pulse Ox 94% ; vc1 08:24 BP 157 / 53; Pulse 87; Resp 19; Pulse Ox 95% on R/A; rs5 09:44 BP 155 / 54; Pulse 80; Resp 17; Pulse Ox 97% ; rs5 14:41 BP 162 / 57; Pulse 74; Resp 17; Temp 98; Pulse Ox 97% ; rs5 ED Course: 06:52 Patient arrived in ED. [id number] 06:58 Scout Regalado MD is Attending Physician. sp3 07:09 Triage completed. vc1 07:14 Arm band placed on right wrist. vc1 07:15 Patient has correct armband on for positive identification. Bed in low position. Call vc1 light in reach. Side rails up X2. Adult w/ patient. Pulse ox on. NIBP on. 07:15 No provider procedures requiring assistance completed. Inserted saline lock: 22 gauge rs5 in right hand, using aseptic technique. 07:24 Frank Wade, RN is Primary Nurse. rs5 07:35 XRAY Chest (1 view) In Process Unspecified. EDMS 07:38 CT Head Brain wo Cont In Process Unspecified. EDMS 08:54 Demond Monreal is Hospitalizing Provider. sp3 12:05 Jose Guadalupe Orr MD is Hospitalizing Provider. sp3 15:00 Patient admitted, IV remains in place. rs5 Administered Medications: 08:02 Drug: NS 0.9% IV 1000 ml IV at 1000 ml once; to be given as a bolus over 60 minutes rs5 Route: IV; Rate: 1000 ml; Site: right hand; 09:01 Follow up: Response: No adverse reaction; IV Status: Completed infusion; IV Intake: rs5 999ml 09:14 Drug: Cefepime IVPB 1 grams IVPB at 200 ml/hr once over 30 mins; (mix in NS 100 mL) rs5 Route: IVPB; Rate: 200 ml/hr; Infused Over: 30 mins; Site: right hand; 09:45 Follow up: IV Status: Completed infusion; IV Intake: 100ml rs5 09:15 Drug: NS 0.9% IV 1000 ml IV at 1000 ml once; to be given as a bolus over 60 minutes rs5 Route: IV; Rate: 1000 ml; Site: right hand; 10:10 Follow up: Response: No adverse reaction; IV Status: Completed infusion; IV Intake: rs5 999ml Medication: 08:39 VIS not applicable for this client. rs5 Intake: 09:01 IV: 999ml; Total: 999ml. rs5 09:45 IV: 100ml; Total: 1099ml. rs5 10:10 IV: 999ml; Total: 2098ml. rs5 Outcome: 08:54 Decision to Hospitalize by Provider. sp3 15:00 Admitted to Med/surg rs5 15:00 Condition: stable rs5 15:00 Instructed on the need for admit, Demonstrated understanding of instructions, 15:08 Patient left the ED. rs5 Signatures: Dispatcher [employer] EDJuliane Spain RN RN iw Scout Regalado MD MD sp3 Ellen [id number] Lisa Thomas RN RN vc1 Frank Wade RN RN rs5 Corrections: (The following items were deleted from the chart) 08:38 07:15 Patient has correct armband on for positive identification. Bed in low position. rs5 Call light in reach. vc1 13:32 08:24 BP 154 / 54; Pulse 87bpm; Resp 19bpm; Pulse Ox 95% RA; iw rs5 19:22 13:41 BP 162 / 57; Pulse 74bpm; Resp 17bpm; Pulse Ox 97%; Temp 98F; rs5 rs5
--- NOTE | 2024-12-12 08:54 | EDPHYS ---
Physician Documentation [facility] Name: Madison Cerrato Age: 84 yrs Sex: Female : 1940 Arrival Date: 12/12/2024 Time: 06:51 Bed 13 Private MD: ED Physician Scout Regalado HPI: 12/12 07:22 This 84 yrs old Female presents to ER via Ambulatory with complaints of Fever, sp3 Cough, General Weakness, CONFUSION/ALTERED. 07:22 84-year-old female with history of Alzheimer's, kidney disease, hypertension, sp3 hyperlipidemia, diabetes, prior UTI now presents to the ED with chief complaint generalized weakness, subjective fever and confusion as per family. Family also states that patient has some slurred speech that they noticed this morning upon awakening. Unknown if it was there yesterday or not. In the past when this has happened she has had a UTI No significant cough reported. Patient currently denies headache, chest pain, shortness of breath, abdominal pain, or any other signs or symptoms on limited ROS at this time. ROS, history and physical limited secondary to Alzheimer's. Most history from family.. Historical: - Allergies: 07:09 Codeine; vc1 - Home Meds: 07:09 trazodone 50 mg Oral tab every day at bedtime [Active]; sertraline 25 mg oral tablet vc1 daily [Active]; risperidone 1 mg oral tablet daily [Active]; pregabalin 150 mg Oral cap 2 times per day [Active]; pantoprazole 20 mg oral tablet, delayed release (enteric coated) daily [Active]; losartan-hydrochlorothiazide 50-12.5 mg oral tablet daily [Active]; losartan 50 mg oral tablet nightly [Active]; isosorbide mononitrate 60 mg Oral Tb24 daily [Active]; atorvastatin 20 mg Oral tab 1 tab once daily [Active]; anastrozole 1 mg oral tablet daily [Active]; montelukast 10 mg oral tablet daily [Active]; - PMHx: 07:09 Alzheimer's disease; kidney disease; Hypertensive disorder; Hypercholesterolemia; vc1 diabetes mellitus; Dementia; CVA; Congestive heart failure; - PSHx: 07:09 Cholecystectomy; knee; vc1 - Immunization history:: Client reports receiving the 2nd dose of the Covid vaccine, Flu vaccine is not up to date. - Infectious Disease History:: Denies. - Social history:: Smoking status: Patient denies any tobacco usage or history of. ROS: 07:23 Constitutional: Negative for fever, chills, and weight loss, Eyes: Negative for injury, sp3 pain, redness, and discharge, Neck: Negative for injury, pain, and swelling, Cardiovascular: Negative for chest pain, palpitations, and edema, Respiratory: Negative for shortness of breath, cough, wheezing, and pleuritic chest pain, Back: Negative for injury and pain, MS/Extremity: Negative for injury and deformity, Skin: Negative for injury, rash, and discoloration, Allergy/Immunology: Negative for hives, rash, and allergies, 07:23 All other systems are negative, Exam: 07:23 Constitutional: This is a well developed, well nourished patient who is awake, alert, sp3 and in no acute distress. Head/Face: Normocephalic, atraumatic. ENT: Nares patent. No nasal discharge, no septal abnormalities noted. External auditory canals are clear. Oropharynx with no redness, swelling, or masses, exudates, or evidence of obstruction, uvula midline. Mucous membranes moist. Neck: Trachea midline, no thyromegaly or masses palpated, and no cervical lymphadenopathy. Supple, full range of motion without nuchal rigidity, or vertebral point tenderness. No Meningismus. Chest/axilla: Normal chest wall appearance and motion. Nontender with no deformity. No lesions are appreciated. Respiratory: Lungs have equal breath sounds bilaterally, clear to auscultation and percussion. No rales, rhonchi or wheezes noted. No increased work of breathing, no retractions or nasal flaring. Abdomen/GI: Soft, non-tender, with normal bowel sounds. No distension or tympany. No guarding or rebound. No evidence of tenderness throughout. Back: No spinal tenderness. No costovertebral tenderness. Full range of motion. Skin: Warm, dry with normal turgor. Normal color with no rashes, no lesions, and no evidence of cellulitis. MS/ Extremity: Pulses equal, no cyanosis. Neurovascular intact. Full, normal range of motion. 07:23 Cardiovascular: Rate: tachycardic, 07:23 Neuro: No focal deficits however speech is very difficult to understand. Unknown baseline. Patient appears oriented person and place but not time., Vital Signs: 07:07 BP 150 / 61; Pulse 112; Resp 24; Temp 99.3; Pulse Ox 94% ; vc1 08:24 BP 157 / 53; Pulse 87; Resp 19; Pulse Ox 95% on R/A; rs5 09:44 BP 155 / 54; Pulse 80; Resp 17; Pulse Ox 97% ; rs5 14:41 BP 162 / 57; Pulse 74; Resp 17; Temp 98; Pulse Ox 97% ; rs5 MDM: 06:58 Medical Screening Exam initiated sp3 07:24 Data reviewed: vital signs, nurses notes, old medical records, lab test result(s), EKG, sp3 radiologic studies. ED course: 84-year-old female with generalized weakness, subjective fever and tachycardia. Code sepsis called from triage. I am also concerned about potential neurological insult. Stat head CT ordered immediately upon my evaluation. Differential diagnosis includes UTI, electrolyte abnormality, viral infection, neurological insult including CVA, intracranial hemorrhage, or other intracranial pathology, among others. Workup will include CT scan of the head, chest x-ray, general labs, UTI, cultures and general supportive care. Instead of standard sepsis fluid bolus, I have started with 1 L normal saline until intracranial pathology can be ruled out in response to fluids monitored. Will add more IV fluids as indicated. Lactate is pending. Will hold antibiotics until we can ascertain differential a bit better.. 08:51 ED course: Heart rate down to 87 after initial 1 L normal saline. Second 1 L normal sp3 saline ordered supportive sepsis workup. Clinically patient appears to be improved. Lactate of 2.1. Diagnosis will be urosepsis and cefepime 1 g IV has been ordered. Patient will be admitted to internal medicine for further management.. 12/12 07:02 Order name: Basic Metabolic Panel; Complete Time: 08:3 12/12 07:02 Order name: CBC with Diff; Complete Time: :3 12/12 07:02 Order name: LFT's; Complete Time: :3 12/12 07:02 Order name: Magnesium; Complete Time: :3 12/12 07:02 Order name: NT PRO-BNP; Complete Time: :3 12/12 07:02 Order name: PT-INR; Complete Time: :3 12/12 07:02 Order name: Troponin HS; Complete Time: 08:31 sp3 12/12 07:02 Order name: UAM; Complete Time: 08:50 sp3 12/12 07:02 Order name: Flu; Complete Time: 08:31 sp3 12/12 07:02 Order name: SARS RAPID; Complete Time: 08:31 sp3 12/12 07:06 Order name: Lactate w/ 2H reflex if indic.; Complete Time: 08:31 sp3 12/12 07:06 Order name: Blood Culture Adult (2) sp3 12/12 08:26 Order name: Ghost Lactate-NO COLLECT Timer EDMS 12/12 08:52 Order name: Urine Culture EDMS 12/12 12:52 Order name: Lactate Sepsis 2 HR Follow-up EDMS 12/12 13:17 Order name: Urinalysis w/ reflexes EDMS 12/12 13:17 Order name: Basic Metabolic Panel EDMS 12/12 13:17 Order name: Basic Metabolic Panel EDMS 12/12 13:17 Order name: Basic Metabolic Panel EDMS 12/12 13:17 Order name: Basic Metabolic Panel EDMS 12/12 13:17 Order name: Basic Metabolic Panel EDMS 12/12 13:17 Order name: Basic Metabolic Panel EDMS 12/12 13:17 Order name: Basic Metabolic Panel EDMS 12/12 13:17 Order name: Basic Metabolic Panel EDMS 12/12 13:17 Order name: CBC with Automated Diff EDMS 12/12 13:17 Order name: CBC with Automated Diff EDMS 12/12 13:17 Order name: CBC with Automated Diff EDMS 12/12 13:17 Order name: CBC with Automated Diff EDMS 12/12 13:17 Order name: CBC with Automated Diff EDMS 12/12 13:17 Order name: CBC with Automated Diff EDMS 12/12 13:17 Order name: CBC with Automated Diff EDMS 12/12 13:17 Order name: CBC with Automated Diff EDMS 12/12 13:17 Order name: Magnesium EDMS 12/12 13:17 Order name: Magnesium EDMS 12/12 13:17 Order name: Magnesium EDMS 12/12 13:17 Order name: Magnesium EDMS 12/12 13:17 Order name: Magnesium EDMS 12/12 13:17 Order name: Magnesium EDMS 12/12 13:17 Order name: Magnesium EDMS 12/12 13:17 Order name: Magnesium EDMS 12/12 13:17 Order name: Phosphorus EDMS 12/12 13:17 Order name: Phosphorus EDMS 12/12 13:18 Order name: Phosphorus EDMS 12/12 13:18 Order name: Phosphorus EDMS 12/12 13:18 Order name: Phosphorus EDMS 12/12 13:18 Order name: Phosphorus EDMS 12/12 13:18 Order name: Phosphorus EDMS 12/12 13:18 Order name: Phosphorus EDMS 12/12 07:02 Order name: XRAY Chest (1 view); Complete Time: 08:31 sp3 12/12 07:14 Order name: CT Head Brain wo Cont; Complete Time: 08:31 sp3 12/12 12:42 Order name: CT Abd/Pelvis - IV Contrast Only sp3 12/12 13:17 Order name: Physical Therapy Consult [facility] 12/12 07:02 Order name: Cardiac monitoring; Complete Time: 08:02 3 12/12 07:02 Order name: EKG - Nurse/Tech; Complete Time: 08:02 3 12/12 07:02 Order name: IV Saline Lock; Complete Time: 08:02 sp3 12/12 07:02 Order name: Labs collected and sent; Complete Time: 08:02 3 12/12 07:02 Order name: O2 Per Protocol; Complete Time: 08:02 3 12/12 07:02 Order name: O2 Sat Monitoring; Complete Time: 08:02 sp3 Administered Medications: 08:02 Drug: NS 0.9% IV 1000 ml IV at 1000 ml once; to be given as a bolus over 60 minutes rs5 Route: IV; Rate: 1000 ml; Site: right hand; 09:01 Follow up: Response: No adverse reaction; IV Status: Completed infusion; IV Intake: rs5 999ml 09:14 Drug: Cefepime IVPB 1 grams IVPB at 200 ml/hr once over 30 mins; (mix in NS 100 mL) rs5 Route: IVPB; Rate: 200 ml/hr; Infused Over: 30 mins; Site: right hand; 09:45 Follow up: IV Status: Completed infusion; IV Intake: 100ml rs5 09:15 Drug: NS 0.9% IV 1000 ml IV at 1000 ml once; to be given as a bolus over 60 minutes rs5 Route: IV; Rate: 1000 ml; Site: right hand; 10:10 Follow up: Response: No adverse reaction; IV Status: Completed infusion; IV Intake: rs5 999ml Disposition Summary: 12/12/24 08:54 Hospitalization Ordered Notes: Hospitalization Status: Inpatient Admission sp3 [facility] sp3 Condition: Stable sp3 Problem: new sp3 Symptoms: have worsened sp3 Bed/Room Type: Standard sp3 Provider: Jose Guadalupe Orr(12/12/24 12:05) sp3 Room Assignment: [facility](12/12/24 13:24) sp Diagnosis - Urosepsis, UTI, dehydration sp3 Forms: - Medication Reconciliation Form sp3 - SBAR form sp3 - Leadership Thank You Letter sp3 Signatures: Dispatcher [employer] EDMS Zena Jc Setul, MD MD sp3 Lisa Thomas RN RN vc1 Frank Wade RN RN rs5 Corrections: (The following items were deleted from the chart) 07:14 07:14 Head Brain Wo [id number] ordered. EDMS EDMS 12:05 08:54 Demond Monreal sp3 sp3 13:24 08:54 sp3 sp
[2024-12-12] MEDS ORDERED: CEFAZOLIN SODIUM 1 GM/VIAL ONE (08:58)
[2024-12-12] MEDS ORDERED: NA CHLORIDE 0.9% 100 ML ONE (08:58)
--- NOTE | 2024-12-12 14:16 | P.HP ---
Certification for Inpatient Patient admitted to: Inpatient With expected LOS: >2 Midnights Practitioner: I am a practitioner with admitting privileges, knowledge of patient current condition, hospital course, and medical plan of care. Services: Services provided to patient in accordance with Admission requirements found in Title 42 Section 412.3 of the Code of Federal Regulations Patient History Date of Service: 12/12/24 Reason for admission: Sepsis secondary to urinary tract infection History of Present Illness: Madison Cerrato is an 84 year old female with pmhx hypertension, CAD, anxiety/depression, CKD 2, diabetes, dementia, hallucinations who presents to the ED with general weakness, fever and confusion for one week per the family. Laboratory evaluation significant for lactic acid 2.1, BUN/creatinine 22/1.62, GFR 31, serum glucose 195, UA suggestive of infectious process. Vital signs while in the ER blood pressure 150/61, heart rate 112, respirations 24, te mperature 99.3, pulse ox 94%. CT head reports No evidence of acute intracranial abnormality. CT abdomen pelvis reports No acute or concerning abnormalities seen in the abdomen or pelvis. Stable findings as above. Chest x-ray reports No acute intrathoracic abnormalities. Madison will be admitted to hospitalist service for severe sepsis 2/2 UTI. Allergies milk Allergy (Verified 09/11/22 14:05) Gas Home Medications: Isosorbide Mononitrate [Isosorbide Mononitrate ER] 60 mg PO DAILY 06/07/21 Losartan Potassium 25 mg PO DAILY 06/07/21 Montelukast [Singulair*] 10 mg PO BEDTIME 06/07/21 Pregabalin [Lyrica] 150 mg PO BEDTIME 06/07/21 Amlodipine [Norvasc*] 10 mg PO DAILY 06/12/21 Atorvastatin Calcium [Lipitor] 20 mg PO BEDTIME 09/11/22 Pantoprazole [Protonix Tab] 40 mg PO DAILY 09/11/22 Sertraline HCl 25 mg PO DAILY 09/11/22 Trazodone HCl 50 mg PO BEDTIME 09/11/22 risperiDONE [Risperidone] 1 mg PO BEDTIME 09/11/22 - Past Medical/Surgical History -: HTN -: CAD -: Anxiety/depression -: CKD2 -: Dementia -: Hallucinations -: Knee surgery -: Hysterectomy -: Cholecystectomy Psychosocial/ Personal History: Retired, lives with sister - Family History Mother -: Cancer - Social History Smoking Status: Never smoker Alcohol use: No CD- Drugs: No Caffeine use: Yes Review of Systems General: Fever, Weakness Neurological: Confusion Physical Examination - Physical Exam General: Alert, In no apparent distress, Oriented x3 HEENT: Atraumatic, Normocephalic, PERRLA Neck: Supple, 2+ carotid pulse no bruit, JVD not distended Respiratory: Clear to auscultation bilaterally, Normal air movement Cardiovascular: Normal pulses, Regular rate/rhythm, Normal S1 S2 Capillary refill: <2 Seconds Gastrointestinal: Normal bowel sounds, Soft and benign Musculoskeletal: No clubbing Integumentary: No rashes Neurological: Normal speech, Normal tone - Studies Laboratory Data (last 24 hrs) 12/12/24 12/12/24 12/12/24 07:45 07:45 07:45 WBC 4.80 Hgb 11.5 L Hct 33.5 L Plt Count 156 PT 12.5 INR 1.12 Sodium 138 Potassium 3.5 BUN 22 H Creatinine 1.62 H Glucose 195 H Magnesium 1.7 Total Bilirubin 0.3 AST < 10 L ALT 15 Alkaline Phosphatase 61 Microbiology Data (last 24 hrs): 12/12/24 07:45 Nasopharnyx Influenza Type A Antigen Screen - Final 12/12/24 07:45 Nasopharnyx Influenza Type B Antigen Screen - Final Assessment and Plan - Plan Assessment and plan Severe sepsis 2/2 UTI Weakness -Sepsis criteria lactic acid 2.1, heart rate 112, RR 24, UTI -2 liters NS given in the ED, LA 1.6 -Follow urine culture -IV antibiotic -IV fluids -Physical therapy CKD 2 -BUN/creatinine 22/1.62, GFR 31 -Gentle IV fluids Diabetes mellitus -Serum glucose 195 -Accu-Chek with sliding scale insulin Hypertension CAD Anxiety/depression Dementia Hallucinations -Continue home medications DVT PPx heparin Full code LOS 2 to 3 days Discharge Plan: Home Plan to discharge in: 48 Hours - Advance Directives Does patient have a Living Will: No Does patient have a Durable POA for Healthcare: No
[2024-12-12] MEDS: INSULIN REGULAR (HUMAN) 100 UNIT/ML SQ SCH (16:30)
[2024-12-12] MEDS: HYDRALAZINE HCL 20 MG/ML VIAL IV PRN (16:36)
[2024-12-12 17:15] LABS: Specific Gravity 1.019 (1.005-1.030); Sqamous Epithelial None Seen /HPF (None Seen); Urine Bacteria <20 /HPF (<20); Urine Bilirubin NEGATIVE (Negative); Urine Blood Negative (Negative); Urine Clarity Turbid (Clear); Urine Color Colorless (Yellow); Urine Culture Reflex Order REFLEXED; Urine Glucose NEGATIVE (Negative); Urine Ketones NEGATIVE (Negative); Urine Microscopic Reflex YN ORDER UMIC; Urine Nitrite NEGATIVE (Negative); Urine Protein 1+ (Negative); Urine RBC <5 /HPF (None Seen); Urine Urobilinogen Normal (Normal); Urine WBC >50 /HPF (<5); Urine pH 6.5 (5.0-7.0)
[2024-12-12] MEDS: BENZONATATE 100 MG CAP PO PRN (17:29)
--- NOTE | 2024-12-12 18:22 | RAD REPORT ---
EXAMINATION: CT Abdomen Pelvis W Contrast CLINICAL INDICATION: Female, 84 years old. ABD PAIN TECHNIQUE: CT abdomen and pelvis was performed, after the administration of IV contrast, [facility]. Axial, sagittal and coronal reconstructions were obtained. One or more of the following dose reduction techniques were used: Automated exposure control, adjustment of the mA and k V according to patient size, and iterative reconstruction. Unless otherwise specified, incidental findings do not require dedicated imaging follow-up. COMPARISON: 06/23/2021 FINDINGS: LOWER CHEST: The visualized lung bases are clear. LIVER: Normal in size and contour. Small subcentimeter left lobe hypoattenuating foci, stable, may pierre ggest small cysts. No suspicious focal lesion. BILIARY SYSTEM: Status post cholecystectomy. SPLEEN: Normal size. No focal lesion. PANCREAS: No mass, ductal dilation, or sera-pancreatic fluid. ADRENALS: Normal; no mass. KIDNEYS: Multifocal cortical thinning throughout both kidneys, suggesting scarring. Appearance is sta ble. No hydronephrosis. URINARY BLADDER: Moderately distended. No focal wall masses or calculi. GASTROINTESTINAL TRACT: No evidence of free air, significant intra-abdominal free fluid, bowel obstru ction or abscess. Sigmoid diverticulosis. APPENDIX: Appendix not visualized, but no inflammatory changes in region of appendix. LYMPH NODES: No lymphadenopathy. MUSCULOSKELETAL: No acute or suspicious osseous abnormality.. Endplate compression for maybe at T12 i s stable. ADDITIONAL FINDINGS: None. IMPRESSION: No acute or concerning abnormalities seen in the abdomen or pelvis. Stable findings as above..
[2024-12-12] MEDS: PREGABALIN 150 MG CAP PO SCH (20:31)
[2024-12-12] MEDS: RISPERIDONE 1 MG TABLET PO SCH (20:32)
[2024-12-12] MEDS: ACETAMINOPHEN 325 MG TABLET PO PRN (20:32)
[2024-12-12] MEDS: ATORVASTATIN 40 MG TAB PO SCH (20:32)
[2024-12-12] MEDS: HEPARIN 5000 UNIT/ML 1 ML VIAL SQ SCH (20:33)
[2024-12-12] MEDS: NA CHLORIDE 0.9% 1,000 ML IV SCH (20:33)
[2024-12-13 05:47] LABS: Absolute Lymphocytes (CBC) 1.2 K/uL (0.7-4.9); Absolute Monocytes 0.6 K/uL (0.1-1.3); Absolute Neutrophil 5.5 K/uL (1.8-8.0); Basophils % 0.4 % (0-1.3); Eosinophils % 0.4 % (0-4.4); Hematocrit 33.1 % (36.0-45.0); Hemoglobin 11.1 g/dL (12.0-15.0); Lymphocytes % 16.8 % (15.3-44.8); MCH 31.1 pg (27.0-35.0); MCHC 33.6 g/dL (32.0-36.0); MCV 92.7 fL (80-100); MPV 8.7 fL (7.6-11.3); Monocytes % 8.1 % (3.3-12.3); Neutrophils % 74.3 % (41.7-73.7); Nucleated Red Blood Cells % 0.1 % (0-0); Platelets 151 thou/uL (152-406); RBC Red Blood Cell Count 3.57 M/uL (3.86-4.86); Red Cell Distribution Width 14.8 % (12.1-15.2)
[2024-12-13 06:03] LABS: Anion Gap 12.7 mEq/L (5.0-15.0); Magnesium 1.5 mg/dL (1.6-2.4); Phosphorus 2.8 mg/dL (2.5-4.9); Potassium 2.7 mEq/L (3.5-5.1)
[2024-12-13] MEDS: Magnesium Sulfate 2gm IVPB 2 G/50 ML BAG IV ONE (06:54)
[2024-12-13] MEDS: KCL 20 MEQ/100 mL IVPB 20 MEQ/100 ML BAG IV SCH (08:46)
[2024-12-13] MEDS: SERTRALINE HCL 50 MG TAB PO SCH (08:47)
[2024-12-13] MEDS: LOSARTAN POTASSIUM 50 MG TABLET PO SCH (08:47)
[2024-12-13] MEDS: PANTOPRAZOLE 40MG TABLET PO SCH (08:47)
[2024-12-13] MEDS: ISOSORBIDE MONO SR 60 MG TAB PO SCH (08:47)
[2024-12-13] MEDS: CEFTRIAXONE 1,000 MG in NA CHLORIDE 0.9% 50 ML IVPB SCH (10:44)
[2024-12-13] MEDS: POTASSIUM CL 40 MEQ in NA CHLORIDE 0.9% 500 ML IV ONE (13:15)
--- NOTE | 2024-12-13 15:46 | P.PN ---
Date of Service: 12/13/24 Subjective Awake and conversing well Temp of 100 F this morning Awaiting urine culture and replacing electrolytes ROS 10 point ROS as noted above, otherwise negative Physical Exam General: Alert and Oriented x3, NAD HEENT: Atraumatic, Normocephalic, PERRLA Neck: Supple, 2+ carotid pulse no bruit, JVD not distended Respiratory: Clear to auscultation bilaterally, Normal air movement, on RA Cardiovascular: Normal pulses, RRR, Normal S1 S2 Capillary refill: <2 Seconds Gastrointestinal: Normal bowel sounds, Soft and benign on palpation Musculoskeletal: No clubbing Integumentary: No rashes Neurological: Normal speech, Normal tone Vitals Reviewed Problem list Severe sepsis 2/2 UTI Weakness CKD 2 Diabetes mellitus Hypertension CAD Anxiety/depression Dementia Hallucinations Assessment and Plan Severe sepsis 2/2 UTI Weakness -Sepsis criteria lactic acid 2.1, heart rate 112, RR 24, UTI -2 liters NS given in the ED, LA 1.6 -Follow urine [id number] rods -Continue IV antibiotic -IV fluids with potassium replacement -Physical therapy Hypokalemia Hypomagnesemia -K 2.7, mag 1.5 -replacement protocol in place CKD 2 -BUN/creatinine 15/1.05, GFR 52-improved -Gentle IV fluids Diabetes mellitus -Serum glucose 104 -Accu-Chek with sliding scale insulin Hypertension CAD Anxiety/depression Dementia Hallucinations -Continue home medications DVT PPx heparin Full code LOS 2 to 3 days Discharge Plan: Home Plan to discharge in: 48 Hours
[2024-12-13] MEDS: TRAZODONE 50 MG TABLET PO SCH (20:38)
[2024-12-13] MEDS: MONTELUKAST 10 MG TAB PO SCH (20:38)
[2024-12-14 06:29] LABS: Absolute Lymphocytes (CBC) 0.9 K/uL (0.7-4.9); Absolute Monocytes 0.4 K/uL (0.1-1.3); Absolute Neutrophil 3.2 K/uL (1.8-8.0); Basophils % 0.5 % (0-1.3); Hematocrit 30.7 % (36.0-45.0); Hemoglobin 10.4 g/dL (12.0-15.0); Lymphocytes % 18.7 % (15.3-44.8); MCH 31.2 pg (27.0-35.0); MCHC 33.8 g/dL (32.0-36.0); MCV 92.3 fL (80-100); MPV 9.3 fL (7.6-11.3); Monocytes % 9.2 % (3.3-12.3); Neutrophils % 70.6 % (41.7-73.7); Nucleated Red Blood Cells % 0.1 % (0-0); Platelets 143 thou/uL (152-406); RBC Red Blood Cell Count 3.33 M/uL (3.86-4.86); Red Cell Distribution Width 14.2 % (12.1-15.2)
[2024-12-14 06:51] LABS: Anion Gap 12.3 mEq/L (5.0-15.0); Magnesium 2.1 mg/dL (1.6-2.4); Phosphorus 3.3 mg/dL (2.5-4.9); Potassium 3.3 mEq/L (3.5-5.1)
[2024-12-14] MEDS: POTASSIUM 25 MEQ EFFERV TAB PO ONE (09:25)
[2024-12-14] MEDS: METOPROLOL XL 25 MG TAB PO SCH (09:26)
[2024-12-14] MEDS: CIPROFLOXACIN 400mg IV 400 MG/200 ML BAG IV SCH (09:27)
--- NOTE | 2024-12-14 10:21 | P.CNS ---
Date of Consult: 12/14/24 Chief Complaint: SVT History of Present Illness: Patient with PMH of THN, presented with UTI, Bactermia, cardiology was consulted for few runs of SVTs on tele, patient denies feeling it but report history of palpitations long time ago, denies chest pain, no syncope, no SOB, no HOGUE. Allergies milk Allergy (Verified 09/11/22 14:05) Gas Home medications list reviewed: Yes Home Medications: Isosorbide Mononitrate [Isosorbide Mononitrate ER] 60 mg PO DAILY 06/07/21 Losartan Potassium 25 mg PO DAILY 06/07/21 Montelukast [Singulair*] 10 mg PO BEDTIME 06/07/21 Pregabalin [Lyrica] 150 mg PO BEDTIME 06/07/21 Atorvastatin Calcium [Lipitor] 20 mg PO BEDTIME 09/11/22 Pantoprazole [Protonix Tab] 40 mg PO DAILY 09/11/22 Sertraline HCl 25 mg PO DAILY 09/11/22 Trazodone HCl 50 mg PO BEDTIME 09/11/22 risperiDONE [Risperidone] 1 mg PO BEDTIME 09/11/22 - Past Medical/Surgical History Diabetic: No -: HTN -: CAD -: Anxiety/depression -: CKD2 -: Dementia -: Hallucinations -: Knee surgery -: Hysterectomy -: Cholecystectomy Psychosocial/ Personal History: Retired, lives with sister - Family History Mother Medical History: Cancer Notes: left breast mastectomy - Social History Alcohol use: No CD- Drugs: No Caffeine use: Yes Place of Residence: Home Review of Systems 10-point ROS is otherwise unremarkable Physical Examination Temp Pulse Resp BP Pulse Ox 97.8 F 70 18 127/64 94 12/14/24 08:00 12/14/24 09:26 12/14/24 08:00 12/14/24 09:26 12/14/24 08:00 General: Alert, In no apparent distress HEENT: Atraumatic, PERRLA, Mucous membr. moist/pink, EOMI, Sclerae nonicteric Neck: Supple, 2+ carotid pulse no bruit, No LAD, Without JVD or thyroid abnormality Respiratory: Clear to auscultation bilaterally, Normal air movement Cardiovascular: Regular rate/rhythm, Normal S1 S2 Gastrointestinal: Normal bowel sounds, No tenderness Musculoskeletal: No tenderness Integumentary: No rashes Neurological: Normal gait, Normal speech, Normal tone, Normal affect Lymphatics: No axilla or inguinal lymphadenopathy - Problems (1) SVT (supraventricular tachycardia) Current Visit: Yes Status: Acute Plan: tele shows occasional SVTs, no other arrhythmia agree with Toprol XL 25 mg daily continue to monitor on tele (2) HTN (hypertension) Current Visit: No Status: Chronic Plan: continue losartan and imdur. Qualifiers: Hypertension type: primary hypertension Qualified Code(s): I10 - Essential (primary) hypertension
--- NOTE | 2024-12-14 17:34 | P.DS ---
Admission Date: 12/12/24 Discharge Date: 12/14/24 Disposition: ROUTINE DISCHARGE Discharge Condition: FAIR Reason for Admission: SVT Hospital Course: ANALI HAS UTI WITH SEPSIS. SHE IS GROWING PSEUDOMONAS FROM URINE SHE IS GIVEN CIPRO ORALLY FOR ABX. SHE WILL START ON METOPROLOL SMALL DOSE FOR CONTROL OF SHORT BURSTS OF SVT. SHE IS EAGER AND STABLE FOR DISCHARGE. Vital Signs/Physical Exam: Temp Pulse Resp BP Pulse Ox 97.4 F 71 18 138/63 98 12/14/24 12:00 12/14/24 12:00 12/14/24 12:00 12/14/24 12:00 12/14/24 12:00 Laboratory Data at Discharge: WBC 4.60 thou/uL (4.3-10.9) 12/14/24 05:31 Hgb 10.4 g/dL (12.0-15.0) L 12/14/24 05:31 Hct 30.7 % (36.0-45.0) L 12/14/24 05:31 Plt Count 143 thou/uL (152-406) L 12/14/24 05:31 PT 12.5 SECONDS (9.4-12.5) 12/12/24 07:45 INR 1.12 12/12/24 07:45 Sodium 137 mEq/L (136-145) D 12/14/24 05:31 Potassium 3.3 mEq/L (3.5-5.1) L D 12/14/24 05:31 BUN 21 mg/dL (7-18) H 12/14/24 05:31 Creatinine 1.18 mg/dL (0.55-1.02) H 12/14/24 05:31 Glucose 88 mg/dL (74-106) 12/14/24 05:31 Phosphorus 3.3 mg/dL (2.5-4.9) 12/14/24 05:31 Magnesium 2.1 mg/dL (1.6-2.4) 12/14/24 05:31 Total Bilirubin 0.3 mg/dL (0.2-1.0) 12/12/24 07:45 AST < 10 U/L (15-37) L 12/12/24 07:45 ALT 15 U/L (13-56) 12/12/24 07:45 Alkaline Phosphatase 61 U/L (45-117) 12/12/24 07:45 Home Medications: Isosorbide Mononitrate [Isosorbide Mononitrate ER] 60 mg PO DAILY 06/07/21 Losartan Potassium 25 mg PO DAILY 06/07/21 Montelukast [Singulair*] 10 mg PO BEDTIME 06/07/21 Pregabalin [Lyrica] 150 mg PO BEDTIME 06/07/21 Atorvastatin Calcium [Lipitor] 20 mg PO BEDTIME 09/11/22 Pantoprazole [Protonix Tab*] 40 mg PO DAILY 09/11/22 Sertraline HCl 25 mg PO DAILY 09/11/22 Trazodone HCl 50 mg PO BEDTIME 09/11/22 risperiDONE [Risperidone] 1 mg PO BEDTIME 09/11/22 Ciprofloxacin HCl [Cipro 500 MG Tablet] 500 mg PO BID #14 tab 12/14/24 Metoprolol Succinate [Toprol Xl*] 25 mg PO [id number] #90 tab 12/14/24 Potassium Chloride [Klor-Con M20] 20 meq PO DAILY #5 tab 12/14/24 New Medications: Ciprofloxacin HCl [Cipro 500 MG Tablet] 500 mg PO BID #14 tab Potassium Chloride [Klor-Con M20] 20 meq PO DAILY #5 tab Metoprolol Succinate [Toprol Xl*] 25 mg PO [id number] #90 tab Followup: Jose Guadalupe Orr MD [Primary Care Provider] - 1-2 Weeks
[2024-12-15 15:22] VITALS: BP 138/63; TEMP 97.4; O2SAT 94
--- NOTE | 2024-12-17 12:07 | EKG ---
Test Date: 2024-12-14 Test Time: 09:40:36 [employer] Worker: BRIAN MEASUREMENT RESULTS: Intervals: Rate: 75 MO: 176 QRSD: 138 QT: 458 QTc: 511 [place]: P: 73 MO: 176 QRS: -26 T: 35 INTERPRETIVE STATEMENTS: Normal sinus rhythm Right bundle branch block Inferior infarct, age undetermined Abnormal ECG Compared to ECG 12/12/2024 07:57:24 Myocardial infarct finding now present Electronically Signed On 12-17-24 12:07:16 BOMB LOADER by Francisco Mata
--- NOTE | 2024-12-17 12:07 | EKG ---
Test Date: 2024-12-14 Test Time: 09:42:57 Engine Dynamometer Tester: BRIAN MEASUREMENT RESULTS: Intervals: Rate: 76 MN: 184 QRSD: 134 QT: 458 QTc: 515 [place]: P: 72 MN: 184 QRS: -42 T: 32 INTERPRETIVE STATEMENTS: Normal sinus rhythm Left axis deviation Right bundle branch block Inferior infarct, age undetermined Abnormal ECG Compared to ECG 12/12/2024 07:57:24 Left-axis deviation now present Myocardial infarct finding now present Electronically Signed On 12-17-24 12:07:13 REGISTERED MASSAGE THERAPIST by Francisco Mata
--- NOTE | 2024-12-17 12:16 | EKG ---
Test Date: 2024-12-12 Test Time: 07:57:24 Computer Technician: MAITE MEASUREMENT RESULTS: Intervals: Rate: 88 [place]: 184 QRSD: 128 QT: 412 QTc: 498 [place]: P: 71 [place]: 184 QRS: -22 T: 33 INTERPRETIVE STATEMENTS: Normal sinus rhythm Right bundle branch block Abnormal ECG Compared to ECG 11/01/2024 14:44:30 No significant changes Electronically Signed On 12-17-24 12:13:04 SKILLED NURSING CASE MANAGER by Francisco Mata
== END 2024-12-14 13:03 | disposition home or self-care (01) | DRG 872 ==
LOC: ER 06:51 → 4TH 13:12
PROVIDERS: ADMIT Internal Medicine; ATTEND Internal Medicine
DX: A41.52 Sepsis due to Pseudomonas (principal); N39.0 Urinary tract infection, site not specified; F02.84 Dementia in other diseases classified elsewhere, unspecified severity, with anxiety; F02.83 Dementia in other diseases classified elsewhere, unspecified severity, with mood disturbance; F02.82 Dementia in other diseases classified elsewhere, unspecified severity, with psychotic disturbance; I47.10 Supraventricular tachycardia, unspecified; G30.9 Alzheimer's disease, unspecified; R65.20 Severe sepsis without septic shock; I12.9 Hypertensive chronic kidney disease with stage 1 through stage 4 chronic kidney disease, or unspecified chronic kidney disease; N18.2 Chronic kidney disease, stage 2 (mild); E11.22 Type 2 diabetes mellitus with diabetic chronic kidney disease; E78.5 Hyperlipidemia, unspecified; E87.6 Hypokalemia; E86.0 Dehydration; E83.42 Hypomagnesemia; I25.10 Atherosclerotic heart disease of native coronary artery without angina pectoris; Z88.5 Allergy status to narcotic agent; Z11.52 Encounter for screening for COVID-19; Z86.73 Personal history of transient ischemic attack (TIA), and cerebral infarction without residual deficits; Z90.49 Acquired absence of other specified parts of digestive tract; Z79.899 Other long term (current) drug therapy; Z90.710 Acquired absence of both cervix and uterus; Z91.011 Allergy to milk products
CPT/HCPCS: 36415; 70450; 71045; 74177; 80048; 80076; 81001; 82947; 83605; 83735; 83880; 84100; 84132; 84484; 85025; 85610; 87040; 87077; 87086; 87088; 87186; 87804; 87811; 93005; 96361; 96365; 97116; 97161; 99285; J0360; J0690; J0696; J0744; J1644; J3475; J3480; J7030; J7040; Q9967

== ENCOUNTER 2025-08-28 16:43 | Emergency (ER) | payer OTHER ==
--- OUTSIDE RECORDS SUMMARY | 2025-08-28 17:04 | XMS REPORT | Continuity of Care Document ---
Author Name Unknown Address [address] [facility] [place] [address] [facility] Address 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 Name Role Phone DONALD ORR Primary Care Physician Unavailab LOUANN Tejada Attending Clinician LOUANN Delaney Attending Clinician Louann Delaney PA-C Attending Clinician [phone] Alondra Saab MD Attending Clinician [phone] Doctor Unassigned, [place] Attending Clinician U CHINO Viveros Attending Clinician Unav CHINO Giraldo Attending Clinician UnaALONDRA Jo Attending Clinician ALONDRA Galindo Attending Clinician Unavailshavonne López, [facility] Attending Clinician Zane Reza DPM Attending Clinician + [phone] ZANE MARI Attending Clinician Unavail able Ronald Ochoa Attending Clinician Unavail able GC_[email or web address]_S Attending Clinician UnavailVero Johns Attending Clinician Unavaila Rusty Lau Attending Clinician TRACY Spencer Attending Clinician Unavailable PHILIP MOYER Attending Clinician Unavailable SHAGGY VILLALPANDO Attending Clinician Unavail able SHAGGY VILLALPANDO Attending Clinician Unavail able Keo THEODORE, Shaggy Chávez Attending Clinician [phone] Whit ARROYO, Maulik Attending Clinician [phone] Doctor Unassigned, [place] Attending Clinician U BISI Cordero Attending Clinician Unavailable MAULIK SHERMAN Attending Clinician Unavailab emmanuel Flores MD, Bisi Attending Clinician [phone] Kimberly THEODORE, Tracy Attending Clinician [phone] JONAH OTERO Attending Clinician Unavailable Shanna THEODORE, Jonah Attending Clinician [phone] ANA WHITEHEAD Attending Clinician Unavailable Ventura COMMERCIAL ROOFER, Ana Attending Clinician [phone] Pob, [facility] Attending Clinician UnavailPAM Ramierz Attending Clinician Unavailable Pam Kraus Attending Clinician [phone] Do Arboleda MD Attending Clinician [phone] Berna Brenner Attending Clinician [phone] BERNA DONG Attending Clinician Unavailable Cresencio Bush MD Attending Clinician [phone] CRESENCIO BUSH Attending Clinician Unavailable CHINO GEORGE Admitting Clinician Unav ALONDRA Aguila Admitting Clinician Unavailabl e Ronald Ochoa Admitting Clinician Unavail able [email or web address]_Faustinaa_S Admitting Clinician Unavaila Vero [place] Admitting Clinician Unavaila Rusty Lau Admitting Clinician UnaJONAH Patton Admitting Clinician Unavailable Payers Payer Name Policy Type Policy Number Effective Date Expirati on Date Source [employer] MEDICARE [id number] 2025 00:00:00 [employer] MEDICARE OON Medicare [id number] 2022 00:00:00 [employer] (MEDICARE REPLACEMENT/ADVANT AGE - PPO) [id number] Problems Condition Name Condition Details Condition Category Status Onset Date Resolution Date Last Treatment Date Treating Clinician Comments Source Primary osteoarthr itis of left knee Primary osteoarthr itis of left knee Disease Active 0 7-17 00:00: 00 [facility] Pre-op testing Pre-op testing Disease Active 0 7-17 00:00: 00 [facility] Urinary symptoms Urinary Symptoms Problem Active 7-03 00:00: 00 [facility] Senile dementia Senile Dementia Problem Active 7-03 00:00: 00 [facility] Urgent desire to urinate Urgent Desire to Urinate Problem Active 0 6-03 00:00: 00 [facility] Cyst of kidney Cyst of Kidney Problem Active 0 5-30 00:00: 00 [facility] Pain in pelvis Pain in Pelvis Problem Active 0 5-23 00:00: 00 [facility] Cystocele Cystocele Problem Active 0 7-11 00:00: 00 [facility] Female stress incontinen ce Female Stress Incontinen ce Problem Active 0 7-11 00:00: 00 [facility] Atrophic vaginitis Atrophic Vaginitis Problem Active 0 7-11 00:00: 00 [facility] Dementia Dementia Problem Active 0 7-11 00:00: 00 [facility] 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 Problem Active 0 7-11 00:00: 00 [facility] Genuine stress incontinen ce Genuine Stress Incontinen ce Problem Active 0 4-11 00:00: 00 [facility] Lateral cystocele Lateral Cystocele Problem Active 0 1-18 00:00: 00 [facility] Personal history of primary malignant neoplasm of breast Personal History of Primary Malignant Neoplasm of Breast Problem Active 0 1-18 00:00: 00 [facility] History of urinary tract infection History of Urinary Tract Infection Problem Active 0 1-18 00:00: 00 [facility] Overactive urinary bladder Overactive Urinary Bladder Problem Active 0 1-18 00:00: 00 [facility] Urge incontinen ce of urine Urge Incontinen ce of Urine Problem Active 2021-12 2-16 00:00: 00 [facility] Mixed urinary incontinen ce Mixed Urinary Incontinen ce Problem Active 2022-1 2-16 00:00: 00 [facility] Forgetfuln ess Forgetfuln ess Disease Active 2020-12 2-28 00:00: 00 [facility] Hypertensi ve urgency Hypertensi ve urgency Disease Active 2020-12 1-19 00:00: 00 [facility] Contusion of left great toe with damage to nail, initial encounter Contusion of left great toe with damage to nail, initial encounter Disease Active 8-20 00:00: 00 [facility] Arthritis, multiple joint involvemen t Arthritis, multiple joint involvemen t Disease Active 820 00:00: 00 [facility] Non compliance with medical treatment Non compliance with medical treatment Disease Active 8 00:00: 00 [facility] Diabetic eye exam Diabetic eye exam Disease Active 818 00:00: 00 [facility] Senile osteoporos is Senile osteoporos is Disease Active 8 00:00: 00 [facility] Need for 23-polyval ent pneumococc al polysaccha ride vaccine Need for 23-polyval ent pneumococc al polysaccha ride vaccine Disease Active 818 00:00: 00 [facility] Depression , major, recurrent, moderate Depression , major, recurrent, moderate Disease Active 8- 00:00: 00 [facility] 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, without long-term current use of 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, without long-term current use of insulin Disease Active 8- 00:00: 00 [facility] Recurrent UTI Recurrent UTI Disease Active 8-13 00:00: 00 [facility] Cystitis Cystitis Disease Active 8-13 00:00: 00 [facility] Dysuria Dysuria Disease Active 8-13 00:00: 00 [facility] Lower abdominal pain Lower abdominal pain Disease Active 8-13 00:00: 00 [facility] Alzheimer' s disease of other onset without behavioral disturbanc e Alzheimer' s disease of other onset without behavioral disturbanc e Disease Active 8 00:00: 00 [facility] Chronic idiopathic thrombocyt openia Chronic idiopathic thrombocyt openia Disease Active 8 00:00: 00 [facility] Pyelonephr itis Pyelonephr itis Disease Active 8 00:00: 00 [facility] Gastroesop hageal reflux disease without esophagiti s Gastroesop hageal reflux disease without esophagiti s Disease Active 8 00:00: 00 [facility] Primary insomnia Primary insomnia Disease Active 07-14 00:00: 00 [facility] Hospital discharge follow-up Hospital discharge follow-up Disease Active 07-14 00:00: 00 [facility] Depression , major, recurrent, moderate Depression , major, recurrent, moderate Disease Active 07-14 00:00: 00 [facility] Anxiety, generalize d Anxiety, generalize d Disease Active 07-14 00:00: 00 [facility] Chronic anemia Chronic anemia Disease Active 07-14 00:00: 00 [facility] Mixed hearing loss, bilateral Mixed hearing loss, bilateral Disease Active 07-14 00:00: 00 [facility] Dyslipidem ia Dyslipidem ia Disease Active 8 00:00: 00 [facility] Essential hypertensi on Essential hypertensi on Disease Active 07-14 00:00: 00 [facility] Chronic midline low back pain without sciatica Chronic midline low back pain without sciatica Disease Active 8 00:00: 00 [facility] Urothelial lesion Urothelial lesion Disease Active 07-14 00:00: 00 [facility] Diverticul osis Diverticul osis Disease Active 8 00:00: 00 [facility] Renal scarring Renal scarring Disease Active 8 00:00: 00 [facility] Diabetic polyneurop athy associated with type 2 diabetes mellitus Diabetic polyneurop athy associated with type 2 diabetes mellitus Disease Active 07-14 00:00: 00 [facility] Atheroscle rosis of aorta Atheroscle rosis of aorta Disease Active 07-14 00:00: 00 [facility] 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, without long-term current use of 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, without long-term current use of insulin Disease Active 07-14 00:00: 00 [facility] RLS (restless legs syndrome) RLS (restless legs syndrome) Disease Active 07-14 00:00: 00 [facility] Abnormal liver enzymes Abnormal liver enzymes Disease Active 07-14 00:00: 00 [facility] CKD stage G3a/A2, GFR 45-59 and albumin creatinine ratio 30-299 mg/g CKD stage G3a/A2, GFR 45-59 and albumin creatinine ratio 30-299 mg/g Disease Active 07-14 00:00: 00 [facility] Allergies, Adverse Reactions, Alerts Allergy Name Allergy Type Status Severity Reaction(s) Onset Date Inactive Date Treating Clinician Comments Source sulfamet hoxazole DA Active SV DIARRHEA 05-23 00:00: 00 [facility] trimetho prim DA Active SV DIARRHEA 05-23 00:00: 00 [facility] SULFAMET HOXAZOLE DRUG INGREDI Active Diarrhea 05-23 00:00: 00 [facility] TRIMETHO PRIM DRUG INGREDI Active Diarrhea 05-23 00:00: 00 [facility] Sulfamet hoxazole Drug Allergy Active Diarrhea 05-23 00:00: 00 [facility] Trimetho prim Drug Allergy Active Diarrhea 05-23 00:00: 00 [facility] No Known Allergie s DA Active U 8-19 00:00: 00 [facility] Codeine Allergy to substanc e Active Dizziness 2021-0 8-04 00:00: 00 [facility] CODEINE DRUG INGREDI Active Dizziness 8-04 00:00: 00 [facility] Codeine Propensi ty to adverse reaction s Active Dizziness 8-04 00:00: 00 [facility] ALLERGIE S NOT ON FILE SYSTEMIC Active MHEOUT ALLERGIE S NOT ON FILE SYSTEMIC Active MHEOUT ALLERGIE S NOT ON FILE SYSTEMIC Active MHEOUT ALLERGIE S NOT ON FILE SYSTEMIC Active MHEOUT ALLERGIE S NOT ON FILE SYSTEMIC Active M[facility]OUT Social History Social Habit Start Date Stop Date Quantity Comments Source ASSERTION Not [facility] Gender identity Francisco riaelif [facility] Sexual orientation [facility] Alcoholic beverage intake 2025-08-19 00:00:00 2025-08-19 00:00:00 Lifetime non-drinker (finding) [facility] History of Social function 2025-05-11 00:00:00 2025-05-11 00:00:00 [facility] Exposure to SARS-CoV-2 (event) 2021-11-04 00:00:00 2021-12-04 07:44:00 Not sure [facility] Alcohol intake 2021-07-25 00:00:00 2021-07-25 00:00:00 Lifetime non-drinker (finding) [facility] Tobacco use and exposure 2021-07-21 00:00:00 2021-07-21 00:00:00 Smokeless tobacco non-user [facility] Sex assigned at 1940 00:00:00 1940 00:00:00 [facility] Smoking Status Start Date Stop Date Source Tobacco smoking consumption unknown [facility] Never smoked tobacco [facility] Medications Ordered Medication Name Filled Medication Name Start Date Stop Date Current Medication? Ordering Clinician Indication Dosage Frequency Signature (SIG) Comments Components Source HYDROcodone -acetaminop hen (NORCO 5) 5-325 mg tablet 1 tablet 07-08 20:45: 00 07-08 20:50 :00 No 1{tbl} 1 tablet, Oral, ONCE, 1 dose, On Sat07/08/25 at 1545, NITA [facility] iopamidol (ISOVUE 370-500 mL) injection 85 mL 07-08 19:45: 00 07-08 19:45 :00 No [id number] 85mL 85 mL, Intravenou s, ONCE, 1 dose, On Rena 07/08/25 at 1445, Routine [facility] acetaminoph en (TYLENOL) tablet 1,000 mg 07-05 18:15: 00 07-05 17:39 :00 No 1000mg 1,000 mg, Oral, ONCE, 1 dose, On Sat07/05/25 at 1315, Routine [facility] lactated ringers IV infusion 1,000 mL 07-05 16:30: 00 07-05 22:13 :37 No 1000mL at 75 mL/hr, 1,000 mL, IV Infusion, CONTINUOUS , Starting on Sat07/05/25 at 1130, Until Sat07/05/25 at 1713, Routine, PACU [facility] fentanyl PF (SUBLIMAZE (PF)) injection 25 mcg 07-05 16:15: 55 07-05 22:13 :37 No 25ug 25 mcg, Slow IV Push, Q5MIN PRN, 4 doses, Starting on Sat07/05/25 at 1115, Until Sat07/05/25 at 1713, Routine, Pain Scale 4-6, PACU [facility] fluticasone propionate 50 mcg/actuati on nasal spray 07-05 15:13: 37 Yes 2{spray } Use 2 Sprays in each nostril in the morning. [facility] losartan 50 mg tablet 07-05 15:13: 37 Yes 50mg Take 1 tablet by mouth every evening. [facility] ipratropium 42 mcg (0.06 %) nasal spray 07-05 15:13: 37 Yes 2{spray } Use 2 Sprays in each nostril as needed. [facility] risperiDONE 1 mg tablet 07-05 15:13: 37 Yes 1mg Take 1 tablet by mouth in the morning. [facility] BUPivacaine liposome (PF) (EXPAREL (PF)) 1.3 % (13.3 mg/mL) 266 mg, bupivacaine -epinephrin e-pf (SENSORCAIN E W/EPINEPHRI NE) 0.25 %-1:200,000 30 mL, NaCl 0.9% (NS) 70 mL 07-05 15:00: 00 07-05 16:10 :21 No PRN, Starting on Sat07/05/25 at 1000, Intra-op [facility] sodium chloride 0.9 % irrigation solution 07-05 14:45: 00 07-05 16:10 :21 No PRN, Starting on Sat07/05/25 at 0945, Until Sat07/05/25 at 1110, Intra-op [facility] celecoxib (CELEBREX) capsule 400 mg 07-05 12:30: 00 07-05 12:27 :00 No 400mg 400 mg, Oral, ONCE, 1 dose, On Sat07/05/25 at 0730, Routine, DSU Pre-op [facility] gabapentin (NEURONTIN) capsule 300 mg 07-05 12:30: 00 07-05 12:27 :00 No 300mg 300 mg, Oral, ONCE, 1 dose, On Sat07/05/25 at 0730, Routine, DSU Pre-op [facility] tranexamic acid (CYKLOKAPRO N) 1,000 mg/10 mL (100 mg/mL) 1,000 mg in NaCl 0.9% (NS) 110 mL V2B IV piggyback 07-05 05:00: 00 07-05 16:59 :00 No 1000mg [facility] aspirin 325 mg tablet 07-05 00:00: 00 08-05 04:59 :00 Yes [id number] 325mg Take 1 tablet by mouth in the morning and 1 tablet in the evening. Take with meals. For blood clot prevention . [facility] HYDROcodone -acetaminop hen 5-325 mg tablet 07-05 00:00: 07-13 04:59 :00 Yes [id number] 1{tbl} Take 1 tablet by mouth every 6 hours as needed for Pain (scale 7-10) for up to 7 days. [facility] metoprolol succinate 25 mg CSpX 06-15 09:35: 02 Yes Take by mouth. [facility] estradioL 0.01 % (0.1 mg/gram) vaginal cream 05-19 00:00: 00 Yes 1g Insert 1 g into vagina weekly. Uses at times [facility] nitrofurant oin 50 mg capsule 05-19 00:00: 00 Yes 50mg Take 1 capsule by mouth in the morning. [facility] buPROPion XL 300 mg 24 hr tablet 05-12 02:05: 20 Yes 300mg Take 1 tablet by mouth in the morning. [facility] montelukast 10 mg tablet 05-12 02:05: 20 Yes 10mg Take 1 tablet by mouth. [facility] sertraline HCl (SERTRALINE ORAL) 05-12 02:05: 20 Yes 25mg Take 25 mg by mouth in the morning. [facility] famotidine 20 mg tablet 03-03 00:00: 00 Yes 20mg Take 1 tablet by mouth in the morning and 1 tablet in the evening. [facility] famotidine 20 mg tablet 40 mg every 6 hours by oral route. famotidine 20 mg tablet 40 mg every 6 hours by oral route. 03-03 00:00: 00 No 40mg Q6H famotidine 20 mg tablet 40 mg every 6 hours by oral route. [facility] CLONAZEPAM ORAL 12-04 09:43: 48 Yes Take by mouth. [facility] rivastigmin e 4.6 mg/24 hour patch 12-04 00:00: 00 Yes [id number] 1{patch } Apply 1 Patch to skin daily. Call office for refills. [facility] neomycin-po lymyxin-hyd rocortisone otic solution 2020-12 00:00: 00 Yes [id number] 3[drp] Place 3 Drops in right ear 4 (four) times daily. [facility] pantoprazol e 20 mg EC tablet 2020-12 00:00: 00 Yes [id number] 20mg Take 1 tablet by mouth every morning. [facility] losartan-hy drochloroth iazide 50-12.5 mg per tablet 2020-12 00:00: 00 06-29 00:00 :00 No [id number] 1{tbl} Take 1 tablet by mouth daily. [facility] buPROPion XL 300 mg 24 hr tablet 07-28 10:17: 13 Yes 300mg Take 300 mg by mouth daily. [facility] montelukast 10 mg tablet 07-28 10:17: 13 Yes 10mg Take 10 mg by mouth. [facility] cephALEXin (KEFLEX) 500 mg capsule 07-25 00:00: 00 10-20 00:00 :00 No [id number] 500mg Take 1 capsule by mouth 2 (two) times daily. [facility] atorvastati n 20 mg tablet 07-21 00:00: 00 Yes [id number] 20mg Take 1 tablet by mouth at bedtime. [facility] IRON 325 mg (65 mg iron) tablet 07-21 00:00: 00 Yes [id number] 325mg Take 1 tablet by mouth 2 (two) times daily. [facility] traZODone 50 mg tablet 07-20 00:00: 00 Yes [id number] 50mg Take 1 tablet by mouth at bedtime. [facility] Diclofenac Sodium (VOLTAREN) 1 % gel 07-19 00:00: 00 Yes [id number] 103 Apply to area(s) 4 (four) times daily. Apply 4 g qid [facility] isosorbide mononitrate 60 mg 24 hr tablet 07-14 00:00: 00 Yes [id number] 60mg Take 1 tablet by mouth daily. [facility] amLODIPine 10 mg tablet 07-14 00:00: 00 Yes [id number] 10mg Take 1 tablet by mouth daily. [facility] escitalopra m oxalate 20 mg tablet 07-14 00:00: 00 Yes [id number] 20mg Take 1 tablet by mouth daily. [facility] pregabalin 150 mg capsule 07-14 00:00: 00 Yes [id number] 150mg Take 1 capsule by mouth at bedtime. [facility] losartan 25 mg tablet 07-14 00:00: 00 10-20 00:00 :00 No [id number] 25mg Take 1 tablet by mouth daily. [facility] melatonin 3 mg tablet 07-14 00:00: 00 10-20 00:00 :00 No [id number] 3mg Take 1 tablet by mouth at bedtime. [facility] Omeprazole 20 mg tablet 07-14 00:00: 00 10-20 00:00 :00 No [id number] 20mg Take 1 tablet by mouth 2 (two) times daily. [facility] estradiol 0.01% (0.1 mg/gram) vaginal cream Insert 0.5 g 3 times a week by vaginal route for 90 days. estradiol 0.01% (0.1 mg/gram) vaginal cream Insert 0.5 g 3 times a week by vaginal route for 90 days. No .5g Q56H estradiol 0.01% (0.1 mg/gram) vaginal cream Insert 0.5 g 3 times a week by vaginal route for 90 days. [facility] nitrofurant oin macrocrysta l 50 mg capsule Take 1 capsule every day by oral route for 45 days. nitrofurant oin macrocrysta l 50 mg capsule Take 1 capsule every day by oral route for 45 days. No 1capsul e(s) Q1D nitrofuran toin macrocryst al 50 mg capsule Take 1 capsule every day by oral route for 45 days. [facility] anastrozole 1 mg tablet 1 TABLET DAILY anastrozole 1 mg tablet 1 TABLET DAILY No anastrozol e 1 mg tablet 1 TABLET DAILY [facility] cefuroxime axetil 250 mg tablet TAKE 1 TABLET BY MOUTH TWICE A DAY cefuroxime axetil 250 mg tablet TAKE 1 TABLET BY MOUTH TWICE A DAY No cefuroxime axetil 250 mg tablet TAKE 1 TABLET BY MOUTH TWICE A DAY [facility] furosemide 20 mg tablet TAKE 1 TABLET BY MOUTH EVERY DAY furosemide 20 mg tablet TAKE 1 TABLET BY MOUTH EVERY DAY No furosemide 20 mg tablet TAKE 1 TABLET BY MOUTH EVERY DAY [facility] losartan potassium (bulk) 50 mg losartan potassium (bulk) 50 mg No losartan potassium (bulk) 50 mg [facility] pantoprazol e 40 mg tablet,peter yed release TAKE 1 TABLET BY MOUTH EVERY DAY pantoprazol e 40 mg tablet,peter yed release TAKE 1 TABLET BY MOUTH EVERY DAY No pantoprazo le 40 mg tablet,del ayed release TAKE 1 TABLET BY MOUTH EVERY DAY [facility] Probiotic Probiotic No Probiotic [facility] sertraline 25 mg tablet sertraline 25 mg tablet No sertraline 25 mg tablet [facility] trazodone 100 mg tablet TAKE 1 TABLET EVERY DAY AT BEDTIME FOR INSOMNIA trazodone 100 mg tablet TAKE 1 TABLET EVERY DAY AT BEDTIME FOR INSOMNIA No trazodone 100 mg tablet TAKE 1 TABLET EVERY DAY AT BEDTIME FOR INSOMNIA [facility] Cipro 500 mg tablet Take 1 tablet every 12 hours by oral route. Cipro 500 mg tablet Take 1 tablet every 12 hours by oral route. No 1 Q12H Cipro 500 mg tablet Take 1 tablet every 12 hours by oral route. [facility] metronidazo le metronidazo le No metronidaz ole [facility] phenazopyri dine 200 mg tablet TAKE ONE (1) CAPSULE(S) BY MOUTH THREE TIMES A DAY FOR TWO DAYS. phenazopyri dine 200 mg tablet TAKE ONE (1) CAPSULE(S) BY MOUTH THREE TIMES A DAY FOR TWO DAYS. No phenazopyr idine 200 mg tablet TAKE ONE (1) CAPSULE(S) BY MOUTH THREE TIMES A DAY FOR TWO DAYS. [facility] Vital Signs Vital Name Observation Time Observation Value Comments S jessica Systolic blood pressure 2025-08-19 16:06:00 207 mm[Hg] [facility] Diastolic blood pressure 2025-08-19 16:06:00 82 mm[Hg] [facility] Heart rate 2025-08-19 16:06:00 54 /min [facility] Body height 2025-08-19 16:05:00 147.3 cm per patient [facility] Oxygen saturation in Arterial blood by Pulse oximetry 2025-08-19 16:05:00 98 /min [facility] Systolic blood pressure 2025-07-22 13:13:00 185 mm[Hg] [facility] Diastolic blood pressure 2025-07-22 13:13:00 70 mm[Hg] [facility] Heart rate 2025-07-22 13:13:00 57 [facility] 2025-07-22 13:12:00 147.3 cm [facility] Body weight 2025-07-22 13:12:00 80.74 kg [facility] BMI 2025-07-22 13:12:00 37.20 kg/m2 [facility] Oxygen saturation in Arterial blood by Pulse oximetry 2025-07-22 13:12:00 98 /min [facility] Systolic blood pressure 2025-07-13 13:15:00 208 mm[Hg] [facility] Diastolic blood pressure 2025-07-13 13:15:00 85 mm[Hg] [facility] Heart rate 2025-07-13 13:15:00 54 /[facility] 2025-07-13 13:14:00 147.3 cm [facility] Oxygen saturation in Arterial blood by Pulse oximetry 2025-07-13 13:14:00 98 /min [facility] Systolic blood pressure 2025-07-08 21:31:00 179 mm[Hg] [facility] Diastolic blood pressure 2025-07-08 21:31:00 60 mm[Hg] [facility] Heart rate 2025-07-08 21:31:00 81 /min [facility] Body temperature 2025-07-08 21:31:00 36.94 [place] Respiratory rate 2025-07-08 21:31:00 16 /min [facility] Oxygen saturation in Arterial blood by Pulse oximetry 2025-07-08 21:31:00 97 /min [facility] Body height 2025-07-08 15:46:00 147.3 cm [facility] Body weight 2025-07-08 15:46:00 80.74 kg [facility] BMI 2025-07-08 15:46:00 37.20 kg/m2 [facility] Systolic blood pressure 2025-07-05 18:00:00 135 mm[Hg] [facility] Diastolic blood pressure 2025-07-05 18:00:00 49 mm[Hg] [facility] Heart rate 2025-07-05 18:00:00 55 /min [facility] Body temperature 2025-07-05 18:00:00 36.22 [facility] Respiratory rate 2025-07-05 18:00:00 9 /min [facility] Oxygen saturation in Arterial blood by Pulse oximetry 2025-07-05 18:00:00 99 /min [facility] Body weight 2025-06-29 15:00:00 80.74 kg [facility] BMI 2025-06-29 15:00:00 37.20 kg/m2 [facility] Systolic blood pressure 2025-07-05 17:00:00 125 mm[Hg] [facility] Diastolic blood pressure 2025-07-05 17:00:00 53 mm[Hg] [facility] Heart rate 2025-07-05 17:00:00 58 [facility] 2025-07-05 17:00:00 10 /min [facility] Oxygen saturation in Arterial blood by Pulse oximetry 2025-07-05 17:00:00 99 /min [facility] Body temperature 2025-07-05 16:11:00 36.11 [facility] Body weight 2025-06-29 15:00:00 80.74 kg [facility] BMI 2025-06-29 15:00:00 37.20 kg/m2 [facility] Systolic blood pressure 2025-06-15 14:35:00 132 mm[Hg] [facility] Diastolic blood pressure 2025-06-15 14:35:00 79 mm[Hg] [facility] Heart rate 2025-06-15 14:35:00 62 /min [facility] Respiratory rate 2025-06-15 14:35:00 20 /min [facility] Body height 2025-06-15 14:35:00 147.3 cm [facility] Body weight 2025-06-15 14:35:00 80.967 kg [facility] BMI 2025-06-15 14:35:00 37.31 kg/m2 [facility] Oxygen saturation in Arterial blood by Pulse oximetry 2025-06-15 14:35:00 100 /min [facility] Systolic blood pressure 2025-05-11 14:09:00 201 mm[Hg] [facility] Diastolic blood pressure 2025-05-11 14:09:00 74 mm[Hg] [facility] Heart rate 2025-05-11 14:09:00 47 /min [facility] Body height 2025-05-11 14:08:00 147.3 cm [facility] Body weight 2025-05-11 14:08:00 81.058 kg [facility] BMI 2025-05-11 14:08:00 37.35 kg/m2 [facility] Oxygen saturation in Arterial blood by Pulse oximetry 2025-05-11 14:08:00 99 /min [facility] Height 2025-04-23 00:00:00 58 [in_i] [facility] Weight 2025-04-23 00:00:00 178 [lb_av] [facility] BMI (Body Mass Index) 2025-04-23 00:00:00 37.2 kg/m2 [facility] BP Diastolic 2025-04-23 00:00:00 78 mm[Hg] [facility] BP Systolic 2025-04-23 00:00:00 148 mm[Hg] [facility] Systolic blood pressure 2021-12-04 15:39:00 147 mm[Hg] [facility] Diastolic blood pressure 2021-12-04 15:39:00 59 mm[Hg] [facility] Heart rate 2021-12-04 15:39:00 64 /min [facility] Body height 2021-12-04 15:39:00 152.4 cm [facility] Body weight 2021-12-04 15:39:00 61.1 kg [facility] BMI 2021-12-04 15:39:00 26.31 kg/m2 [facility] Oxygen saturation in Arterial blood by Pulse oximetry 2021-12-04 15:39:00 98 /min [facility] Procedures Procedure Date / Time Performed Performing Clinician Source XR KNEE 3 VW LEFT 2025-08-19 16:17:05 [facility] 2025-07-08 18:51:17 Chino Benitez [facility] CT ANGIOGRAM NECK 2025-07-08 18:51:17 Chino Benitez [facility] CT KNEE LEFT WO CONTRAST 2025-07-08 18:50:41 Chino George [facility] CT HEAD WO CONTRAST 2025-07-08 18:38:00 Chino Sarmiento [facility] XR KNEE 3 VW LEFT 2025-07-08 17:43:54 Chino Benitez [facility] HB ECG ROUTINE & RHYTHM STRIP 2025-07-08 17:40:42 Chino George [facility] URINALYSIS 2025-07-08 17:29:00 Chino George [facility] TROPONIN I 2025-07-08 17:23:00 Chino George [facility] COMP. METABOLIC PANEL (11453) 2025-07-08 17:23:00 Chino George [facility] CBC WITH DIFF 2025-07-08 17:23:00 Chino George [facility] XR KNEE <3 VW LEFT 2025-07-05 16:44:00 Alondra Saab [facility] [address] - [place] ARTHRP KNE CONDYLE&PLATU MEDIAL&LAT COMPARTMENTS 2025-07-05 13:53:00 Alondra Saab [facility] HB ABO GROUPING 2025-07-05 12:45:00 Alondra Saab [facility] HB ABO GROUPING 2025-07-05 12:45:00 Alondra Saab [facility] XR KNEE 3 VW LEFT 2025-05-11 14:38:38 Alondra Saab [facility] XR KNEE 3 VW RIGHT 2025-05-11 14:14:44 Alodnra Saab [facility] US, kidney 2025-04-30 00:00:[address], abdomen + pelvis, w/o contrast 2025-04-23 00:00:00 [facility] Medical Colpocleisis 2023-06-03 00:00:00 [facility] Mastectomy 2022-09-12 00:00:00 [facility] [id number] 2022-07-23 00:00:00 CHAAB.01 [facility] Cardiac - Coronary Artery Stent 2022-07-02 00:00:00 [facility] Medical Repair of Urinary Bladder 2008-12-02 00:00:00 [facility] Hysterectomy 1973-12-02 00:00:00 [facility] Encounters Start Date/Time End Date/Time Encounter Type Admission Type Attending Clinicians Care Facility Care Department Encounter ID Source 2025-08-19 11:04:49 2025-08-19 23:59:00 Hospital Encounter Ambrocio [facility]Abbi [facility] 1.2.840.114 350.1.13.10 4.2.7.2.686 [id number] [facility] 2025-08-19 11:00:00 2025-08-19 11:33:00 Office Visit Ambrocio ABBI LOUANN ABBI, [facility] 1.2.840.114 350.1.13.10 4.2.7.2.686 [id number] [facility] 2025-08-04 00:00:00 2025-08-04 10:02:08 Telephone Alondra Saab [facility] 1.2.840.114 350.1.13.10 4.2.7.2.686 [id number] [facility] 2025-06-24 00:00:00 2025-07-31 18:32:26 Patient Secure Msg Doctor Unassigned, [place] Doctor Unassigned, [place] [facility] 1.2.840.114 350.1.13.10 4.2.7.2.686 [id number] [facility] 2025-06-28 00:00:00 2025-07-31 18:25:57 Patient Secure Msg Doctor Unassigned, [place] Doctor Unassigned, [place] [facility] 1.2.840.114 350.1.13.10 4.2.7.2.686 [id number] [facility] 2025-07-22 08:00:00 2025-07-22 08:23:01 Office Visit R AbbiDanielle boydFormerly [facility] 1.2.840.114 350.1.13.10 4.2.7.2.686 [id number] [facility] 2025-07-20 00:00:00 2025-07-20 10:20:22 Telephone Alondra Saab [facility] 1.2.840.114 350.1.13.10 4.2.7.2.686 [id number] [facility] 2025-07-19 14:30:00 2025-07-19 14:30:00 Outpatient R ABBI, [facility] [id number] [facility] 2025-07-13 08:45:00 2025-07-13 08:45:00 Office Visit R Saab, Alondra [facility] 1.2.840.114 350.1.13.10 4.2.7.2.686 [id number] [facility] 2025-07-08 10:50:00 2025-07-08 16:55:00 Emergency X AUFDERHEIDE , CHINO AUFDERHEIDE , CHINO [facility] ERT [id number] [facility] 2025-07-05 07:05:00 2025-07-05 13:25:00 Hospital Encounter R ALONDRA SAAB CRAIG [facility] SOR [id number] [facility] 2025-07-05 09:30:00 2025-07-05 12:01:00 Surgery Alondra Saab [facility] 1.2.840.114 350.1.13.10 4.2.7.2.686 [id number] [facility] 2025-07-01 00:00:00 2025-07-01 14:05:20 Telephone Siddharth Alondra Asencio [facility] MED[facility] OFF[facility] BUILDING 1.2.840.114 350.1.13.10 4.2.7.2.686 [id number] [facility] 2025-06-29 13:26:30 2025-06-29 23:59:00 Hospital Encounter R Alondra Saab [facility] 1.2.840.114 350.1.13.10 4.2.7.2.686 [id number] [facility] 2025-06-29 13:26:27 2025-06-29 23:59:00 Hospital Encounter R ALONDRA SAAB CRAIG [facility] 1.2.840.114 350.1.13.10 4.2.7.2.686 [id number] [facility] 2025-06-29 13:45:00 2025-06-29 14:00:00 Enterprise Integration Developer Visit R Maribel, Adc Lab Main Alondra Saab Elif López, [facility] Lab Main [facility] 1.2.840.114 350.1.13.10 4.2.7.2.686 [id number] [facility] 2025-06-28 00:00:00 2025-06-28 15:40:31 Telephone Alondra Saab [facility] 1.2.840.114 350.1.13.10 4.2.7.2.686 [id number] [facility] 2025-06-25 10:15:00 2025-06-25 11:47:00 Ancillary Visit R ALONDRA SAAB SAAB ALONDRA [facility] PROFESSIO NAL BUILDING 1.2.840.114 350.1.13.10 4.2.7.2.686 [id number] [facility] 2025-06-17 00:00:00 2025-06-17 09:50:24 Prep for Procedure Alondra Saab [facility] MED[facility] BU[facility] 1.2.840.114 350.1.13.10 4.2.7.2.686 [id number] [facility] 2025-06-15 09:45:00 2025-06-15 10:13:03 Office Visit R Alondra Saab [facility] BUILDING 1.2.840.114 350.1.13.10 4.2.7.2.686 [id number] [facility] 2025-06-03 00:00:00 2025-06-03 00:00:00 Padma Epps, COMMERCIAL ROOFER: [address], [place] [address], [place] [address] , Ph. [facility] - GC_GCBZW_Jenny Golisano [facility]* [id number] [facility] 2025-05-19 00:00:00 2025-05-19 00:00:00 Vero Ortega MD: [address], [place] [address] , Ph. [facility] - GC_GCBZW_Jenny fonseca João* [id number] [facility] 2025-05-11 09:36:39 2025-05-11 23:59:00 Hospital Encounter R ALONDRA SAAB [facility] 1.2.840.114 350.1.13.10 4.2.7.2.686 [id number] [facility] 2025-05-11 08:30:00 2025-05-11 09:58:39 Office Visit R Alondra Saab [facility] 1.2.840.114 350.1.13.10 4.2.7.2.686 [id number] [facility] 2025-05-11 09:08:02 2025-05-11 09:35:00 Hospital Encounter R [facility]ONDRA [facility] 1.2.840.114 350.1.13.10 4.2.7.2.686 [id number] [facility] 2025-05-04 00:00:00 2025-05-04 00:00:00 Vero Ortega MD: [address], [place] [address] , Ph. [facility] - GC_GCBZW_Jenny fonseca [place]* [id number] [facility] 2025-04-30 00:00:00 2025-04-30 00:00:00 Vero Ortega MD: [address], [place] [address] , Ph. [facility] - GC_GCBZW_[facility]* [id number] [facility] 2025-04-23 00:00:00 2025-04-23 00:00:00 Vero Ortega MD: [address] [place] [address], [place] [address] , Ph. [facility] GC_GCBZW_[facility]* [id number] [facility] 2024-10-19 12:30:00 2024-10-19 13:15:00 Office Visit SelZane wheeler [facility] 1..840.114 350.1.13.70 8.2.7.2.686 [id number] Albar[facility] 2024-10-19 11:54:48 2024-10-19 13:15:00 Outpatient Elective SELBSTZANE MHEOUT MHEOUT [id number] [facility] 2024-07-31 16:33:00 2024-08-02 12:18:00 Inpatient EM Ronald Ochoa [facility] MAS4 [id number] [facility] 2024-07-27 12:41:08 2024-07-27 13:08:01 Outpatient Elective SELBSZANE Bnyum KAREN MHEOUT [id number] [facility] 2024-07-27 12:20:00 2024-07-27 12:30:00 Office Visit SelZane wheeler [facility] 1..840.114 350.1.13.70 8.2.7.2.686 [id number] Albaro asencio [facility] 2024-07-20 11:50:00 2024-07-20 12:53:49 Office Visit SelZane wheeler [facility] 1..840.114 350.1.13.70 8.2.7.2.686 [id number] Albaro Valderrama [facility] 2024-07-20 11:44:53 2024-07-20 12:53:49 Outpatient Elective ZANE MARI EOUT EOUT [id number] [facility] 2023-06-03 05:24:00 2023-06-04 10:26:00 Inpatient Vero Weems HCAPM MEDI.01 [id number] [facility] 2022-07-23 10:48:00 2022-07-24 15:28:00 Inpatient Kayden Domingo HCACL INTE.02 [id number] [facility] 2022-01-24 11:00:00 2022-01-24 11:00:00 Outpatient TRACY SCHMIDT [facility] [id number] [facility] 2022-01-24 11:00:00 2022-01-24 11:00:00 Outpatient TRACY SCHMIDT [facility] [id number] [facility] 2022-01-24 11:00:00 2022-01-24 11:00:00 Outpatient TRACY SCHMIDT [facility] [id number] [facility] 2022-01-05 10:30:00 2022-01-05 10:30:00 Outpatient PHILIP GRAJEDA [facility] [id number] [facility] 2021-12-04 09:20:00 2021-12-04 10:33:16 Outpatient SHAGGY GENTILE HOWARD [facility] [id number] [facility] 2021-12-04 09:20:00 2021-12-04 10:33:16 Office Visit Shaggy Villalpando [facility] 1.2.840.114 350.1.13.10 4.2.7.2.686 [id number] [facility] 2021-11-30 00:00:00 2021-11-30 00:00:00 Letter (Out) Maulik Sherman [facility] BU[facility] 1.2.840.114 350.1.13.10 4.2.7.2.686 [id number] [facility] 2021-11-30 00:00:00 2021-11-30 00:00:00 Patient Secure Msg Doctor Unassigned, [place] [facility] 1..840.114 350.1.13.10 4.2.7.2.686 [id number] [facility] 2021-11-28 20:40:00 2021-11-28 20:40:00 Outpatient R BISI FLORES [facility] [id number] [facility] 2021-11-28 11:00:00 2021-11-28 12:13:06 Outpatient R WHIT ORLYTUYET SHERMAN CAROLTabChichi [facility] [id number] [facility] 2021-11-28 11:00:00 2021-11-28 12:13:06 Office Visit Whit Orlyalayna [facility] BUILDING 1.2.840.114 350.1.13.10 4.2.7.2.686 [id number] [facility] 2021-11-28 11:00:00 2021-11-28 12:13:06 Outpatient R WHIT CAROLALAYNA SHERMAN MAULIK [facility] [id number] [facility] 2021-11-28 09:20:00 2021-11-28 09:32:16 Outpatient R BISI FLORES [facility] [id number] [facility] 2021-11-28 09:20:00 2021-11-28 09:32:16 Urgent Care Bisi Flores [facility] 1..840.114 350.1.13.10 4.2.7.2.686 [id number] [facility] 2021-11-27 00:00:00 2021-11-27 00:00:00 Telephone Tracy Harris [facility] PROFESSIO NAL BUILDING 1..840.114 350.1.13.10 4.2.7.2.686 [id number] [facility] 2021-10-31 00:00:00 2021-10-31 00:00:00 Patient Secure Msg Doctor Unassigned, [place] [facility] 1.840.114 350.1.13.10 4.2.7.2.686 [id number] [facility] 2021-10-30 09:35:25 2021-10-30 23:59:00 Outpatient R FAITHRosaJONAH [facility] [id number] [facility] 2021-10-30 09:35:25 2021-10-30 23:59:00 Hospital Encounter Jonah Otero [facility] 1..840.114 350.1.13.10 4.2.7.2.686 [id number] [facility] 2021-10-29 11:07:00 2021-10-29 12:25:00 Emergency X ANA WHITEHEAD [facility] ERT [id number] [facility] 2021-10-29 11:07:00 2021-10-29 12:25:00 Emergency WhiteheadAna arora [facility] 1..840.114 350.1.13.10 4.2.7.2.686 [id number] [facility] 2021-10-29 11:07:00 2021-10-29 12:25:00 Emergency X WHITEHEADANA ARORA [facility] ERT [id number] [facility] 2021-10-20 13:45:00 2021-10-20 13:45:00 Outpatient R TRACY HARRIS [facility] [id number] [facility] 2021-10-20 11:00:00 2021-10-20 13:18:32 Outpatient R TRACY HARRIS [facility] [id number] [facility] 2021-10-20 10:53:42 2021-10-20 13:18:32 Office Visit Tracy Harris [facility] PROFESSIO [facility] BUILD[facility] 1.2840.114 350.1.13.10 4.2.7.2.686 [id number] [facility] 2021-10-20 13:00:33 2021-10-20 13:15:33 Enterprise Integration Developer Visit Pob, Adc Lab Main Kimberly [facility] BUILDING 1.2.840.114 350.1.13.10 4.2.7.2.686 [id number] [facility] 2021-10-20 00:00:00 2021-10-20 00:00:00 Orders Only Doctor Unassigned, [place] [facility] 1.2840.114 350.1.13.10 4.2.7.2.686 [id number] [facility] 2021-10-02 18:03:00 2021-10-02 21:16:00 Emergency X PAM WOOTEN [facility] ERT [id number] [facility] 2021-10-02 18:03:00 2021-10-02 21:16:00 Emergency X PAM WOOTEN [facility] ERT [id number] [facility] 2021-10-02 18:03:00 2021-10-02 21:16:00 Emergency Pam Wooten R [facility] 1.2840.114 350.1.13.10 4.2.7.2.686 [id number] [facility] 2021-09-16 00:00:00 2021-09-16 00:00:00 Patient Secure Msg Doctor Unassigned, [place] [facility] 1.2.840.114 350.1.13.10 4.2.7.2.686 [id number] [facility] 2021-09-06 12:32:10 2021-09-06 13:32:10 [facility] 1.2840.114 350.1.13.10 4.2.7.2.686 [id number] [facility] 2021-09-06 13:00:00 2021-09-06 13:00:00 Outpatient JONAH DAWKINS [facility] [id number] [facility] 2021-09-06 13:00:00 2021-09-06 13:00:00 Outpatient [facility] [id number] [facility] 2021-09-06 00:00:00 2021-09-06 00:00:00 Telephone Do Arboleda [facility] 1.2.840.114 350.1.13.10 4.2.7.2.686 [id number] [facility] 2021-08-09 00:00:00 2021-08-09 00:00:00 Patient Secure Msg Doctor Unassigned, [place] [facility] 1.2.840.114 350.1.13.10 4.2.7.2.686 [id number] [facility] 2021-08-04 09:20:00 2021-08-04 09:20:00 Outpatient SHAGGY GENTILE HOWARD [facility] [id number] [facility] 2021-08-04 09:20:00 2021-08-04 09:20:00 Outpatient SHAGGY GENTILE HOWARD [facility] [id number] [facility] 2021-08-04 00:00:00 2021-08-04 00:00:00 Patient Secure Msg Doctor Unassigned, [place] [facility] 1.2840.114 350.1.13.10 4.2.7.2.686 [id number] [facility] 2021-08-03 09:40:00 2021-08-03 09:40:00 Outpatient R KIMBERLY [facility] [id number] [facility] 2021-07-28 09:40:37 2021-07-28 12:11:09 [facility] 1.2840.114 350.1.13.10 4.2.7.2.686 [id number] [facility] 2021-07-28 10:00:00 2021-07-28 10:00:00 Outpatient R [facility] [id number] 2021-07-28 00:00:00 2021-07-28 00:00:00 Orders Only Doctor Unassigned, [place] [facility] 1.284.114 350.1.13.10 4.2.7.2.686 [id number] [facility] 2021-07-27 12:52:31 2021-07-27 23:59:00 Hospital Encounter yogesh [facility] 1.2840.114 350.1.13.10 4.2.7.2.686 [id number] [facility] 2021-07-27 12:52:31 2021-07-27 23:59:00 [place] 1.2.840.114 350.1.13.10 4.2.7.2.686 [id number] [facility] 2021-07-27 12:51:56 2021-07-27 12:51:56 Hospital Encounter Tracy Harris [facility] 1.2.840.114 350.1.13.10 4.2.7.2.686 [id number] [facility] 2021-07-27 12:51:56 2021-07-27 12:51:56 Hospital Encounter Tracy Harris [facility] 1.2840.114 350.1.13.10 4.2.7.2.686 [id number] [facility] 2021-07-27 00:00:00 2021-07-27 00:00:00 Outpatient R TRACY HARRIS [facility] [id number] [facility] 2021-07-27 00:00:00 2021-07-27 00:00:00 Patient Secure Msg Doctor Unassigned, [place] [facility] 1.2840.114 350.1.13.10 4.2.7.2.686 [id number] [facility] 2021-07-26 00:00:00 2021-07-26 00:00:00 Telephone Tracy Harris [facility] Building 1.2840.114 350.1.13.10 4.2.7.2.686 [id number] [facility] 2021-07-26 00:00:00 2021-07-26 00:00:00 Telephone Tracy Harris [facility] Building 1.2840.114 350.1.13.10 4.2.7.2.686 [id number] [facility] 2021-07-25 09:18:21 2021-07-25 09:59:32 Office Visit Berna Dong [facility] Building 1.2840.114 350.1.13.10 4.2.7.2.686 [id number] [facility] 2021-07-25 09:18:21 2021-07-25 09:59:32 [facility] 1.114 350.1.13.10 4.2.7.2.686 [id number] [facility] 2021-07-25 09:15:00 2021-07-25 09:15:00 Outpatient R BERNA DONG [facility] [id number] [facility] 2021-07-25 00:00:00 2021-07-25 00:00:00 Patient Secure Msg Doctor Unassigned, [place] [facility] 1.114 350.1.13.10 4.2.7.2.686 [id number] [facility] 2021-07-21 11:45:00 2021-07-21 23:59:00 Hospital Encounter Tracy Harris [facility] 1.114 350.1.13.10 4.2.7.2.686 [id number] [facility] 2021-07-21 09:17:42 2021-07-21 09:57:42 Office Visit Tracy Harris [facility] Building 1..114 350.1.13.10 4.2.7.2.686 [id number] [facility] 2021-07-21 09:40:00 2021-07-21 09:40:00 Outpatient R TRACY HARRIS [facility] [id number] [facility] 2021-07-21 08:07:36 2021-07-21 08:22:36 Enterprise Integration Developer Visit Pob, Adc Lab Main Kimberly [facility] Building 1.84.114 350.1.13.10 4.2.7.2.686 [id number] [facility] 2021-07-19 00:00:00 2021-07-19 00:00:00 Patient Secure Msg Doctor Unassigned, [place] [facility] 1.2.840.114 350.1.13.10 4.2.7.2.686 [id number] [facility] 2021-07-14 14:02:17 2021-07-14 16:02:16 Office Visit Tracy Harris [facility] 1.2.840.114 350.1.13.10 4.2.7.2.686 [id number] [facility] 2021-07-14 15:45:18 2021-07-14 15:45:27 Office Visit Kimberly [facility] 1.2840.114 350.1.13.10 4.2.7.2.686 [id number] [facility] 2021-07-14 14:00:00 2021-07-14 14:00:00 Outpatient R TRACY HRARIS [facility] [id number] [facility] 2021-07-14 00:00:00 2021-07-14 00:00:00 Telephone Tracy Harris [facility] 1.2.840.114 350.1.13.10 4.2.7.2.686 [id number] [facility] 2021-07-05 13:17:00 2021-07-05 17:36:00 Emergency Cresencio Bush [facility] 1.2.840.114 350.1.13.10 4.2.7.2.686 [id number] [facility] 2021-07-05 13:17:00 2021-07-05 13:17:00 Emergency X CRESENCIO BUSH [facility] ERT [id number] [facility] Results Test Description Test Time Test Comments Results Result Comments Source XR Knee 3 vw left 18:14:52 EXAM: XR KNEE <3 VW LEFT HISTORY: 84 years old Female with left TKR follow-up. COMPARISON: X-ray left knee, 3 view from 07/08/2025. FINDINGS: Radiographs of the left knee demonstrate a left total knee arthroplasty inanatomic alignment without acute periprosthetic fracture or lucency. Smalljoint effusion is mild residual soft tissue swelling. No erosions orperiosteal reaction. Vascular calcifications are again noted. [facility] CT Knee left wo contrast 19:54:49 ORDERING PHYSICIAN: CHINO GEORGE. HISTORY: Knee replacement, periprosthetic fracture suspected TECHNIQUE: CT left knee without contrast. ?This examination was performedaccording to ALARA (As Low As Reasonably Achievable). COMPARISON: None. FINDINGS: Bones/Joints: A total knee arthroplasty is in anatomic alignment. Nofracture is identified. Blood and gas foci are seen within the reamingtrack located within the central intramedullary distal femur. There is atrace joint effusion. Soft Tissue: Muscles maintain normal bulk and density. Vascularcalcifications are present. Scattered periarticular gas foci are compatiblewith recent postoperative state. There are anterior surgical skin chon. [facility] CT Angiogram neck 19:10:33 CT ANGIOGRAM HEAD, CT ANGIOGRAM NECK HISTORY: Female 84 years Vertigo, central COMPARISON: None TECHNIQUE: CT angiographic images of the head and neck were obtained afteradministration of IV contrast. Multiplanar reformats including maximumintensity projection images submitted for review. FINDINGS: CTA HEAD: The PICA origin is visualized bilaterally. The basilar artery ishypoplastic but patent. The superior cerebellar arteries are unremarkable.The posterior cerebral arteries are patent. origin of the leftposterior cerebral artery. The distal cervical, petrous, cavernous and supraclinoid internal carotidarteries are patent. Atherosclerosis of the carotid siphons withouthigh-grade stenosis. The anterior and middle cerebral arteries are unremarkable. An anteriorcommunicating artery is visualized. The dural venous sinuses are grossly patent. CT ANGIOGRAM NECK: Classic three-vessel arch anatomy identified. Atherosclerosis of the aorticarch. The great vessel ostia are patent. The subclavian arteries demonstrate normal contrast opacification. The bilateral common and internal carotid arteries are patent. There isatherosclerosis of the carotid bulbs without high-grade stenosis. The vertebral artery ostia patent. No flow-limiting stenosis is identifiedwithin the cervical segments. ? The visualized lung morel are clear. Surgical clips are noted in the right neck. [facility] CT Angiogram head 19:10:33 CT ANGIOGRAM HEAD, CT ANGIOGRAM NECK HISTORY: Female 84 years Vertigo, central COMPARISON: None TECHNIQUE: CT angiographic images of the head and neck were obtained afteradministration of IV contrast. Multiplanar reformats including maximumintensity projection images submitted for review. FINDINGS: CTA HEAD: The PICA origin is visualized bilaterally. The basilar artery ishypoplastic but patent. The superior cerebellar arteries are unremarkable.The posterior cerebral arteries are patent. origin of the leftposterior cerebral artery. The distal cervical, petrous, cavernous and supraclinoid internal carotidarteries are patent. Atherosclerosis of the carotid siphons withouthigh-grade stenosis. The anterior and middle cerebral arteries are unremarkable. An anteriorcommunicating artery is visualized. The dural venous sinuses are grossly patent. CT ANGIOGRAM NECK: Classic three-vessel arch anatomy identified. Atherosclerosis of the aorticarch. The great vessel ostia are patent. The subclavian arteries demonstrate normal contrast opacification. The bilateral common and internal carotid arteries are patent. There isatherosclerosis of the carotid bulbs without high-grade stenosis. The vertebral artery ostia patent. No flow-limiting stenosis is identifiedwithin the cervical segments. ? The visualized lung morel are clear. Surgical clips are noted in the right neck. [facility] CT Head wo contrast 18:44:11 EXAM: CT HEAD WO CONTRAST HISTORY: 84 years-old Female; Provided indication: Mental status change,unknown cause . TECHNIQUE: Axial CT of the head was performed and reconstructed at 5 mmintervals. Coronal and sagittal reformatted images were generated. COMPARISON: MRI brain 10/30/2021 FINDINGS: The ventricles and cerebral sulci are normal in caliber and configuration.No midline shift or pathological extra-axial fluid collection is present.The basal cisterns are unremarkable. No acute intracranial hemorrhage or significant mass effect is visualized.No parenchymal attenuation abnormality is seen. The de la cruz-white matterdifferentiation is preserved. Trace fluid within the right mastoid air cells. The paranasal air sinusesare clear. The calvarium and central skull base are unremarkable. [facility] (66134)2025-07-08 18:02:37* Test Item Value Reference Range Interpretation Comme nts NA (test code = 5876577617) 136 mmol/L 135-145 K (test code = 6028736430) 4.2 mmol/L 3.5-5.0 CL (test code = 3113131073) 108 mmol/L 98-108 CO2 TOTAL (test code = 8079603090) 21 mmol/L 23-31 L AGAP (test code = 5372033481) 7 2-16 BUN (test code = 8037483810) 21 mg/dL 7-23 GLUCOSE (test code = 6126104403) 145 mg/dL 70-110 H CREATININE (test code = 2160-0) 1.25 mg/dL 0.50-1.04 H TOTAL BILI (test code = 8428848420) 1 mg/dL 0.1-1.1 CALCIUM (test code = 4243936230) 8.1 mg/dL 8.6-10.6 L T PROTEIN (test code = 3738469555) 6.3 g/dL 6.3-8.2 ALBUMIN (test code = 4994276072) 3.5 g/dL 3.5-5.0 ALK PHOS (test code = 0527681435) 77 U/L 34-122 ALTv (test code = 1742-6) 14 U/L 5-35 AST(SGOT) (test code = 0469297683) 20 U/L 13-40 eGFR (test code = 31708-2) 42.3 mL/min/1.73m2 CKD-EPI eGFR (2020). Assuming creatinine has been stable day-to-day for at least three months, the eGFR indicates Category G3b (30 - 44 mL/min/1.73 m2) Lab Interpretation (test code = 36653-9) [facility] [id number] 17:53:50EXAM: XR KNEE 3 VW LEFT HISTORY: left knee pain COMPARISON: Radiographs 07/05/2025. FINDINGS: Radiographs of the left knee demonstrate a left total knee arthroplasty inanatomic alignment without acute periprosthetic fracture seen. No erosionsor periosteal reaction is seen. There is interval decrease in size of jointeffusion and interval decrease in associated intra-articular and softtissue gas. Mild residual soft tissue swelling with overlying surgicalstaples is noted. Arterial vascular calcifications are present.[facility] with [id number] 17:43:45* Test Item Value Reference Range Interpretation Comme nts WBC (test code = 6690-2) 11.32 4.30-11.10 H RBC (test code = 789-8) 2.98 3.93-5.25 L HGB (test code = 718-7) 8.9 g/dL 11.6-15.0 L HCT (test code = 4544-3) 28.6 % 35.7-45.2 L MCV (test code = 787-2) 96 fL 80.6-95.5 H MCH (test code = 785-6) 29.9 pg 25.9-32.8 MCHC (test code = 786-4) 31.1 g/dL 31.6-35.1 L RDW-SD (test code = 45946-7) 49.6 fL 39.0-49.9 RDW-CV (test code = 788-0) 14.2 % 12.0-15.5 PLT (test code = 777-3) 142 166-358 L MPV (test code = 69756-4) 11.8 fL 9.5-12.9 NRBC/100 WBC (test code = 3760060336) 0 0.0-10.0 NRBC x10^3 (test code = 6210906710) See_Comment [Automated messa ge] The system which generated this result transmitted reference range: 10*3/?L. The reference range was not used to interpret this result as normal/abnormal. GRAN MAT (NEUT) % (test code = 770-8) 83.8 % IMM GRAN % (test code = 1067785778) 0.4 % LYMPH % (test code = 736-9) 8.6 % MONO % (test code = 5905-5) 6.4 % EOS % (test code = 713-8) 0.5 % BASO % (test code = 706-2) 0.3 % GRAN MAT x10^3(ANC) (test code = 4857090903) 9.48 10*3/uL 1.88-7.09 H IMM GRAN x10^3 (test code = 3533217166) 0.05 10*3/uL 0.00-0.06 LYMPH x10^3 (test code = 731-0) 0.97 10*3/uL 1.32-3.29 L MONO x10^3 (test code = 742-7) 0.73 10*3/uL 0.33-0.92 EOS x10^3 (test code = 711-2) 0.06 10*3/uL 0.03-0.39 BASO x10^3 (test code = 704-7) 0.03 10*3/uL 0.01-0.07 Lab Interpretation (test code = 69421-7) [facility] [id number] 21:26:54EXAM: XR KNEE <3 VW LEFT HISTORY: 84 years-old Female; Provided indication: s/p knee arthroplasty . COMPARISON: None FINDINGS: Radiographs of the left knee demonstrate interval placement of total kneearthroplasty with expected soft tissue and intra-articular gas and smallknee joint effusion. There is no acute periprosthetic fracture. Surgicalstaples overlying the anterior skin are seen. Vascular calcifications arenoted. Diffuse soft tissue swelling is present. [facility] Screen - This is a pre-surgical type and screen. ONCE [id number] 13:24:00* Test Item Value Reference Range Interpretation Comme nts ABO & RH (test code = 20) O POSITIVE IAT (test code = 1185) Negative [facility] BranchType and Screen - This is a pre-surgical type and screen. ONCE [id number] 13:24:00* Test Item Value Reference Range Interpretation Comme nts ABO & RH (test code = 20) O POSITIVE IAT (test code = 1185) Negative [facility], [id number] 11:58:25* Test Item Value Reference Range Interpretation Comme nts Leukocytes (test code = Leukocytes) Negative Nitrite (test code = Nitrite) negative Urobilinogen (test code = Urobilinogen) Normal Protein (test code = Protein) 2+ pH (test code = pH) 6.0 Blood (test code = Blood) Negative Specific [place] (test code = Specific [place]) 1.015 Ketone (test code = Ketone) Negative Bilirubin (test code = Bilirubin) Negative Glucose (test code = Glucose) Negative Appearance (test code = Appearance) Clear Color (test code = Color) Yellow [facility] Medicalurinalysis, [id number] 14:15:47* Test Item Value Reference Range Interpretation Comme nts Leukocytes (test code = Leukocytes) Negative Nitrite (test code = Nitrite) negative Urobilinogen (test code = Urobilinogen) Normal Protein (test code = Protein) Trace pH (test code = pH) 6.0 Blood (test code = Blood) Negative Specific [place] (test code = Specific [place]) 1.010 Ketone (test code = Ketone) Negative Bilirubin (test code = Bilirubin) Negative Glucose (test code = Glucose) Negative Appearance (test code = Appearance) Slightly Cloudy Color (test code = Color) Yellow [facility] Medicalurinalysis, [id number] 15:40:58* Test Item Value Reference Range Interpretation Comme nts Leukocytes (test code = Leukocytes) Negative Nitrite (test code = Nitrite) negative Urobilinogen (test code = Urobilinogen) Normal Protein (test code = Protein) Negative pH (test code = pH) 6.0 Blood (test code = Blood) Negative Specific [place] (test code = Specific [place]) 1.015 Ketone (test code = Ketone) Negative Bilirubin (test code = Bilirubin) Negative Glucose (test code = Glucose) Negative Appearance (test code = Appearance) Slightly Cloudy Color (test code = Color) Yellow [facility] Medicalmeasurement of post-voiding residual urine and/or bladder capacity (PROC)2025-04-23 15:11:00* Test Item Value Reference Range Interpretation Comme nts (PVR) (test code = (PVR)) 15 [facility] [id number] 11:14:00* Test Item Value Reference Range Interpretation Comme nts GLUBED (test code = GLUBED) 176 mg/dL 70-105 H Performed by cer tified molybdenum steamer operator at [facility] COMPREHENSIVE METABOLIC [id number] 09:17:00* Test Item Value Reference Range Interpretation [...] ALKP) 73 U/L 50-136 N CBC W/AUTO [id number] 09:01:00* Test Item Value Reference Range Interpretation [...] (shoaib t code = RBCM) NO NORMAL [id number] 05:34:00* Test Item Value Reference Range Interpretation Comme nts GLUBED (test code = GLUBED) 148 mg/dL 70-105 H Performed by cer tified molybdenum steamer operator at [facility] [id number] 00:08:00* Test Item Value Reference Range Interpretation Comme nts GLUBED (test code = GLUBED) 119 mg/dL 70-105 H Performed by cer tified molybdenum steamer operator at [facility] COMPREHENSIVE METABOLIC [id number] 12:30:00* Test Item Value Reference Range Interpretation [...] code = ALKP) 57 U/L 50-136 N [id number] 12:30:00* Test Item Value Reference Range Interpretation Comme nts GLYCOSYLATED HEMOGLOBIN (HA1C) (test code = GLYHGB) 5.8 % <5.7 H SUGGESTED D IAGNOSIS INTERPRETATION Normal: <5.7% Prediabetes: 5.7 - 6.4% Diabetic: >/= 6.5%* DUE TO METHOD REVISION, REFERENCE RANGE HAS BEEN UPDATED * ESTIMATED AVERAGE GLUCOSE (test code = EAG) 120 MG/DL <126 CBC W/AUTO [id number] 05:49:00* Test Item Value Reference Range Interpretation [...] code = RBCM) NO NORMAL ARTERIAL BLOOD [id number] 17:37:00* Test Item Value Reference Range Interpretation [...] FIO2A) 21.00 % PaO2/FiO2 (test code = RQA8DSJ7) 360.00 mm/Hg ABG VENT MODE (test code [...] METHGB) 1.10 % 0.0-3.0 N COMPREHENSIVE METABOLIC [id number] 17:33:00* Test Item Value Reference Range Interpretation [...] = ALKP) 70 U/L 50-136 N LACTIC [id number] 17:16:00* Test Item Value Reference Range Interpretation Comme nts LACTIC ACID (test code = LACT) 1.8 mmol/l 0.4-2.0 N LACTIC [id number] 16:20:00* Test Item Value Reference Range Interpretation Comme nts LACTIC ACID (test code = LACT) 2.5 mmol/l 0.4-2.0 H UA RFLX MICROSCOPIC [id number] 15:54:00* Test Item Value Reference Range Interpretation [...] Dysuria/FrequencyURINE SOURCE: CLEAN CATCH URINE COMPREHENSIVE METABOLIC [id number] 15:25:00* Test Item Value Reference Range Interpretation [...] code = ALKP) 73 U/L 50-136 N [id number] 15:25:00* Test Item Value Reference Range Interpretation Comme nts LIPASE (test code = LIP) 27 U/L 13-75 N TROPI (HIGH SENSITIVITY)2024-07-31 15:25:00* Test Item Value Reference Range Interpretation Comme nts TROPI (HIGH SENSITIVITY) (test code = TROPI) 13 pg/ml <=3.0 N HIGH SENSITIVITY TROPONIN MEASUREMENT/RANGES--------- Ass ay : Units : Normal : Risk Stratification : High : : (Detectable : Limit(Suggestive of : AboveTNIH : : Limit) : sequential testing) : 99th : : : : % ile --------FEMALES: pg/ml : <= 3.0 : 3.1 - 54 : >54 --------MALES : pg/ml : <= 3.0 : 3.1 - 78 : >78 --------- CBC W/AUTO [id number] 15:05:00* Test Item Value Reference Range Interpretation [...] t code = RBCM) NO NORMAL urinalysis, [id number] 12:40:14* Test Item Value Reference Range Interpretation Comme nts Leukocytes (test code = Leukocytes) 1+ Nitrite (test code = Nitrite) negative Urobilinogen (test code = Urobilinogen) Normal Protein (test code = Protein) 2+ pH (test code = pH) 6.0 Blood (test code = Blood) Non-Hemolyzed: Trace Specific [place] (test code = Specific [place]) 1.010 Ketone (test code = Ketone) Negative Bilirubin (test code = Bilirubin) Negative Glucose (test code = Glucose) Negative Appearance (test code = Appearance) Clear Color (test code = Color) Yellow [facility], [id number] 15:24:55* Test Item Value Reference Range Interpretation Comme nts Leukocytes (test code = Leukocytes) Negative Nitrite (test code = Nitrite) negative Urobilinogen (test code = Urobilinogen) Normal Protein (test code = Protein) 1+ pH (test code = pH) 6.5 Blood (test code = Blood) Non-Hemolyzed: Trace Specific [place] (test code = Specific [place]) 1.010 Ketone (test code = Ketone) Negative Bilirubin (test code = Bilirubin) Negative Glucose (test code = Glucose) Negative Appearance (test code = Appearance) Clear Color (test code = Color) Yellow [facility] MedicalBacteria identified in Urine by [id number] 00:00:00* Test Item Value Reference Range Interpretation Comme nts culture, urine (test code = culture, urine) SEE BELOW no growth A [facility] MedicalUrinalysis complete W Reflex Culture panel - [id number] 00:00:00* Test Item Value Reference Range Interpretation [...] code = WBC, urine) >100 0-5 H [facility] Medicalurinalysis, [id number] 13:29:00* Test Item Value Reference Range Interpretation Comme nts Leukocytes (test code = Leukocytes) 2+ Nitrite (test code = Nitrite) negative Urobilinogen (test code = Urobilinogen) Normal Protein (test code = Protein) 1+ pH (test code = pH) 6.0 Blood (test code = Blood) Non-Hemolyzed: Moderate Specific [place] (test code = Specific [place]) 1.015 Ketone (test code = Ketone) Negative Bilirubin (test code = Bilirubin) Negative Glucose (test code = Glucose) Negative Appearance (test code = Appearance) Clear Color (test code = Color) Yellow [facility] MedicalGLUCOSE BEDSIDE [id number] 07:37:00* Test Item Value Reference Range Interpretation Comme nts GLUCOSE BEDSIDE TESTING (shoaib t code = GLUBED) 110 mg/dL 70-110 N CBC W/AUTO [id number] 05:14:00* Test Item Value Reference Range Interpretation [...] c ode = MDIFF) NO DIFF/SCN CRITERIA [id number] 05:12:00* Test Item Value Reference Range Interpretation Comme nts MAGNESIUM (test code = MAG) 1.9 MG/DL 1.8-2.4 N Comment: my orderGLUCOSE BEDSIDE [id number] 16:18:00* Test Item Value Reference Range Interpretation Comme nts GLUCOSE BEDSIDE TESTING (shoaib t code = GLUBED) 230 mg/dL 70-110 H GLUCOSE BEDSIDE [id number] 15:39:00* Test Item Value Reference Range Interpretation Comme nts GLUCOSE BEDSIDE TESTING (shoaib t code = GLUBED) 172 mg/dL 70-110 H GLUCOSE BEDSIDE [id number] 12:15:00* Test Item Value Reference Range Interpretation Comme nts GLUCOSE BEDSIDE TESTING (shoaib t code = GLUBED) 166 mg/dL 70-110 H - XR CHEST 1 [id number] 14:39:00 [facility] [facility] : 1940 Sex: FName: MADISON MAN [facility] : 1940 Age/S: 82 / F [address] Unit #: [id number] Loc: [place] [address] Phys: Tha Mc MD Acct: [id number] Dis Date: Status: PRE SDC PHONE #: [phone] Exam Date: 05/23/20231420 FAX #: Reason: PRE OP EXAMS: CPT: [id number] XR CHEST 1 V 87020 Fluoro Time: DAP (Gy m2): Air Kerma [...] Mc MD PAGE 1 Signed Report Name: MADISON MAN Bryan : 1940 Age/S: 82/ F [address] Unit #: [id number] Loc: [place] [address] Phys: Tha Mc MD Acct: [id number] Dis Date: Status: PRE SDC PHONE #: [phone] Exam Date: 05/23/2023 1421 FAX #: Reason: PRE OPEXAMS: CPT: [id number] XR CHEST 1 V 36483 Fluoro Time: DAP (Gy m2): Air Kerma (mGy): (Continued) Technologist: Fatimah Spear Trnscb Date/Time: 05/23/2023 (3499) ShirleneSI1 Orig Print D/T: S: 05/23/2023 (8065) PAGE 2 Signed ReportTHROMBOPLASTIN TIME [id number] 14:03:00* Test Item Value Reference Range Interpretation Comme nts THROMBOPLASTIN TIME PARTIAL (test code = PTT) 34.0 SECONDS 26-35 N PROTHROMBIN [id number] 14:03:00* Test Item Value Reference Range Interpretation [...] Myocardial Infarction (to prevent recurrent infarct). URINALYSIS [id number] 13:52:00* Test Item Value Reference Range Interpretation [...] A Urine Specimen Type: Clean CatchBASIC METABOLIC [id number] 13:52:00* Test Item Value Reference Range Interpretation [...] CA) 8.4 MG/DL 8.5-10.1 L CBC W/AUTO [id number] 13:38:00* Test Item Value Reference Range Interpretation [...] c ode = MDIFF) NO DIFF/SCN CRITERIA [id number] 15:01:00* Test Item Value Reference Range Interpretation Comme nts SURGICAL (test code = SR) -----RUN DATE: 07/25/22 [place] - LAB PAGE 1 RUN TIME: 1501 Specimen Inquiry RUN USER: INTERFACE -----PATIENT: MADISON MAN LOC: JORJE U #: [id number] AGE/SX: 81/F [place] [facility] [place] DR: Rusty Angeles : [birth year] BED: 1 DIS: 07/24/22 STATUS: DIS IN TLOC: ----- SPEC #: [id number] RECD: 07/23/22 STATUS: DOTTIE GALEANO #: [id number] DIEGO: 07/23/22- SUBM DR: Rusty Angeles MD ENTERED: 07/23/22 SP TYPE: SURGICAL OTHR DR: Vikram Orr MD, Anas MDORDERED: 62419, 64613, ANATOMIC SPEC COPIES TO: Rusty Angeles MD [address] [facility] [place] [id number] Vikram rOr MD [address] [facility] [place] [address] Kimber Bobby MD [address] [place] [address] PROCEDURES: 62830 (07/25/22-1456) 53197 (07/23/22-1116) TISSUES: A. CAROTID PLAQUE WITH DECAL - RIGHT FINAL DIAGNOSIS Right carotid plaque, excision:Plaque tissue with calcification and degenerative changes. GROSS DESCRIPTION The specimen received in formalin in a container labeled with the patient's name anddesignated right carotid plaque consists of multiple fragments of soft tissue which inaggregate measures 2.2 cm in greatest dimension. Practicing Dermatologist sections are submitted in1 cassette after decalcification. Technical component performed at [facility],[address] [place] [address], [place] [address] Unless gross only, the diagnosis is based upon microscopic examination.Immunohistochemis try: This test was developed and its performance characteristics CONTINUED ON NEXT PAGE -----RUN DATE: 07/25/22 [place] - LAB PAGE 2 RUN TIME: 1501 Specimen Inquiry RUN USER: INTERFACE -----SPEC #: [id number] PATIENT: MADISON MAN #[id number] (Continued) GROSS DESCRIPTION (Continued) determined by this [...] 1501 ----- END OF REPORT BASIC METABOLIC [id number] 13:53:00* Test Item Value Reference Range Interpretation [...] = CA) 8.1 mg/dL 8.0-10.5 N GLUCOSE [id number] 12:13:00* Test Item Value Reference Range Interpretation Comme nts GLUCOSE BEDSIDE (test code = GLUBED) 155 MG/DL 70-110 H Performed by cer tified molybdenum steamer operator at [facility] HGBA1C%2022-07-24 04:44:00* Test Item Value Reference Range Interpretation Comme nts HGBA1C% (test code = HGBA1C%) 5.5 %A1C 4.8-6.0 N BASIC METABOLIC [id number] 04:32:00* Test Item Value Reference Range Interpretation [...] code = CA) 8.3 mg/dL 8.0-10.5 N [id number] 04:32:00* Test Item Value Reference Range Interpretation Comme nts PHOSPHOROUS (test code = PHOS) 4.2 MG/DL 2.5-4.9 N [id number] 04:32:00* Test Item Value Reference Range Interpretation Comme nts MAGNESIUM (test code = MAG) 1.46 mg/dL 1.80-2.40 L CALCIUM [id number] 04:32:00* Test Item Value Reference Range Interpretation Comme nts CALCIUM IONIZED (test code = ARIANA) 1.11 MMOL/L 1.09-1.30 N CBC W/AUTO [id number] 04:22:00* Test Item Value Reference Range Interpretation [...] = MDIFF) NO - XR CHEST 1 [id number] 00:00:00 [facility] BOSCHICITA : 1940 Sex: F FAX: Riccardo Kendall [place]: St: [facility] FAX: Rusty Portillo [phone] Name: MADISON MAN [place] [facility] Hospital : 1940 Age/S: 81/F [address] [place] [address] Blvd Unit #: [id number] Loc: G.3304 [place] [address] Phys: Riccardo Kendall APRNN Acct: [id number] Dis Date: Status: ADM IN PHONE #: [phone] Exam Date: 07/24/2022619 FAX #: [phone] Reason: Post op EXAMS: CPT CODE: [id number] XRCHEST 1 V 69965 PROCEDURE INFORMATION: Exam: XR Chest Exam date and time: 07/24/2022 5:37 AM Age: 81years old Clinical indication: Other: Post op TECHNIQUE: [...] in the chest. Large retrocardiac hiatus hernia. Electronically Signed by Ju Whitaker on07/24/2022 at 0827 Reported and signed by: Jimena Whitaker M.D. CC: Riccardo Kendall; Rusty Angeles MD Technologist: RT Gael(Ambrocio) Trnscrd Date/Time/By: 07/24/2022 (826): By: [email or web address] Orig Print D/T: S: 07/24/2022 (826) PAGE 1 Signed ReportGLUCOSE [id number] 20:16:00* Test Item Value Reference Range Interpretation Comme nts GLUCOSE BEDSIDE (test code = GLUBED) 186 MG/DL 70-110 H Performed by cer tified molybdenum steamer operator at [facility] GLUCOSE [id number] 11:56:00* Test Item Value Reference Range Interpretation Comme nts GLUCOSE BEDSIDE (test code = GLUBED) 149 MG/DL 70-110 H Performed by cer tified molybdenum steamer operator at [facility] BASIC METABOLIC [id number] 11:50:00* Test Item Value Reference Range Interpretation [...] = CA) 8.7 mg/dL 8.0-10.5 N HGB [id number] 11:26:00* Test Item Value Reference Range Interpretation Comme nts HEMOGLOBIN (test code = HGB) 10.9 g/dL 11.0-15.0 L HEMATOCRIT (test code = HCT) 31.7 % 33.0-45.0 L GLUCOSE [id number] 09:08:00* Test Item Value Reference Range Interpretation Comme nts GLUCOSE BEDSIDE (test code = GLUBED) 145 MG/DL 70-110 H Performed by cer tified molybdenum steamer operator at [facility] [id number] 07:58:00* Test Item Value Reference Range Interpretation Comme nts ACT-ISTAT (test code = ACTI) 312 SEC 74-137 H Performed by cer tified molybdenum steamer operator at [facility] UA RFLX MICR CULT IF [id number] 14:59:00* Test Item Value Reference Range Interpretation [...] srcSpecimen Description: CLEAN CATCHCOVID 19 Asymptomatic IH [id number] 14:53:00* Test Item Value Reference Range Interpretation [...] HGBA1C%) 5.6 %A1C 4.8-6.0 N COMPREHENSIVE METABOLIC [id number] 14:38:00* Test Item Value Reference Range Interpretation [...] = ALKP) 69 IUnit/L 20-125 N PROTHROMBIN [id number] 14:34:00* Test Item Value Reference Range Interpretation [...] Infarction (to prevent recurrent infarct). THROMBOPLASTIN TIME [id number] 14:34:00* Test Item Value Reference Range Interpretation Comme nts THROMBOPLASTIN TIME PARTIAL (test code = PTT) 29.3 Seconds 25.0-39.5 N Therapeutic Rang e: 50.4 - 88.3 Seconds Effective 03/17/2019 CBC W/AUTO [id number] 14:26:00* Test Item Value Reference Range Interpretation [...] = MDIFF) NO - XR CHEST 2 [id number] 00:00:00 [facility] : 1940 Sex: F FAX: Rusty Portillo [phone] [place]: St: PRE Name: MADISON MAN [facility] : 1940 Age/S: 81/F [address] [place] [address] Unit #: [id number] Loc: [place] [address] Phys: Rusty Angeles MD Acct: [id number] Dis Date: Status: PRE SD PHONE #: [phone] Exam Date: 07/20/2022 1359 FAX #: [phone] Reason: PREOP EXAMS: CPT CODE: [id number] XR CHEST 2 V 93949 PROCEDUREINFORMATION: Exam: XR Chest Exam date and [...] Thoracic spurring. IMPRESSION: No acute findings. at 0824 Reported and signed by: Dean Arriaga M.D. CC: Rusty Angeles MDTechnologist: RT lAok(R) Trnscrd Date/Time/By: 07/20/2022 (1440) : By: [email or web address] Orig Print D/T: S: 07/20/2022 (4810) PAGE 1 Signed Report Notes Upcoming Encounters Date/Time Note Provider Source 2025-08-04 10:01:07 [facility] patient outcomes placed in providers box. Ginger Garcia 08/04/2025 10:01 AM [facility] 2025-07-20 10:19:50 Called patients daughter. Rescheduled for this 07/22/2025 Junaa Delgado RN [facility] 2025-07-20 10:08:32 Daughter is calling to see if the sutures are okay to be removed in August. If it is okay to wait that long . They were not able to attend last scheduled appt due to a family Please contact daughter . She wants to make sure , if not ,requesting to be seen sooner than August Gniger Seo [facility] 2025-07-20 10:01:11 Pt is requesting sooner appt date, is there any day where pt can be OB or are they safe to stay where they are scheduled? Rosa Elena Gutierrez [facility] 2025-07-20 08:37:00 Copied from [facility] #[id number]. Topic: Appointment - Reschedule Appointment >> Jul 20, 2025 8:35 AM Patient Steam Engineer wrote: Patient called to reschedule appointment. Miss 07/19 appointment due to in the family the funereal was on 07/19. Rescheduled for soonest available 08/03. The Patient is coming in for Post Op and suture removal. Could the Patient be seen sooner? Please contact Daughter on chart. Tara Galo [facility] 2025-07-08 16:50:53 Pt discharged with diagnosis of confusion and acute pain of L knee. Printed and verbal instructions reviewed with and given to pt. Pt verbalized understanding of teaching and recommended follow-up. Denies questions or concerns at this time. Pt assisted to POV in WC via ED staff at discharge. Appears in no apparent distress. Accompanied by family. Elizabeth Mccracken RN [facility] 2025-07-08 10:41:41 Pt arrived via WC with daughters for concern over incisional bleeding. Family states it has been tom wrapped but this morning the tom wrap slid down and they could see blood on the bandage. Old dried blood noted to dressing. Swelling and warmth noted. Family also concerned about patients speech being slurred and wondering if the pain meds are staying in her system too long. Last took [place] at 12am. 10 pain Rebekah Simmons RN [facility] 2025-07-05 13:17:02 Addended by: ALONDRA SAAB MD on: 07/05/2025 01:17 PM Modules accepted: Orders [facility] 2025-07-05 09:45:00 BRIEF OPERATIVE NOTE Date of Surgery: 07/05/2025 Surgeons and Role: * Alondra Saab MD - Primary * Kneedler, Bhupendra Hernández MD - Resident - Assisting Pre-Op Diagnosis: Primary osteoarthritis of left knee [M17.12] Pre-op testing [Z01.818] Post-Op Diagnosis Codes: * Primary osteoarthritis of left knee [M17.12] * Pre-op testing [Z01.818] Procedures: Procedure(s) (LRB): TOTAL KNEE ARTHROPLASTY (Left) CPT: 74266, Any Complications Encounters: 0 Estimated Blood Loss: min Specimens Removed: * No specimens in log * Implant Name Type Inv. Item Serial No. Pastry Cook Helper Lot No. LRB No. Used Action CEMENT BONE PALACOS R PRO 80 STERIL LF DISP #[id number] - SN/A Cement CEMENT BONE PALACOS R PRO 80 STERIL LF DISP #[id number] N/A Hunie Lumoid [id number] Left 1 Implanted BEARING TIBIAL 10 X 63/67 MM #[id number] - SN/A Joint Prosthesis BEARING TIBIAL 10 X 63/67 MM #[id number] N/A SHEILA BIOMET [id number] Left 1 Implanted VANGUARD KNEE SYSTEM 62.5MM LEFT CEMENTED CR FEMORAL INTERLOK N/A SHEILA BIOMET [id number] Left 1 Implanted PLATE TIBIAL CRUCIATE 67 MM #[id number] - SN/A Joint Prosthesis PLATE TIBIAL CRUCIATE 67 MM #[id number] N/A SHEILA BIOMET [id number] Left 1 Implanted COMPONENT PATELLA 32MM LUH 8MM BIOMET #[id number] - SN/A Joint Prosthesis COMPONENT PATELLA 32MM LUH 8MM BIOMET #[id number] N/A SHEILA BIOMET [id number] Left 1 Implanted Patient's Condition: good Findings: above Any other important information: none Please see dictated operative report for additional detail. [facility] 2025-07-01 14:04:56 Called and got fax number F: [phone] Faxed order Juana Delgado RN [facility] 2025-07-01 13:26:43 Copied from [facility] #[id number]. Topic: Clinical - Medical Advice >> Jul 01, 2025 1:24 PM Patient Steam Engineer wrote: Selena, daughter of : Madison Loborez Clinic Name: Kelli Mata [id number] female / 84 year old (1940) Please fax Rehab Orders to: [facility] [address] [place] [address] Thank You Aniyah Castano [facility] 2025-06-29 13:45:00 Summary: ts initiated 06/29/25 DOS 07/05/25 Images from the original note were not included. Venipuncture collection performed by clean technique on the right anticubitus. Total of 1 attempts were made. Slight pressure and a bandage/dressing were applied to the site(s). The patient experienced no complications. The following specimens were processed according to instructions and sent to [facility] laboratories per lab order on 06/29/2025 :per racheal in BB, patient need baseline ts. No other extra tubes needed. LT BLUE SST 1 RED LAV 2 PPT DK GREEN (LiHep) DK GREEN (SodH) [place] DK BLUE (K2) DK BLUE (S) ACD Blood Culture NIPT/NTD Patient has been identified by and name and was provided with cup, antiseptic towelette, and clean catch instructions. 2 urine specimen(s) sent. Unpreserved 2 Urine Culture Aptima tube Other urine [facility] 2025-06-29 11:02:04 Your orthopedic surgery procedure is at [facility] on 07/05/25. The address is [address] [place] [address], [address]. [facility] nursing staff will call you the workday prior to surgery/procedure between 12-3 pm with your arrival time. When you arrive, please come inside and sign in at the desk. -Please note: You may not travel home alone and that includes in a taxi or by bus. We must speak to your Responsible Adult (who will be picking you up) the morning of your procedure, before the start of your procedure. This person must be an adult over the age of 18 years of age. -Do not eat anything after midnight the night before your surgery/procedure or eight hours before, whichever is longer. -May have 8-16 oz of water/clear liquids each hour after midnight, as desired, until two hours prior to arrival to promote hydration. -No eye makeup or false eyelashes. No lotions, powders, or perfumes. No antiperspirant/deodorant for breast or shoulder surgeries. Nothing in hair except elastic band if needed. -You may take your medications with a sip of water as directed by physician. Preoperative Medication Instructions: Continue taking all medication except:TOM inhibitors, ARBs, diuretics, all oral diabetic medications -Anticoagulant Therapy: Defer to surgeons -Insulin: take 1/2 dose the night prior to surgery. Hold morning of surgery. -Phentermine:Alert [facility] Anesthesia -SGLT2 Inhibitors ("gliflozins"): hold three days prior to elective surgery -GLP1A Agonist: stop seven days prior to surgery MAC Cases: Continue ACEs and ARBs Anticoagulants: Other medication Note(s)/Instructions:Instru cted to hold losartan the evening before surgery. Advised to take isosorbide, metoprolol, and famotidine morning of surgery. -Pending screening, we may test for COVID. If a patient tests positive, their cases are cancelled and/or rescheduled. COVID SCREENING NOTE: Denies COVID symptoms, no testing required. -Additional requests, questions, concerns:Will come in today to complete pre-op labs and testing. Patient verbalized understanding of pre-op instructions and voiced no further questions at this time. CB number and availability provided. T [facility] 2025-06-28 15:43:30 Per provider she does not need to stop her blood pressure medication. Called daughter back and let her know what the provider said. She fully understood. Ginger Garcia 06/28/2025 3:44 PM T [facility] 2025-06-28 15:30:07 Called patient and she had questions on if she should stop taking her blood pressure medications (Losartan and Amlodipine) and thinks she is starting to get a Urinary tract infection. I informed her she would need to see her PCP or go to an urgent care to get that treated. I will ask provider regarding her BP medications. Ginger Garcia 06/28/2025 3:33 PM T [facility] [employer] 2025-06-28 14:48:28 Madison Man is a 84 year old female is calling in with questions about surgery that she is having on on Saturday. Please reach out to her at [phone] (home) Thank you! ShGary Diehl [facility] 2024-10-19 13:15:55 Zane Mari, [facility] - 10/19/2024 12:30 PM COMPREHENSIVE OPHTHALMOLOGIST CHIEF COMPLAINT: INGROWN NAIL, RIGHT HALLUX - resolved 07/27/2024 [facility] HISTORY OF PRESENT ILLNESS: Patient returns for [...] growth Neurological: (+) mixed sensation with 5.07 Ripon Micah monofilament examination to the most distal [...] legally responsible person has agreed to proceed. REHENSIVE OPHTHALMOLOGIST [facility] Due Date Last Done Comments Medicare Annual [...] patient's age to complete this topic [facility] HospitalUikvchd7576-40-44 13:15:55 Diagnosis Abnormal foot finding - Prim celina [facility] HospitalNxqzvbn7859-04-37 13:15:55 [place] [id number] 13:15:54* Zane Mari DPM - 10/19/2024 12:30 PM COMPREHENSIVE OPHTHALMOLOGIST CHIEF COMPLAINT: INGROWN NAIL, RIGHT HALLUX - resolved 07/27/2024 [facility] HISTORY OF PRESENT ILLNESS: Patient returns for [...] growth Neurological: (+) mixed sensation with 5.07 Ripon Micah monofilament examination to the most distal [...] [facility]2024-11-18 13:15:54Upcoming Encounters Health Maintenance Due Date Last [...] patient's age to complete this topic [facility] HospitalSymraes4483-12-46 13:15:54 Diagnosis Abnormal foot finding - Prim celina [facility] HospitalSmerjts3963-94-61 13:15:54 [facility] HospitalQibywfv6260-76-84 10:56:00 [facility]) Hospitalist Discharge Summary REPORT#:[id number] REPORT STATUS: Signed REPORT INITIALIZATION DATE:08/02/24 TIME: 105 PATIENT: MADISON MAN UNIT #: [id number] ROOM/BED: [address] : 39 AGE: 83 SEX: F [...] Extremities: moves all, no cyanosis, no edema Neuro/PAVING INSPECTOR: alert, oriented X 3, normal speech, no [...] the resident. at 1130 at 0750 RPT #:[id number] END OF REPORTZFKPC7546-40-53 11:26:00 [facility] ([facility]) Hospitalist Progress Note REPORT#:[id number] REPORT STATUS: Signed REPORT INITIALIZATION DATE:08/01/24 TIME: 1125 PATIENT: MADISON MAN UNIT #: [id number] [facility] AGE: 83 SEX: F ATTEND: [...] Extremities: moves all, no cyanosis, no edema Neuro/PAVING INSPECTOR: alert, oriented X 3, normal speech, no [...] - 50.0 %) 14.6 L 3.1 L [place] % (Auto) (0.0 - 13.0 %) 5.2 [...] Morphology (NORMAL) NO NO Laboratory Tests 07/31 1523 Toxicology Ketones (NEGATIVE mg/dl) NEGATIVE Laboratory Tests 07/31 1523 Urines Urine Color (YELLOW) YELLOW A Urine Appearance (CLEAR) TURBID Urine pH (4.6 - 8.0) 5.5 Ur Specific [place] 1.017 Urine Protein (NEGATIVE mg/dl) 70 Urine [...] wall. 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 Please correlate with surgical history to ensure this is not a mass. No acute findings of the chest. Impression By: Damian Sawant MD CAT SCAN - CT HEAD/BRAIN W/O CONT 07/31 2115 Report Impression - Status: SIGNED Entered: 07/31/20242139 IMPRESSION: No evidence of acute intracranial abnormality. Chronic microvascular ischemic changes and atrophy. Impression By: Kassidy RUIZ M.D. CAT SCAN - CT ABD PELVIS W/O CONT 07/31 2115 Report Impression - Status: SIGNED Entered: 07/31/20242144 IMPRESSION: Significant scarring in both kidneys. Nonobstructing right renal stone. No hydronephrosis. Tiny pocket of air along the dome of the urinary bladder may be iatrogenic. Infection may also be considered. Diverticulosis without evidence of diverticulitis. Impression By: Kassidy RUIZ M.D. Diagnosis, Assessment Plan Hospital course [...] PM to 6 AM please call the [facility] hospitalist on-call. Ronald Ochoa 08/02/24 3315: Attestations Physician Attestation Agree w/findings plan: I have personally reviewed charting, assessment, and plan. At least 50% of the encounter including physical exam was performed by me. I agree with what is documented by the resident. at 1807 at 1105 [facility] #:[id number] END OF [id number] 17:50:00 [facility] ([facility]) Hospitalist History Physical REPORT#:[id number] REPORT STATUS: Signed REPORT INITIALIZATION DATE:07/31/24 TIME: 1749 PATIENT: MADISON MAN UNIT #: [id number] ROOM/BED: [address] : 39 AGE: 83 SEX: F [...] Extremities: moves all, no cyanosis, no edema Neuro/PAVING INSPECTOR: abnormal speech, disoriented, alert, no motor deficits [...] (Auto) (16.0 - 50.0 %) 3.1 L [place] % (Auto) (0.0 - 13.0 %) 3.2 [...] RBC Morphology (NORMAL) NO Laboratory Tests 07/31 152 Toxicology Ketones (NEGATIVE mg/dl) NEGATIVE Laboratory Tests 07/31 1523 Urines Urine Color (YELLOW) YELLOW Urine Appearance (CLEAR) TURBID Urine pH (4.6 - 8.0) 5.5 Ur Specific [place] 1.017 Urine Protein (NEGATIVE mg/dl) 70 Urine [...] wall. 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 Please correlate with surgical history to ensure [...] PM to 6 AM please call the I hospitalist on-call. Ronald Ochoa 08/01/24 1115: Attestations Physician Attestation Agree w/findings plan: I have personally reviewed charting, assessment, and plan. At least 50% of the encounter including physical exam was performed by me. I agree with what is documented by the resident. at 1839 at 1116 RPT #:[id number] END OF [id number] 16:31:00 [facility] ([facility]) EMERGENCY PROVIDER REPORT REPORT#:[id number] REPORT STATUS: Signed DATE:07/31/24 TIME: 1631 PATIENT: MADISON MAN UNIT #: [id number] ROOM/BED: [place] [address] : 39 AGE: 83 SEX: F PCP [...] pH (4.6 - 8.0) 5.5 Ur Specific [place] 1.017 Urine Protein (NEGATIVE mg/dl) 70 Urine [...] (Auto) (16.0 - 50.0 %) 3.1 L [place] % (Auto) (0.0 - 13.0 %) 3.2 [...] Date/Time Procedure - Status Source Growth 07/31 160 Blood Culture - ORD BLOOD 07/31 1604 Blood Culture - ORD BLOOD 07/31 1554 Urine Culture - RECD URINE Recent Impressions: RADIOLOGY - XR CHEST 1 V 07/31 1542 Report Impression - Status: SIGNED Entered: 07/31/2024 1612 Impression: Large frontal density over the left midlung zone/breast, with postsurgical changes of the axilla or chest wall. 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 Please correlate with surgical history to ensure this is not a mass. No acute findings of the chest. Impression By: Damian - Jose Sawant MD ECG #1 Interpretation ECG Documented in MUSE Yes Date 07/31/24 Time 1443 Interpreted by and reviewed by me, Independently interpreted, ED physician NL ECG Interpretation Normal rate, Normal sinus rhythm, No acute ischemic changes, No STEMI Rate 87 ECG Q-T-ST - IN Non-specific ST changes Re-Evaluation MDM Free Text [...] Course Medication(s) Ordered Medication(s) Ordered: Anti-Infective Agents Sig/Mak Start time Last Medication Dose Route Stop Time Status Admin Ceftriaxone Sodium 1,000 MG X1ED STA 07/31 1603 DC 07/31 Sodium Chloride 10 ML IV 07/31 1605 1612 Central Nervous System Agents Sig/Mak Start time Last Medication Dose Route Stop Time Status Admin Aspirin 324 MG X1ED STA 07/31 1444 DC 07/31 PO 07/31 1445 1503 Electrolytic, Caloric, And Ariana Sig/Mak Start time Last Medication Dose Route Stop [...] Hospitalize Hosp Physician Name Ronald Ochoa MD [facility] Physician Hospitalist Request Time 1633 Request Date 07/31/24 )( Accepts Hospitalization Yes )( Reason for Hospitalization encephalopathy, uti )( Accepted Time 1633 )( Accepted Date 07/31/24 Call Information will see patient, agrees with eval, agrees with plan at 1703 RPT #:[id number] END OF [id number] 12:46:29* Zane Mari, BRIANNA - 07/27/2024 12:20 PM CDT CHIEF COMPLAINT: INGROWN NAIL, RIGHT HALLUX - resolved 07/27/2024 [facility] HISTORY OF PRESENT ILLNESS: Patient returns for [...] growth Neurological: (+) mixed sensation with 5.07 Ripon Micah monofilament examination to the most distal [...] legally responsible person has agreed to proceed. H [facility] HospitalHedvjqv0616-41-81 12:46:29Upcoming Encounters Health Maintenance Due Date Last [...] on patient's age to complete this topic [place] 443664-08-26 12:46:29 Diagnosis Abnormal foot finding - Prim celina [facility] HospitalAskoutv8238-22-16 12:46:29 [place] 443664-08-26 12:46:29* Zane Mari, BRIANNA - 07/27/2024 12:20 PM CDT CHIEF COMPLAINT: INGROWN NAIL, RIGHT HALLUX - resolved 07/27/2024 [facility] HISTORY OF PRESENT ILLNESS: Patient returns for [...] growth Neurological: (+) mixed sensation with 5.07 Ripon Micah monofilament examination to the most distal [...] legally responsible person has agreed to proceed. [place] 871574-08-26 12:46:29Upcoming Encounters Health Maintenance Due Date Last [...] on patient's age to complete this topic [place] 443664-08-26 12:46:29 Diagnosis Abnormal foot finding - Prim celina [facility] HospitalVsidmyw5311-29-10 12:46:29 [place] 443664-08-19 13:05:10 [place] [address]-08-19 13:05:10* Zane Mari, [facility] - 07/20/2024 11:50 AM CDT CHIEF COMPLAINT: INGROWN NAIL, RIGHT HALLUX [facility] HISTORY OF PRESENT ILLNESS: Patient returns for [...] growth Neurological: (+) mixed sensation with 5.07 Ripon Micah monofilament examination to the most distal [...] legally responsible person has agreed to proceed. [facility]2024-08-19 13:05:10Upcoming Encounters Health Maintenance Due Date Last [...] patient's age to complete this topic [facility] HospitalBxdwwgc5119-98-11 13:05:10 Diagnosis Abnormal foot finding - Prim celina [facility] HospitalVyjuhrn9861-94-81 13:05:10 [facility] HospitalLbvrdcn8492-16-10 13:05:10* Zane Mari, SOL - 07/20/2024 11:50 AM CDT CHIEF COMPLAINT: INGROWN NAIL, RIGHT HALLUX [facility] HISTORY OF PRESENT ILLNESS: Patient returns for [...] growth Neurological: (+) mixed sensation with 5.07 Ripon Micah monofilament examination to the most distal [...] person has agreed to proceed. [facility] HospitalMesccjm3288-08-06 13:05:10Upcoming Encounters Health Maintenance Due Date Last [...] patient's age to complete this topic [facility] HospitalAiwdonn5547-64-45 13:05:10 Diagnosis Abnormal foot finding - Prim celina [facility] HospitalZibwmtx6392-15-28 11:37:00 [facility] ([facility]) Brief Op Note REPORT#:[id number] REPORT STATUS: Signed DATE:06/03/23 TIME:1137 PATIENT: MADISON MAN UNIT #: [id number] ROOM/BED: [place] [address] : 39 AGE: 82 SEX: F ATTEND: [...] Urethral bulking and cystoscopy Primary Surgeon: jordan Apartment Groundskeeper(s): jaylin matos Anesthesia: general anesthesia Findings: 0/0/-1/5/mod/5-6/-1/-2/na, cysto with small ? mass, cysto 3mon postop, likely inflammed area; Bulkamid 1.2ml Complications: none Estimated blood loss in ml's: 100 Specimens removed/altered: none Fluids: 1000 Urine output: 400 Approach: vag at 1140 RPT #: [id number] END OF REPORT [id number] 11:10:149774-3566 [facility] [address] [place] [id number] PATIENT NAME: MADISON MAN ADMIT DATE: 06/03/23 ACCOUNT NO: [id number] ROOM NO: [facility] AGE: 82 REPORT TYPE: OPERATIVE REPORT [...] Bulkamid and cystoscopy. SURGEON: Vero Ortega MD RADIO ANNOUNCER: Jaylin Matos. ANESTHESIA: General. SPECIMENS: No specimens. COMPLICATIONS: No complications. DRAINS: Bolden catheter, 14-Faroese, no vaginal packing. FINDINGS: POP-Q 0, 0, [...] low urethral pressure. Her bladder PATIENT NAME: MADISON MAN emptying on the test was unremarkable [...] she was cleared by Dr. Eagle, her platform engineer. She had a carotid artery stent in [...] anterior and posterior mix was done with oyaamm-nb-zdoym 2-0 Vicryl sutures. After doing a running continuous suture of the vault and onto the right lateral wall. The left lateral wall was also closed with the help of continuous running 2-0 and then interrupted 2-0 bykwpq-yd-hbdzr sutures in 3 layers to close the anterior and posterior vaginal mix and to make them symmetric. Then, 5 sutures were placed, one nzuulz-bg-kfjpf and 3 horizontal mattress sutures in order to bring the anterior and posterior vaginal epithelial edges together. The flaps were PATIENT NAME: MADISON MAN raised to advance the epithelial edges to take the tension off. Once the closure was done, the [place] retractor needles were removed to inspect the [...] The bladder was drained, opening up to 16-Faroese Bolden. The Bolden was removed. Urethral bulking [...] The bulking agent was removed. Then, a 14-Faroese Bolden was inserted into the bladder and [...] Date Transcribed: 06/03/2023 14:26:42 EULA/LEONIDES/TALIA/DANIELLE Receipt ID: [id number] Authenticated by Vero Ortega MD On 07/01/2023 05:32:45 PM PATIENT NAME: BRITTANY MANA at 0532 PATIENT NAME: TAYLOR MANICITA 13:12:00 [id number] [address] PATIENT NAME: MADISON MAN ADMIT DATE: 06/03/23 ACCOUNT NO: [id number] ROOM NO: [facility] AGE: 82 REPORT TYPE: eELECTROCARDIOGRAM SEX: F ADMITTING PHYSICIAN: Vero Ortega MD ATTENDING PHYSICIAN: Vero Ortega MD Order: [id number] Test Reason : PRE OP Test Date/Time [...] in Anterior leads Confirmed by LIZZY LOUISE ([id number]) on 06/10/2023 6:00:42 AM Referred By: Vero Ortega Confirmed by:LIZZY LOUISE at 0600 PATIENT NAME: MADISON MAN 10:36:[address] [facility] discharge summary report#:[id number] report status: signed date:07/24/22 time: 1036 patient: madison man unit #: [id number] room/bed: [place] [address] : 39 age: 81 sex: f attend: rusty angeles md adm dt: 07/23/22 author: julian gaam tractor technician * all edits or amendments must be [...] ang[place] in 1 to 2 weeks consultants: critical/business project analyst, hospitalist, vascular surgery med rec pcp pcp: [...] impression by: [email or web address] - jimena whitaker m.d. treatments procedures lab: chemistry last [...] radiology - xr chest 1 v 07/24 06 report impression - status: signed entered: 07/24/2022826 impression: no acute abnormality in the chest. large retrocardiac hiatus hernia. impression by: mai whitaker m.d. discharge instructions pcp pcp: pcp: vikram orr v, md )( discharge to: home/self care discharge instructions additional discharge routines: attending follow-up, solutions consultant follow-up, wound/ dressing care )( diet: cardiac )( wound/dressing care: clean wound daily, do not submerge incision, keep wound clean and dry follow-up appointments attending physician: attending physician: rusty angeles md phone: [phone] attending physician follow up timeframe: in 1-2 weeks consulting provider 1: provider 1: bethany eagle md specialty: cardiologyinterventional phone: [phone] consult follow up timeframe: in 1-2 weeks quality: discharge advanced care plan 65 or older discussed with: patient, surrogate decis. maker electronically signed by julian gama np on 07/24/22 at 1433 electronically signed by rusty angeles md on 07/25/22 at 8065 rpt #:[id number] end of [id number] 10:13:00 [facility] ([facility]) critical care progress note report#:[id number] report status: signed date:07/24/22 time: 1013 patient: madison man unit #: [id number] room/bed: [place] [address] : 39 age: 81 sex: f attend: [...] sodium chloride (sodium chloride 0.9%) 1,000 ml .[id number] iv magnesium sulfate (magnesium sulfate 4gm/swfi 100ml) [...] 1110: [embedded image not available] microbiology: 07/23 0618 nasal: mrsa dna surveillance screen - comp radiology data recent impressions: radiology - xr chest 1 v 07/24 0620 report impression - status: signed entered: 07/24/2022 08 impression: no acute abnormality in the chest. [...] imaging and discussing plans of care with business project analyst, interdisciplinary team orders: procedure date/time status basic metabolic panel 07/24 1400 active ot: pocc - ot staff only 07/24 08 active eval ot high complex [id number] 07/24 843 active adl 15 min 07/24 unk complete consultants: critical/business project analyst, hospitalist, vascular surgery code status: full code plan discussed with: patient, family, collaborating md, consultants, nurse, interdisc care team, pharmacy/pharmacist critical care time: minutes: 30 electronically signed by riccardo kendall on 07/24/22 at 1029 [facility] #:[id number] end of [id number] 13:16:00 [facility] ([facility]) critical care consult note report#:[id number] report status: signed date:07/23/22 time: 1316 patient: madison man unit #: [id number] room/bed: [place] [address] : 39 age: 81 sex: f attend: rusty angeles md adm dt: 07/23/22 author: riccardo kendall * all edits or amendments must be made on the electronic/computer document * see addendum history of present illness hpi requesting clinician: julian gama tractor technician reason for consult: icu mgt chief complaint: [...] strength: 0.25 mg tab 1441 pregabalin (lyrica) 08/19/22 strength: 25 mg cap 1442 trazodone (desyrel) [...] tab 1444 current hospital medications: anti-infective agents sig/mak start time last medication dose [...] (glycopyrrolate) .route neostigmine 0 .stk-med one 07/23 0831 dc methylsulfate .route (prostigmin) glycopyrrolate 0 .stk-med [...] sodium) .route thrombin 0 .stk-med one 07/23 06 dc (recothrom) topical cardiovascular drugs sig/mak start time last medication dose [...] lidocaine hcl 2 ml preop oncall 07/20 141 dc (lidocaine hcl/pf) local 08/19 235 central nervous system agents sig/mak start time last medication dose [...] 1415 dc 07/23 (tylenol extra po 08/19 235 0601 strength) gabapentin 200 mg preop oncall 07/20 1415 dc 07/23 (neurontin) po 08/19 2359 0600 electrolytic, caloric, and ariana sig/mak start time last medication dose route [...] 0.9%) eye, ear, nose and throat (een sig/mka start time last medication dose route stop [...] 09 ckd (montelukast sodium) po 08/23 0859 skin [...] prn prn iv fentanyl citrate (sublimaze) 0 .[facility] one .route (dc) fentanyl citrate (sublimaze) 100 [...] diagnosis, assessment plan diagnosis, assessment plan consultants: critical/business project analyst plan discussed with: patient, family, collaborating md, [...] imaging and discussing plans of care with business project analyst, interdisciplinary team electronically signed by riccardo kendall on 07/23/22 at 1702 addendum 1: 07/24/22 1139 by riccardo kendall problems: urinary tract infection. electronically signed by riccardo kendall on 07/24/22 at 1140 rpt #:[id number] end of [id number] 10:57:00 [facility] ([facility]) history physical - adult report#:[id number] report status: signed date:07/23/22 time: 1056 patient: madison man unit #: [id number] room/bed: [place] [address] : 39 age: 81 sex: f attend: rusty angeles md adm dt: 07/23/22 author: julian gama tractor technician * all edits or amendments must be [...] tab 1444 current hospital medications: anti-infective agents sig/mak start time last medication dose route stop time status admin cefazolin sodium 0 .stk-med one 07/23 0717 dc (kefzol or ancef) .route cefazolin sodium 1 gm preop oncall 07/23 0500 dc (kefzol or ancef) iv 07/23 235 sodium chloride 10 ml (sodium chloride) autonomic drugs sig/mak start time last medication dose route stop time status admin glycopyrrolate 0 .stk-med one 07/23 08 dc (glycopyrrolate) .route neostigmine 0 .stk-med one [...] (recothrom) topical cardiovascular drugs sig/mak start time last medication dose [...] (xylocaine) .route lidocaine hcl 0 .stk-med one 08/22 0624 dc (xylocaine iv) iv metoprolol tartrate 6.25 mg once 07/23 0600 dc 07/23 (lopressor) po 07/23 08 0600 verapamil hcl 16.6 mg .q24h one [...] central nervous system agents sig/mak start time last medication dose route stop time status admin trazodone hcl 50 mg bedtime 07/23 2100 ac (desyrel) po 08/22 2059 pregabalin 25 mg tid 07/23 1500 ac [...] prn 07/23 0900 ac (sublimaze) iv 07/23 190 fentanyl citrate [...] 1415 dc 07/23 (tylenol extra po 08/19 235 0601 strength) gabapentin 200 mg preop oncall 07/20 1415 dc 07/23 (neurontin) po 08/19 235 0600 electrolytic, caloric, and ariana sig/mak start time last medication dose route stop time status admin lactated ringer's 1,000 ml .q24h 07/23 0900 ac (lactated ringers) iv 07/23 1900 sodium chloride 500 ml .stk-med one 07/23 0645 dc (sodium chloride iv 0.9%) lactated ringer's 1,000 ml preop oncall 07/20 1415 dc (lactated ringers) iv 08/19 235 sodium chloride 500 ml preop oncall 07/20 1415 dc (sodium chloride iv 08/19 2359 0.9%) sodium chloride 500 ml preop oncall 07/20 1415 dc (sodium chloride iv 08/19 2359 0.9%) sodium chloride 1,000 ml preop oncall 07/20 1415 dc (sodium chloride iv 08/19 235 0.9%) sodium chloride 5 ml asdir prn 07/20 1415 dc (sodium chloride) iv 08/19 1414 sodium chloride 10 ml asdir prn 07/20 1415 dc (sodium chloride) iv 08/19 141 sodium chloride 250 ml asdir prn 07/20 1415 dc (sodium chloride iv 08/19 141 0.9%) eye, ear, nose and throat (een [...] 0900 ckd (montelukast sodium) po 08/23 0859 allergies: [...] exam extremities: moves all, no edema-all extremities neuro/scaffold builder: alert, oriented x 3, normal speech, no [...] admit patient (cpoe) 07/23 1048 active consultants: critical/business project analyst free text dxa p notes free text [...] rusty angeles md on 07/24/22 at 0929 rpt #:[id number] end of [id number] 08:40:00 [facility] ([facility]) dt operative note report#:[id number] report status: signed date:07/23/22 time: 08 patient: madison man unit #: [id number] room/bed: : 39 age: 81 sex: f attend: rusty angeles md adm dt: 07/23/22 author: rusty angeles md * all edits or amendments must be made on the electronic/computer document * operative report operative note note: preoperative diagnosis: asymptomatic severe right internal carotid artery stenosis postoperative diagnosis: asymptomatic severe right internal carotid artery stenosis operation: right carotid endarterectomy surgeon: rusty angeles md medical office assistant instructor: destini forbes anesthesiologist: sonia sosa md anesthesia: [...] rusty angeles md on 07/23/22 at 0843 [facility] #:[id number] end of [id number] 13:55:[id number] [address] patient name: madison man admit date: account no: [id number] room no: age: 81 report type: eelectrocardiogram report sex: f admitting physician: attending physician:rusty angeles md order: [id number] test reason : pre op test date/time [...] md on 07/20/22 at 1431 patient name: madison man
--- NOTE | 2025-08-28 18:00 | RAD REPORT ---
EXAMINATION: CT HEAD WITHOUT CONTRAST CT CERVICAL SPINE WITHOUT CONTRAST CLINICAL INDICATION: Head and neck injury status post fall. Head and neck pain TECHNIQUE: Axial CT images from the skull base to the vertex without intravenous contrast. Axial CT i mages through the cervical spine were obtained without intravenous contrast. Sagittal and coronal reformatted images were created from the data set. Coronal and sagittal reformatted images were creat ed from the data set. One or more of the following dose reduction techniques were used: Automated exposure control, adjustment of the mA and/or kV according to patient size, and/or iterative reconstr uction. Unless otherwise specified, incidental findings do not require dedicated imaging follow-up. [id number]. Comparison: 2020 FINDINGS: Occipital scalp hematoma Small subdural hematoma along the anterior aspect of the left tentorium. The thickness measures 2.5 m m.. The subdural hematoma extends along the left temporal convexity. Thickness 2.5 mm Small subdural hematoma adjacent to the left sphenoid and medial temporal lobe. Thickness 5 mm Small subdural hematoma along the left temporal convexity. Thickness 3 mm Ventricles are normal in caliber. No significant hypodensity within the brain No fluid within the sinuses/mastoids No fracture or dislocation is seen involving the cervical spine. Slight anterior subluxation C4 on C5. Mild posterior subluxation C5 on C6. These are chronic. Spondyl osis cervical spine IMPRESSION: Small left tentorium subdural hematoma which extends along the left temporal convexity Small left subdural hematoma between the sphenoid bone and medial left temporal lobe. A cervical fracture is not seen. Dr. George notified at 5:49 PM August 28, 2025
--- NOTE | 2025-08-28 18:06 | ER ---
Nurse's Notes [facility] Name: Madison Cerrato Age: 84 yrs Sex: Female : 1940 Arrival Date: 08/28/2025 Time: 16:43 Bed 15 Private MD: Diagnosis: Traumatic subdural hemorrhage-x2;Fall on same level, unspecified Presentation: 08/28 17:06 Chief complaint: EMS states: fell backwards resulting in abrasion on back of head. kj2 Though has a diagnosis of Dementia, patient is reported to be Altered in her mental status. Care prior to arrival: None. Mechanism of Injury: Fall from standing position. Trauma event details: Injury occurred: August 28, 2025. 17:06 Acuity: JOHN 3 kj2 17:06 Method Of Arrival: EMS: [facility] kj2 17:10 Coronavirus screen: Client denies travel out of the [place] in the last 14 days. Ebola kj2 Screen: No symptoms or risks identified at this time. Initial Sepsis Screen: Does the patient meet any 2 criteria? No. Patient's initial sepsis screen is negative. Does the patient have a suspected source of infection? No. Patient's initial sepsis screen is negative. Risk Assessment: Do you want to hurt yourself or someone else? Patient reports no desire to harm self or others. Onset of symptoms was August 28, 2025. Historical: - Allergies: 17:11 Codeine; kj2 - PMHx: 17:11 Alzheimer's disease; Congestive heart failure; CVA; Dementia; diabetes mellitus; kj2 Hypercholesterolemia; Hypertensive disorder; kidney disease; - PSHx: 17:11 Cholecystectomy; knee; kj2 - Immunization history: Last tetanus immunization: unknown. - Infectious Disease History:: Denies. - Social history:: Smoking status: unknown. Screenin:10 [facility] ED Fall Risk Assessment (Adult) History of falling in the last 3 months, kj2 including since admission Yes- single mechanical fall (1 pt) Confusion or Disorientation Yes (5 pts) Intoxicated or Sedated No (0 pts) Impaired Gait Yes (1 pt) Mobility Assist Device Used Yes (1 pt) Altered Elimination No (0 pt) Score/Fall Risk Level 0 - 2 = Low Risk Maintained a safe environment, Hourly rounding (assess needs \T\ fall precautionary measures) done. Abuse screen: Denies threats or abuse. Denies injuries from another. Nutritional screening: No deficits noted. Tuberculosis screening: No symptoms or risk factors identified. Primary Survey: 17:12 NO uncontrolled hemorrhage observed. Breathing/Chest: Spontaneous respiratory effort, kj2 equal unlabored respirations, breath sounds clear bilaterally, regular pattern, symmetrical chest rise and fall. Respiratory effort: unlabored. Circulation: No external hemorrhage present. Regular and strong central pulse, skin warm/dry/normal color. Disability Pupils are equal, round, reactive to light and accommodation. Client is alert. Exposure/Environment: All clothing and personal items were removed. Forensic evidence collection is not deemed to be indicated at this time. Items placed in patient belonging bag. There is no evidence of uncontrolled external bleeding. 18:25 Reassessment Alertness and Airway: Awake and alert. The airway is patent. Airway Patent kj2 Breathing: Spontaneous respiratory effort, equal unlabored respirations, breath sounds clear bilaterally, regular pattern with symmetrical chest rise and fall. Assessment: 17:09 General: Appears in no apparent distress. Behavior is calm. Pain: Complains of pain in kj2 back of head Pain currently is 5 out of 10 on a pain scale. Neuro: Level of Consciousness is awake, alert, Oriented to person, place. Cardiovascular: Patient's skin is warm and dry. Respiratory: Airway is patent Respiratory effort is even, unlabored. GI: No signs and/or symptoms were reported involving the gastrointestinal system. : No signs and/or symptoms were reported regarding the genitourinary system. Derm: Bruising that is located on back of head. 18:10 Reassessment: Patient appears in no apparent distress at this time. Patient and/or kj2 family updated on plan of care and expected duration. Pain level reassessed. Patient is alert, oriented x 3, equal unlabored respirations, skin warm/dry/pink. 19:19 Reassessment: Patient appears in no apparent distress at this time. Patient and/or kj2 family updated on plan of care and expected duration. Pain level reassessed. Patient is alert, oriented x 3, equal unlabored respirations, skin warm/dry/pink. Vital Signs: 17:13 BP 202 / 83; Pulse 79; Resp 20; Pulse Ox 98% on R/A; kj2 17:14 Weight 79.38 kg; Height 4 ft. 10 in. ; kj2 18:15 BP 207 / 76; Pulse 84; Resp 20; Pulse Ox 100% ; kj2 18:37 BP 205 / 79; Pulse 81; Resp 18; Pulse Ox 100% ; kj2 19:15 BP 210 / 81; Pulse 86; Resp 18; Pulse Ox 100% ; kj2 19:50 BP 211 / 97; Pulse 87; Resp 16 S; Pulse Ox 99% on R/A; ha1 17:14 Body Mass Index 36.57 (79.38 kg, 147.32 cm) kj2 Terrell Coma Score: 17:15 Eye Response: spontaneous(4). Motor Response: obeys commands(6). Verbal Response: kj2 oriented(5). Total: 15. 17:18 Eye Response: spontaneous(4). Motor Response: obeys commands(6). Verbal Response: kb oriented(5). Total: 15. Trauma Score (Adult): 17:30 Eye Response: spontaneous(1); Verbal Response: oriented(1); Motor Response: obeys kj2 commands(2); Systolic BP: > 89 mm Hg(4); Respiratory Rate: 10 to 29 per min(4); Ramsey Score: 15; Trauma Score: 12 ED Course: 17:05 Patient arrived in ED. eb 17:05 Madeline Escalante, NAN is Primary Nurse. kj2 17:05 Lo [facility]-C [facility]. kb 17:05 Troy George MD is Attending Physician. kb 17:09 Triage completed. kj2 17:15 Patient has correct armband on for positive identification. Bed in low position. Call kj2 light in reach. Side rails up X 1. Adult w/ patient. Provided Education on: call light. 17:22 CT Head C Spine In Process Unspecified. EDMS 17:30 Thermoregulation: none needed. kj2 18:20 initiated a transfer with Nubia from the [facility]. eb 18:29 Missed attempt(s): 22 gauge in right forearm. Bleeding controlled, band aid applied, ts3 catheter tip intact. 18:30 Initial lab(s) drawn, by golf course laborer, sent to lab. Missed attempt(s): 24 gauge in right ts3 hand. Bleeding controlled, band aid applied, catheter tip intact. 18:37 administrative approval given by Ami Jayant Rn/ patient has been accepted to eb [facility] ER/ Baron Nguyen has accepted the patient in transfer without conference with ed provider. 18:38 Patient maintains SpO2 saturation greater than 95% on room air. kj2 19:52 Inserted saline lock: 18 gauge in left EJ, using aseptic technique. Blood collected. ha1 Flushed with 10 mL NS IV INSERTED BY DR. VEGA. 20:04 No provider procedures requiring assistance completed. kj2 20:04 Patient transferred, IV remains in place. kj2 Administered Medications: 19:19 Drug: hydrALAZINE IVP 10 mg IVP once Route: IVP; Site: right antecubital; kj2 20:05 Follow up: Response: No adverse reaction kj2 19:57 Drug: niCARdipine IV 5 mg/hr IV at per protocol See Administration Instructions; ha1 (Standard concentration 25 mg / 250 mL NS); Recommended max rate 15 mg/hr; Titrate 2.5 mg/hr as often as every 15 minutes to achieve goal (see titration policy); Goal parameter SBP less than 160 mmHg Route: IV; Rate: per protocol; Site: left jugular; 20:02 Follow up: Response: No adverse reaction; IV Status: Infusion continued upon transfer ha1 Medication: 18:38 VIS not applicable for this client. kj2 Intake: 19:43 PO: 0ml; Total: 0ml. kj2 Outcome: 18:05 ER care complete, transfer ordered by MD. beckford 20:04 Transferred by ground EMS kj2 20:04 Condition: stable 20:04 Instructed on the need for transfer, 20:05 Patient's length of stay was not longer than 2 hours. kj2 20:06 Patient left the ED. kj2 Signatures: Dispatcher [employer] EDMS Lo Moyer, RAVENC CHECK SERVICES CLERK-Rosemary Kaufman Stella Hair RN RN ha1 Madeline Escalante RN RN kj2 Hilda Obrien 3
--- NOTE | 2025-08-28 18:06 | EDPHYS ---
Physician Documentation [facility] Name: Madison Cerrato Age: 84 yrs Sex: Female : 1940 Arrival Date: 08/28/2025 Time: 16:43 Bed 15 Private MD: ED Physician Troy George HPI: 08/28 17:17 This 84 yrs old Female presents to ER via EMS with complaints of Fall Injury. kb 17:17 Patient is a 84-year-old female who was walking through her front door and was slipped kb causing her to fall backwards and hit her head on the concrete. Family denies LOC but reports that patient has had confusion since the fall. Fall occurred just prior to arrival. EMS reports patient was not oriented to self, year or president and route. Patient can tell me name, age and date of at this time.. Historical: - Allergies: 17:11 Codeine; kj2 - PMHx: 17:11 Alzheimer's disease; Congestive heart failure; CVA; Dementia; diabetes mellitus; kj2 Hypercholesterolemia; Hypertensive disorder; kidney disease; - PSHx: 17:11 Cholecystectomy; knee; kj2 - Immunization history: Last tetanus immunization: unknown. - Infectious Disease History:: Denies. - Social history:: Smoking status: unknown. ROS: 17:16 Constitutional: As per HPI kb Exam: 17:16 Constitutional: This is a well developed, well nourished patient who is awake, alert, kb and in no acute distress. Eyes: Pupils equal round and reactive to light, extra-ocular motions intact. Lids and lashes normal. Conjunctiva and sclera are non-icteric and not injected. Cornea within normal limits. Periorbital areas with no swelling, redness, or edema. ENT: Moist Mucous membranes Cardiovascular: Regular rate Respiratory: Respirations even and unlabored. No increased work of breathing. Talking in full sentences Abdomen/GI: Soft, non-tender. No distention Back: No spinal tenderness. No costovertebral tenderness. Full range of motion. Skin: Warm, dry with normal turgor. Normal color. MS/ Extremity: Pulses equal, no cyanosis. Neurovascular intact. Full, normal range of motion. 17:16 Head/face: Noted is no obvious of injury or deformity except hematoma, that is moderate, of the right occipital area, 17:18 Neuro: Orientation: to person, Motor: moves all fours, Sensation: no obvious gross kb deficits, Vital Signs: 17:13 BP 202 / 83; Pulse 79; Resp 20; Pulse Ox 98% on R/A; kj2 17:14 Weight 79.38 kg; Height 4 ft. 10 in. ; kj2 18:15 BP 207 / 76; Pulse 84; Resp 20; Pulse Ox 100% ; kj2 18:37 BP 205 / 79; Pulse 81; Resp 18; Pulse Ox 100% ; kj2 19:15 BP 210 / 81; Pulse 86; Resp 18; Pulse Ox 100% ; kj2 19:50 BP 211 / 97; Pulse 87; Resp 16 S; Pulse Ox 99% on R/A; ha1 17:14 Body Mass Index 36.57 (79.38 kg, 147.32 cm) kj2 Terrell Coma Score: 17:15 Eye Response: spontaneous(4). Motor Response: obeys commands(6). Verbal Response: kj2 oriented(5). Total: 15. 17:18 Eye Response: spontaneous(4). Motor Response: obeys commands(6). Verbal Response: kb oriented(5). Total: 15. Trauma Score (Adult): 17:30 Eye Response: spontaneous(1); Verbal Response: oriented(1); Motor Response: obeys kj2 commands(2); Systolic BP: > 89 mm Hg(4); Respiratory Rate: 10 to 29 per min(4); Terrell Score: 15; Trauma Score: 12 MDM: 17:05 Medical Screening Exam initiated 18:05 Differential diagnosis: Subdural hematoma, subarachnoid hematoma, intracranial kb hemorrhage, fracture. Data reviewed: vital signs, nurses notes. Consideration of Admission/Observation Escalation of care including admission/observation considered. Patient will be transferred to [place] for trauma and neurosurgery. Historians other than the Patient: EMS: [facility]. Counseling: I had a detailed discussion with the patient and/or guardian regarding the historical points, exam findings, and any diagnostic results supporting the discharge/admit diagnosis, radiology results, the need to transfer to another facility, for higher level of care, [facility] does not immediately have the required specialist. 18:42 Management of patient was discussed with the following: Pt accepted for transfer to [facility] by Dr Denise Paul without conference. 08/28 17:52 Order name: CBC with Diff; Complete Time: 18:29 kb 08/28 17:52 Order name: CMP; Complete Time: 18:45 kb 08/28 17:52 Order name: PT-INR; Complete Time: 18:44 kb 08/28 17:52 Order name: Ptt, Activated; Complete Time: 18:44 kb 08/28 17:06 Order name: CT Head C Spine; Complete Time: 18:03 kb 08/28 17:52 Order name: IV Start; Complete Time: 18:33 kb 08/28 17:56 Order name: Vital Signs; Complete Time: 18:33 kb Administered Medications: 19:19 Drug: hydrALAZINE IVP 10 mg IVP once Route: IVP; Site: right antecubital; kj2 20:05 Follow up: Response: No adverse reaction kj2 19:57 Drug: niCARdipine IV 5 mg/hr IV at per protocol See Administration Instructions; ha1 (Standard concentration 25 mg / 250 mL NS); Recommended max rate 15 mg/hr; Titrate 2.5 mg/hr as often as every 15 minutes to achieve goal (see titration policy); Goal parameter SBP less than 160 mmHg Route: IV; Rate: per protocol; Site: left jugular; 20:02 Follow up: Response: No adverse reaction; IV Status: Infusion continued upon transfer ha1 Disposition Summary: 08/28/25 18:05 Transfer Ordered Notes: Transfer Location: [facility] kb Reason: Higher level of care kb Condition: Stable kb Problem: new kb Symptoms: are unchanged kb Accepting Physician: (08/28/25 20:06) kj2 Diagnosis - Traumatic subdural hemorrhage - x2 kb - Fall on same level, unspecified kb Forms: - Medication Reconciliation Form kb - SBAR form kb Critical care time excluding procedures: 18:06 Critical care time: Bedside Care: 10 minutes, Consultation: 11 minutes, Family kb Intervention: 10 minutes. Total time: 31 minutes Addendum: 09/02/2025 07:02 Co-signature as Attending Physician, Troy George MD I reviewed the patient's care r n provided by the Advanced Practice Provider and agree with the diagnosis and treatment plan. Signatures: Dispatcher [employer] Lo Stoll, KELLY-C PROJECT FINANCE ANALYST-Ckb Troy George MD MD rn Ayala, Heidy RN RN ha1 Xavi Beckman MD MD sp4 Madeline Escalante RN RN kj2 Corrections: (The following items were deleted from the chart) 08/28 17:19 17:16 Constitutional: This is a well developed, well nourished patient who is awake, kb alert, and in no acute distress. Eyes: Pupils equal round and reactive to light, extra-ocular motions intact. Lids and lashes normal. Conjunctiva and sclera are non-icteric and not injected. Cornea within normal limits. Periorbital areas with no swelling, redness, or edema. ENT: Moist Mucous membranes Cardiovascular: Regular rate Respiratory: Respirations even and unlabored. No increased work of breathing. Talking in full sentences Abdomen/GI: Soft, non-tender. No distention Back: No spinal tenderness. No costovertebral tenderness. Full range of motion. Skin: Warm, dry with normal turgor. Normal color. MS/ Extremity: Pulses equal, no cyanosis. Neurovascular intact. Full, normal range of motion. Neuro: Awake and alert, GCS 15, oriented to person, place, time, and situation. kb 17:52 17:52 CBC+H.LAB.BRZ ordered. EDMS EDMS 17:52 17:52 COMPREHENSIVE METABOLIC PANEL+C.LAB.BRZ ordered. EDMS EDMS 17:52 17:52 PROTIME (+INR)+COAG.LAB.BRZ ordered. EDMS EDMS 17:52 17:52 PTT, ACTIVATED+COAG.LAB.BRZ ordered. EDMS EDMS 20:06 18:05 Dr beckford kj2
[2025-08-28 18:27] LABS: Absolute Lymphocytes (CBC) 0.7 K/uL (0.7-4.9); Hematocrit 30.5 % (36.0-45.0); Hemoglobin 10.1 g/dL (12.0-15.0); MCH 30.1 pg (27.0-35.0); MCHC 33.1 g/dL (32.0-36.0); MCV 90.9 fL (80-100); MPV 9.3 fL (7.6-11.3); Nucleated RBC Absolute Count 0.0 (0-0); Nucleated Red Blood Cells % 0.1 % (0-0); RBC Red Blood Cell Count 3.36 M/uL (3.86-4.86); White Blood Count 6.30 thou/uL (4.3-10.9)
[2025-08-28 18:36] LABS: PT Prothrombin Time 12.6 SECONDS (10-13.0); PTT, Activated Partial Thromb 30.3 SECONDS (27.2-37.4); Protime INR 1.12
[2025-08-28 18:44] LABS: ALT/SGPT 16.0 U/L (13-56); AST/SGOT 12.0 U/L (15-37); Albumin 3.2 g/dL (3.4-5.0); Albumin/Globulin Ratio 1.0 (1.1-1.8); Alkaline Phosphatase 107.0 U/L (45-117); Anion Gap 10.3 mEq/L (5.0-15.0); BUN Blood Urea Nitrogen 31.0 mg/dL (7-18); Globulin 3.2 g/dL (2.3-3.5); Glucose Level 134.0 mg/dL (74-106); Potassium 4.3 mEq/L (3.5-5.1)
[2025-08-28] MEDS ORDERED: HYDRALAZINE HCL 20 MG/ML VIAL ONE (19:14)
[2025-08-28] MEDS ORDERED: Nicardipine/NS 25 MG/250 ML KIT IV ONE (19:53)
[2025-08-28 20:37] VITALS: BP 211/97; O2SAT 99
== END 2025-08-28 20:06 | disposition short-term general hospital (02) ==
LOC: ER 16:43
DX: S06.5XAA Traumatic subdural hemorrhage with loss of consciousness status unknown, initial encounter (principal); W01.10XA Fall on same level from slipping, tripping and stumbling with subsequent striking against unspecified object, initial encounter; Y93.9 Activity, unspecified; Y92.018 Other place in single-family (private) house as the place of occurrence of the external cause; G30.9 Alzheimer's disease, unspecified; F02.80 Dementia in other diseases classified elsewhere, unspecified severity, without behavioral disturbance, psychotic disturbance, mood disturbance, and anxiety; I50.9 Heart failure, unspecified; I10 Essential (primary) hypertension; E78.00 Pure hypercholesterolemia, unspecified; E11.9 Type 2 diabetes mellitus without complications; N18.9 Chronic kidney disease, unspecified; Z86.73 Personal history of transient ischemic attack (TIA), and cerebral infarction without residual deficits
CPT/HCPCS: 85025; 36415; 85610; 85730; 80053; 70450; 72125; 99285; J2404; J0360

== ENCOUNTER 2025-09-09 10:00 | Emergency (ER) | payer OTHER ==
--- OUTSIDE RECORDS SUMMARY | 2025-09-09 10:19 | XMS REPORT | Continuity of Care Document ---
Author Name Unknown Address [address] [facility] [address] [place] [address] [facility] Address [address] [facility] [address] [place] [address] Care Team Providers Care Office Machine Servicer Apprentice Name Role Phone TANIA DONALD Primary Care Physician Unavailab LOUANN Tejada Attending Clinician Unavailable LOUANN GO Attending Clinician Unavailable Shiloh THEODORE, Enrrique Luong Attending Clinician Denise Paul MD, Baron Attending Clinician [phone] Jeremy THEODORE, Derian Bedolla Attending Cl inician Bessie Layton MD Attending Clinician [phone] Braulio Casillas MD Attending Clinician [phone] System, Provider Not In Attending Clinician Unav Louann Fields PA-C Attending Clinician [phone] Alondra Saab MD Attending Clinician [phone] Doctor Unassigned, [place] Attending Clinician U CHINO Viveros Attending Clinician UnaCHINO Hancock Attending Clinician Unav ailable ALONDRA SAAB Attending Clinician Unavailabl e ALONDRA SAAB Attending Clinician Unavailabl steffany Pob, [facility] Attending Clinician UnavailZane Purvis DPM Attending Clinician + [phone] ZANE MARI Attending Clinician Unavail able Ronald Ochoa Attending Clinician Unavail able [email or web address] Attending Clinician Unavaila [place] Attending Clinician Unavaila Rusty Lau Attending Clinician TRACY Spencer Attending Clinician Unavailable PHILIP MOYER Attending Clinician Unavailable SHAGGY CROWLEY Attending Clinician Unavail able SHAGGY CROWLEY Attending Clinician Unavail able Shaggy Crowley MD Attending Clinician [phone] Amada ARROYO, Maulik Attending Clinician [phone] Doctor Unassigned, [place] Attending Clinician U BISI Cordero Attending Clinician Unavailable MAULIK SHERMAN Attending Clinician Unavailab Bisi Pascual MD Attending Clinician [phone] Tracy Harris MD Attending Clinician [phone] JONAH OTERO Attending Clinician Unavailable Jonah Otero MD Attending Clinician [phone] ANA WHITEHEAD Attending Clinician Unavailable Ana Bautista Attending Clinician [phone] Pob, [facility] Attending Clinician UnavailPAM Ramirez Attending Clinician Unavailable Pam Kraus Attending Clinician [phone] Do Arboleda MD Attending Clinician [phone] Berna Brenner Attending Clinician [phone] BERNA DONG Attending Clinician Unavailable Cresencio Bush MD Attending Clinician [phone] CRESENCIO BUSH Attending Clinician Unavailable Braulio Casillas MD Admitting Clinician [phone] CHINO GEORGE Admitting Clinician Unav ALONDRA Aguila Admitting Clinician Ronald Ceballos Admitting Clinician Unavail able [email or web address] Admitting Clinician Vero Loza Admitting Clinician Rusty Mcghee Admitting Clinician JONAH Rodarte Admitting Clinician Unavailable Payers Payer Name Policy Type Policy Number Effective Date Expirati on Date Source [employer] MEDICARE ADVANTAGE PPO [id number] 2022 00:00:00 [employer] MEDICARE OON Medicare [id number] 2025 00:00:00 [employer] MEDICARE [id number] 2025 00:00:00 [employer] (MEDICARE REPLACEMENT/ADVANT AGE - PPO) [id number] Problems Condition Name Condition Details Condition Category Status Onset Date Resolution Date Last Treatment Date Treating Clinician Comments Source 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 Active 9-29 00:00: 00 [facility] Epic Subdural hematoma Subdural hematoma Disease Active 928 00:00: 00 [facility] Valderrama Epic Primary osteoarthr itis of left knee Primary osteoarthr itis of left knee Disease Active -17 00:00: 00 [facility] Pre-op testing Pre-op testing Disease Active -17 00:00: 00 [facility] Senile dementia Senile Dementia Problem Active 7- 00:00: 00 [facility] Urinary symptoms Urinary Symptoms Problem Active 7- 00:00: 00 [facility] Urgent desire to urinate Urgent Desire to Urinate Problem Active 6-03 00:00: 00 [facility] Cyst of kidney Cyst of Kidney Problem Active 5-30 00:00: 00 [facility] Pain in pelvis Pain in Pelvis Problem Active 5- 00:00: 00 [facility] Cystocele Cystocele Problem Active 7- 00:00: 00 [facility] Female stress incontinen ce Female Stress Incontinen ce Problem Active 7- 00:00: 00 [facility] Atrophic vaginitis Atrophic Vaginitis Problem Active -11 00:00: 00 [facility] Dementia Dementia Problem Active 0 7-11 00:00: 00 [facility] 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 Problem Active 7-11 00:00: 00 [facility] Genuine stress incontinen ce Genuine Stress Incontinen ce Problem Active 4-11 00:00: 00 [facility] Lateral cystocele Lateral Cystocele Problem Active 1-18 00:00: 00 [facility] Personal history of primary malignant neoplasm of breast Personal History of Primary Malignant Neoplasm of Breast Problem Active 1-18 00:00: 00 [facility] History of urinary tract infection History of Urinary Tract Infection Problem Active 1-18 00:00: 00 [facility] Overactive urinary bladder Overactive Urinary Bladder Problem Active 1-18 00:00: 00 [facility] Urge incontinen ce of urine Urge Incontinen ce of Urine Problem Active 2021-12 2-16 00:00: 00 [facility] Mixed urinary incontinen ce Mixed Urinary Incontinen ce Problem Active 2021-12 2-16 00:00: 00 [facility] Forgetfuln ess Forgetfuln ess Disease Active 2020-12 2-28 00:00: 00 [facility] Hypertensi ve urgency Hypertensi ve urgency Disease Active 2020-12 1-19 00:00: 00 [facility] Contusion of left great toe with damage to nail, initial encounter Contusion of left great toe with damage to nail, initial encounter Disease Active 8-20 00:00: 00 [facility] Arthritis, multiple joint involvemen t Arthritis, multiple joint involvemen t Disease Active 8-20 00:00: 00 [facility] Non compliance with medical treatment Non compliance with medical treatment Disease Active 8-20 00:00: 00 [facility] Diabetic eye exam Diabetic eye exam Disease Active 8-18 00:00: 00 [facility] Senile osteoporos is Senile osteoporos is Disease Active 818 00:00: 00 [facility] Need for 23-polyval ent pneumococc al polysaccha ride vaccine Need for 23-polyval ent pneumococc al polysaccha ride vaccine Disease Active 8-18 00:00: 00 [facility] Depression , major, recurrent, moderate Depression , major, recurrent, moderate Disease Active 813 00:00: 00 [facility] 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, without long-term current use of 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, without long-term current use of insulin Disease Active 8 00:00: 00 [facility] Recurrent UTI Recurrent UTI Disease Active 8 00:00: 00 [facility] Cystitis Cystitis Disease Active 8 00:00: 00 [facility] Dysuria Dysuria Disease Active 8 00:00: 00 [facility] Lower abdominal pain Lower abdominal pain Disease Active 8 00:00: 00 [facility] Alzheimer' s disease of other onset without behavioral disturbanc e Alzheimer' s disease of other onset without behavioral disturbanc e Disease Active 8 00:00: 00 [facility] Chronic idiopathic thrombocyt openia Chronic idiopathic thrombocyt openia Disease Active 8 00:00: 00 [facility] Pyelonephr itis Pyelonephr itis Disease Active 8 00:00: 00 [facility] Gastroesop hageal reflux disease without esophagiti s Gastroesop hageal reflux disease without esophagiti s Disease Active 8 00:00: 00 [facility] Primary insomnia Primary insomnia Disease Active 8 00:00: 00 [facility] Hospital discharge follow-up Hospital discharge follow-up Disease Active 8 00:00: 00 [facility] Depression , major, recurrent, moderate Depression , major, recurrent, moderate Disease Active 8 00:00: 00 [facility] Anxiety, generalize d Anxiety, generalize d Disease Active 8 00:00: 00 [facility] Chronic anemia Chronic anemia Disease Active 07-14 00:00: 00 [facility] Mixed hearing loss, bilateral Mixed hearing loss, bilateral Disease Active 07-14 00:00: 00 [facility] Dyslipidem ia Dyslipidem ia Disease Active 07-14 00:00: 00 [facility] Essential hypertensi on Essential hypertensi on Disease Active 07-14 00:00: 00 [facility] Chronic midline low back pain without sciatica Chronic midline low back pain without sciatica Disease Active 07-14 00:00: 00 [facility] Urothelial lesion Urothelial lesion Disease Active 07-14 00:00: 00 [facility] Diverticul osis Diverticul osis Disease Active 07-14 00:00: 00 [facility] Renal scarring Renal scarring Disease Active 07-14 00:00: 00 [facility] Diabetic polyneurop athy associated with type 2 diabetes mellitus Diabetic polyneurop athy associated with type 2 diabetes mellitus Disease Active 07-14 00:00: 00 [facility] Atheroscle rosis of aorta Atheroscle rosis of aorta Disease Active 07-14 00:00: 00 [facility] 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, without long-term current use of 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, without long-term current use of insulin Disease Active 07-14 00:00: 00 [facility] RLS (restless legs syndrome) RLS (restless legs syndrome) Disease Active 07-14 00:00: 00 [facility] Abnormal liver enzymes Abnormal liver enzymes Disease Active 07-14 00:00: 00 [facility] CKD stage G3a/A2, GFR 45-59 and albumin creatinine ratio 30-299 mg/g CKD stage G3a/A2, GFR 45-59 and albumin creatinine ratio 30-299 mg/g Disease Active 07-14 00:00: 00 [facility] Allergies, Adverse Reactions, Alerts Allergy Name Allergy Type Status Severity Reaction(s) Onset Date Inactive Date Treating Clinician Comments Source Ceftriax one Allergy Active Swelling 08-31 00:00: 00 Swelling to IV site Albaro Arredondo Codeine Allergy Active Headache 08-28 00:00: 00 PER PATIENT FAMILY NOT REALLY AN ALLERGY - JUST GETS A HEADACHE Albaro Arredondo sulfamet hoxazole DA Active SV DIARRHEA 0 05-23 00:00: 00 [facility] trim[facility] prim DA Active SV DIARRHEA 0 05-23 00:00: 00 [facility] SULFAMET HOXAZOLE DRUG INGREDI Active Diarrhea 0 05-23 00:00: 00 [facility] TRIMETHO PRIM DRUG INGREDI Active Diarrhea 0 05-23 00:00: 00 [facility] Sulfamet hoxazole Drug Allergy Active Diarrhea 0 05-23 00:00: 00 [facility] Trimetho prim Drug Allergy Active Diarrhea 0 6 00:00: 00 [facility] No Known Allergie s DA Active U 0 8-19 00:00: 00 [facility] Codeine Allergy to substanc e Active Dizziness 0 8-04 00:00: 00 [facility] CODEINE DRUG INGREDI Active Dizziness 0 8-04 00:00: 00 [facility] Codeine Propensi ty to adverse reaction s Active Dizziness 0 8-04 00:00: 00 [facility] ALLERGIE S NOT ON FILE SYSTEMIC Active MHEOUT ALLERGIE S NOT ON FILE SYSTEMIC Active MHEOUT ALLERGIE S NOT ON FILE SYSTEMIC Active MHEOUT ALLERGIE S NOT ON FILE SYSTEMIC Active MHEOUT ALLERGIE S NOT ON FILE SYSTEMIC Active MHEOUT Social History Social Habit Start Date Stop Date Quantity Comments Source Gender identity Francisco [facility]redondo [facility] ASSERTION Not [facility] History of Social function 2025-08-30 00:00:00 2025-08-30 00:00:00 Dorene Arredondo Alcoholic beverage intake 2025-08-19 00:00:00 2025-08-19 00:00:00 Lifetime non-drinker (finding) [facility] Sex 2024-07-16 15:54:35 2024-07-16 15:54:35 Female (finding) [facility] Exposure to SARS-CoV-2 (event) 2021-11-04 00:00:00 2021-12-04 07:44:00 Not sure [facility] Alcohol intake 2021-07-25 00:00:00 2021-07-25 00:00:00 Lifetime non-drinker (finding) [facility] Tobacco use and exposure 2021-07-21 00:00:00 2021-07-21 00:00:00 Smokeless tobacco non-user [facility] Sex assigned at 1940 00:00:00 1940 00:00:00 [facility] Smoking Status Start Date Stop Date Source Tobacco smoking consumption unknown [facility] Never smoked tobacco [facility] Medications Ordered Medication Name Filled Medication Name Start Date Stop Date Current Medication? Ordering Clinician Indication Dosage Frequency Signature (SIG) Comments Components Source aspirin chewable tablet 81 mg aspirin chewable tablet 81 mg 2024-12 09:00: 00 09-03 09:46 :11 Yes [id number] 81mg QD 81 mg, Oral, Daily, First dose on Sat09/08/25 at 0900 Albaro Arredondo aspirin 81 MG chewable tablet aspirin 81 MG chewable tablet 2024-12 00:00: 00 10-08 23:59 :00 No 81mg QD Chew 1 tablet 1 time each day. Do not start before September 08, 2025. Albaro Valderrama [facility] NIFEdipine XL (Adalat CC) 60 MG 24 hr tablet NIFEdipine XL (Adalat CC) 60 MG 24 hr tablet 2024-12 00:00: 00 10-04 23:59 :00 No 60mg QD Take 1 tablet by mouth 1 time each day. Do not crush, chew, or split. Albaro Valderrama [facility] pregabalin (Lyrica) 75 MG capsule pregabalin (Lyrica) 75 MG capsule 2024-12 0- 12:32: 07 09-03 00:00 :00 No 75mg Take 75 mg by mouth at bedtime. Albaro Arredondo anastrozole (Arimidex) 1 MG chemo tablet anastrozole (Arimidex) 1 MG chemo tablet 2024-12 12:32: 04 Yes 1mg QD Take 1 mg by mouth 1 time each day. Swallow whole with a drink of water. Albaro Arredondo risperiDONE (RisperDAL) 1 MG tablet risperiDONE (RisperDAL) 1 MG tablet 2024-12 12:32: 04 Yes 1mg QD Take 1 mg by mouth 1 time each day. Albaro Arredondo hydrALAZINE (Apresoline ) 100 MG tablet hydrALAZINE (Apresoline ) 100 MG tablet 2024-12 00:00: 00 10-03 23:59 :00 No 100mg Q.[id number] 3D Take 1 tablet by mouth in the morning and 1 tablet at noon and 1 tablet before bedtime. Albaro Arredondo atorvastati n (Lipitor) 20 MG tablet atorvastati n (Lipitor) 20 MG tablet 2024-12 00:00: 00 10-03 23:59 :00 No 40mg Take 2 tablets by mouth at bedtime. Albaro Arredondo acetaminoph en (Tylenol) 500 MG tablet acetaminoph en (Tylenol) 500 MG tablet 2024-12 00:00: 00 09-13 23:59 :00 No 1000mg Q6H Take 2 tablets by mouth every 6 hours if needed for headaches or moderate pain (4-6) for up to 10 days. Albaro Arredondo gabapentin (Neurontin) 100 MG capsule gabapentin (Neurontin) 100 MG capsule 2024-12 0 00:00: 00 09-10 23:59 :00 No 100mg Q.[id number] 3D Take 1 capsule by mouth in the morning and 1 capsule at noon and 1 capsule in the evening. Albaro Arredondo levETIRAcet am (Keppra) 500 MG tablet levETIRAcet am (Keppra) 500 MG tablet 2024-12 0- 00:00: 09-05 23:59 :00 No 500mg Q12H Take 1 tablet by mouth in the morning and 1 tablet in the evening. Albaro Valderrama Epic sulfamethox azole-trime thoprim (Bactrim DS) 800-160 MG per tablet sulfamethox azole-trime thoprim (Bactrim DS) 800-160 MG per tablet 2024-12 0 00:00: 00 09-03 00:00 :00 No 1{tbl} Q.5D Take 1 tablet by mouth in the morning and 1 tablet before bedtime. Do all this for 1 dose. Albaro Valderrama Epic potassium chloride CR (Klor-Con M20) ER tablet 40 mEq potassium chloride CR (Klor-Con M20) ER tablet 40 mEq 2024-12 0 02:30: 00 09-02 02:47 :00 No 40meq 40 mEq, Oral, Once, On Sat09/02/25 at 0230, For 1 dose, For patients able to take medication s orally or via feeding tube >/= 14 [place]gr[place], may dissolve each 20 mEq tablet in 4 oz of water. Allow about 2 minutes for the tablets to disintegra te. Stir before giving to prepare slurry and administer . Please exclude patient's with feeding tube less than 14 [place]gr[place] (Dobhoff, J-tube, etc) and pediatric and patients Do not crush or chew. Albaro Arredondo hydrALAZINE (Apresoline ) tablet 100 mg hydrALAZINE (Apresoline ) tablet 100 mg 2024-12 22:00: 00 Yes 100mg Q.[id number] 3D 100 mg, Oral, Every 8 hours scheduled, First dose (after last modificati on) on Sat09/01/25 at 2200 Albaro Valderrama Epic electrolyte solution pH 7.4 (Plasma-lyt e/Normosol/ Isolyte) infusion 1,000 mL electrolyte solution pH 7.4 (Plasma-lyt e/Normosol/ Isolyte) infusion 1,000 mL 2024-12 19:45: 00 09-01 20:02 :00 No 1000mL 1,000 mL, Intravenou s, Once, On Sat09/01/25 at 1945, For 1 dose Albaro Arredondo Boost Glucose Control liquid 237 mL Boost Glucose Control liquid 237 mL 2024-12 18:15: 00 Yes 1{conta iner} 237 mL (1 Container) , Oral, 3 times daily with meals, First dose on Sat09/01/25 at 1815 Albaro Arredondo hydrALAZINE (Apresoline ) tablet 25 mg hydrALAZINE (Apresoline ) tablet 25 mg 2024-12 17:05: 00 Yes 25mg 25 mg, Oral, Once, On Sat09/01/25 at 1715, For 1 dose Albaro Arredondo NIFEdipine XL (Procardia XL) 60 mg NIFEdipine XL (Procardia XL) 60 mg 2024-12 14:45: 00 Yes 60mg QD 60 mg, Oral, Daily, First dose on Sat09/01/25 at 1445, Do not crush, chew, or split. Albaro Arredondo atorvastati n (Lipitor) tablet 40 mg atorvastati n (Lipitor) tablet 40 mg 2024-12 09:00: 00 Yes 40mg QD 40 mg, Oral, Daily, First dose (after last modificati on) on Sat09/01/25 at 0900 Albaro Arredondo hydrALAZINE (Apresoline ) tablet 75 mg hydrALAZINE (Apresoline ) tablet 75 mg 2024-12 08:00: 00 09-01 14:34 :40 No 75mg Q.[id number] 3D 75 mg, Oral, Every 8 hours scheduled, First dose (after last modificati on) on Sat09/01/25 at 0800 Albaro Arredondo electrolyte solution pH 7.4 (Plasma-lyt e/Normosol/ Isolyte) infusion 1,000 mL electrolyte solution pH 7.4 (Plasma-lyt e/Normosol/ Isolyte) infusion 1,000 mL 2024-12 07:30: 00 09-01 08:25 :00 No 1000mL 1,000 mL, Intravenou s, Once, On Sat09/01/25 at 0730, For 1 dose Albaro Arredondo potassium chloride CR (Klor-Con M20) ER tablet 40 mEq potassium chloride CR (Klor-Con M20) ER tablet 40 mEq 08-31 14:15: 00 08-31 14:22 :00 No 40meq 40 mEq, Oral, Once, On Sat08/31/25 at 1415, For 1 dose, For patients able to take medication s orally or via feeding tube >/= 14 [place]enegr[place], may dissolve each 20 mEq tablet in 4 oz of water. Allow about 2 minutes for the tablets to disintegra te. Stir before giving to prepare slurry and administer . Please exclude patient's with feeding tube less than 14 [place]gr[place] (Dobhoff, J-tube, etc) and pediatric and patients Do not crush or chew. Albaro Arredondo gabapentin (Neurontin) capsule 100 mg gabapentin (Neurontin) capsule 100 mg 08-31 09:00: 00 Yes 100mg Q.[id number] 3D 100 mg, Oral, 3 times daily, First dose on Sat08/31/25 at 0900 Albaro Arredondo losartan (Cozaar) tablet 100 mg losartan (Cozaar) tablet 100 mg 08-31 09:00: 00 Yes 100mg QD 100 mg, Oral, Daily, First dose (after last modificati on) on Sat08/31/25 at 0900, On hold since Sat09/01/2025 at 0729 until manually unheld Albaro Arredondo hydrALAZINE (Apresoline ) tablet 50 mg hydrALAZINE (Apresoline ) tablet 50 mg 08-31 09:00: 00 09-01 07:30 :18 No 50mg Q.[id number] 3D 50 mg, Oral, 3 times daily, First dose (after last modificati on) on Sat08/31/25 at 0900 Albaro Arredondo levETIRAcet am (Keppra) tablet 500 mg levETIRAcet am (Keppra) tablet 500 mg 08-31 08:00: 00 09-05 07:59 :00 No 500mg Q12H 500 mg, Oral, Every 12 hours, First dose on Sat08/31/25 at 0800, For 10 doses Albaro Arredondo pantoprazol e (ProtoNix) EC tablet 20 mg pantoprazol e (ProtoNix) EC tablet 20 mg 08-31 06:00: 00 Yes 20mg 20 mg, Oral, Daily before breakfast, First dose on Sat08/31/25 at 0600, Do not crush, chew, or split. Albaro Arredondo montelukast (Singulair) tablet 10 mg montelukast (Singulair) tablet 10 mg 08-30 21:00: 00 Yes 10mg 10 mg, Oral, Nightly, First dose on Sat08/30/25 at 2100 Albaro Arredondo heparin injection 5,000 Units heparin injection 5,000 Units 08-30 16:00: 00 Yes 5000U Q.[id number] 3D 5,000 Units, Subcutaneo us, Every 8 hours scheduled, First dose on Sat08/30/25 at 1600 Albaro Arredondo losartan (Cozaar) tablet 50 mg losartan (Cozaar) tablet 50 mg 08-30 15:45: 00 08-31 08:29 :14 No 50mg QD 50 mg, Oral, Daily, First dose (after last modificati on) on Sat08/30/25 at 1545 Albaro Arredondo sulfamethox azole-trime thoprim (Bactrim DS) 800-160 MG per tablet 160 mg sulfamethox azole-trime thoprim (Bactrim DS) 800-160 MG per tablet 160 mg 08-30 15:00: 00 09-04 08:59 :00 No 160mg Q.5D 160 mg, Oral, Every 12 hours scheduled, First dose (after last modificati on) on Sat08/30/25 at 1500, For 9 doses, Suspected Indication (Select all that apply): Urinary Tract Infection Albaro Arredondo sertraline (Zoloft) tablet 25 mg sertraline (Zoloft) tablet 25 mg 08-30 14:00: 00 Yes 25mg QD 25 mg, Oral, Daily, First dose on Sat08/30/25 at 1400, For tube: crush into fine powder, mix with 10 mL of water, give immediatel y, & flush with equal amount of water to prevent clogging. Albaro Arredondo risperiDONE (RisperDAL) tablet 1 mg risperiDONE (RisperDAL) tablet 1 mg 08-30 13:47: 55 Yes [id number] 1mg QD Sujett elif Arredondo ipratropium (Atrovent) 0.06 % nasal spray 2 spray ipratropium (Atrovent) 0.06 % nasal spray 2 spray 08-30 13:47: 09 Yes 2{spray } Q.5D Administer 2 sprays into each nostril 2 times a day as needed for rhinitis. Albaro Arredondo diclofenac sodium 1 % gel 2 g diclofenac sodium 1 % gel 2 g 08-30 13:47: 08 Yes 2g Q.25D Apply 2 g topically 4 times a day as needed for pain. Albaro Arredondo traZODone (Desyrel) tablet 50 mg traZODone (Desyrel) tablet 50 mg 08-30 01:00: 00 Yes 50mg 50 mg, Oral, Nightly, First dose on Sat08/30/25 at 0100 Albaro Arredondo diphenhydrA MINE (BENADryl) injection 25 mg diphenhydrA MINE (BENADryl) injection 25 mg 08-29 18:05: 00 08-29 19:00 :00 No 25mg 25 mg, Intravenou s, Once, On Sat08/29/25 at 1805, For 1 dose Albaro Arredondo cefTRIAXone (Rocephin) 1 g in sodium chloride 0.9 % 100 mL IVPB-MB+ cefTRIAXone (Rocephin) 1 g in sodium chloride 0.9 % 100 mL IVPB-MB+ 08-29 13:00: 00 08-30 08:34 :43 No 1g 1 g, Intravenou s, at 200 mL/hr, Administer over 30 Minutes, Every 24 hours, First dose on Sat08/29/25 at 1300, For 7 days, Mini-Bag Plus bag. Break seal and mix before use, as follows: For liquid drug vials, skip to step 2. 1. Hold bag with vial down. Squeeze solution into vial until half-full. Shake to suspend drug in solution. 2. Hold bag with vial upside down. Squeeze bag to force air into vial, then release to drain suspended drug from vial into bag. 3. Repeat above until vial is empty of drug and solution is thoroughly mixed. Ensure drug is completely dissolved. Do not remove drug vial. 4. Remove port protector, attach admin set per its instructio ns, then hang container from IV pole and prime set per directions . Do not use in series connection s. 5. Ensure the vial is empty of drug and in solution, then administer medication as ordered. Use within specified BUD., Suspected Indication (Select all that apply): Urinary Tract Infection Albaro Valderrama Epic isosorbide mononitrate ER (Imdur) 24 hr tablet 60 mg isosorbide mononitrate ER (Imdur) 24 hr tablet 60 mg 08-29 09:00: 00 Yes 60mg QD 60 mg, Oral, Daily, First dose on 08/29/25 at 0900, Do not crush, chew, or split. Albaro Valderrama Epic metoprolol succinate XL (Toprol-XL) 24 hr tablet 25 mg metoprolol succinate XL (Toprol-XL) 24 hr tablet 25 mg 2024-0 08-29 09:00: 00 Yes 25mg QD 25 mg, Oral, Daily, First dose on 08/29/25 at 0900, Do not crush or chew. Albaro Valderrama Epic sennosides (Senokot) tablet 8.6 mg sennosides (Senokot) tablet 8.6 mg 08-29 09:00: 00 Yes 1{tbl} Q.5D 8.6 mg (1 tablet), Oral, 2 times daily, First dose on 08/29/25 at 0900 Albaro Valderrama Epic docusate sodium (Colace) capsule 50 mg docusate sodium (Colace) capsule 50 mg 08-29 09:00: 00 Yes 50mg Q.5D 50 mg, Oral, 2 times daily, First dose on 08/29/25 at 0900 Albaro Valderrama Epic famotidine (Pepcid) tablet 20 mg famotidine (Pepcid) tablet 20 mg 08-29 09:00: 00 09-02 05:34 :14 No 20mg QD 20 mg, Oral, Daily, First dose on Sat08/29/25 at 0900 Albaro Arredondo atorvastati n (Lipitor) tablet 20 mg atorvastati n (Lipitor) tablet 20 mg 08-29 09:00: 00 09-01 07:11 :18 No 20mg QD 20 mg, Oral, Daily, First dose (after last modificati on) on Sat08/29/25 at 0900 Albaro Valderrama Epic hydrALAZINE (Apresoline ) tablet 25 mg hydrALAZINE (Apresoline ) tablet 25 mg 08-29 09:00: 00 08-31 08:29 :14 No 25mg [id number] 3D 25 mg, Oral, 3 times daily, First dose on Sat08/29/25 at 0900 Albaro Valderrama Epic niCARdipine (Cardene) 40 mg/200 mL NS (0.2 mg/mL) premix niCARdipine (Cardene) 40 mg/200 mL NS (0.2 mg/mL) premix 08-29 08:35: 00 08-30 22:24 :53 No 0mg/h 0-15 mg/hr (0-75 mL/hr), Intravenou s, Continuous , Starting on Sat08/29/25 at 0835, Notify Provider if the medication is at max dose and BP parameters are not able to be achieved., Infusion Type: Titrate, Initial Dose (mg/hr): 2.5 - 5, Titrate by (mg/hr): 2.5, Minimum titration timeframe (minutes): 5, Target Blood Pressure (mmHg): Other, Specify Goal: 120-150, Max Dose (mg/hr): 15 Albaro Valderrama Epic labetalol injection 10 mg labetalol injection 10 mg 08-29 03:11: 51 Yes 10mg 10 mg, Intravenou s, Every 1 hour PRN, high blood pressure, follow vital signs parameters order, Starting on Sat08/29/25 at 0311, Avoid if bradycardi a with HR<60 1st agent Albaro Valderrama Epic hydrALAZINE injection 10 mg hydrALAZINE injection 10 mg 08-29 03:11: 48 Yes 10mg Q6H 10 mg, Intravenou s, Every 6 hours PRN, high blood pressure, follow vital signs parameters order, Starting on Sat08/29/25 at 0311, 2nd agent Albaro Arredondo sodium chloride (NS) 0.9 % flush 10 mL sodium chloride (NS) 0.9 % flush 10 mL 08-29 01:50: 00 Yes 10mL Q12H 10 mL, Intravenou s, Every 12 hours, First dose on Sat08/29/25 at 0150, Administer at least once every 12 hours Albaro Arredondo sodium chloride 0.9 % infusion sodium chloride 0.9 % infusion 08-29 01:50: 00 09-01 07:16 :32 No 50mL/h 50 mL/hr, Intravenou s, Continuous , Starting on Sat08/29/25 at 0150 Albaro Arredondo levETIRAcet am (Keppra) injection 500 mg levETIRAcet am (Keppra) injection 500 mg 08-29 01:50: 00 08-31 07:50 :08 No 500mg Q.5D 500 mg, Intravenou s, Every 12 hours scheduled, First dose on Sat08/29/25 at 0150, Administer over 3 minutes IV push for doses up to 1500 mg. Albaro Arredondo acetaminoph en (Tylenol) tablet 1,000 mg acetaminoph en (Tylenol) tablet 1,000 mg 08-29 01:45: 20 Yes 1000mg Q6H 1,000 mg, Oral, Every 6 hours PRN, other, mild pain (1-3) fever > 100.5 degrees F, Starting on Sat08/29/25 at 0145, Not to exceed more than 4000 mg of acetaminop hen in 24 hours. Albaro Arredondo bisacodyl (Dulcolax) suppository 10 mg bisacodyl (Dulcolax) suppository 10 mg 08-29 01:45: 20 Yes 10mg Q24H 10 mg, Rectal, Daily PRN, constipati on, Starting on Sat08/29/25 at 0145 Albaro elif Valderrama Epic ondansetron (Zofran) injection 4 mg ondansetron (Zofran) injection 4 mg 08-29 01:45: 20 Yes 4mg Q6H 4 mg, Intravenou s, Every 6 hours PRN, nausea, vomiting, Starting on Sat08/29/25 at 0145 Albaro Calrkeann Epic sodium chloride 0.9 % infusion 250 mL sodium chloride 0.9 % infusion 250 mL 08-29 01:45: 19 Yes 250mL 250 mL, Intravenou s, As needed, For antibiotic flush to clear line, replace bag every 24 hours., Starting on Sat08/29/25 at 0145 Albaro asencio Irving Epic sodium chloride (NS) 0.9 % flush 10 mL sodium chloride (NS) 0.9 % flush 10 mL 08-29 01:45: 19 Yes 10mL 10 mL, Intravenou s, As needed, line care, Line Flush, Starting on Sat08/29/25 at 0145 Albaro Clarkeann Epic niCARdipine (Cardene) 40 mg/200 mL NS (0.2 mg/mL) premix niCARdipine (Cardene) 40 mg/200 mL NS (0.2 mg/mL) premix 08-29 00:10: 00 08-29 08:34 :17 No 0mg/h 0-15 mg/hr (0-75 mL/hr), Intravenou s, Continuous , Starting on Sat08/29/25 at 0010, Notify Provider if the medication is at max dose and BP parameters are not able to be achieved., Infusion Type: Titrate, Initial Dose (mg/hr): 2.5 - 5, Titrate by (mg/hr): 2.5, Minimum titration timeframe (minutes): 5, Target Blood Pressure (mmHg): SBP 140 - 160 mmHg, Max Dose (mg/hr): 15 Suoria l Lavelle Epic niCARdipine (Cardene) 40 mg/200 mL NS (0.2 mg/mL) premix - Pyxis Override Pull niCARdipine (Cardene) 40 mg/200 mL NS (0.2 mg/mL) premix - Pyxis Override Pull 08-28 21:40: 03 08-28 21:50 :00 No Starting on 08/28/25 at 2140, For 1 dose, Created by macarena Arredondo HYDROcodone -acetaminop hen (NORCO 5) 5-325 mg tablet 1 tablet 07-08 20:45: 00 07-08 20:50 :00 No 1{tbl} 1 tablet, Oral, ONCE, 1 dose, On Rena 07/08/25 at 1545, NITA [facility] iopamidol (ISOVUE 370-500 mL) injection 85 mL 07-08 19:45: 00 07-08 19:45 :00 No [id number] 85mL 85 mL, Intravenou s, ONCE, 1 dose, On Rena 07/08/25 at 1445, Routine [facility] acetaminoph en (TYLENOL) tablet 1,000 mg 07-05 18:15: 00 07-05 17:39 :00 No 1000mg 1,000 mg, Oral, ONCE, 1 dose, On 07/05/25 at 1315, Routine [facility] lactated ringers IV infusion 1,000 mL 07-05 16:30: 00 07-05 22:13 :37 No 1000mL at 75 mL/hr, 1,000 mL, IV Infusion, CONTINUOUS , Starting on Sat07/05/25 at 1130, Until Sat07/05/25 at 1713, Routine, PACU [facility] fentanyl PF (SUBLIMAZE (PF)) injection 25 mcg 07-05 16:15: 55 07-05 22:13 :37 No 25ug 25 mcg, Slow IV Push, Q5MIN PRN, 4 doses, Starting on Sat07/05/25 at 1115, Until Sat07/05/25 at 1713, Routine, Pain Scale 4-6, PACU [facility] fluticasone propionate 50 mcg/actuati on nasal spray 07-05 15:13: 37 Yes 2{spray } Use 2 Sprays in each nostril in the morning. [facility] losartan 50 mg tablet 07-05 15:13: 37 Yes 50mg Take 1 tablet by mouth every evening. [facility] ipratropium 42 mcg (0.06 %) nasal spray 07-05 15:13: 37 Yes 2{spray } Use 2 Sprays in each nostril as needed. [facility] risperiDONE 1 mg tablet 07-05 15:13: 37 Yes 1mg Take 1 tablet by mouth in the morning. [facility] BUPivacaine liposome (PF) (EXPAREL (PF)) 1.3 % (13.3 mg/mL) 266 mg, bupivacaine -epinephrin e-pf (SENSORCAIN E W/EPINEPHRI NE) 0.25 %-1:200,000 30 mL, NaCl 0.9% (NS) 70 mL 07-05 15:00: 00 07-05 16:10 :21 No PRN, Starting on Sat07/05/25 at 1000, Intra-op [facility] sodium chloride 0.9 % irrigation solution 07-05 14:45: 00 07-05 16:10 :21 No PRN, Starting on Sat07/05/25 at 0945, Until Sat07/05/25 at 1110, Intra-op [facility] celecoxib (CELEBREX) capsule 400 mg 07-05 12:30: 00 07-05 12:27 :00 No 400mg 400 mg, Oral, ONCE, 1 dose, On Sat07/05/25 at 0730, Routine, DSU Pre-op [facility] gabapentin (NEURONTIN) capsule 300 mg 07-05 12:30: 00 07-05 12:27 :00 No 300mg 300 mg, Oral, ONCE, 1 dose, On Sat07/05/25 at 0730, Routine, DSU Pre-op [facility] tranexamic acid (CYKLOKAPRO N) 1,000 mg/10 mL (100 mg/mL) 1,000 mg in NaCl 0.9% (NS) 110 mL V2B IV piggyback 07-05 05:00: 00 07-05 16:59 :00 No 1000mg [facility] aspirin 325 mg tablet 07-05 00:00: 00 08-05 04:59 :00 Yes [id number] 325mg Take 1 tablet by mouth in the morning and 1 tablet in the evening. Take with meals. For blood clot prevention . [facility] HYDROcodone -acetaminop hen 5-325 mg tablet 07-05 00:00: 00 07-13 04:59 :00 Yes [id number] 1{tbl} Take 1 tablet by mouth every 6 hours as needed for Pain (scale 7-10) for up to 7 days. [facility] metoprolol succinate 25 mg CSpX 06-15 09:35: 02 Yes Take by mouth. [facility] estradioL 0.01 % (0.1 mg/gram) vaginal cream 05-19 00:00: 00 Yes 1g Insert 1 g into vagina weekly. Uses at times [facility] nitrofurant oin 50 mg capsule 05-19 00:00: 00 Yes 50mg Take 1 capsule by mouth in the morning. [facility] buPROPion XL 300 mg 24 hr tablet 05-12 02:05: 20 Yes 300mg Take 1 tablet by mouth in the morning. [facility] montelukast 10 mg tablet 05-12 02:05: 20 Yes 10mg Take 1 tablet by mouth. [facility] sertraline HCl (SERTRALINE ORAL) 05-12 02:05: 20 Yes 25mg Take 25 mg by mouth in the morning. [facility] famotidine 20 mg tablet 03-03 00:00: 00 Yes 20mg Take 1 tablet by mouth in the morning and 1 tablet in the evening. [facility] famotidine 20 mg tablet 40 mg every 6 hours by oral route. famotidine 20 mg tablet 40 mg every 6 hours by oral route. 03-03 00:00: 00 No 40mg Q6H famotidine 20 mg tablet 40 mg every 6 hours by oral route. [facility] CLONAZEPAM ORAL 12-04 09:43: 48 Yes Take by mouth. [facility] rivastigmin e 4.6 mg/24 hour patch 12-04 00:00: 00 Yes [id number] 1{patch } Apply 1 Patch to skin daily. Call office for refills. [facility] neomycin-po lymyxin-hyd rocortisone otic solution 2020-12 00:00: 00 Yes [id number] 3[drp] Place 3 Drops in right ear 4 (four) times daily. [facility] pantoprazol e 20 mg EC tablet 2020-12 00:00: 00 Yes [id number] 20mg Take 1 tablet by mouth every morning. [facility] losartan-hy drochloroth iazide 50-12.5 mg per tablet 2020-12 00:00: 00 06-29 00:00 :00 No [id number] 1{tbl} Take 1 tablet by mouth daily. [facility] buPROPion XL 300 mg 24 hr tablet 07-28 10:17: 13 Yes 300mg Take 300 mg by mouth daily. [facility] montelukast 10 mg tablet 07-28 10:17: 13 Yes 10mg Take 10 mg by mouth. [facility] cephALEXin (KEFLEX) 500 mg capsule 07-25 00:00: 00 10-20 00:00 :00 No [id number] 500mg Take 1 capsule by mouth 2 (two) times daily. [facility] atorvastati n 20 mg tablet 07-21 00:00: 00 Yes [id number] 20mg Take 1 tablet by mouth at bedtime. [facility] IRON 325 mg (65 mg iron) tablet 07-21 00:00: 00 Yes [id number] 325mg Take 1 tablet by mouth 2 (two) times daily. [facility] traZODone 50 mg tablet 07-20 00:00: 00 Yes [id number] 50mg Take 1 tablet by mouth at bedtime. [facility] Diclofenac Sodium (VOLTAREN) 1 % gel 07-19 00:00: 00 Yes [id number] 103 Apply to area(s) 4 (four) times daily. Apply 4 g qid [facility] isosorbide mononitrate 60 mg 24 hr tablet 07-14 00:00: 00 Yes [id number] 60mg Take 1 tablet by mouth daily. [facility] amLODIPine 10 mg tablet 07-14 00:00: 00 Yes [id number] 10mg Take 1 tablet by mouth daily. [facility] escitalopra m oxalate 20 mg tablet 07-14 00:00: 00 Yes [id number] 20mg Take 1 tablet by mouth daily. [facility] pregabalin 150 mg capsule 07-14 00:00: 00 Yes [id number] 150mg Take 1 capsule by mouth at bedtime. [facility] losartan 25 mg tablet 07-14 00:00: 00 10-20 00:00 :00 No [id number] 25mg Take 1 tablet by mouth daily. [facility] melatonin 3 mg tablet 07-14 00:00: 00 10-20 00:00 :00 No [id number] 3mg Take 1 tablet by mouth at bedtime. [facility] Omeprazole 20 mg tablet 07-14 00:00: 00 10-20 00:00 :00 No [id number] 20mg Take 1 tablet by mouth 2 (two) times daily. [facility] furosemide 20 mg tablet TAKE 1 TABLET BY MOUTH EVERY DAY furosemide 20 mg tablet TAKE 1 TABLET BY MOUTH EVERY DAY No furosemide 20 mg tablet TAKE 1 TABLET BY MOUTH EVERY DAY [facility] losartan potassium (bulk) 50 mg losartan potassium (bulk) 50 mg No losartan potassium (bulk) 50 mg [facility] pantoprazol e 40 mg tablet,peter yed release TAKE 1 TABLET BY MOUTH EVERY DAY pantoprazol e 40 mg tablet,peter yed release TAKE 1 TABLET BY MOUTH EVERY DAY No pantoprazo le 40 mg tablet,del ayed release TAKE 1 TABLET BY MOUTH EVERY DAY [facility] Probiotic Probiotic No Probiotic [facility] trazodone 100 mg tablet TAKE 1 TABLET EVERY DAY AT BEDTIME FOR INSOMNIA trazodone 100 mg tablet TAKE 1 TABLET EVERY DAY AT BEDTIME FOR INSOMNIA No trazodone 100 mg tablet TAKE 1 TABLET EVERY DAY AT BEDTIME FOR INSOMNIA [facility] Cipro 500 mg tablet Take 1 tablet every 12 hours by oral route. Cipro 500 mg tablet Take 1 tablet every 12 hours by oral route. No 1 Q12H Cipro 500 mg tablet Take 1 tablet every 12 hours by oral route. [facility] metronidazo le metronidazo le No metronidaz ole [facility] phenazopyri dine 200 mg tablet TAKE ONE (1) CAPSULE(S) BY MOUTH THREE TIMES A DAY FOR TWO DAYS. phenazopyri dine 200 mg tablet TAKE ONE (1) CAPSULE(S) BY MOUTH THREE TIMES A DAY FOR TWO DAYS. No phenazopyr idine 200 mg tablet TAKE ONE (1) CAPSULE(S) BY MOUTH THREE TIMES A DAY FOR TWO DAYS. [facility] estradiol 0.01% (0.1 mg/gram) vaginal cream Insert 0.5 g 3 times a week by vaginal route for 90 days. estradiol 0.01% (0.1 mg/gram) vaginal cream Insert 0.5 g 3 times a week by vaginal route for 90 days. No .5g Q56H estradiol 0.01% (0.1 mg/gram) vaginal cream Insert 0.5 g 3 times a week by vaginal route for 90 days. [facility] nitrofurant oin macrocrysta l 50 mg capsule Take 1 capsule every day by oral route for 45 days. nitrofurant oin macrocrysta l 50 mg capsule Take 1 capsule every day by oral route for 45 days. No 1capsul e(s) Q1D nitrofuran toin macrocryst al 50 mg capsule Take 1 capsule every day by oral route for 45 days. [facility] cefuroxime axetil 250 mg tablet TAKE 1 TABLET BY MOUTH TWICE A DAY cefuroxime axetil 250 mg tablet TAKE 1 TABLET BY MOUTH TWICE A DAY No cefuroxime axetil 250 mg tablet TAKE 1 TABLET BY MOUTH TWICE A DAY [facility] Vital Signs Vital Name Observation Time Observation Value Comments S ource Heart rate 2025-09-03 08:18:36 78 /min Yahir Valderrama Epic Oxygen saturation in Arterial blood by Pulse oximetry 2025-09-03 08:18:36 96 /min Dorene Arredondo Systolic blood pressure 2025-09-03 08:18:32 140 mm[Hg] Dorene villegas Epic Diastolic blood pressure 2025-09-03 08:18:32 65 mm[Hg] Dorene Arredondo Body temperature 2025-09-03 08:18:32 36.67 Georgie Dorene Arredondo Respiratory rate 2025-09-03 03:49:24 18 /min Dorene Arredondo Body height 2025-09-01 13:27:00 147 cm Francisco Arredondo Body weight 2025-09-01 13:27:00 79 kg Francisco Valderrama Epic BMI 2025-09-01 13:27:00 36.56 kg/m2 Francisco Valderrama Epic Systolic blood pressure 2025-08-19 16:06:00 207 mm[Hg] [facility] Diastolic blood pressure 2025-08-19 16:06:00 82 mm[Hg] [facility] Heart rate 2025-08-19 16:06:00 54 /[facility] 2025-08-19 16:05:00 147.3 cm [facility] in Arterial blood by Pulse oximetry 2025-08-19 16:05:00 98 /min [facility] Systolic blood pressure 2025-07-22 13:13:00 185 mm[Hg] [facility] Diastolic blood pressure 2025-07-22 13:13:00 70 mm[Hg] [facility] Heart rate 2025-07-22 13:13:00 57 /min [facility] 2025-07-22 13:12:00 147.3 [facility] 2025-07-22 13:12:00 80.74 [facility] BMI 2025-07-22 13:12:00 37.20 kg/m2 [facility] in Arterial blood by Pulse oximetry 2025-07-22 13:12:00 98 /min [facility] Systolic blood pressure 2025-07-13 13:15:00 208 mm[Hg] [facility] Diastolic blood pressure 2025-07-13 13:15:00 85 mm[Hg] [facility] Heart rate 2025-07-13 13:15:00 54 /min [facility] Body height 2025-07-13 13:14:00 147.3 cm [facility] Oxygen saturation in Arterial blood by Pulse oximetry 2025-07-13 13:14:00 98 /min [facility] Systolic blood pressure 2025-07-08 21:31:00 179 mm[Hg] Stanton o [facility] Diastolic blood pressure 2025-07-08 21:31:00 60 mm[Hg] [facility] Heart rate 2025-07-08 21:31:00 81 /min [facility] Body temperature 2025-07-08 21:31:00 36.94 Georgie [facility] Respiratory rate 2025-07-08 21:31:00 16 /min [facility] Oxygen saturation in Arterial blood by Pulse oximetry 2025-07-08 21:31:00 97 /min [facility] Body height 2025-07-08 15:46:00 147.3 cm [facility] Body weight 2025-07-08 15:46:00 80.74 kg [facility] BMI 2025-07-08 15:46:00 37.20 kg/m2 [facility] Systolic blood pressure 2025-07-05 18:00:00 135 mm[Hg] Stanton o [facility] Diastolic blood pressure 2025-07-05 18:00:00 49 mm[Hg] [facility] Heart rate 2025-07-05 18:00:00 55 /min [facility] Body temperature 2025-07-05 18:00:00 36.22 Georgie [facility] Respiratory rate 2025-07-05 18:00:00 9 /min [facility] Oxygen saturation in Arterial blood by Pulse oximetry 2025-07-05 18:00:00 99 /min [facility] Body weight 2025-06-29 15:00:00 80.74 kg Univ [facility] BMI 2025-06-29 15:00:00 37.20 kg/m2 Univ [facility] Systolic blood pressure 2025-07-05 17:00:00 125 mm[Hg] [facility] Diastolic blood pressure 2025-07-05 17:00:00 53 mm[Hg] [facility] Heart rate 2025-07-05 17:00:00 58 /min [facility] Respiratory rate 2025-07-05 17:00:00 10 /min [facility] Oxygen saturation in Arterial blood by Pulse oximetry 2025-07-05 17:00:00 99 /min [facility] Body temperature 2025-07-05 16:11:00 36.11 Georgie [facility] Body weight 2025-06-29 15:00:00 80.74 kg Univ [facility] BMI 2025-06-29 15:00:00 37.20 kg/m2 [facility] Sy[facility] blood pressure 2025-06-15 14:35:00 132 mm[Hg] [facility] Diastolic blood pressure 2025-06-15 14:35:00 79 mm[Hg] [facility] Heart rate 2025-06-15 14:35:00 62 /min [facility] Respiratory rate 2025-06-15 14:35:00 20 /min [facility] Body height 2025-06-15 14:35:00 147.3 cm [facility] Body weight 2025-06-15 14:35:00 80.967 kg Univ [facility] BMI 2025-06-15 14:35:00 37.31 kg/m2 Univ [facility] Oxygen saturation in Arterial blood by Pulse oximetry 2025-06-15 14:35:00 100 /min [facility] Systolic blood pressure 2025-05-11 14:09:00 201 mm[Hg] [facility] Diastolic blood pressure 2025-05-11 14:09:00 74 mm[Hg] [facility] Heart rate 2025-05-11 14:09:00 47 /min [facility] Body height 2025-05-11 14:08:00 147.3 cm [facility] Body weight 2025-05-11 14:08:00 81.058 kg [facility] BMI 2025-05-11 14:08:00 37.35 kg/m2 [facility] Oxygen saturation in Arterial blood by Pulse oximetry 2025-05-11 14:08:00 99 /min [facility] Height 2025-04-23 00:00:00 58 [in_i] [facility] Body Weight 2025-04-23 00:00:00 178 [lb_av] [facility] BMI (Body Mass Index) 2025-04-23 00:00:00 37.2 kg/m2 [facility] BP Diastolic 2025-04-23 00:00:00 78 mm[Hg] [facility] BP Systolic 2025-04-23 00:00:00 148 mm[Hg] [facility] Medical Systolic blood pressure 2021-12-04 15:39:00 147 mm[Hg] Stanton o [facility] Diastolic blood pressure 2021-12-04 15:39:00 59 mm[Hg] Stanton o [facility] Heart rate 2021-12-04 15:39:00 64 /min [facility] Body height 2021-12-04 15:39:00 152.4 cm [facility] Body weight 2021-12-04 15:39:00 61.1 kg [facility] BMI 2021-12-04 15:39:00 26.31 kg/m2 [facility] Oxygen saturation in Arterial blood by Pulse oximetry 2021-12-04 15:39:00 98 /min [facility] Procedures Procedure Date / Time Performed Performing Clinician Source POC GLUCOSE UNSOLICITED RESULTS 2025-09-03 08:26:00 [facility] COMPLETE BLOOD COUNT (NO DIFF) 2025-09-03 03:33:00 Raina Beauchamp [facility] BASIC METABOLIC PANEL 2025-09-03 03:33:00 Raina Durham [facility] MAGNESIUM LEVEL 2025-09-03 03:33:00 Matt Beauchamp [facility] PHOSPHORUS LEVEL 2025-09-03 03:33:00 Ra rai Beauchamp [facility] Holter monitor 2025-09-03 00:00:00 Sherry marion [facility] POC GLUCOSE UNSOLICITED RESULTS 2025-09-02 17:19:00 Bessie Layton [facility] POC GLUCOSE UNSOLICITED RESULTS 2025-09-02 12:20:00 Bessie Layton [facility] POC GLUCOSE UNSOLICITED RESULTS 2025-09-02 10:46:00 Bessie Layton [facility] POC GLUCOSE UNSOLICITED RESULTS 2025-09-02 08:37:00 Bessie Layton [facility] COMPLETE BLOOD COUNT (NO DIFF) 2025-09-02 00:07:00 Raina Beauchamp [facility] BASIC METABOLIC PANEL 2025-09-02 00:07:00 Raina Durham [facility] POC GLUCOSE UNSOLICITED RESULTS 2025-09-01 16:27:00 Derian Luna [facility] TRANSTHORACIC ECHO (TTE) COMPLETE 2025-09-01 16:18:00 Raina Beauchamp [facility] BASIC METABOLIC PANEL 2025-09-01 12:49:00 Raina Durham [facility] PHOSPHORUS LEVEL 2025-09-01 05:29:00 Ra rai Beauchamp [facility] COMPLETE BLOOD COUNT (NO DIFF) 2025-09-01 05:29:00 Raina Beauchamp [facility] BASIC METABOLIC PANEL 2025-09-01 05:29:00 Raina Durham [facility] LIPID PANEL W/CALCULATED LDL 2025-09-01 05:29:00 Raina Beauchamp [facility] HEMOGLOBIN A1C 2025-09-01 05:29:00 Matt Beauchamp [facility] MAGNESIUM LEVEL 2025-09-01 05:29:00 Matt Beauchamp [facility] MRI BRAIN STROKE PROTOCOL 2025-08-31 18:23:00 Raina Khan [facility] MRI ANGIOGRAM NECK WO IV CONTRAST 2025-08-31 18:16:19 Raina Beauchamp [facility] MRI ANGIOGRAM BRAIN WO IV CONTRAST 2025-08-31 18:15:24 Nito Raina [facility] CT BRAIN WO IV CONTRAST 2025-08-31 08:57:11 Yoel osborne Raina [facility] COMPLETE BLOOD COUNT (NO DIFF) 2025-08-31 05:12:00 Nito Raina [facility] BASIC METABOLIC PANEL 2025-08-31 05:12:00 Juan johnson Raina [facility] COMPLETE BLOOD COUNT (NO DIFF) 2025-08-30 05:46:00 Nito Raina [facility] BASIC METABOLIC PANEL 2025-08-30 05:46:00 Juan johnson Raina [facility] MAGNESIUM LEVEL 2025-08-30 05:46:00 Nito Matt cisneros [facility] PHOSPHORUS LEVEL 2025-08-30 05:46:00 Ra rai Beauchamp [facility] POC GLUCOSE UNSOLICITED RESULTS 2025-08-29 13:41:00 Baron Rich [facility] UA WITH MICROSCOPIC NO CULTURE 2025-08-29 10:04:00 Matt Beauchampamelia Clark [facility] URINE CULTURE 2025-08-29 10:04:00 Matt Beauchamp amelia [facility] MRSA BY PCR 2025-08-29 06:49:00 Wendi izquierdo [facility] RESISTANT ACINETOBACTER SCREEN CULTURE 2025-08-29 06:49:00 Angelia [facility] PT AND PTT 2025-08-29 06:44:00 Wendi izquierdo, [facility] COMPLETE BLOOD COUNT 2025-08-29 06:44:00 Connor reynolds [facility] AUTOMATED DIFFERENTIAL 2025-08-29 06:44:00 Terrence davey [facility] COMPREHENSIVE METABOLIC PANEL 2025-08-29 06:44:00 Angelia [facility] TYPE AND SCREEN 2025-08-29 06:44:00 [facility] COMPLETE BLOOD COUNT W/DIFF AND PLATELET 2025-08-29 06:44:00 Oliver Galan [facility] ECG 12-LEAD 2025-08-29 01:25:[address] [facility] [address] BRAIN WO IV CONTRAST 2025-08-29 01:14:50 Viet green Rosa Isela [facility] THROMBOELASTOGRAPH RAPID 2025-08-29 00:16:00 Demetria tate Rosa [facility] COMPLETE BLOOD COUNT 2025-08-29 00:16:00 Tyson Rosa Isela [facility] AUTOMATED DIFFERENTIAL 2025-08-29 00:16:00 Stacy ds [facility] BASIC METABOLIC PANEL 2025-08-29 00:16:00 Mackenzie s Rosa [facility] COMPLETE BLOOD COUNT W/DIFF AND PLATELET 2025-08-29 00:16:00 Tyson Rosa [facility] Electrocardiogram, 12-lead 2025-08-29 00:00:00 [facility] XR KNEE 3 VW LEFT 2025-08-19 16:17:05 Louann Go [facility] CT ANGIOGRAM HEAD 2025-07-08 18:51:17 Chino Benitez [facility] CT ANGIOGRAM NECK 2025-07-08 18:51:17 Chino Benitez [facility] CT KNEE LEFT WO CONTRAST 2025-07-08 18:50:41 Chino Mccarty [facility] CT HEAD WO CONTRAST 2025-07-08 18:38:00 Chino Sarmiento [facility] XR KNEE 3 VW LEFT 2025-07-08 17:43:54 Chino Benitez [facility] HB ECG ROUTINE & RHYTHM STRIP 2025-07-08 17:40:42 Chino George [facility] URINALYSIS 2025-07-08 17:29:00 Chino George [facility] TROPONIN I 2025-07-08 17:23:00 Chino George [facility] COMP. METABOLIC PANEL (83635) 2025-07-08 17:23:00 Chino George [facility] CBC WITH DIFF 2025-07-08 17:23:00 Chino George [facility] XR KNEE <3 VW LEFT 2025-07-05 16:44:00 Alondra Saab [facility] [address] - [place] ARTHRP KNE CONDYLE&PLATU MEDIAL&LAT COMPARTMENTS 2025-07-05 13:53:00 Alondra Saab [facility] HB ABO GROUPING 2025-07-05 12:45:00 Alondra Saab [facility] HB ABO GROUPING 2025-07-05 12:45:00 Alondra Saab [facility] XR KNEE 3 VW LEFT 2025-05-11 14:38:38 Alondra Saab [facility] XR KNEE 3 VW RIGHT 2025-05-11 14:14:44 Alondra Saab [facility] US, kidney 2025-04-30 00:00:[address], abdomen + pelvis, w/o contrast 2025-04-23 00:00:00 [facility] Colpocleisis 2023-06-03 00:00:00 Poli Damon edical Mastectomy 2022-09-12 00:00:00 Poli Damon edical [id number] 2022-07-23 00:00:00 CHAAB.01 [facility] Cardiac - Coronary Artery Stent 2022-07-02 00:00:00 [facility] Repair of Urinary Bladder 2008-12-02 00:00:00 [facility] Hysterectomy 1973-12-02 00:00:00 Loriia Nelson edical Basic Metabolic Panel Sherry Kim Complete Blood Count (no diff) Dorene Arredondo Magnesium Level [facility] Her nelly Arredondo [facility] Plan of Care Planned Activity Planned Date Details Comments Source Encounters Start Date/Time End Date/Time Encounter Type Admission Type Attending Clinicians Care Facility Care Department Encounter ID Source 2025-09-10 12:00:00 2025-09-10 12:00:00 Outpatient [facility] [id number] [facility] 2025-09-07 11:00:00 2025-09-07 11:00:00 Outpatient [facility] [id number] [facility] 2025-08-28 21:22:00 2025-09-03 12:08:00 Hospital Encounter A Shiloh, Enrrique Paul, Baron Luna, Derian Layton, Braulio Payne [facility] 1.840.114 350.1.13.70 8.2.7.2.686 [id number] [facility] 2025-08-29 00:13:10 2025-08-29 00:13:10 Outpatient MHIEEPIC MHIEEPIC [id number] [facility] 2025-08-29 00:07:57 2025-08-29 00:07:57 Outpatient MHIEEPIC MHIEEPIC [id number] [facility] 2025-08-29 00:00:00 2025-08-29 00:07:56 Orders Only System, Provider Not In System, Provider Not In [facility] 1.840.114 350.1.13.70 8.2.7.2.686 [id number] [facility] 2025-08-19 11:04:49 2025-08-19 23:59:00 Hospital Encounter Ambrocio Abbi [facility] 1.840.114 350.1.13.10 4.2.7.2.686 [id number] [facility] 2025-08-19 11:00:00 2025-08-19 11:33:00 Office Visit Ambrocio GO LOUANN ABBI, [facility] 1.840.114 350.1.13.10 4.2.7.2.686 [id number] [facility] 2025-08-04 00:00:00 2025-08-04 10:02:08 Telephone Alondra Saab [facility] 1.2840.114 350.1.13.10 4.2.7.2.686 [id number] [facility] 2025-06-24 00:00:00 2025-07-31 18:32:26 Patient Secure Msg Doctor Unassigned, [place] Doctor Unassigned, [place] [facility] 1.2.840.114 350.1.13.10 4.2.7.2.686 [id number] [facility] 2025-06-28 00:00:00 2025-07-31 18:25:57 Patient Secure Msg Doctor Unassigned, [place] Doctor Unassigned, [place] [facility] 1.2840.114 350.1.13.10 4.2.7.2.686 [id number] [facility] 2025-07-22 08:00:00 2025-07-22 08:23:01 [facility] 1.2840.114 350.1.13.10 4.2.7.2.686 [id number] [facility] 2025-07-20 00:00:00 2025-07-20 10:20:22 Telephone Alondra Saab [facility] 1.2840.114 350.1.13.10 4.2.7.2.686 [id number] [facility] 2025-07-19 14:30:00 2025-07-19 14:30:00 Outpatient R [facility] [id number] [facility] 2025-07-13 08:45:00 2025-07-13 08:45:00 Office Visit R Alondra Saab [facility] 1.84.114 350.1.13.10 4.2.7.2.686 [id number] [facility] 2025-07-08 10:50:00 2025-07-08 16:55:00 Emergency X AUFDERHEIDE , CHINO AUFDERHEIDE , CHINO [facility] ERT [id number] [facility] 2025-07-05 07:05:00 2025-07-05 13:25:00 Hospital Encounter R ALONDRA SAAB CRAIG [facility] SOR [id number] [facility] 2025-07-05 09:30:00 2025-07-05 12:01:00 Surgery Alondra Saab [facility] 1.84.114 350.1.13.10 4.2.7.2.686 [id number] [facility] 2025-07-01 00:00:00 2025-07-01 14:05:20 Telephone Alondra Saab [facility] 1..114 350.1.13.10 4.2.7.2.686 [id number] [facility] 2025-06-29 13:26:30 2025-06-29 23:59:00 Hospital Encounter R Alondra Saab [facility] 1..114 350.1.13.10 4.2.7.2.686 [id number] [facility] 2025-06-29 13:26:27 2025-06-29 23:59:00 Hospital Encounter R ALONDRA SAAB CRAIG [facility] 1.2.840.114 350.1.13.10 4.2.7.2.686 [id number] [facility] 2025-06-29 13:45:00 2025-06-29 14:00:00 Pediatrician Managing Partner Visit R Maribel, [facility] Main SiddharthAlondra, [facility] Main FLALEJANDRO AT [facility] 1.2840.114 350.1.13.10 4.2.7.2.686 [id number] [facility] 2025-06-28 00:00:00 2025-06-28 15:40:31 Telephone Alondra Saab [facility] 1.2840.114 350.1.13.10 4.2.7.2.686 [id number] [facility] 2025-06-25 10:15:00 2025-06-25 11:47:00 Ancillary Visit R ALONDRA SAAB CRAIG [facility] PROFESSIO NAL BUILDING 1.2.114 350.1.13.10 4.2.7.2.686 [id number] [facility] 2025-06-17 00:00:00 2025-06-17 09:50:24 Prep for Procedure Alondra Saab [facility] 1.114 350.1.13.10 4.2.7.2.686 [id number] [facility] 2025-06-15 09:45:00 2025-06-15 10:13:03 Office Visit R Alondra Saab [facility] 1.2.114 350.1.13.10 4.2.7.2.686 [id number] [facility] 2025-06-03 00:00:00 2025-06-03 00:00:00 KELLY Bustamante: [address], [place] [address] , Ph. [facility] - GC_GCBZW_Jenny fonseca Dwale* [id number] [facility] 2025-05-19 00:00:00 2025-05-19 00:00:00 Vero Ortega MD: [address], [place] [address] , Ph. [facility] - GC_GCBZW_Jenny fonseca Dw[place]* [id number] [facility] 2025-05-11 09:36:39 2025-05-11 23:59:00 Hospital Encounter R ALONDRA SAAB [facility] 1.2.840.114 350.1.13.10 4.2.7.2.686 [id number] [facility] 2025-05-11 08:30:00 2025-05-11 09:58:39 Office Visit R Alondra Saab [facility] 1.2.840.114 350.1.13.10 4.2.7.2.686 [id number] [facility] 2025-05-11 09:08:02 2025-05-11 09:35:00 Hospital Encounter R ALONDRA SAAB [facility] 1.2.840.114 350.1.13.10 4.2.7.2.686 [id number] [facility] 2025-05-04 00:00:00 2025-05-04 00:00:00 Vero Ortega MD: [address], [place] [address] , Ph. [facility] - GC_GCBZW_Jenny fonseca Dwale* [id number] [facility] 2025-04-30 00:00:00 2025-04-30 00:00:00 Vero Ortega MD: [address], [place] [address] , Ph. [facility] - GC_GCBZW_[facility]* [id number] [facility] 2025-04-23 00:00:00 2025-04-23 00:00:00 Vero Ortega MD: [address], [place] [address] , Ph. [facility] - GC_GCBZW_[facility]* [id number] [facility] 2024-10-19 12:30:00 2024-10-19 13:15:00 [facility] 1..840.114 350.1.13.70 8.2.7.2.686 [id number] [facility] 2024-10-19 11:54:48 2024-10-19 13:15:00 Outpatient Elective SELBSZANE Bynum MHEOUT [id number] [facility] 2024-07-31 16:33:00 2024-08-02 12:18:00 Inpatient EM Ronald Ochoa [facility] MAS4 [id number] [facility] 2024-07-27 12:41:08 2024-07-27 13:08:01 Outpatient Elective SELBSTZANE SteffanyOUT MHEOUT [id number] [facility] 2024-07-27 12:20:00 2024-07-27 12:30:00 Office Visit Zane Mari [facility] 1..840.114 350.1.13.70 8.2.7.2.686 [id number] [facility] 2024-07-20 11:50:00 2024-07-20 12:53:49 Office Visit Zane Mari [employer] [facility] 1.2.840.114 350.1.13.70 8.2.7.2.686 [id number] [facility] 2024-07-20 11:44:53 2024-07-20 12:53:49 Outpatient Elective ZANE MARI EOUT EOUT [id number] [facility] 2023-06-03 05:24:00 2023-06-04 10:26:00 Inpatient Vero Weems HCAPM MEDI.01 [id number] [facility] 2022-07-23 10:48:00 2022-07-24 15:28:00 Inpatient Kayden Domingo HCACL INTE.02 [id number] [facility] 2022-01-24 11:00:00 2022-01-24 11:00:00 Outpatient TRACY SCHMIDT [facility] [id number] [facility] 2022-01-24 11:00:00 2022-01-24 11:00:00 Outpatient TRACY SCHMIDT [facility] [id number] [facility] 2022-01-24 11:00:00 2022-01-24 11:00:00 Outpatient TRACY SCHMIDT [facility] [id number] [facility] 2022-01-05 10:30:00 2022-01-05 10:30:00 Outpatient PHILIP GRAJEDA [facility] [id number] [facility] 2021-12-04 09:20:00 2021-12-04 10:33:16 Outpatient SHAGGY GENTILE HOWARD [facility] [id number] [facility] 2021-12-04 09:20:00 2021-12-04 10:33:16 Office Visit Shaggy Crowley [facility] 1.2.840.114 350.1.13.10 4.2.7.2.686 [id number] [facility] 2021-11-30 00:00:00 2021-11-30 00:00:00 Letter (Out) Maulik Sherman [facility] BU[facility] 1.2.840.114 350.1.13.10 4.2.7.2.686 [id number] [facility] 2021-11-30 00:00:00 2021-11-30 00:00:00 Patient Secure Msg Doctor Unassigned, [place] [facility] 1.2.840.114 350.1.13.10 4.2.7.2.686 [id number] [facility] 2021-11-28 20:40:00 2021-11-28 20:40:00 Outpatient R BISI FLORES [facility] [id number] [facility] 2021-11-28 11:00:00 2021-11-28 12:13:06 Outpatient R MAULIK SHERMAN OGECHUKWU [facility] [id number] [facility] 2021-11-28 11:00:00 2021-11-28 12:13:06 Office Visit Maulik Sherman [facility] 1.2.840.114 350.1.13.10 4.2.7.2.686 [id number] [facility] 2021-11-28 11:00:00 2021-11-28 12:13:06 Outpatient R MAULIK SHERMAN OGECHUKWU [facility] [id number] [facility] 2021-11-28 09:20:00 2021-11-28 09:32:16 Outpatient BISI CARMONA [facility] [id number] [facility] 2021-11-28 09:20:00 2021-11-28 09:32:16 Urgent Care Bisi Flores [facility] 1.284.114 350.1.13.10 4.2.7.2.686 [id number] [facility] 2021-11-27 00:00:00 2021-11-27 00:00:00 Telephone Tracy Harris [facility] PROFESSIO NAL BUILDING 1.84.114 350.1.13.10 4.2.7.2.686 [id number] [facility] 2021-10-31 00:00:00 2021-10-31 00:00:00 Patient Secure Msg Doctor Unassigned, [place] [facility] 1..114 350.1.13.10 4.2.7.2.686 [id number] [facility] 2021-10-30 09:35:25 2021-10-30 23:59:00 Outpatient R SHANNA JONAH [facility] [id number] [facility] 2021-10-30 09:35:25 2021-10-30 23:59:00 Hospital Encounter Jonah Otero [facility] 1.84.114 350.1.13.10 4.2.7.2.686 [id number] [facility] 2021-10-29 11:07:00 2021-10-29 12:25:00 Emergency X ANA WHITEHEAD [facility] ERT [id number] [facility] 2021-10-29 11:07:00 2021-10-29 12:25:00 Emergency Sharmila Whiteheade [facility] 1.2.114 350.1.13.10 4.2.7.2.686 [id number] [facility] 2021-10-29 11:07:00 2021-10-29 12:25:00 Emergency X ANA WH[place]HEAD [facility] ERT [id number] [facility] 2021-10-20 13:45:00 2021-10-20 13:45:00 Outpatient R TRACY HARRIS [facility] [id number] [facility] 2021-10-20 11:00:00 2021-10-20 13:18:32 Outpatient R TRACY HARRIS [facility] [id number] [facility] 2021-10-20 10:53:42 2021-10-20 13:18:32 Office Visit [facility] 1.2.840.114 350.1.13.10 4.2.7.2.686 [id number] [facility] 2021-10-20 13:00:33 2021-10-20 13:15:33 Pediatrician Managing Partner Visit Pob, [facility] 1..840.114 350.1.13.10 4.2.7.2.686 [id number] [facility] 2021-10-20 00:00:00 2021-10-20 00:00:00 Orders Only Doctor Unassigned, [place] [facility] 1.840.114 350.1.13.10 4.2.7.2.686 [id number] [facility] 2021-10-02 18:03:00 2021-10-02 21:16:00 Emergency X PAM WOOTEN [facility] ERT [id number] [facility] 2021-10-02 18:03:00 2021-10-02 21:16:00 Emergency X PAM WOOTEN [facility] ERT [id number] [facility] 2021-10-02 18:03:00 2021-10-02 21:16:00 Emergency WootenNicoláskay Albrecht [facility] 1.0.114 350.1.13.10 4.2.7.2.686 [id number] [facility] 2021-09-16 00:00:00 2021-09-16 00:00:00 Patient Secure Msg Doctor Unassigned, [place] [facility] 1..114 350.1.13.10 4.2.7.2.686 [id number] [facility] 2021-09-06 12:32:10 2021-09-06 13:32:10 Office Visit Shanna Jonah [facility] 1..114 350.1.13.10 4.2.7.2.686 [id number] [facility] 2021-09-06 13:00:00 2021-09-06 13:00:00 Outpatient R JONAH OTERO [facility] [id number] [facility] 2021-09-06 13:00:00 2021-09-06 13:00:00 Outpatient JONAH DAWKINS [facility] [id number] [facility] 2021-09-06 00:00:00 2021-09-06 00:00:00 Telephone Do Arboleda [facility] 1.114 350.1.13.10 4.2.7.2.686 [id number] [facility] 2021-08-09 00:00:00 2021-08-09 00:00:00 Patient Secure Msg Doctor Unassigned, [place] [facility] 1..114 350.1.13.10 4.2.7.2.686 [id number] [facility] 2021-08-04 09:20:00 2021-08-04 09:20:00 Outpatient SHAGGY GENTILE HOWARD [facility] [id number] [facility] 2021-08-04 09:20:00 2021-08-04 09:20:00 Outpatient SHAGGY GENTILE HOWARD [facility] [id number] [facility] 2021-08-04 00:00:00 2021-08-04 00:00:00 Patient Secure Msg Doctor Unassigned, [place] [facility] 1.114 350.1.13.10 4.2.7.2.686 [id number] [facility] 2021-08-03 09:40:00 2021-08-03 09:40:00 Outpatient R TRACY HARRIS [facility] [id number] [facility] 2021-07-28 09:40:37 2021-07-28 12:11:09 [facility] 1.114 350.1.13.10 4.2.7.2.686 [id number] [facility] 2021-07-28 10:00:00 2021-07-28 10:00:00 Outpatient PHILIP GRAJEDA [facility] [id number] [facility] 2021-07-28 00:00:00 2021-07-28 00:00:00 Orders Only Doctor Unassigned, [place] [facility] 1.114 350.1.13.10 4.2.7.2.686 [id number] [facility] 2021-07-27 12:52:31 2021-07-27 23:59:00 Hospital Encounter Tracy Harris [facility] 1.114 350.1.13.10 4.2.7.2.686 [id number] [facility] 2021-07-27 12:52:31 2021-07-27 23:59:00 Hospital Encounter Ravi [facility] 1.2.840.114 350.1.13.10 4.2.7.2.686 [id number] [facility] 2021-07-27 12:51:56 2021-07-27 12:51:56 Hospital Encounter Ravi [facility] 1.2.840.114 350.1.13.10 4.2.7.2.686 [id number] [facility] 2021-07-27 12:51:56 2021-07-27 12:51:56 Hospital Encounter Ravi [facility] 1.2.840.114 350.1.13.10 4.2.7.2.686 [id number] [facility] 2021-07-27 00:00:00 2021-07-27 00:00:00 Outpatient R KELLYTRACY CRAIG [facility] [id number] [facility] 2021-07-27 00:00:00 2021-07-27 00:00:00 Patient Secure Msg Doctor Unassigned, [place] [facility] 1.2.840.114 350.1.13.10 4.2.7.2.686 [id number] [facility] 2021-07-26 00:00:00 2021-07-26 00:00:00 Telephone KatemagoTracy orona [facility] 1.2.840.114 350.1.13.10 4.2.7.2.686 [id number] [facility] 2021-07-26 00:00:00 2021-07-26 00:00:00 Telephone Ravi [facility] Professio nal Building 1.2.840.114 350.1.13.10 4.2.7.2.686 [id number] [facility] 2021-07-25 09:18:21 2021-07-25 09:59:32 Office Visit Berna Dong [facility] 1.2.840.114 350.1.13.10 4.2.7.2.686 [id number] [facility] 2021-07-25 09:18:21 2021-07-25 09:59:32 Office Visit Berna Dong [facility] 1.2.840.114 350.1.13.10 4.2.7.2.686 [id number] [facility] 2021-07-25 09:15:00 2021-07-25 09:15:00 Outpatient R BERNA DONG [facility] [id number] [facility] 2021-07-25 00:00:00 2021-07-25 00:00:00 Patient Secure Msg Doctor Unassigned, [place] [facility] 1.2.840.114 350.1.13.10 4.2.7.2.686 [id number] [facility] 2021-07-21 11:45:00 2021-07-21 23:59:00 Hospital Encounter Kellyrafaelayeyo Tracy [facility] 1.2.840.114 350.1.13.10 4.2.7.2.686 [id number] [facility] 2021-07-21 09:17:42 2021-07-21 09:57:42 Office Visit Tracy Harris [facility] 1.2.840.114 350.1.13.10 4.2.7.2.686 [id number] [facility] 2021-07-21 09:40:00 2021-07-21 09:40:00 Outpatient R TRACY HARRIS [facility] [id number] [facility] 2021-07-21 08:07:36 2021-07-21 08:22:36 Pediatrician Managing Partner Visit Pob, Ad[facility] Lab Main Tracy Harris [facility] 1.2.840.114 350.1.13.10 4.2.7.2.686 [id number] [facility] 2021-07-19 00:00:00 2021-07-19 00:00:00 Patient Secure Msg Doctor Unassigned, [place] [facility] 1.2.840.114 350.1.13.10 4.2.7.2.686 [id number] [facility] 2021-07-14 14:02:17 2021-07-14 16:02:16 Office Visit Tracy Harris [facility] 1.2.840.114 350.1.13.10 4.2.7.2.686 [id number] [facility] 2021-07-14 15:45:18 2021-07-14 15:45:27 Office Visit Tracy Harris [facility] 1.2.840.114 350.1.13.10 4.2.7.2.686 [id number] [facility] 2021-07-14 14:00:00 2021-07-14 14:00:00 Outpatient R TRACY HARRIS [facility] [id number] [facility] 2021-07-14 00:00:00 2021-07-14 00:00:00 Telephone Tracy Harris [facility] 1.2.840.114 350.1.13.10 4.2.7.2.686 [id number] [facility] 2021-07-05 13:17:00 2021-07-05 17:36:00 Emergency Cresencio Bush [facility] 1.2.840.114 350.1.13.10 4.2.7.2.686 [id number] [facility] 2021-07-05 13:17:00 2021-07-05 13:17:00 Emergency X CRESENCIO [facility] ERT [id number] [facility] Results Test Description Test Time Test Comments Results Result Co mments Source [facility] [id number] 17:21:23* Test Item Value Reference Range Interpretation Comme nts POC Glu (test code = 26296-8) 115 mg/dL 70-99 H POC Performing Location (shoaib t code = 0458920408) [facility] Lab Interpretation (test cod e = 99387-1) Abnormal [facility] [id number] 12:38:16* Test Item Value Reference Range Interpretation Comme nts POC Glu (test code = 51921-8) 134 mg/dL 70-99 H POC Performing Location (shoaib t code = 7751150696) J3 N[facility]U Lab Interpretation (test cod e = 36184-2) Abnormal [facility] [id number] 11:06:59* Test Item Value Reference Range Interpretation Comme nts POC Glu (test code = 92379-0) 163 mg/dL 70-99 H POC Glu Comment 1 (test code = 6391715356) Notified RN/MD POC Performing Location (shoaib t code = 5714145596) [facility]3 [facility] Lab Interpretation (test cod e = 00748-9) Abnormal [facility] [id number] 10:24:53* Test Item Value Reference Range Interpretation Comme nts POC Glu (test code = 47163-3) 129 mg/dL 70-99 H POC Performing Location (shoaib t code = 4293908109) [facility]3 NIMU Lab Interpretation (test cod e = 21216-3) [facility] pxedcnwh7537-69-69 18:27:12* Test Item Value Reference Range Interpretation Comme nts BSA (test code = 6867488288) 1.8 m2 LV est EF (test code = 8807-0) 67 % LV biplane EF (test code = 47152-9) 63.6 % LV A2C EF (test code = 590033-6) 59 % LV A4C EF (test code = 225294-3) 69 % LV stroke vol (test code = 0173702062) 83.36 ml LV SV (BP) (test code = 5525613119) 28.10 ml LV SI (A2C) (test code = 9967450503) 29.10 ml LV SV (A4C) (test code = 7553672858) 27.10 ml LVIDd (test code = 3275289852) 61 mm LV ESV BP (test code = 4871778728) 16.10 mL LVIDs (test code = 6767157922) 38 mm LV ESV A2C (test code = 3531978704) 20.30 mL LV EDV BP (test code = 1204295178) 44.20 mL LV ESV A4C (test code = 2283450224) 12.40 mL LV EDV A2C (test code = 9786876259) 49.40 mL LV EDV A4C (test code = 5492423924) 39.50 mL LV ESV 2D (test code = 4066974) 61.95 mL LV EDV 2D (test code = 1732710) 186.93 mL IVSd (test code = 2256779393) 9 mm LVPWd (test code = 2107523831) 9 mm LVOT diam (test code = 1733029953) 19 mm LVOT area (test code = 0113619645) 2.84 cm2 Fractional Shortening 2D (test code = 9947251540) 38 % LVLd (A2C) (test code = 1658371570) 73.30 mm LVLd (A4C) (test code = 6969812437) 72.40 mm LVLs (A2C) (test code = 5601635217) 60.20 mm LVLs (A4C) (test code = 2457720111) 58.20 mm MV E pk paula (test code = 9122316261) 1.08 m/s MV A pk paula (test code = 1115192815) 1.30 m/s MV E/A ratio (test code = 1659491411) MV e' lateral paula (test code = 6133424443) 5.00 cm/s MV DT (test code = 5235666240) 191 ms MV e' septal paula (test code = 7319944) 5.11 cm/s MV E/e' lateral (test code = 4093283) MV E/e' septal (test code = 7053488913) LA vol BP (test code = 2251504969) 49.50 ml LVOT pk paula (test code = 2184043074) 1.15 m/s LVOT mn grad (test code = 9004703841) mmHg LVOT Vmean (test code = 2535764698) 0.81 m/s LVOT VTI (test code = 7784102223) 29.4 cm LA area A2C (test code = 3695771126) 21.00 cm2 LA area A4C (test code = 0769993903) 16.20 cm2 LA size (test code = 8781355625) 39 mm LA ESV A2C (test code = 9626468718) 60.848578480452376 mL LA ESV A4C (test code = 7901695558) 60.433291318839472 mL RV NBA (test code = 8576788671) 9.75 cm2 RV LEIGHA (test code = 9377893801) 20.90 cm2 RVOT VTI (test code = 0505436547) 21.4 cm RVOT pk paula (test code = 8683274806) 0.81 m/s TAPSE (test code = 8429939309) 17 mm RVSP (test code = 7977209) mmHg RVOT Vmean (test code = 5101615147) 0.61 m/s Est RA pressure (test code = 7334061978) mmHg AV mn grad (test code = 86576-4) mmHg AV pk grad (test code = 9131053703) mmHg AV mn paula (test code = 5410177466) 1.55 m/s AV pk paula (test code = 20663-6) 2.35 m/s AV VTI (test code = 3456367800) 53.8 cm LVOT pk grad (test code = 6134541130) mmHg AV area cont VTI (test code = 9721892897) 1.55 cm2 AV area pk paula (test code = 1277568775) 1.39 cm2 LVOT Vmax/AV Vmax (test code = 1776057320) 0.49 {ratio} MV PHT (test code = 5609368978) 56 ms MV area PHT (test code = 9220341848) 3.93 cm2 TR pk paula (test code = 3796309454) 3.53 m/s RAP (test code = 1370985666) mmHg TR pk grad (test code = 0445775132) mmHg PV mn grad (test code = 0550392016) mmHg PV pk paula (test code = 9505397898) 1.08 m/s PV pk grad (test code = 6350667760) mmHg PV VTI (test code = 3221123) 24.1 cm RVOT mn grad (test code = 7578328877) mmHg RVOT pk grad (test code = 9562249673) mmHg PV mn paula (test code = 9322061488) 0.72 m/s Ao Root diam diastole (test code = 4467411648) 27 mm RV FAC 2D (test code = 2033170183) IVSd 2D (test code = 9758605) 9 cm LV stroke vol index (test code = 65939093) 46.41 ml/m2 LV SI (BP) (test code = 7229645197) 15.65 ml/m2 LV SI (A2C) (test code = 3209004336) 16.20 ml/m2 LV SI (A4C) (test code = 0112038402) 15.09 ml/m2 LV LVIDd index (test code = 04868202) 33.96 mm/m2 LV ESV index BP (test code = 3050469527) 8.96 mL/m2 LVIDs index (test code = 94214882) 21.16 mm/m2 LV ESV index A2C (test code = 0914879971) 11.30 ml/m2 LV EDV index BP (test code = 0888883178) 24.61 mL/m2 LV ESV index A4C (test code = 2040842596) 6.90 ml/m2 LV EDV index A2C (test code = 7068005871) LV EDV index A4C (test code = 9381321612) 21.99 ml/m2 LV ESV index 2D (test code = 0097197825) 34.49 ml/m2 LV EDV index 2D (test code = 8154770552) 104.08 ml/m2 LV RWT 2D (test code = 7451173420) LV mass 2D (test code = 0151769250) 221.96 g LV mass index 2D (test code = 0977149375) 123.58 g/m2 LA vol index (test code = 6628077863) 27.56 mL/m2 LA diam systole Index (test code = 8478830397) 21.71 mm/m2 LA Vol I BSA (test code = 7141270960) 33.57 ml/m2 LA Vol I (A4C) BSA (test code = 6018406817) 20.93 ml/m2 RV NBA index (test code = 6639684867) 5.43 cm2/m2 RV LEIGHA index (test code = 4826650373) 11.64 cm2/m2 AV area index (test code = 7940816267) 0.86 cm2/m2 LV stroke vol index (test code = 7586538051) 46.41 mL/m2 sPAP (test code = 0380440780) mmHg AVAI (Vmax) BSA (test code = 7936059579) 0.77 cm2/m2 MV avg E/e' (test code = 6530838623) AV paula ratio (test code = 9440080266) RA vol (test code = 0538953551) 16.4 mL/m2 LV mass size 1 (test code = 2745097136) 222.0 cm Radiology Study observation (narrative) (test code = 00512-0) HANH (test code = HANH) [facility] Vntgkhn5873-98-95 16:49:09* Test Item Value Reference Range Interpretation Comme nts POC Glu (test code = 34879-6) 127 mg/dL 70-99 H POC Glu Comment 1 (test code = 2542912465) Notified RN/MD POC Performing Location (shoaib t code = 9833086813) [facility] (test cod e = 59101-0) Abnormal [facility] angiogram brain wo IV [id number] 21:30:59Exam: MRA brain and neck without contrast. DATE: 08/31/2025. INDICATION: Stroke. COMPARISON: MRI brain 08/31/2025 TECHNIQUE: 3-D ayor-os-ibmhpv imaging of the alutiiq of [place] was performedwithout contrast. 3D eumu-fv-xoszwi imaging of the carotid bifurcations is alsoincluded 3-D maximum intensity projection images are also provided. FINDINGS: MRA NECK: Imaging is somewhat limited by patient wfpflhyszu-mc-nbozvc imagesfrom the carotid bifurcations to the intracranial circulation without sourceimages extending inferiorly to the great vessel origins and aortic arch. No significant stenosis or occlusion of the visualized portions of the distalcommon carotid arteries and cervical internal carotid arteries. The visualizeddistal cervical vertebral arteries are unremarkable without stenosis orocclusion. MRA BRAIN: Imaging is somewhat limited by patient motionThe distal internal carotid arteriesare normal in contour and caliber. Areas ofdecreased flow related signal in the bilateral petrous segments of the ICAs areartifactual. The proximal branches of the anterior and middle cerebral arteriesare unremarkable without flow limiting stenosis or occlusion. The anteriorcommunicating artery is patent. The distal intracranial vertebral arteries,basilar artery and cerebellar branches are unremarkable without flow- limitingstenosis. The proximal branches of the posterior cerebral arteries are normal inappearance without flow limiting stenosis or occlusion. The left P1 segment isdevelopmentally small with a -type left [employer] with contributions from theleft posterior communicating artery.. No intracranial aneurysms or vascularmalformations are identified by MRA. IMPRESSION: 1. Unremarkable MRA of the brain. 2. Limited imaging of the carotid bifurcations without inclusion of the proximalcommon carotid arteries and vertebral arteries. No stenosis or occlusion of thecarotid bifurcations and distal cervical vertebral arteries Report finalized by: Rosangela Dueñas MD 08/31/2025 21:30MallerRosangela lamb MD - 08/31/2025 Exam: MRAbrain and neck without contrast.DATE: 08/31/2025.INDICATION: Stroke.COMPARISON: MRI brain 08/31/2025TECHNIQUE: 3-D zgfx-bb-gbksug imaging of the alutiiq of [place] was performedwithout contrast. 3D prko-vs-sgozoa imaging of the carotid bifurcations is alsoincluded 3-D maximum intensity projection images are also provided.FINDINGS:MRA NECK: Imaging is somewhat limited by patient motion oaht-oc-lnmrbs imagesfrom the carotid bifurcations to the intracranial circulation without sourceimages extending inferiorly to the great vessel origins and aortic arch.No significant stenosis or occlusion of the vis ualized portions of the distalcommon carotid arteries and cervical internal carotid arteries. The visualizeddistal cervical vertebral arteries are unremarkable without stenosis orocclusion.MRA BRAIN:Imaging is somewhat limited by patient motionThe distal internal carotid arteries are normal in contour and caliber. Areas ofdecreased flow related signal in the bilateral petrous segments of the ICAs areartifactual. The proximal branches of the anterior and middle cerebral arteriesare unremarkablewithout flow limiting stenosis or occlusion. The anteriorcommunicating artery is patent. The distalintracranial vertebral arteries,basilar artery and cerebellar branches are unremarkable without flow- limitingstenosis. The proximal branches of the posterior cerebral arteries are normal inappearancewithout flow limiting stenosis or occlusion. The left P1 segment isdevelopmentally small with a -type left [employer] with contributions from theleft posterior communicating artery.. No intracranial aneurysms or vascularmalformations are identified by MRA.IMPRESSION:1. Unremarkable MRA of the brain.2. Limited imaging of the carotid bifurcations without inclusion of the proximalcommon carotid arteries and vertebral arteries. No stenosis or occlusion of thecarotid bifurcations and distal cervical vertebral arteriesReport finalized by: Rosangela Dueñas MD 08/31/2025 21:30[facility] angi[facility] neck wo IV [id number] 21:30:59Exam: MRA brain and neck without contrast. DATE: 08/31/2025. INDICATION: Stroke. COMPARISON: MRI brain 08/31/2025 TECHNIQUE: 3-D wuvr-rr-zxnguf imaging of the alutiiq of [place] was performedwithout contrast. 3D hrmq-mi-ksioqi imaging of the carotid bifurcations is alsoincluded 3-D maximum intensity projection images are also provided. FINDINGS: MRA NECK: Imaging is somewhat limited by patient motion opgg-lf-pfjjqh imagesfrom the carotid bifurcations to the intracranial circulation without sourceimages extending inferiorly to the great vessel origins and aortic arch. No significant stenosis or occlusion of the visualized portions of the distalcommon carotid arteries and cervical internal carotid arteries. The visualizeddistal cervical vertebral arteries are unremarkable without stenosis orocclusion. MRA BRAIN: Imaging is somewhat limited by patient motionThe distal internal carotid arteriesare normal in contour and caliber. Areas ofdecreased flow related signal in the bilateral petrous segments of the ICAs areartifactual. The proximal branches of the anterior and middle cerebral arteriesare unremarkable without flow limiting stenosis or occlusion. The anteriorcommunicating artery is patent. The distal intracranial vertebral arteries,basilar artery and cerebellar branches are unremarkable without flow- limitingstenosis. The proximal branches of the posterior cerebral arteries are normal inappearance without flow limiting stenosis or occlusion. The left P1 segment isdevelopmentally small with a -type left [employer] with contributions from theleft posterior communicating artery.. No intracranial aneurysms or vascularmalformations are identified by MRA. IMPRESSION: 1. Unremarkable MRA of the brain. 2. Limited imaging of the carotid bifurcations without inclusion of the proximalcommon carotid arteries and vertebral arteries. No stenosis or occlusion of thecarotid bifurcations and distal cervical vertebral arteries Report finalized by: Rosangela Dueñas MD 08/31/2025 21:30MalRosangela ramírez MD - 08/31/2025 Exam: MRAbrain and neck without contrast.DATE: 08/31/2025.INDICATION: Stroke.COMPARISON: MRI brain 08/31/2025TECHNIQUE: 3-D ptdx-eu-lkrwah imaging of the alutiiq of [place] was performedwithout contrast. 3D krpw-or-cgjnar imaging of the carotid bifurcations is alsoincluded 3-D maximum intensity projection images are also provided.FINDINGS:MRA NECK: Imaging is somewhat limited by patient motion rrxb-fa-hnrlvg imagesfrom the carotid bifurcations to the intracranial circulation without sourceimages extending inferiorly to the great vessel origins and aortic arch.No significant stenosis or occlusion of the vis ualized portions of the distalcommon carotid arteries and cervical internal carotid arteries. The visualizeddistal cervical vertebral arteries are unremarkable without stenosis orocclusion.MRA BRAIN:Imaging is somewhat limited by patient motionThe distal internal carotid arteries are normal in contour and caliber. Areas ofdecreased flow related signal in the bilateral petrous segments of the ICAs areartifactual. The proximal branches of the anterior and middle cerebral arteriesare unremarkablewithout flow limiting stenosis or occlusion. The anteriorcommunicating artery is patent. The distalintracranial vertebral arteries,basilar artery and cerebellar branches are unremarkable without flow- limitingstenosis. The proximal branches of the posterior cerebral arteries are normal inappearancewithout flow limiting stenosis or occlusion. The left P1 segment isdevelopmentally small with a -type left [employer] with contributions from theleft posterior communicating artery.. No intracranial aneurysms or vascularmalformations are identified by MRA.IMPRESSION:1. Unremarkable MRA of the brain.2. Limited imaging of the carotid bifurcations without inclusion of the proximalcommon carotid arteries and vertebral arteries. No stenosis or occlusion of thecarotid bifurcations and distal cervical vertebral arteriesReport finalized by: Rosangela Dueñas MD 08/31/2025 21:30[facility] brain STROKE [id number] 21:25:05EXAM: MRI BRAIN WITHOUT CONTRAST STROKE PROTOCOL, ABBREVIATED DATE: 08/31/2025 18:00 INDICATION: stroke ?. COMPARISON: CT brain without contrast 08/31/2025 TECHNIQUE: Brain stroke protocol including axial DWI, axial FLAIR, and axial SWIor GRE images.IV contrast: None. FINDINGS:Small area of restricted diffusion in the posterior inferior right cerebellarhemisphere corresponding to the hypodensity onCT consistent with acuteinfarction. There is some associated susceptibility likely representingpetechial hemorrhage. Again noted is evolving multicompartmental intracranial hemorrhage. Evolvingparenchymal contusion in the right temporal lobe with associated susceptibility.Small volume intraventricular hemorrhage with susceptibility layeringdependently in the occipital horns. Areas of small volumesubdural hemorrhageare unchanged with susceptibility and areas of diffusion restriction. Scatteredsubarachnoid hemorrhage with susceptibility. No midline shift or downwardherniation. The basal cisterns are patent. IMPRESSION: Small acute infarct in the posterior inferior right cerebellum withassociated petechial hemorrhage. Evolving multicompartmental intracranial hemorrhage. No midline shift ordownward herniation Report finalized by: Rosangela Dueñas MD 08/31/2025 21:25MalRosangela ramírez MD - 08/31/2025 EXAM: MRI BRAIN WITHOUT CONTRAST STROKE PROTOCOL, ABBREVIATEDDATE: 08/31/2025 18:00INDICATION: stroke .COMPARISON: CT brain without contrast 08/31/2025TECHNIQUE: Brain stroke protocol including axial DWI, axial FLAIR, and axial SWIor GRE images.IV contrast: None.FINDINGS:Small area of restricted diffusion in the posterior inferior right cerebellarhemisphere corresponding to the hypodensity on CT consistent with acuteinfarction.There is some associated susceptibility likely representingpetechial hemorrhage.Again noted is evolving multicompartmental intracranial hemorrhage. Evolvingparenchymal contusion in the right temporallobe with associated susceptibility.Small volume intraventricular hemorrhage with susceptibility lay eringdependently in the occipital horns. Areas of small volume subdural hemorrhageare unchanged with susceptibility and areas of diffusion restriction. Scatteredsubarachnoid hemorrhage with susceptibility. No midline shift or downwardherniation. The basal cisterns are patent.IMPRESSION: Small acuteinfarct in the posterior inferior right cerebellum withassociated petechial hemorrhage.Evolving multicompartmental intracranial hemorrhage. No midline shift ordownward herniationReport finalized by: Rosangela Dueñas MD 08/31/2025 21:25 [facility] BRAIN WO IV [id number] 10:49:45Addendum by Omar Salazar MD on 08/31/2025 10:58 AM CDTAddendum: In addition, there is a small wedge-shaped hypodensity in the right posteriorinferior cerebellum, age- indeterminate infarct. This can be further evaluatedwith MRI. Significant findings of age-indeterminate infarct communicated to DINA Miranda by Omar Salazar MD via telephone with the finding acknowledged at08/31/2025 10:57. Report addended by: Omar Salazar MD 08/31/2025 10:58EXAM: CT BRAIN WITHOUT CONTRAST DATE: 08/31/2025 8:43 INDICATION: headache ?Nontraumatic intracerebral hemorrhage, unspecified COMPARISON: CT brain 08/21/2025. TECHNIQUE: Axial CT images of the brain were obtained. Sagittal and coronalreformats.IV contrast: NoneDLP: Refer to CT protocol form FINDINGS: No interval adverse change. Scattered bilateraltrace subarachnoid hemorrhage in the frontal convexities,unchanged. Left frontal convexity mixed density subdural hemorrhage is unchanged.Right temporal pole hemorrhagic contusion is unchanged. Left a nterior temporallobe extra-axial hemorrhage is unchanged. Left tentorial leaflet subduralhematoma is unchanged. Punctate right tentorial leaflet hyperattenuation is lessconspicuous on this examination. Wedge-shaped hypodensity within the right inferior posterior cerebellum isunchanged. No new hemorrhage or brain parenchymal density abnormality. The ventricles are unchanged in size and configuration. The osseous structures are unchanged since the most recent exam, including rightparietal occipital bone fracture. IMPRESSION:* ?Stable multicompartment hemorrhage. No hydrocephalus or worsening masseffect. Report finalized by: Omar Salazar MD 08/31/2025 10:49NgoOmar MD - 08/31/2025 EXAM: CT BRAIN WITHOUT CONTRASTDATE: 08/31/2025 8:43INDICATION: headache Nontraumatic intracerebral hemorrhage, unspecifiedCOMPARISON: CT brain .TECHNIQUE: Axial CT images of the brain were obtained. Sagittal and coronalreformats.IV contrast: NoneDLP: Refer to CT protocol formFINDINGS:No interval adverse change.Scattered bilateral trace subarachnoid hemorrhage in the frontal convexities,unchanged.Left frontal convexity mixed densitysubdural hemorrhage is unchanged.Right temporal pole hemorrhagic contusion is unchanged. Left anterior temporallobe extra-axial hemorrhage is unchanged. Left tentorial leaflet subduralhematoma is unchanged. Punctate right tentorial leaflet hyperattenuation is lessconspicuous on this examination.Wedge-shaped hypodensity within the right inferior posterior cerebellum isunchanged.No new hemorrhage or brain parenchymal density abnormality.The ventricles are unchanged in size and configuration.The osseous structures are unchanged since the most recent exam, including rightparietal occipital bone fracture.IMPRESSION:* Stable multicompartment hemorrhage. No hydrocephalus or worsening masseffect.Report finalized by: Omar Salazar MD 08/31/2025 10:49[facility] 12 lead (arrhythmia)2025-08-31 08:25:22* Test Item Value Reference Range Interpretation Comme nts Ventricular Rate (test code = 8078013291) BPM Atrial Rate (test code = 9857794466) BPM VT Interval (test code = 5333602978) 196 ms QRS Duration (test code = 2308245338) 120 ms QT/QTc (test code = 7565251375) 434 ms QTc Calculation (test code = 9516372778) 530 ms P-Biscoe (test code = 3624968041) degrees R-Biscoe (test code = 6123998723) degrees T-Biscoe (test code = 5504268761) degrees IMP (test code = IMP) PXN (test code = PXN) [facility] EpicResistant Acinetobacter Screen [id number] 06:56:25* Test Item Value Reference Range Interpretation Comme nts Acinetobacter Culture (test code = 74364-3) No Acinetobacter isolated [facility] Msdsgtd3241-56-74 13:46:13* Test Item Value Reference Range Interpretation Comme nts POC Glu (test code = 53687-2) 187 mg/dL 70-99 H POC Performing Location (shoaib t code = 6918793842) SP1 ER Lab Interpretation (test cod e = 67079-3) [facility] IV [id number] 03:38:24EXAM: CT BRAIN WITHOUT CONTRAST DATE: 08/29/2025 1:13 INDICATION: sdh ? COMPARISON: Outside CT head from same day. TECHNIQUE: Axial CT images of the brain were obtained. Sagittal and coronalreformats.IV contrast: NoneDLP: Refer to CT protocol form FINDINGS:0.7 x 1.3 x 1.1 cm hyperattenuating focus along the inferior right temporal lobecompatible with intraparenchymal contusion. Mild associated surroundingvasogenic edema. Hyperattenuating extra-axial fluid collection noted along the left middlecranial fossa along the medial temporal lobe measures up to 0.6 cm in maximumthickness. Asymmetric thickening of the left tentorium cerebelli measuring up to 0.3 cm inthickness with layering subdural hematoma. Additional thin focus of thickening along the right tentorium (best seen tpcaxy620 image 34), likely thin subdural hematoma. Thin layering hyperattenuating material along the left temporal convexity likelyreflects an additional thin focus of subdural hematoma. Small focus of subarachnoid hemo rrhage along the right frontal convexity ( image 14). No midline shift, downward transtentorial, or tonsillar herniation. The paranasal sinuses and mastoid air cells are predominantly clear.There is a sagittally oriented right occipital bone fracture. Hematoma along the superior occipitalscalp near the vertex. IMPRESSION:1. ?Redemonstrated multicompartment intracranial hemorrhage, nonsignificantlychanged compared to the outside exam: Small right temporal intraparenchymalhematoma, in the left greater than right tentorial leaflet subdural hemorrhage,thin left frontotemporal convexitysubdural hemorrhage, and trace right frontalconvexity subarachnoid hemorrhage.2. ?No midline shift or herniation.3. ?Right occipital bone nondisplaced fracture. Critical findings of intracranial hemorrhage were communicated to Dr. Iggy Oquendo, RES via telephone with the finding acknowledged at08/29/2025 1:38. This report was dictated by a Sewer System Supervisor/Fellow/IVETT: JAMES Alvarado 08/29/2025 1:38 This report was dictated by a Sewer System Supervisor/Fellow/Physician Mobile Application Tester. Ihave personally reviewed the images as well as the interpretation and agree withthefindings. Report finalized by: Nicolas Bentley MD 08/29/2025 3:38Mc, Nicolas Anne MD - 08/29/2025 EXAM: CT BRAIN WITHOUT CONTRASTDATE: 08/29/2025 1:13INDICATION: sdh COMPARISON: Outside CT head from same day.TECHNIQUE: Axial CT images of thebrain were obtained. Sagittal and coronalreformats.IV contrast: NoneDLP: Refer to CT protocol formFINDINGS:0.7 x 1.3 x 1.1 cm hyperattenuating focus along the inferior right temporal lobecompatible with intraparenchymal contusion. Mild associated surroundingvasogenic edema.Hyperattenuating extra-axial fluid collection noted along the left middlecranial fossa along the medial temporal lobe measures up to 0.6 cm in maximumthickness.Asymmetric thickening of the left tentorium cerebelli measuring up to 0.3 cm inthickness with layering subdural hematoma.Additional thin focus of thickening along the right tentorium (best seen image 34), likely thin subdural hematoma.Thin layering hyperat tenuating material along the left temporal convexity likelyreflects an additional thin focus of subdural hematoma.Small focus of subarachnoid hemorrhage along the right frontal convexity ( image 14).No midline shift, downward transtentorial, or tonsillar herniation.The paranasal sinuses and mastoid air cells are predominantly clear.There is a sagittally oriented right occipital bone fracture.Hematoma along the superior occipital scalp near the vertex.IMPRESSION:1. Redemonstrated multicompartment intracranial hemorrhage, nonsignificantlychanged compared to the outside exam: Small right temporal intraparenchymalhematoma, in the left greater than right tentorial leaflet subdural hemorrhage,thin left frontotemporal convexity subdural hemorrhage, and trace right frontalconvexity subarachnoid hemorrhage.2. No midline shift or herniation.3. Right occipital bone nondisplaced fracture.Cr itical findings of intracranial hemorrhage were communicated to Dr. Iggy Oquendo, RES via telephone with the finding acknowledged at08/29/2025 1:38.This report was dictated by aRadiology Resident/Fellow/IVETT: Abdiaziz Banuelos, RES 08/29/2025 1:38This report was dictated by a Sewer System Supervisor/Fellow/Physician Mobile Application Tester. Ihave personally reviewed the images as well as the interpretation and agree withthe findings.Report finalized by: Nicolas Bentley MD 08/29/2025 3:38[facility] Knee 3 vw left 2025-08-19 18:14:52EXAM: XR KNEE <3 VW LEFT HISTORY: 84 years old Female with left TKR follow-up. COMPARISON: X-rayleft knee, 3 view from 07/08/2025. FINDINGS: Radiographs of the left knee demonstrate a left total knee arthroplasty inanatomic alignment without acute periprosthetic fracture or lucency. Smalljoint effusion is mild residual soft tissue swelling. No erosions orperiosteal reaction. Vascular calcifications are again noted.[facility] left wo [id number] 19:54:49ORDERING PHYSICIAN: CHINO GEORGE. HISTORY: Knee replacement, periprosthetic fracture suspected TECHNIQUE: CT left knee without contrast. ?This examination was performedaccording to ALARA (As Low As Reasonably Achievable). COMPARISON: None. FINDINGS: Bones/Joints: A total knee arthroplastyis in anatomic alignment. Nofracture is identified. Blood and gas foci are seen within the reamingtrack located within the central intramedullary distal femur. There is atrace joint effusion. Soft Tissue: Muscles maintain normal bulk and density. Vascularcalcifications are present. Scattered periarticular gas foci are compatiblewith recent postoperative state. There are anterior surgical skin stap les.[facility] Angiogram [id number] 19:10:33CT ANGIOGRAM HEAD, CT ANGIOGRAM NECK HISTORY: Female 84 years Vertigo, central COMPARISON: None TECHNIQUE: CT angiographic images of the head and neck were obtained afteradministration of IV contrast. Multiplanar reformats including maximumintensity projection images submitted for review. FINDINGS:CTA HEAD: The PICA origin is visualized bilaterally. The basilar artery ishypoplastic but patent. The superior cerebellar arteries are unremarkable.The posterior cerebral arteries are patent. origin of the leftposterior cerebral artery. The distal cervical, petrous, cavernous and supraclinoidinternal carotidarteries are patent. Atherosclerosis of the carotid siphons withouthigh-grade stenosis. The anterior and middle cerebral arteries are unremarkable. An anteriorcommunicating artery is visualized. The dural venous sinuses are grossly patent. CT ANGIOGRAM NECK: Classic three-vessel arch anatomy identified. Atherosclerosis of the aorticarch. The great vessel ostia are patent. The subclavian arteries demonstrate normal contrast opacification. The bilateral common and internal carotidarteries are patent. There isatherosclerosis of the carotid bulbs without high-grade stenosis. The vertebral artery ostia patent. No flow-limiting stenosis is identifiedwithin the cervical segments. ? The visualized lung morel are clear. Surgical clips are noted in the right neck.[facility] Angiogram [id number] 19:10:33CT ANGIOGRAM HEAD, CT ANGIOGRAM NECK HISTORY: Female 84 years Vertigo, central COMPARISON: None TECH NIQUE: CT angiographic images of the head and neck were obtained afteradministration of IV contrast. Multiplanar reformats including maximumintensity projection images submitted for review. FINDINGS:CTA HEAD: The PICA origin is visualized bilaterally. The basilar artery ishypoplastic but patent. The superior cerebellar arteries are unremarkable.The posterior cerebral arteries are patent. origin of the leftposterior cerebral artery. The distal cervical, petrous, cavernous and supraclinoidinternal carotidarteries are patent. Atherosclerosis of the carotid siphons withouthigh-grade stenosis. The anterior and middle cerebral arteries are unremarkable. An anteriorcommunicating artery is visualized. The dural venous sinuses are grossly patent. CT ANGIOGRAM NECK: Classic three-vessel arch anatomy identified. Atherosclerosis of the aorticarch. The great vessel ostia are patent. The subclavian arteries demonstrate normal contrast opacification. The bilateral common and internal carotidarteries are patent. There isatherosclerosis of the carotid bulbs without high-grade stenosis. The vertebral artery ostia patent. No flow-limiting stenosis is identifiedwithin the cervical segments. ? The visualized lung morel are clear. Surgical clips are noted in the right neck.[facility] Head wo [id number] 18:44:11EXAM: CT HEAD WO CONTRAST HISTORY: 84 years-old [...] Trace fluid within the right mastoid air cells.The paranasal air sinusesare clear. The calvarium and central skull base are unremarkable.[facility]vineTroponin [id number] 18:13:20* Test Item Value Reference Range Interpretation Comme nts TROPONIN I (test code = 6664495803) 0.023 ng/mL <=0.034 HANH (test code = HANH) Reference (Normal) Range (defined by the 99th percentile reference limit): <= 0.034 ng/mL Note: Cardiac troponin begins to rise 3-4 hours after the onset of ischemia. Repeat in 4-6 hours if the sample was drawn within 3-4 hours of the onset of the symptom and found normal. Diagnosis of myocardial injury is made with acute changes in cTn concentrations with at least one serial sample above the 99th percentile upper reference limit (URL), taken together with the patient's clinical presentation. Biotin has been reported to cause a negative bias, interpret results relative to patient's use of biotin. Lab Interpretation (test code = 37318-5) Normal [facility] [place], [place]. Metabolic Panel (14804)2025-07-08 18:02:37* Test Item Value Reference Range Interpretation Comme nts NA (test code = 3963603861) 136 mmol/L 135-145 K (test code = 3213242225) 4.2 mmol/L 3.5-5.0 CL (test code = 6756438424) 108 mmol/L 98-108 CO2 TOTAL (test code = 1423271886) 21 mmol/L 23-31 L AGAP (test code = 7395688815) 7 2-16 BUN (test code = 3336242493) 21 mg/dL 7-23 GLUCOSE (test code = 4305330191) 145 mg/dL 70-110 H CREATININE (test code = 2160-0) 1.25 mg/dL 0.50-1.04 H TOTAL BILI (test code = 4841592002) 1 mg/dL 0.1-1.1 CALCIUM (test code = 1970026138) 8.1 mg/dL 8.6-10.6 L T PROTEIN (test code = 4684527850) 6.3 g/dL 6.3-8.2 ALBUMIN (test code = 8608348221) 3.5 g/dL 3.5-5.0 ALK PHOS (test code = 2493201922) 77 U/L 34-122 ALTv (test code = 1742-6) 14 U/L 5-35 AST(SGOT) (test code = 2608546718) 20 U/L 13-40 eGFR (test code = 62882-9) 42.3 mL/min/1.73m2 CKD-EPI eGFR (2020). Assuming creatinine has been stable day-to-day for at least three months, the eGFR indicates Category G3b (30 - 44 mL/min/1.73 m2) Lab Interpretation (test code = 43481-9) Abnormal [facility] K[facility] 3 vw [id number] 17:53:50EXAM: XR KNEE 3 VW LEFT HISTORY: [...] surgicalstaples is noted. Arterial vascular calcifications are present.[facility]rapevineCbc with [id number] 17:43:45* Test Item Value Reference Range Interpretation [...] g/dL 31.6-35.1 L RDW-SD (test code = 01598-3) 49.6 fL 39.0-49.9 RDW-CV (test code = 788-0) 14.2 % 12.0-15.5 PLT (test code = 777-3) 142 166-358 L MPV (test code = 00228-7) 11.8 fL 9.5-12.9 NRBC/100 WBC (test code = 8851537132) 0 0.0-10.0 NRBC x10^3 (test code = 6357163449) See_Comment [Automated messa ge] The system which generated this result transmitted reference range: 10*3/?L. The reference range was not used to interpret this result as normal/abnormal. GRAN MAT (NEUT) % (test code = 770-8) 83.8 % IMM GRAN % (test code = 8275279651) 0.4 % LYMPH % (test code = 736-9) 8.6 % MONO % (test code = 5905-5) 6.4 % EOS % (test code = 713-8) 0.5 % BASO % (test code = 706-2) 0.3 % GRAN MAT x10^3(ANC) (test code = 7613281654) 9.48 10*3/uL 1.88-7.09 H IMM GRAN x10^3 (test code = 1659568797) 0.05 10*3/uL 0.00-0.06 LYMPH x10^3 (test code = 731-0) 0.97 10*3/uL 1.32-3.29 L MONO x10^3 (test code = 742-7) 0.73 10*3/uL 0.33-0.92 EOS x10^3 (test code = 711-2) 0.06 10*3/uL 0.03-0.39 BASO x10^3 (test code = 704-7) 0.03 10*3/uL 0.01-0.07 Lab Interpretation (test code = 59476-2) Abnormal [facility] K[facility] <3 vw [id number] 21:26:54EXAM: XR KNEE <3 VW LEFT HISTORY: 84 years-old Female; Provided indication: s/p knee arthroplasty . COMPARISON: None FINDINGS: Radiographs of the left knee demonstrate interval placement of total kneearthroplasty with expected soft tissue and intra-articular gas and smallknee joint effusion. There is no acute periprosthetic fracture. Surgicalstaples overlying the anterior skin are seen. Vascular calcifications arenoted. Diffuse soft tissue swelling is present. [facility]vine[facility] and Screen - This is a pre-surgical type and screen. ONCE [id number] 13:24:00* Test Item Value Reference Range Interpretation Comme nts ABO & RH (test code = 20) O POSITIVE IAT (test code = 1185) Negative [facility] Screen - This is a pre-surgical type and screen. ONCE [id number] 13:24:00* Test Item Value Reference Range Interpretation Comme nts ABO & RH (test code = 20) O POSITIVE IAT (test code = 1185) Negative [facility]vine[facility]inalysis, gnbatcop7117-32-24 11:58:25* Test Item Value Reference Range Interpretation Comme nts Leukocytes (test code = Leukocytes) Negative Nitrite (test code = Nitrite) negative Urobilinogen (test code = Urobilinogen) Normal Protein (test code = Protein) 2+ pH (test code = pH) 6.0 Blood (test code = Blood) Negative Specific [place] (test code = Specific [place]) 1.015 Ketone (test code = Ketone) Negative Bilirubin (test code = Bilirubin) Negative Glucose (test code = Glucose) Negative Appearance (test code = Appearance) Clear Color (test code = Color) Yellow [facility] Medicalurinalysis, bgvmchcp2902-57-54 14:15:47* Test Item Value Reference Range Interpretation Comme nts Leukocytes (test code = Leukocytes) Negative Nitrite (test code = Nitrite) negative Urobilinogen (test code = Urobilinogen) Normal Protein (test code = Protein) Trace pH (test code = pH) 6.0 Blood (test code = Blood) Negative Specific [place] (test code = Specific [place]) 1.010 Ketone (test code = Ketone) Negative Bilirubin (test code = Bilirubin) Negative Glucose (test code = Glucose) Negative Appearance (test code = Appearance) Slightly Cloudy Color (test code = Color) Yellow [facility] Medicalurinalysis, [id number] 15:40:58* Test Item Value Reference Range Interpretation Comme nts Leukocytes (test code = Leukocytes) Negative Nitrite (test code = Nitrite) negative Urobilinogen (test code = Urobilinogen) Normal Protein (test code = Protein) Negative pH (test code = pH) 6.0 Blood (test code = Blood) Negative Specific [place] (test code = Specific [place]) 1.015 Ketone (test code = Ketone) Negative Bilirubin (test code = Bilirubin) Negative Glucose (test code = Glucose) Negative Appearance (test code = Appearance) Slightly Cloudy Color (test code = Color) Yellow [facility] Medicalmeasurement of post-voiding residual urine and/or bladder capacity (PROC)2025-04-23 15:11:00* Test Item Value Reference Range Interpretation Comme nts (PVR) (test code = (PVR)) 15 [facility] GoewjayFRVMFW7351-95-57 11:14:00* Test Item Value Reference Range Interpretation Comme nts GLUBED (test code = GLUBED) 176 mg/dL 70-105 H Performed by cer tified bullard operator at [facility] COMPREHENSIVE METABOLIC [id number] 09:17:00* Test Item Value Reference Range Interpretation [...] ALKP) 73 U/L 50-136 N CBC W/AUTO [id number] 09:01:00* Test Item Value Reference Range Interpretation [...] (shoaib t code = RBCM) NO NORMAL [id number] 05:34:00* Test Item Value Reference Range Interpretation Comme nts GLUBED (test code = GLUBED) 148 mg/dL 70-105 H Performed by cer tified bullard operator at [facility] [id number] 00:08:00* Test Item Value Reference Range Interpretation Comme nts GLUBED (test code = GLUBED) 119 mg/dL 70-105 H Performed by cer tified bullard operator at [facility] COMPREHENSIVE METABOLIC [id number] 12:30:00* Test Item Value Reference Range Interpretation [...] code = ALKP) 57 U/L 50-136 N [id number] 12:30:00* Test Item Value Reference Range Interpretation Comme nts GLYCOSYLATED HEMOGLOBIN (HA1C) (test code = GLYHGB) 5.8 % <5.7 H SUGGESTED D IAGNOSIS INTERPRETATION Normal: <5.7% Prediabetes: 5.7 - 6.4% Diabetic: >/= 6.5%* DUE TO METHOD REVISION, REFERENCE RANGE HAS BEEN UPDATED * ESTIMATED AVERAGE GLUCOSE (test code = EAG) 120 MG/DL <126 CBC W/AUTO [id number] 05:49:00* Test Item Value Reference Range Interpretation [...] code = RBCM) NO NORMAL ARTERIAL BLOOD [id number] 17:37:00* Test Item Value Reference Range Interpretation [...] FIO2A) 21.00 % PaO2/FiO2 (test code = NXR9YOX3) 360.00 mm/Hg ABG VENT MODE (test code [...] METHGB) 1.10 % 0.0-3.0 N COMPREHENSIVE METABOLIC [id number] 17:33:00* Test Item Value Reference Range Interpretation [...] = ALKP) 70 U/L 50-136 N LACTIC [id number] 17:16:00* Test Item Value Reference Range Interpretation Comme nts LACTIC ACID (test code = LACT) 1.8 mmol/l 0.4-2.0 N LACTIC [id number] 16:20:00* Test Item Value Reference Range Interpretation Comme nts LACTIC ACID (test code = LACT) 2.5 mmol/l 0.4-2.0 H UA RFLX MICROSCOPIC [id number] 15:54:00* Test Item Value Reference Range Interpretation [...] Dysuria/FrequencyURINE SOURCE: CLEAN CATCH URINE COMPREHENSIVE METABOLIC [id number] 15:25:00* Test Item Value Reference Range Interpretation [...] code = ALKP) 73 U/L 50-136 N [id number] 15:25:00* Test Item Value Reference Range Interpretation [...] - 78 : >78 --------- CBC W/AUTO [id number] 15:05:00* Test Item Value Reference Range Interpretation [...] t code = RBCM) NO NORMAL urinalysis, [id number] 12:40:14* Test Item Value Reference Range Interpretation Comme nts Leukocytes (test code = Leukocytes) 1+ Nitrite (test code = Nitrite) negative Urobilinogen (test code = Urobilinogen) Normal Protein (test code = Protein) 2+ pH (test code = pH) 6.0 Blood (test code = Blood) Non-Hemolyzed: Trace Specific [place] (test code = Specific [place]) 1.010 Ketone (test code = Ketone) Negative Bilirubin (test code = Bilirubin) Negative Glucose (test code = Glucose) Negative Appearance (test code = Appearance) Clear Color (test code = Color) Yellow [facility], [id number] 15:24:55* Test Item Value Reference Range Interpretation Comme nts Leukocytes (test code = Leukocytes) Negative Nitrite (test code = Nitrite) negative Urobilinogen (test code = Urobilinogen) Normal Protein (test code = Protein) 1+ pH (test code = pH) 6.5 Blood (test code = Blood) Non-Hemolyzed: Trace Specific [place] (test code = Specific [place]) 1.010 Ketone (test code = Ketone) Negative Bilirubin (test code = Bilirubin) Negative Glucose (test code = Glucose) Negative Appearance (test code = Appearance) Clear Color (test code = Color) Yellow [facility] MedicalBacteria identified in Urine by [id number] 00:00:00* Test Item Value Reference Range Interpretation Comme nts culture, urine (test code = culture, urine) SEE BELOW no growth A [facility] MedicalUrinalysis complete W Reflex Culture panel - [id number] 00:00:00* Test Item Value Reference Range Interpretation [...] code = WBC, urine) >100 0-5 H [facility] Medicalurinalysis, [id number] 13:29:00* Test Item Value Reference Range Interpretation Comme nts Leukocytes (test code = Leukocytes) 2+ Nitrite (test code = Nitrite) negative Urobilinogen (test code = Urobilinogen) Normal Protein (test code = Protein) 1+ pH (test code = pH) 6.0 Blood (test code = Blood) Non-Hemolyzed: Moderate Specific [place] (test code = Specific [place]) 1.015 Ketone (test code = Ketone) Negative Bilirubin (test code = Bilirubin) Negative Glucose (test code = Glucose) Negative Appearance (test code = Appearance) Clear Color (test code = Color) Yellow [facility] MedicalGLUCOSE BEDSIDE [id number] 07:37:00* Test Item Value Reference Range Interpretation Comme nts GLUCOSE BEDSIDE TESTING (shoaib t code = GLUBED) 110 mg/dL 70-110 N CBC W/AUTO [id number] 05:14:00* Test Item Value Reference Range Interpretation [...] c ode = MDIFF) NO DIFF/SCN CRITERIA [id number] 05:12:00* Test Item Value Reference Range Interpretation Comme nts MAGNESIUM (test code = MAG) 1.9 MG/DL 1.8-2.4 N Comment: my orderGLUCOSE BEDSIDE [id number] 16:18:00* Test Item Value Reference Range Interpretation Comme nts GLUCOSE BEDSIDE TESTING (shoaib t code = GLUBED) 230 mg/dL 70-110 H GLUCOSE BEDSIDE [id number] 15:39:00* Test Item Value Reference Range Interpretation Comme nts GLUCOSE BEDSIDE TESTING (shoaib t code = GLUBED) 172 mg/dL 70-110 H GLUCOSE BEDSIDE [id number] 12:15:00* Test Item Value Reference Range Interpretation Comme nts GLUCOSE BEDSIDE TESTING (shoaib t code = GLUBED) 166 mg/dL 70-110 H - XR CHEST 1 [id number] 14:39:00 [facility] 1940 Sex: FName: MAN,MADISON [facility] : 1940 Age/S: 82 / F [address] [address] Unit #: [id number] Loc: [place] [address] Phys: Tha Mc MD Acct: [id number] Dis Date: Status: PRE [facility] PHONE #: [phone] Exam Date: 05/23/20231420 FAX #: Reason: PRE OP EXAMS: CPT: [id number] XR CHEST 1V 48808 Fluoro Time: DAP (Gy m2): Air Kerma [...] PAGE 1 Signed Report Name: MADISON MAN Russell : 1940 Age/S: 82 / F [address] [facility] Unit #: [id number] Loc: [place] [address] Phys: Tha Mc MD Acct: [id number] Dis Date: Status: PRE [facility] PHONE #: [phone] Exam Date: 05/23/20231420 FAX #: Reason: PRE OP EXAMS: CPT: [id number] XR CHEST 1 V 37471 Fluoro Time: DAP (Gy m2): Air Kerma (mGy): (Continued) Technologist: Fatimah Spear Trnscb Date/Time: 05/23/2023 (1439) [email or web address] Orig Print D/T: S: 05/23/20 (9193) PAGE 2 Signed ReportPROTHROMBIN [id number] 14:03:00* Test Item Value Reference Range Interpretation [...] Infarction (to prevent recurrent infarct). THROMBOPLASTIN TIME [id number] 14:03:00* Test Item Value Reference Range Interpretation [facility] THROMBOPLASTIN TIME PARTIAL (test code = PTT) 34.0 SECONDS 26-35 N URINALYSIS [id number] 13:52:00* Test Item Value Reference Range Interpretation [facility] UA GLUCOSE DIPSTICK (test code = DGLUU) [...] A Urine Specimen Type: Clean CatchBASIC METABOLIC [id number] 13:52:00* Test Item Value Reference Range Interpretation [facility] SODIUM (test code = NA) 133 mmol/L [...] CA) 8.4 MG/DL 8.5-10.1 L CBC W/AUTO [id number] 13:38:00* Test Item Value Reference Range Interpretation [...] c ode = MDIFF) NO DIFF/SCN CRITERIA [id number] 15:01:00* Test Item Value Reference Range Interpretation Comme nts SURGICAL (test code = SR) -----RUN DATE: 07/25/22 [facility] PAGE 1 RUN TIME: 1501 Specimen Inquiry RUN USER: INTERFACE -----PATIENT: MADISON MAN LOC: JORJE #: [id number] AGE/SX: 81/F ROOM: [facility] RE07/23/22REG DR: Rusty Angeles : 38 BED: 1 DIS: 07/24/22 STATUS: DIS IN TLOC: ----- SPEC #: [id number] RECD: 07/23/22 STATUS: DOTTIE FROYLAN #: [id number] DIEGO: 07/23/22- SUBM DR: Rusty Angeles MD ENTERED: 07/23/22 SP TYPE: SURGICAL OTHR DR: Vikram Orr MD, Anas MDORDERED: 14894, 26969, ANATOMIC SPEC COPIES TO: Rusty Angeles MD [address] [facility] [place] [address] Vikram Orr MD [address] [place] [address] [id number] Kimber Bobby MD [address] [id number] PROCEDURES: 09501 (07/25/22-145) 43319 (07/23/22) TISSUES: A. CAROTID PLAQUE WITH DECAL - RIGHT FINAL DIAGNOSIS Right carotid plaque, excision:Plaque tissue with calcification and degenerative changes. GROSS DESCRIPTION The specimen received in formalin in a container labeled with the patient's name anddesignated right carotid plaque consists of multiple fragments of soft tissue which inaggregate measures 2.2 cm in greatest dimension. [place] Support Worker sections are submitted in1 cassette after decalcification. Technical component performed at [facility],[address] [place] [address], [place] [address] Unless gross only, the diagnosis is based upon microscopic examination.Immunohistochemis try: This test was developed and its performance characteristics CONTINUED ON NEXT PAGE -----RUN DATE: 07/25/22 [facility] - LAB PAGE 2 RUN TIME: 1501 Specimen Inquiry RUN USER: INTERFACE -----SPEC #: [id number] PATIENT: BRITTANY MANA #[id number] (Continued) GROSS DESCRIPTION (Continued) determined by this [...] 1501 ----- END OF REPORT BASIC METABOLIC [id number] 13:53:00* Test Item Value Reference Range Interpretation [...] = CA) 8.1 mg/dL 8.0-10.5 N GLUCOSE [id number] 12:13:00* Test Item Value Reference Range Interpretation Comme nts GLUCOSE BEDSIDE (test code = GLUBED) 155 MG/DL 70-110 H Performed by cer tified bullard operator at [facility] HGBA1C%2022-07-24 04:44:00* Test Item Value Reference Range Interpretation Comme nts HGBA1C% (test code = HGBA1C%) 5.5 %A1C 4.8-6.0 N BASIC METABOLIC [id number] 04:32:00* Test Item Value Reference Range Interpretation [...] code = CA) 8.3 mg/dL 8.0-10.5 N [id number] 04:32:00* Test Item Value Reference Range Interpretation Comme nts PHOSPHOROUS (test code = PHOS) 4.2 MG/DL 2.5-4.9 N [id number] 04:32:00* Test Item Value Reference Range Interpretation Comme nts MAGNESIUM (test code = MAG) 1.46 mg/dL 1.80-2.40 L CALCIUM [id number] 04:32:00* Test Item Value Reference Range Interpretation Comme nts CALCIUM IONIZED (test code = ARIANA) 1.11 MMOL/L 1.09-1.30 N CBC W/AUTO [id number] 04:22:00* Test Item Value Reference Range Interpretation [...] = MDIFF) NO - XR CHEST 1 [id number] 00:00:00 [facility] : 1940 Sex: F FAX: Riccardo Kendall [place]: St: [facility] FAX: Rusty Portillo [phone] Name: MADISON MAN [facility] : 1940 Age/S: 81/F [address] [place] [address] Unit #: [id number] Loc: [address] [place] [address] Phys: Riccardo Kendall APRNNP Acct: [id number] Dis Date: Status: ADM IN PHONE #: [phone] Exam Date: 07/24/2022619 FAX #: [phone] Reason: Post op EXAMS: CPT CODE: [id number] XR CHEST 1 V 95943 PROCEDURE INFORMATION: Exam: XR Chest Exam date [...] Riccardo Kendall; Rusty Angeles MD Technologist: RT Gael(R) Trnscrd Date/Time/By: 07/24/2022 (826) : By: [email or web address] Orig Print D/T: S: 07/24/2022 (826) PAGE 1 Signed ReportGLUCOSE [id number] 20:16:00* Test Item Value Reference Range Interpretation Comme [facility] GLUCOSE BEDSIDE (test code = GLUBED) 186 MG/DL 70-110 H Performed by cer tified bullard operator at [facility] GLUCOSE [id number] 11:56:00* Test Item Value Reference Range Interpretation Comme [facility] GLUCOSE BEDSIDE (test code = GLUBED) 149 MG/DL 70-110 H Performed by cer tified bullard operator at [facility] BASIC METABOLIC [id number] 11:50:00* Test Item Value Reference Range Interpretation Comme [facility] SODIUM (test code = NA) 139 mEq/L [...] = CA) 8.7 mg/dL 8.0-10.5 N HGB [id number] 11:26:00* Test Item Value Reference Range Interpretation Comme nts HEMOGLOBIN (test code = HGB) 10.9 g/dL 11.0-15.0 L HEMATOCRIT (test code = HCT) 31.7 % 33.0-45.0 L GLUCOSE [id number] 09:08:00* Test Item Value Reference Range Interpretation Comme nts GLUCOSE BEDSIDE (test code = GLUBED) 145 MG/DL 70-110 H Performed by cer tified bullard operator at [facility] [id number] 07:58:00* Test Item Value Reference Range Interpretation Comme nts ACT-ISTAT (test code = ACTI) 312 SEC 74-137 H Performed by cer tified bullard operator at [facility] UA RFLX MICR CULT IF [id number] 14:59:00* Test Item Value Reference Range Interpretation [...] srcSpecimen Description: CLEAN CATCHCOVID 19 Asymptomatic IH [id number] 14:53:00* Test Item Value Reference Range Interpretation [...] HGBA1C%) 5.6 %A1C 4.8-6.0 N COMPREHENSIVE METABOLIC [id number] 14:38:00* Test Item Value Reference Range Interpretation [...] = ALKP) 69 IUnit/L 20-125 N PROTHROMBIN [id number] 14:34:00* Test Item Value Reference Range Interpretation [...] Infarction (to prevent recurrent infarct). THROMBOPLASTIN TIME [id number] 14:34:00* Test Item Value Reference Range Interpretation Comme nts THROMBOPLASTIN TIME PARTIAL (test code = PTT) 29.3 Seconds 25.0-39.5 N Therapeutic Rang e: 50.4 - 88.3 Seconds Effective 03/17/2019 CBC W/AUTO [id number] 14:26:00* Test Item Value Reference Range Interpretation [...] = MDIFF) NO - XR CHEST 2 [id number] 00:00:00 [facility] 1940 Sex: F FAX: Rusty Portillo [phone] [place]: St: PRE Name: MADISON MAN [facility] : 1940 Age/S: 81/F [address] [place] [address] Unit #: [id number] Loc: [place] [address] Phys: Rusty Angeles MD Acct: [id number] Dis Date: Status: PRE [facility] PHONE #: [phone] Exam Date: 07/20/2022 [facility]9 FAX #: [phone] Reason: PREOP EXAMS: CPT CODE: [id number] XR CHEST 2 V 47893 PROCEDURE INFORMATION: Exam: XR Chest Exam date [...] Thoracic spurring. IMPRESSION: No acute findings. at 6164 Reported and signed by: Dean Arriaga M.D. CC: Rusty Angeles MD Technologist: RT Alok(R) Trnscrd Date/Time/By: 07/20/2022 (5965) : By: [email or web address] Orig Print D/T: S: 07/20/2022 (6322) PAGE 1 Signed Report Consult Notes Date/Time Note Provider Source 2025-08-29 02:38:05 Neurocritical Care Consultation Note Consulted by NSGY for medical mgmt of TBI History Of Present Illness Madison Man, 84 y.o. female with PMH of prior stroke, DM II, HTN, CKD, CHF and dementia, who presented from OSH on 08/28/25 s/p witnessed mechanical GLF fall on concrete with head strike and LOC while not on AC/AP. Her CTH was remarkable for right inferior temporal IPH, b/l tentorial SDH, right frontal SAH and small lateral ventricle hemorrhage. Neurosurgery was consulted to ED to evaluate the patient. Surgical intervention was not indicated so she was admitted to NIMU for close neurological observation and medical management. Interval Events: 08/29: Admit to NIMU Past Medical History has no past medical history on file. Surgical History has no past surgical history on file. Family History No family history on file. Social History Allergies Codeine Home Medications (Not in a hospital admission) Review of Systems ROS all negative except those noted in HPI Physical Exam Further clinical exam documented under Impression and Plan by systems. ASSESSMENT AND PLAN Madison Man, 84 y.o. female with PMH of prior stroke, DM II, HTN, CKD, CHF and dementia, who presented from OSH on 08/28/2025 s/p GLF fall on concrete with head strike LOC while not on AC/AP with CTH positive for multi-compartmental IPH and small lateral ventricular IVH. NEUROLOGIC Left tentorial SDH Right tentorial SDH Right frontal SAH Lateral ventricle IVH Brain contusion Prior Stroke Dementia Neuro Exam: GCS: E4 Eyes open spontaneously, V5 Speech oriented, M6 Follows commands MS: AAO x3, following commands, speech fluent, no dysarthria CN: L pupil 3, R pupil 3, EOMI, face symmetric Motor: No drift, 5/5 strength throughout Sensory: intact to light touch throughout initial CTH revealed 0.7 x 1.3 x 1.1 cm R temporal lobe CTX w edema, 0.3 cm Left tentorium cerebelli SDH, thin R tentorium SDH, L temporal convexity SDH, punctate foci of IVH Rpt CTH stable, pending rad read No NSGY indicated No coagulopathy on labs or per history Maintain SBP < 150 to prevent rebleed Observe in NIMU for clinical signs of worsening hemorrhage S/p Keppra 1gm load; continue 500mg q12h x7d for sz ppx; currently on Day 0 Home meds: Trazodone 100 mg daily, hold Sertraline 25 mg daily, hold Risperidone 1 mg daily, hold Pregabalin 150 mg daily, hold PT/OT/DIGITAL PROGRAM MANAGER as indicated CARDIOVASCULAR Essential hypertension on admission CHF Hypertensive urgency CV Exam: RRR Temp: [36.7 ?C (98.1 ?F)] 36.7 ?C (98.1 ?F) Heart Rate: [75-98] 81 Resp: [10-26] 19 BP: (131-161)/(56-116) 148/65 VS Parameters: SBP 100-150 PRN hydralazine, labetalol Cardene gtt @ 5, wean as tolerated Home meds: Hydralazine 25 mg daily, continue Isosorbide mononitrate 60 mg daily, resumed Losartan potassium 50 mg daily, hold for CKD vs DARIUS Metoprolol 25 mg daily, continued EKG: SR, RBBB, VR 90, QTC 530 PULMONARY Pulm Exam: CTAB on room air w/ spO2>94% Home meds: Fluticasone 50 mcg daily, restart Ipratropium spray 0.06% BID, restart GASTROINTESTINAL Morbid obesity (BMI>40 or/> 35 and has HTN +/ DM) on admission GI Exam: soft, non-distended, present bowl sounds Nutrition: Current Order: Adult Diet Regular bowel regimen: docusate, senna, VT ducolax last BM [employer] Home med: Famotidine 20 mg daily, continued Lab Results Component Value Date ALT 7 08/29/2025 AST 16 08/29/2025 Alkaline Phosphatase 78 08/29/2025 Bilirubin Total 0.30 08/29/2025 RENAL CKD unspecified on admission Intake/Output Summary (Last 24 hours) at 08/29/2025 1700 Last data filed at 08/28/2025 2150 Gross per 24 hour Intake 0 ml Output -- Net 0 ml Urine Output: 0mL in 24hrs mL/kg/hr (last 24hrs) Results from last 7 days Lab Units 08/29/25 0644 08/29/25 0016 SODIUM mEq/L 142 141 POTASSIUM mEq/L 3.9 3.9 CHLORIDE mEq/L 111* 108* CO2 mEq/L 21.6 21.3 BUN mg/dL 19 22 CREATININE mg/dL 1.20* 1.26* CALCIUM mg/dL 8.5 8.4 NS 50 ml/hr while NPO no bolden CKD; Cr 1-1.25 per chart review Furosemide 20 mg daily, held INFECTIOUS DISEASE Temp (24hrs), Av.7 ?C (98.1 ?F), Min:36.7 ?C (98.1 ?F), Max:36.7 ?C (98.1 ?F) Results from last 7 days Lab Units 08/29/25 0644 08/29/25 0016 WBC 10*3/uL 5.25 6.18 Monitor trend fever curve and WBC no ABX indicated HEMATOLOGIC Anemia in CKD on admission Thrombocytopenia Hx of breast cancer Results from last 7 days Lab Units 08/29/25 0644 08/29/25 0016 HEMOGLOBIN g/dL 9.5* 9.9* PLATELETS 10*3/uL 188* 177* INR 1.12 -- PTT Seconds 31.1 -- TEG: WNL No coagulopathy on labs or per history DVT ppx: SCDs; hold sc heparin Home meds: Anastrazole 1 mg daily, hold ENDOCRINE Hyperlipidemia unspecified on admission, 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) on admission Results from last 7 days Lab Units 08/29/25 1341 08/29/25 0644 08/29/25 0016 POC GLUCOSE mg/dL 187* -- -- GLUCOSE mg/dL -- 196* 182* BG goal 80-180 medium-dose regular ISS Atorvastatin 20 mg, continued MUSCULOSKELETAL AND INTEGUMENTARY Osteoporosis Skin Exam: warm, dry, intact PT/OT evaluation pending Home med: Ibandronate 150 mg daily, hold Code Status: Full Code Dispo: pending evals, transfer to IMU The patient has an illness or injury that has acutely impaired one or more vital organ systems. There is a high probability of imminent or life threatening deterioration in the patient's condition during this evaluation. This is the total time spent evaluating the patient, speaking with medical staff and family, interpreting studies, discussing the case with consultants and admitting teams, retrieving data and reviewing charts, documenting the visit, and performing bundled procedures required during patient management. TIME (IN MINUTES) SPENT 30 Day MD Day IVETT - () 30 Day Total TIME (IN MINUTES) SPENT Night MD Night IVETT - () Night Total TOTAL OF TIME (IN MINUTES) SPENT [facility] White Team IMU/Floor IVETT Ph #[phone] (available 24/06), #[phone] (available 6:30a - 4:30p) [facility] Neuro ICU White Team Ph #[id number] [facility] History and Physical Notes Date/Time Note Provider Source 2025-08-29 01:47:07 NEUROSURGERY H&P Date: 08/29/25 Patients Name: Madison Man Admit Date: 08/28/2025 Admitting Provider: Enrrique Matamoros MD;Yoshu* : 1940 Service: Neurosurgery Trauma Team Age/Sex: 84 y.o. female CHIEF COMPLAINT: - Chief Complaint: Fall - Consult Time: 99 - Evaluation Time: 109 HISTORY AND PHYSICAL: Madison Man is an 84-year-old female who is presenting after a witnessed fall with a positive LOC. CT head demonstrates a small right temporal contusion and left tentorial subdural hematoma. She has a past medical history of dementia, CHF, CVA, hypertension, CKD. She/family denies any use of anticoagulation or antiplatelet medications at home. REVIEW OF SYSTEMS: Negative except per HPI MEDICAL HISTORY: PAST MEDICAL HISTORY: No past medical history on file. PAST SURGICAL HISTORY: No past surgical history on file. PRE-ADMISSION MEDICATIONS: (Not in a hospital admission) ALLERGIES: Allergies Allergen Reactions Codeine SOCIAL HISTORY: FAMILY HISTORY: Family history is non-contributory to current disease process No family history on file. VITAL SIGNS: Vitals: 08/28/25 2118 08/28/25 2210 08/28/25 2220 08/28/25 2300 BP: 147/74 153/68 149/67 151/65 Pulse: 98 92 92 92 Resp: 18 17 18 19 Temp: 36.7 ?C (98.1 ?F) SpO2: 98% 96% 97% 95% PHYSICAL EXAM: Eyes open spontaneously Pupils 3 mm and reactive bilaterally Awake and oriented x 3 Full strength in bilateral upper extremities Antigravity in bilateral lower extremities LABS: Results from last 7 days Lab Units 08/29/25 0016 WBC 10*3/uL 6.18 HEMOGLOBIN g/dL 9.9* HEMATOCRIT % 31.1* PLATELETS 10*3/uL 177* LYMPHOCYTES % 9.4* MONOCYTES % 3.4* Results from last 7 days Lab Units 08/29/25 0016 SODIUM mEq/L 141 POTASSIUM mEq/L 3.9 CHLORIDE mEq/L 108* CO2 mEq/L 21.3 BUN mg/dL 22 CREATININE mg/dL 1.26* CALCIUM mg/dL 8.4 GLUCOSE mg/dL 182* No results found for: "PT", "INR", "PTT" Activated Clotting Time (TEG) Rapid Date Value Ref Range Status 08/29/2025 89 86 - 118 sec Final IMAGING: Trauma CT BRAIN WO IV CONTRAST NEURO ASSESSMENT/PLAN: Active Problems: Patient Active Problem List Diagnosis Subdural hematoma (CMS/HCC) Assessment/Plan Madison Man is an 84-year-old female who is presenting after a witnessed fall with a positive LOC. CT head demonstrates a small right temporal contusion and left tentorial subdural hematoma. She has a past medical history of dementia, CHF, CVA, hypertension, CKD. She/family denies any use of anticoagulation or antiplatelet medications at home. Impression - small right temporal contusion and left tentorial subdural hematoma Plan - No acute neurosurgical intervention - Admit to IMU; on cardene gtt - Repeat CT head pending final read, appears largely stable - White team updated with admission and plan by NSGY - TEG WNL - Keppra 1000mg load and then 500mg BID x7days for seizure ppx - Maintain SBP<150 to lower risk of rebleed - We will continue to monitor neurologic exam Please call [phone] with NSGY questions or concerns I saw and evaluated the patient, participating in the vargas portions of the service. I reviewed the resident's note. I agree with the resident's findings and plan. MD Oliver Teixeira MD Neurosurgery PGY-2 [facility] Neurosurgery Neurosurgery Physician Dorene Valderrama Notes Date/Time Note Provider Source Referral ID Status Reason Start Date Expiration Date Visits Re quested Visits Authorized [id number] 1 1 Dorene [id number] 12:32:11* Over the past 2 weeks, how often have you been bothered by any of the following problems? Question Answer Date of Assessment Author Little interest or pleasure in doing things Not at all 09/02/2025 2:00 AM CDT Odalis Suarez RN Feeling down, depressed, or hopeless Not at all 09/02/2025 2:00 AM CDT Odalis Suarez, NAN Patient Health Questionnaire -2 Score 0 09/02/2025 2:00 AM CDT Odalis Suarez, NAN * In the past month, have you... Question Answer Date of Assessment Author Had nightmares about the renea nts or thought about the events when you did not want to? No 09/02/2025 2:00 AM CDT Odalis Suarez RN Tried hard not to think abou t the events or went out of your way to avoid situations that reminded you of the events? No 09/02/2025 2:00 AM CDT Odalis Suarez RN Been constantly on guard, wa tchful, or easily startled? No 09/02/2025 2:00 AM CDT Odalis Suarez RN Warren numb or detached from p eople, activities, or your surroundings? No 09/02/2025 2:00 AM CDT Odalis Vallejo RN [place] guilty or unable to sto p blaming yourself or others for the events or any problems the events may have caused? No 09/02/2025 2:00 AM CDT Odalis uSarez RN * Primary Care PTSD Score Question Answer Date of Assessment Author Primary Care PTSD Total Score 1 09/02/2025 2:00 AM CDT Odalis Suarez RN [id number] 12:32:11* Bessie Layton MD - 09/03/2025 10:51 AM CDT [facility] Query Clarification Progress Note As related to the inpatient hospital stay starting on 08/30/2025, 3:59 PM. I have reviewed the patient’s medical record and the following accurately represents the patient’s current condition. PROVIDER RESPONSE TEXT: Pulmonary Hypertension Query Created By : Latanya Fajardo, 09/02/2025, 1:32 PM * Bessie Layton MD - 09/03/2025 1:01 AM CDT [facility] Query Clarification Progress Note As related to the inpatient hospital stay starting on 08/30/2025, 3:59 PM. Would you please document clinical indicators supporting the documented diagnosis of thrombocytopenia? PROVIDER RESPONSE TEXT: Thrombocytopenia ruled out after furthery study Query Created By : Latanya Fajardo, 09/02/2025, 12:44 PM * Bessie Layton MD - 09/02/2025 8:05 PM CDT [facility] Query Clarification Progress Note As related to the inpatient hospital stay starting on 08/30/2025, 3:59 PM. I have reviewed the patient’s medical record and the following accurately represents the patient’s current condition. PROVIDER RESPONSE TEXT: Patient has traumatic brain edema Query Created By : Latanya Fajardo, 09/02/2025, 1:06 PM * Bessie Layton MD - 09/02/2025 8:05 PM CDT [facility] Query Clarification Progress Note As related to the inpatient hospital stay starting on 08/30/2025, 3:59 PM. The medical record reflects the diagnosis of heart failure. In your medical opinion, can you further specify the acuity & type of CHF noted in the medical record? PROVIDER RESPONSE TEXT: Chronic diastolic heart failure Query Created By : Latanya Fajardo, 09/02/2025, 12:56 PM * Bessie Layton MD - 09/02/2025 11:22 AM CDT Neurocritical Care Progress Note Consulted by NSGY for medical mgmt of TBI History Of Present Illness Madison Man, 84 y.o. female with PMH of prior stroke, DM II, HTN, CKD, CHF and dementia, who presented from OSH on 08/28/25 s/p witnessed mechanical GLF fall on concrete with head strike and LOC while not on AC/AP. Her CTH was remarkable for right inferior temporal IPH, b/l tentorial SDH, right frontal SAH and small lateral ventricle hemorrhage. Neurosurgery was consulted to ED to evaluate the patient. Surgical intervention was not indicated so she was admitted to NIMU for close neurological observation and medical management. Interval Events: 08/29: Admit to NIMU 08/30: Neuro stable, some confusion, no overnight events 08/31: Reporting headache this AM, CTH with hypodensity of the R post inf cerebellum, MRI ordered. Severe HTN 09/01: Continue adjusting BP meds, neuro stable, alert, pain controlled, MRI positive for acute stroke, complete stroke workup 09/02: Elevated pressures overnight, improved today. Cr downtrending, pending TTE. ASSESSMENT AND PLAN Madison Man, 84 y.o. female with PMH of prior stroke, DM II, HTN, CKD, CHF and dementia, who presented from OSH on 08/28/2025 s/p GLF fall on concrete with head strike LOC while not on AC/AP with CTH positive for multi-compartmental IPH and small lateral ventricular IVH. NEUROLOGIC Left tentorial SDH Right tentorial SDH Right frontal SAH Lateral ventricle IVH Brain contusion Prior Stroke Dementia Acute cerebellar stroke Neuro Exam: GCS: E4 Eyes open spontaneously, V5 Speech oriented, M6 Follows commands MS: AAO x3, following commands, speech fluent CN: L pupil 3, R pupil 3, EOMI, face symmetric, hard of hearing Motor: No drift, 5/5 strength throughout Sensory: intact to light touch throughout Gait steady with assistive device initial CTH revealed 0.7 x 1.3 x 1.1 cm R temporal lobe CTX w edema, 0.3 cm Left tentorium cerebelli SDH, thin R tentorium SDH, L temporal convexity SDH, punctate foci of IVH Rpt CTH stable, pending rad read 08/31: CTH for increased headache, dizziness 08/31: MRI ordered for hypodensity found on CTH with small acute infarct to posterior inferior R cerebellum with assoc petechial hemorrhage. Stroke etiology: possibly related to the trauma itself versus ESUS MRA brain unremarkable, limited imaging of carotid bifucations but no clear stenosis or occlusions Plan to start aspirin 1 week post injury for secondary stroke prevention ~09/08 Stroke workup: LDL 43, Hgb A1c 5.88, TTE done, Holter on discharge On atorvastatin 40mg daily S/p Keppra 1gm load; continue 500mg q12h x7d for sz ppx; currently on Day 3 Home meds: Trazodone 100 mg daily, resume Sertraline 25 mg daily, resume Risperidone 1 mg daily, resume Pregabalin 150 mg daily, resume PT/OT/DIGITAL PROGRAM MANAGER as indicated CARDIOVASCULAR Essential hypertension on admission CHF Hypertensive urgency CV Exam: RRR Temp: [36.6 ?C (97.8 ?F)-37.1 ?C (98.7 ?F)] 36.6 ?C (97.8 ?F) Heart Rate: [63-78] 64 Resp: [13-33] 19 BP: (120-181)/(58-77) 134/61 VS Parameters: SBP 100-150, improved control PRN hydralazine, labetalol S/p cardene Home meds: Hydralazine 25 mg tid, resumed as 50mg tid; increase to 100mg tid (09/01) Isosorbide mononitrate 60 mg daily, resumed Losartan potassium 50 mg daily; hold due to Cr increase Metoprolol 25 mg daily, continued, hold for HR <60 Added nifedipine xr 60mg daily (09/01) ECHO for stroke workup showed EF 55-60%, Gr II DD. pHTN, Mild Family has outpatient cardiology appointment set up for next week EKG: SR, RBBB, VR 90, QTC 530 (monitor QTC on home antipsychotics) No asif, no central line PULMONARY Pulm Exam: CTAB on room air w/ spO2>94% Home meds: Fluticasone 50 mcg daily, restart Ipratropium spray 0.06% BID, restart GASTROINTESTINAL Morbid obesity (BMI>40 or/> 35 and has HTN +/ DM) on admission GI Exam: soft, non-distended, present bowl sounds Nutrition: Current Order: Adult Diet Regular bowel regimen: docusate, senna, VT ducolax last BM 09/01 Home med: Famotidine 20 mg daily, continued Lab Results Component Value Date ALT 7 08/29/2025 AST 16 08/29/2025 Alkaline Phosphatase 78 08/29/2025 Bilirubin Total 0.30 08/29/2025 RENAL CKD unspecified on admission DARIUS Intake/Output Summary (Last 24 hours) at 09/02/2025 1122 Last data filed at 09/02/2025 0000 Gross per 24 hour Intake -- Output 1 ml Net -1 ml Urine Output: 0mL in 24hrs mL/kg/hr (last 24hrs) Results from last 7 days Lab Units 09/02/25 0007 09/01/25 1249 09/01/25 0529 08/31/25 0512 08/30/25 0546 SODIUM mEq/L 142 146* 147* < > 148* POTASSIUM mEq/L 3.3* 3.8 3.7 < > 3.5 CHLORIDE mEq/L 108* 111* 113* < > 113* CO2 mEq/L 21.5 22.7 21.9 < > 22.3 BUN mg/dL 13 15 14 < > 19 CREATININE mg/dL 1.34* 1.47* 1.48* < > 1.10* MAGNESIUM mg/dL -- -- 1.75 -- 1.76 PHOSPHORUS mg/dL -- -- 3.9 -- 2.5 CALCIUM mg/dL 8.2* 7.9* 8.3 < > 8.5 < > = values in this interval not displayed. Suspect DARIUS on CKD; baseline Cr 1-1.25 per chart review stopped losartan, given 1L bolus 09/01 Cr downtrending now K 3.3, replace Furosemide 20 mg daily, held for now No Bolden No IVF INFECTIOUS DISEASE UTI Temp (24hrs), Av.7 ?C (98.1 ?F), Min:36.6 ?C (97.8 ?F), Max:37.1 ?C (98.7 ?F) Results from last 7 days Lab Units 09/02/25609/01/2552808/31/25 0512 WBC 10*3/uL 8.15 7.27 10.23 Monitor trend fever curve and WBC UCX with Klebsiella; started Bactrim DS on (08/30- EOT 09/04) Afebrile, no leukocytosis, continue Bactrim for UTI HEMATOLOGIC Anemia in CKD on admission Thrombocytopenia Hx of breast cancer Results from last 7 days Lab Units 09/02/25609/01/2552808/31/25 0512 08/30/25 0546 08/29/25 0644 HEMOGLOBIN g/dL 9.5* 9.5* 9.2* < > 9.5* PLATELETS 10*3/uL 208 195 203 < > 188* INR -- -- -- -- 1.12 PTT Seconds -- -- -- -- 31.1 < > = values in this interval not displayed. TEG: WNL No coagulopathy on labs or per history Plan for aspirin 81 mg on 09/08 DVT ppx: SCDs; SQH Home meds: Anastrazole 1 mg daily, hold ENDOCRINE Hyperlipidemia unspecified on admission, 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) on admission Results from last 7 days Lab Units 09/02/25 1046 09/02/25 0837 09/02/25 0007 09/01/25 1249 09/01/25 0529 POC GLUCOSE mg/dL 163* 129* -- < > -- GLUCOSE mg/dL -- -- 118* < > 118* HEMOGLOBIN A1C % -- -- -- -- 5.88* CHOLESTEROL mg/dL -- -- -- -- 106 TRIGLYCERIDES mg/dL -- -- -- -- 114 HDL CHOLESTEROL mg/dL -- -- -- -- 40.4 LDL CALC mg/dL -- -- -- -- 43 < > = values in this interval not displayed. BG goal 80-180 medium-dose regular ISS Atorvastatin 40 mg, continued LDL 43 A1c 5.88 MUSCULOSKELETAL AND INTEGUMENTARY Osteoporosis Skin Exam: warm, dry, intact PT/OT evaluation pending Home med: Ibandronate 150 mg daily, hold Code Status: Full Code Dispo: once medically clear then home with home health [facility] White Team IMU/Floor IVETT Ph #[phone] (available 24/06), #[phone] (available 6:30a - 4:30p) [facility] Neuro ICU White Team Ph #[phone] The patient was seen and examined by me at a separate time from the IVETT/Fellow/resident. I also reviewed the documentation and agree with the documented findings and plan of care. Additionally, I was directly involved in the management of the patient and provided the substantive portion of this visit, including examining the patient, obtaining history, and medical decision-making. * Helen Mcknight, PT - 09/01/2025 2:51 PM CDT Physical Therapy Treatment Session Note Patient Name: Madison aMn Today's Date: 09/01/2025 Preferred Language: [place] Assessment & Plan Pt was seen for PT with focus on transfers and gait training. Pt more fatigued today, though progressing well. Pt supervision for all mobility. Slight LOB noted with change in direction, however pt self corrected. Per family, pt has not had an appetite. RN notified. Pt continues to benefit from skilled PT during acute care stay. Pt may benefit from OP PT once discharged. NO DME needs. Assessment: Prognosis: Good Evaluation/Treatment Tolerance: Patient tolerated treatment well Medical Staff Made Aware: Yes Plan: Treatment Plan/Goals Established with Patient/Caregiver: Yes Treatment/Interventions: Balance training, Bed mobility training, Caregiver training, Equipment training, Functional activities, Gait training, Manual therapy, Neuromuscular re-education, Orthotic training, Pain management, Patient education, Positioning, Posture/Body mechanics baring, Stair training, Therapeutic exercises, Transfer training, Wheelchair assessment and management PT Plan: Skilled PT PT Frequency: 2-3 times per week until discharge Subjective Precautions: Medical Precautions: Standard, fall, SBP <150 Pain: PRE-therapy session- Pain Assessment: 0-10 Pain Rating (0-10): 0 Pain Intervention: none needed POST-therapy session- Pain Assessment: 0-10 Pain Rating (0-10): 0 Pain Intervention: none needed Objective General Visit Information: PT Last Visit Date of Last PT Treatment: 09/01/25 General Additional Individuals Present: Yes Others Present: Granddaughter at bedside Cognition Overall Cognitive Status: Within Functional Limits Behavior/Cognition: Alert, Pleasant mood Orientation Level: Oriented X4 Treatment Therapeutic activity: Therapeutic Activity Therapeutic Activity Time Entry: 10 Therapeutic Activity 1: Static sitting EOB ~3min SBA Bed Mobility: Bed Mobility 1: Level of Assistance 1: Supervision/touching assistance Bed Mobility To/From: Supine to sit on EOB, Sitting EOB to supine Assistive Devices And Adaptive Equipments: Bed rail Transfers: Transfers 1: Level of Assistance 1: Supervision/touching assistance Transfer To/From: [id number] Assistive Devices And Adaptive Equipments: Bed rail Gait training: Gait Training Time Entry: 14 Gait Training Activity 1: Distance (enter in feet): 100ft Assistive Devices And Adaptive Equipments: Walker, front-wheeled Level of Assistance 1: Supervision/touching assistance AM-PAC Basic Mobility: AM-PAC Basic Mobility Inpatient Turning in bed without bedrails: None Lying on back to sitting on edge of flat bed: A Little Bed to chair: A Little Standing up from chair: A Little Walk in room: A Little Climbing 3-5 stairs: A Little Mobility Inpatient Raw Score: 19 JH-HLM Goal: 6 Mobility: Highest Level of Mobility Performed (JH-HLM) JH-HLM Goal: 6 Highest Level of Mobility Performed (JH-HLM): Walked 25 feet or more (i.e. walked outside of room) Patient Education: Education Documentation No documentation found. Education Comments No comments found. Goals: Encounter Goals Encounter Goals (Active) Pt will perform bed mobility with LRAD with no assistance. Start: 08/30/25 Expected End: 09/24/25 Patient will perform transfers using LRAD with no assistance to improve functional mobility. Start: 08/30/25 Expected End: 09/24/25 Patient will perform gait training with SBA using LRAD for >250ft. Start: 08/30/25 Expected End: 09/24/25 Treatment Note: If this is the last documented treatment, then it will signify discharge from acute care prior to discharge from the therapy service and will serve as the discharge summary. Helen Mcknight PT * Raina Beauchamp NP - 09/01/2025 2:35 PM CDT [facility] Query Clarification Progress Note As related to the inpatient hospital stay starting on 08/30/2025, 3:59 PM. I have reviewed the patient’s medical record and the following accurately represents the patient’s current condition. PROVIDER RESPONSE TEXT: UTI confirmed Query Created By : Latanya Fajardo, 08/31/2025, 10:14 AM * Daphne Escobar, OT - 09/01/2025 10:23 AM CDT Treatment Session Note Patient Name: Madison Man Today's Date: 09/01/2025 Preferred Language: [place] Assessment & Plan Pt with new hypodensity in R post inf cerebellum but pt showing no new deficits in today's session. Pt completed toileting and transfers with CGA and use of RW. Pt was a little SOB after returned to bed but quickly recovered. Pt is limited by cognition and safety awareness, requiring cueing and increased time. Pt would continue to benefit from skilled OT services to increase safety and independence with ADLs and decrease burden of care as pt is a fall risk. Assessment: Prognosis: Good Barriers to Discharge: Safety awareness, Insight into deficits Evaluation/Treatment Tolerance: Patient tolerated treatment well Strengths: Premorbid level of function, Support and attitude of living partners Medical Staff Made Aware: Yes Medical Staff Made Aware Details: Call light in reach, Bed rails up, Nurse informed, Family/visitor at bedside, Vital signs stable Precautions: UE Weight Bearing Status: FWB LE Weight Bearing Status: FWB Medical Precautions: Standard, fall, SBP <150 Plan: Treatment Plan/Goals Established with Patient/Caregiver: Yes Treatment Interventions: ADL retraining, Cognitive reorientation, Endurance training, Functional transfer training, Patient/family training, Visual perceptual retraining OT Planned Treatments: Activities of Daily Living, Balance training, Cognitive training, Energy conservation training, Mobility training, Safety education, Therapeutic activities, Therapeutic exercises, Patient education, Home program OT Plan: Skilled OT OT Frequency: 2-3 times per week until discharge OT Duration: Discharge OT - OK to Discharge: Yes Subjective Pain: PRE-therapy session- Pain Assessment: 0-10 Pain Rating (0-10): 5 Pain Intervention: repositioning POST-therapy session- Pain Assessment: 0-10 Pain Rating (0-10): 5 Pain Intervention: RN notified and rest Objective Pt received in semi supine in bed with daughters at bedside, NAN Cahpin cleared pt for OT. Pt agreeable to OT and completed bed mobility to sit at EOB. Pt ambulated to bathroom with PIECE HAND and completed toileting. RN delivered a RW and pt ambulated back to bed with RW. Pt completed bed mobility back to bed with and is left in semi supine with all needs met, daughters at bedside, and RN updated. Vital Signs Pre tx: 148/67 Post tx: 150/70 Cognition: Overall Cognitive Status: Impaired Behavior/Cognition: Alert, Cooperative, Pleasant mood Orientation Level: Oriented X4 Following Commands: Follows 1 step commands with increased time Safety Judgment: Decreased awareness of need for assistance Awareness of Deficits: Decreased awareness of deficits General Visit Information: Others Present: Daughters Self Care (ADL): Self Care/Home Management (ADLs) Time Entry: 14 LE Dressing Activity Component(s): Socks LE Dressing Assistance: Substantial/Max assistance LE Dressing Deficit: Don/doff R sock, Don/doff L sock Toileting Assistance: Supervision/touching assistance Toileting Deficit: Increased time to complete, Verbal cueing, Steadying, Supervison/safety ADL Comments: Pt reported she does not wear socks at home Treatment Self-Care: Self Care/Home Management (ADLs) Time Entry: 14 LE Dressing Activity Component(s): Socks LE Dressing Assistance: Substantial/Max assistance LE Dressing Deficit: Don/doff R sock, Don/doff L sock Toileting Assistance: Supervision/touching assistance Toileting Deficit: Increased time to complete, Verbal cueing, Steadying, Supervison/safety ADL Comments: Pt reported she does not wear socks at home Bed Mobility: Bed Mobility Bed Mobility: Yes Bed Mobility 1 Level of Assistance 1: Supervision/touching assistance Bed Mobility To/From: Supine to sit on EOB, Sitting EOB to supine Assistive Devices And Adaptive Equipments: Bed rail Transfers: Transfers Transfer: Yes Transfer 1 Level of Assistance 1: Supervision/touching assistance Trials/Comments 1: PIECE HAND Transfer To/From: [id number] Assistive Devices And Adaptive Equipments: No device Transfers 2 Technique 2: Via walking Level of Assistance 2: Supervision/touching assistance Trials/Comments 2: RN delivered RW to room while pt was on the toilet Transfer To/From: Toilet Assistive Devices And Adaptive Equipments: Walker, front-wheeled Therapeutic Activity Therapeutic Activity Time Entry: 10 AM-PAC Daily Activity: Putting on and taking off regular lower body clothing: A Little Bathing (including washing, rinsing, drying): A Little Toileting, which includes using toilet, bedpan or urinal: A Little Putting on and taking off regular upper body clothing: A Little Taking care of personal grooming such as brushing teeth: A Little Eating Meals: None AM-PAC Daily Activity Raw Score: 19 Mobility Highest Level of Mobility Performed (JH-HLM): Walked 10 steps or more (i.e. walked to restroom) Goals: Encounter Goals Encounter Goals (Active) STG - Patient will dress upper body with SPV. Start: 08/30/25 Expected End: 09/06/25 LTG - Patient will dress lower body with SPV. Start: 08/30/25 Expected End: 09/13/25 STG - Patient completes grooming at sink level with SPV. Start: 08/30/25 Expected End: 09/06/25 LTG - Patient will complete daily toileting tasks with SPV. Start: 08/30/25 Expected End: 09/13/25 Treatment Note: If this is the last documented treatment, then it will signify discharge from acute care prior to discharge from the therapy service and will serve as the discharge summary. Daphne Escobar OT * Derian Luna MD - 09/01/2025 7:30 AM CDT Neurocritical Care Progress Note Consulted by NS for medical mgmt of TBI History Of Present Illness Madison Man, 84 y.o. female with PMH of prior stroke, DM II, HTN, CKD, CHF and dementia, who presented from OSH on 08/28/25 s/p witnessed mechanical GLF fall on concrete with head strike and LOC while not on AC/AP. Her CTH was remarkable for right inferior temporal IPH, b/l tentorial SDH, right frontal SAH and small lateral ventricle hemorrhage. Neurosurgery was consulted to ED to evaluate the patient. Surgical intervention was not indicated so she was admitted to [facility] for close neurological observation and medical management. Interval Events: 08/29: Admit to [facility] 08/30: Neuro stable, some confusion, no overnight events 08/31: Reporting headache this AM, CTH with hypodensity of the R post inf cerebellum, MRI ordered. Severe HTN 09/01: Continue adjusting BP meds, neuro stable, alert, pain controlled, MRI positive for acute stroke, complete stroke workup ASSESSMENT AND PLAN Madison Man, 84 y.o. female with PMH of prior stroke, DM II, HTN, CKD, CHF and dementia, who presented from OSH on 08/28/2025 s/p GLF fall on concrete with head strike LOC while not on AC/AP with CTH positive for multi-compartmental IPH and small lateral ventricular IVH. NEUROLOGIC Left tentorial SDH Right tentorial SDH Right frontal SAH Lateral ventricle IVH Brain contusion Prior Stroke Dementia Acute cerebellar stroke Neuro Exam: GCS: E4 Eyes open spontaneously, V5 Speech oriented, M6 Follows commands MS: AAO x3, following commands CN: L pupil 3, R pupil 3, EOMI, face symmetric Motor: No drift, 5/5 strength throughout Sensory: intact to light touch throughout Gait steady with assistive device initial CTH revealed 0.7 x 1.3 x 1.1 cm R temporal lobe CTX w edema, 0.3 cm Left tentorium cerebelli SDH, thin R tentorium SDH, L temporal convexity SDH, punctate foci of IVH Rpt CTH stable, pending rad read No NSGY indicated No coagulopathy on labs or per history Maintain SBP < 150 to prevent rebleed 08/31: CTH for increased headache, dizziness 08/31: MRI ordered for hypodensity found on CTH Small acute infarct to posterior inferior R cerebellum with assoc petechial hemorrhage. Start aspirin 09/03 Stroke workup S/p Keppra 1gm load; continue 500mg q12h x7d for sz ppx; currently on Day 2 Home meds: Trazodone 100 mg daily, resume Sertraline 25 mg daily, resume Risperidone 1 mg daily, resume Pregabalin 150 mg daily, resume PT/OT/DIGITAL PROGRAM MANAGER as indicated CARDIOVASCULAR Essential hypertension on admission CHF Hypertensive urgency CV Exam: RRR Temp: [36.4 ?C (97.6 ?F)-37.6 ?C (99.7 ?F)] 36.7 ?C (98 ?F) Heart Rate: [62-81] 74 Resp: [-] 16 BP: (119-186)/(58-86) 153/68 VS Parameters: SBP 100-150 PRN hydralazine, labetalol S/p cardene Home meds: Hydralazine 25 mg tid, resumed as 50mg tid; increase to 100mg tid Isosorbide mononitrate 60 mg daily, resumed Losartan potassium 50 mg daily; hold due to Cr increase Metoprolol 25 mg daily, continued, hold for HR <60 09/01 Add nifedipine xr 60mg ECHO for stroke workup ordered EKG: SR, RBBB, VR 90, QTC 530 (monitor QTC on home antipsychotics) PULMONARY Pulm Exam: CTAB on room air w/ spO2>94% Home meds: Fluticasone 50 mcg daily, restart Ipratropium spray 0.06% BID, restart GASTROINTESTINAL Morbid obesity (BMI>40 or/> 35 and has HTN +/ DM) on admission GI Exam: soft, non-distended, present bowl sounds Nutrition: Current Order: Adult Diet Regular bowel regimen: docusate, senna, VT ducolax last BM 08/30 Home med: Famotidine 20 mg daily, continued Lab Results Component Value Date ALT 7 08/29/2025 AST 16 08/29/2025 Alkaline Phosphatase 78 08/29/2025 Bilirubin Total 0.30 08/29/2025 RENAL CKD unspecified on admission No intake or output data in the 24 hours ending 09/01/25 185 Urine Output: 0mL in 24hrs mL/kg/hr (last 24hrs) Results from last 7 days Lab Units 09/01/25 1249 09/01/2552808/31/25 0508/30/25 0546 SODIUM mEq/L 146* 147* 145 148* POTASSIUM mEq/L 3.8 3.7 3.2* 3.5 CHLORIDE mEq/L 111* 113* 109* 113* CO2 mEq/L 22.7 21.9 23.9 22.3 BUN mg/dL 15 14 13 19 CREATININE mg/dL 1.47* 1.48* 1.09* 1.10* MAGNESIUM mg/dL -- 1.75 -- 1.76 PHOSPHORUS mg/dL -- 3.9 -- 2.5 CALCIUM mg/dL 7.9* 8.3 8.6 8.5 no bolden Cr elevated, stop losartan, give 1L bolus and repeat BMP for response CKD; Cr 1-1.25 per chart review Furosemide 20 mg daily, held INFECTIOUS DISEASE Temp (24hrs), Av.8 ?C (98.3 ?F), Min:36.4 ?C (97.6 ?F), Max:37.6 ?C (99.7 ?F) Results from last 7 days Lab Units 09/01/2552808/31/2551108/30/25 0546 WBC 10*3/uL 7.27 10.23 9.88 Monitor trend fever curve and WBC no ABX indicated HEMATOLOGIC Anemia in CKD on admission Thrombocytopenia Hx of breast cancer Results from last 7 days Lab Units 09/01/25 0529 08/31/25 0512 08/30/25 0546 08/29/25 0644 HEMOGLOBIN g/dL 9.5* 9.2* 9.6* 9.5* PLATELETS 10*3/uL 195 203 209 188* INR -- -- -- 1.12 PTT Seconds -- -- -- 31.1 TEG: WNL No coagulopathy on labs or per history DVT ppx: SCDs; SQH Home meds: Anastrazole 1 mg daily, hold ENDOCRINE Hyperlipidemia unspecified on admission, 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) on admission Results from last 7 days Lab Units 09/01/25 1627 09/01/25 1249 09/01/25 0529 POC GLUCOSE mg/dL 127* -- -- GLUCOSE mg/dL -- 156* 118* HEMOGLOBIN A1C % -- -- 5.88* CHOLESTEROL mg/dL -- -- 106 TRIGLYCERIDES mg/dL -- -- 114 HDL CHOLESTEROL mg/dL -- -- 40.4 LDL CALC mg/dL -- -- 43 BG goal 80-180 medium-dose regular ISS Atorvastatin 20 mg, continued LDL 43 A1c 5.88 MUSCULOSKELETAL AND INTEGUMENTARY Osteoporosis Skin Exam: warm, dry, intact PT/OT evaluation pending Home med: Ibandronate 150 mg daily, hold Code Status: Full Code Dispo: once medically clear then home with home health [facility] White Team IMU/Floor IVETT Ph #[phone] (available 24/06), #[phone] (available 6:30a - 4:30p) [facility] Neuro ICU White Team Ph #[id number] * Derian Luna MD - 08/31/2025 2:32 PM CDT [facility] Query Clarification Progress Note As related to the inpatient hospital stay starting on 08/30/2025, 3:59 PM. Chronic Kidney Disease (CKD) is documented in the Medical Record. Please specify the disease stage. PROVIDER RESPONSE TEXT: Chronic kidney disease Stage 3a Query Created By : Latanya Fajardo, 08/31/2025, 10:31 AM * Helen Mcknight, PT - 08/31/2025 1:33 PM CDT Physical Therapy Encounter Note Patient Name: Madison Man Today's Date: 08/31/2025 Missed Treatment Time and Reason Attempted to see pt in PM for PT treatment. Per family, pt's BP has been high and pt just received medication. Family requesting to defer therapy today. PT will follow up for treatment per POC. Helen Mcknight, PT * Derian Luna MD - 08/31/2025 7:30 AM CDT Neurocritical Care Progress Note Consulted by NSGY for medical mgmt of TBI History Of Present Illness Madison Man, 84 y.o. female with PMH of prior stroke, DM II, HTN, CKD, CHF and dementia, who presented from OSH on 08/28/25 s/p witnessed mechanical GLF fall on concrete with head strike and LOC while not on AC/AP. Her CTH was remarkable for right inferior temporal IPH, b/l tentorial SDH, right frontal SAH and small lateral ventricle hemorrhage. Neurosurgery was consulted to ED to evaluate the patient. Surgical intervention was not indicated so she was admitted to [facility] for close neurological observation and medical management. Interval Events: 08/29: Admit to [facility] 08/30: Neuro stable, some confusion, no overnight events 08/31: Reporting headache this AM, CTH with hypodensity of the R post inf cerebellum, MRI ordered. Severe HTN ASSESSMENT AND PLAN Madison Man, 84 y.o. female with PMH of prior stroke, DM II, HTN, CKD, CHF and dementia, who presented from OSH on 08/28/2025 s/p GLF fall on concrete with head strike LOC while not on AC/AP with CTH positive for multi-compartmental IPH and small lateral ventricular IVH. NEUROLOGIC Left tentorial SDH Right tentorial SDH Right frontal SAH Lateral ventricle IVH Brain contusion Prior Stroke Dementia Neuro Exam: GCS: E4 Eyes open spontaneously, V5 Speech oriented, M6 Follows commands MS: AAO x3, following commands CN: L pupil 3, R pupil 3, EOMI, face symmetric Motor: No drift, 5/5 strength throughout Sensory: intact to light touch throughout Gait steady with assistive device initial CTH revealed 0.7 x 1.3 x 1.1 cm R temporal lobe CTX w edema, 0.3 cm Left tentorium cerebelli SDH, thin R tentorium SDH, L temporal convexity SDH, punctate foci of IVH Rpt CTH stable, pending rad read No NSGY indicated No coagulopathy on labs or per history Maintain SBP < 150 to prevent rebleed 08/31: CTH for increased headache, dizziness 08/31: MRI ordered for hypodensity found on CTH S/p Keppra 1gm load; continue 500mg q12h x7d for sz ppx; currently on Day 1 Home meds: Trazodone 100 mg daily, resume Sertraline 25 mg daily, resume Risperidone 1 mg daily, resume Pregabalin 150 mg daily, resume PT/OT/DIGITAL PROGRAM MANAGER as indicated CARDIOVASCULAR Essential hypertension on admission CHF Hypertensive urgency CV Exam: RRR Temp: [37 ?C (98.6 ?F)-37.7 ?C (99.8 ?F)] 37.7 ?C (99.8 ?F) Heart Rate: [71-98] 71 Resp: [14-35] 20 BP: (136-186)/(58-110) 155/65 VS Parameters: SBP 100-150 PRN hydralazine, labetalol S/p cardene Home meds: Hydralazine 25 mg tid, increase to 50mg tid Isosorbide mononitrate 60 mg daily, resumed Losartan potassium 50 mg daily; increase to 100mg daily Metoprolol 25 mg daily, continued EKG: SR, RBBB, VR 90, QTC 530 (monitor QTC on home antipsychotics) PULMONARY Pulm Exam: CTAB on room air w/ spO2>94% Home meds: Fluticasone 50 mcg daily, restart Ipratropium spray 0.06% BID, restart GASTROINTESTINAL Morbid obesity (BMI>40 or/> 35 and has HTN +/ DM) on admission GI Exam: soft, non-distended, present bowl sounds Nutrition: Current Order: Adult Diet Regular bowel regimen: docusate, senna, VT ducolax last BM 08/30 Home med: Famotidine 20 mg daily, continued Lab Results Component Value Date ALT 7 08/29/2025 AST 16 08/29/2025 Alkaline Phosphatase 78 08/29/2025 Bilirubin Total 0.30 08/29/2025 RENAL CKD unspecified on admission No intake or output data in the 24 hours ending 08/31/25 1351 Urine Output: 0mL in 24hrs mL/kg/hr (last 24hrs) Results from last 7 days Lab Units 08/31/25 0512 08/30/25 0546 08/29/25 0644 SODIUM mEq/L 145 148* 142 POTASSIUM mEq/L 3.2* 3.5 3.9 CHLORIDE mEq/L 109* 113* 111* CO2 mEq/L 23.9 22.3 21.6 BUN mg/dL 13 19 19 CREATININE mg/dL 1.09* 1.10* 1.20* MAGNESIUM mg/dL -- 1.76 -- PHOSPHORUS mg/dL -- 2.5 -- CALCIUM mg/dL 8.6 8.5 8.5 no bolden Replete K w 40 meq kcl CKD; Cr 1-1.25 per chart review Furosemide 20 mg daily, held INFECTIOUS DISEASE Temp (24hrs), Av.3 ?C (99.1 ?F), Min:37 ?C (98.6 ?F), Max:37.7 ?C (99.8 ?F) Results from last 7 days Lab Units 08/31/25 0512 08/30/25 0546 08/29/25 0644 WBC 10*3/uL 10.23 9.88 5.25 Monitor trend fever curve and WBC no ABX indicated HEMATOLOGIC Anemia in CKD on admission Thrombocytopenia Hx of breast cancer Results from last 7 days Lab Units 08/31/25 0512 08/30/25 0546 08/29/25 0644 HEMOGLOBIN g/dL 9.2* 9.6* 9.5* PLATELETS 10*3/uL 203 209 188* INR -- -- 1.12 PTT Seconds -- -- 31.1 TEG: WNL No coagulopathy on labs or per history DVT ppx: SCDs; SQH Home meds: Anastrazole 1 mg daily, hold ENDOCRINE Hyperlipidemia unspecified on admission, 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) on admission Results from last 7 days Lab Units 08/31/2551108/30/25 0546 08/29/25 1341 POC GLUCOSE mg/dL -- -- 187* GLUCOSE mg/dL 177* 148* -- BG goal 80-180 medium-dose regular ISS Atorvastatin 20 mg, continued MUSCULOSKELETAL AND INTEGUMENTARY Osteoporosis Skin Exam: warm, dry, intact PT/OT evaluation pending Home med: Ibandronate 150 mg daily, hold Code Status: Full Code Dispo: once medically clear then home with home health [facility] White Team IMU/Floor IVETT Ph #[phone] (available 24/06), #[phone] (available 6:30a - 4:30p) [facility] Neuro ICU White Team Ph #[id number] * Shadia Garcia LMSW - 08/30/2025 2:15 PM CDT Plan A: HH Plan B: SNF CM asked whether patient will have adequate help at home after discharge: family is willing and has capacity to assist and care for patient; able to assist with f/u appointments if needed, including transportation. Patient's/Family's response: Yes 08/30/25 1300 Readmission Questions Is this hospital visit a Readmission? No Discharge Planning Information Source Family Permanent Residence Private residence ([address], [place] [address]) Permanent Residence Type Single story home Household Members Children (lives with dtr, Selena Escalante, ) Support Systems Spouse/significant other (6 adult chidren in [place]. All children makes decisions together, no MPOA.) Arrived From Permanent Residence Barriers to Discharge Home pending jai carr In the last 12 months, was there a time when you were not able to pay the mortgage or rent on time? N In the past 12 months, how many times have you moved where you were living? 0 At any time in the past 12 months, were you homeless or living in a correction (including now)? N In the past 12 months has the [employer], gas, oil, or water [employer] threatened to shut off services in your home? No Within the past 12 months, you worried that your food would run out before you got the money to buy more. Never true Within the past 12 months, the food you bought just didn't last and you didn't have money to get more. Never true Assistive Devices Walker Current Services Home Health Patient expects to be discharged to: [facility] Expected Discharge Disposition HH Services Caregiver assessment needed? Yes Patient will have adequate help at home after discharge Yes Caregiver is willing and has capacity to assist and care for patient Yes Caregiver is able to assist with follow up appointments and transportation Yes Caregiver Name and Contact Information Selena Escalante, Anticipated Services at Discharge In home services Type of Home Care Services Home PT;Home OT;Home nursing visits;Home health aide In the past 12 months, has lack of transportation kept you from medical appointments or from getting medications? no In the past 12 months, has lack of transportation kept you from meetings, work, or from getting things needed for daily living? No Does the patient need discharge transport arranged? No Discharge Planning Comments SW communicated with Pt dtrs at bedside. Dtr, Selena Escalante reports Pt resides at home with her and utilizes a RW following knee surgery. Pt also recieved home health services that family would like to resueme. At time of DPA, family was not agreeable to IPR vs SNF for Pt. Pt has a total of 6 adult children, none of which reports having MPOA, decisions are made together. Pt family provides help and supports for Pt as well as transportation when needed and to return home. PCP is Dr. Donald Orr and pharmacy used is [facility] in [place], [place]. Pt has no unmet SDOH needs. SW expalined role, discharge planning and possible discharge options. Family is agreeable to for Pt to return home with services. Family is not open to SNF vs IPR. SW/CM to follow up as needed. Shadia Garcia LMSW Sr. Strategic Sourcing Manager Case Management Department (O)[phone] [email or web address] * Daphne Escobar OT - 08/30/2025 12:36 PM CDT Evaluation and Treatment Patient Name: Madison Man Today's Date: 08/30/2025 Preferred Language: [place] Assessment & Plan Pt is an 84 yo female admitted after fall and found to have a R temporal contusion and L tenatorial SDH. PLOF: Pt reported PLOF as IND with ADLs using a RW after knee replacement 07/2025 , and was living in a [facility] with daughter who is home at all times. Pt also has a rollator and shower chair. This is pt's first reported fall. CLOF: Pt's CLOF is CGA for all mobility, though pt requires Max A tod don/doff footwear. Pt is limited by safety awareness, insight into deficits, balance, global strength, functional mobility, and self care skills. Assessment: Pt was pleasant and cooperative for OT, presents with the above problem list, and is below baseline level of function. Pt would benefit from skilled OT services to increase safety and independence with ADLs and decrease burden of care as pt is a fall risk. Assessment: OT Assessment Results: Impaired ADL status, Impaired safe judgment during ADL, Impaired cognition, Impaired endurance, Impaired functional mobility, Impaired IADLs, Impaired trunk control for functional activities Prognosis: Good Barriers to Discharge: Safety awareness, Insight into deficits Evaluation/Treatment Tolerance: Patient tolerated treatment well Strengths: Premorbid level of function Medical Staff Made Aware: Yes Medical Staff Made Aware Details: Call light in reach, Bed rails up, Nurse informed, Family/visitor at bedside Plan: Treatment Plan/Goals Established with Patient/Caregiver: Yes Treatment Interventions: ADL retraining, Cognitive reorientation, Endurance training, Functional transfer training, Patient/family training, Visual perceptual retraining OT Planned Treatments: Activities of Daily Living, Balance training, Cognitive training, Energy conservation training, Mobility training, Safety education, Therapeutic activities, Therapeutic exercises, Patient education, Home program OT Plan: Skilled OT OT Frequency: 2-3 times per week until discharge OT Duration: Discharge OT - OK to Discharge: Yes Subjective Current Problem: Per EMR: "Madison Man is an 84-year-old female who is presenting after a witnessed fall with a positive LOC. CT head demonstrates a small right temporal contusion and left tentorial subdural hematoma. She has a past medical history of dementia, CHF, CVA, hypertension, CKD. She/family denies any use of anticoagulation or antiplatelet medications at home. Impression - small right temporal contusion and left tentorial subdural hematoma" Pain: PRE-therapy session- Pain Assessment: 0-10 Pain Rating (0-10): 0 Pain Intervention: none needed POST-therapy session- Pain Assessment: 0-10 Pain Rating (0-10): 0 Pain Intervention: none needed Objective Pt received in semi supine in bed with family at bedside, RN Ginger cleared pt for OT. Pt agreeable to OT and family provided PLOF for pt. Pt sat at Eob to be assessed and attempted doffing/ donning footwear. Pt completed bed mobility back to bed with CGA and is left in semi supine with all needs met and RN updated. General Visit Information: Others Present: x3 daughters at bedside Precautions: UE Weight Bearing Status: FWB LE Weight Bearing Status: FWB Medical Precautions: Standard, fall Cognition: Overall Cognitive Status: Impaired Behavior/Cognition: Alert, Cooperative, Pleasant mood Orientation Level: Disoriented to place, Disoriented to time Home Living: Type of Home: House Admitted From: Home Lives With: Daughter Home Layout: One level Home Access: Level entry Bathroom Shower/Tub: Walk-in shower Bathroom Equipment: Shower chair with back Prior Function: Level of Lewis: Independent with ADLs and functional transfers, Ambulated with assistive device (comment) Prior Function Comments: Pt reported PLOF as IND with ADLs and used a RW after knee surgery for ambulation. Social History: Social History Source: Patient, Adult child Self Care (ADL): LE Dressing Activity Component(s): Socks LE Dressing Assistance: Substantial/Max assistance LE Dressing Deficit: Don/doff R sock, Don/doff L sock Mobility/Transfers: Bed Mobility Bed Mobility Bed Mobility: Yes Bed Mobility 1 Level of Assistance 1: Partial/Mod assistance Bed Mobility Comments 1: Min A Bed Mobility To/From: Supine to sit on EOB, Sitting EOB to supine Assistive Devices And Adaptive Equipments: Bed rail Transfer Transfers Transfer: Yes Transfer 1 Level of Assistance 1: Supervision/touching assistance Trials/Comments 1: PIECE HAND Transfer To/From: Cis-[id number]-Dhkec/Fkkda-[id number]-Vck Assistive Devices And Adaptive Equipments: No device OT General Assessments: Activity Tolerance Activity Tolerance Endurance: Endurance does not limit participation in activity Sitting Balance: Sits without support for more than 30 sec Vision ComplexVision - Complex Assessment Vision Comments: 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 Sensation Sensation Light Touch: RUE Intact, LUE Intact Coordination Coordination Movements are Fluid and Coordinated: Yes Hand Function Balance- Sitting Static Sitting-Balance Support: Right upper extremity supported Level of Assistance: Close supervision Balance- Standing Static Standing-Balance Support: Left upper extremity supported Static Standing-Level of Assistance: Contact guard Extremity Assessments: Right Upper Extremity RUE Assessment RUE Assessment: Within Functional Limits Left Upper Extremity LUE Assessment LUE Assessment: Within Functional Limits Upper Extremity Tone Upper Extremity Tone Left Upper Extremity: Normal Right Upper Extremity: Normal Treatment: Bed Mobility: Bed Mobility Bed Mobility: Yes Bed Mobility 1 Level of Assistance 1: Partial/Mod assistance Bed Mobility Comments 1: Min A Bed Mobility To/From: Supine to sit on EOB, Sitting EOB to supine Assistive Devices And Adaptive Equipments: Bed rail Transfers: Transfers Transfer: Yes Transfer 1 Level of Assistance 1: Supervision/touching assistance Trials/Comments 1: PIECE HAND Transfer To/From: Wak-dy-[id number]/Hiykq-ok-Ogp Assistive Devices And Adaptive Equipments: No device Therapeutic Activity Therapeutic Activity Time Entry: 10 Therapeutic Activity 2: bed mobility Therapeutic Activity 3: sitting balance Therapeutic Activity 4: standing balance Therapeutic Activity 5: STS AM-PAC Daily Activity: Putting on and taking off regular lower body clothing: A Little Bathing (including washing, rinsing, drying): A Little Toileting, which includes using toilet, bedpan or urinal: A Little Putting on and taking off regular upper body clothing: A Little Taking care of personal grooming such as brushing teeth: None Eating Meals: None AM-PAC Daily Activity Raw Score: 20 Mobility Highest Level of Mobility Performed (JH-HLM): Static standing (1 or more minutes) Patient Education: Education Documentation Occupational Therapy Plan of Care, taught by Daphne Escobar OT at 08/30/2025 1:37 PM. Learner: Family, Patient Readiness: Acceptance Method: Explanation Response: Verbalizes Understanding Education Comments No comments found. Goals: Encounter Goals Encounter Goals (Active) STG - Patient will dress upper body with SPV. Start: 08/30/25 Expected End: 09/06/25 LTG - Patient will dress lower body with SPV. Start: 08/30/25 Expected End: 09/13/25 STG - Patient completes grooming at sink level with SPV. Start: 08/30/25 Expected End: 09/06/25 LTG - Patient will complete daily toileting tasks with SPV. Start: 08/30/25 Expected End: 09/13/25 Treatment Note: If this is the last documented treatment, then it will signify discharge from acute care prior to discharge from the therapy service and will serve as the discharge summary. Daphne Escobar OT * Derian Luna MD - 08/30/2025 8:25 AM CDT Neurocritical Care Progress Note Consulted by NSGY for medical mgmt of TBI History Of Present Illness Madison Sanchezierrez, 84 y.o. female with PMH of prior stroke, DM II, HTN, CKD, CHF and dementia, who presented from OSH on 08/28/25 s/p witnessed mechanical GLF fall on concrete with head strike and LOC while not on AC/AP. Her CTH was remarkable for right inferior temporal IPH, b/l tentorial SDH, right frontal SAH and small lateral ventricle hemorrhage. Neurosurgery was consulted to ED to evaluate the patient. Surgical intervention was not indicated so she was admitted to [facility] for close neurological observation and medical management. Interval Events: 08/29: Admit to [facility] 08/30: Neuro stable, some confusion, no overnight events ASSESSMENT AND PLAN Madison Sanchezierrez, 84 y.o. female with PMH of prior stroke, DM II, HTN, CKD, CHF and dementia, who presented from OSH on 08/28/2025 s/p GLF fall on concrete with head strike LOC while not on AC/AP with CTH positive for multi-compartmental IPH and small lateral ventricular IVH. NEUROLOGIC Left tentorial SDH Right tentorial SDH Right frontal SAH Lateral ventricle IVH Brain contusion Prior Stroke Dementia Neuro Exam: GCS: E4 Eyes open spontaneously, V5 Speech oriented, M6 Follows commands MS: AAO x3, following commands, speech fluent, no dysarthria CN: L pupil 3, R pupil 3, EOMI, face symmetric Motor: No drift, 5/5 strength throughout Sensory: intact to light touch throughout initial CTH revealed 0.7 x 1.3 x 1.1 cm R temporal lobe CTX w edema, 0.3 cm Left tentorium cerebelli SDH, thin R tentorium SDH, L temporal convexity SDH, punctate foci of IVH Rpt CTH stable, pending rad read No NSGY indicated No coagulopathy on labs or per history Maintain SBP < 150 to prevent rebleed S/p Keppra 1gm load; continue 500mg q12h x7d for sz ppx; currently on Day 0 Home meds: Trazodone 100 mg daily, resume Sertraline 25 mg daily, resume Risperidone 1 mg daily, resume Pregabalin 150 mg daily, resume PT/OT/DIGITAL PROGRAM MANAGER as indicated CARDIOVASCULAR Essential hypertension on admission CHF Hypertensive urgency CV Exam: RRR Temp: [36.8 ?C (98.2 ?F)] 36.8 ?C (98.2 ?F) Heart Rate: [75-103] 103 Resp: [10-26] 22 BP: (121-162)/(52-90) 162/90 VS Parameters: SBP 100-150 PRN hydralazine, labetalol Weaned off cardene Home meds: Hydralazine 25 mg daily, continue Isosorbide mononitrate 60 mg daily, resumed Losartan potassium 50 mg daily GFR 49, Cr at baseline was on this medication at home, will resume Metoprolol 25 mg daily, continued EKG: SR, RBBB, VR 90, QTC 530 (monitor QTC on home antipsychotics) PULMONARY Pulm Exam: CTAB on room air w/ spO2>94% Home meds: Fluticasone 50 mcg daily, restart Ipratropium spray 0.06% BID, restart GASTROINTESTINAL Morbid obesity (BMI>40 or/> 35 and has HTN +/ DM) on admission GI Exam: soft, non-distended, present bowl sounds Nutrition: Current Order: Adult Diet Regular bowel regimen: docusate, senna, VT ducolax last BM [employer] Home med: Famotidine 20 mg daily, continued Lab Results Component Value Date ALT 7 08/29/2025 AST 16 08/29/2025 Alkaline Phosphatase 78 08/29/2025 Bilirubin Total 0.30 08/29/2025 RENAL CKD unspecified on admission No intake or output data in the 24 hours ending 08/30/25 0825 Urine Output: 0mL in 24hrs mL/kg/hr (last 24hrs) Results from last 7 days Lab Units 08/30/25 0546 08/29/25 0644 08/29/25 0016 SODIUM mEq/L 148* 142 141 POTASSIUM mEq/L 3.5 3.9 3.9 CHLORIDE mEq/L 113* 111* 108* CO2 mEq/L 22.3 21.6 21.3 BUN mg/dL 19 19 22 CREATININE mg/dL 1.10* 1.20* 1.26* MAGNESIUM mg/dL 1.76 -- -- PHOSPHORUS mg/dL 2.5 -- -- CALCIUM mg/dL 8.5 8.5 8.4 no bolden CKD; Cr 1-1.25 per chart review Furosemide 20 mg daily, held INFECTIOUS DISEASE Temp (24hrs), Av.8 ?C (98.2 ?F), Min:36.8 ?C (98.2 ?F), Max:36.8 ?C (98.2 ?F) Results from last 7 days Lab Units 08/30/25 0546 08/29/25 0644 08/29/25 0016 WBC 10*3/uL 9.88 5.25 6.18 Monitor trend fever curve and WBC no ABX indicated HEMATOLOGIC Anemia in CKD on admission Thrombocytopenia Hx of breast cancer Results from last 7 days Lab Units 08/30/25 0546 08/29/25 0644 08/29/25 0016 HEMOGLOBIN g/dL 9.6* 9.5* 9.9* PLATELETS 10*3/uL 209 188* 177* INR -- 1.12 -- PTT Seconds -- 31.1 -- TEG: WNL No coagulopathy on labs or per history DVT ppx: SCDs; hold sc heparin Home meds: Anastrazole 1 mg daily, hold ENDOCRINE Hyperlipidemia unspecified on admission, 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) on admission Results from last 7 days Lab Units 08/30/25 0546 08/29/25 1341 08/29/25 0644 POC GLUCOSE mg/dL -- 187* -- GLUCOSE mg/dL 148* -- 196* BG goal 80-180 medium-dose regular ISS Atorvastatin 20 mg, continued MUSCULOSKELETAL AND INTEGUMENTARY Osteoporosis Skin Exam: warm, dry, intact PT/OT evaluation pending Home med: Ibandronate 150 mg daily, hold Code Status: Full Code Dispo: once medically clear then home with home health [facility] White Team IMU/Floor IVETT Ph #[phone] (available 24/06), #[phone] (available 6:30a - 4:30p) [facility] Neuro ICU White Team Ph #[phone] * Helen Mcknight, PT - 08/30/2025 7:45 AM CDT Physical Therapy Evaluation and Treatment Note Patient Name: Madison Man Today's Date: 08/30/2025 Preferred Language: [place] Assessment & Plan 84 yo F admitted after fall, found to have R temporal contusion and L tentorial SDH. Per family, pt has been using a walker for mobility since L knee replacement, however independent prior. Pt currently confused, though following commands well. Pt demonstrating bed mobility with Kaylynn for trunk. Pt CGA for all transfers and OOB mobility using walker. Pt with slight balance impairments and increased gait speed. Pt continues to benefit from skilled PT during acute care stay. PT recommendation: Home with family and OP PT DME: None Assessment: Prognosis: Good Evaluation/Treatment Tolerance: Patient tolerated treatment well Medical Staff Made Aware: Yes Plan: Treatment Plan/Goals Established with Patient/Caregiver: Yes Treatment/Interventions: Bed mobility training, Caregiver training, Balance training, Equipment training, Functional activities, Gait training, Manual therapy, Neuromuscular re-education, Orthotic training, Pain management, Patient education, Positioning, Posture/Body mechanics baring, Scar management, Stair training, Therapeutic exercises, Transfer training, Wheelchair assessment and management PT Plan: Skilled PT PT Frequency: 2-3 times per week until discharge PT Recommended Transfer Status: Assistive equipment (Comment) Subjective Current Problem: Per EMR 84-year-old female who is presenting after a witnessed fall with a positive LOC. CT head demonstrates a small right temporal contusion and left tentorial subdural hematoma. She has a past medical history of dementia, CHF, CVA, hypertension, CKD. She/family denies any use of anticoagulation or antiplatelet medications at home. Impression - small right temporal contusion and left tentorial subdural hematoma Pain: Pain Scale: 0-10 Pain Rating at Start of Session: 4 = Distracts me, can do usual activities Pain Rating at End of Session: 4 = Distracts me, can do usual activities Pain Type: Surgical pain Pain Location: Incision Pain Orientation: Left Pain Comments: L knee Home Living: Type of Home: House Lives With: Daughter Home Layout: One level Home Access: Level entry Prior Level of Function: Level of Lewis: Ambulated with assistive device (comment) Prior Function Comments: Per daughter, pt lives with another daughter. Pt has been using a walker for mobility since L knee replacement. Prior to knee replacement, pt was completely independent. Pt has been going to OP PT. Objective General Visit Information: Additional Individuals Present: Yes Others Present: Daughters at bedside Precautions: Medical Precautions: Fall, Standard Cognition: Overall Cognitive Status: Impaired Behavior/Cognition: Alert, Cooperative, Confused Orientation Level: Disoriented to time, Disoriented to place General Assessments: Sensation Sensation Light Touch: LLE Intact, RLE Intact Coordination Coordination Movements are Fluid and Coordinated: Yes Balance- Sitting Static Sitting-Balance Support: Right upper extremity supported, Left upper extremity supported Level of Assistance: Supervision/touching assistance Balance- Standing Static Standing-Balance Support: Left upper extremity supported, Right upper extremity supported Static Standing-Level of Assistance: Supervision/touching assistance Functional Assessments: Bed Mobility Bed Mobility 1: Level of Assistance 1: Partial/Mod assistance Bed Mobility Comments 1: Kaylynn Bed Mobility To/From: Roll lying on back to left, Supine to sit on EOB, Sitting EOB to supine Assistive Devices And Adaptive Equipments: Bed rail Transfers Transfers 1:Level of Assistance 1: Supervision/touching assistance Transfer To/From: Caz-nk-Wnybl/Ykgph-[id number]-Brw Assistive Devices And Adaptive Equipments: Walker, front-wheeled Gait Training Activity 1:Distance (enter in feet): 100ft Assistive Devices And Adaptive Equipments: Walker, front-wheeled Level of Assistance 1: Supervision/touching assistance Extremity Assessments:Right Lower Extremity RLE Assessment RLE Assessment: Within Functional Limits Left Lower Extremity LLE Assessment LLE Assessment: Exceptions to WFL (4/5, limited due to pain) Cognition Overall Cognitive Status: Impaired Behavior/Cognition: Alert, Cooperative, Confused Orientation Level: Disoriented to time, Disoriented to place TreatmentPost-Therapy Checklist: Pt supine in bed, HOB elevated >30 degrees, Bed/chair alarm on, Call light within reach, Family/visitor(s) at bedside, All lines/lead intact, Vital signs stable, and RN informed/aware AM-PAC Basic Mobility:Turning in bed without bedrails: None Lying on back to sitting on edge of flat bed: A Little Bed to chair: A Little Standing up from chair: A Little Walk in room: A Little Climbing 3-5 stairs: A Lot Mobility Inpatient Raw Score: 18 JH-HLM Goal: 6 Mobility: Highest Level of Mobility Performed (JH-HLM)Walked 25 feet or more (i.e. walked outside of room) Patient Education:Education Documentation Physical Therapy Plan of Care, taught by Helen Mcknight PT at 08/30/2025 10:41 AM. Learner: Family Readiness: Acceptance Method: Explanation Response: Verbalizes Understanding Education CommentsNo comments found. Goal:Encounter Goals Encounter Goals (Active) Pt will perform bed mobility with LRAD with no assistance. Start: 08/30/25 Expected End: 09/24/25 Patient will perform transfers using LRAD with no assistance to improve functional mobility. Start: 08/30/25 Expected End: 09/24/25 Patient will perform gait training with SBA using LRAD for >250ft. Start: 08/30/25 Expected End: 09/24/25 Treatment Note: If this is the last documented treatment, then it will signify discharge from acute care prior to discharge from the therapy service and will serve as the discharge summary. Helen Mcknight PT * Abdiaziz Horton MD - 08/30/2025 4:55 AM CDT NEUROSURGERY PROGRESS NOTE: Date: 08/30/25 Patients Name: Madison Man Admit Date: 08/28/2025 Admitting Provider: Baron Paul MD : 1940 Service: Neurosurgery Trauma Team Age/Sex: 84 y.o. female SUBJECTIVE: No neuro events. OBJECTIVE: Vitals: Vitals: 08/29/25 2340 08/30/25 0110 08/30/25 0200 08/30/25 0400 BP: 126/60 145/63 (!) 136/52 142/63 Pulse: 80 84 90 100 Resp: 19 20 21 (!) 24 Temp: SpO2: 96% 95% 95% 95% I/O: No intake or output data in the 24 hours ending 08/30/25 0456 PHYSICAL EXAM:Physical Exam: Eyes: Pupils: Pupils are equal, round, and reactive to light. Neurological: Mental Status: She is alert. GCS: GCS eye subscore is 4. GCS verbal subscore is 4. GCS motor subscore is 6. LABS/IMAGING:Labs: UA WBC Date Value Ref Range Status 08/29/2025 9 (H) 0 - 5 /HPF Final HgbDate Value Ref Range Status 08/29/2025 9.5 (L) 10.8 - 14.8 g/dL Final HctDate Value Ref Range Status 08/29/2025 29.2 (L) 33.9 - 45.4 % Final Plt CountDate Value Ref Range Status 08/29/2025 188 (L) 191 - 422 10*3/uL Final Sodium LvlDate Value Ref Range Status 08/29/2025 142 136 - 145 mEq/L Final Potassium LvlDate Value Ref Range Status 08/29/2025 3.9 3.4 - 4.5 mEq/L Final Creatinine LvlDate Value Ref Range Status 08/29/2025 1.20 (H) 0.55 - 1.02 mg/dL Final Prothrombin Time (PT)Date Value Ref Range Status 08/29/2025 14.6 12 - 14.7 Seconds Final PTTDate Value Ref Range Status 08/29/2025 31.1 22.9 - 35.8 Seconds Final Activated Clotting Time (TEG) RapidDate Value Ref Range Status 08/29/2025 89 86 - 118 sec Final Radiology Imaging Reviewed: - I have personally reviewed all pertinent NSGY imaging studies and agree with the findings under "impression" ASSESSMENT AND PLAN:Active Problems: Patient Active Problem List Diagnosis Subdural hematoma (CMS/HCC) Assessment/PlanFelicita Saqib is an 84-year-old female who is presenting after a witnessed fall with a positive LOC. CT head demonstrates a small right temporal contusion and left tentorial subdural hematoma. She has a past medical history of dementia, CHF, CVA, hypertension, CKD. She/family denies any use of anticoagulation or antiplatelet medications at home. Impression- small right temporal contusion and left tentorial subdural hematoma The patient is neurologically unchanged with unchanged imaging showing SDH and contusion s/p fall. No further neurosurgical interventions are needed. I recommend following the neurological exam and repeating imaging for acute changes. The patient may follow up in neurotrauma clinic ([phone]). I have updated her family on her condition and have answered their questions. Please call [phone] with questions. Abdiaziz Horton [facility] Neurosurgery [facility]2025-10-03 12:32:11Pending Results Scheduled Orders Name Type Priority Associated Diagnoses Order Schedule Electrocardiogram, 12-lead ECG STAT Once for 1 Occurrences starting 08/29/2025 until 08/29/2025 Basic Metabolic Panel Lab STAT Morning draw (La b) until discontinued starting 08/30/2025, 5 completed Complete Blood Count (no diff) Lab STAT Morning draw (La b) until discontinued starting 08/30/2025, 5 completed Magnesium Level Lab STAT Every Mon /Wed/Fri (Lab) until discontinued starting 08/30/2025, 3 completed Phosphorus Level Lab STAT Every Mo n/Wed/Fri (Lab) until discontinued starting 08/30/2025, 3 completed Holter monitor Cardiac Services Routine Once for 1 Occurrences starting 09/03/2025 until 09/03/2025 Health Maintenance Due Date Last Done Comments Medicare Annual Wellness (AWV) 1940 Diabetes: Foot Exam 1950 Diabetes: Retinopathy Screening 1950 Respiratory Syncytial Virus (RSV) Adult Series (1 - 1-dose 75+ series) 2014 DTaP/Tdap/Td Vaccines (1 - Tdap) 01/15/2017 01/14/2017 Diabetes: Urine Protein Screening 07/21/2022 07/21/2021 Hepatitis B Vaccines (3 of 3 - Hep B Twinrix 3-dose series) 07/09/2024 02/07/2024, 10/16/2023 Influenza Vaccine (#1) 2025 , 10/16/2023, 11/10/2022, Additional history exists Diabetes: Hemoglobin A1C 03/02/2026 09/01/2025, 10/02 Lipid Panel 09/01/2026 09/01/2025, 07/21/2021 Pneumococcal Vaccine: 50+ Years Completed 11/10/2022, 09/10/2017, 10/06/2013 Hepatitis A Vaccines Aged Out 02/07/2024, 10/16/20 No longer eligible based on patient's age to complete this topic Zoster Vaccines Completed 02/07/2024, 10/16/2023 HIB Vaccines Aged Out No longer eligi [...] age to complete this topic [id number] Diagnosis Subdural hematoma (CMS/HCC) - Primary Subdural hemorrhage Intraparenchymal hemorrhage of brain SDH (subdural hematoma) (CMS/HCC) Subdural hemorrhage Cerebrovascular accident (CV A), unspecified mechanism Intraparenchymal hemorrhage of brain [id number] 12:32:11 [id number] 11:32:11 Images from the original note were not included. [id number] Levetiracetam WHY is this medicine prescribed? Levetiracetam is used alone and along with other medications to control partial-onset seizures (seizures that involve only one part of the brain) in adults, children, and infants 1 month of age or older. Levetiracetam is also used in combination with other medications to treat seizure in adults and children 12 years of age or older with juvenile myoclonic epilepsy. Levetiracetam is also used in combination with other medications to treat primary generalized tonic-clonic seizures (formerly known as a grand mal seizure; seizure that involves the entire body) in adults and children 6 years of age or older with epilepsy. Levetiracetam is in a class of medications called anticonvulsants. It works by decreasing abnormal excitement in the brain. HOW should this medicine be used? Levetiracetam comes as a solution (liquid), an immediate-release tablet, an extended-release (long-acting) tablet, and as a tablet for suspension (a tablet to take with liquid) to take by mouth. The solution, immediate-release tablet, and tablet for suspension are usually taken twice a day, once in the morning and once at night, with or without food. The extended-release tablets are usually taken once daily with or without food. Try to take levetiracetam at around the same time(s) every day. Follow the directions on your prescription label carefully, and ask your doctor or pharmacist to explain any part you do not understand. Take levetiracetam exactly as directed. Do not take more or less of it or take it more often than prescribed by your doctor. Swallow the levetiracetam immediate-release and extended-release tablets whole; do not split, chew, or crush them. Take the whole levetiracetam tablets for suspension according to directions; do not split, chew, or crush them. To take levetiracetam tablet(s) for suspension, use dry hands to peel the foil from the blister packaging; do not try to push the tablets through the foil. Immediately take out the number of tablet(s) that your doctor has told you to take and place the tablet(s) on your tongue with a sip of liquid. Once the tablet completely dissolves on your tongue, swallow the mixture. The tablet(s) may take about 10 seconds to dissolve. You can also take levetiracetam tablets for suspension by dissolving them in a liquid. Place the number of tablet(s) your doctor has told you to take into a cup and add a small amount of liquid (about 1 tablespoon [15 mL] or enough to cover the medication in a cup). Swirl the cup gently. After the tablet(s) for suspension dissolve, drink the mixture right away. If there is any medication left in the cup, add some more liquid and swirl the cup gently. Drink the mixture water right away to be sure that you swallow all of the medication. If you are taking the levetiracetam oral solution, do not use a household spoon to measure your dose. You might not get the right amount of medication. Ask your doctor or pharmacist to recommend a medicine dropper, spoon, cup, or syringe and to show you how to use it to measure your medication. Your doctor may start you on a low dose of levetiracetam and gradually increase your dose, not more often than once every 2 weeks. Levetiracetam controls epilepsy but does not cure it. Continue to take levetiracetam even if you feel well. Do not stop taking levetiracetam without talking to your doctor, even if you experience side effects such as unusual changes in behavior or mood. If you suddenly stop taking levetiracetam, your seizures may become worse. Your doctor will probably decrease your dose gradually. Your doctor or pharmacist will give you the [employer]'s patient information sheet (Medication Guide) when you begin treatment with levetiracetam and each time you refill your prescription. Read the information carefully and ask your doctor or pharmacist if you have any questions. You can also visit the Food and Drug Administration (FDA) website (https://www.fda.gov/Drugs) or the [employer] professor's website to obtain the Medication Guide. Are there OTHER USES for this medicine? This medication may be prescribed for other uses; ask your doctor or pharmacist for more information. What SPECIAL PRECAUTIONS should I follow? Before taking levetiracetam, ? tell your doctor and pharmacist if you are allergic to levetiracetam, any other medications, or any of the ingredients in levetiracetam products. Ask your pharmacist or check the Medication Guide for a list of the ingredients. ? tell your doctor and pharmacist what prescription and nonprescription medications, vitamins, nutritional supplements, and herbal products you are taking or plan to take. Your doctor may need to change the doses of your medications or monitor you carefully for side effects. ? tell your doctor if you have or have ever had kidney disease, depression, mood problems, or suicidal thoughts or behavior. ? tell your doctor if you are , plan to become , or are . If you become while taking levetiracetam, call your doctor. ? you should know that levetiracetam may make you dizzy or drowsy. Do not drive a car or operate machinery until you know how this medication affects you. ? you should know that your mental health may change in unexpected ways and you may become suicidal (thinking about harming or killing yourself or planning or trying to do so) while you are taking levetiracetam for the treatment of epilepsy, mental illness, or other conditions. A small number of adults and children 5 years of age and older (about 1 in 500 people) who took anticonvulsants such as levetiracetam to treat various conditions during clinical studies became suicidal during their treatment. Some of these people developed suicidal thoughts and behavior as early as one week after they started taking the medication. There is a risk that you may experience changes in your mental health if you take an anticonvulsant medication such as levetiracetam, but there may also be a risk that you will experience changes in your mental health if your condition is not treated. You and your doctor will decide whether the risks of taking an anticonvulsant medication are greater than the risks of not taking the medication. You, your family, or your caregiver should call your doctor right away if you experience any of the following symptoms: panic attacks; agitation or restlessness; nervousness, new or worsening irritability, anxiety, or depression; acting on dangerous impulses; difficulty falling or staying asleep; aggressive, angry, or violent behavior; joseline (frenzied, abnormally excited mood); talking or thinking about wanting to hurt yourself or end your life; withdrawing from friends and family; preoccupation with and dying; giving away prized possessions; or any other unusual changes in behavior or mood. Be sure that your family or caregiver knows which symptoms may be serious so they can call the doctor if you are unable to seek treatment on your own. What SPECIAL DIETARY instructions should I follow? Unless your doctor tells you otherwise, continue your normal diet. What should I do IF I FORGET to take a dose? If it has only been a few hours since the time you were scheduled to take the dose, take the missed dose as soon as you remember it. However, if it is almost time for the next dose, skip the missed dose and continue your regular dosing schedule. Do not take a double dose to make up for a missed one. What SIDE EFFECTS can this medicine cause? Some side effects can be serious. If you experience any of the following symptoms or those listed in the SPECIAL PRECAUTIONS section, call your doctor immediately: ? rash, fever, swollen lymph nodes, facial swelling, shortness of breath, yellowing of skin or whites of the eyes, dark urine ? seizures that are worse or different than the seizures you had before ? fever, sore throat, or other signs of infection ? blisters on skin ? hives ? itching ? swelling of the face, throat, tongue, lips. and eyes ? difficulty swallowing or breathing ? loss of balance or coordination Levetiracetam may cause other side effects. Call your doctor if you have any unusual problems while taking this medication. If you experience a serious side effect, you or your doctor may send a report to the Food and Drug Administration's (FDA) MedWatch Adverse Event Reporting program online (https://www.fda.gov/Safety/MedWatch) or by phone ( ). What should I know about STORAGE and DISPOSAL of this medication? Keep this medication in the container it came in, tightly closed, and out of reach of children. Store it at room temperature and away from light, excess heat and moisture (not in the bathroom). Dispose of unneeded medications in a way so that pets, children, and other people cannot take them. Do not flush this medication down the toilet. Use a medicine take-back program. Talk to your pharmacist about take-back programs in your community. Visit the FDA's Safe Disposal of Medicines website https://goo.gl/c4Rm4p for more information. Keep all medication out of sight and reach of children as many containers are not child-resistant. Always lock safety caps. Place the medication in a safe location - one that is up and away and out of their sight and reach. https://www.upandaway.org What should I do in case of OVERDOSE? In case of overdose, call the poison control helpline at . Information is also available online at https://www.poisonhelp.org/help. If the victim has collapsed, had a seizure, has trouble breathing, or can't be awakened, immediately call emergency services at 911. Symptoms of overdose may include the following: ? drowsiness ? agitation ? aggression ? decreased consciousness or loss of consciousness (coma) ? difficulty breathing What OTHER INFORMATION should I know? Keep all appointments with your doctor. If an or child younger than 4 years of age receives levetiracetam, your doctor will check their blood pressure regularly. Do not let anyone else take your medication. Ask your pharmacist any questions you have about refilling your prescription. Keep a written list of all of the prescription and nonprescription (qsyc-xdj-[id number]) medicines, vitamins, minerals, and dietary supplements you are taking. Bring this list with you each time you visit a doctor or if you are admitted to the hospital. You should carry the list with you in case of emergencies. Brand Name(s): ? Elepsia? XR ? Keppra? ? Keppra? XR ? Spritam? also available generically This report on medications is for your information only, and is not considered individual patient advice. Because of the changing nature of drug information, please consult your physician or pharmacist about specific clinical use. The [employer] represents that the information provided hereunder was formulated with a reasonable standard of care, and in conformity with professional standards in the field. The [employer] makes no representations or warranties, express or implied, including, but not limited to, any implied warranty of merchantability and/or fitness for a particular purpose, with respect to such information and specifically disclaims all such warranties. Users are advised that decisions regarding drug therapy are complex medical decisions requiring the independent, informed decision of an appropriate health healthcare administration intern, and the information is provided for informational purposes only. The entire monograph for a drug should be reviewed for a thorough understanding of the drug's actions, uses and side effects. The [employer] does not endorse or recommend the use of any drug. The information is not a substitute for medical care. AHFS? Patient Medication Information?. ? Copyright, 2023. [employer]?, [address], [address], [place], [place]. All Rights Reserved. Duplication for commercial use must be authorized by [facility]. Selected Revisions: March 21, 2024. AHFS? Patient Medication Information?. ? Copyright, 2024 Vasquezneridoni [id number] 11:32:05 Images from the original note were not included. [id number] Gabapentin WHY is this medicine prescribed? Gabapentin capsules, tablets, and oral solution are used along with other medications to help control certain types of seizures in people who have epilepsy. Gabapentin capsules, tablets, and oral solution are also used to relieve the pain of postherpetic neuralgia (PHN; the burning, stabbing pain or aches that may last for months or years after an attack of shingles). Gabapentin extended-release tablets (Horizant) are used to treat restless legs syndrome (RLS; a condition that causes discomfort in the legs and a strong urge to move the legs, especially at night and when sitting or lying down). Gabapentin is in a class of medications called anticonvulsants. Gabapentin treats seizures by decreasing abnormal excitement in the brain. Gabapentin relieves the pain of PHN by changing the way the body senses pain. It is not known exactly how gabapentin works to treat restless legs syndrome. HOW should this medicine be used? Gabapentin comes as a capsule, a tablet, an extended-release (long-acting) tablet, and an oral solution (liquid) to take by mouth. Gabapentin capsules, tablets, and oral solution are usually taken with a full glass of water (8 ounces [240 milliliters]), with or without food, three times a day. These medications should be taken at evenly spaced times throughout the day and night; no more than 12 hours should pass between doses. The extended-release tablet (Horizant) is taken with food once daily at about 5 PM. Follow the directions on your prescription label carefully, and ask your doctor or pharmacist to explain any part you do not understand. Take gabapentin exactly as directed. Do not take more or less of it or take it more often than prescribed by your doctor. Gabapentin extended-release tablets cannot be substituted for another type of gabapentin product. Be sure that you receive only the type of gabapentin that was prescribed by your doctor. Ask your pharmacist if you have any questions about the type of gabapentin you were given. Swallow the extended-release tablets whole; do not cut, chew, or crush them. If your doctor tells you to take one-half of a regular tablet as part of your dose, carefully split the tablet along the score keaton. Use the other half-tablet as part of your next dose. Properly dispose of any half-tablets that you have not used within several days of breaking them. If you are taking gabapentin to control seizures or PHN, your doctor will probably start you on a low dose of gabapentin and gradually increase your dose as needed to treat your condition. If you are taking gabapentin to treat PHN, tell your doctor if your symptoms do not improve during your treatment. Gabapentin may help to control your condition but will not cure it. Continue to take gabapentin even if you feel well. Do not stop taking gabapentin without talking to your doctor, even if you experience side effects such as unusual changes in behavior or mood. If you suddenly stop taking gabapentin tablets, capsules, or oral solution, you may experience withdrawal symptoms such as anxiety, difficulty falling asleep or staying asleep, nausea, pain, and sweating. If you are taking gabapentin to treat seizures and you suddenly stop taking the medication, you may experience seizures more often. Your doctor may decrease your dose gradually over at least a week. Your doctor or pharmacist will give you the [employer] professor's patient information sheet (Medication Guide) when you begin treatment with gabapentin and each time you refill your prescription. Read the information carefully and ask your doctor or pharmacist if you have any questions. You can also visit the Food and Drug Administration (FDA) website (https://www.fda.gov/Drugs) or the [employer] professor's website to obtain the Medication Guide. Are there OTHER USES for this medicine? Gabapentin is also sometimes used to relieve the pain of diabetic neuropathy (numbness or tingling due to nerve damage in people who have diabetes), and to treat and prevent hot flashes (sudden strong feelings of heat and sweating) in women who are being treated for breast cancer or who have experienced menopause (''change of life'', the end of monthly menstrual periods). Talk to your doctor about the risks of using this medication for your condition. This medication may be prescribed for other uses; ask your doctor or pharmacist for more information. What SPECIAL PRECAUTIONS should I follow? Before taking gabapentin, ? tell your doctor and pharmacist if you are allergic to gabapentin, any other medications, or any of the inactive ingredients in the type of gabapentin you plan to take. Ask your pharmacist for a list of the inactive ingredients. ? you should know that gabapentin is available in different forms that may be prescribed for different uses. Ask your doctor to be sure that you are not taking more than one product that contains gabapentin. ? tell your doctor and pharmacist what prescription and nonprescription medications, vitamins, nutritional supplements, and herbal products you are taking or plan to take while taking gabapentin. Your doctor may need to change the doses of your medications or monitor you carefully for side effects. ? if you are taking antacids such as Maalox or Mylanta, take them at least 2 hours before you take gabapentin tablets, capsules, or solution. ? the following nonprescription products may interact with gabapentin: nonsteroidal anti-inflammatory drugs (NSAIDS) such as ibuprofen (Advil, Motrin, others) and naproxen (Aleve). Be sure to let your doctor and pharmacist know that you are taking these medications before you start taking gabapentin. Do not start any of these medications while taking gabapentin without discussing with your healthcare provider. ? tell your doctor if you have or have ever had lung or kidney disease. If you will be taking the extended-release tablets, also tell your doctor if you need to sleep during the day and stay awake at night. ? tell your doctor if you are , plan to become , or are breast-feeding. If you become while taking gabapentin, call your doctor. ? if you are having surgery, including dental surgery, tell the doctor or dentist that you are taking gabapentin. ? you should know that this medication may make you drowsy or dizzy, may slow your thinking, and may cause loss of coordination. Do not drive a car or operate machinery until you know how this medication affects you, and your doctor agrees that it is safe for you to begin these activities. ? if you are giving gabapentin to your child, you should know that your child's behavior and mental abilities may change while he or she is taking gabapentin. Your child may have sudden changes in mood, become hostile or hyperactive, have difficulty concentrating or paying attention, or be drowsy or clumsy. Have your child avoid activities that could be dangerous, such as riding a bicycle, until you know how gabapentin affects him or her. ? remember that alcohol can add to the drowsiness caused by this medication. ? you should know that your mental health may change in unexpected ways and you may become suicidal (thinking about harming or killing yourself or planning or trying to do so) while you are taking gabapentin for the treatment of epilepsy, mental illness, or other conditions. A small number of adults and children 5 years of age and older (about 1 in 500 people) who took anticonvulsants such as gabapentin to treat various conditions during clinical studies became suicidal during their treatment. Some of these people developed suicidal thoughts and behavior as early as one week after they started taking the medication. There is a risk that you may experience changes in your mental health if you take an anticonvulsant medication such as gabapentin, but there may also be a risk that you will experience changes in your mental health if your condition is not treated. You and your doctor will decide whether the risks of taking an anticonvulsant medication are greater than the risks of not taking the medication. You, your family, or your caregiver should call your doctor right away if you experience any of the following symptoms: panic attacks; agitation or restlessness; new or worsening irritability, anxiety, or depression; acting on dangerous impulses; difficulty falling or staying asleep; aggressive, angry, or violent behavior; joseline (frenzied, abnormally excited mood); talking or thinking about wanting to hurt yourself or end your life; withdrawing from friends and family; preoccupation with and dying; giving away prized possessions; or any other unusual changes in behavior or mood. Be sure that your family or caregiver knows which symptoms may be serious so they can call the doctor if you are unable to seek treatment on your own. What SPECIAL DIETARY instructions should I follow? Unless your doctor tells you otherwise, continue your normal diet. What should I do IF I FORGET to take a dose? If you forget to take gabapentin capsules, tablets, or oral solution, take the missed dose as soon as you remember it. However, if it is almost time for the next dose or if you forget to take gabapentin extended-release tablets, skip the missed dose and continue your regular dosing schedule. Do not take a double dose to make up for a missed one. What SIDE EFFECTS can this medicine cause? Some side effects may be serious. If you experience any of the following symptoms, call your doctor immediately: ? rash ? itching ? swelling of the face, throat, tongue, lips, or eyes ? hoarseness ? difficulty swallowing or breathing ? seizures ? difficulty breathing; bluish-tinged skin, lips, or fingernails; confusion; or extreme sleepiness Gabapentin may cause other side effects. Call your doctor if you have any unusual problems while taking this medication. If you experience a serious side effect, you or your doctor may send a report to the Food and Drug Administration's (FDA) MedWatch Adverse Event Reporting program online (https://www.fda.gov/Safety/MedWatch) or by phone ( ). What should I know about STORAGE and DISPOSAL of this medication? Keep this medication in the container it came in, tightly closed, and out of reach of children. Store the tablets, extended-release tablets, and capsules at room temperature, away from excess heat and moisture (not in the bathroom). Store the oral solution in the refrigerator. Keep all medication out of sight and reach of children as many containers are not child-resistant. Always lock safety caps. Place the medication in a safe location - one that is up and away and out of their sight and reach. https://www.upandaway.org Dispose of unneeded medications in a way so that pets, children, and other people cannot take them. Do not flush this medication down the toilet. Use a medicine take-back program. Talk to your pharmacist about take-back programs in your community. Visit the FDA's Safe Disposal of Medicines website https://goo.gl/c4Rm4p for more information. What should I do in case of OVERDOSE? In case of overdose, call the poison control helpline at . Information is also available online at https://www.poisonhelp.org/help. If the victim has collapsed, had a seizure, has trouble breathing, or can't be awakened, immediately call emergency services at 911. Symptoms of overdose may include the following: ? double vision ? slurred speech ? drowsiness ? diarrhea What OTHER INFORMATION should I know? Keep all appointments with your doctor. Before having any laboratory test, tell your doctor and the laboratory personnel that you are taking gabapentin. If you use a dipstick to test your urine for protein, ask your doctor which product you should use while taking this medication. Do not let anyone else take your medication. Ask your pharmacist any questions you have about refilling your prescription. Keep a written list of all of the prescription and nonprescription (psfr-npl-ccpsvei) medicines, vitamins, minerals, and dietary supplements you are taking. Bring this list with you each time you visit a doctor or if you are admitted to the hospital. You should carry the list with you in case of emergencies. Brand Name(s): ? Gralise? ? Horizant? ? Neurontin? also available generically This report on medications is for your information only, and is not considered individual patient advice. Because of the changing nature of drug information, please consult your physician or pharmacist about specific clinical use. The [employer] represents that the information provided hereunder was formulated with a reasonable standard of care, and in conformity with professional standards in the field. The [employer] makes no representations or warranties, express or implied, including, but not limited to, any implied warranty of merchantability and/or fitness for a particular purpose, with respect to such information and specifically disclaims all such warranties. Users are advised that decisions regarding drug therapy are complex medical decisions requiring the independent, informed decision of an appropriate health healthcare administration intern, and the information is provided for informational purposes only. The entire monograph for a drug should be reviewed for a thorough understanding of the drug's actions, uses and side effects. The [employer] does not endorse or recommend the use of any drug. The information is not a substitute for medical care. AHFS? Patient Medication Information?. ? Copyright, 2023. The [employer]?, [address], [address], [place], [place]. All Rights Reserved. Duplication for commercial use must be authorized by [facility]. Selected Revisions: April 15, 2020. AHFS? Patient Medication Information?. ? Copyright, 2024 [facility]2025-10-03 11:32:01 Images from the original note were not included. [id number] Hydralazine WHY is this medicine prescribed? Hydralazine is used to treat high blood pressure. Hydralazine is in a class of medications called vasodilators. It works by relaxing the blood vessels so that blood can flow more easily through the body. High blood pressure is a common condition and when not treated, can cause damage to the brain, heart, blood vessels, kidneys and other parts of the body. Damage to these organs may cause heart disease, a heart attack, heart failure, stroke, kidney failure, loss of vision, and other problems. In addition to taking medication, making lifestyle changes will also help to control your blood pressure. These changes include eating a diet that is low in fat and salt, maintaining a healthy weight, exercising at least 30 minutes most days, not smoking, and using alcohol in moderation. HOW should this medicine be used? Hydralazine comes as a tablet to take by mouth. It usually is taken two to four a day. Take hydralazine at around the same times every day. Follow the directions on your prescription label carefully, and ask your doctor or pharmacist to explain any part you do not understand. Take hydralazine exactly as directed. Do not take more or less of it or take it more often than prescribed by your doctor. Hydralazine controls high blood pressure but does not cure it. Continue to take hydralazine even if you feel well. Do not stop taking hydralazine without talking to your doctor. Are there OTHER USES for this medicine? Hydralazine is also used after heart valve replacement and in the treatment of heart failure. Talk to your doctor about the possible risks of using this medication for your condition. This medication is sometimes prescribed for other uses; ask your doctor or pharmacist for more information. What SPECIAL PRECAUTIONS should I follow? Before taking hydralazine, ? tell your doctor and pharmacist if you are allergic to hydralazine, aspirin, tartrazine (a yellow dye in some processed foods and medications), any other medications, or any of the ingredients in hydralazine tablets. Ask your pharmacist for a list of the ingredients. ? tell your doctor and pharmacist what prescription and nonprescription medications, vitamins, nutritional supplements, and herbal products you are taking or plan to take while taking hydralazine. Your doctor may need to change the doses of your medications or monitor you carefully for side effects. ? tell your doctor if you have ever had a heart attack, or have coronary artery disease, rheumatic heart disease, or heart, kidney or liver disease. ? tell your doctor if you are , plan to become , or are breast-feeding. If you become while taking hydralazine, call your doctor. ? if you are having surgery, including dental surgery, tell the doctor or dentist that you are taking hydralazine. ? ask your doctor about the safe use of alcohol while you are taking hydralazine. Alcohol can make the side effects from hydralazine worse. What SPECIAL DIETARY instructions should I follow? Take hydralazine with meals or a snack. Your doctor may prescribe a low-salt or low-sodium diet. Follow these directions carefully. What should I do IF I FORGET to take a dose? Take the missed dose as soon as you remember it. However, if it is almost time for the next dose, skip the missed dose and continue your regular dosing schedule. Do not take a double dose to make up for a missed one. What SIDE EFFECTS can this medicine cause? Some side effects can be serious. If you experience any of the following symptoms, call your doctor immediately: ? fainting ? joint or muscle pain ? fever ? rapid heartbeat ? chest pain ? swollen ankles or feet ? numbing or tingling in hands or feet If you experience a serious side effect, you or your doctor may send a report to the Food and Drug Administration's (FDA) MedWatch Adverse Event Reporting program online (https://www.fda.gov/Safety/MedWatch) or by phone ( ). What should I know about STORAGE and DISPOSAL of this medication? Keep this medication in the container it came in, tightly closed, and out of reach of children. Store at room temperature and away from excess heat and moisture (not in the bathroom). Dispose of unneeded medications in a way so that pets, children, and other people cannot take them. Do not flush this medication down the toilet. Use a medicine take-back program. Talk to your pharmacist about take-back programs in your community. Visit the FDA's Safe Disposal of Medicines website https://goo.gl/c4Rm4p for more information. Keep all medication out of sight and reach of children as many containers are not child-resistant. Always lock safety caps. Place the medication in a safe location - one that is up and away and out of their sight and reach. https://www.upandaway.org What should I do in case of OVERDOSE? In case of overdose, call the poison control helpline at . Information is also available online at https://www.poisonhelp.org/help. If the victim has collapsed, had a seizure, has trouble breathing, or can't be awakened, immediately call emergency services at 291. What OTHER INFORMATION should I know? Keep all appointments with your doctor and the laboratory. Your blood pressure should be checked regularly to determine your response to hydralazine. Your doctor may ask you to check your blood pressure daily. Ask your doctor or pharmacist to teach you how. Do not let anyone else take your medication. Ask your pharmacist any questions you have about refilling your prescription. Keep a written list of all of the prescription and nonprescription ([id number]-[id number]-[id number]) medicines, vitamins, minerals, and dietary supplements you are taking. Bring this list with you each time you visit a doctor or if you are admitted to the hospital. You should carry the list with you in case of emergencies. Brand Name(s): ? Apresoline? ? Dralzine? ? Apresazide? (as a combination product containing Hydralazine, Hydrochlorothiazide)? ? Apresoline-Esidrix? (as a combination product containing Hydralazine, Hydrochlorothiazide)? ? BiDil? (as a combination product containing Hydralazine, Isosorbide Dinitrate) ? Dralserp? (as a combination product containing Hydralazine, Reserpine)? ? Hydra-Zide? (as a combination product containing Hydralazine, Hydrochlorothiazide) ? Hydrap-ES? (as a combination product containing Hydralazine, Hydrochlorothiazide, Reserpine)? ? Marpres? (as a combination product containing Hydralazine, Hydrochlorothiazide, Reserpine)? ? Ser-Ap-Es? (as a combination product containing Hydralazine, Hydrochlorothiazide, Reserpine)? ? Serathide? (as a combination product containing Hydralazine, Hydrochlorothiazide, Reserpine)? ? Serpazide? (as a combination product containing Hydralazine, Hydrochlorothiazide, Reserpine)? ? Serpex? (as a combination product containing Hydralazine, Hydrochlorothiazide, Reserpine)? ? Unipres? (as a combination product containing Hydralazine, Hydrochlorothiazide, Reserpine)? also available generically ? This branded product is no longer on the market. Generic alternatives may be available. This report on medications is for your information only, and is not considered individual patient advice. Because of the changing nature of drug information, please consult your physician or pharmacist about specific clinical use. The [employer] represents that the information provided hereunder was formulated with a reasonable standard of care, and in conformity with professional standards in the field. The [employer] makes no representations or warranties, express or implied, including, but not limited to, any implied warranty of merchantability and/or fitness for a particular purpose, with respect to such information and specifically disclaims all such warranties. Users are advised that decisions regarding drug therapy are complex medical decisions requiring the independent, informed decision of an appropriate health healthcare administration intern, and the information is provided for informational purposes only. The entire monograph for a drug should be reviewed for a thorough understanding of the drug's actions, uses and side effects. The [employer] does not endorse or recommend the use of any drug. The information is not a substitute for medical care. AHFS? Patient Medication Information?. ? Copyright, 2023. The [employer]?, [address], [address], [place], [place]. All Rights Reserved. Duplication for commercial use must be authorized by [facility]. Selected Revisions: May 16, 2017. AHFS? Patient Medication Information?. ? Copyright, 2024 H Catherine [id number] 11:31:12 Images from the original note were not included. [id number] What Is a Subdural Hematoma? A subdural hematoma is a buildup of blood in a space between the layers of tissue that surround your brain. Your brain sits inside your bony skull. Inside your skull are several layers, called the meninges. These layers cover and protect the brain. The layer just inside the skull is called the dura mater, or dura. It's a tough, fibrous layer of tissue. On the inside of the dura is a layer called the arachnoid. When blood builds up between these layers, it can cause severe problems. A subdural hematoma is a medical emergency. Call 911 This condition is a medical emergency. Call 911 if you have the symptoms listed below. What causes a subdural hematoma? The most common cause is a head injury. This may be from a fall, a car crash, a sports injury, or a violent attack. The sudden impact can damage the blood vessels inside the dura. This causes them to rip and bleed. Small arteries may break in the subdural space. In some people, the brain shrinks. This is often from aging. The subdural space gets bigger. This can make the blood vessels more likely to break. Another cause is taking medicine to prevent blood clots. These include warfarin, aspirin, and other blood thinners. Rare causes include leaking of cerebrospinal fluid, a tumor, or rupture of a weak part of a blood vessel (cerebral aneurysm). Symptoms of a subdural hematoma It may cause symptoms right away. Or it may grow slowly and cause symptoms weeks later. Symptoms may include: ? A headache. ? Nausea or vomiting. ? Loss of consciousness. ? Confusion. ? Dizziness. ? Balance or walking problems. ? Speech problems. ? Vision problems. ? Sleepiness. ? Weakness or numbness that may come and go. ? Seizures. Treating a subdural hematoma The most common treatment is surgery. This helps to relieve the pressure on the brain. There are two surgeries used to treat hematomas. The surgeon can: ? Drill a hole in the skull to allow the blood to drain (stan hole). ? Cut a flap of skull open to remove the blood (craniotomy). If the subdural hematoma is small, your doctor may not do surgery right away. Instead, they may closely watch it. In this case, you will likely stay in the hospital. You may: ? Have repeated CT scans to watch the hematoma. ? Have a tube (catheter) inserted in your head to measure your intracranial pressure. ? Take medicines to control symptoms. ? Need to stop blood-thinner medicine. ? Get vitamin K therapy to reverse the effects of some blood-thinner medicines. Last Reviewed Date: 2025 00:00:00 ? [id number] [employer]. All rights reserved. This information is not intended as a substitute for professional medical care. Always follow your healthcare professional's instructions. [facility] [id number] 11:31:09 Images from the original note were not included. What is a Hemorrhagic Stroke? - Video Watch what happens in the brain during a hemorrhagic stroke, its symptoms, and the importance of calling 911 if you think someone may be having a stroke. To view the video go to this web address: [email or web address] Or, scan this QR code with your smart phone ? [facility] [id number] 11:30:58 Images from the original note were not included. [id number] Stroke: Taking Medicines Your healthcare provider has given you medicines to reduce the risk of a stroke. For them to be most effective, take them as prescribed. This sheet explains why and how to take your medicines. How your medicines help you ? They make you feel better so you can do more things you enjoy. ? They keep your blood from clotting, which helps to prevent stroke. Types of medicines Many types of medicines can help prevent stroke. You may be prescribed 1 or more of these: ? Blood-thinner (anticoagulant) medicines help prevent blood clots from forming. If you take a blood thinner, you may need regular blood tests. ? Antiplatelets such as aspirin or clopidogrel are prescribed for many people who have had a stroke. They make blood clots less likely to form. Aspirin is available over the counter. ? Blood pressure medicines help lower high blood pressure. You may need to take more than 1 blood pressure medicine. ? Cholesterol-lowering medicines make plaque less likely to build up in your artery mix, which can decrease the risk for stroke. ? Heart medicines can treat certain heart problems that increase your risk for stroke. ? Diabetes medicines adjust blood sugar levels. This can prevent problems that lead to stroke. Know which medicines you take To help keep my blood from clotting, I take: To keep my blood pressure lower so it?s easier for my heart to pump, I take: Tips for taking medicines Below are tips for taking medicine. Keep in mind that most medicines need to be taken every day. This means even when you feel fine. Ask your provider if you need to stay away from certain foods or alcohol. Also tell your provider if you have problems affording medicine. ? Have a routine. Take medicine at the same time each day. Use reminders to help stay on track. Some people find using a pill box to organize medicines helpful for this. ? Take all your medicines. Some work best when used with others. Don?t take 1 type and skip another. ? Plan ahead. Refill prescriptions before they run out. Be sure to take medicines along if you travel. ? Never change your dosage or stop taking medicine on your own. And if you miss a pill, don?t take 2 the next time. ? Tell your provider if any medicines cause side effects. Your provider may change your dose or prescribe a new medicine. ? Carry a list of your medicines. Bring the list to appointments with your providers. Be sure to refill prescriptions before they run out. For family and friends Medicines can play a vargas role in preventing stroke. This is especially true for people who have already had a stroke or transient ischemic attack (TIA). To provide support: ? Make sure your loved one knows how the medicines work and when to take them. Check often to make sure they?re taken as directed. ? Know if any medicine reacts with certain foods or alcohol. ? Watch for side effects. Call the provider if any medicine causes excess bruising, nosebleeds, dizziness, or blurred vision. When to call your healthcare provider Contact your provider right away if you: ? Have side effects, such as dizziness, nausea, muscle cramps, headache, coughing, swelling, or a skin rash. ? Are gaining weight. ? Miss a dose of any of your medicines for a prolonged length of time. Last Reviewed Date: 2024 00:00:00 ? 2936-2001 [employer]. All rights reserved. This information is not intended as a substitute for professional medical care. Always follow your healthcare professional's instructions. isa Dorene [id number] 11:30:55 Images from the original note were not included. 22634 What Is Ischemic Stroke? The brain needs a constant supply of blood to work. During a stroke, blood stops flowing to part of the brain. The affected area is damaged. Its functions are harmed or even lost. Most strokes are caused by a blockage in a blood vessel that supplies the brain. This is an ischemic stroke. They can also occur if a blood vessel in the brain ruptures (hemorrhagic stroke). The carotids are large arteries that carry blood from the heart to the brain. From the heart to the brain The heart is a pump. It sends oxygen-rich blood out through blood vessels called arteries. If an artery between the heart and the brain is blocked, the brain can?t get enough oxygen. Some artery blockages are caused by fatty deposits (plaque). Arteries can also be blocked by blood clots. Some clots form on the plaque. Others can form in the heart--especially in people with atrial fibrillation, an irregular heart rhythm. If a piece of plaque or clot breaks off and enters the bloodstream, it can block flow to the brain and cause a stroke. How a stroke occurs Ischemic stroke occurs when an artery that supplies the brain is greatly narrowed or blocked. This can be caused by a buildup of plaque. It can also occur when small pieces of plaque or blood clot (emboli) break off from the blood vessel or heart into the bloodstream. The emboli flow in the blood until they get stuck in a small blood vessel that limits blood flow to the brain. Healthy arteries. In a healthy artery, the lining of the artery wall is smooth. This lets blood flow freely from the heart to the rest of the body. The brain gets all the blood it needs to function well. Damaged arteries. High blood pressure, cigarette smoking, high cholesterol, or other problems can roughen artery mix. This allows plaque to build up in the mix. Blood clots may also form on the plaque. This can narrow the artery and limit blood flow. Healthy arteries Damaged arteries Know the symptoms of a stroke ? Weakness. You may feel a sudden weakness, tingling, or a loss of feeling on one side of your face or body including your arm or leg. ? Vision problems. You may have sudden double vision or trouble seeing in one or both eyes. ? Speech problems. You may have sudden trouble talking, slurred speech, or problems understanding others. ? Movement problems. You may have sudden trouble walking, dizziness, a feeling of spinning, a loss of balance, a feeling of falling, or blackouts. Remember: If you have any of these symptoms, call 911 and your doctor as soon as possible. B.E. F.A.S.T. is an easy way to remember the signs of a stroke. When you see the signs, you will know what you need to call 911 fast. B.E. F.A.S.T. stands for: ? B is for balance. Sudden loss of balance or coordination. ? E is for eyes. Vision changes in one or both eyes. ? F is for face drooping. One side of the face is drooping or numb. When the person smiles, the smile is uneven. ? A is for arm weakness. One arm is weak or numb. When the person lifts both arms and the same time, one arm may drift downward. ? S is for speech difficulty. You may notice slurred speech or trouble speaking. The person can't repeat a simple sentence correctly when asked. ? T is for time to call 911. If someone shows any of these symptoms, even if they go away, call 911 right away. Make note of the time the symptoms first appeared. Last Reviewed Date: 2024 00:00:00 ? [id number] [employer]. All rights reserved. This information is not intended as a substitute for professional medical care. Always follow your healthcare professional's instructions. [facility]2025-10-03 08:00:00 The patient is Moderately Stable - Low risk of patient condition declining or worsening The patient's goals for the shift include bp control The clinical goals for the shift include sbp<160 Over the shift, the patient did not make progress toward the following goals. Barriers to progression include patient sometimes worries about a lot of different things. Recommendations to address these barriers include round on patient often. [facility]2025-10-02 08:00:00 The patient is Moderately Unstable - Medium risk of patient condition declining or worsening The patient's goals for the shift include no falls The clinical goals for the shift include no falls Over the shift, the patient did not make progress toward the following goals. Barriers to progression include patient is sometimes weak when she gets up. Recommendations to address these barriers include round on patient often. [facility]2025-10-02 05:00:56 Problem: Pain - Adult Goal: Verbalizes/displays adequate comfort level or baseline comfort level Outcome: Progressing Problem: Safety - Adult Goal: Free from fall injury Outcome: Progressing Problem: Chronic Conditions and Co-morbidities Goal: Patient's chronic conditions and co-morbidity symptoms are monitored and maintained or improved Outcome: Progressing Problem: Neurological Deficit Goal: Neurological status is stable or improving Outcome: Progressing Goal: Maintain vital signs within ordered limits Outcome: Progressing Goal: Oxygenation goal greater than 94% Outcome: Progressing Problem: Communication Impairment Goal: Ability to express needs and understand communication Outcome: Progressing Problem: Nutrition Goal: Nutritional status is improving Outcome: Progressing [facility]2025-10-01 06:48:05 The patient is Moderately Unstable - Medium risk of patient condition declining or worsening The patient's goals for the shift include The clinical goals for the shift include Over the shift, the patient did not make progress toward the following goals. Barriers to progression include High BP. Recommendations to address these barriers include BP management. Problem: Chronic Conditions and Co-morbidities Goal: Patient's chronic conditions and co-morbidity symptoms are monitored and maintained or improved Outcome: Not Progressing [facility]2025-09-29 15:29:22 The patient is Moderately Stable - Low risk of patient condition declining or worsening The patient's goals for the shift include The clinical goals for the shift include Over the shift, the patient did make progress. Pt walked with PT/OT. Problem: Pain - Adult Goal: Verbalizes/displays adequate comfort level or baseline comfort level Outcome: Ongoing Problem: Safety - Adult Goal: Free from fall injury Outcome: Ongoing Problem: Discharge Planning Goal: Discharge to home or other facility with appropriate resources Outcome: Ongoing Problem: Chronic Conditions and Co-morbidities Goal: Patient's chronic conditions and co-morbidity symptoms are monitored and maintained or improved Outcome: Ongoing [facility]2025-09-28 00:43:49 I assumed care of this patient at shift change from outgoing team. Prior documents, lab results, and imaging were reviewed. Briefly, Madison Man is a 84 y.o. female with PMH of HTN, CVA, dementia presenting as a transfer from [facility] due to witnessed mechanical fall with head hit sustaining 2 subdural hematomas. Neurovascular intact. At mental baseline. AO x 4. Cardene was started for SBP goal 140-160 The patient is pending neurosurgery evaluation ED Course ED Course: as of 08/29/25 0304 [place] Aug 29, [address] BRAIN WO IV CONTRAST 1. Multicompartmental intracranial hemorrhage including a right inferior temporal intraparenchymal hemorrhage, bilateral subdural hematomas, and a right frontal convexity focus of subarachnoid hemorrhage. 2. Questionable punctate foci of lateral ventricle hemorrhage. 3. No midline shift, herniation, or hydrocephalus. 4. Small occipital scalp hematoma. [AY] 0143 Updated neurosurgery. They will review imaging and admit the patient [AY] 0302 Patient admitted to neurosurgery [AY] ED Course: User Index [AY] Onelia Ravi MD Diagnoses as of 08/29/25303 Intraparenchymal hemorrhage of brain SDH (subdural hematoma) (CMS/HCC) Disposition: Patient admitted to the inpatient neurosurgery service for further management. The case was discussed with the admitting team; addressing all labs, diagnostic imaging, and interventions performed in the Emergency Department. The plan for the patient was discussed and all questions addressed. Procedures Procedures EC MDM LOS Details Risk of Management (Admission) Patient to be admitted to the hospital. Clinical Impression Dx: 1. Intraparenchymal hemorrhage of brain 2. SDH (subdural hematoma) (CMS/HCC) This patient was seen and evaluated by me: Onelia Ravi MD Emergency Medicine, PGY-2 This note was dictated with the use of dictation speech recognition software, please use best judgement when interpreting Onelia Ravi MD Resident 08/29/25303 Cosigned by Enrrique Matamoros MD at 09/01/2025 10:57 AM CDT Associated attestation - Enrrique Matamoros MD - 09/01/2025 10:57 AM CDT Teaching Attending Attestation: The patient was seen and examined by me in the presence of, or jointly with, the resident, and I agree with the History/Exam/Medical Decision Making documented unless further documented below. Additionally, I was directly involved in the management of the patient. Impression: 1. Intraparenchymal hemorrhage of brain 2. SDH (subdural hematoma) ([facility]/HCC) Enrrique Matamoros MD [facility]Csqmpoc8765-11-33 00:08:06 [facility]77[facility]31 00:08:06 [facility]neYkeicvg9337-35-92 21:00:00 History of Present Illness: Chief Complaint: Patient presents with Fall HPI Patient is an 84-year-old female with PMH of dementia, CHF, stroke, DM, HTN, CKD presenting as a transfer from [facility] for evaluation by neurosurgery for 2 areas of SDH. Patient family at bedside says that they recently came home from vacation this morning. Upon attempted to enter the house the patient tripped and fell backwards hitting her head against the floor. She presented to outside hospital where CT scans were done confirming 2 areas of subdural bleeding. Patient was transferred for evaluation by neurosurgery. On presentation patient is AOX4. Per family at bedside she is at her neurobaseline. Patient denies any headache, blurry vision, chest pain, shortness of breath, nausea, vomiting. Patient History No past medical history on file. No past surgical history on file. No family history on file. Social History: Tobacco Use Smoking status: Not on file Smokeless tobacco: Not on file Substance Use Topics Alcohol use: Not on file Drug use: Not on file Review of Systems: Review of Systems Per HPI Physical Exam: HENT: Head: Normocephalic. Comments: No hematomas or lacerations Eyes: Extraocular Movements: Extraocular movements intact. Pupils: Pupils are equal, round, and reactive to light. Cardiovascular: Rate and Rhythm: Normal rate and regular rhythm. Heart sounds: Normal heart sounds. Pulmonary: Effort: Pulmonary effort is normal. Breath sounds: Normal breath sounds. Abdominal: General: Abdomen is flat. Palpations: Abdomen is soft. Tenderness: There is no abdominal tenderness. Musculoskeletal: General: Normal range of motion. Cervical back: Normal range of motion. No tenderness. Neurological: General: No focal deficit present. Mental Status: She is alert and oriented to person, place, and time. Cranial Nerves: No cranial nerve deficit. Sensory: No sensory deficit. Motor: No weakness. Comments: Neuro Exam: General: Patient is alert, attentive, and oriented. Speech is clear and fluent. PERRL and there is no facial droop. There is no pronator drift of out-stretched arms. Motor: Muscle bulk and tone are normal. Strength is full bilaterally in UEs and LEs Sensation: SILT in all four extremities. Coordination: No dysmetria on mifpsy-pp-higc Triage Vitals: BP: 147/74, Heart Rate: 98, Temp: 36.7 ?C (98.1 ?F), Resp: 18, SpO2: 98 %, Height: 147.3 cm (4' 10"), Weight: 79.4 kg (175 lb) Last Recorded Vitals: BP: 159/70, Heart Rate: 81, Temp: 36.4 ?C (97.5 ?F), Resp: 17, SpO2: 96 %, Height: 147.3 cm (4' 10"), Weight: 79.4 kg (175 lb) Procedures Performed: Procedures ED Course : ED Course: as of 08/30/25 1448 Sun Aug 29, [address] BRAIN WO IV CONTRAST 1. Multicompartmental intracranial hemorrhage including a right inferior temporal intraparenchymal hemorrhage, bilateral subdural hematomas, and a right frontal convexity focus of subarachnoid hemorrhage. 2. Questionable punctate foci of lateral ventricle hemorrhage. 3. No midline shift, herniation, or hydrocephalus. 4. Small occipital scalp hematoma. [AY] 0143 Updated neurosurgery. They will review imaging and admit the patient [AY] 0302 Patient admitted to neurosurgery [AY] ED Course: User Index [AY] Onelia Ravi MD Diagnoses as of 08/30/25 1448 Intraparenchymal hemorrhage of brain SDH (subdural hematoma) ([facility]) Disposition: Admit/Observation Medical Decision Making Amount and/or Complexity of Data Reviewed Labs: ordered. Radiology: ordered. Decision-making details documented in ED Course. ECG/medicine tests: ordered. Risk Prescription drug management. Decision regarding hospitalization. DDx: ICH, skull fracture, fractures, dislocations, spinal cord injury, solid organ injury On presentation patient is GCS 15 she is at her neurobaseline. She is on Cardene with SBP goal of 140-160 given her 2 areas of SDH. Patient is s/p fall witnessed by family. Outside imaging included CT head that was submitted for over read upon patient arrival. Attempted to call [facility] rwice however did not merchandise pickup/receiving associate. Consult order placed. Stability scan scheduled. On tertiary patient did not have any midline tenderness, abdominal TTP. Further imaging deferred at this time. She had full range of motion of bilateral upper and lower extremities. X-rays deferred. At the time of signout patient was pending neurosurgery final recommendations and likely admission. Patient signed out to the incoming team and all questions were answered. Scoring [employer] MEDICAL DECISION MAKING Complexity of Problems Addressed High: I am concerned about a severe complexity problem which was evidenced by the differential, and associated workup to rule out the severe problem: ICH, skull fracture, fractures, dislocations, spinal cord injury, solid organ injury, which is a acute problem for this patient as evidenced by hx. Complexity of Data Review Category 1: (# Of Data Points) Ordered the following tests: CBC, BMP, TEG, EKG Category 2: (Image/Tracing Interpretation): I contemporaneously during the patient encounter interpreted the following: EKG of the patient and these are my findings: sinus Category 3: (Calender Operator Helper) I consulted and spoke with NSGY about the patient and they stated pending response. Risk of Management (Admission) Patient to be admitted to the hospital. Rosa Isela Mehta MD Resident 08/30/25 1453 Cosigned by Enrrique Matamoros MD at 09/01/2025 10:58 AM CDT Associated attestation - Enrrique Matamoros MD - 09/01/2025 10:58 AM CDT Teaching Attending Attestation: The patient was seen and examined by me in the presence of, or jointly with, the resident, and I agree with the History/Exam/Medical Decision Making documented unless further documented below. Additionally, I was directly involved in the management of the patient. Impression: 1. Intraparenchymal hemorrhage of brain 2. SDH (subdural hematoma) (CMS/HCC) Enrrique Matamoros MD [facility]neTfxyvwq8848-54-93 10:01:07 [facility] patient outcomes placed in providers box. Ginger Garcia 08/04/2025 10:01 AM [facility] CenterVnjlac0948-03-51 10:19:50 Called patients daughter. Rescheduled for this 07/22/2025 Juana Delgado RNMet[facility]Health Par[facility] Medical CenterGwlsle0432-48-61 10:08:32 Daughter is calling to see if the sutures are okay to be removed in August. If it is okay to wait that long . They were not able to attend last scheduled appt due to a family Please contact daughter . She wants to make sure , if not ,requesting to be seen sooner than August Ginger SeoMetroHealth Parma Medical CenterVqrkut8591-88-07 10:01:11 Pt is requesting sooner appt date, is there any day where pt can be OB or are they safe to stay where they are scheduled? Rosa Elena GutierrezMetroHealth Parma Medical CenterChussh5678-61-80 08:37:00 Copied from [facility] #[id number]. Topic: Appointment - Reschedule Appointment >> Jul 20, 2025 8:35 AM Patient [employer] wrote: Patient called to reschedule appointment. Miss 07/19 appointment due to in the family the funereal was on 07/19. Rescheduled for soonest available 08/03. The Patient is coming in for Post Op and suture removal. Could the Patient be seen sooner? Please contact Daughter on chart. Tara GaloMetroHealth Parma Medical CenterWoeatl3511-07-84 16:50:53 Pt discharged with diagnosis of confusion and acute pain of L knee. Printed and verbal instructions reviewed with and given to pt. Pt verbalized understanding of teaching and recommended follow-up. Denies questions or concerns at this time. Pt assisted to POV in WC via ED staff at discharge. Appears in no apparent distress. Accompanied by family. Elizabeth Mccracken [facility] CenterEwyhoi6101-55-53 10:41:41 Pt arrived via WC with daughters [...] in her system too long. Last took [place] at 12am. 1010 pain Rebekah Simmons RNMetroHealth Parma Medical CenterEpwwkv8615-38-33 13:17:02 Addended by: ALONDRA SAAB MD on: 07/05/2025 01:17 PM Modules accepted: Orders [facility] CenterQeqste3407-13-13 09:45:00 BRIEF OPERATIVE NOTE Date of Surgery: 07/05/2025 Surgeons and Role: * Alondra Saab MD - Primary * Kneedler, Bhupendra Hernández MD - Resident - Assisting Pre-Op Diagnosis: Primary osteoarthritis of left knee [M17.12] Pre-op testing [Z01.818] Post-Op Diagnosis Codes: * Primary osteoarthritis of left knee [M17.12] * Pre-op testing [Z01.818] Procedures: Procedure(s) (LRB): TOTAL KNEE ARTHROPLASTY (Left) CPT: 28352, Any Complications Encounters: 0 Estimated Blood Loss: min Specimens Removed: * No specimens in log * Implant Name Type Inv. Item Serial No. Lav Crewman Lot No. LRB No. Used Action CEMENT BONE PALACOS R PRO 80 STERIL LF DISP #[id number] - SN/A Cement CEMENT BONE PALACOS R PRO 80 STERIL LF DISP #[id number] N/A [employer] [id number] Left 1 Implanted BEARING TIBIAL 10 X 63/67 MM #[id number] - SN/A Joint Prosthesis BEARING TIBIAL 10 X 63/67 MM #[id number] N/A SHEILA [employer]OMET [id number] Left 1 Implanted VANGUARD KNEE SYSTEM 62.5MM LEFT CEMENTED CR FEMORAL INTERLOK N/A [employer] [id number] Left 1 Implanted PLATE TIBIAL CRUCIATE 67 MM #[id number] - SN/A Joint Prosthesis PLATE TIBIAL CRUCIATE 67 MM #[id number] N/A [employer] [id number] Left 1 Implanted COMPONENT PATELLA 32MM LUH 8MM BIOMET #[id number] - SN/A Joint Prosthesis COMPONENT PATELLA 32MM LUH 8MM BIOMET #[id number] N/A SHE[employer]A [employer]ET [id number] Left 1 Implanted Patient's Condition: good Findings: above Any other important information: none Please see dictated operative report for additional detail. [facility] CenterVmgnjs1811-02-18 14:04:56 Called and got fax number F: [phone] Faxed order Juana Delgado RNMetroHealth Parma Medical CenterEchfwu8194-07-81 13:26:43 Copied from [facility] #[id number]. Topic: Clinical - Medical Advice >> Jul 01, 2025 1:24 PM Patient [employer] wrote: Selena, daughter of : Madison Man Clinic Name: Kelli Mata [id number] female / 84 year old (1940) Please fax Rehab Orders to: [facility] [address] [place] [address] Thank You Aniyah CastanoMetroHealth Parma Medical CenterKmfkdh4697-03-38 13:45:00 Summary: ts initiated 06/29/25 DOS 07/05/25 Images from the original note were not included. Venipuncture collection performed by clean technique on the right anticubitus. Total of 1 attempts were made. Slight pressure and a bandage/dressing were applied to the site(s). The patient experienced no complications. The following specimens were processed according to instructions and sent to [facility] laboratories per lab order [...] 2 Urine Culture Aptima tube Other urine [facility] - Cackkx2766-62-48 11:02:04 Your orthopedic surgery procedure is at [facility] on 07/05/25. The address is [address] [place] [address], [phone]. [facility] nursing staff will call you the workday [...] to surgery. Hold morning of surgery. -Phentermine:Alert [facility] Anesthesia -SGLT2 Inhibitors ("gliflozins"): hold three days prior to elective surgery -GLP1A Agonist: stop seven days prior to surgery MAC Cases: Continue ACEs and ARBs Anticoagulants: Other medication Note(s)/Instructions:Instructed to hold losartan the evening before surgery. [...] this time. CB number and availability provided. [place] 806045-07-28 15:43:30 Per provider she does not need to stop her blood pressure medication. Called daughter back and let her know what the provider said. She fully understood. Ginger Garcia 06/28/2025 3:44 PM [facility]2025-07-28 15:30:07 Called patient and she had questions [...] BP medications. Ginger Garcia 06/28/2025 3:33 PM [facility]2025-07-28 14:48:28 Madison Man is a 84 year old female is calling in with questions about surgery that she is having on on Saturday. Please reach out to her at [phone] (home) Thank you! 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 [facility]2024-11-18 13:15:54Upcoming Encounters Health Maintenance Due Date Last [...] age to complete this topic [facility]neOjcbryl3365-84-36 13:15:54 Diagnosis Abnormal foot finding - Prim celina [facility] CleburneFcjxhmc0823-40-05 13:15:54 [facility] CleburneAxmrytq5488-33-31 10:56:00 [facility] ([facility]) Hospitalist Discharge Summary REPORT#:[id number] REPORT STATUS: Signed REPORT INITIALIZATION DATE:08/02/24 TIME: 105 PATIENT: MADISON MAN UNIT #: [id number] [facility] AGE: 83 SEX: F ATTEND: Ronald Ochoa MD ADM AUTHOR: Jhoan Fuentes MD R1 REPT SERVICE DT/TIME: 08/02/24 1056 * ALL edits or amendments must be made on the electronic/computer document * ElsierolandJhoan 08/02/24 1056: General Information Problem List/A P: [...] with the assessment and workup plan. Jhoan Pabon MD [facility] PGY3 Associated exam: GEN: Healthy appearing, well-developed, [...] Extremities: moves all, no cyanosis, no edema Neuro/SCIENTIFIC LINGUIST: alert, oriented X 3, normal speech, no [...] the resident. at 1130 at 0750 RPT #:[id number] END OF REPORTAESXW4456-06-13 11:26:00 [facility] ([facility]) Hospitalist Progress Note REPORT#:[id number] REPORT STATUS: Signed REPORT INITIALIZATION DATE:08/01/24 TIME: 1126 PATIENT: MADISON MAN UNIT #: [id number] ROOM/BED: [address] : [address] AGE: 83 SEX: F [...] Extremities: moves all, no cyanosis, no edema Neuro/SCIENTIFIC LINGUIST: alert, oriented X 3, normal speech, no [...] - 50.0 %) 14.6 L 3.1 L [place] % (Auto) (0.0 - 13.0 %) 5.2 [...] pH (4.6 - 8.0) 5.5 Ur Specific [place] 1.017 Urine Protein (NEGATIVE mg/dl) 70 Urine [...] wall. These findings may reflect the tissue printing mechanist. Please correlate with surgical history to ensure [...] Diverticulosis without evidence of diverticulitis. Impression By: Kevan7 Polo RUIZ M.D. Diagnosis, Assessment Plan Hospital [...] PM to 6 AM please call the [facility] hospitalist on-call. Ronald Ochoa 08/02/24 1105: Attestations Physician Attestation Agree w/findings plan: I have personally reviewed charting, assessment, and plan. At least 50% of the encounter including physical exam was performed by me. I agree with what is documented by the resident. at 1807 at 1105 RPT #:[id number] END OF REPORTAXYTL9774-05-92 17:50:00 [facility] ([facility]) Hospitalist History Physical REPORT#:[id number] REPORT STATUS: Signed REPORT INITIALIZATION DATE:07/31/24 TIME: 1749 PATIENT: MADISON MAN UNIT #: [id number] ROOM/BED: [address] : 39 AGE: 83 SEX: F [...] Extremities: moves all, no cyanosis, no edema Neuro/SCIENTIFIC LINGUIST: abnormal speech, disoriented, alert, no motor deficits [...] (Auto) (16.0 - 50.0 %) 3.1 L [place] % (Auto) (0.0 - 13.0 %) 3.2 [...] pH (4.6 - 8.0) 5.5 Ur Specific [place] 1.017 Urine Protein (NEGATIVE mg/dl) 70 Urine [...] wall. These findings may reflect the tissue printing mechanist. Please correlate with surgical history to ensure this is not a mass. No acute findings of the chest. Impression By: Damian - Jose Sawant MD Diagnosis, Assessment Plan Problem List/A [...] PM to 6 AM please call the [facility] hospitalist on-call. Ronald Ochoa 08/01/24 1115: Attestations Physician Attestation Agree w/findings plan: I have personally reviewed charting, assessment, and plan. At least 50% of the encounter including physical exam was performed by me. I agree with what is documented by the resident. at 1839 at 1116 RPT #:[id number] END OF [id number] 16:31:00 [facility] ([facility]) EMERGENCY PROVIDER REPORT REPORT#:[id number] REPORT STATUS: Signed DATE:07/31/24 TIME: 163 PATIENT: MADISON MAN UNIT #: [id number] ROOM/BED: [place] [address] : 39 AGE: 83 SEX: F PCP [...] pH (4.6 - 8.0) 5.5 Ur Specific [place] 1.017 Urine Protein (NEGATIVE mg/dl) 70 Urine [...] (Auto) (16.0 - 50.0 %) 3.1 L [place] % (Auto) (0.0 - 13.0 %) 3.2 [...] 1604 Blood Culture - ORD BLOOD 07/31 1604 Blood Culture - ORD BLOOD 07/31 1554 Urine Culture - RECD URINE Recent Impressions: RADIOLOGY - XR CHEST 1 V 07/31 1542 Report Impression - Status: SIGNED Entered: 07/31/2024 1612 Impression: Large frontal density over the left midlung zone/breast, with postsurgical changes of the axilla or chest wall. These findings may reflect the tissue printing mechanist. Please correlate with surgical history to ensure [...] No STEMI Rate 87 ECG Q-T-ST - MD Non-specific ST changes Re-Evaluation MDM Free Text [...] 324 MG X1ED STA 07/31 1444 DC 08/ PO 07/31 1445 1503 Electrolytic, Caloric, And Ariana Sig/Mak Start time Last Medication Dose Route Stop Time Status Admin Sodium Chloride 1,000 ML X1ED STA 07/31 1603 AC 08/ IV 07/31 1702 1611 Sodium Chloride 1,000 [...] Hospitalize Hosp Physician Name Ronald Ochoa MD [facility] Physician Hospitalist Request Time 1633 Request Date 07/31/24 )( Accepts Hospitalization Yes )( Reason for Hospitalization encephalopathy, uti )( Accepted Time 1633 )( Accepted Date 07/31/24 Call Information will see patient, agrees with eval, agrees with plan at 1703 RPT #:[id number] END OF [id number] 12:46:29* Zane Mari DPM - 07/27/2024 12:20 PM CDT CHIEF COMPLAINT: INGROWN NAIL, RIGHT HALLUX - resolved 07/27/2024 [facility] HISTORY OF PRESENT ILLNESS: Patient [...] growth Neurological: (+) mixed sensation with 5.07 [employer] monofilament examination to the most distal [...] person has agreed to proceed. [facility]neHnxgwxc5562-36-00 12:46:29Upcoming Encounters Health Maintenance Due Date Last [...] age to complete this topic [facility] CleburneFldpbio9818-56-67 12:46:29 Diagnosis Abnormal foot finding - Prim celina [facility] Cle[facility]neJklrcuq0215-48-89 12:46:29 [place] 844684-08-26 12:46:29* Zane Mari, BRIANNA - 07/27/2024 12:20 PM CDT CHIEF COMPLAINT: INGROWN NAIL, RIGHT HALLUX - resolved 07/27/2024 [facility] HISTORY OF PRESENT ILLNESS: Patient [...] growth Neurological: (+) mixed sensation with 5.07 [employer] monofilament examination to the most distal [...] person has agreed to proceed. Misa [facility] Cle[facility]neHeaderl7952-42-34 12:46:29Upcoming Encounters Health Maintenance Due Date Last [...] topic Meningococcal Vaccine Aged Out No racquel mayrchuy eligible based on patient's age to complete this topic Rotavirus Vaccines Aged Out No longer eligible based on patient's age to complete this topic [place] 87[address]-08-26 12:46:29 Diagnosis Abnormal foot finding - Prim celina [facility]neSrfesep5769-96-43 12:46:29 [place] 844684-08-19 13:05:10 [place] 87[address]-08-19 13:05:10* Zane Mari, BRIANNA - 07/20/2024 11:50 AM CDT CHIEF COMPLAINT: INGROWN NAIL, RIGHT HALLUX [facility] HISTORY OF PRESENT ILLNESS: Patient [...] growth Neurological: (+) mixed sensation with 5.07 [employer] monofilament examination to the most distal [...] legally responsible person has agreed to proceed. [facility]2024-08-19 13:05:10Upcoming Encounters Health Maintenance Due [...] age to complete this topic [facility]neKsswfgz7336-06-19 13:05:10 Diagnosis Abnormal foot finding - Prim celina [facility] CleburneCaljedl1999-71-01 13:05:10 [facility] CleburneDnoqnpc9178-27-68 13:05:10* Zane Mari, [facility] - 07/20/2024 11:50 AM CDT CHIEF COMPLAINT: INGROWN NAIL, RIGHT HALLUX [facility] HISTORY OF PRESENT ILLNESS: Patient [...] growth Neurological: (+) mixed sensation with 5.07 [employer] monofilament examination to the most distal [...] person has agreed to proceed. [facility] [id number] 13:05:10Upcoming Encounters Health Maintenance Due Date Last [...] age to complete this topic [facility]neZttzexi0072-69-82 13:05:10 Diagnosis Abnormal foot finding - Prim celina [facility] CleburneTrmsike2803-14-18 11:37:00 [facility] ([facility]) Brief Op Note REPORT#:[id number] REPORT STATUS: Signed DATE:06/03/23 TIME:1137 PATIENT: MADISON MAN UNIT #: [id number] ROOM/BED: [place] [address] : 39 AGE: 82 SEX: F ATTEND: [...] perineorrhaphy, Urethral bulking and cystoscopy Primary Surgeon: gerson Mobile Application Tester(s): jaylin matos Anesthesia: general anesthesia Findings: 0/0/-1/5/mod/5-6/-1/-2/na, cysto with small ? mass, cysto 3mon postop, likely inflammed area; Bulkamid 1.2ml Complications: none Estimated blood loss in ml's: 100 Specimens removed/altered: none Fluids: 1000 Urine output: 400 Approach: vag at 1140 RPT #: [id number] END OF REPORT [id number] 11:10:[id number] [facility] [address] [place] [address] PATIENT NAME: MADISON MAN ADMIT DATE: 06/03/23 ACCOUNT NO: [id number] ROOM NO: [facility] AGE: 82 REPORT TYPE: OPERATIVE REPORT SEX: [...] Bulkamid and cystoscopy. SURGEON: Vero Ortega MD CATHEAD OPERATOR: Jaylin Matos. ANESTHESIA: General. SPECIMENS: No specimens. COMPLICATIONS: No complications. DRAINS: Bolden catheter, 14-Montenegrin, no vaginal packing. FINDINGS: POP-Q 0, 0, [...] she was cleared by Dr. Eagle, her seat maker. She had a carotid artery stent in [...] anterior and posterior mix was done with usngjr-sl-eeefm 2-0 Vicryl sutures. After doing a running continuous suture of the vault and onto the right lateral wall. The left lateral wall was also closed with the help of continuous running 2-0 and then interrupted 2-0 nkwgya-ev-vazbx sutures in 3 layers to close the anterior and posterior vaginal mix and to make them symmetric. Then, 5 sutures were placed, one djwoty-fm-apedq and 3 horizontal mattress sutures in order to bring the anterior and posterior vaginal epithelial edges together. The flaps were PATIENT NAME: MADISON MAN raised to advance the epithelial edges to take the tension off. Once the closure was done, the [place] retractor needles were removed to inspect the [...] The bladder was drained, opening up to 16-Montenegrin Bolden. The Bolden was removed. Urethral bulking [...] The bulking agent was removed. Then, a 14-Montenegrin Bolden was inserted into the bladder and [...] Date Transcribed: 06/03/2023 14:26:42 EULA/LEONIDES/TALIA/DANIELLE Receipt ID: [id number] Authenticated by Vero Ortega MD On 07/01/2023 05:32:45 PM PATIENT NAME: MADISON MAN at 0532 PATIENT NAME: MADISON MAN 13:12:00 [id number] [address] PATIENT NAME: MADISON MAN ADMIT DATE: 06/03/23 ACCOUNT NO: [id number] ROOM NO: PO8 AGE: 82 REPORT TYPE: eELECTROCARDIOGRAM SEX: F ADMITTING PHYSICIAN: Vero Ortega MD ATTENDING PHYSICIAN: Vero Ortega MD Order: [id number] Test Reason : PRE OP Test Date/Time [...] wave abnormality in Anterior leads Confirmed by LZIZY LOUISE ([id number]) on 06/10/2023 6:00:42 AM Referred By: Vero Ortega Confirmed by:LIZZY LOUISE at 0600 PATIENT NAME: MADISON MAN 10:36:00 [facility] discharge summary report#:[id number] report status: signed date:07/24/22 time: 1036 patient: madison man unit #: [id number] room/bed: [place] [address] : 39 age: 81 sex: f attend: rusty angeles md adm dt: 07/23/22 author: julian gama resource room teacher * all edits or amendments must [...] angeles in 1 to 2 weeks consultants: critical/naval aircrewman mechanical, hospitalist, vascular surgery med rec pcp pcp: [...] hernia. impression by: shirleneabSaroj whitaker m.d. treatments procedures lab: chemistry last [...] 0620 report impression - status: signed entered: 07/24/2022826 impression: no acute abnormality in the chest. large retrocardiac hiatus hernia. impression by: shirleneabSaroj whitaker m.d. discharge instructions pcp pcp: pcp: vikram orr v, md )( discharge to: home/self care discharge instructions additional discharge routines: attending follow-up, performance improvement consultant follow-up, wound/ dressing care )( diet: cardiac )( wound/dressing care: clean wound daily, do not submerge incision, keep wound clean and dry follow-up appointments attending physician: attending physician: rusty angeles md phone: [phone] attending physician follow up timeframe: in 1-2 weeks consulting provider 1: provider 1: bethany eagle md specialty: cardiologyinterventional phone: [phone] consult follow up timeframe: in 1-2 weeks quality: discharge advanced care plan 65 or older discussed with: patient, surrogate decis. maker electronically signed by julian gama np on 07/24/22 at 1433 electronically signed by rusty angeles md on 07/25/22 at 5052 rpt #:[id number] end of [id number] 10:13:00 [facility] critical care progress note report#:[id number] report status: signed date:07/24/22 time: 1013 patient: madison man unit #: [id number] room/bed: [place] [address] : 39 age: 81 sex: f attend: [...] sodium chloride (sodium chloride 0.9%) 1,000 ml .[id number] iv magnesium sulfate (magnesium sulfate 4gm/swfi 100ml) [...] imaging and discussing plans of care with naval aircrewman mechanical, interdisciplinary team orders: procedure date/time status basic metabolic panel 07/24 1400 active ot: pocc - ot staff only 07/24 0843 active eval ot high complex [id number] 07/24 0843 active adl 15 min 07/24 unk complete consultants: critical/naval aircrewman mechanical, hospitalist, vascular surgery code status: full code plan discussed with: patient, family, collaborating md, consultants, nurse, interdisc care team, pharmacy/pharmacist critical care time: minutes: 30 electronically signed by riccardo kendall on 07/24/22 at 1029 rpt #:[id number] end of [id number] 13:16:00 [facility] ([facility]) critical care consult note report#:[id number] report status: signed date:07/23/22 time: 1316 patient: madison man unit #: [id number] room/bed: [place] [address] : 39 age: 81 sex: f attend: rusty angeles md adm dt: 07/23/22 author: riccardo kendall * all edits or amendments must be made on the electronic/computer document * see addendum history of present illness hpi requesting clinician: julian gama resource room teacher reason for consult: icu mgt chief complaint: [...] 250ml) lidocaine hcl 0 .stk-med one 07/23 06 dc (xylocaine) .route lidocaine hcl 0 .stk-med one 07/23 0624 dc (xylocaine iv) iv metoprolol tartrate 6.25 mg once 07/23 06 dc 07/23 (lopressor) po 07/23 08 0600 [...] prn 07/23 0900 ac (dilaudid) iv 07/23 190 hydromorphone hcl 0.5 mg pacu q5min prn prn 07/23 0900 ac (dilaudid) iv 07/23 1900 tramadol hcl 50 mg pacu once 07/23 0900 ckd (ultram) po 07/23 190 fentanyl citrate [...] diagnosis, assessment plan diagnosis, assessment plan consultants: critical/naval aircrewman mechanical plan discussed with: patient, family, collaborating md, [...] imaging and discussing plans of care with naval aircrewman mechanical, interdisciplinary team electronically signed by riccardo kendall on 07/23/22 at 1702 addendum 1: 07/24/22 1139 by riccardo kendall problems: urinary tract infection. electronically signed by riccardo kendall on 07/24/22 at 1140 [facility] #:[id number] end of [id number] 10:57:00 [facility] ([facility]) history physical - adult report#:[id number] report status: signed date:07/23/22 time: 1056 patient: madison man unit #: [id number] room/bed: [place] [address] : 39 age: 81 sex: f attend: rusty angeles md adm dt: 07/23/22 author: julian gama resource room teacher * all edits or amendments must [...] mononitrate 1442 (monoket) strength: 10 mg tab pantoprramos reyes 07/20/22 (protonix) 1443 strength: 20 mg tab atorvastatin (lipitor) 07/20/22 strength: 10 mg tab [...] once 07/23 09 ckd acetaminophen po 07/23 1900 (norco 5/325) hydromorphone hcl 1 mg pacu q10min prn prn 07/23 0900 ac (dilaudid) iv 07/23 1900 hydromorphone hcl 0.5 mg pacu q5min prn prn 07/23 09 ac (dilaudid) iv 07/23 190 tramadol hcl [...] sodium chloride 5 ml asdir prn 07/20 141 dc (sodium chloride) iv 08/19 141 sodium chloride 10 ml asdir prn 07/20 141 dc (sodium chloride) iv 08/19 141 sodium [...] exam extremities: moves all, no edema-all extremities neuro/hospital recruiter: alert, oriented x 3, normal speech, no [...] 07/23 1048 active neurologic check: monitor 07/23 104 active mrsa protocol 07/23 1048 active diet instructions for nursing 07/23 1048 active arterial line care 07/23 1048 active hgb hct 07/23 1048 active basic metabolic panel 07/23 1048 active covid-19 risk assessment 07/23 1048 active critical care physician cons. 07/23 1048 active level of care 07/23 1048 active admit patient (cpoe) 07/23 1048 active consultants: critical/naval aircrewman mechanical free text dxa p notes free text [...] and complications. electronically signed by julian gama resource room teacher on 07/23/22 at 1605 electronically signed by rusty angeles md on 07/24/22 at 0929 rpt #:[id number] end of [id number] 08:40:00 [facility] ([facility]) dt operative note report#:[id number] report status: signed date:07/23/22 time: 839 patient: madison man unit #: [id number] room/bed: : 39 age: 81 sex: f attend: rusty angeles md adm dt: 07/23/22 author: rusty angeles md * all edits or amendments must be made on the electronic/computer document * operative report operative note note: preoperative diagnosis: asymptomatic severe right internal carotid artery stenosis postoperative diagnosis: asymptomatic severe right internal carotid artery stenosis operation: right carotid endarterectomy surgeon: rusty angeles md respiratory therapy assistant: destini forbes anesthesiologist: sonia sosa md [...] angeles md on 07/23/22 at 0843 rpt #:[id number] end of [id number] 13:55:[id number] [place] [address] patient name: madison man admit date: account no: [id number] room no: age: 81 report type: eelectrocardiogram report sex: f admitting physician: attending physician:rusty angeles md order: [id number] test reason : pre op test date/time [...]
--- NOTE | 2025-09-09 11:11 | RAD REPORT ---
EXAMINATION: ONE VIEW CHEST XR CLINICAL INDICATION: DYSPNEA TECHNIQUE: Frontal chest projection is submitted. Examination is limited by patient positioning and t echnique. COMPARISON: 12/12/2024 FINDINGS: The lungs are well inflated and clear. The heart is normal in size. No displaced fractures identified . Axillary dissection clips on the left. IMPRESSION: No acute intrathoracic abnormalities.
[2025-09-09 11:27] LABS: Absolute Lymphocytes (CBC) 0.9 K/uL (0.7-4.9); Hematocrit 33.3 % (36.0-45.0); Hemoglobin 10.8 g/dL (12.0-15.0); MCH 29.7 pg (27.0-35.0); MCHC 32.5 g/dL (32.0-36.0); MCV 91.6 fL (80-100); MPV 8.4 fL (7.6-11.3); Nucleated RBC Absolute Count 0.0 (0-0); Nucleated Red Blood Cells % 0.0 % (0-0); RBC Red Blood Cell Count 3.64 M/uL (3.86-4.86); White Blood Count 9.70 thou/uL (4.3-10.9)
[2025-09-09 11:35] LABS: Anion Gap 13.9 mEq/L (5.0-15.0); BUN Blood Urea Nitrogen 21.0 mg/dL (7-18); Glucose Level 133.0 mg/dL (74-106); Potassium 3.9 mEq/L (3.5-5.1); Troponin High Sensitivity 51.0 pg/mL (<58.9)
--- NOTE | 2025-09-09 11:58 | RAD REPORT ---
EXAMINATION: CT ABDOMEN AND PELVIS WITHOUT CONTRAST CLINICAL INDICATION: ABD PAIN TECHNIQUE: CT abdomen and pelvis was performed, without IV contrast, as per department protocol. Axia l, sagittal and coronal reconstructions were obtained. One or more of the following dose reduction techniques were used: Automated exposure control, adjustment of the mA and kV according to the patien t size, and iterative reconstruction. Unless otherwise specified, incidental findings do not require dedicated imaging follow-up. COMPARISON: 04/29/2025 FINDINGS: The lack of intravenous contrast limits the sensitivity of this exam for evaluation of solid visceral organs, vascular structures, and retroperitoneum. LOWER CHEST: Mild linear atelectasis in the left lung base. Small hiatal hernia. LIVER:Small low-density left lobe lesions are present likely benign cysts. Cholecystectomy clips. SPLEEN: Normal size. No focal lesion. PANCREAS: No mass, ductal dilation, or sera-pancreatic fluid. ADRENALS: Normal; no mass. KIDNEYS AND URETERS: Normal size and contour. No hydronephrosis. 11 mm hyperdense cyst superior pole left kidney. URINARY BLADDER: Normal contour. GASTROINTESTINAL TRACT: No evidence of bowel obstruction, significant free fluid, free air or abscess . Moderate sigmoid diverticulosis coli without diverticulitis. Small fat-containing medical hernia. APPENDIX: Appendix not visualized, but no inflammatory changes in region of appendix. LYMPH NODES: No lymphadenopathy. MUSCULOSKELETAL: Mild multilevel spinal degenerative changes. Mild anterior wedge deformity T12, correctional treatment specialist melody in appearance. ADDITIONAL FINDINGS: Aortoiliac atherosclerosis. IMPRESSION: No acute abnormalities in the abdomen or pelvis, with evaluation limited by lack of IV contrast.
[2025-09-09 13:30] LABS: Sqamous Epithelial None Seen /HPF (None Seen); Urine Crystals Unidentified Few /HPF (None Seen); Urine Culture Reflex Order NOT NEEDED; Urine Microscopic Reflex YN ORDER UMIC
--- NOTE | 2025-09-09 14:04 | ER ---
Nurse's Notes [facility] Name: Madison Cerrato Age: 84 yrs Sex: Female : 1940 Arrival Date: 09/09/2025 Time: 10:00 Bed 3 Private MD: Diagnosis: Abdominal pain, Generalized;Anorexia;Other fatigue Presentation: 09/09 10:17 Chief complaint: Patient's son or daughter states: PT SNE HERE FROM DR. MARIN FOR dd2 STOMACH TENDERNESS AND SHALLOW BREATHING. PT REPORTS STOMACH PAIN GENERALIZED. DAUGHTER REPORTS DECREASE FOOD INTAKE SINCE 09/03/2025 AND NOT "ACTING LIKE HERSELF". RECENT HX OF CVA WITH BRAIN BLEED. Coronavirus screen: At this time, the client does not indicate any symptoms associated with coronavirus-19. Ebola Screen: No symptoms or risks identified at this time. Initial Sepsis Screen: Does the patient meet any 2 criteria? No. Patient's initial sepsis screen is negative. Does the patient have a suspected source of infection? No. Patient's initial sepsis screen is negative. Risk Assessment: Do you want to hurt yourself or someone else? Patient reports no desire to harm self or others. Onset of symptoms was September 03, 2025. 10:17 Method Of Arrival: Wheelchair dd2 10:17 Acuity: JOHN 3 dd2 Triage Assessment: 10:19 General: Appears in no apparent distress. uncomfortable, well groomed, well nourished, dd2 Behavior is calm, cooperative, appropriate for age. Pain: Complains of pain in abdomen. Respiratory: Reports PT HAS NO RESPIRATORY COMPLAINTS Airway is patent Respiratory effort is even, unlabored, Respiratory pattern is regular, symmetrical, Onset: The symptoms/episode began/occurred at an unknown time. the patient reports symptoms have resolved. GI: Abdomen is non-distended, obese, Abd is soft X 4 quads Abdomen is tender to palpation X 4 quads. Reports lower abdominal pain, upper abdominal pain. Historical: - Allergies: 10:19 Codeine; dd2 - PMHx: 10:19 Alzheimer's disease; Congestive heart failure; CVA; Dementia; diabetes mellitus; dd2 Hypercholesterolemia; Hypertensive disorder; kidney disease; - PSHx: 10:19 Cholecystectomy; knee; dd2 - Immunization history:: Adult Immunizations up to date. - Infectious Disease History:: Denies. - Social history:: Smoking status: Patient denies any tobacco usage or history of. Screenin:46 [facility] ED Fall Risk Assessment (Adult) History of falling in the last 3 months, nh2 including since admission Yes- physiologic fall (2 pts) Confusion or Disorientation Yes (5 pts) Intoxicated or Sedated No (0 pts) Impaired Gait No (0 pts) Mobility Assist Device Used Yes (1 pt) Altered Elimination No (0 pt) Score/Fall Risk Level 3 or more points = High Risk Oriented to surroundings, Maintained a safe environment, Educated pt \\T\\ family on fall prevention, incl call for assistance when getting out of bed, Assessed \\T\\ reinforced patient's understanding of fall precautions, Hourly rounding (assess needs \\T\\ fall precautionary measures) done. Abuse screen: Denies threats or abuse. Denies injuries from another. Nutritional screening: No deficits noted. Tuberculosis screening: No symptoms or risk factors identified. Assessment: 10:26 General: Appears uncomfortable, ill, Behavior is cooperative, quiet. Pain: Complains of nh2 pain in abdomen Pain radiates to CHEST Pain currently is 8 out of 10 on a pain scale. Quality of pain is described as aching, Pain began gradually, Is intermittent. Neuro: Level of Consciousness is awake, alert, obeys commands, Oriented to person, place, time, situation, Appropriate for age Customer Experience Associate are equal bilaterally Moves all extremities. Gait is unsteady, Speech is normal, Facial symmetry appears normal, Reports weakness. Cardiovascular: Patient's skin is warm and dry. Rhythm is sinus rhythm. Respiratory: Airway is patent Trachea midline Respiratory effort is even, unlabored, Respiratory pattern is regular, symmetrical, Breath sounds are clear bilaterally. Parent/caregiver reports the patient having shortness of breath on exertion. GI: Abdomen is round non-distended, Bowel sounds present X 4 quads. Abd is soft X 4 quads Abdomen is tender to palpation X 4 quads. : No signs and/or symptoms were reported regarding the genitourinary system. EENT: No signs and/or symptoms were reported regarding the EENT system. Derm: Skin is pink, warm \\T\\ dry. Musculoskeletal: Circulation, motion, and sensation intact. 11:14 Reassessment: pt resting in bed with eyes closed, even and unlabored respirations, and nh2 family at the bedside. no needs or concerns, call light within reach. 11:44 Reassessment: pt transported to CT via stretcher. nh2 12:00 Reassessment: Patient is alert, oriented x 3, equal unlabored respirations, skin nh2 warm/dry/pink. pt back from CT, reconnected to monitor. 12:20 Reassessment: Patient and/or family updated on plan of care and expected duration. Pain nh2 level reassessed. Patient is alert, oriented x 3, equal unlabored respirations, skin warm/dry/pink. 13:20 Reassessment: Patient and/or family updated on plan of care and expected duration. Pain nh2 level reassessed. Patient is alert, oriented x 3, equal unlabored respirations, skin warm/dry/pink. 14:00 Reassessment: Patient and/or family updated on plan of care and expected duration. Pain nh2 level reassessed. Patient is alert, oriented x 3, equal unlabored respirations, skin warm/dry/pink. Patient denies pain at this time. Vital Signs: 10:17 BP 155 / 61; Pulse 78; Resp 16; Temp 97.5(O); Pulse Ox 99% on R/A; Weight 74.39 kg (M); dd2 11:10 BP 141 / 55; Pulse 77; Resp 17; Pulse Ox 99% on R/A; nh2 12:10 BP 157 / 62; Pulse 82; Resp 18; Pulse Ox 100% on R/A; nh2 13:29 BP 160 / 58; Pulse 77; Resp 18; Temp 97.1(TE); Pulse Ox 98% on R/A; nh2 14:22 BP 162 / 66; Pulse 74; Resp 17; Temp 98.1(TE); Pulse Ox 100% on R/A; nh2 ED Course: 10:03 Patient arrived in ED. al6 10:10 Edgar Fuller NP is PHCP. cr8 10:10 Som Esparza DO is Attending Physician. cr8 10:19 Triage completed. dd2 10:19 Arm band placed on right wrist. dd2 10:22 Mendez Orozco Jr, RN is Primary Nurse. nh2 10:30 Client placed on continuous cardiac and pulse oximetry monitoring. NIBP monitoring nh2 applied. rf design engineer on. Pulse ox on. NIBP on. 10:44 EKG done, by ED staff, reviewed by Edgar Fuller NP. nh2 10:46 Patient has correct armband on for positive identification. Placed in gown. Bed in low nh2 position. Call light in reach. Side rails up X2. Provided Education on: using call light for assistance. 10:52 XRAY Chest (1 view) In Process Unspecified. EDMS 11:00 Missed attempt(s): 22 gauge in right wrist. Bleeding controlled, band aid applied, aa5 catheter tip intact. 11:02 Missed attempt(s): 22 gauge in right antecubital area. Bleeding controlled, band aid aa5 applied, catheter tip intact. 11:05 Missed attempt(s): 22 gauge in right forearm. Bleeding controlled, band aid applied, aa5 catheter tip intact. 11:09 Initial lab(s) drawn, by ED staff, sent to lab. aa5 11:10 Door closed. Noise minimized. Warm blanket given. Pillow given. nh2 11:52 CT Abd/Pelvis - Without Contrast In Process Unspecified. EDMS 13:01 Straight cath inserted, using sterile technique, 16 Fr. Specimen obtained. sent to lab aa5 Returned clear yellow urine. 13:29 UA Rfx Amauri Cult if indicated Sent. nh2 14:22 No provider procedures requiring assistance completed. Patient did not have IV access nh2 during this emergency room visit. Administered Medications: No medications were administered Medication: 10:46 VIS not applicable for this client. nh2 Outcome: 14:04 Discharge ordered by MD. tay 14:26 Discharged to home via wheelchair, with family, nh2 14:26 Condition: stable 14:26 Discharge instructions given to patient, family, Instructed on discharge instructions, follow up and referral plans. Demonstrated understanding of instructions, follow-up care, 14:27 Patient left the ED. nh2 Signatures: Dispatcher [employer] EDSD Pebbles Yi RN RN aa5 KELLEN DA SILVA RN RN dd2 Mendez Orozco Jr, RN RN nh2 Karime Vasquez6 Edgar Fuller NP CERTIFIED TRAVEL COUNSELOR cr8 Corrections: (The following items were deleted from the chart) 11:14 10:26 Cardiovascular: Patient's skin is warm and dry. nh2 nh2 11:14 10:26 Respiratory: Airway is patent Trachea midline Respiratory effort is even, nh2 unlabored, Respiratory pattern is regular, symmetrical, Breath sounds are clear bilaterally. Parent/caregiver reports the patient having shortness of breath on exertion nh2 11:48 11:10 Client placed on continuous cardiac and pulse oximetry monitoring. NIBP nh2 monitoring applied. rf design engineer on. Pulse ox on. NIBP on. nh2 11:48 10:26 Pain: Complains of pain in abdomen Pain radiates to CHEST Pain currently is 8 out nh2 of 10 on a pain scale. Quality of pain is described as aching, Pain began gradually, Is intermittent, nh2 12:29 12:28 Reassessment: Patient is alert, oriented x 3, equal unlabored respirations, skin nh2 warm/dry/pink. pt back from [place], reconnected to monitor. nh2 12:31 11:44 Reassessment: Patient is alert, oriented x 3, equal unlabored respirations, skin nh2 warm/dry/pink. pt transported to CT via stretcher. nh2
--- NOTE | 2025-09-09 14:05 | EDPHYS ---
Physician Documentation [facility] [place] Name: Madison Cerrato Age: 84 yrs Sex: Female : 1940 Arrival Date: 09/09/2025 Time: 10:00 Bed 3 Private MD: ED Physician Som Esparza HPI: 09/09 11:26 This 84 yrs old Female presents to ER via Wheelchair with complaints of cr8 Shortness Of Breath. 11:26 Patient is a 89-year-old female with history of depression, diabetes, CHF hypertension, cr8 CVA in the comes in the emergency room for generalized abdominal pain and reported shallow breathing. She was at her PCPs appointment and he noticed that when he pushed on her belly she was tender. He also noticed that she appeared to have shallow breathing so he sent her to the emergency room. She denies any chest pain nausea vomiting diarrhea. Family denies constipation. They report that she has had decreased appetite and p.o. intake over the last several days though so they are concerned. She has had no recent fever. She is at neurological baseline. She does report feeling depressed.. Historical: - Allergies: 10:19 Codeine; dd2 - PMHx: 10:19 Alzheimer's disease; Congestive heart failure; CVA; Dementia; diabetes mellitus; dd2 Hypercholesterolemia; Hypertensive disorder; kidney disease; - PSHx: 10:19 Cholecystectomy; knee; dd2 - Immunization history:: Adult Immunizations up to date. - Infectious Disease History:: Denies. - Social history:: Smoking status: Patient denies any tobacco usage or history of. ROS: 14:05 Constitutional: as per HPI cr8 Exam: 14:01 Constitutional: This is a well developed, well nourished patient who is awake, alert, cr8 and in no acute distress. Chest/axilla: Normal chest wall appearance and motion. Nontender with no deformity. No lesions are appreciated. Cardiovascular: Regular rate and rhythm with a normal S1 and S2. No gallops, murmurs, or rubs. Respiratory: Lungs have equal breath sounds bilaterally, clear to auscultation. No rales, rhonchi or wheezes noted. No increased work of breathing. Abdomen/GI: Soft, with normal bowel sounds. No distension. No guarding or rebound. There is mild generalized tenderness, no focal tenderness, no rebound, no guarding. Skin: Warm, dry with normal turgor. Normal color with no rashes, no lesions, and no evidence of cellulitis. MS/ Extremity: Pulses equal, no cyanosis. Neurovascular intact. Full, normal range of motion. Neuro: Awake and alert, GCS 15, oriented to person, place, time, and situation. Cranial nerves II-XII grossly intact. Motor strength 5/5 in all extremities. Sensory grossly intact. Vital Signs: 10:17 BP 155 / 61; Pulse 78; Resp 16; Temp 97.5(O); Pulse Ox 99% on R/A; Weight 74.39 kg (M); dd2 11:10 BP 141 / 55; Pulse 77; Resp 17; Pulse Ox 99% on R/A; nh2 12:10 BP 157 / 62; Pulse 82; Resp 18; Pulse Ox 100% on R/A; nh2 13:29 BP 160 / 58; Pulse 77; Resp 18; Temp 97.1(TE); Pulse Ox 98% on R/A; nh2 14:22 BP 162 / 66; Pulse 74; Resp 17; Temp 98.1(TE); Pulse Ox 100% on R/A; nh2 MDM: 10:10 Medical Screening Exam initiated cr8 14:01 Data reviewed: vital signs, nurses notes, old medical records, lab test result(s), EKG, cr8 radiologic studies. Consideration of Admission/Observation Considered possible observation but given her presentation assessment and workup there is no evidence of emergent condition that requires further evaluation at this time.. Counseling: I had a detailed discussion with the patient and/or guardian regarding the historical points, exam findings, and any diagnostic results supporting the discharge/admit diagnosis, lab results, radiology results, the need for outpatient follow up. 09/09 10:21 Order name: Basic Metabolic Panel; Complete Time: 11:37 cr8 09/09 10:21 Order name: CBC with Diff; Complete Time: 11:31 cr8 09/09 10:21 Order name: Troponin HS; Complete Time: 11:37 cr8 09/09 10:21 Order name: UA Rfx Amauri Cult if indicated; Complete Time: 13:32 cr8 09/09 10:21 Order name: XRAY Chest (1 view); Complete Time: 11:17 cr8 09/09 11:37 Order name: CT Abd/Pelvis - Without Contrast; Complete Time: 11:59 cr8 09/09 10:21 Order name: EKG; Complete Time: 10:21 cr8 09/09 10:21 Order name: IV Saline Lock; Complete Time: 13:29 cr8 09/09 10:38 Order name: EKG - Nurse/Tech; Complete Time: 10:44 aa5 09/09 13:01 Order name: Straight Cath - Urine; Complete Time: 13:01 aa5 Administered Medications: No medications were administered Disposition: 20:19 I was immediately available on-site in the Emergency Department for consultation in the ms3 care of the patient. Disposition Summary: 09/09/25 14:04 Discharge Ordered Notes: Location: Home cr8 Condition: Stable cr8 Diagnosis - Abdominal pain, Generalized cr8 - Anorexia cr8 - Other fatigue cr8 Followup: cr8 - With: Emergency Department - When: As needed - Reason: Trouble breathing, Worsening of condition, Recheck today's complaints Followup: cr8 - With: Private Physician - When: 1 - 2 days - Reason: Recheck today's complaints, Continuance of care, Re-evaluation by your physician Discharge Instructions: - Discharge Summary Sheet cr8 - Abdominal Pain, Adult cr8 - Fatigue cr8 Forms: - Medication Reconciliation Form cr8 - Antibiotic Education cr8 - Prescription Opioid Use cr8 - Patient Portal Instructions cr8 - Leadership Thank You Letter cr8 Signatures: Dispatcher [employer] EDMS Pebbles Yi RN RN aa5 Som Esparza DO DO ms3 KELLEN DA SILVA RN RN dd2 Edgar Fuller NP PHOTORADIO OPERATOR cr8 Corrections: (The following items were deleted from the chart) 11:27 11:26 Patient is a 89-year-old female with history of hypertension, CVA in the comes in cr8 the emergency room for generalized abdominal pain and reported shallow breathing. She was at her PCPs appointment and he noticed that when he pushed on her belly she was tender. He also noticed that she appeared to have shallow breathing so he sent her to the emergency room. She denies any chest pain nausea vomiting diarrhea. Family denies constipation. They report that she has had decreased appetite and p.o. intake over the last several days though so they are concerned. She has had no recent fever. She is at neurological baseline. She does report feeling depressed.. cr8
[2025-09-09 14:38] VITALS: BP 162/66; TEMP 98.1; O2SAT 100
== END 2025-09-09 14:27 | disposition home or self-care (01) ==
LOC: ER 10:00
DX: R10.84 Generalized abdominal pain (principal); R63.0 Anorexia; R53.83 Other fatigue; G30.9 Alzheimer's disease, unspecified; F02.80 Dementia in other diseases classified elsewhere, unspecified severity, without behavioral disturbance, psychotic disturbance, mood disturbance, and anxiety
CPT/HCPCS: 36415; 51702; 71045; 74176; 80048; 81001; 84484; 85025; 93005; 99285